=== PATIENT | female | born 1955 | race Caucasian/White ===

== ENCOUNTER → 2016-12-22 | Outpatient (CLI) | payer MEDICARE, MEDICAID ==
[~2016-12-22] MED LIST: ALPR.25T PO; ALPR0.5T7 PO; AMT25T; ASP325T NG; ATR20T PO; BP MEDICATION; BSP10T PO; CLIN-81 PO; CLON1TAB3 PO; DIAZ-345 PO; DIAZ5TAB3 PO; DULO30CA; FNT50TD TD; FRSM40T PO; GBPN100C; GBPN600T PO; HYDR1TAB71 PO; INSASP10V; INSU100V6 SQ; INSU100V8 SC; LACT10SO33 PO; LEVO25CA2 PO; LISI40TA PO; LSNP20T; LVT.025T PO; OMEP20CA12 PO; OXYC10TA63 PO; OXYC5SOL13 PO; POTA10CA16 PO; PROP1TAB77; SITA1TAB6 PO; [UNRECOGNIZED DRUG - REMARK] PO
--- NOTE | 2016-12-25 17:51 | Diagnostic Imaging Report ---
Bilateral screening mammogram. The current study was also evaluated with a Computer Aided Detection (CAD) system. INDICATION: Screening. No current complaints stated on the questionnaire. COMPARISON: 08/12/12. FINDINGS: The breasts are composed of scattered fibroglandular densities. Occasional benign-appearing punctate calcifications are seen. Allowing for technique and positional differences, no suspicious change is seen. IMPRESSION: No significant change. ACR BI-RADS Category 2: Benign findings. Result letter will be mailed to the patient. Note: At least 10% of breast cancer is not imaged by mammography. Dictated by: Dictated on workstation # [id number]
== END ==
LOC: RAD 09:37
PROVIDERS: ATTEND Internal Medicine
DX: Z12.31 Encounter for screening mammogram for malignant neoplasm of breast (principal)
CPT/HCPCS: 77067

== ENCOUNTER → 2017-06-23 | Outpatient (CLI) | payer MEDICARE, MEDICAID ==
[~2017-06-23] MED LIST changes: +ACID1TAB PO; +ALPR1TAB7 PO; +AMLO5TAB2 PO; +ASPI-983 PO; +CEFD300C3 PO; +CLOP75TA28 PO; +DIPH25TA31 PO; +GABA600T2 PO; +HYDR-3820 PO; +HYDR25TA4 PO; +INSU100V16 SQ; +LEVO25TA5 PO; +LIDO76.5 TP; +METH113C21 TP; +OXYC10TA7 PO; +RT-ALBUINH IH; +TEMA15CA PO
--- NOTE | 2017-06-23 19:11 | Diagnostic Imaging Report ---
PA and lateral views of the chest. INDICATION: Pneumonia. FINDINGS: The lungs are clear. The previously seen infiltrates on 06/09/2017 radiograph are resolved. The heart size is at the upper limits of normal. No effusion or pneumothorax. The mediastinum and charbel appear unremarkable. Postkyphoplasty change is seen in the T2 level. IMPRESSION: No acute process. Dictated by: Dictated on workstation # [id number]
== END ==
LOC: RAD 15:48
PROVIDERS: ATTEND Internal Medicine
DX: J18.9 Pneumonia, unspecified organism (principal); R09.02 Hypoxemia
CPT/HCPCS: 71020

== ENCOUNTER 2017-07-12 12:18 | Emergency (ER) | payer MEDICARE, MEDICAID ==
[~2017-07-12] VITALS: Ht 165.1 cm; Wt 125.2 kg
[~2017-07-12 12:18] MED LIST changes: +ATOR10TA PO; +MULT-347 PO
--- OUTSIDE RECORDS SUMMARY | 2017-07-12 12:25 | XMS REPORT | Clinical Summary ---
Author Author [facility] Organization [facility] Address Unknown Phone Unavailable Care Team Providers Care Power Technician Name Role Phone PCP Unavailable Source Comments Some departments are not documenting in the electronic medical record. If you do not see the information that you expected, contact Release of Information in the Health Information Management department at [phone] for further assistance in locating additional records.[facility] Allergies No Known Allergies Current Medications Prescription Sig. Disp. Refills Start End Date Status Date furosemide (LASIX) 40 mg Take 40 mg by mouth Active tablet daily. Sitagliptin-Metformin Take 1 Tab by mouth twice Active (JANUMET) 50-1,000 mg tab daily with meals. methocarbamol (ROBAXIN) Take 750 mg by mouth four Active 750 mg tablet times daily. levothyroxine (SYNTHROID) Take 25 mcg by mouth Active 25 mcg tablet daily. lisinopril (PRINIVIL, Take 40 mg by mouth Active ZESTRIL) 40 mg tablet daily. amLODIPine (NORVASC) 5 mg Take 5 mg by mouth daily. Active tablet aspirin EC 81 mg tablet Take 81 mg by mouth Active daily. gabapentin (NEURONTIN) Take 600 mg by mouth Active 600 mg tablet twice daily. atorvastatin (LIPITOR) 40 Take 40 mg by mouth Active mg tablet daily. insulin glargine (LANTUS) Inject 80 Units into Active 100 unit/mL injection area(s) as directed at bedtime daily. INSULIN ASPART (NOVOLOG Inject into area(s) as Active SC) directed as Needed. Active Problems Problem Noted Date Morbid obesity with BMI of 50.0-59.9, adult ([facility]) 12/14/2013 Overview: BMI 51. 58 year old female with super obesity who presents to clinic for evaluation. She would like to discuss surgery L ast Assessment & Plan: Plan: 1. Risks, benefits and alternatives discussed with patient. She would be a better candidate for gastric sleeve rather than bypass at this point given her many co-morbidities. She will continue bariatric protocol and then we will proceed with surgery (lap gastric sleeve) 2. Needs Cardiology Referral and clearance prior to surgery. 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 Needs Psychology Referral and evaluation prior to surgery. 4. Will see hook and eye sewing machine operator next week and has discussed with Brenna already 5. Patient agrees to lose required weight before surgery. Social History Tobacco Use Types Packs/Day Years Used Date Former Smoker Sex Assigned at Date Recorded Not on file Last Filed Vital Signs Vital Sign Reading Time Taken Blood Pressure 156/74 05/17/2014 11:59 AM CDT Pulse 90 05/17/2014 11:59 AM CDT Temperature 36.9 C (98.4 F) 05/17/2014 11:59 AM CDT Respiratory Rate 18 05/17/2014 11:59 AM CDT Oxygen Saturation - - Inhaled Oxygen - - Concentration Weight 148.6 kg (327 lb 9.6 oz) 05/17/2014 11:59 AM CDT Height 167.6 cm (5' 6") 05/17/2014 11:59 AM CDT Body Mass Index 52.88 05/17/2014 11:59 AM CDT Plan of Treatment Health Maintenance Due Date Last Done Comments HEPATITIS C SCREENING 1954 PHYSICAL (COMPREHENSIVE) 1961 EXAM PERTUSSIS VACCINE 1965 TETANUS VACCINE 1971 CERVICAL CANCER SCREENING 1984 BREAST CANCER SCREENING 1994 COLORECTAL CANCER 2004 SCREENING SHINGLES VACCINE 2014 INFLUENZA VACCINE 03/30/2017 Results Not on filefrom Last 3 Months
--- OUTSIDE RECORDS SUMMARY | 2017-07-12 12:28 | XMS REPORT ---
Author Author GENI RODRIGUEZ [facility] Address Unknown Care Team Providers Care Escort Blind Name Role Phone GENI RODRIGUEZ Unavailable PROBLEMS Type Condition ICD9-CM Code URC76-[id number] Code Onset Dates Condition Status SNOMED Code Problem Encounter for dental examination Z01.20 Active [id number] ALLERGIES No Known Allergies SOCIAL HISTORY Never Assessed PLAN OF CARE VITAL SIGNS MEDICATIONS Medication Instructions Dosage Frequency Start Date End Date Duration Status Temazepam Active Hydrocodone-Acetaminophen Active Lantus Active Gabapentin Active Oxycodone HCl Active Alprazolam Active Lisinopril Active Levothyroxine Sodium Active Norvasc Active Xanax Active RESULTS No Results PROCEDURES Procedure Date Ordered Result Body Site Dental no charge December 16, 2016 IMMUNIZATIONS No Known Immunizations MEDICAL (GENERAL) HISTORY Type Description Date Medical History high blood pressure Medical History stroke Medical History thyroid Medical History diabetes Medical History back trouble Medical History surgery requiring screws Surgical History ruyan y bypass Surgical History appendix Surgical History hysterectomy
[2017-07-12] MEDS ORDERED: ONDANSETRON 4 MG/2 ML (SDV) Z0FRAN IVP ONE (13:00)
[2017-07-12] MEDS ORDERED: fentaNYL INJECTION 100 MCG/2 ML AMP IVP ONE ×2 (13:00→14:15)
--- NOTE | 2017-07-12 13:00 | ED Lower Extremity ---
General Chief Complaint: Lower Extremity Stated Complaint: POST OP RT LEG PAIN, GROIN PAIN Source: patient, RN/ (Marly), old records, caregiver Exam Limitations: no limitations History of Present Illness Time seen by provider: 12:41 Initial Comments Patient presents to ER by private conveyance with a chief complaint she is having significant, severe pain in her right groin. Historically the patient is with diabetes and vascular disease. She has had a heart catheter in the past and recently had pneumonia. She says 4 days ago she had a angiogram through the right femoral artery looking at her lower extremities for a nonhealing left heel ulcer. She had an ultrasound that was positive but the angiogram did not show actionable, obstructive vascular disease. Dr. Luke spoke with this provider prior to her arrival as he had sent her over from his office to be evaluated and he recommended workup for possible fistular cellulitis. The patient reports that she has chronic back pain that does not usually radiate down her have sciatica and she says she also has pretty significant neuropathy and does not have much pain in her legs ever. However she does use hydrocodone 10 mg every 6 hours alternated with oxycodone 10 mg every 6 hours as needed for pain. She says since she has had to use up to 4 hydrocodone and for oxycodone every 6 hours to get any relief of her pain. Her pain relief only lasts about 4-6 hours. She is concerned about using as much pain medicine and has not had a bowel movement in 4 days. She has not been using her over-the- counter bowel regimen because she is only focused on her pain she says. She is having no diarrhea, dysuria, discharge, rash, fever, chills. She is had no trauma or falls. She says it hurts to move her leg but is okay at rest. She is having a hard time standing on that leg secondary to pain. No other surgery to the right hip. Allergies and Home Medications Allergies Uncoded Allergies: TAPE (Allergy, Intermediate, 11/11/14) Home Medications Alprazolam 1 Mg Tablet, 1 MG PO EVERY 6-8 HOURS PRN for ANXIETY, (Reported) Amlodipine Besylate 5 Mg Tablet, 5 MG PO DAILY, (Reported) Aspirin 81 Mg Tablet.dr, 81 MG PO DAILY, (Reported) Atorvastatin Calcium 10 Mg Tablet, 10 MG PO DAILY for 90 Days, #90 Ref 3 Prescribed by: Gema LUKE on 07/08/17 1047 Diazepam 5 Mg Tablet, 5 MG PO Q12H PRN for MUSCLE SPASMS, (Reported) Diphenhydramine HCl 25 Mg Tablet, 25 MG PO Q12H PRN for ALLERGIES, (Reported) Gabapentin 600 Mg Tablet, 600 MG PO BID, (Reported) Hydrocodone/Acetaminophen 1 Each Tablet, 1 TAB PO Q6H PRN for PAIN-MODERATE, ( Reported) Insulin Aspart 100 Unit/1 Ml Susp, 4-15 UNITS SQ SLIDING/SCALE PRN for BS ABOVE 200, (Reported) Insulin Glargine,Hum.rec.anlog 100 Unit/1 Ml Vial, 80 UNITS SQ HS, (Reported) Levothyroxine Sodium 25 Mcg Tablet, 25 MCG PO DAILY, (Reported) Lidocaine HCl 76.5 Gm Cream..g., TP QID PRN for LEG PAIN, (Reported) Lisinopril 40 Mg Tablet, 40 MG PO DAILY, (Reported) Methyl Salicylate/Menthol 113 Gm Cream..g., TP QID PRN for LEG PAIN, (Reported) Multivitamins with Iron 1 Each Tablet, 1 TAB PO DAILY, (Reported) Oxycodone HCl 10 Mg Tablet, 10 MG PO Q6H PRN for PAIN-SEVERE, (Reported) Temazepam 15 Mg Capsule, 15 MG PO HS, (Reported) Constitutional: No chills, No fever, No malaise EENTM: no symptoms reported Respiratory: No cough, No short of breath Cardiovascular: No chest pain, No palpitations Gastrointestinal: No abdominal pain, constipation, No diarrhea, nausea, No vomiting Genitourinary: No discharge, No dysuria : No (postmenopausal) Musculoskeletal: see HPI, back pain Skin: pruritus, rash Past Riinfvw-Uqocbk-Prvspi Hx Patient Social History Alcohol Use: Denies Use Recreational Drug Use: No Smoking Status: Former Smoker Type Used: Cigarettes Former Smoker, Quit: Jul 08, 2010 2nd Hand Smoke Exposure: No Recent Foreign Travel: No Contact w/Someone Who Travel: No Recent Hopitalizations: No Immunizations Up To Date Date of Pneumonia Vaccine: Jun 13, 2013 Date of Influenza Vaccine: May 27, 2017 Seasonal Allergies Seasonal Allergies: Yes Surgeries History of Surgeries: Yes (HYSTERECTOMY 1978, APPY S, GASTRIC BYPASS, BACK KYPHOPLASTY) Surgeries: Abdominal, Appendectomy, Hysterectomy Respiratory History of Respiratory Disorde: Yes (USED TO HAVE HOME O2 PRN) Currently Using CPAP: No Currently Using BIPAP: No Cardiovascular History of Cardiac Disorders: Yes Cardiac Disorders: Hypertension Neurological History of Neurological Disord: Yes Neurological Disorders: Stroke Reproductive System Hx Reproductive Disorders: No Sexually Transmitted Disease: No HIV/AIDS: No 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 Disorders: Denies Genitourinary History of Genitourinary Disor: Yes Genitourinary Disorders: UTI-Chronic Gastrointestinal History of Gastrointestinal Di: Yes (UMBILICAL HERNIA, OCCASIONAL CONSTIPATION- -TAKES LACTULOSE, GASTRIC BYPASS) Gastrointestinal Disorders: Chronic Constipation Musculoskeletal History of Musculoskeletal Dis: Yes (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, 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 IN SOFT TISSUE, L1-2 FX,) Musculoskeletal Disorders: Back Injury, Chronic Back Pain, Fractures Endocrine History of Endocrine Disorders: Yes Endocrine Disorders: Diabetes, Insulin dep HEENT History of HEENT Disorders: Yes HEENT Disorders: Glaucoma Hearing Impairment: Hard of Hearing Cancer History of Cancer: No Psychosocial History of Psychiatric Problem: Yes Behavioral Health Disorders: Anxiety Integumentary History of Skin or Integumenta: No Blood Transfusions History of Blood Disorders: No Family Medical History Family Medial History: Diabetes mellitus G8 BROTHER FH: skin cancer 19 FATHER Hypertension Physical Exam Vital Signs Vital Sign - Last 12Hours 07/12/ 12:40 Temp 98.9 Pulse 85 Resp 20 B/P (MAP) 126/63 Pulse Ox 94 Capillary Refill : General Appearance: WD/WN, mild distress HEENT: PERRL/EOMI, TMs normal, pharynx normal Neck: non-tender, normal inspection, No tender midline Cardiovascular: normal peripheral pulses, regular rate, rhythm, other (trace pedal edema bilaterally) Respiratory: chest non-tender, lungs clear, normal breath sounds Gastrointestinal: normal bowel sounds, non tender, soft, other (corpulent) Back: normal inspection, vertebral tenderness (lumbar) Hips: left hip non-tender, left hip normal inspection, left hip normal range of motion, left hip no evidence of injury, right hip bone tenderness (Medial right femoral head and neck), right hip ecchymosis (popliteal fossa, mild and dependent gluteal region.), right hip limited range of motion (secondary to pain ), right hip pain, right hip soft tissue tenderness, right hip other (erythema to the overlying skin of the right groin but no palpable, pulsatile or fluctuant mass.) Legs: bilateral leg non-tender, bilateral leg normal inspection, bilateral leg normal range of motion, bilateral leg no evidence of injury Knees: bilateral knee non-tender, bilateral knee normal inspection, bilateral knee normal range of motion, bilateral knee no evidence of injury Neurologic/Tendon: normal sensation, normal motor functions, normal tendon functions, responds to pain Neurologic/Psychiatric: no motor/sensory deficits, alert, oriented x 3 Skin: ecchymosis (dependent portions of the right hip and popliteal space.), rash (erythematous skin under the folds of the pannus especially on the right side without any debris, tumor, area of fluctuance, pore or discharge.) Lymphatic: no adenopathy Progress/Results/Core Measures Results/Orders Lab Results Laboratory Tests Test 07/12/17 12:50 07/12/17 13:12 Range/Units White Blood Count 10.1 4.3-11.0 10^3/uL Red Blood Count 2.72 L 4.35-5.85 10^6/uL Hemoglobin 8.2 #L 11.5-16.0 G/DL Hematocrit 26 L 35-52 % Mean Corpuscular Volume 96 80-99 FL Mean Corpuscular Hemoglobin 30 25-34 PG Mean Corpuscular Hemoglobin Concent 31 L 32-36 G/DL Red Cell Distribution Width 14.2 10.0-14.5 % Platelet Count 233 130-400 10^3/uL Mean Platelet Volume 12.3 H 7.4-10.4 FL Neutrophils (%) (Auto) 74 42-75 % Lymphocytes (%) (Auto) 18 12-44 % Monocytes (%) (Auto) 5 0-12 % Eosinophils (%) (Auto) 3 0-10 % Basophils (%) (Auto) 0 0-10 % Neutrophils # (Auto) 7.5 1.8-7.8 X 10^3 Lymphocytes # (Auto) 1.8 1.0-4.0 X 10^3 Monocytes # (Auto) 0.5 0.0-1.0 X 10^3 Eosinophils # (Auto) 0.3 0.0-0.3 10^3/uL Basophils # (Auto) 0.0 0.0-0.1 10^3/uL Sodium Level 134 L 135-145 MMOL/L Potassium Level 5.9 H 3.6-5.0 MMOL/L Chloride Level 104 98-107 MMOL/L Carbon Dioxide Level 22 21-32 MMOL/L Anion Gap 8 5-14 MMOL/L Blood Urea Nitrogen 33 H 7-18 MG/DL Creatinine 1.62 H 0.60-1.30 MG/DL Estimat Glomerular Filtration Rate 32 BUN/Creatinine Ratio 20 Glucose Level 221 H 70-105 MG/DL Lactic Acid Level 1.43 0.50-2.00 MMOL/L Calcium Level 8.5 8.5-10.1 MG/DL Total Bilirubin 0.4 0.1-1.0 MG/DL Aspartate Amino Transf (AST/SGOT) 12 5-34 U/L Alanine Aminotransferase (ALT/SGPT) 12 0-55 U/L Alkaline Phosphatase 105 40-136 U/L Total Protein 7.2 6.4-8.2 GM/DL Albumin 3.6 3.2-4.5 GM/DL Urine Color YELLOW Urine Clarity CLEAR Urine pH 5 5-9 Urine Specific [place] 1.025 H 1.016-1.022 Urine Protein 1+ H NEGATIVE Urine Glucose (UA) NEGATIVE NEGATIVE Urine Ketones NEGATIVE NEGATIVE Urine Nitrite NEGATIVE NEGATIVE Urine Bilirubin NEGATIVE NEGATIVE Urine Urobilinogen NORMAL NORMAL MG/DL Urine Leukocyte Esterase 1+ H NEGATIVE Urine RBC (Auto) NEGATIVE NEGATIVE Urine RBC NONE /HPF Urine WBC 0-2 /HPF Urine Squamous Epithelial Cells 0-2 /HPF Urine Crystals PRESENT H /LPF Urine Uric Acid Crystals RARE H /LPF Urine Bacteria TRACE /HPF Urine Casts NONE /LPF Urine Mucus NEGATIVE /LPF Urine Culture Indicated NO My Orders Orders - KAROL MCCOY Cbc With Automated Diff (07/12/17 12:49) Comprehensive Metabolic Panel (07/12/17 12:49) Lactic Acid Analyzer (07/12/17 12:49) Ua Culture If Indicated (07/12/17 12:49) Blood Culture (07/12/17 12:49) Us Right Low Ext [id number] (07/12/17 12:49) Ondansetron Injection (Zofran Injectio (07/12/17 13:00) Fentanyl Injection (Sublimaze Injection (07/12/17 13:00) Us Venous Lower Ext Rt (07/12/17 ) Fentanyl Injection (Sublimaze Injection (07/12/17 14:15) Saline Lock/Iv-Start (07/12/17 14:06) Ns Iv 1000 Ml (Sodium Chloride 0.9%) (07/12/17 14:06) Ct Abdomen/Pelvis Wo (07/12/17 14:33) Medications Given in ED Current Medications Medications Dose Ordered Sig/Judi Route Start Time Stop Time Status Last Admin Dose Admin Fentanyl Citrate 50 mcg ONCE ONCE IVP 07/12/17 14:15 07/12/17 14:16 DC 07/12/17 14:14 50 MCG Fentanyl Citrate 100 mcg ONCE ONCE IVP 07/12/17 13:00 07/12/17 13:01 DC 07/12/17 12:59 100 MCG Ondansetron HCl 4 mg ONCE ONCE IVP 07/12/17 13:00 07/12/17 13:01 DC 07/12/17 12:59 4 MG Sodium Chloride 1,000 ml @ 0 mls/hr Q0M ONCE IV 07/12/17 14:06 07/12/17 14:08 DC 07/12/17 14:14 0 MLS/HR Vital Signs/I&O Vital Sign - Last 12Hours 07/12/17 12:40 Temp 98.9 Pulse 85 Resp 20 B/P (MAP) 126/63 Pulse Ox 94 Progress Note #1: Time: 13:04 Progress Note We'll obtain an ultrasound of the right femoral area looking for fistulas, abscesses or other evidence of a cellulitis. We'll treat her pain and nausea. We 'll obtain urine by straight catheter and some blood cultures in case she does have an infection. We'll also obtain ultrasound of the deep veins of the right lower extremity to rule out a clot. If we do not find an answer for her pain when may also obtain MRI of her back and hips looking for worsening degenerative lumbar joint disease. Progress Note #2: Time: 14:03 Progress Note Acute kidney injury and the acute blood loss anemia probably due to the recent catheter. We'll give her a bag of fluids. We'll also obtain a CT abdomen pelvis to rule out any other emergent pathology. If she is having pain from her exacerbation of chronic back pain and a outpatient MRI would likely be more useful. Discussed imaging options with Dr. Norman, radiology. Progress Note #3: Time: 15:57 Progress Note Consolidation left lower lobe seen on CT as noted and clinically there is no evidence of a pneumonia. No white count, cough, fever. We will allow her to follow up outpatient for continued pain management with Dr. Ayoub. Patient is okay with this plan at this time. Her pain is under much better control and has not required any more pain meds for some time. Diagnostic Imaging Diagonstic Imaging: Ultrasound Plain Films/CT/US/NM/MRI: leg (right) Comments [facility] [employer] [facility] [place], [place] NAME: TOSHA LEVINE [facility] REC#: [id number] PT STATUS: REG ER : 1955 PHYSICIAN: KAROL MCCOY MD ADMIT DATE: 07/12/17/ER Draft Date of Exam:07/12/17 US RIGHT LOW EXT [id number] EXAM: Arterial vascular ultrasound of the right groin. INDICATION: History of cardiac catheter performed last with pain in the right groin. FINDINGS: There is an expected tiny hematoma measuring 1.5 x 2.1 x 1.7 cm seen anterior to the SFA, expected after a cardiac cath with no significant hematoma. No pseudoaneurysm. There is color flow within the common femoral artery with mildly increased flow velocity of 183 cm/second and triphasic waveforms. The proximal SFA is also patent with triphasic waveforms and velocity of 142 cm/second. The common femoral vein is patent with normal waveforms. IMPRESSION: No significant hematoma, pseudoaneurysm or evidence of AV fistula. Dictated on workstation # [id number] Dict: 07/12/17 1504 Trans: 07/12/17 1518 [facility] [id number] Interpreted by: TARYN NORMAN MD Electronically signed by: NAME: RYANARMINDAANITATOSHA [facility] REC#: [id number] PHYSICIAN: KAROL MCCOY MD CC: TARYN NORMAN MD; KAROL MCCOY Page 1 of 1 RADIOLOGY REPORT [facility] [employer] [facility] [place], [place] CC: TARYN NORMAN MD; KAROL MCCOY Page 1 of 1 RADIOLOGY REPORT NAME: ANITA LEVINELEEN [facility] REC#: [id number] PT STATUS: REG ER : 1955 PHYSICIAN: KAROL MCCOY MD ADMIT DATE: 07/12/17/ER Signed Date of Exam: 07/12/17 US VENOUS LOWER EXT RT EXAMINATION: Right lower extremity duplex venous ultrasound. TECHNIQUE: DVT protocol. Multiple sonographic images with color Doppler and waveform interrogation were performed of the right lower extremity veins with compression and augmentation maneuvers. INDICATION: Right leg pain and swelling. FINDINGS: The right lower extremity veins from the groin to below the knee veins were examined with normal color-flow, compressibility and normal waveform demonstrated. The great saphenous vein is patent. IMPRESSION: No evidence of DVT in the right lower extremity. Dictated by: Dictated on workstation # [id number] Dict: 07/12/17 1500 Trans: 07/12/17 1500 Interpreted by: TARYN NORMAN MD Electronically signed by: TARYN NORMAN MD 07/12/17 1500 Reviewed: Reviewed by Or Diagonstic Imaging: CT Plain Films/CT/US/NM/MRI: abdomen, pelvis Comments Left base dependent portion with small area of consolidation most consistent with mild atelectasis. Is mostly decompressed. Stone in the right renal pelvis nonobstructing. Gallbladder noninflammatory without free fluid. Large nonobstructing umbilical/ventral hernia containing a loop of small bowel. No evidence of free fluid, inflammation, stridor relation or incarceration. VIA [place], [place] NAME: TOSHA LEVINE [facility] REC#: [id number] PT STATUS: REG ER : 1955 PHYSICIAN: KAROL MCCOY MD ADMIT DATE: 07/12/17/ER Draft Date of Exam:07/12/17 CT ABDOMEN/PELVIS WO PROCEDURE: CT abdomen and pelvis without contrast. TECHNIQUE: Multiple contiguous axial images were obtained through the abdomen and pelvis without the use of intravenous contrast. INDICATION: Right-sided groin pain. FINDINGS: There is a left lower lobe consolidation which could relate to pneumonia or atelectasis. The liver, the spleen, the pancreas, and adrenal glands appear unremarkable. The gallbladder is hydropic with the suggestion of layering sludge. No obvious calcified stones. Staple line is seen along the stomach and in small bowel loops within the proximal left side of the abdomen. No significant free fluid or fluid collection in the abdomen or pelvis is seen. The kidneys demonstrate no hydronephrosis. There is a 9 mm nonobstructive stone in the mid right kidney. No ureteric stones or bladder stone is identified. No significant free fluid or fluid collection in the abdomen or pelvis is seen. Changes suggestive of prior hysterectomy are noted. There is an abdominal wall defect with a ventral hernia containing nonobstructed bowel loops seen centered just to the right of midline in the lower abdomen. No CT evidence of strangulation or bowel obstruction. The abdominal wall corresponding defect measures in craniocaudal dimension 3 cm and is 5 cm in transverse dimension. The osseous structures demonstrate post-kyphoplasty changes in the L1 vertebral body. There are prominent degenerative facet changes in the mid and lower lumbar spine and disc degenerative changes at L4-5 and L5-S1 seen. There is also bilateral hip joint moderate degenerative change. In the right groin post catheter changes are seen with a small hematoma noted. IMPRESSION: 1. Left lower lobe consolidation may relate to pneumonia or atelectasis. Correlate clinically. 2. There is gallbladder wall distention with suggestion of layering sludge. No definite calcified stone. 3. A 9 mm nonobstructive stone in the right kidney. 4. Ventral hernia in the lower abdomen containing nonobstructed bowel loops. 5. Right groin changes suggestive of small hematoma related to recent vascular procedure seen. Dictated on workstation # [id number] Dict: 07/12/17 1518 Trans: 07/12/17 1546 [facility] [id number] Interpreted by: TARYN NORMAN MD Electronically signed by: Reviewed: Reviewed by Me Consults Consults : Consulting Physician: Gema LUKE MD Consults Notes 4 days ago he performed a right femoral catheter to look at the angiogram of the lower left extremity and did not find any obstructive disease. She says she' s had pain since then and has been using increasing pain meds to get control of her pain. He says he listened could not hear a bruit or feel any thrills over the right femoral space. He recommends we ultrasound the area looking for a fistula as well as her lower extremity on the right side looking for deep vein thrombosis. He would recommend a CBC to follow the hemoglobin as well as possible leukocytosis to indicate infection. If he can be of any further help he would like us to contact him. Otherwise she thinks would be reasonable if everything else is okay for her to follow up for pain management with her primary care physician this week. Departure Impression Impression: Primary Impression: SANTOS (acute kidney injury) Additional Impressions: Acute blood loss anemia Right inguinal pain Hematoma of groin Qualified Codes: S30.1XXA - Contusion of abdominal wall, initial encounter Disposition: HOME, SELF-CARE Condition: Stable Departure-Patient Inst. Decision time for Depature: 15:59 Referrals: MARIE AYOUB DO (PCP/Family) Primary Care Physician Patient Instructions: HEMATOMA Add. Discharge Instructions: Please stay active and follow-up this week with your primary care physician for continued management of your pain. You should start taking MiraLAX twice a day while using opiates at higher level. Titrate to effect. If you have worsening chest pain, shortness of breath, fevers or nausea and vomiting he should return to the ER otherwise follow up with your primary care physician. All discharge instructions reviewed with patient and/or family. Voiced understanding. Copy Copies To 1: MARIE AYOBU TITUS J Jul 12, 2017 13:00
[2017-07-12 13:04] LABS: BASOPHILS % (AUTO) 0 % (0-10); EOSINOPHILS # (AUTO) 0.3 10^3/uL (0.0-0.3); EOSINOPHILS % (AUTO) 3 % (0-10); LYMPHOCYTES # (AUTO) 1.8 X 10^3 (1.0-4.0); LYMPHOCYTES % (AUTO) 18 % (12-44); MEAN CORPUSCULAR HEMOGLOBIN 30 PG (25-34); MEAN CORPUSCULAR HGB CONC 31 G/DL (32-36); MEAN CORPUSCULAR VOLUME 96 FL (80-99); MEAN PLATELET VOLUME 12.3 FL (7.4-10.4); MONOCYTES # (AUTO) 0.5 X 10^3 (0.0-1.0); MONOCYTES % (AUTO) 5 % (0-12); NEUTROPHILS # (AUTO) 7.5 X 10^3 (1.8-7.8); NEUTROPHILS % (AUTO) 74 % (42-75); PLATELET COUNT 233 10^3/uL (130-400); RED BLOOD COUNT 2.72 10^6/uL (4.35-5.85); RED CELL DISTRIBUTION WIDTH 14.2 % (10.0-14.5); WHITE BLOOD COUNT 10.1 10^3/uL (4.3-11.0)
[2017-07-12 13:15] LABS: ALBUMIN 3.6 GM/DL (3.2-4.5); BILIRUBIN,TOTAL 0.4 MG/DL (0.1-1.0); CALCIUM 8.5 MG/DL (8.5-10.1); CREATININE SERUM 1.62 MG/DL (0.60-1.30); POTASSIUM 5.9 MMOL/L (3.6-5.0); TOTAL PROTEIN 7.2 GM/DL (6.4-8.2)
[2017-07-12 13:22] LABS: BILIRUBIN,URINE NEGATIVE (NEGATIVE); KETONES,URINE NEGATIVE (NEGATIVE); LEUKOCYTE ESTERASE ,URINE 1+ (NEGATIVE); NITRITE,URINE NEGATIVE (NEGATIVE); PH,URINE 5 (5-9); PROTEIN,URINE 1+ (NEGATIVE); UROBILINOGEN,URINE NORMAL (NORMAL)
[2017-07-12 13:37] LABS: SQUAMOUS EPITHELIAL CELL,UR 0-2 /HPF; URIC ACID CRYSTALS,URINE RARE /LPF; WBC,URINE 0-2 /HPF
[2017-07-12] MEDS ORDERED: NS IV 1000 ML 1,000 ML IV ONE (14:06)
--- NOTE | 2017-07-12 15:03 | Diagnostic Imaging Report ---
EXAMINATION: Right lower extremity duplex venous ultrasound. TECHNIQUE: DVT protocol. Multiple sonographic images with color Doppler and waveform interrogation were performed of the right lower extremity veins with compression and augmentation maneuvers. INDICATION: Right leg pain and swelling. FINDINGS: The right lower extremity veins from the groin to below the knee veins were examined with normal color-flow, compressibility and normal waveform demonstrated. The great saphenous vein is patent. IMPRESSION: No evidence of DVT in the right lower extremity. Dictated by: Dictated on workstation # [id number]
--- NOTE | 2017-07-12 15:19 | Diagnostic Imaging Report ---
EXAM: Arterial vascular ultrasound of the right groin. INDICATION: History of cardiac catheter performed last with pain in the right groin. FINDINGS: There is an expected tiny hematoma measuring 1.5 x 2.1 x 1.7 cm seen anterior to the SFA, expected after a cardiac cath with no significant hematoma. No pseudoaneurysm. There is color flow within the common femoral artery with mildly increased flow velocity of 183 cm/second and triphasic waveforms. The proximal SFA is also patent with triphasic waveforms and velocity of 142 cm/second. The common femoral vein is patent with normal waveforms. IMPRESSION: No significant hematoma, pseudoaneurysm or evidence of AV fistula. Dictated by: Dictated on workstation # [id number]
--- NOTE | 2017-07-12 15:46 | Diagnostic Imaging Report ---
PROCEDURE: CT abdomen and pelvis without contrast. TECHNIQUE: Multiple contiguous axial images were obtained through the abdomen and pelvis without the use of intravenous contrast. INDICATION: Right-sided groin pain. FINDINGS: There is a left lower lobe consolidation which could relate to pneumonia or atelectasis. The liver, the spleen, the pancreas, and adrenal glands appear unremarkable. The gallbladder is hydropic with the suggestion of layering sludge. No obvious calcified stones. Staple line is seen along the stomach and in small bowel loops within the proximal left side of the abdomen. No significant free fluid or fluid collection in the abdomen or pelvis is seen. The kidneys demonstrate no hydronephrosis. There is a 9 mm nonobstructive stone in the mid right kidney. No ureteric stones or bladder stone is identified. No significant free fluid or fluid collection in the abdomen or pelvis is seen. Changes suggestive of prior hysterectomy are noted. There is an abdominal wall defect with a ventral hernia containing nonobstructed bowel loops seen centered just to the right of midline in the lower abdomen. No CT evidence of strangulation or bowel obstruction. The abdominal wall corresponding defect measures in craniocaudal dimension 3 cm and is 5 cm in transverse dimension. The osseous structures demonstrate post-kyphoplasty changes in the L1 vertebral body. There are prominent degenerative facet changes in the mid and lower lumbar spine and disc degenerative changes at L4-5 and L5-S1 seen. There is also bilateral hip joint moderate degenerative change. In the right groin post catheter changes are seen with a small hematoma noted. IMPRESSION: 1. Left lower lobe consolidation may relate to pneumonia or atelectasis. Correlate clinically. 2. There is gallbladder wall distention with suggestion of layering sludge. No definite calcified stone. 3. A 9 mm nonobstructive stone in the right kidney. 4. Ventral hernia in the lower abdomen containing nonobstructed bowel loops. 5. Right groin changes suggestive of small hematoma related to recent vascular procedure seen. Dictated by: Dictated on workstation # [id number]
[2017-07-12 16:13] VITALS: BP 145/78
== END 2017-07-12 16:13 | disposition home or self-care (01) ==
LOC: EDUNIT# 12:18 → ER 12:21
DX: N17.9 Acute kidney failure, unspecified (principal); D62 Acute posthemorrhagic anemia; M79.81 Nontraumatic hematoma of soft tissue; F41.9 Anxiety disorder, unspecified; E11.40 Type 2 diabetes mellitus with diabetic neuropathy, unspecified; E11.621 Type 2 diabetes mellitus with foot ulcer; L97.429 Non-pressure chronic ulcer of left heel and midfoot with unspecified severity; K59.09 Other constipation; Z87.01 Personal history of pneumonia (recurrent); Z87.81 Personal history of (healed) traumatic fracture; Z87.828 Personal history of other (healed) physical injury and trauma; Z86.73 Personal history of transient ischemic attack (TIA), and cerebral infarction without residual deficits; Z90.710 Acquired absence of both cervix and uterus; Z90.49 Acquired absence of other specified parts of digestive tract; Z90.89 Acquired absence of other organs; Z87.891 Personal history of nicotine dependence; Z79.4 Long term (current) use of insulin; Z79.82 Long term (current) use of aspirin
CPT/HCPCS: 36415; 51701; 74176; 80053; 81000; 83605; 85025; 87040; 93926

== ENCOUNTER 2017-07-14 07:42 | Observation (INO) | payer MEDICARE, MEDICAID ==
[~2017-07-14] VITALS: Ht 170.2 cm; Wt 125.2 kg
--- OUTSIDE RECORDS SUMMARY | 2017-07-14 07:52 | XMS REPORT ---
Author Author RODERICK LEMONS Organization [facility] Address [address] [place] [address] Care Team Providers Care Medical Office Technology Instructor Name Role Phone CRISTO RODERICK Unavailable PROBLEMS Type Condition ICD9-CM Code [id number] Code Onset Dates Condition Status SNOMED Code Problem Encounter for dental examination Z01.20 Active [id number] ALLERGIES No Known Allergies SOCIAL HISTORY Never Assessed PLAN OF CARE Activity Details Follow Up First Available Reason:Restorative VITAL SIGNS Heart Rate 71 bpm 2016-12-29 Blood pressure systolic 154 mmHg 2016-12-29 Blood pressure diastolic 87 mmHg 2016-12-29 MEDICATIONS Medication Instructions Dosage Frequency Start Date End Date Duration Status Lisinopril Active Gabapentin Active Xanax Active Temazepam Active Norvasc Active Oxycodone HCl Active Levothyroxine Sodium Active Hydrocodone-Acetaminophen Active Alprazolam Active Lantus Active RESULTS No Results PROCEDURES Procedure Date Ordered Result Body Site COMP ORAL EVALUATION - NEW/EST PT December 29, 2016 BITEWINGS - TWO FILMS December 29, 2016 TOPICAL FLUORIDE VARNISH December 29, 2016 PROPHYLAXIS - ADULT December 29, 2016 IMMUNIZATIONS No Known Immunizations MEDICAL (GENERAL) HISTORY Type Description Date Medical History high blood pressure Medical History stroke Medical History thyroid Medical History diabetes Medical History back trouble Medical History surgery requiring screws Surgical History ruyan y bypass Surgical History appendix Surgical History hysterectomy
--- OUTSIDE RECORDS SUMMARY | 2017-07-14 07:52 | XMS REPORT | Clinical Summary ---
Author Author [facility] Organization [facility] Address Unknown Phone Unavailable Care Team Providers Care Inspector Process Name Role Phone PCP Unavailable Source Comments Some departments are not documenting in the electronic medical record. If you do not see the information that you expected, contact Release of Information in the Health Information Management department at [phone] for further assistance in locating additional records.[facility] Allergies No Known Allergies Current Medications Prescription [...] Morbid obesity with BMI of 50.0-59.9, adult ([facility]) 12/14/2013 Overview: BMI 51. 58 year old [...] prior to surgery. Evelio does not have sales specialist 3. Needs Psychology Referral and evaluation prior to surgery. 4. Will see carpet installer next week and has discussed with Brenna [...]
[2017-07-14 08:13] LABS: BASOPHILS % (AUTO) 0 % (0-10); EOSINOPHILS # (AUTO) 0.2 10^3/uL (0.0-0.3); EOSINOPHILS % (AUTO) 2 % (0-10); LYMPHOCYTES # (AUTO) 1.3 X 10^3 (1.0-4.0); LYMPHOCYTES % (AUTO) 16 % (12-44); MEAN CORPUSCULAR HEMOGLOBIN 30 PG (25-34); MEAN CORPUSCULAR HGB CONC 32 G/DL (32-36); MEAN CORPUSCULAR VOLUME 95 FL (80-99); MEAN PLATELET VOLUME 11.2 FL (7.4-10.4); MONOCYTES # (AUTO) 0.5 X 10^3 (0.0-1.0); MONOCYTES % (AUTO) 6 % (0-12); NEUTROPHILS # (AUTO) 6.1 X 10^3 (1.8-7.8); NEUTROPHILS % (AUTO) 76 % (42-75); PLATELET COUNT 245 10^3/uL (130-400); RED BLOOD COUNT 2.78 10^6/uL (4.35-5.85); RED CELL DISTRIBUTION WIDTH 13.7 % (10.0-14.5); WHITE BLOOD COUNT 8.1 10^3/uL (4.3-11.0)
[2017-07-14] MEDS ORDERED: LORazepam INJ 2 MG/ML (ATIVAN) VIAL IVP ONE (08:15)
[2017-07-14] MEDS ORDERED: fentaNYL INJECTION 100 MCG/2 ML AMP IVP ONE ×2 (08:15→10:30)
[2017-07-14 08:30] LABS: ALBUMIN 3.6 GM/DL (3.2-4.5); BILIRUBIN,TOTAL 0.6 MG/DL (0.1-1.0); CALCIUM 8.9 MG/DL (8.5-10.1); CREATININE SERUM 1.09 MG/DL (0.60-1.30); POTASSIUM 5.4 MMOL/L (3.6-5.0); TOTAL PROTEIN 7.1 GM/DL (6.4-8.2); hs C REACTIVE PROTEIN 4.03 MG/DL (0.00-0.50)
[2017-07-14] MEDS ORDERED: NS IV 1000 ML 1,000 ML IV ONE (08:38)
--- NOTE | 2017-07-14 08:53 | ED General ---
General Stated Complaint: RT LEG AND STOMACH PAIN,POST OP Source of Information: Patient, Old Records Exam Limitations: No Limitations History of Present Illness Time Seen by Provider: 07:45 Initial Comments This 61-year-old woman presents to the emergency room with complaints of right groin and leg pain that has been intense since having a catheterization angiography of the lower extremities on May 08. She has been taking her usual pain medications without significant relief. She was seen in this ER on the and evaluated with ultrasound and CT scan. There were several incidental findings but no specific finding to explain her pain. There was a small hematoma in the right groin. Patient is crying and yelling at me on assessment. She is difficult to understand because of her emotional state. She reports difficulty bearing weight and walking because of the pain in her thigh. She has ecchymosis and warmth to the inner upper thigh. She was noted to have acute kidney injury on her prior visit to the ER. Report, lab, and imaging from her ER visit on the were reviewed. Patient was noted to have mild to moderate peripheral vascular disease without stenosis requiring intervention. Allergies and Home Medications Allergies Uncoded Allergies: TAPE (Allergy, Intermediate, 11/11/14) Home Medications Albuterol Sulfate 18 Gm Hfa.aer.ad, 2 PUFF INH Q4H PRN for SHORTNESS OF BREATH, (Reported) Alprazolam 1 Mg Tablet, 1 MG PO QID PRN for ANXIETY, (Reported) Amlodipine Besylate 5 Mg Tablet, 5 MG PO DAILY, (Reported) Aspirin 81 Mg Tablet.dr, 81 MG PO DAILY, (Reported) Atorvastatin Calcium 10 Mg Tablet, 10 MG PO DAILY, (Reported) Diazepam 5 Mg Tablet, 5 MG PO Q12H PRN for MUSCLE SPASMS, (Reported) Diphenhydramine HCl 25 Mg Tablet, 25 MG PO Q12H PRN for ALLERGIES, (Reported) Gabapentin 600 Mg Tablet, 600 MG PO BID, (Reported) Hydrocodone/Acetaminophen 1 Each Tablet, 1 TAB PO Q6H PRN for PAIN-MODERATE, ( Reported) Insulin Aspart 100 Unit/1 Ml Susp, 4-15 UNITS SQ SLIDING/SCALE PRN for BS ABOVE 200, (Reported) Insulin Glargine,Hum.rec.anlog 100 Unit/1 Ml Vial, 80 UNITS SQ HS, (Reported) Levothyroxine Sodium 25 Mcg Tablet, 25 MCG PO DAILY, (Reported) Lidocaine HCl 76.5 Gm Cream..g., TP QID PRN for LEG PAIN, (Reported) Lisinopril 40 Mg Tablet, 40 MG PO DAILY, (Reported) Methyl Salicylate/Menthol 113 Gm Cream..g., TP QID PRN for LEG PAIN, (Reported) Multivitamins with Iron 1 Each Tablet, 1 TAB PO DAILY, (Reported) Oxycodone HCl 10 Mg Tablet, 10 MG PO Q6H PRN for PAIN-SEVERE, (Reported) Temazepam 15 Mg Capsule, 15 MG PO HS, (Reported) Constitutional: no symptoms reported EENTM: no symptoms reported Respiratory: no symptoms reported Cardiovascular: no symptoms reported Gastrointestinal: no symptoms reported Genitourinary: no symptoms reported Musculoskeletal: see HPI Skin: see HPI Psychiatric/Neurological: No Symptoms Reported Hematologic/Lymphatic: See HPI Immunological/Allergic: no symptoms reported Past Ycpoolx-Jqmfmn-Lmvsfg Hx Patient Social History Type Used: Cigarettes Former Smoker, Quit: Jul 08, 2010 2nd Hand Smoke Exposure: No Recent Foreign Travel: No Contact w/Someone Who Travel: No Recent Hopitalizations: No Immunizations Up To Date Date of Pneumonia Vaccine: Jun 13, 2013 Date of Influenza Vaccine: May 27, 2017 Seasonal Allergies Seasonal Allergies: Yes Surgeries History of Surgeries: Yes (HYSTERECTOMY 1978, APPY 1959'S, GASTRIC BYPASS, BACK KYPHOPLASTY) Surgeries: Abdominal, Appendectomy, Hysterectomy, Vascular Surgery Respiratory History of Respiratory Disorde: Yes (USED TO HAVE HOME O2 PRN) Currently Using CPAP: No Currently Using BIPAP: No Cardiovascular History of Cardiac Disorders: Yes Cardiac Disorders: Hypertension, Peripheral Vascular Neurological History of Neurological Disord: Yes Neurological Disorders: Stroke Reproductive System Hx Reproductive Disorders: No Sexually Transmitted Disease: No HIV/AIDS: No 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 Disorders: Denies Genitourinary History of Genitourinary Disor: Yes Genitourinary Disorders: UTI-Chronic Gastrointestinal History of Gastrointestinal Di: Yes (UMBILICAL HERNIA, OCCASIONAL CONSTIPATION- -TAKES LACTULOSE, GASTRIC BYPASS) Gastrointestinal Disorders: Chronic Constipation Musculoskeletal History of Musculoskeletal Dis: Yes (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, 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 IN SOFT TISSUE, L1-2 FX,) Musculoskeletal Disorders: Back Injury, Chronic Back Pain, Fractures Endocrine History of Endocrine Disorders: Yes Endocrine Disorders: Diabetes, Insulin dep HEENT History of HEENT Disorders: Yes HEENT Disorders: Glaucoma Hearing Impairment: Hard of Hearing Cancer History of Cancer: No Psychosocial History of Psychiatric Problem: Yes Behavioral Health Disorders: Anxiety Integumentary History of Skin or Integumenta: No Blood Transfusions History of Blood Disorders: No Family Medical History Family Medial History: Diabetes mellitus G8 BROTHER FH: skin cancer 19 FATHER Hypertension Physical Exam Vital Signs Vital Sign - Last 12Hours 07/14/17 07/14/17 08:24 11:37 Temp 98.8 Pulse 91 Resp 18 B/P (MAP) 191/67 Pulse Ox 94 O2 Delivery Room Air O2 Flow Rate 2.00 Capillary Refill : General Appearance: WD/WN, Moderate Distress, Obese HEENT: PERRL/EOMI, Normal ENT Inspection, Pharynx Normal Neck: Normal Inspection Respiratory: Lungs Clear, Normal Breath Sounds, No Accessory Muscle Use, No Respiratory Distress Cardiovascular: Regular Rate, Rhythm, No Edema, No Murmur, Normal Peripheral Pulses (strong right pedal pulse) Gastrointestinal: Normal Bowel Sounds, Non Tender, Soft Extremity: Normal Capillary Refill, Normal Range of Motion, Other (tenderness, ecchymosis, and warmth of the right upper medial thigh. Distal exam unremarkable. Catheter insertion site is well healing and free of inflammatory signs or symptoms.) Neurologic/Psychiatric: Alert, Oriented x3, No Motor/Sensory Deficits, weighter II- XII Norm as Tested, Other (very anxious) Skin: Normal Color, Warm/Dry, Ecchymosis Progress/Results/Core Measures Results/Orders Lab Results Laboratory Tests Test 07/14/17 08:05 07/14/17 09:35 07/14/17 20:47 Range/Units White Blood Count 8.1 4.3-11.0 10^3/uL Red Blood Count 2.78 L 4.35-5.85 10^6/uL Hemoglobin 8.4 L 11.5-16.0 G/DL Hematocrit 27 L 35-52 % Mean Corpuscular Volume 95 80-99 FL Mean Corpuscular Hemoglobin 30 25-34 PG Mean Corpuscular Hemoglobin Concent 32 32-36 G/DL Red Cell Distribution Width 13.7 10.0-14.5 % Platelet Count 245 130-400 10^3/uL Mean Platelet Volume 11.2 H 7.4-10.4 FL Neutrophils (%) (Auto) 76 H 42-75 % Lymphocytes (%) (Auto) 16 12-44 % Monocytes (%) (Auto) 6 0-12 % Eosinophils (%) (Auto) 2 0-10 % Basophils (%) (Auto) 0 0-10 % Neutrophils # (Auto) 6.1 1.8-7.8 X 10^3 Lymphocytes # (Auto) 1.3 1.0-4.0 X 10^3 Monocytes # (Auto) 0.5 0.0-1.0 X 10^3 Eosinophils # (Auto) 0.2 0.0-0.3 10^3/uL Basophils # (Auto) 0.0 0.0-0.1 10^3/uL Sodium Level 137 135-145 MMOL/L Potassium Level 5.4 H 3.6-5.0 MMOL/L Chloride Level 103 98-107 MMOL/L Carbon Dioxide Level 28 21-32 MMOL/L Anion Gap 6 5-14 MMOL/L Blood Urea Nitrogen 23 H 7-18 MG/DL Creatinine 1.09 0.60-1.30 MG/DL Estimat Glomerular Filtration Rate 51 BUN/Creatinine Ratio 21 Glucose Level 208 H 70-105 MG/DL Calcium Level 8.9 8.5-10.1 MG/DL Total Bilirubin 0.6 0.1-1.0 MG/DL Aspartate Amino Transf (AST/SGOT) 14 5-34 U/L Alanine Aminotransferase (ALT/SGPT) 13 0-55 U/L Alkaline Phosphatase 97 40-136 U/L C-Reactive Protein High Sensitivity 4.03 H 0.00-0.50 MG/DL Total Protein 7.1 6.4-8.2 GM/DL Albumin 3.6 3.2-4.5 GM/DL Urine Color YELLOW Urine Clarity CLEAR Urine pH 5 5-9 Urine Specific Aragon 1.010 L 1.016-1.022 Urine Protein 1+ H NEGATIVE Urine Glucose (UA) 3+ H NEGATIVE Urine Ketones NEGATIVE NEGATIVE Urine Nitrite NEGATIVE NEGATIVE Urine Bilirubin NEGATIVE NEGATIVE Urine Urobilinogen NORMAL NORMAL MG/DL Urine Leukocyte Esterase NEGATIVE NEGATIVE Urine RBC (Auto) NEGATIVE NEGATIVE Urine RBC NONE /HPF Urine WBC NONE /HPF Urine Squamous Epithelial Cells RARE /HPF Urine Crystals NONE /LPF Urine Bacteria NEGATIVE /HPF Urine Casts NONE /LPF Urine Mucus NEGATIVE /LPF Urine Culture Indicated NO Glucometer 206 H 70-110 MG/DL My Orders Orders - EDDA PATEL MD Cbc With Automated Diff (07/14/17 08:03) Comprehensive Metabolic Panel (07/14/17 08:03) Hs C Reactive Protein (07/14/17 08:03) Ua Culture If Indicated (07/14/17 08:03) Saline Lock/Iv-Start (07/14/17 08:03) Fentanyl Injection (Sublimaze Injection (07/14/17 08:15) Lorazepam Injection (Ativan Injection) (07/14/17 08:15) Us Right Low Ext [id number] (07/14/17 08:25) Us Venous Lower Ext Rt (07/14/17 08:25) Ns Iv 1000 Ml (Sodium Chloride 0.9%) (07/14/17 08:38) Fentanyl Injection (Sublimaze Injection (07/14/17 10:30) Ct Angio Ext Lower Right W (07/14/17 11:14) Iohexol Injection (Omnipaque 350 Mg/Ml 1 (07/14/17 11:45) Ns (Ivpb) (Sodium Chloride 0.9% Ivpb Bag (07/14/17 11:45) Medications Given in ED Current Medications Medications Dose Ordered Sig/Judi Route Start Time Stop Time Status Last Admin Dose Admin Fentanyl Citrate 75 mcg ONCE ONCE IVP 07/14/17 10:30 07/14/17 10:31 DC 07/14/17 10:47 75 MCG Vital Signs/I&O Vital Sign - Last 12Hours 07/14/17 07/14/17 07/14/17 07/14/17 11:35 11:37 16:00 19:00 Temp 98.3 Pulse 82 81 77 Resp 18 20 B/P (MAP) 164/72 Pulse Ox 94 93 O2 Delivery Room Air Nasal Cannula Room Air O2 Flow Rate 2.00 07/14/17 20:21 Temp 97.7 Pulse 76 Resp 20 B/P (MAP) 139/67 Pulse Ox 93 O2 Delivery Room Air Progress Note #1: Time: 08:45 Progress Note Patient was interviewed and examined. She was then treated with fentanyl and Ativan to calm her emotional state. Her right groin and thigh were then examined more thoroughly. She was found to have ecchymosis, tenderness, and warmth in the medial right upper thigh. The catheter insertion site appeared well healed and normal. She had a normal exam distally. There were strong pedal pulses. Sensation and range of motion in the foot were intact. Progress Note #2: Time: 10:41 Progress Note Case was reviewed with Dr. Luke who is uncertain of why the patient has expanding hematomas but believes this warrants admission for observation. He requests admission to the hospitalist service with consultation to him. He requests repeat ultrasound in the morning. I did clarify patient's medications. She no longer takes Plavix but does take aspirin. Patient was given a liter of IV fluids because her potassium was slightly elevated and she has history of acute renal injury on her last ER visit. Progress Note #3: Progress Note CT angiogram of the right lower extremity was added on just before admission at the request of Dr. Luke. Diagnostic Imaging Diagonstic Imaging: Ultrasound Plain Films/CT/US/NM/MRI: leg Comments NAME: TOSHA LEVINE [facility] REC#: [id number] PT STATUS: REG ER : 1955 PHYSICIAN: EDDA PATEL MD ADMIT DATE: 07/14/17/ER Signed Date of Exam: 07/14/17 US VENOUS LOWER EXT RT EXAMINATION: Right lower extremity duplex venous ultrasound. TECHNIQUE: DVT protocol. Multiple sonographic images with color Doppler and waveform interrogation were performed of the right lower extremity veins with compression and augmentation maneuvers. INDICATION: Right leg pain and. FINDINGS: The right lower extremity veins from the groin to below the knee veins were examined with normal color-flow, compressibility and normal waveform demonstrated. There is a hematoma seen within the muscular layer in the upper thigh, appears to be larger compared to 07/14/17 exam. IMPRESSION: No evidence of DVT in the right lower extremity. Right groin muscular layer hematoma. Dictated by: Dictated on workstation # [id number] Dict: 07/14/1746 Trans: 07/14/17952 Interpreted by: TARYN TODD MD Electronically signed by: TARYN TODD MD 07/14/17952 Diagonstic Imaging: Ultrasound Plain Films/CT/US/NM/MRI: leg Comments NAME: ANITA LEVINELEEN [facility] REC#: [id number] PT STATUS: REG ER : 1955 PHYSICIAN: EDDA PATEL MD ADMIT DATE: 07/14/17/ER Signed Date of Exam: 07/14/17 US RIGHT LOW EXT [id number] EXAMINATION: Arterial vascular duplex ultrasound of the right groin. INDICATION: Right groin pain. COMPARISON: 07/14/17. FINDINGS: The right common femoral artery is patent with triphasic waveforms. No pseudoaneurysm. The SFA is patent. There is a hematoma seen larger compared to the previous exam measuring 6.4 x 2.1 x 7 CM, probably within the muscular layer. There is also a collection measuring 5.6 x 5.1 x 1.1 cm adjacent to the great saphenous vein. IMPRESSION: No evidence of pseudoaneurysm. There is however larger hematoma in the right groin mostly within the intramuscular compartment. Dictated by: Dictated on workstation # [id number] Dict: 07/14/17 0954 Trans: 07/14/17 1016 Interpreted by: TARYN TODD MD Electronically signed by: TARYN TODD MD 07/14/17 1016 Departure Communication (Admissions) Time/Spoke to Admitting Phy: 10:[address] Herrera agrees to admission as requested by Dr. Luke. She will manage chronic conditions and Dr. Luke will address the hematomas. Time/Spoke to Consulting Phy: 10:35 Communication/Consulting Case reviewed by Dr. Luke who believes admission for observation, pain control , and repeat ultrasound tomorrow is the best approach. He requested admission to the hospital service due to her other chronic conditions. Impression Impression: Primary Impression: Postoperative hematoma Qualified Codes: I97.638 - Postprocedural hematoma of a circulatory system organ or structure following other circulatory system procedure Additional Impression: Leg pain Qualified Codes: M79.604 - Pain in right leg Disposition: ADMITTED INPATIENT Condition: Improved Admissions Decision to Admit Reason: Admit from ER (General) Decision to Admit/Date: Jul 14, 2017 Time/Decision to Admit Time: 10:35 Departure-Patient Inst. Referrals: MARIE LUNA DO (PCP/Family) Primary Care Physician EDDA PATEL MD Jul 14, 2017 08:53
[2017-07-14 09:44] LABS: BILIRUBIN,URINE NEGATIVE (NEGATIVE); KETONES,URINE NEGATIVE (NEGATIVE); LEUKOCYTE ESTERASE ,URINE NEGATIVE (NEGATIVE); NITRITE,URINE NEGATIVE (NEGATIVE); PH,URINE 5 (5-9); PROTEIN,URINE 1+ (NEGATIVE); UROBILINOGEN,URINE NORMAL (NORMAL)
[2017-07-14 09:51] LABS: SQUAMOUS EPITHELIAL CELL,UR RARE /HPF
--- NOTE | 2017-07-14 09:56 | Diagnostic Imaging Report ---
EXAMINATION: Right lower extremity duplex venous ultrasound. TECHNIQUE: DVT protocol. Multiple sonographic images with color Doppler and waveform interrogation were performed of the right lower extremity veins with compression and augmentation maneuvers. INDICATION: Right leg pain and. FINDINGS: The right lower extremity veins from the groin to below the knee veins were examined with normal color-flow, compressibility and normal waveform demonstrated. There is a hematoma seen within the muscular layer in the upper thigh, appears to be larger compared to 07/14/17 exam. IMPRESSION: No evidence of DVT in the right lower extremity. Right groin muscular layer hematoma. Dictated by: Dictated on workstation # [id number]
--- NOTE | 2017-07-14 10:07 | Diagnostic Imaging Report ---
EXAMINATION: Arterial vascular duplex ultrasound of the right groin. INDICATION: Right groin pain. COMPARISON: 07/14/17. FINDINGS: The right common femoral artery is patent with triphasic waveforms. No pseudoaneurysm. The SFA is patent. There is a hematoma seen larger compared to the previous exam measuring 6.4 x 2.1 x 7 CM, probably within the muscular layer. There is also a collection measuring 5.6 x 5.1 x 1.1 cm adjacent to the great saphenous vein. IMPRESSION: No evidence of pseudoaneurysm. There is however larger hematoma in the right groin mostly within the intramuscular compartment. Dictated by: Dictated on workstation # [id number]
--- NOTE | 2017-07-14 11:40 | History & Physical-Hospitalist ---
HPI History of Present Illness: HPI/Chief Complaint CC: Right groin and leg pain HPI: This is a 61 [address] pt of [address] Ayoub who presented to the ER for right groin and leg pain that has been persistent since catheterization angiography of the lower extremities on May 08 . She claims that the Hydrocodone and Oxycodone prescribed to the previously have not helped. Pt was crying and screaming when evaluated in the ER, labs and imaging were reviewed from previous ER visit on July 12 for acute kidney injury. Ultrasound was obtained for expanding hematoma. CRP 4, WBC normal, Afebriel. Pt has a history of DM and chronic pain. Dr. Kingsley Review: US was obtained for expanding hematoma, but this will need repeated tomorrow Pt states she only takes Aspirin for blood thinning Scribed by Lauren Ochoa under the direct supervision of Dr. 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) Alcohol Use: Denies Use Recreational Drug Use: No Smoking Status: Former Smoker Former Smoker, Quit: Jul 08, 2010 Type Used: Cigarettes 2nd Hand Smoke Exposure: No Recent Foreign Travel: No Contact w/other who traveled: No Recent Hopitalizations: Yes Recent Infectious Disease Expo: No Immunizations Up To Date Date of Pneumonia Vaccine: Jun 13, 2013 Date of Influenza Vaccine: May 27, 2017 Seasonal Allergies Seasonal Allergies: Yes Surgeries Yes (HYSTERECTOMY 1978, APPY 1959'S, GASTRIC BYPASS, BACK KYPHOPLASTY) Abdominal, Appendectomy, Hysterectomy, Vascular Surgery Respiratory Yes (USED TO HAVE HOME O2 PRN) Asthma Currently Using CPAP: No Currently Using BIPAP: No Cardiovascular Yes Hypertension, Peripheral Vascular Neurological Yes Stroke Reproductive System Hx Reproductive Disorders: No Sexually Transmitted Disease: No HIV/AIDS: No 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 Disorders: Denies Genitourinary Yes UTI-Chronic Gastrointestinal Yes (UMBILICAL HERNIA, OCCASIONAL CONSTIPATION--TAKES LACTULOSE, GASTRIC BYPASS) Chronic Constipation Musculoskeletal Yes (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, 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 IN SOFT TISSUE, L1-2 FX,) Back Injury, Chronic Back Pain, Fractures Endocrine History of Endocrine Disorders: Yes Endocrine Disorders: Diabetes, Insulin dep HEENT History of HEENT Disorders: Yes HEENT Disorders: Glaucoma Hearing Impairment: Hard of Hearing Cancer No Psychosocial History of Psychiatric Problem: Yes Behavioral Health Disorders: Anxiety Integumentary History of Skin or Integumenta: No Blood Transfusions History of Blood Disorders: No Family Medical History Family Hx: Diabetes mellitus G8 BROTHER FH: skin cancer 19 FATHER Hypertension Review of Systems Constitutional: see HPI EENTM: no symptoms reported Respiratory: no symptoms reported Cardiovascular: no symptoms reported Gastrointestinal: no symptoms reported Genitourinary: no symptoms reported Musculoskeletal: muscle pain (right groin) Skin: no symptoms reported Psychiatric/Neurological: No Symptoms Reported All Other Systems Reviewed Negative Unless Noted: Yes Physical Exam Physical Exam Vital Signs Vital Sign - Last 12Hours 07/14/17 08:24 Temp 98.8 Pulse 91 Resp 18 B/P (MAP) 191/67 Pulse Ox 94 O2 Delivery Room Air Capillary Refill : Less Than 3 Seconds General Appearance: WD/WN, Chronically ill, Mild Distress (due to pain), Obese Eyes: Bilateral Eye Normal Inspection, Bilateral Eye PERRL HEENT: PERRL/EOMI, Normal ENT Inspection, Pharynx Normal Neck: Full Range of Motion, Normal Inspection, Non Tender, Supple, Carotid Bruit Respiratory: Chest Non Tender, Lungs Clear, Normal Breath Sounds, No Accessory Muscle Use, No Respiratory Distress Cardiovascular: Regular Rate, Rhythm, No Edema, No Gallop, No JVD, No Murmur, Normal Peripheral Pulses Gastrointestinal: Normal Bowel Sounds, No Organomegaly, No Pulsatile Mass, Non Tender, Soft Back: Normal Inspection, No CVA Tenderness, No Vertebral Tenderness Extremity: Normal Capillary Refill, Normal Inspection, Normal Range of Motion, Non Tender, No Calf Tenderness, No Pedal Edema, Other (right groin pressure device intact) Neurologic/Psychiatric: Alert, Oriented x3, No Motor/Sensory Deficits, Normal Mood/Affect Skin: Normal Color, Warm/Dry Lymphatic: No Adenopathy Results Results/Procedures Lab Laboratory Tests 07/14/17 08:05 Assessment/Plan Admission Diagnosis Assessment: Expanding hematoma right groin likely slow bleed from PVD procedure 1 1/2 weeks ago DM Chronic pain Asthma Prior CVA PVD Assessment and Plan Plan: Dilaudid for pain Monitor hgb Reconciled home meds JESENIA Wick DO Jul 14, 2017 11:39
[2017-07-14] MEDS ORDERED: IOHEXOL 350 MG/ML 100 ML (OMNIPAQUE 350) VIAL IV ONE (11:45)
[2017-07-14] MEDS ORDERED: NS 100 ML (IVPB) BAG IV ONE (11:45)
[2017-07-14] MEDS ORDERED: fentaNYL INJECTION 100 MCG/2 ML AMP IV PRN (12:00)
[2017-07-14] MEDS ORDERED: oxyCODONE/APAP 10/325MG (PERCOCET 10) TABLET PO PRN (12:00)
[2017-07-14] MEDS ORDERED: CATHETER FLUSH 10 ML SYR IV PRN (12:15)
--- NOTE | 2017-07-14 13:24 | Consultation-Cardiology ---
HPI-Cardiology Cardiology Consultation: Date of Consultation 07/14/17 Date of Admission Attending Physician Jesenia Herrera DO Admitting Physician Huber Ayoub DO Consulting Physician Gema LUKE MD HPI: Time Seen by Provider: 12:00 Chief Complaint: Right groin pain This is a 61-year-old lady with history of morbid obesity, severe lumbar degenerative joint disease, diabetes, nonhealing ulcer left lower extremity, recent sepsis. During hospitalization of sepsis patient had an episode of chest pain and mildly positive troponin. Coronary angiography was performed which only showed mild coronary artery disease. Patient had nonhealing ulcer on the left lower extremity. Arterial ultrasound suggested moderate left SFA disease with likely posterior Tibial artery occlusion. Therefore, peripheral angiography was performed 6 days ago while right femoral approach. Peripheral angiography showed only mild to moderate left SFA disease with mild right popliteal disease. Patent vessels below the knee bilaterally. No intervention was required. Patient presented on Wednesday with complain of severe groin pain radiating from the back to the limb. She was admitted to the ER and ultrasound was performed which did not show any vascular complication. A small hematoma of 1.5 cm was noted. There was also no DVT. All of this imaging was of the right lower extremity. Patient was given pain medication in the ER and she became pain-free and was discharged from the ER. She presented again today in the ER with recurrent pain in the right groin area. Ultrasound showed increase in the hematoma size. Review of Systems-Cardiology Review of Systems Constitutional: No As described under HPI, No no symptoms reported, No chills, No fever, No lightheadedness, No malaise, No tiredness, No weight loss, No weight gain, No other Eyes: No As described under HPI, No no symptoms reported, No blindness, No blurred vision, No contact lenses, No drainage, No decreased acuity, No foreign body sensation, No glasses, No inflammation, No pain, No photophobia, No previous injury, No shadows, No tunnel vision, No other, No vision change Ears/Nose/Throat: No As described under HPI, No no symptoms reported, No chronic hearing loss, No epistaxis, No ear discharge, No ear pain, No loose teeth, No mouth pain, No mouth swelling, No nasal drainage, No nose pain, No recent hearing loss, No throat pain, No throat swelling, No ulcerations, No other Respiratory: No no symptoms reported, No As described under HPI, No cough, No orthopnea, No shortness of breath, No SOB with excertion, No SOB at rest, No stridor, No wheezing, No other Cardiovascular: No no symptoms reported, No As described under HPI, No chest pain, No edema, No irregular heart rate, No lightheadedness, No palpitations, No syncope, No other Gastrointestinal: No no symptoms reported, No As described under HPI, No abdomen distended, No abdominal pain, No blood streaked bowels, No constipation , No diarrhea, No difficulty swallowing, No nausea, No poor appetite, No poor fluid intake, No rectal bleeding, No vomiting, No other, No nausea/vomiting/ diarrhea, No stool coloration changes Genitourinary: No no symptoms reported, No As described under HPI, No burning, No dysuria, No discharge, No frequency, No flank pain, No hematuria, No incontinence, No pain, No urgency, No other, No urine frequency changes, No urine coloration changes Musculoskeletal: back pain, joint pain Skin: No no symptoms reported, No As described under HPI, No change in color, No change in hair/nails, No dryness, No lesions, No lumps, No rash, No other, No skin related problems, No ulcerations, No rash on exposed areas, No ulcerations on exposed areas Psychiatric/Neurological: No no symptoms reported, No As described under HPI, No anxiety, No depression, No emotional problems, No headache, No numbness, No pre-existing deficit, No seizure, No tingling, No tremors, No weakness, No other , No focal weakness, No syncope [id number]-[id number] Hx Patient Social History Alcohol Use: Denies Use Recreational Drug Use: No Smoking Status: Former Smoker Type Used: Cigarettes 2nd Hand Smoke Exposure: No Recent Foreign Travel: No Recent Infectious Disease Expo: No Hospitalization with Isolation: Denies Immunizations Up To Date Date of Pneumonia Vaccine: Jun 13, 2013 Date of Influenza Vaccine: May 27, 2017 Past Medical History PMH As described under Assessment. Family Medical History Family History: Diabetes mellitus G8 BROTHER FH: skin cancer 19 FATHER Hypertension Allergies and Home Medications Allergies Uncoded Allergies: TAPE (Allergy, Intermediate, 11/11/14) Home Medications Alprazolam 1 Mg Tablet, 1 MG PO EVERY 6-8 HOURS PRN for ANXIETY, (Reported) Amlodipine Besylate 5 Mg Tablet, 5 MG PO DAILY, (Reported) Aspirin 81 Mg Tablet.dr, 81 MG PO DAILY, (Reported) Atorvastatin Calcium 10 Mg Tablet, 10 MG PO DAILY for 90 Days, #90 Ref 3 Prescribed by: Gema LUKE on 07/08/17 1047 Diazepam 5 Mg Tablet, 5 MG PO Q12H PRN for MUSCLE SPASMS, (Reported) Diphenhydramine HCl 25 Mg Tablet, 25 MG PO Q12H PRN for ALLERGIES, (Reported) Gabapentin 600 Mg Tablet, 600 MG PO BID, (Reported) Hydrocodone/Acetaminophen 1 Each Tablet, 1 TAB PO Q6H PRN for PAIN-MODERATE, ( Reported) Insulin Aspart 100 Unit/1 Ml Susp, 4-15 UNITS SQ SLIDING/SCALE PRN for BS ABOVE 200, (Reported) Insulin Glargine,Hum.rec.anlog 100 Unit/1 Ml Vial, 80 UNITS SQ HS, (Reported) Levothyroxine Sodium 25 Mcg Tablet, 25 MCG PO DAILY, (Reported) Lidocaine HCl 76.5 Gm Cream..g., TP QID PRN for LEG PAIN, (Reported) Lisinopril 40 Mg Tablet, 40 MG PO DAILY, (Reported) Methyl Salicylate/Menthol 113 Gm Cream..g., TP QID PRN for LEG PAIN, (Reported) Multivitamins with Iron 1 Each Tablet, 1 TAB PO DAILY, (Reported) Oxycodone HCl 10 Mg Tablet, 10 MG PO Q6H PRN for PAIN-SEVERE, (Reported) Temazepam 15 Mg Capsule, 15 MG PO HS, (Reported) Physical Exam-Cardiology Physical Exam Vital Signs/I&O Vital Sign - Last 12Hours 07/14/17 08:24 Temp 98.8 Pulse 91 Resp 18 B/P (MAP) 191/67 Pulse Ox 94 O2 Delivery Room Air Capillary Refill : Less Than 3 Seconds Constitutional: No appears stated age, No AAO x 3, No apparent distress, No PERRL, No well-developed, No well-nourished, No other HEENT: No PERRL, No normal ENT inspection, No TMs normal, No pharynx normal, No scleral icterus (R), No scleral icterus (L), No pale conjunctivae (R), No pale conjunctivae (L), No photophobia, No TM abnormal (R), No TM abnormal (L), No pharyngeal erythema, No tonsillar exudate, No other, No discharge, No EOMI, No hearing is well preserved, No hard of hearing, No oral hygience is good, No ulceration, No xanthelasmas are seen Neck: No non-tender, No full range of motion, No supple, No normal inspection, No carotid bruit, No limited range of motion, No lymphadenopathy (R), No lymphadenopathy (L), No tender lateral, No tender midline, No thyromegaly, No other, No carotid pulses are 2 + bilaterally, No with good upstrokes Respiratory: No accessory muscle use, No respiratory distress, No chest tender , No chest expansion is symmetric, No chest is bilaterally symmetric, No lungs clear to percussion, No lungs clear to auscultation, No crackles, No rhonchi, No rales, No stridor, No wheezing, No pleural rub, No other Cardiovascular: No regular rate-rhythm, No irregularly irregular, No extra beats, No parasternal heave is noted, No JVD, No edema, No bradycardia, No tachycardia, No point of maximal impulse, No cardiac thrills are palpable, No S1 and S2, No gallop/S3, No gallop/S4, No diastolic murmur, No systolic murmur, No friction rub, No click, No other Gastrointestinal: No tender, No soft, No round, No distended, No pulsatile mass , No organomegaly, No guarding, No rebound, No tenderness, No hernia, No mass, No audible bowel sounds, No abnormal bowel sounds, No abdominal bruits, No spleenomegaly, No other Rectal: deferred Extremities: normal range of motion, normal capillary refill, no lower extremity edema bilateral Neurologic/Psychiatric: No dispatcher motor vehicle II-XII nml as tested, No no motor/sensory deficits, No alert, No normal mood/affect, No oriented x 3, No abnormal cerebellar tests, No abnormal dispatcher motor vehicle II-XII, No abnormal gait, No aphasia, No EOM palsy, No facial droop, No motor weakness, No sensory deficit, No depressed affect, No disoriented x 3, No other, No grossly intact, No power is 5/5 both on sides Skin: No normal color, No warm/dry, No cyanosis, No cool, No diaphoresis, No damp, No ecchymosis, No jaundice, No mottled, No pallor, No rash, No tattoos/ piercings, No ulcerations, No rash on exposed areas, No ulcerations on exposed areas, No other Data Review Labs Laboratory Tests 07/14/17 08:05: White Blood Count 8.1, Red Blood Count 2.78L, Hemoglobin 8.4L, Hematocrit 27L, Mean Corpuscular Volume 95, Mean Corpuscular Hemoglobin 30, Mean Corpuscular Hemoglobin Concent 32, Red Cell Distribution Width 13.7, Platelet Count 245, Mean Platelet Volume 11.2H, Neutrophils (%) (Auto) 76H, Lymphocytes (%) (Auto) 16, Monocytes (%) (Auto) 6, Eosinophils (%) (Auto) 2, Basophils (%) (Auto) 0, Neutrophils # (Auto) 6.1, Lymphocytes # (Auto) 1.3, Monocytes # (Auto) 0.5, Eosinophils # (Auto) 0.2, Basophils # (Auto) 0.0, Sodium Level 137, Potassium Level 5.4H, Chloride Level 103, Carbon Dioxide Level 28, Anion Gap 6, Blood Urea Nitrogen 23H, Creatinine 1.09, Estimat Glomerular Filtration Rate 51, BUN/ Creatinine Ratio 21, Glucose Level 208H, Calcium Level 8.9, Total Bilirubin 0.6 , Aspartate Amino Transf (AST/SGOT) 14, Alanine Aminotransferase (ALT/SGPT) 13, Alkaline Phosphatase 97, C-Reactive Protein High Sensitivity 4.03H, Total Protein 7.1, Albumin 3.6 07/14/17 09:35: Urine Color YELLOW, Urine Clarity CLEAR, Urine pH 5, Urine Specific [place] 1.010L, Urine Protein 1+H, Urine Glucose (UA) 3+H, Urine Ketones NEGATIVE, Urine Nitrite NEGATIVE, Urine Bilirubin NEGATIVE, Urine Urobilinogen NORMAL, Urine Leukocyte Esterase NEGATIVE, Urine RBC (Auto) NEGATIVE, Urine RBC NONE, Urine WBC NONE, Urine Squamous Epithelial Cells RARE, Urine Crystals NONE, Urine Bacteria NEGATIVE, Urine Casts NONE, Urine Mucus NEGATIVE, Urine Culture Indicated NO A/P-Cardiology Assessment/Admission Diagnosis Right groin hematoma, Mild CAD, Mild PAD, Anemia, Severe lumbar degenerative disease. Plan Ultrasound done today shows increased size of right groin hematoma. Aspirin and Plavix were discontinued. CTA of the right groin will be performed. Ultrasound did not show any vascular complication and specifically ruled out AV fistula or pseudoaneurysm. The likely explanation is slow oozing from a small branch. We will apply FemoStop for 2-3 hours today. Good pain control will be done. Anemia: She might require a blood transfusion. Chronic kidney disease: Continue to follow. Degenerative joint disease lumbar vertebrae: Continue pain medications. Spoke at length to the patient. Thank you for your consultation. Please call me if you have any questions. Adriana Luke MD, FACP, FACC, FSCAI, FHRS, CCDS Interventional Cardiology Cardiac Electrophysiology Vascular Medicine and Endovascular Interventions Gema LUKE MD Jul 14, 2017 1:24 pm
[2017-07-14] MEDS: HYDROmorphone (DILAUDID) 2 MG/ML VIAL IVP PRN (14:35)
[2017-07-14] MEDS: NS IV 1000 ML 1,000 ML IV SCH ×2 (14:36→20:10)
[2017-07-14] MEDS ORDERED: ATOR10TA PO (14:38)
[2017-07-14] MEDS ORDERED: ALBU18HF2 INH (14:43)
[2017-07-14 16:00] VITALS: BP 164/72
--- NOTE | 2017-07-14 16:15 | Diagnostic Imaging Report ---
EXAMINATION: CT angiogram of the right lower extremity with coronal and sagittal MIP technique reconstructions performed. INDICATION: Right thigh swelling. 100 mL of Omnipaque 350 is administered intravenously. FINDINGS: The right common femoral artery demonstrates mild plaque. There is a short course of the common femoral artery with a relatively high bifurcation. The profunda femoris is patent. The origin of the SFA demonstrates plaque with estimated 40% stenosis. The SFA demonstrates multifocal mild to moderate plaque and stenosis with no focal high-grade stenosis identified. The popliteal artery demonstrates also diffuse mild disease. The infrapopliteal vessels are not included on this exam focused over the thigh region. There is a small hematoma around the proximal SFA and involving the adductor muscles. There is also subcutaneous hematoma seen along the medial aspect of the thigh superficial to the muscle and adjacent to the greater saphenous vein. This measures 5.7 x 7 x 2.2 cm. No arterial extravasation or pseudoaneurysm is identified. There is no early enhancement of the veins demonstrated to suggest an AV fistula. There is note made of dilated superficial veins in the thigh that eventually drain into the great saphenous vein compatible with varicose veins. The great saphenous vein itself is only slightly dilated measuring up to 9 mm in its upper aspect. IMPRESSION: 1. There is a small to moderate sized hematoma along the subcutaneous tissues in the anterior medial aspect of the right thigh. This is adjacent to the great saphenous vein and varicose veins are noted in the thigh. 2. No pseudoaneurysm. Expected mild hematoma around the proximal SFA after procedure is seen. There is also suggestion of mild intramuscular hematoma in the proximal left adductor muscles. Dictated by: Dictated on workstation # [id number]
[2017-07-14] MEDS ORDERED: ACETAMINOPHEN 500 MG TAB (TYLENOL) PO PRN (18:00)
[2017-07-14] MEDS ORDERED: IBUPROFEN TABLET 200 MG TAB PO PRN (18:00)
[2017-07-14] MEDS ORDERED: LACTULOSE SYRUP 10GM/15ML (ENULOSE) 30ML UDC PO PRN (18:00)
[2017-07-14] MEDS ORDERED: DIAZEPAM 5 MG (VALIUM) TABLET PO PRN (18:00)
[2017-07-14] MEDS ORDERED: diphenhydrAMINE 25 MG TAB (BENADRYL) PO PRN (18:00)
[2017-07-14] MEDS ORDERED: RT-ALBUTEROL SULF 2.5 MG/3 ML PRE-MIX VIAL IH PRN (18:15)
[2017-07-14 20:21] VITALS: BP 139/67
[2017-07-14] MEDS: GABAPENTIN 600 MG (NEURONTIN) TAB PO SCH (21:28)
[2017-07-14] MEDS: ONDANSETRON 4 MG/2 ML (SDV) Z0FRAN IVP PRN (21:29)
[2017-07-14] MEDS: ATORVASTATIN 10 MG (LIPITOR) TABLET PO SCH (21:29)
[2017-07-14] MEDS: inSUlin DETERMIR 1 UNIT/0.01 ML (LEVEMIR) CHARGE PER UNIT SQ SCH (21:31)
[2017-07-14] MEDS: inSUlin ASPART (NovoLOG) 1 UNIT/0.01 ML (CHARGE PER UNIT) SC SCH (21:31)
[2017-07-14] MEDS: TEMAZEPAM 15 MG (RESTORIL) CAP PO SCH (22:10)
[2017-07-15] VITALS: BP 112/66
[2017-07-15] MEDS: HYDROcodone/APAP 10 MG/325 MG (LORTAB) TAB PO PRN ×3 (02:47→23:47)
[2017-07-15] MEDS: ONDANSETRON 4 MG/2 ML (SDV) Z0FRAN IVP PRN ×3 (02:55→23:47)
[2017-07-15 04:00] VITALS: BP 142/82
[2017-07-15] MEDS: NS IV 1000 ML 1,000 ML IV SCH ×3 (04:02→20:07)
[2017-07-15] MEDS: MULTIVIT W/MINERALS TAB (THERAGRAN M) PO SCH (05:42)
[2017-07-15] MEDS: LEVOTHYROXINE 25 MCG (LEVOTHROID) TAB PO SCH (05:42)
[2017-07-15] MEDS: inSUlin ASPART (NovoLOG) 1 UNIT/0.01 ML (CHARGE PER UNIT) SC SCH ×4 (05:43→21:26)
[2017-07-15 06:11] LABS: BASOPHILS % (AUTO) 0 % (0-10); EOSINOPHILS # (AUTO) 0.3 10^3/uL (0.0-0.3); EOSINOPHILS % (AUTO) 3 % (0-10); LYMPHOCYTES # (AUTO) 2.1 X 10^3 (1.0-4.0); LYMPHOCYTES % (AUTO) 24 % (12-44); MEAN CORPUSCULAR HEMOGLOBIN 30 PG (25-34); MEAN CORPUSCULAR HGB CONC 32 G/DL (32-36); MEAN CORPUSCULAR VOLUME 95 FL (80-99); MEAN PLATELET VOLUME 11.8 FL (7.4-10.4); MONOCYTES # (AUTO) 0.7 X 10^3 (0.0-1.0); MONOCYTES % (AUTO) 8 % (0-12); NEUTROPHILS # (AUTO) 5.7 X 10^3 (1.8-7.8); NEUTROPHILS % (AUTO) 64 % (42-75); PLATELET COUNT 254 10^3/uL (130-400); RED BLOOD COUNT 2.61 10^6/uL (4.35-5.85); RED CELL DISTRIBUTION WIDTH 13.5 % (10.0-14.5); WHITE BLOOD COUNT 8.9 10^3/uL (4.3-11.0)
[2017-07-15 06:20] LABS: ALBUMIN 3.1 GM/DL (3.2-4.5); BILIRUBIN,TOTAL 0.6 MG/DL (0.1-1.0); CALCIUM 8.6 MG/DL (8.5-10.1); CREATININE SERUM 0.96 MG/DL (0.60-1.30); TOTAL PROTEIN 6.5 GM/DL (6.4-8.2)
[2017-07-15] MEDS: amLODIPine 5 MG (NORVASC) TAB PO SCH (08:30)
[2017-07-15] MEDS: GABAPENTIN 600 MG (NEURONTIN) TAB PO SCH ×2 (08:30→20:27)
[2017-07-15] MEDS: lisINopril 20 MG (ZESTRIL) TAB PO SCH (08:30)
[2017-07-15] MEDS: ASPIRIN E.C. 81 MG (ECOTRIN) TAB PO SCH (08:32)
[2017-07-15 08:34] VITALS: BP 120/56
[2017-07-15] MEDS ORDERED: IRON SUCROSE INJECTION 200 MG in NS (IVPB) 100 ML IV SCH (08:45)
[2017-07-15] MEDS: HYDROmorphone (DILAUDID) 2 MG/ML VIAL IVP PRN ×3 (09:01→18:59)
[2017-07-15] MEDS ORDERED: MILK OF MAGNESIA 400 MG/5 ML 30 ML UDC PO NR (09:30)
--- NOTE | 2017-07-15 10:20 | Progress Note-Hospitalist ---
Progress Note HPI/CC on Admission CC: Right groin and leg pain HPI: This is a 61 [address] of [address] Ayoub who presented to the ER for right groin and leg pain that has been persistent since catheterization angiography of the lower extremities on May 08 . She claims that the Hydrocodone and Oxycodone prescribed to the previously have not helped. Pt was crying and screaming when evaluated in the ER, labs and imaging were reviewed from previous ER visit on July 12 for acute kidney injury. Ultrasound was obtained for expanding hematoma. CRP 4, WBC normal, Afebriel. Pt has a history of DM and chronic pain. Dr. Kingsley Review: US was obtained for expanding hematoma, but this will need repeated tomorrow Pt states she only takes Aspirin for blood thinning Scribed by Lauren Ochoa under the direct supervision of Dr. 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 Hgb level was discussed and IV iron was discussed. Pt confirms having transfusions before. 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 Pt would like milk of magnesia and states that this usually works for her Physical exam stable. Lungs sound perfect. AFVSS, Pleasant, O x 3, NAD, much improved from yesterday RRR, CTAB No edema, sensation intact right leg and nl ROM Laboratory Tests 07/15/17 05:30 Assessment: Expanding hematoma right groin likely slow bleed from PVD procedure 1 1/2 weeks ago DM Chronic pain Asthma Prior CVA PVD Anemia due to acute blood loss Constipation Plan: Dilaudid for pain Monitor hgb Reconciled home meds Accuchecks Venofer iron infusions Milk of magnesia Dispo per Cardiology Scribed by Lauren Ochoa under the direct supervision of Dr. Tellez. LAURA TELLEZ DO Jul 15, 2017 10:20
--- NOTE | 2017-07-15 10:30 | Diagnostic Imaging Report ---
EXAM: Right lower extremity arterial duplex ultrasound. INDICATION: Right groin hematoma. FINDINGS: There is atherosclerotic plaque seen on grayscale images in the femoropopliteal segments. There is normal triphasic waveforms seen throughout the right lower extremity. Velocities are in the range of 109 to 181 cm/second throughout the right lower extremity with color Doppler demonstrating patency of all the major arteries from the common femoral to the dorsalis pedis and posterior tibial arteries bilaterally. IMPRESSION: There is atherosclerotic plaque seen in the femoropopliteal segments with no evidence of arterial occlusion or high-grade stenosis in the right lower extremity. Dictated by: Dictated on workstation # [id number]
[2017-07-15] MEDS ORDERED: LORazepam INJ 2 MG/ML (ATIVAN) VIAL IVP PRN (12:00)
[2017-07-15 13:57] VITALS: BP 147/64
--- NOTE | 2017-07-15 14:34 | Diagnostic Imaging Report ---
PROCEDURE: MRI lumbar spine. TECHNIQUE: Multiplanar, multisequence MRI of the lumbar spine was performed without contrast. INDICATION: Severe back pain. COMPARISON: 10/29/2011. FINDINGS: There is an old compression fracture involving the L1 vertebral body with 20% vertebral body height loss and suggestion of prior kyphoplasty performed. There is no acute compression fracture. The bone marrow signal demonstrates no suspicious lesion. The disc heights are preserved. There is disc desiccation at all lumbar spine levels. The cauda equina and conus medullaris appear grossly unremarkable. T12/L1: There is no disc herniation. The old fracture results in mild retropulsion of the upper posterior aspect of L1 vertebral body into the spinal canal with no significant spinal canal stenosis, however. The foramina demonstrate mild narrowing on the right side from facet arthropathy and no significant narrowing on the left. L1/2: There is a mild disc bulge and incr-xm-uoglysfv facet hypertrophy. No central canal or lateral recess stenosis. The foramina are patent. L2/3: There is a mild disc bulge and bilateral moderate facet arthropathy, worse on the right side. No central canal, lateral recess, or foraminal stenosis. L3/4: There is no disc herniation. There is pjdwsdaq-tv-ycjfqk facet hypertrophy. No central canal stenosis. The lateral recess and the foramina are patent. L4/5: There is no disc herniation. The facet joints demonstrate severe arthropathy, particularly on the right side. No central canal stenosis. The left lateral recess demonstrates mupo-jt-[id number] narrowing. The right lateral recess is patent. The foramina demonstrate bilateral moderate stenosis abutting the exiting L4 nerve roots, slightly more prominent on the left. L5/S1: There is a right paracentral disc protrusion with osteophyte formation seen. No central canal stenosis. The facet joints demonstrate gfth-il-toitqxvu hypertrophy. The right lateral recess demonstrates moderate stenosis abutting the descending right S1 nerve root. The left lateral recess is patent. The foramina demonstrate dgcdvjqg-[id number] stenosis on the left and no significant stenosis on the right side. IMPRESSION: Degenerative facet changes, most prominent in the mid to lower lumbar spine and right paracentral disc protrusion with posterior osteophytes at L5/S1. There is moderate right lateral recess stenosis at L5/S1 and foraminal stenosis, most prominent on the left side at L4/5 and L5/S1 as described. Dictated by: Dictated on workstation # [id number]
--- NOTE | 2017-07-15 14:42 | Diagnostic Imaging Report ---
Right groin ultrasound INDICATION: Followup hematoma. COMPARISON: 07/14/17. FINDINGS: There is a superficial hematoma in the medial aspect of the right upper thigh measuring 7.5 x 1.2 x 3.2 CM, without significant change from the previous with prior measurements of 6.4 x 2.1 x 7 CM. More superiorly and anteriorly there is a hypoechoic area this appears to be within the upper quadriceps muscle group measuring 12 x 3 x 8.2 CM compared to 5.6 x 5.1 x 1.1 cm. This probably relates to an intramuscular hematoma or muscle bruise and appears to be involving an area larger compared to previous exam. The common femoral vein is patent. The great saphenous vein appears to be patent. The medial superficial hematoma is abutting the great saphenous vein. IMPRESSION: 1. Enlargement of hypoechoic lesion within the anterior upper quadriceps femoris probably related to an intramuscular hematoma or bruise. 2. No significant change in the anterior medial subcutaneous fat hematoma abutting the great saphenous vein. Dictated by: Dictated on workstation # [id number]
--- NOTE | 2017-07-15 15:00 | Physical Therapy Evaluation ---
PT Evaluation-General Medical Diagnosis Admission Date Jul 14, 2017 at 10:43 Medical Diagnosis: Hematoma R groin area Onset Date: Jul 14, 2017 Therapy Diagnosis Therapy Diagnosis: R LE pain Height/Weight Height (Feet): 5 Height (Inches): 7.00 Weight (Pounds): 276 Weight (Ounces): 0.0 Precautions Precautions/Isolations: Fall Prevention, Standard Precautions Weight Bear Status Right Lower Extremity: Right Weight Bearing/Tolerated Left Lower Extremity: Left Weight Bearing/Tolerated Referral Reason for Referral: Evaluation/Treatment Medical History Pertinent Medical History: DM, HTN, PVD Additional Medical History Asthma, appendectomy, hysterectomy, Stroke, UTI-Chronic, anxiety Reviewed History: Yes Social History Home: Single Level Current Living Status: Alone Patient has caregivers that visit throughout the day. Prior/Core FIM Prior Level of Function Functional Mobile Measure 0=Not Assessed/NA 4=Minimal Assistance 1=Total Assistance 5=Supervision or Setup 2=Maximal Assistance 6=Modified Mobile 3=Moderate Assistance 7=Complete Mobile Bed Mobility: 7 Transfers (B,C,W/C) (FIM): 7 Gait: 6 Locomotion: 6 Patient states she uses a single point cane for ambulation PT Evaluation-Current Subjective Patient states she is only able to do anything because she is on pain medication. She reports pain in R proximal LE. She agrees to PT. Pain Numeric Pain Scale: 5-Moderate Pain Location: Right Location Body Site: Thigh Pt/Family Goals Patient wishes to return home with less pain. Objective Patient Orientation: Normal For Age Problem Solving: Good ROM/Strength ROM Upper Extremities WNL ROM Lower Extremities WNL Strength Lower Extremities Not tested due to pain in R LE Integumentary/Posture Bowel Incontinence: No Bladder Incontinence: Wilson Cath Neuromuscular (Tone, Coordination, Reflexes) Normal Sensory Vision: Wears Glasses Hearing: Functional Sensation Right Upper Extremit: Intact Sensation Left Upper Extremity: Intact Sensation Right Lower Extremit: Intact Sensation Left Lower Extremity: Intact Transfers Functional Mobile Measure 0=Not Assessed/NA 4=Minimal Assistance 1=Total Assistance 5=Supervision or Setup 2=Maximal Assistance 6=Modified Mobile 3=Moderate Assistance 7=Complete Mobile Transfers (B, C, W/C) (FIM): 6 Scootin Rollin Supine to/from Sit: 6 Sit to/from Stand: 6 Patient is mod I with transfers. Gait Mode of Locomotion: Walk Anticipated Mode of Locomotion: Walk Gait (FIM): 6 Distance: 160' Gait Level of Assist: 6 Gait Assistive Device: FWW Comments/Gait Description Patient ambulates safely with FWW. Only limitation is the pain throughout R LE. Balance Sitting Static: Normal Sitting Dynamic: Normal Standing Static: Normal Standing Dynamic: Normal Assessment/Needs Patient is experiencing pain in R LE due to a hematoma on proximal thigh. She has good tolerance for gait and therapeutic intervention. PT will progress per her pain tolerance. Rehab Potential: Fair PT Halfway Goals Halfway Goals PT Halfway Goals Time Frame: Jul 22, 2017 Transfers (B,C,W/C) (FIM): 7 Gait (FIM): 6 Distance: >300' Gait Level of Assist: 6 Gait Assistive Device: FWW PT Plan Problem List Problem List: Activity Tolerance, Functional Strength, Safety, Balance, Gait, Transfer Treatment/Plan Treatment Plan: Continue Plan of Care Treatment Plan: Education, Functional Activity Nikko, Functional Strength, Gait , Safety, Therapeutic Exercise Treatment Duration: Jul 22, 2017 Frequency: 6 times per week Estimated Hrs Per Day: .25 hour per day Patient and/or Family Agrees t: Yes Safety Risks/Education Patient Education: Gait Training, Reviewed Precautions, Safety Issues Teaching Recipient: Patient Teaching Methods: Demonstration, Discussion Response to Teaching: Verbalize Understanding, Return Demonstration Discharge Recommendations Therapy D/C Recommendations: Home w/ Family Support Equpiment Recommendations-D/C: Straight Cane, Front Wheeled Walker Time/GCodes Time In: 1430 Time Out: 1455 Total Billed Treatment Time: 25 Total Billed Treatment 1 visit EVL 25 min G Codes Necessary: Yes PT/OT Therapy GCodes Therapy Functional Limitation: Physical Therapy Functional Limitation-Current Charge Code: MOBCUR Modifier: CI Functional Limitation-Goal Charge Code: MOBGOAL Modifier: ANTOLIN GILMAN PT Jul 15, 2017 15:00
[2017-07-15 15:30] VITALS: BP 100/44
--- NOTE | 2017-07-15 16:15 | Cardiology Progress Note ---
Cardiology SOAP Progress Note Subjective: significantly improved pain in the right lower extremity. Objective: I&O/Vital Signs Vital Sign - Last 12Hours 07/15/17 07/15/17 07/15/17 07/15/17 07:15 08:34 09:00 13:57 Temp 98.6 98.9 Pulse 89 88 78 Resp 22 22 B/P (MAP) 120/56 147/64 Pulse Ox 90 93 91 O2 Delivery Room Air Room Air Room Air 07/15/17 15:30 Temp 98.9 Pulse 81 Resp 20 B/P (MAP) 100/44 Pulse Ox 94 O2 Delivery Room Air Intake and Output 07/16/17 00:00 Intake Total 1030 ml Output Total 550 ml Balance 480 ml Weight (Pounds): 276 Weight (Ounces): 0.0 Weight (Calculated Kilograms): 125.343485 Constitutional: No appears stated age, No AAO x 3, No apparent distress, No PERRL, No well-developed, No well-nourished, No other Respiratory: No accessory muscle use, No respiratory distress, No chest tender , No chest expansion is symmetric, No chest is bilaterally symmetric, No lungs clear to percussion, No lungs clear to auscultation, No crackles, No rhonchi, No rales, No stridor, No wheezing, No pleural rub, No other Cardiovascular: No regular rate-rhythm, No irregularly irregular, No extra beats, No parasternal heave is noted, No JVD, No edema, No bradycardia, No tachycardia, No point of maximal impulse, No cardiac thrills are palpable, No S1 and S2, No gallop/S3, No gallop/S4, No diastolic murmur, No systolic murmur, No friction rub, No click, No other Gastrointestional: No tender, No soft, No round, No distended, No pulsatile mass, No organomegaly, No guarding, No rebound, No tenderness, No hernia, No mass, No audible bowel sounds, No abnormal bowel sounds, No abdominal bruits, No spleenomegaly, No other Extremities: normal range of motion, normal capillary refill, no lower extremity edema bilateral Neurologic/Psychiatric: No poultry killer II-XII nml as tested, No no motor/sensory deficits, No alert, No normal mood/affect, No oriented x 3, No abnormal cerebellar tests, No abnormal poultry killer II-XII, No abnormal gait, No aphasia, No EOM palsy, No facial droop, No motor weakness, No sensory deficit, No depressed affect, No disoriented x 3, No other, No grossly intact, No power is 5/5 both on sides Skin: No normal color, No warm/dry, No cyanosis, No cool, No diaphoresis, No damp, No ecchymosis, No jaundice, No mottled, No pallor, No rash, No tattoos/ piercings, No ulcerations, No rash on exposed areas, No ulcerations on exposed areas, No other Results/Procedures: Labs Laboratory Tests 07/14/17 20:47: Glucometer 206H 07/15/17 05:30: Glucometer 101, White Blood Count 8.9, Red Blood Count 2.61L, Hemoglobin 7.9L, Hematocrit 25L, Mean Corpuscular Volume 95, Mean Corpuscular Hemoglobin 30, Mean Corpuscular Hemoglobin Concent 32, Red Cell Distribution Width 13.5, Platelet Count 254, Mean Platelet Volume 11.8H, Neutrophils (%) (Auto) 64, Lymphocytes (%) (Auto) 24, Monocytes (%) (Auto) 8, Eosinophils (%) (Auto) 3, Basophils (%) (Auto) 0, Neutrophils # (Auto) 5.7, Lymphocytes # (Auto) 2.1, Monocytes # (Auto) 0.7, Eosinophils # (Auto) 0.3, Basophils # (Auto) 0.0, Sodium Level 138, Potassium Level 5.0, Chloride Level 104, Carbon Dioxide Level 27, Anion Gap 7, Blood Urea Nitrogen 18, Creatinine 0.96, Estimat Glomerular Filtration Rate 59, BUN/Creatinine Ratio 19, Glucose Level 103, Calcium Level 8.6, Total Bilirubin 0.6, Aspartate Amino Transf (AST/SGOT) 11, Alanine Aminotransferase (ALT/SGPT) 9, Alkaline Phosphatase 87, Total Protein 6.5, Albumin 3.1L 07/15/17 10:59: Glucometer 157H A/P: Assessment/Dx: Right groin hematoma, Mild CAD, Mild PAD, Anemia, Severe lumbar degenerative disease. Plan: right groin hematoma: Soft, with no worsening of bruising at the site of access. 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 No pseudoaneurysm no fistula. Likely intramuscular hematoma which will resolve in due time. hematocrit stable. Aspirin and Plavix was discontinued. I will recommend elevating the right lower extremity and compression wrapping. The patient did not tolerate FemoStop for longer than 2 hours. Continue good pain control. Anemia: stable hematocrit Chronic kidney disease: Continue to follow. Degenerative joint disease lumbar vertebrae: Continue pain medications. MRI done today. Physical therapy on board. May require pain specialist opinion. Spoke at length to the patient; she is very comfortable now and tells me that she is improving significantly. Thank you for your consultation. Please call me if you have any questions. Adriana Luke MD, FACP, FACC, FSCAI, FHRS, CCDS Interventional Cardiology Cardiac Electrophysiology Vascular Medicine and Endovascular Interventions Gema LUKE MD Jul 15, 2017 4:15 pm
[2017-07-15 20:11] VITALS: BP 96/46
[2017-07-15] MEDS: ATORVASTATIN 10 MG (LIPITOR) TABLET PO SCH (20:27)
[2017-07-15] MEDS: TEMAZEPAM 15 MG (RESTORIL) CAP PO SCH (20:27)
[2017-07-15] MEDS: inSUlin DETERMIR 1 UNIT/0.01 ML (LEVEMIR) CHARGE PER UNIT SQ SCH (21:26)
[2017-07-15] MEDS: ALPRAZolam 1 MG (XANAX) TAB PO PRN (23:47)
[2017-07-16] VITALS: BP 114/56
[2017-07-16 04:48] VITALS: BP 99/52
[2017-07-16] MEDS: NS IV 1000 ML 1,000 ML IV SCH (04:52)
[2017-07-16] MEDS: inSUlin ASPART (NovoLOG) 1 UNIT/0.01 ML (CHARGE PER UNIT) SC SCH ×2 (05:20→11:03)
[2017-07-16 05:53] LABS: BASOPHILS % (AUTO) 1 % (0-10); EOSINOPHILS # (AUTO) 0.3 10^3/uL (0.0-0.3); EOSINOPHILS % (AUTO) 4 % (0-10); LYMPHOCYTES # (AUTO) 2.3 X 10^3 (1.0-4.0); LYMPHOCYTES % (AUTO) 27 % (12-44); MEAN CORPUSCULAR HEMOGLOBIN 29 PG (25-34); MEAN CORPUSCULAR HGB CONC 30 G/DL (32-36); MEAN CORPUSCULAR VOLUME 98 FL (80-99); MEAN PLATELET VOLUME 11.7 FL (7.4-10.4); MONOCYTES # (AUTO) 0.9 X 10^3 (0.0-1.0); MONOCYTES % (AUTO) 10 % (0-12); NEUTROPHILS # (AUTO) 5.1 X 10^3 (1.8-7.8); NEUTROPHILS % (AUTO) 59 % (42-75); PLATELET COUNT 258 10^3/uL (130-400); RED BLOOD COUNT 2.53 10^6/uL (4.35-5.85); RED CELL DISTRIBUTION WIDTH 14.1 % (10.0-14.5); WHITE BLOOD COUNT 8.6 10^3/uL (4.3-11.0)
[2017-07-16] MEDS: ALPRAZolam 1 MG (XANAX) TAB PO PRN (06:10)
[2017-07-16] MEDS: LEVOTHYROXINE 25 MCG (LEVOTHROID) TAB PO SCH (06:10)
[2017-07-16] MEDS: MULTIVIT W/MINERALS TAB (THERAGRAN M) PO SCH (06:10)
[2017-07-16 06:16] LABS: BILIRUBIN,TOTAL 0.6 MG/DL (0.1-1.0); CALCIUM 8.4 MG/DL (8.5-10.1); CREATININE SERUM 1.22 MG/DL (0.60-1.30); POTASSIUM 5.2 MMOL/L (3.6-5.0); TOTAL PROTEIN 6.2 GM/DL (6.4-8.2)
[2017-07-16] MEDS: GABAPENTIN 600 MG (NEURONTIN) TAB PO SCH (08:24)
[2017-07-16] MEDS: amLODIPine 5 MG (NORVASC) TAB PO SCH (08:24)
[2017-07-16] MEDS: ASPIRIN E.C. 81 MG (ECOTRIN) TAB PO SCH (08:24)
[2017-07-16] MEDS: lisINopril 20 MG (ZESTRIL) TAB PO SCH (08:24)
[2017-07-16 08:46] VITALS: BP 139/80
--- NOTE | 2017-07-16 10:05 | Consultation ---
History of Present Illness History of Present Illness Patient Consulted On(savanna/time) 07/16/17 10:00 Date Seen by Provider: Jul 16, 2017 Time Seen by Provider: 07:00 History of Present Illness Very pleasant 61 y/o female that presents with CC of persistent Right groin/ thigh pain subsequent to undergoing a heart cath approximately one month ago according to the patient. She states that the pain is constant and increases with weight bearing on the RLE. She denies numbness/tingling/paresthesias; also denies subjective weakness; also denies bowel/bladder dysfunction/saddle anesthesia. She also c/o chronic axial LBP that increases with prolonged standing/walking. She has no other neuromuscular/musculoskeletal complaints. She denies f/c/ns or other constitutional symptoms. Allergies and Home Medications Allergies Uncoded Allergies: TAPE (Allergy, Intermediate, 11/11/14) Home Medications Albuterol Sulfate 18 Gm Hfa.aer.ad, 2 PUFF INH Q4H PRN for SHORTNESS OF BREATH, (Reported) Alprazolam 1 Mg Tablet, 1 MG PO QID PRN for ANXIETY, (Reported) Amlodipine Besylate 5 Mg Tablet, 5 MG PO DAILY, (Reported) Aspirin 81 Mg Tablet.dr, 81 MG PO DAILY, (Reported) Atorvastatin Calcium 10 Mg Tablet, 10 MG PO DAILY, (Reported) Diazepam 5 Mg Tablet, 5 MG PO Q12H PRN for MUSCLE SPASMS, (Reported) Diphenhydramine HCl 25 Mg Tablet, 25 MG PO Q12H PRN for ALLERGIES, (Reported) Gabapentin 600 Mg Tablet, 600 MG PO BID, (Reported) Hydrocodone/Acetaminophen 1 Each Tablet, 1 TAB PO Q6H PRN for PAIN-MODERATE, ( Reported) Insulin Aspart 100 Unit/1 Ml Susp, 4-15 UNITS SQ SLIDING/SCALE PRN for BS ABOVE 200, (Reported) Insulin Glargine,Hum.rec.anlog 100 Unit/1 Ml Vial, 80 UNITS SQ HS, (Reported) Levothyroxine Sodium 25 Mcg Tablet, 25 MCG PO DAILY, (Reported) Lidocaine HCl 76.5 Gm Cream..g., TP QID PRN for LEG PAIN, (Reported) Lisinopril 40 Mg Tablet, 40 MG PO DAILY, (Reported) Methyl Salicylate/Menthol 113 Gm Cream..g., TP QID PRN for LEG PAIN, (Reported) Multivitamins with Iron 1 Each Tablet, 1 TAB PO DAILY, (Reported) Oxycodone HCl 10 Mg Tablet, 10 MG PO Q6H PRN for PAIN-SEVERE, (Reported) Temazepam 15 Mg Capsule, 15 MG PO HS, (Reported) Past Mftario-Excqzc-Cntkia Hx Patient Social History Alcohol Use: Denies Use Recreational Drug Use: No Smoking Status: Former Smoker Type Used: Cigarettes Former Smoker, Quit: Jul 14, 2011 2nd Hand Smoke Exposure: No Recent Foreign Travel: No Contact w/Someone Who Travel: No Recent Infectious Disease Expo: No Recent Hopitalizations: Yes Physical Abuse: No Sexual Abuse: No Immunizations Up To Date Date of Pneumonia Vaccine: Jul 14, 2012 Date of Influenza Vaccine: May 12, 2017 Seasonal Allergies Seasonal Allergies: Yes Surgeries History of Surgeries: Yes (HYSTERECTOMY 1978, APPY S, GASTRIC BYPASS, BACK KYPHOPLASTY) Surgeries: Abdominal, Appendectomy, Hysterectomy, Vascular Surgery Respiratory History of Respiratory Disorde: Yes (USED TO HAVE HOME O2 PRN) Currently Using CPAP: No Currently Using BIPAP: No Cardiovascular History of Cardiac Disorders: Yes Cardiac Disorders: Hypertension, Peripheral Vascular Neurological History of Neurological Disord: Yes Neurological Disorders: Stroke Reproductive System Hx Reproductive Disorders: No Sexually Transmitted Disease: No HIV/AIDS: No 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 Disorders: Denies Genitourinary History of Genitourinary Disor: Yes Genitourinary Disorders: UTI-Chronic Gastrointestinal History of Gastrointestinal Di: Yes (UMBILICAL HERNIA, OCCASIONAL CONSTIPATION- -TAKES LACTULOSE, GASTRIC BYPASS) Gastrointestinal Disorders: Chronic Constipation Musculoskeletal History of Musculoskeletal Dis: Yes (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, 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 IN SOFT TISSUE, L1-2 FX,) Musculoskeletal Disorders: Back Injury, Chronic Back Pain, Fractures Endocrine History of Endocrine Disorders: Yes Endocrine Disorders: Diabetes, Insulin dep HEENT History of HEENT Disorders: Yes HEENT Disorders: Glaucoma Hearing Impairment: Hard of Hearing Cancer History of Cancer: No Psychosocial History of Psychiatric Problem: Yes Behavioral Health Disorders: Anxiety Suicide Risk Score: 0 Integumentary History of Skin or Integumenta: No Blood Transfusions History of Blood Disorders: No Family Medical History Family Medial History: Diabetes mellitus G8 BROTHER FH: skin cancer 19 FATHER Hypertension Review of Systems-General Constitutional: no symptoms reported EENTM: no symptoms reported Respiratory: no symptoms reported Cardiovascular: no symptoms reported Gastrointestinal: no symptoms reported : No Musculoskeletal: other (Right hip/thigh pain) Psychiatric/Neurological: No Symptoms Reported All Other Systems Reviewed Negative Unless Noted: Yes Physical Exam-General Problems Physical Exam Vital Signs Vital Sign - Last 12Hours 07/14/17 07/14/17 08:24 11:37 Temp 98.8 Pulse 91 Resp 18 B/P (MAP) 191/67 Pulse Ox 94 O2 Delivery Room Air O2 Flow Rate 2.00 Capillary Refill : Less Than 3 Seconds General Appearance: no apparent distress, obese Eyes: Bilateral Eye PERRL, Bilateral Eye EOMI HEENT: PERRL/EOMI Neck: non-tender, full range of motion Respiratory: no respiratory distress, no accessory muscle use Cardiovascular: normal peripheral pulses Peripheral Pulses: 2+ Dorsalis Pedis (R), 2+ Left Dors-Pedis (L) Gastrointestinal: non tender, soft Back: normal inspection, no CVA tenderness, other (Normal painles ROM) Extremities: normal range of motion, no calf tenderness, normal capillary refill, other (Motor/sensation grossly intact bilateral UEs/LEs, both feet well perfused) Reflexes: 2+ Bicep (R), 2+ Bicep (L), 2+ Tricep (R), 2+ Tricep (L), 2+ Knee (R) , 2+ Knee (L), 2+ Ankle (R), 2+ Ankle (L) Skin: warm/dry, ecchymosis (Ecchymosis groin/anterior and medial thigh) Assessment/Plan Assessment/Plan Admission Diagnosis/Plan 61 y/o female with CC of persistent Right groin/thigh pain. Pt also with h/o chronic axial LBP, no h/o radiculopathy or neurogenic claudication. MRI of the L-spine relatively benign; demonstrates mild spondylosis/DDD most significant at L5-S1; also mild-moderate foraminal stenosis at L5-S1 primarily on the Left, small disc buldge creating mild impingement on the traversing S1 nerve root on the Right. Imaging studies/PE do not correlate with spinal origin for the patient's symptoms. Symptoms likely primarily result of post-cath hematoma; clinical exam inconsistent with expanding hematoma or active bleed. Some consideration could be given to possible OA of the Right hip joint; perhaps pelvic XR indicated. Recommend PT/OT for mobilization and pain control. Clinical Quality Measures DVT/VTE Risk/Contraindication: Risk Factor Score Per Nursin RFS Level Per Nursing on Admit: 4+=Very High JACOBO DUENAS DO Jul 16, 2017 10:05
--- NOTE | 2017-07-16 10:35 | Cardiology Progress Note ---
Cardiology SOAP Progress Note Subjective: Significantly improved pain. Only mild discomfort in right thigh. Objective: I&O/Vital Signs Vital Sign - Last 12Hours 07/16/17 07/16/17 07/16/17 07/16/17 00:00 01:00 04:48 07:00 Temp 98.6 97.8 Pulse 68 74 66 61 Resp 19 16 B/P (MAP) 114/56 99/52 Pulse Ox 90 92 O2 Delivery Room Air Room Air 07/16/17 07/16/17 08:46 08:51 Temp 97.5 Pulse 86 Resp 22 B/P (MAP) 139/80 Pulse Ox 90 93 O2 Delivery Room Air Room Air Weight (Pounds): 276 Weight (Ounces): 0.0 Weight (Calculated Kilograms): 125.487171 Constitutional: No appears stated age, No AAO x 3, No apparent distress, No PERRL, No well-developed, No well-nourished, No other Respiratory: No accessory muscle use, No respiratory distress, No chest tender , No chest expansion is symmetric, No chest is bilaterally symmetric, No lungs clear to percussion, No lungs clear to auscultation, No crackles, No rhonchi, No rales, No stridor, No wheezing, No pleural rub, No other Cardiovascular: No regular rate-rhythm, No irregularly irregular, No extra beats, No parasternal heave is noted, No JVD, No edema, No bradycardia, No tachycardia, No point of maximal impulse, No cardiac thrills are palpable, No S1 and S2, No gallop/S3, No gallop/S4, No diastolic murmur, No systolic murmur, No friction rub, No click, No other Gastrointestional: No tender, No soft, No round, No distended, No pulsatile mass, No organomegaly, No guarding, No rebound, No tenderness, No hernia, No mass, No audible bowel sounds, No abnormal bowel sounds, No abdominal bruits, No spleenomegaly, No other Extremities: normal range of motion, normal capillary refill, no lower extremity edema bilateral Neurologic/Psychiatric: No dairy processing equipment operator II-XII nml as tested, No no motor/sensory deficits, No alert, No normal mood/affect, No oriented x 3, No abnormal cerebellar tests, No abnormal dairy processing equipment operator II-XII, No abnormal gait, No aphasia, No EOM palsy, No facial droop, No motor weakness, No sensory deficit, No depressed affect, No disoriented x 3, No other, No grossly intact, No power is 5/5 both on sides Skin: No normal color, No warm/dry, No cyanosis, No cool, No diaphoresis, No damp, No ecchymosis, No jaundice, No mottled, No pallor, No rash, No tattoos/ piercings, No ulcerations, No rash on exposed areas, No ulcerations on exposed areas, No other Results/Procedures: Labs Laboratory Tests 07/15/17 10:59: Glucometer 157H 07/15/17 16:21: Glucometer 266H 07/15/17 21:05: Glucometer 201H 07/16/17 05:08: White Blood Count 8.6, Red Blood Count 2.53L, Hemoglobin 7.4L, Hematocrit 25L, Mean Corpuscular Volume 98, Mean Corpuscular Hemoglobin 29, Mean Corpuscular Hemoglobin Concent 30L, Red Cell Distribution Width 14.1, Platelet Count 258, Mean Platelet Volume 11.7H, Neutrophils (%) (Auto) 59, Lymphocytes (%) (Auto) 27 , Monocytes (%) (Auto) 10, Eosinophils (%) (Auto) 4, Basophils (%) (Auto) 1, Neutrophils # (Auto) 5.1, Lymphocytes # (Auto) 2.3, Monocytes # (Auto) 0.9, Eosinophils # (Auto) 0.3, Basophils # (Auto) 0.0, Sodium Level 140, Potassium Level 5.2H, Chloride Level 105, Carbon Dioxide Level 29, Anion Gap 6, Blood Urea Nitrogen 21H, Creatinine 1.22, Estimat Glomerular Filtration Rate 45, BUN/ Creatinine Ratio 17, Glucose Level 84, Calcium Level 8.4L, Total Bilirubin 0.6, Aspartate Amino Transf (AST/SGOT) 10, Alanine Aminotransferase (ALT/SGPT) 9, Alkaline Phosphatase 79, Total Protein 6.2L, Albumin 3.0L 07/16/17 05:14: Glucometer 84 A/P: Assessment/Dx: Right groin hematoma, Mild CAD, Mild PAD, Anemia, Severe lumbar degenerative disease. Plan: right groin hematoma: Soft, with no worsening of bruising at the site of access. 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 No pseudoaneurysm no fistula. Likely intramuscular hematoma which will resolve in due time. hematocrit stable. Aspirin and Plavix was discontinued. I will recommend elevating the right lower extremity and compression wrapping. The patient did not tolerate FemoStop for longer than 2 hours. Continue good pain control. Anemia: stable hematocrit Chronic kidney disease: Continue to follow. Degenerative joint disease lumbar vertebrae: Continue pain medications. MRI done today. Physical therapy on board. May require pain specialist opinion. Spoke at length to the patient; she is very comfortable now and tells me that she is improving significantly. Okay to discharge per cardiology. No routine follow-up with us required. Thank you for your consultation. Please call me if you have any questions. Adriana Luke MD, FACP, FACC, FSCAI, FHRS, CCDS Interventional Cardiology Cardiac Electrophysiology Vascular Medicine and Endovascular Interventions Gema LUKE MD Jul 16, 2017 10:35
[2017-07-16] MEDS ORDERED: OXYC10TA7 PO (10:46)
[2017-07-16] MEDS ORDERED: HYDR-3820 PO (10:46)
--- NOTE | 2017-07-16 10:57 | Discharge Summary-Hospitalist ---
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 Hgb level was discussed and IV iron was discussed. Pt confirms having transfusions before. 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 Pt would like milk of magnesia and states that this usually works for her Physical exam stable. Lungs sound perfect. AFVSS, Pleasant, O x 3, NAD, much improved from yesterday RRR, CTAB No edema, sensation intact right leg and nl ROM Laboratory Tests 07/15/17 05:30 Assessment: Expanding hematoma right groin likely slow bleed from PVD procedure 1 1/2 weeks ago DM Chronic pain Asthma Prior CVA PVD Anemia due to acute blood loss Constipation Plan: Dilaudid for pain Monitor hgb Reconciled home meds Accuchecks Venofer iron infusions Milk of magnesia Dispo per Cardiology Scribed by Lauren Ochoa under the direct supervision of Dr. Tellez. Discharge Summary Discharge Physical Examination Allergies: Uncoded Allergies: TAPE (Allergy, Intermediate, 11/11/14) Vitals & I&Os Vital Signs Date Time Temp Pulse Resp B/P (MAP) Pulse Ox O2 Delivery O2 Flow Rate FiO2 07/16/17 08:51 93 Room Air 07/16/17 08:46 97.5 86 22 139/80 07/15/17 04:00 1.00 Hospital Course Notes from 07/16/17 Dr. Dusty Elias Review: Dr. 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 Elias Pt has been ambulating Patient Interview: Pt states she has seen Dr. Elias this am. I discussed his, with her Pt confirms that Dr. Ayoub typically refill her pain meds. Pt is unsure if she has any pain meds at home because she had been taking more due to the pain she was having. I discussed which pain medications she would prefer and how her insurance could cover it Pt was advised to obtain a follow up with Dr. Ayoub before her next appointment on 08/04 and pt states that when they tried to schedule without much prior notice, they seemed to busy. Pt states Dr. Luke would like the pt to see a kidney doctor, even though Dr. Ayoub had not recommended it. Pt asked about the process of recovery and wondered what she should do if she does not recover. Pt was advised to stay patient during her recovery AFVSS, Pleasant, o x 3 Plan: Pain meds written prescription Close follow up with Dr. Ayoub Follow up with Dr. Dusty Elias Obtain appointment with Nephrology Scribed by Lauren Ochoa under the direct supervision of Dr. Tellez. Hospital course: patient had a very lengthy hospital course and observation status due to admission for presumed expanding right inguinal hematoma following a vascular procedure performed by Dr. Luke a week and a half before a sodium that was a slow bleed from capillary flow. Ultrasound evaluated hematoma and that was closely followed after compression treatment but that appeared to not be the cause of the severity of her pain requiring Dilaudid in addition to her chronic pain medication of oxycodone and hydrocodone so other sources were pursued MRI of the lumbar spine was obtained then spine surgeon Dr. Dusty Elias was consulted and found the back not to be the source but degeneration and protruding disc noted and will need follow-up as an outpatient if that is needing to be managed surgically. Hemoglobin was monitored closely that did essentially decreased slightly to 7.4 did give her dose of IV iron but she will need close follow-up with Dr. Ayoub since she has a history of needing transfusions. Overall she was doing well pain was controlled and she was deemed stable for discharge with close follow-up with Dr. Ayoub. Labs (last 24 hrs) Laboratory Tests 07/15/17 16:21: Glucometer 266H 07/15/17 21:05: Glucometer 201H 07/16/17 05:08: White Blood Count 8.6, Red Blood Count 2.53L, Hemoglobin 7.4L, Hematocrit 25L, Mean Corpuscular Volume 98, Mean Corpuscular Hemoglobin 29, Mean Corpuscular Hemoglobin Concent 30L, Red Cell Distribution Width 14.1, Platelet Count 258, Mean Platelet Volume 11.7H, Neutrophils (%) (Auto) 59, Lymphocytes (%) (Auto) 27 , Monocytes (%) (Auto) 10, Eosinophils (%) (Auto) 4, Basophils (%) (Auto) 1, Neutrophils # (Auto) 5.1, Lymphocytes # (Auto) 2.3, Monocytes # (Auto) 0.9, Eosinophils # (Auto) 0.3, Basophils # (Auto) 0.0, Sodium Level 140, Potassium Level 5.2H, Chloride Level 105, Carbon Dioxide Level 29, Anion Gap 6, Blood Urea Nitrogen 21H, Creatinine 1.22, Estimat Glomerular Filtration Rate 45, BUN/ Creatinine Ratio 17, Glucose Level 84, Calcium Level 8.4L, Total Bilirubin 0.6, Aspartate Amino Transf (AST/SGOT) 10, Alanine Aminotransferase (ALT/SGPT) 9, Alkaline Phosphatase 79, Total Protein 6.2L, Albumin 3.0L 07/16/17 05:14: Glucometer 84 Pending Labs Laboratory Tests 07/16/17 05:08: White Blood Count 8.6, Red Blood Count 2.53, Hemoglobin 7.4, Hematocrit 25, Mean Corpuscular Volume 98, Mean Corpuscular Hemoglobin 29, Mean Corpuscular Hemoglobin Concent 30, Red Cell Distribution Width 14.1, Platelet Count 258, Mean Platelet Volume 11.7, Neutrophils (%) (Auto) 59, Lymphocytes (%) (Auto) 27 , Monocytes (%) (Auto) 10, Eosinophils (%) (Auto) 4, Basophils (%) (Auto) 1, Neutrophils # (Auto) 5.1, Lymphocytes # (Auto) 2.3, Monocytes # (Auto) 0.9, Eosinophils # (Auto) 0.3, Basophils # (Auto) 0.0, Sodium Level 140, Potassium Level 5.2, Chloride Level 105, Carbon Dioxide Level 29, Anion Gap 6, Blood Urea Nitrogen 21, Creatinine 1.22, Estimat Glomerular Filtration Rate 45, BUN/ Creatinine Ratio 17, Glucose Level 84, Calcium Level 8.4, Total Bilirubin 0.6, Aspartate Amino Transf (AST/SGOT) 10, Alanine Aminotransferase (ALT/SGPT) 9, Alkaline Phosphatase 79, Total Protein 6.2, Albumin 3.0 07/16/17 05:14: Glucometer 84 Discharge Home Medications: Active Scripts Active Hydrocodon-Acetaminophn 10-325 (Hydrocodone/Acetaminophen) 1 Each Tablet 1 Tab PO Q4H PRN Oxycodone HCl 10 Mg Tablet 10 Mg PO Q4H PRN Reported Ventolin Hfa (Albuterol Sulfate) 18 Gm Hfa.aer.ad 2 Puff INH Q4H PRN Lipitor (Atorvastatin Calcium) 10 Mg Tablet 10 Mg PO DAILY Daily Vitamin + Iron (Multivitamins with Iron) 1 Each Tablet 1 Tab PO DAILY Aspirin EC (Aspirin) 81 Mg Tablet.dr 81 Mg PO DAILY Amlodipine Besylate 5 Mg Tablet 5 Mg PO DAILY Lisinopril 40 Mg Tablet 40 Mg PO DAILY Diphenhydramine HCl 25 Mg Tablet 25 Mg PO Q12H PRN Muscle Rub Cream (Methyl Salicylate/Menthol) 113 Gm Cream..g. TP QID PRN Aspercreme (Lidocaine HCl) 76.5 Gm Cream..g. TP QID PRN Alprazolam 1 Mg Tablet 1 Mg PO QID PRN Gabapentin 600 Mg Tablet 600 Mg PO BID Levothyroxine Sodium 25 Mcg Tablet 25 Mcg PO DAILY Temazepam 15 Mg Capsule 15 Mg PO HS Novolog (Insulin Aspart) 100 Unit/1 Ml Susp 4-15 Units SQ SLIDING/SCALE PRN Lantus (Insulin Glargine,Hum.rec.anlog) 100 Unit/1 Ml Vial 80 Units SQ HS Diazepam 5 Mg Tablet 5 Mg PO Q12H PRN Instructions to patient/family Please see electronic discharge instructions given to patient. Clinical Quality Measures DVT/VTE Risk/Contraindication: Risk Factor Score Per Nursin RFS Level Per Nursing on Admit: 4+=Very High LAURA TELLEZ DO Jul 16, 2017 10:56
[2017-07-16] MEDS: HYDROmorphone (DILAUDID) 2 MG/ML VIAL IVP PRN (11:03)
--- NOTE | 2017-07-16 11:17 | D/C HH Face to Face Order ---
D/C Face to Face Orders Instructions for Patient Patient Instructions/FollowUp: Obtain close f/u with Dr Ayoub Physician to follow Patient: Dr Alejandro Ayoub Discharge Diet for Home: ADA Diet, Cardiac Diet Patient Problems: Right inguinal hematoma resolving Severe right sided back pain Right Quadriceps hematoma Patient Data-Allergies,Ht & Wt Patient Allergies: Uncoded Allergies: TAPE (Allergy, Intermediate, 11/11/14) Height (Feet): 5 Height (Inches): 7.00 Weight (Pounds): 276 Weight (Ounces): 0.0 Home Health Need/Face to Face Date of Face to Face: Jul 16, 2017 Clinical Findings: Generalized weakness and fatigue, Muscle weakness, Unsteady gait I have seen Pt [id number]: Yes Discharged To: Home Diagnosis/Conditions: Right inguinal hematoma resolving Severe right sided back pain Right Quadriceps hematoma Problems/Diagnosis/Condition: Patient is Homebound due to: Zachayr fall risk due to instabilty, Pain w/ ambulation Homebound Status Due to the above stated illness, injury or surgical procedure (medical condition or diagnosis) and associated clinical findings, the patient is homebound because of his/her inability to leave home except with aid of a supportive device and/or person AND leaving the home requires a considerable and taxing effort or is medically contraindicated. Pt req the following assistanc: [facility] Therapy Line Start Date: Jul 14, 2017 Line Start Time: 0805 Line Type: Saline Lock Site Location: Hand Certify Stmt I certify that this patient is under my care and that I, a nurse practitioner or a physician; a after school program assistant working with me, had a face to face encounter that - meets the physician face to face encounter requirements with this patient as dated. LAURA TELLEZ DO Jul 16, 2017 11:17
--- NOTE | 2017-07-16 11:43 | Physical Therapy Daily Note ---
PT Daily Note-Current Subjective Patient is laying in bed upon PT entering the room. She asks for some pain medicine in her IV before she gets up and walks. Pain Numeric Pain Scale: 9 Location: Right Location Body Site: Thigh Appearance Patient appears healthy. She is left post tx seated with call light in reach. Mental Status Patient Orientation: Normal For Age Attachments: Wilson Catheter Transfers Functional [place] Measure 0=Not Assessed/NA 4=Minimal Assistance 1=Total Assistance 5=Supervision or Setup 2=Maximal Assistance 6=Modified [place] 3=Moderate Assistance 7=Complete IndependenceIRFPAI Quality Coding Scale 6 Independent with activity with or without an assistive device 5 Patient requires set up or clean up by helper. Patient completes activity by themselves 4 Supervision or touching assist (CGA). [place] provide cues , steadying assist 3 The helper provides less than half the effort to complete the activity 2 The helper provides more than half the effort to complete the activity 1 Dependent. The helper does all the effort to complete an activity 7 Patient refused to complete or attempt activity 9 The patient did not perform the activity before the current illness or injury 88 Not attempted due to Medical conditions or safety concerns Transfers (B, C, W/C) (FIM): 7 Scootin Rollin Supine to/from Sit: 7 Sit to/from Stand: 7 Patient performs transfers independently. Weight Bearing Right Lower Extremity: Right Weight Bearing/Tolerated Left Lower Extremity: Left Weight Bearing/Tolerated Gait Training Gait (FIM): 6 Distance: 250' Gait Level of Assist: 6 Gait Assistive Device: FWW Patient ambulates safely with FWW. Assessment Current Status: Good Progress Patient states she is leaving in a few hours today. She requests home health PT and nursing. She is functional only limited by current pain in proximal R LE. PT Steam Station Supervisor Goals Alf Goals PT Steam Station Supervisor Goals Time Frame: Jul 22, 2017 Transfers (B,C,W/C) (FIM): 7 Gait (FIM): 6 Distance: >300' Gait Level of Assist: 6 Gait Assistive Device: FWW PT Plan Problem List Problem List: Activity Tolerance, Functional Strength, Safety, Balance, Gait, Transfer Treatment/Plan Treatment Plan: Discontinue PT, goals met Treatment Plan: Education, Functional Activity [place], Functional Strength, Gait , Safety, Therapeutic Exercise Treatment Duration: Jul 22, 2017 Frequency: 6 times per week Estimated Hrs Per Day: .25 hour per day Patient and/or Family Agrees t: Yes Safety Risks/Education Patient Education: Gait Training, Safety Issues Teaching Methods: Demonstration, Discussion Response to Teaching: Verbalize Understanding, Return Demonstration Discharge Recommendations Therapy D/C Recommendations: Home Independently Equpiment Recommendations-D/C: Front Wheeled Walker Time/GCodes Time In: 1055 Time Out: 1113 Total Billed Treatment Time: 18 Total Billed Treatment 1 visit GT 18 min PT/OT Therapy GCodes Therapy Functional Limitation: Physical Therapy Functional Limitation-Current Charge Code: MOBCUR Modifier: CI Functional Limitation-Goal Charge Code: MOBGOAL Modifier: CH Functional Limitation-D/C Charge Codes: MOBDC Modifier: CH ANTOLIN BRADFORD PT Jul 16, 2017 11:43
[2017-07-16 12:23] VITALS: BP 139/80
--- NOTE | 2017-07-16 13:11 | Occ Therapy Progress Note ---
Therapy Progress Note [id number] Pt seen in room, up in bed. Pty indicated that she was being discharged after lunch and did not want OT now but she would like OT help at home. She has caregivers at home for 40 hours a week but needs to be independent for the other times. Pt's request for home health taken to Dr Herrera , who approved it. Pt would benefit from home health OT evaluation and possible services. DC OT visit CAROLE HEREDIA OT Jul 16, 2017 13:11
== END 2017-07-16 10:46 | disposition home health service (06) ==
LOC: EDUNIT# 07:42 → ER 07:44 → UNDOADMOB 10:43 → 4TH 10:43
PROVIDERS: ADMIT Internal Medicine; ATTEND Internal Medicine
DX: I97.638 Postprocedural hematoma of a circulatory system organ or structure following other circulatory system procedure (principal); D64.9 Anemia, unspecified; I73.9 Peripheral vascular disease, unspecified; E11.622 Type 2 diabetes mellitus with other skin ulcer; L97.329 Non-pressure chronic ulcer of left ankle with unspecified severity; I10 Essential (primary) hypertension; J45.909 Unspecified asthma, uncomplicated; M47.816 Spondylosis without myelopathy or radiculopathy, lumbar region; Z79.899 Other long term (current) drug therapy; Z87.891 Personal history of nicotine dependence
CPT/HCPCS: 36415; 72148; 73706; 76881; 80053; 81000; 82962; 83540; 85025; 86141; 93926; G0378

== ENCOUNTER → 2017-12-11 | Outpatient (CLI) | payer MEDICARE, MEDICAID ==
[~2017-12-11] MED LIST changes: +ALBU18HF2 INH
--- NOTE | 2017-12-11 12:43 | Diagnostic Imaging Report ---
PROCEDURE: MRI lumbar spine. TECHNIQUE: Multiplanar, multisequence MRI of the lumbar spine was performed without contrast. DATE: 12/11/2017. COMPARISON: 07/15/2017. INDICATION: A 62-year-old female, chronic low back pain. FINDINGS: There is low signal in the L1 vertebral body compatible with kyphoplasty material. There is concavity of the superior endplate of L1 with slight retropulsion of the posterior superior aspect of the L1 vertebral body beyond the expected posterior vertebral body margin by approximately 2.8 mm. There is no associated spinal stenosis. There is no acute compression fracture. There is no evidence of marrow infiltrating or replacing process. Additional alignment of the lumbar spine is unremarkable. The visualized cord and conus medullaris is unremarkable and terminates at the L1 level. There is mild disc height loss at L5-S1. L1-L2: There is minimal diffuse disc bulge with a small left paracentral disc protrusion. There is no identified nerve root contact. The facet joints and ligamentum flavum are unremarkable. There is prominence of the posterior epidural fat. There is no foraminal narrowing. There is no spinal canal stenosis. L2-L3: There is minimal diffuse disc bulge. There are mild bilateral facet degenerative changes without pronounced ligamentum flavum hypertrophy. There is prominence of the posterior epidural fat. There is no foraminal narrowing. There is no spinal canal stenosis. L3-L4: There is no disc bulge. There are mild bilateral facet degenerative changes without pronounced ligamentum flavum hypertrophy. There is no foraminal narrowing. There is no spinal canal stenosis. L4-L5: There is no disc bulge. There are moderate bilateral facet degenerative changes with mild ligamentum flavum hypertrophy. There is mild bilateral foraminal narrowing. There is no spinal canal stenosis. L5-S1: There is a right paracentral disc protrusion which nears but does not definitely displace the descending right S1 nerve root. There are mild bilateral facet degenerative changes. There is mild left foraminal narrowing. There is no spinal canal stenosis. IMPRESSION: 1. L5-S1 right paracentral disc protrusion which nears the descending right S1 nerve root although it does not definitely displace the nerve root. This is essentially unchanged since comparison exam. There is mild left foraminal narrowing at this level. 2. Additional disc and facet degenerative changes of the lumbar spine as described level by level above. 3. No new compression fracture. Kyphoplasty changes of L1. Dictated by: Dictated on workstation # [id number]
== END ==
LOC: RAD 10:40
PROVIDERS: ATTEND Internal Medicine
DX: M48.07 Spinal stenosis, lumbosacral region (principal); T14.90XA Injury, unspecified, initial encounter; M51.37 Other intervertebral disc degeneration, lumbosacral region; M51.27 Other intervertebral disc displacement, lumbosacral region; M47.817 Spondylosis without myelopathy or radiculopathy, lumbosacral region; Z98.890 Other specified postprocedural states
CPT/HCPCS: 72148

== ENCOUNTER → 2018-02-02 | Outpatient (CLI) | payer MEDICARE, MEDICAID ==
--- NOTE | 2018-02-02 12:37 | Diagnostic Imaging Report ---
PROCEDURE: MR imaging of the brain without contrast. TECHNIQUE: Multiplanar, multisequence MR imaging of the brain was performed without contrast. INDICATION: Disequilibrium, tremors, history of CVA 10 years ago. There are no previous MRI examinations available for comparison. The CT head exam of 01/08/2007 failed to show any sign of an acute intracranial abnormality or of a mass lesion. On this study there is no mass, shift of midline or hemorrhage to indicate an acute abnormality. There is no abnormal signal arising from the brain on the diffusion series to indicate an area of acute ischemia either. The ventricles are not abnormally dilated and similar in size to the prior CT head exam. There is mild cortical atrophy present. The degree of atrophy is somewhat greater than noted on the prior exam but the degree of atrophy is not unusual for a patient of this age. There are small areas of increased signal in periventricular white matter bilaterally. These findings are nonspecific but may be related to encephalization from microvascular ischemia. The sella is not enlarged and expected carotid flow voids are evident bilaterally. The sinuses are generally clear. The orbits are symmetrical and within normal limits. The 7th and 8th nerve complexes are unremarkable. IMPRESSION: 1. There is no evidence for an acute intracranial abnormality. There is no sign of a mass lesion either. 2. There are mild senescent changes involving the brain. Dictated by: Dictated on workstation # [id number]
== END ==
LOC: RAD 10:08
PROVIDERS: ATTEND Internal Medicine
DX: G93.9 Disorder of brain, unspecified (principal); E87.8 Other disorders of electrolyte and fluid balance, not elsewhere classified; R25.1 Tremor, unspecified; Z86.73 Personal history of transient ischemic attack (TIA), and cerebral infarction without residual deficits
CPT/HCPCS: 70551

== ENCOUNTER → 2018-02-02 | Outpatient (CLI) | payer MEDICARE, MEDICAID ==
--- NOTE | 2018-02-02 12:26 | Diagnostic Imaging Report ---
PROCEDURE: MR imaging cervical spine without contrast. TECHNIQUE: Multiplanar, multisequence MR imaging of the cervical spine was performed without contrast. INDICATION: Right shoulder pain. COMPARISON: There are no prior studies available for comparison. FINDINGS: The T2 sagittal images show the vertebral body heights and alignment to be generally within normal limits. There is desiccation of the disc at every level. At the C6-C7, there is a focal disc protrusion to the right. The disc indents the right ventral aspect of the thecal sac and narrows the AP diameter to approximately 8.2 mm. The disc is also in close proximity to the origin of the exiting right nerve root at this level. There is also a central disc bulge at the C5-C6 level. The disc indents the ventral aspect of the thecal sac and narrows the AP diameter to 6.9 mm. There is mild narrowing of the neuroforamen bilaterally at this level as well. At the C4-C5 level, there is also a disc bulge centrally. The AP diameter of the thecal sac is narrowed to 9.8 mm. There is only mild narrowing of the neuroforamen bilaterally at this level. The remainder of the cervical spine is unremarkable for spinal stenosis or nerve root encroachment. There is no abnormal signal arising from the cord or other vertebral bodies to indicate an acute abnormality. There is no evidence for a paraspinal mass. The expected carotid and vertebral flow voids are evident bilaterally. The left vertebral artery is dominant. IMPRESSION: 1. There is degenerative disc and bony disease involving the lower cervical spine. This includes a focal disc protrusion to the right at C6-C7. There is moderate central stenosis at this level and the disc material is in close proximity to the origin of the exiting right nerve root. 2. There is also central stenosis at C5-C6 and borderline stenosis at C4-C5. There is mild narrowing of the neuroforamen bilaterally at these levels. 3. The remainder of the cervical spine is unremarkable for spinal stenosis or nerve root encroachment. 4. There is no sign of an acute bony abnormality or of a cord lesion. Dictated by: Dictated on workstation # [id number]
== END ==
LOC: RAD 10:09
PROVIDERS: ATTEND Neurological Surgery
DX: M48.02 Spinal stenosis, cervical region (principal); M99.71 Connective tissue and disc stenosis of intervertebral foramina of cervical region; M50.30 Other cervical disc degeneration, unspecified cervical region; M50.223 Other cervical disc displacement at C6-C7 level; R27.0 Ataxia, unspecified
CPT/HCPCS: 72141

== ENCOUNTER → 2018-02-14 | Outpatient (CLI) | payer MEDICARE, MEDICAID ==
--- NOTE | 2018-02-14 16:02 | Diagnostic Imaging Report ---
INDICATION: Cervical spine stenosis. TIME OF EXAMINATION: 02:52 p.m. TECHNIQUE: AP, flexion and extension views of the cervical spine were obtained. FINDINGS: There is minimal anterolisthesis of C3 on C4, C5 on C6 and C6 on C7 during flexion. This returns to normal alignment on extension. Degenerative disc disease at C5-C6 and C6-C7 levels is seen with disc space narrowing and marginal spurring. The prevertebral tissues are normal. Odontoid is intact. IMPRESSION: Cervical spondylosis, as described with mild multilevel motion during flexion-extension. No acute fracture is seen. Dictated by: Dictated on workstation # [id number]
== END ==
LOC: RAD 14:12
PROVIDERS: ATTEND Neurological Surgery
DX: M48.02 Spinal stenosis, cervical region (principal); M50.322 Other cervical disc degeneration at C5-C6 level; M47.812 Spondylosis without myelopathy or radiculopathy, cervical region
CPT/HCPCS: 72040

== ENCOUNTER 2018-05-24 05:48 | Outpatient (CLI) | payer MEDICARE, MEDICAID ==
[~2018-05-24] VITALS: Ht 165.1 cm; Wt 127.0 kg
[~2018-05-24 05:48] MED LIST changes: -AMLO5TAB2 PO; +AMLO5TAB7 PO
[2018-05-24] MEDS ORDERED: HYDR-3820 PO (13:31)
[2018-05-24] MEDS ORDERED: BUPR150T20 PO (13:31)
== END 2018-05-24 13:32 | disposition home or self-care (01) ==
LOC: PREOP 05:48
PROVIDERS: ATTEND Specialist
DX: Z01.818 Encounter for other preprocedural examination (principal)

== ENCOUNTER 2018-05-25 06:32 | Day surgery (SDC) | payer MEDICARE, MEDICAID ==
[~2018-05-25] VITALS: Ht 165.1 cm; Wt 127.0 kg
[~2018-05-25 06:32] MED LIST changes: +BUPR150T20 PO
[2018-05-25] MEDS ORDERED: TIMOLOL MALEATE 0.5% 5 ML (TIMOPTIC) BTL OU PRN (06:45)
[2018-05-25] MEDS ORDERED: LIDOCAINE PF 1% 2 ML AMP IR PRN (06:45)
[2018-05-25] MEDS ORDERED: EPINEPHrine INJECTION 1 MG/ML AMP INJ ONE (06:45)
[2018-05-25] MEDS ORDERED: MOXIFLOXACIN OPHTH SOLN 5 MG/ML 0.3 ML SYRINGE OP ONE (06:45)
[2018-05-25] MEDS ORDERED: POVIDONE (BETADINE) OPHTH SOLN 5% 30 ML OP ONE (06:45)
[2018-05-25 06:55] VITALS: BP 176/99
[2018-05-25] MEDS ORDERED: MIDAZOLAM 2 MG/2 ML (VERSED) VIAL ONE (06:59)
[2018-05-25] MEDS: TETRACAINE 0.5% OPHTH SOLN 4 ML BTL (SINGLE DOSE ONLY) OU PRN ×4 (07:00→07:09)
[2018-05-25] MEDS: PHENYLEPHRINE 10% OPHTH (NEO-SYN) 5 ML BTL OU SCH ×3 (07:03→07:09)
[2018-05-25] MEDS: CYCLOPENTOLATE 1% (CYCLOGYL) 2 ML DROPS OP SCH ×3 (07:03→07:09)
--- NOTE | 2018-05-25 07:31 | Ophthalmologist Pre-Op Note ---
Pre-Operative Progress Note H&P Reviewed The H&P was reviewed, patient examined and no changes noted. Date H&P Reviewed: May 25, 2018 Time H&P Reviewed: 07:31 Pre-Op Dx Cataract, Right Eye KIAN LA MD May 25, 2018 07:31
--- NOTE | 2018-05-25 07:55 | Ophthalmology Operative Report ---
Cataract removal/placement IOL PREOPERATIVE DIAGNOSIS: Cataract Right Eye POSTOPERATIVE DIAGNOSIS: Cataract Right Eye PROCEDURE: Cataract removal and placement of posterior chamber implant, right eye SURGEON: Jerod La ANESTHESIA: Topical with sedation COMPLICATIONS: None ESTIMATED BLOOD LOSS: Minimal DESCRIPTION OF PROCEDURE: After proper informed consent was obtained, the patient, a 62 female, was taken to the Operating Room and the right eye was anesthetized with tetracaine. The right eye was then prepped and draped in the usual manner. A wire lid speculum was placed. A paracentesis was made at the left hand position. Preservative free lidocaine was injected into the anterior chamber followed by viscoelastic. A clear corneal incision was made in the temporal position. A capsulorrhexis was preformed and the central nuclear and cortical material were removed. The posterior capsule was polished and Sj 19.5 AU00T0 IOL was placed into the capsular bag. The residual viscoelastic was aspirated and balanced saline solution was injected into the anterior chamber. Moxifloxacin was injected into the anterior chamber. The wound was checked and found to be water tight. The patient tolerated the procedure well without complications. JEROD LA MD May 25, 2018 07:55
[2018-05-25 08:10] VITALS: BP 149/75
--- NOTE | 2018-05-25 11:05 | Anesthesia-General Post-Op ---
MAC Patient Condition Mental Status/LOC: Same as Preop Cardiovascular: Satisfactory Nausea/Vomiting: Absent Respiratory: Satisfactory Pain: Controlled Complications: Absent Post Op Complications Complications None Follow Up Care/Instructions Patient Instructions None needed. Anesthesiology Discharge Order Discharge Order Patient is doing well, no complaints, stable vital signs, no apparent adverse anesthesia problems. No complications reported per nursing. FUNMI LOPEZ CRNA May 25, 2018 11:05
== END 2018-05-25 08:10 | disposition home or self-care (01) ==
LOC: SDC 06:32
PROVIDERS: ATTEND Specialist
DX: H26.9 Unspecified cataract (principal); I10 Essential (primary) hypertension; F41.9 Anxiety disorder, unspecified; E11.36 Type 2 diabetes mellitus with diabetic cataract; E78.5 Hyperlipidemia, unspecified; Z86.73 Personal history of transient ischemic attack (TIA), and cerebral infarction without residual deficits; E66.01 Morbid (severe) obesity due to excess calories; Z79.899 Other long term (current) drug therapy; Z79.82 Long term (current) use of aspirin; Z79.4 Long term (current) use of insulin; Z68.42 Body mass index [BMI] 45.0-49.9, adult
CPT/HCPCS: 82962

== ENCOUNTER 2018-06-08 06:39 | Outpatient (CLI) | payer MEDICARE, MEDICAID | END 2018-06-08 13:37 | disposition home or self-care (01) | LOC: PREOP 06:39 | PROVIDERS: ATTEND Specialist | DX: Z01.818 Encounter for other preprocedural examination (principal) ==

== ENCOUNTER 2018-06-10 08:28 | Day surgery (SDC) | payer MEDICARE, MEDICAID ==
[~2018-06-10] VITALS: Ht 165.1 cm; Wt 127.0 kg
[2018-06-10] MEDS ORDERED: BSS 15 ML IR PRN (08:30)
[2018-06-10] MEDS ORDERED: TIMOLOL MALEATE 0.5% 5 ML (TIMOPTIC) BTL OU PRN (08:30)
[2018-06-10] MEDS ORDERED: POVIDONE (BETADINE) OPHTH SOLN 5% 30 ML OP ONE (08:30)
[2018-06-10] MEDS ORDERED: LIDOCAINE PF 1% 2 ML AMP IR PRN (08:30)
[2018-06-10] MEDS ORDERED: MOXIFLOXACIN OPHTH SOLN 5 MG/ML 0.3 ML SYRINGE OP ONE (08:30)
[2018-06-10] MEDS ORDERED: EPINEPHrine INJECTION 1 MG/ML AMP INJ ONE (08:30)
[2018-06-10] MEDS: TETRACAINE 0.5% OPHTH SOLN 4 ML BTL (SINGLE DOSE ONLY) OU PRN ×4 (08:40→08:55)
[2018-06-10] MEDS: PHENYLEPHRINE 10% OPHTH (NEO-SYN) 5 ML BTL OU SCH ×3 (08:47→08:55)
[2018-06-10] MEDS: CYCLOPENTOLATE 1% (CYCLOGYL) 2 ML DROPS OP SCH ×3 (08:47→08:55)
[2018-06-10 08:50] VITALS: BP 145/74
[2018-06-10] MEDS ORDERED: MIDAZOLAM 2 MG/2 ML (VERSED) VIAL ONE (09:12)
--- NOTE | 2018-06-10 09:14 | Ophthalmologist Pre-Op Note ---
Pre-Operative Progress Note H&P Reviewed The H&P was reviewed, patient examined and no changes noted. Date H&P Reviewed: Jun 10, 2018 Time H&P Reviewed: 09:14 Pre-Op Dx Cataract, Left Eye KIAN LA MD Jun 10, 2018 09:14
--- NOTE | 2018-06-10 09:33 | Ophthalmology Operative Report ---
Cataract removal/placement IOL PREOPERATIVE DIAGNOSIS: Cataract Left Eye POSTOPERATIVE DIAGNOSIS: Cataract Left Eye PROCEDURE: Cataract removal and placement of posterior chamber implant, left eye SURGEON: Jerod La ANESTHESIA: Topical with sedation COMPLICATIONS: None ESTIMATED BLOOD LOSS: Minimal DESCRIPTION OF PROCEDURE: After proper informed consent was obtained, the patient, a 62 female, was taken to the Operating Room and the left eye was anesthetized with tetracaine. The left eye was then prepped and draped in the usual manner. A wire lid speculum was placed. A paracentesis was made at the left hand position. Preservative free lidocaine was injected into the anterior chamber followed by viscoelastic. A clear corneal incision was made in the temporal position. A capsulorrhexis was preformed and the central nuclear and cortical material were removed. The posterior capsule was polished and an Sj 19.0 AU00T0 IOL was placed into the capsular bag. The residual viscoelastic was aspirated and balanced saline solution was injected into the anterior chamber. Moxifloxacin was injected into the anterior chamber. The wound was checked and found to be water tight. The patient tolerated the procedure well without complications. JEROD LA MD Jun 10, 2018 09:33
[2018-06-10 09:52] VITALS: BP 145/74
[2018-06-10] MEDS ORDERED: acetaZOLAMIDE ER 500 MG CAP (DIAMOX SEQUELS) PO ONE (10:00)
--- OUTSIDE RECORDS SUMMARY | 2018-06-10 13:33 | XMS REPORT ---
Author Author PATRICJAMIL GENI Shah [facility] Address Unknown Care Team Providers Care Machine Welder Name Role Phone GENI RODRIGUEZ Unavailable PROBLEMS Unknown Problems ALLERGIES No Known Allergies ENCOUNTERS Encounter Location Date Diagnosis [facility] [id number] [place] [address] [id number] Mar, Dental examination Z01.20 [facility] [address] [place] [address] [phone] Mar, Dental examination Z01.20 [facility] [address] [id number] December, Encounter for dental examination Z01.20 [facility] [address] [id number] [place] [address] [id number] Nov, Dental examination V72.2 [facility] [address] [place] [address] [id number] Oct, Dental examination Z01.20 [facility] [address] [id number] [place] [address] [id number] Oct, Dental examination Z01.20 [facility] [address] [id number] [place] [address] [id number] Oct, Dental examination Z01.20 [facility] [id number] [place] [address] [id number] Sep, Dental examination Z01.20 [facility] [address] [id number] [place] [address] [id number] Aug, Dental examination Z01.20 [facility] [address] [id number] [place] [address] [id number] Apr, Dental examination Z01.20 [facility] [id number] [phone] Feb, Dental examination Z01.20 [facility] [address] [phone] Feb, Dental examination Z01.20 [facility] [address] [phone] Jan, Dental caries K02.9 [facility] [id number] [place] [address] [id number] December, Dental caries K02.9 [facility] [id number] [place] [address] [id number] Nov, Dental examination Z01.20 [facility] [id number] [place] [address] [phone] Jul, [facility] [id number] [place] [address] [phone] Jun, [facility] [id number] [place] [address] [phone] Jun, [facility] [id number] [place] [address] [phone] May, [facility] [id number] [place] [address] [phone] Mar, [facility] [id number] [place] [address] [phone] December, IMMUNIZATIONS No Known Immunizations SOCIAL HISTORY Never Assessed REASON FOR VISIT FILLING PLAN OF CARE Activity Details Follow Up prn Reason:#28-rct/bu/crown VITAL SIGNS Blood pressure systolic 121 mmHg 2017-04-21 Blood pressure diastolic 97 mmHg 2017-04-21 MEDICATIONS Medication Instructions Dosage Frequency Start Date End Date Duration Status Oxycodone HCl Active Lantus Active Temazepam Active Gabapentin Active Levothyroxine Sodium Active Hydrocodone-Acetaminophen Active Xanax Active Alprazolam Active Norvasc Active Lisinopril Active RESULTS No Results PROCEDURES Procedure Date Ordered Result Body Site INTRAORL-PERIAPICAL 1 FILM 16999 Apr 21, 2017 RESIN COMPOS - 2 SURFACES ANTERIOR Apr 21, 2017 RESIN COMPOS - 2 SURFACES ANTERIOR Apr 21, 2017 INSTRUCTIONS MEDICATIONS ADMINISTERED No Known Medications MEDICAL (GENERAL) HISTORY Type Description Date Medical History high blood pressure Medical History stroke Medical History thyroid Medical History diabetes Medical History back trouble Medical History surgery requiring screws Surgical History ruyan y bypass Surgical History appendix Surgical History hysterectomy
--- OUTSIDE RECORDS SUMMARY | 2018-06-10 13:33 | XMS REPORT | Clinical Summary ---
Author Author [facility] Organization [facility] Address Unknown Phone Unavailable Care Team Providers Care Speech Therapy Director Name Role Phone Kathleen Zazueta MD Unavailable Unavailable Huber Ayoub MD PCP Source Comments Some departments are not documenting in the electronic medical record. If you do not see the information that you expected, contact Release of Information in the Health Information Management department at [phone] for further assistance in locating additional records.[facility] Allergies No Known Allergies Current Medications Prescription [...] Morbid obesity with BMI of 50.0-59.9, adult ([facility]) 12/14/2013 Overview: BMI 51. 58 year old [...] prior to surgery. Evelio does not have business center representative 3. Needs Psychology Referral and evaluation prior to surgery. 4. Will see predictive maintenance technician next week and has discussed with Brenna [...] PHYSICAL (COMPREHENSIVE) 1961 EXAM PERTUSSIS VACCINE 1965 HIV SCREENING 1969 TETANUS VACCINE 1971 CERVICAL CANCER SCREENING 1984 BREAST CANCER SCREENING 1994 COLORECTAL CANCER 2004 SCREENING SHINGLES RECOMBINANT 2004 VACCINE (1 of 2) INFLUENZA VACCINE 03/30/2018 Results Not on filefrom Last 3 Months
--- OUTSIDE RECORDS SUMMARY | 2018-06-10 13:37 | XMS REPORT | Continuity of Care Document ---
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 VENTRAL HERNIA WITHOUT OBSTRUCTION OR GA 07/08/2017 MARIE LUNA DO Ot N20.0 CALCULUS OF KIDNEY 07/08/2017 HARRISON BOYKIN MD Ot N20.0 CALCULUS OF KIDNEY 07/08/2017 MARIE LUNA DO Ot Z12.31 ENCNTR SCREEN MAMMOGRAM FOR MALIGNANT NE 07/08/2017 MARIE LUNA DO, Ot J18.9 PNEUMONIA, UNSPECIFIED ORGANISM 07/08/2017 MARIE LUNA DO Ot R09.02 HYPOXEMIA 07/08/2017 Gema REYES MD Ot E11.622 TYPE 2 DIABETES MELLITUS WITH OTHER SKIN 07/08/2017 Gema REYES MD Ot I73.9 PERIPHERAL VASCULAR DISEASE, UNSPECIFIED 07/08/2017 Gema REYES MD Ot L97.929 NON-PRS CHRONIC ULC UNSP PRT OF L LOW LE 07/12/2017 KAROL MCCOY MD Ot D62 ACUTE POSTHEMORRHAGIC ANEMIA 07/12/2017 KAROL MCCOY MD Ot E11.40 TYPE 2 DIABETES MELLITUS WITH DIABETIC N 07/12/2017 KAROL MCCOY MD Ot E11.621 TYPE 2 DIABETES MELLITUS WITH FOOT ULCER 07/12/2017 KAROL MCCOY MD Ot F41.9 ANXIETY DISORDER, UNSPECIFIED 07/12/2017 KAROL MCCOY MD Ot K59.09 OTHER CONSTIPATION 07/12/2017 KAROL MCCOY MD Ot L97.429 NON-PRS CHRONIC ULCER OF LEFT HEEL AND M 07/12/2017 KAROL MCCOY MD Ot M79.81 NONTRAUMATIC HEMATOMA OF SOFT TISSUE 07/12/2017 KAROL MCCOY MD Ot N17.9 ACUTE KIDNEY FAILURE, UNSPECIFIED 07/12/2017 KAROL MCCOY MD Ot R10.31 RIGHT LOWER QUADRANT PAIN 07/12/2017 KAROL MCCOY MD Ot 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 07/12/2017 KAROL MCCOY MD Ot Z79.82 OPTOMETRY ASSISTANT (CURRENT) USE OF ASPIRIN 07/12/2017 KAROL MCCOY MD Ot Z86.73 PRSNL HX OF TIA (TIA), AND CEREB INFRC W 07/12/2017 KAROL MCCOY MD Ot Z87.01 PERSONAL HISTORY OF PNEUMONIA (RECURRENT 07/12/2017 KAROL MCCOY MD Ot Z87.81 PERSONAL HISTORY OF (HEALED) TRAUMATIC F 07/12/2017 KAROL MCCOY MD Ot Z87.828 PERSONAL HISTORY OF OTH (HEALED) PHYSICA 07/12/2017 KAROL MCCOY MD Ot Z87.891 PERSONAL HISTORY OF NICOTINE DEPENDENCE 07/12/2017 KAROL MCCOY MD Ot Z90.49 ACQUIRED ABSENCE OF OTHER SPECIFIED PART 07/12/2017 KAROL MCCOY MD Ot Z90.710 ACQUIRED ABSENCE OF BOTH CERVIX AND UTER 07/12/2017 KAROL MCCOY MD Ot Z90.89 ACQUIRED ABSENCE OF OTHER ORGANS 07/14/2017 KAROL MCCOY MD Ot D62 ACUTE POSTHEMORRHAGIC ANEMIA 07/14/2017 KAROL MCCOY MD Ot E11.40 TYPE 2 DIABETES MELLITUS WITH DIABETIC N 07/14/2017 KAROL MCCOY MD Ot E11.621 TYPE 2 DIABETES MELLITUS WITH FOOT ULCER 07/14/2017 KAROL MCCOY MD Ot F41.9 ANXIETY DISORDER, UNSPECIFIED 07/14/2017 KAROL MCCOY MD Ot K59.09 OTHER CONSTIPATION 07/14/2017 KAROL MCCOY MD Ot L97.429 NON-PRS CHRONIC ULCER OF LEFT HEEL AND M 07/14/2017 KAROL MCCOY MD Ot M79.81 NONTRAUMATIC HEMATOMA OF SOFT TISSUE 07/14/2017 KAROL MCCOY MD Ot N17.9 ACUTE KIDNEY FAILURE, UNSPECIFIED 07/14/2017 KAROL MCCOY MD Ot R10.31 RIGHT LOWER QUADRANT PAIN 07/14/2017 KAROL MCCOY MD Ot 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 07/14/2017 KAROL MCCOY MD Ot Z79.82 HALFWAY (CURRENT) USE OF ASPIRIN 07/14/2017 KAROL MCCOY MD Ot Z86.73 PRSNL HX OF TIA (TIA), AND CEREB INFRC W 07/14/2017 KAROL MCCOY MD Ot Z87.01 PERSONAL HISTORY OF PNEUMONIA (RECURRENT 07/14/2017 KAROL MCCOY MD Ot Z87.81 PERSONAL HISTORY OF (HEALED) TRAUMATIC F 07/14/2017 KAROL MCCOY MD Ot Z87.828 PERSONAL HISTORY OF OTH (HEALED) PHYSICA 07/14/2017 KAROL MCCOY MD Ot Z87.891 PERSONAL HISTORY OF NICOTINE DEPENDENCE 07/14/2017 KAROL MCCOY MD Ot Z90.49 ACQUIRED ABSENCE OF OTHER SPECIFIED PART 07/14/2017 KAROL MCCOY MD Ot Z90.710 ACQUIRED ABSENCE OF BOTH CERVIX AND UTER 07/14/2017 KAROL MCCOY MD Ot Z90.89 ACQUIRED ABSENCE OF OTHER ORGANS 07/14/2017 MARIE LUNA DO Ot J18.9 PNEUMONIA, UNSPECIFIED ORGANISM 07/14/2017 MARIE LUNA DO Ot R09.02 HYPOXEMIA 07/16/2017 LAURA TELLEZ DO Ot D64.9 ANEMIA, UNSPECIFIED 07/16/2017 LAURA TELLEZ DO Ot E11.622 TYPE 2 DIABETES MELLITUS WITH OTHER SKIN 07/16/2017 LAURA TELLEZ DO Ot I10 ESSENTIAL (PRIMARY) HYPERTENSION 07/16/2017 LAURA TELLEZ DO Ot I73.9 PERIPHERAL VASCULAR DISEASE, UNSPECIFIED 07/16/2017 LAURA TELLEZ DO Ot I97.638 POSTPROC HEMATOMA OF A CIRC SYS ORG FOL 07/16/2017 LAURA TELLEZ DO Ot J45.909 UNSPECIFIED ASTHMA, UNCOMPLICATED 07/16/2017 LAURA TELLEZ DO Ot L97.329 NON-PRESSURE CHRONIC ULCER OF LEFT ANKLE 07/16/2017 LAURA TELLEZ DO, Ot M47.816 SPONDYLOSIS W/O MYELOPATHY OR RADICULOPA 07/16/2017 LAURA TELLEZ DO, Ot Z79.899 OTHER HALFWAY (CURRENT) DRUG THERAPY 07/16/2017 LAURA TELLEZ DO, Ot Z87.891 PERSONAL HISTORY OF NICOTINE DEPENDENCE 07/19/2017 MARIE LUNA DO, Ot J18.9 PNEUMONIA, UNSPECIFIED ORGANISM 07/19/2017 MARIE LUNA DO Ot R09.02 HYPOXEMIA 08/18/2017 Gema REYES MD Ot E11.622 TYPE 2 DIABETES MELLITUS WITH OTHER SKIN 08/18/2017 Gema REYES MD, Ot I73.9 PERIPHERAL VASCULAR DISEASE, UNSPECIFIED 08/18/2017 Gema REYES MD Ot L97.929 NON-PRS CHRONIC ULC UNSP PRT OF L LOW LE 12/09/2017 Ot V76.12 OTH SCREEN MAMMO-MALIGN NEOPLASM OF [place] 12/09/2017 Ot 553.20 VENTRAL HERNIA NOS 12/09/2017 Ot 789.01 ABDOMINAL PAIN, RIGHT UPPER QUADRANT 12/09/2017 MARIE LUNA DO Ot 440.20 ATHEROSCLEROSIS [place] ARTERIES EXTREMIT 12/09/2017 MARIE LUNA DO Ot V81.5 SCREEN FOR NEPHROPATHY 12/09/2017 MARIE LUNA DO Ot 401.9 HYPERTENSION NOS 12/09/2017 MARIE LUNA DO Ot 786.09 RESPIRATORY ABNORM NEC 12/09/2017 MARIE LUNA DO Ot 786.09 RESPIRATORY ABNORM NEC 12/09/2017 MARIE LUNA DO Ot V72.83 EXAM PRE-OPERATIVE NEC 12/09/2017 JORGE QUIÑONES MD Ot 250.80 DIAB W OTH SPEC MANIFEST, TYPE II OR UNS 12/09/2017 JORGE QUIÑONES MD Ot 707.15 ULCER OF OTHER PART OF FOOT 12/09/2017 JORGE QUIÑONES MD Ot 250.80 DIAB W OTH SPEC MANIFEST, TYPE II OR UNS 12/09/2017 JORGE QUIÑONES MD Ot 707.15 ULCER OF OTHER PART OF FOOT 12/09/2017 MARIE LUNA DO Ot K43.9 VENTRAL HERNIA WITHOUT OBSTRUCTION OR GA 12/09/2017 MARIE LUNA DO Ot N20.0 CALCULUS OF KIDNEY 12/09/2017 LUCRETIA MARTINEZ, HARRISON Rueda Ot N20.0 CALCULUS OF KIDNEY 12/09/2017 MARIE LUNA DO Ot Z12.31 ENCNTR SCREEN MAMMOGRAM FOR MALIGNANT NE 12/09/2017 MARIE LUNA DO, Ot J18.9 PNEUMONIA, UNSPECIFIED ORGANISM 12/09/2017 MARIE LUNA DO Ot R09.02 HYPOXEMIA 12/10/2017 Ot V76.12 OTH SCREEN MAMMO-MALIGN NEOPLASM OF [place]LA 12/10/2017 Ot 553.20 VENTRAL HERNIA NOS 12/10/2017 Ot 789.01 ABDOMINAL PAIN, RIGHT UPPER QUADRANT 12/10/2017 MARIE LUNA DO Ot 440.20 ATHEROSCLEROSIS [place] ARTERIES EXTREMIT 12/10/2017 MARIE LUNA DO Ot V81.5 SCREEN FOR NEPHROPATHY 12/10/2017 MARIE LUNA DO Ot 401.9 HYPERTENSION NOS 12/10/2017 MARIE LUNA DO Ot 786.09 RESPIRATORY ABNORM NEC 12/10/2017 MARIE LUNA DO Ot 786.09 RESPIRATORY ABNORM NEC 12/10/2017 MARIE LUNA DO Ot V72.83 EXAM PRE-OPERATIVE NEC 12/10/2017 ISHMAEL MARTINEZ, JORGE Scott Ot 250.80 DIAB W OTH SPEC MANIFEST, TYPE II OR UNS 12/10/2017 JORGE QUIÑONES MD Ot 707.15 ULCER OF OTHER PART OF FOOT 12/10/2017 JORGE QUIÑONES MD Ot 250.80 DIAB W OTH SPEC MANIFEST, TYPE II OR UNS 12/10/2017 JORGE QUIÑONES MD Ot 707.15 ULCER OF OTHER PART OF FOOT 12/10/2017 MARIE LUNA DO Ot K43.9 VENTRAL HERNIA WITHOUT OBSTRUCTION OR GA 12/10/2017 MARIE LUNA DO Ot N20.0 CALCULUS OF KIDNEY 12/10/2017 LUCRETIA MARTINEZ, HARRISON Rueda Ot N20.0 CALCULUS OF KIDNEY 12/10/2017 MARIE LUNA DO Ot Z12.31 ENCNTR SCREEN MAMMOGRAM FOR MALIGNANT NE 12/10/2017 MARIE LUNA DO Ot J18.9 PNEUMONIA, UNSPECIFIED ORGANISM 12/10/2017 MARIE LUNA DO Ot R09.02 HYPOXEMIA 12/13/2017 MARIE LUNA DO, Ot M47.817 SPONDYLS W/O MYELOPATHY OR RADICULOPATHY 12/13/2017 MARIE LUNA DO Ot M48.07 SPINAL STENOSIS, LUMBOSACRAL REGION 12/13/2017 MARIE LUNA DO Ot M51.27 OTHER INTERVERTEBRAL DISC DISPLACEMENT, 12/13/2017 MARIE LUNA DO Ot 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 DISC DEGENERATION, 12/13/2017 MARIE LUNA DO Ot T14.90XA INJURY, UNSPECIFIED, INITIAL ENCOUNTER 12/13/2017 MARIE LUNA DO Ot Z98.890 OTHER SPECIFIED POSTPROCEDURAL STATES 12/13/2017 MARIE LUNA DO, Ot M47.817 SPONDYLS W/O MYELOPATHY OR RADICULOPATHY 12/13/2017 MARIE LUNA DO Ot M48.07 SPINAL STENOSIS, LUMBOSACRAL REGION 12/13/2017 MARIE LUNA DO Ot M51.27 OTHER INTERVERTEBRAL DISC DISPLACEMENT, 12/13/2017 MARIE LUNA DO Ot 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 DISC DEGENERATION, 12/13/2017 MARIE LUNA DO Ot T14.90XA INJURY, UNSPECIFIED, INITIAL ENCOUNTER 12/13/2017 MARIE LUNA DO Ot Z98.890 OTHER SPECIFIED POSTPROCEDURAL STATES 12/13/2017 Ot V76.12 OTH SCREEN MAMMO-MALIGN NEOPLASM OF [place]AYLA 12/13/2017 Ot 553.20 VENTRAL HERNIA NOS 12/13/2017 Ot 789.01 ABDOMINAL PAIN, RIGHT UPPER QUADRANT 12/13/2017 MARIE LUNA DO Ot 440.20 ATHEROSCLEROSIS [place] ARTERIES EXTREMIT 12/13/2017 MARIE LUNA DO Ot V81.5 SCREEN FOR NEPHROPATHY 12/13/2017 MARIE LUNA DO Ot 401.9 HYPERTENSION NOS 12/13/2017 MARIE LUNA DO Ot 786.09 RESPIRATORY ABNORM NEC 12/13/2017 MARIE LUNA DO Ot 786.09 RESPIRATORY ABNORM NEC 12/13/2017 MARIE LUNA DO Ot V72.83 EXAM PRE-OPERATIVE NEC 12/13/2017 JORGE QUIÑONES MD Ot 250.80 DIAB W OTH SPEC MANIFEST, TYPE II OR UNS 12/13/2017 JORGE QUIÑONES MD Ot 707.15 ULCER OF OTHER PART OF FOOT 12/13/2017 ISHMAEL MARTINEZ, JORGE Scott Ot 250.80 DIAB W OTH SPEC MANIFEST, TYPE II OR UNS 12/13/2017 JORGE QUIÑONES MD Ot 707.15 ULCER OF OTHER PART OF FOOT 12/13/2017 MARIE LUNA DO Ot K43.9 VENTRAL HERNIA WITHOUT OBSTRUCTION OR GA 12/13/2017 MARIE LUNA DO Ot N20.0 CALCULUS OF KIDNEY 12/13/2017 HARRISON BOYKIN MD Ot N20.0 CALCULUS OF KIDNEY 12/13/2017 MARIE LUNA DO Ot Z12.31 ENCNTR SCREEN MAMMOGRAM FOR MALIGNANT NE 12/13/2017 MARIE LUNA DO, Ot J18.9 PNEUMONIA, UNSPECIFIED ORGANISM 12/13/2017 MARIE LUNA DO Ot R09.02 HYPOXEMIA 12/13/2017 MARIE LUNA DO Ot M47.817 SPONDYLS W/O MYELOPATHY OR RADICULOPATHY 12/13/2017 MARIE LUNA DO Ot M48.07 SPINAL STENOSIS, LUMBOSACRAL REGION 12/13/2017 MARIE LUNA DO Ot M51.27 OTHER INTERVERTEBRAL DISC DISPLACEMENT, 12/13/2017 MARIE LUNA DO Ot 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 DISC DEGENERATION, 12/13/2017 MARIE LUNA DO, Ot T14.90XA INJURY, UNSPECIFIED, INITIAL ENCOUNTER 12/13/2017 MARIE LUNA DO Ot Z98.890 OTHER SPECIFIED POSTPROCEDURAL STATES 12/31/2017 MARIE LUNA DO, Ot M47.817 SPONDYLS W/O MYELOPATHY OR RADICULOPATHY 12/31/2017 MARIE LUNA DO Ot M48.07 SPINAL STENOSIS, LUMBOSACRAL REGION 12/31/2017 MARIE LUNA DO Ot M51.27 OTHER INTERVERTEBRAL DISC DISPLACEMENT, 12/31/2017 MARIE LUNA DO Ot 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 DISC DEGENERATION, 12/31/2017 MARIE LUNA DO, Ot T14.90XA INJURY, UNSPECIFIED, INITIAL ENCOUNTER 12/31/2017 MARIE LUNA DO Ot Z98.890 OTHER SPECIFIED POSTPROCEDURAL STATES 01/05/2018 MARIE LUNA DO, Ot M47.817 SPONDYLS W/O MYELOPATHY OR RADICULOPATHY 01/05/2018 MARIE LUNA DO Ot M48.07 SPINAL STENOSIS, LUMBOSACRAL REGION 01/05/2018 MARIE LUNA DO Ot M51.27 OTHER INTERVERTEBRAL DISC DISPLACEMENT, 01/05/2018 MARIE LUNA DO Ot 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 DISC DEGENERATION, 01/05/2018 MARIE LUNA DO Ot T14.90XA INJURY, UNSPECIFIED, INITIAL ENCOUNTER 01/05/2018 MARIE LUNA DO Ot Z98.890 OTHER SPECIFIED POSTPROCEDURAL STATES 02/03/2018 MARIE LUNA DO Ot E87.8 OTH DISORDERS OF ELECTROLYTE AND FLUID B 02/03/2018 MARIE LUNA DO Ot G93.9 DISORDER OF BRAIN, UNSPECIFIED 02/03/2018 MARIE LUNA DO Ot R25.1 TREMOR, UNSPECIFIED 02/03/2018 MARIE LUNA DO, Ot Z86.73 PRSNL HX OF TIA (TIA), AND CEREB INFRC W 02/03/2018 ZOIE SWIFT MD, Ot M48.02 SPINAL STENOSIS, CERVICAL REGION 02/03/2018 ZOIE SWIFT MD Ot M50.223 OTHER CERVICAL DISC DISPLACEMENT AT C6-C 02/03/2018 ZOIE SWIFT MD Ot M50.30 OTHER CERVICAL DISC DEGENERATION, UNSP C 02/03/2018 ZOIE SWIFT MD Ot M99.71 CONN TISS AND DISC STENOSIS OF INTVRT FO 02/03/2018 ZOIE SWIFT MD Ot R27.0 ATAXIA, UNSPECIFIED 02/15/2018 ZOIE SWIFT MD, Ot M47.812 SPONDYLOSIS W/O MYELOPATHY OR RADICULOPA 02/15/2018 ZOIE SWIFT MD, Ot M48.02 SPINAL STENOSIS, CERVICAL REGION 02/15/2018 ZIOE SWIFT MD Ot M50.322 OTHER CERVICAL DISC DEGENERATION AT C5-C 02/23/2018 ZOIE SWIFT MD, Ot M48.02 SPINAL STENOSIS, CERVICAL REGION 02/23/2018 ZOIE SWIFT MD Ot M50.223 OTHER CERVICAL DISC DISPLACEMENT AT C6-C 02/23/2018 ZOIE SWIFT MD Ot M50.30 OTHER CERVICAL DISC DEGENERATION, UNSP C 02/23/2018 ZOIE SWIFT MD Ot M99.71 CONN TISS AND DISC STENOSIS OF INTVRT FO 02/23/2018 ZOIE SWIFT MD Ot R27.0 ATAXIA, UNSPECIFIED 02/24/2018 MARIE LUNA DO Ot E87.8 OTH DISORDERS OF ELECTROLYTE AND FLUID B 02/24/2018 MARIE LNUA DO Ot G93.9 DISORDER OF BRAIN, UNSPECIFIED 02/24/2018 MARIE LUNA DO Ot R25.1 TREMOR, UNSPECIFIED 02/24/2018 MARIE LUNA DO Ot Z86.73 PRSNL HX OF TIA (TIA), AND CEREB INFRC W 02/28/2018 ZOIE SWIFT MD Ot M48.02 SPINAL STENOSIS, CERVICAL REGION 02/28/2018 ZOIE SWIFT MD Ot M50.223 OTHER CERVICAL DISC DISPLACEMENT AT C6-C 02/28/2018 ZOIE SWIFT MD Ot M50.30 OTHER CERVICAL DISC DEGENERATION, UNSP C 02/28/2018 ZOIE SWIFT MD Ot M99.71 CONN TISS AND DISC STENOSIS OF INTVRT FO 02/28/2018 ZOIE SWIFT MD Ot R27.0 ATAXIA, UNSPECIFIED 03/03/2018 MARIE LUNA DO Ot E87.8 OTH DISORDERS OF ELECTROLYTE AND FLUID B 03/03/2018 MARIE LUNA DO Ot G93.9 DISORDER OF BRAIN, UNSPECIFIED 03/03/2018 MARIE LUNA DO Ot R25.1 TREMOR, UNSPECIFIED 03/03/2018 MARIE LUNA DO Ot Z86.73 PRSNL HX OF TIA (TIA), AND CEREB INFRC W 03/08/2018 ZOIE SWIFT MD, Ot M47.812 SPONDYLOSIS W/O MYELOPATHY OR RADICULOPA 03/08/2018 ZOIE SWIFT MD Ot M48.02 SPINAL STENOSIS, CERVICAL REGION 03/08/2018 ZOIE SWIFT MD Ot M50.322 OTHER CERVICAL DISC DEGENERATION AT C5-C 03/11/2018 ZOIE SWIFT MD, Ot M47.812 SPONDYLOSIS W/O MYELOPATHY OR RADICULOPA 03/11/2018 JAMISON MARTINEZ, ZOIE Odom Ot M48.02 SPINAL STENOSIS, CERVICAL REGION 03/11/2018 JAMISON MARTINEZ, ZOIE Odom Ot M50.322 OTHER CERVICAL DISC DEGENERATION AT C5-C 05/24/2018 MARIE LUNA DO Ot 440.20 ATHEROSCLEROSIS [place] ARTERIES EXTREMIT 05/24/2018 MARIE LUNA DO Ot V81.5 SCREEN FOR NEPHROPATHY 05/24/2018 MARIE LUNA DO Ot 401.9 HYPERTENSION NOS 05/24/2018 MARIE LUNA DO Ot 786.09 RESPIRATORY ABNORM NEC 05/24/2018 MARIE LUNA DO Ot 786.09 RESPIRATORY ABNORM NEC 05/24/2018 MARIE LUNA DO Ot V72.83 EXAM PRE-OPERATIVE NEC 05/24/2018 ISHMAEL MARTINEZ, JORGE Scott Ot 250.80 DIAB W OTH SPEC MANIFEST, TYPE II OR UNS 05/24/2018 JORGE QUIÑONES MD Ot 707.15 ULCER OF OTHER PART OF FOOT 05/24/2018 JORGE QUIÑONES MD Ot 250.80 DIAB W OTH SPEC MANIFEST, TYPE II OR UNS 05/24/2018 JORGE QUIÑONES MD Ot 707.15 ULCER OF OTHER PART OF FOOT 05/24/2018 MARIE LUNA DO Ot K43.9 VENTRAL HERNIA WITHOUT OBSTRUCTION OR GA 05/24/2018 MARIE LUNA DO Ot N20.0 CALCULUS OF KIDNEY 05/24/2018 LUCRETIA MARTINEZ, HARRISON Rueda Ot N20.0 CALCULUS OF KIDNEY 05/24/2018 MARIE LUNA DO Ot Z12.31 ENCNTR SCREEN MAMMOGRAM FOR MALIGNANT NE 05/24/2018 MARIE LUNA DO, Ot J18.9 PNEUMONIA, UNSPECIFIED ORGANISM 05/24/2018 MARIE LUNA DO Ot R09.02 HYPOXEMIA 05/24/2018 MARIE LUNA DO Ot M47.817 SPONDYLS W/O MYELOPATHY OR RADICULOPATHY 05/24/2018 MARIE LUNA DO, Ot M48.07 SPINAL STENOSIS, LUMBOSACRAL REGION 05/24/2018 MARIE LUNA DO Ot M51.27 OTHER INTERVERTEBRAL DISC DISPLACEMENT, 05/24/2018 MARIE LUNA DO Ot 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 DISC DEGENERATION, 05/24/2018 MARIE LUNA DO Ot T14.90XA INJURY, UNSPECIFIED, INITIAL ENCOUNTER 05/24/2018 MARIE LUNA DO, Ot Z98.890 OTHER SPECIFIED POSTPROCEDURAL STATES 05/24/2018 MARIE LUNA DO Ot E87.8 OTH DISORDERS OF ELECTROLYTE AND FLUID B 05/24/2018 MARIE LUNA DO Ot G93.9 DISORDER OF BRAIN, UNSPECIFIED 05/24/2018 MARIE LUNA DO Ot R25.1 TREMOR, UNSPECIFIED 05/24/2018 MARIE LUNA DO, Ot Z86.73 PRSNL HX OF TIA (TIA), AND CEREB INFRC W 05/24/2018 ZOIE SWIFT MD, Ot M48.02 SPINAL STENOSIS, CERVICAL REGION 05/24/2018 ZOIE SWIFT MD Ot M50.223 OTHER CERVICAL DISC DISPLACEMENT AT C6-C 05/24/2018 ZOIE SWIFT MD Ot M50.30 OTHER CERVICAL DISC DEGENERATION, UNSP C 05/24/2018 ZOIE SWIFT MD Ot M99.71 CONN TISS AND DISC STENOSIS OF INTVRT FO 05/24/2018 ZOIE SWIFT MD Ot R27.0 ATAXIA, UNSPECIFIED 05/24/2018 ZOIE SWIFT MD Ot M47.812 SPONDYLOSIS W/O MYELOPATHY OR RADICULOPA 05/24/2018 ZOIE SWIFT MD, Ot M48.02 SPINAL STENOSIS, CERVICAL REGION 05/24/2018 ZOIE SWIFT MD Ot M50.322 OTHER CERVICAL DISC DEGENERATION AT C5-C 05/25/2018 MARIE LUNA DO Ot 440.20 ATHEROSCLEROSIS [place] ARTERIES EXTREMIT 05/25/2018 MARIE LUNA DO Ot V81.5 SCREEN FOR NEPHROPATHY 05/25/2018 MARIE LUNA DO Ot 401.9 HYPERTENSION NOS 05/25/2018 MARIE LUNA DO Ot 786.09 RESPIRATORY ABNORM NEC 05/25/2018 MARIE LUNA DO Ot 786.09 RESPIRATORY ABNORM NEC 05/25/2018 MARIE LUNA DO Ot V72.83 EXAM PRE-OPERATIVE NEC 05/25/2018 ISHMAEL MARTINEZ, JORGE Scott Ot 250.80 DIAB W OTH SPEC MANIFEST, TYPE II OR UNS 05/25/2018 ISHMAEL MARTINEZ, JORGE Scott Ot 707.15 ULCER OF OTHER PART OF FOOT 05/25/2018 ISHMAEL MARTINEZ, JORGE Scott Ot 250.80 DIAB W OTH SPEC MANIFEST, TYPE II OR UNS 05/25/2018 ISHMAEL MARTINEZ, JORGE Scott Ot 707.15 ULCER OF OTHER PART OF FOOT 05/25/2018 MARIE LUNA DO Ot K43.9 VENTRAL HERNIA WITHOUT OBSTRUCTION OR GA 05/25/2018 MARIE LUNA DO Ot N20.0 CALCULUS OF KIDNEY 05/25/2018 LUCRETIA MARTINEZ, HARRISON Rueda Ot N20.0 CALCULUS OF KIDNEY 05/25/2018 MARIE LUNA DO Ot Z12.31 ENCNTR SCREEN MAMMOGRAM FOR MALIGNANT NE 05/25/2018 MARIE LUNA DO, Ot J18.9 PNEUMONIA, UNSPECIFIED ORGANISM 05/25/2018 MARIE LUNA DO Ot R09.02 HYPOXEMIA 05/25/2018 MARIE LUAN DO, Ot M47.817 SPONDYLS W/O MYELOPATHY OR RADICULOPATHY 05/25/2018 MARIE LUNA DO, Ot M48.07 SPINAL STENOSIS, LUMBOSACRAL REGION 05/25/2018 MARIE LUNA DO, Ot M51.27 OTHER INTERVERTEBRAL DISC DISPLACEMENT, 05/25/2018 MARIE LUNA DO, Ot 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 DISC DEGENERATION, 05/25/2018 MARIE LUNA DO, Ot T14.90XA INJURY, UNSPECIFIED, INITIAL ENCOUNTER 05/25/2018 MARIE LUNA DO, Ot Z98.890 OTHER SPECIFIED POSTPROCEDURAL STATES 05/25/2018 MARIE LUNA DO Ot E87.8 OT DISORDERS OF ELECTROLYTE AND FLUID B 05/25/2018 MARIE LUNA DO Ot G93.9 DISORDER OF BRAIN, UNSPECIFIED 05/25/2018 MARIE LUNA DO Ot R25.1 TREMOR, UNSPECIFIED 05/25/2018 MARIE LUNA DO, Ot Z86.73 PRSNL HX OF TIA (TIA), AND CEREB INFRC W 05/25/2018 JAMISON MARTINEZ, ZOIE Odom Ot M48.02 SPINAL STENOSIS, CERVICAL REGION 05/25/2018 JAMISON MARTINEZ, ZOIE Odom Ot M50.223 OTHER CERVICAL DISC DISPLACEMENT AT C6-C 05/25/2018 ZOIE SWIFT MD Ot M50.30 OTHER CERVICAL DISC DEGENERATION, UNSP C 05/25/2018 ZOIE SWIFT MD Ot M99.71 CONN TISS AND DISC STENOSIS OF INTVRT FO 05/25/2018 ZOIE SWIFT MD Ot R27.0 ATAXIA, UNSPECIFIED 05/25/2018 ZOIE SWIFT MD Ot M47.812 SPONDYLOSIS W/O MYELOPATHY OR RADICULOPA 05/25/2018 ZOIE SWIFT MD Ot M48.02 SPINAL STENOSIS, CERVICAL REGION 05/25/2018 ZOIE SWIFT MD Ot M50.322 OTHER CERVICAL DISC DEGENERATION AT C5-C 05/26/2018 KIAN LA MD Ot E11.9 TYPE 2 DIABETES MELLITUS WITHOUT COMPLIC 05/26/2018 KIAN LA MD, Ot E66.01 MORBID (SEVERE) OBESITY DUE TO EXCESS CA 05/26/2018 KIAN LA MD Ot E78.5 HYPERLIPIDEMIA, UNSPECIFIED 05/26/2018 KIAN LA MD, Ot F41.9 ANXIETY DISORDER, UNSPECIFIED 05/26/2018 KIAN LA MD, Ot H26.9 UNSPECIFIED CATARACT 05/26/2018 KIAN LA MD, Ot I10 ESSENTIAL (PRIMARY) HYPERTENSION 05/26/2018 KIAN LA MD, Ot Z68.42 BODY MASS INDEX (BMI) 45.0-49.9, ADULT 05/26/2018 KIAN LA MD, Ot 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 05/26/2018 KIAN LA MD, Ot Z79.82 HALFWAY (CURRENT) USE OF ASPIRIN 05/26/2018 KIAN LA MD, Ot Z79.899 OTHER HALFWAY (CURRENT) DRUG THERAPY 05/26/2018 KIAN LA MD, Ot Z86.73 PRSNL HX OF TIA (TIA), AND CEREB INFRC W 05/26/2018 KIAN LA MD, Ot E11.36 TYPE 2 DIABETES MELLITUS WITH DIABETIC C 05/26/2018 KIAN LA MD, Ot E66.01 MORBID (SEVERE) OBESITY DUE TO EXCESS CA 05/26/2018 KIAN LA MD, Ot E78.5 HYPERLIPIDEMIA, UNSPECIFIED 05/26/2018 KIAN LA MD, Ot F41.9 ANXIETY DISORDER, UNSPECIFIED 05/26/2018 KIAN LA MD, Ot H26.9 UNSPECIFIED CATARACT 05/26/2018 KIAN LA MD, Ot I10 ESSENTIAL (PRIMARY) HYPERTENSION 05/26/2018 KIAN LA MD, Ot Z68.42 BODY MASS INDEX (BMI) 45.0-49.9, ADULT 05/26/2018 KIAN LA MD, Ot 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 05/26/2018 KIAN LA MD, Ot Z79.82 OPTOMETRY ASSISTANT (CURRENT) USE OF ASPIRIN 05/26/2018 KIAN LA MD, Ot Z79.899 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 05/26/2018 KIAN LA MD, Ot Z86.73 PRSNL HX OF TIA (TIA), AND CEREB INFRC W 05/30/2018 KIAN LA MD, Ot Z01.818 ENCOUNTER FOR OTHER PREPROCEDURAL EXAMIN Procedures Code [place] [address] A1C 01/31/2009 35685 UA W/LONG DIP 05/23/2009 93946 ROUTINE VENIPUNCTURE 07/18/2009 63699 A1C 07/18/2009 98036 CMP 07/18/2009 [id number] GFR CALC 07/18/2009 86.22 EXCIS DEBRIDE OF WOUND, INFECT, OR BURN 11/11/2014 86.22 EXCIS DEBRIDE OF WOUND, INFECT, OR BURN 11/13/2014 [id number] MEASURE OF CARDIAC SAMPL PRESSURE, L H 06/11/2017 [id number] FLUOROSCOPY OF MULT COR ART USING L OSM 06/11/2017 [id number] FLUOROSCOPY OF LEFT HEART USING LOW OSMO 06/11/2017 Results Test Result Range Arterial blood gas measurement - 06/08/17 10:46 Blood pCO2 54 mm[Hg] 35-45 Blood pO2 69 mm[Hg] 79-93 Arterial blood bicarbonate measurement (moles/volume) 23 mmol/L 23-27 Arterial blood base excess by calculation -2.8 mmol/L - 2.5-2.5 Arterial blood oxygen saturation measurement 92 % 94-100 * Inhaled oxygen flow rate 5 L NRG Arterial blood pH measurement with patient temperature correction 7.26 7.37-7.43 Arterial blood carbon dioxide, total measurement (moles/volume) 25.0 mmol/L 21.0-31.0 Body site R RAD NRG Assessment of wrist artery patency prior to arterial puncture YES- POS NRG Setting of ventilation mode NO NRG Measurement of body temperature 98.2 NRG Capillary blood glucose measurement by glucometer (mass/volume) - 06/08/17 10: 47 Capillary blood glucose measurement by glucometer (mass/volume) 271 mg/dL 70-110 Complete blood count (CBC) with automated white blood cell (WBC) differential - 06/08/17 10:50 Blood leukocytes automated count (number/volume) 13.0 10*3/uL 4.3-11.0 Blood erythrocytes automated count (number/volume) 3.42 10*6/uL 4.35-5.85 Venous blood hemoglobin measurement (mass/volume) 10.2 g/dL 11.5-16.0 Blood hematocrit (volume fraction) 33 % 35-52 Automated erythrocyte mean corpuscular volume 96 [foz_us] 80-99 Automated erythrocyte mean corpuscular hemoglobin (mass per erythrocyte) 30 pg 25-34 Automated erythrocyte mean corpuscular hemoglobin concentration measurement ( mass/volume) 31 g/dL 32-36 Automated erythrocyte distribution width ratio 13.5 % 10.0-14.5 Automated blood platelet count (count/volume) 222 10*3/uL 130-400 Automated blood platelet mean volume measurement 12.0 [foz_us] 7.4-10.4 Automated blood neutrophils/100 leukocytes 75 % 42-75 Automated blood lymphocytes/100 leukocytes 18 % 12-44 Blood monocytes/100 leukocytes 7 % 0-12 Automated blood eosinophils/100 leukocytes 0 % 0-10 Automated blood basophils/100 leukocytes 0 % 0-10 Blood neutrophils automated count (number/volume) 9.7 10*3 1.8-7.8 Blood lymphocytes automated count (number/volume) 2.3 10*3 1.0-4.0 Blood monocytes automated count (number/volume) 1.0 10*3 0.0-1.0 Automated eosinophil count 0.0 10*3/uL 0.0-0.3 Automated blood basophil count (count/volume) 0.0 10*3/uL 0.0-0.1 Blood lactic acid measurement (moles/volume) - 06/08/17 10:50 Blood lactic acid measurement (moles/volume) 2.32 mmol/L 0.50-2.00 Comprehensive metabolic panel - 06/08/17 10:50 Serum or plasma sodium measurement (moles/volume) 135 mmol/L 135-145 Serum or plasma potassium measurement (moles/volume) 5.6 mmol/L 3.6-5.0 Serum or plasma chloride measurement (moles/volume) 103 mmol/L 98-107 Carbon dioxide 24 mmol/L 21-32 Serum or plasma anion gap determination (moles/volume) 8 mmol/L 5-14 Serum or plasma urea nitrogen measurement (mass/volume) 37 mg/dL 7-18 Serum or plasma creatinine measurement (mass/volume) 2.62 mg/dL 0.60-1.30 Serum or plasma urea nitrogen/creatinine mass ratio 14 NRG Serum or plasma creatinine measurement with calculation of estimated glomerular filtration rate 18 NRG Serum or plasma glucose measurement (mass/volume) 255 mg/dL 70-105 Serum or plasma calcium measurement (mass/volume) 8.2 mg/dL 8.5-10.1 Serum or plasma total bilirubin measurement (mass/volume) 0.6 mg/dL 0.1-1.0 Serum or plasma alkaline phosphatase measurement (enzymatic activity/volume) 95 U/L 40-136 Serum or plasma aspartate aminotransferase measurement (enzymatic activity/ volume) 25 U/L 5-34 Serum or plasma alanine aminotransferase measurement (enzymatic activity/volume ) 13 U/L 0-55 Serum or plasma protein measurement (mass/volume) 6.7 g/dL 6.4-8.2 Serum or plasma albumin measurement (mass/volume) 3.2 g/dL 3.2-4.5 Magnesium - 06/08/17 10:50 Magnesium 1.8 mg/dL 1.8-2.4 Fibrin D-dimer FEU measurement in platelet poor plasma (mass/volume) - 10:50 Fibrin D-dimer FEU measurement in platelet poor plasma (mass/volume) 4.22 ug/mL 0.00-0.49 Serum or plasma troponin i.cardiac measurement (mass/volume) - 06/08/17 10:50 Serum or plasma troponin i.cardiac measurement (mass/volume) < ng/ mL <0.30 Serum or plasma lithium measurement (moles/volume) - 06/08/17 10:50 BNP level 251.0 pg/mL <100.0 Bacterial blood culture - 06/08/17 10:50 Bacterial blood culture NG NRG Bacterial blood culture - 06/08/17 11:36 Bacterial blood culture NG NRG Complete urinalysis with reflex to culture - 06/08/17 12:15 Urine color determination YELLOW NRG Urine clarity determination CLEAR NRG Urine pH measurement by test strip 5 5-9 Specific gravity of urine by test strip 1.030 1.016- 1.022 Urine protein assay by test strip, semi-quantitative 2+ NEGATIVE Urine glucose detection by automated test strip 1+ NEGATIVE Erythrocytes detection in urine sediment by light microscopy NEGATIVE NEGATIVE Urine ketones detection by automated test strip NEGATIVE NEGATIVE Urine nitrite detection by test strip NEGATIVE NEGATIVE Urine total bilirubin detection by test strip 2+ NEGATIVE Urine urobilinogen measurement by automated test strip (mass/volume) 4 mg/dL NORMAL Urine leukocyte esterase detection by dipstick 1+ NEGATIVE Automated urine sediment erythrocyte count by microscopy (number/high power field) RARE NRG Automated urine sediment leukocyte count by microscopy (number/high power field ) [HPF] NRG Bacteria detection in urine sediment by light microscopy FEW NRG Crystals detection in urine sediment by light microscopy PRESENT NRG Casts detection in urine sediment by light microscopy PRESENT NRG Mucus detection in urine sediment by light microscopy NEGATIVE NRG Complete urinalysis with reflex to culture YES NRG Amorphous sediment detection in urine sediment by light microscopy FEW PRECIOUS URATES NRG Uric acid crystals detection in urine sediment by light microscopy RARE NRG Waxy casts detection in urine sediment by light microscopy 5-10 NRG Bacterial urine culture - 06/08/17 12:15 Bacterial urine culture NG NRG Serum or plasma lactate measurement (moles/volume) - 06/08/17 13:04 Serum or plasma lactate measurement (moles/volume) 2.03 mmol/L 0.50-2.00 Whole blood basic metabolic panel - 06/08/17 13:04 Serum or plasma sodium measurement (moles/volume) 135 mmol/L 135-145 Serum or plasma potassium measurement (moles/volume) 4.8 mmol/L 3.6-5.0 Serum or plasma chloride measurement (moles/volume) 107 mmol/L 98-107 Carbon dioxide 19 mmol/L 21-32 Serum or plasma anion gap determination (moles/volume) 9 mmol/L 5-14 Serum or plasma urea nitrogen measurement (mass/volume) 34 mg/dL 7-18 Serum or plasma creatinine measurement (mass/volume) 2.07 mg/dL 0.60-1.30 Serum or plasma urea nitrogen/creatinine mass ratio 16 NRG Serum or plasma creatinine measurement with calculation of estimated glomerular filtration rate 24 NRG Serum or plasma glucose measurement (mass/volume) 211 mg/dL 70-105 Serum or plasma calcium measurement (mass/volume) 7.5 mg/dL 8.5-10.1 Influenza virus A and B antigen detection - 06/08/17 15:45 FLU RESULT NEGATIVE FOR INFLUENZA A AND B ANTIGENS BY IA NRG Methicillin resistant Staphylococcus aureus (MRSA) screening culture - 15:45 Methicillin resistant Staphylococcus aureus (MRSA) screening culture NEG NRG Capillary blood glucose measurement by glucometer (mass/volume) - 06/08/17 16: 09 Capillary blood glucose measurement by glucometer (mass/volume) 189 mg/dL 70-110 Blood lactic acid measurement (moles/volume) - 06/08/17 17:46 Blood lactic acid measurement (moles/volume) 2.01 mmol/L 0.50-2.00 Capillary blood glucose measurement by glucometer (mass/volume) - 06/08/17 19: 54 Capillary blood glucose measurement by glucometer (mass/volume) 143 mg/dL 70-110 Serum or plasma lactate measurement (moles/volume) - 06/08/17 20:00 Serum or plasma lactate measurement (moles/volume) 2.09 mmol/L 0.50-2.00 Complete blood count (CBC) with automated white blood cell (WBC) differential - 06/09/17 04:55 Blood leukocytes automated count (number/volume) 11.1 10*3/uL 4.3-11.0 Blood erythrocytes automated count (number/volume) 2.83 10*6/uL 4.35-5.85 Venous blood hemoglobin measurement (mass/volume) 8.5 g/dL 11.5-16.0 Blood hematocrit (volume fraction) 27 % 35-52 Automated erythrocyte mean corpuscular volume 97 [foz_us] 80-99 Automated erythrocyte mean corpuscular hemoglobin (mass per erythrocyte) 30 pg 25-34 Automated erythrocyte mean corpuscular hemoglobin concentration measurement ( mass/volume) 31 g/dL 32-36 Automated erythrocyte distribution width ratio 13.3 % 10.0-14.5 Automated blood platelet count (count/volume) 184 10*3/uL 130-400 Automated blood platelet mean volume measurement 12.3 [foz_us] 7.4-10.4 Automated blood neutrophils/100 leukocytes 75 % 42-75 Automated blood lymphocytes/100 leukocytes 17 % 12-44 Blood monocytes/100 leukocytes 8 % 0-12 Automated blood eosinophils/100 leukocytes 1 % 0-10 Automated blood basophils/100 leukocytes 0 % 0-10 Blood neutrophils automated count (number/volume) 8.3 10*3 1.8-7.8 Blood lymphocytes automated count (number/volume) 1.9 10*3 1.0-4.0 Blood monocytes automated count (number/volume) 0.8 10*3 0.0-1.0 Automated eosinophil count 0.1 10*3/uL 0.0-0.3 Automated blood basophil count (count/volume) 0.0 10*3/uL 0.0-0.1 Whole blood basic metabolic panel - 06/09/17 04:55 Serum or plasma sodium measurement (moles/volume) 138 mmol/L 135-145 Serum or plasma potassium measurement (moles/volume) 5.1 mmol/L 3.6-5.0 Serum or plasma chloride measurement (moles/volume) 109 mmol/L 98-107 Carbon dioxide 21 mmol/L 21-32 Serum or plasma anion gap determination (moles/volume) 8 mmol/L 5-14 Serum or plasma urea nitrogen measurement (mass/volume) 33 mg/dL 7-18 Serum or plasma creatinine measurement (mass/volume) 1.60 mg/dL 0.60-1.30 Serum or plasma urea nitrogen/creatinine mass ratio 21 NRG Serum or plasma creatinine measurement with calculation of estimated glomerular filtration rate 33 NRG Serum or plasma glucose measurement (mass/volume) 176 mg/dL 70-105 Serum or plasma calcium measurement (mass/volume) 7.8 mg/dL 8.5-10.1 Serum or plasma phosphate measurement (mass/volume) - 06/09/17 04:55 Serum or plasma phosphate measurement (mass/volume) 3.3 mg/dL 2.3-4.7 Magnesium - 06/09/17 04:55 Magnesium 1.6 mg/dL 1.8-2.4 Serum or plasma troponin i.cardiac measurement (mass/volume) - 06/09/17 07:30 Serum or plasma troponin i.cardiac measurement (mass/volume) 0.47 ng /mL <0.30 Lipid 1996 panel - 06/09/17 07:30 Serum or plasma triglyceride measurement (mass/volume) 163 mg/dL <150 Serum or plasma cholesterol measurement (mass/volume) 147 mg/dL < 200 Serum or plasma cholesterol in HDL measurement (mass/volume) 34 mg/ dL 40-60 Cholesterol in LDL [mass/volume] in serum or plasma by direct assay 83 mg/dL 1-129 Serum or plasma cholesterol in VLDL measurement (mass/volume) 33 mg/ dL 5-40 Capillary blood glucose measurement by glucometer (mass/volume) - 06/09/17 11: 30 Capillary blood glucose measurement by glucometer (mass/volume) 194 mg/dL 70-110 Serum or plasma troponin i.cardiac measurement (mass/volume) - 06/09/17 13:50 Serum or plasma troponin i.cardiac measurement (mass/volume) < ng/ mL <0.30 Capillary blood glucose measurement by glucometer (mass/volume) - 06/09/17 15: 58 Capillary blood glucose measurement by glucometer (mass/volume) 300 mg/dL 70-110 Serum or plasma troponin i.cardiac measurement (mass/volume) - 06/09/17 19:15 Serum or plasma troponin i.cardiac measurement (mass/volume) < ng/ mL <0.30 Capillary blood glucose measurement by glucometer (mass/volume) - 06/09/17 20: 35 Capillary blood glucose measurement by glucometer (mass/volume) 149 mg/dL 70-110 Capillary blood glucose measurement by glucometer (mass/volume) - 06/10/17 05: 19 Capillary blood glucose measurement by glucometer (mass/volume) 97 mg/dL 70-110 Complete blood count (CBC) with automated white blood cell (WBC) differential - 06/10/17 09:42 Blood leukocytes automated count (number/volume) 9.9 10*3/uL 4.3-11.0 Blood erythrocytes automated count (number/volume) 2.74 10*6/uL 4.35-5.85 Venous blood hemoglobin measurement (mass/volume) 8.2 g/dL 11.5-16.0 Blood hematocrit (volume fraction) 27 % 35-52 Automated erythrocyte mean corpuscular volume 97 [foz_us] 80-99 Automated erythrocyte mean corpuscular hemoglobin (mass per erythrocyte) 30 pg 25-34 Automated erythrocyte mean corpuscular hemoglobin concentration measurement ( mass/volume) 31 g/dL 32-36 Automated erythrocyte distribution width ratio 13.0 % 10.0-14.5 Automated blood platelet count (count/volume) 201 10*3/uL 130-400 Automated blood platelet mean volume measurement 11.6 [foz_us] 7.4-10.4 Automated blood neutrophils/100 leukocytes 77 % 42-75 Automated blood lymphocytes/100 leukocytes 14 % 12-44 Blood monocytes/100 leukocytes 8 % 0-12 Automated blood eosinophils/100 leukocytes 1 % 0-10 Automated blood basophils/100 leukocytes 0 % 0-10 Blood neutrophils automated count (number/volume) 7.6 10*3 1.8-7.8 Blood lymphocytes automated count (number/volume) 1.4 10*3 1.0-4.0 Blood monocytes automated count (number/volume) 0.8 10*3 0.0-1.0 Automated eosinophil count 0.1 10*3/uL 0.0-0.3 Automated blood basophil count (count/volume) 0.0 10*3/uL 0.0-0.1 Capillary blood glucose measurement by glucometer (mass/volume) - 06/10/17 10: 55 Capillary blood glucose measurement by glucometer (mass/volume) 132 mg/dL 70-110 Whole blood basic metabolic panel - 06/10/17 11:05 Serum or plasma sodium measurement (moles/volume) 135 mmol/L 135-145 Serum or plasma potassium measurement (moles/volume) 5.2 mmol/L 3.6-5.0 Serum or plasma chloride measurement (moles/volume) 106 mmol/L 98-107 Carbon dioxide 24 mmol/L 21-32 Serum or plasma anion gap determination (moles/volume) 5 mmol/L 5-14 Serum or plasma urea nitrogen measurement (mass/volume) 21 mg/dL 7-18 Serum or plasma creatinine measurement (mass/volume) 0.99 mg/dL 0.60-1.30 Serum or plasma urea nitrogen/creatinine mass ratio 21 NRG Serum or plasma creatinine measurement with calculation of estimated glomerular filtration rate 57 NRG Serum or plasma glucose measurement (mass/volume) 130 mg/dL 70-105 Serum or plasma calcium measurement (mass/volume) 8.5 mg/dL 8.5-10.1 Serum or plasma phosphate measurement (mass/volume) - 06/10/17 11:05 Serum or plasma phosphate measurement (mass/volume) 2.0 mg/dL 2.3-4.7 Magnesium - 06/10/17 11:05 Magnesium 2.5 mg/dL 1.8-2.4 Serum or plasma lithium measurement (moles/volume) - 06/10/17 11:05 BNP level 163.2 pg/mL <100.0 Capillary blood glucose measurement by glucometer (mass/volume) - 06/10/17 16: 43 Capillary blood glucose measurement by glucometer (mass/volume) 173 mg/dL 70-110 Capillary blood glucose measurement by glucometer (mass/volume) - 06/10/17 20: 22 Capillary blood glucose measurement by glucometer (mass/volume) 198 mg/dL 70-110 Capillary blood glucose measurement by glucometer (mass/volume) - 06/11/17 05: 16 Capillary blood glucose measurement by glucometer (mass/volume) 127 mg/dL 70-110 Complete blood count (CBC) with automated white blood cell (WBC) differential - 06/11/17 05:46 Blood leukocytes automated count (number/volume) 9.3 10*3/uL 4.3-11.0 Blood erythrocytes automated count (number/volume) 3.02 10*6/uL 4.35-5.85 Venous blood hemoglobin measurement (mass/volume) 9.1 g/dL 11.5-16.0 Blood hematocrit (volume fraction) 29 % 35-52 Automated erythrocyte mean corpuscular volume 97 [foz_us] 80-99 Automated erythrocyte mean corpuscular hemoglobin (mass per erythrocyte) 30 pg 25-34 Automated erythrocyte mean corpuscular hemoglobin concentration measurement ( mass/volume) 31 g/dL 32-36 Automated erythrocyte distribution width ratio 13.3 % 10.0-14.5 Automated blood platelet count (count/volume) 224 10*3/uL 130-400 Automated blood platelet mean volume measurement 12.0 [foz_us] 7.4-10.4 Automated blood neutrophils/100 leukocytes 68 % 42-75 Automated blood lymphocytes/100 leukocytes 21 % 12-44 Blood monocytes/100 leukocytes 9 % 0-12 Automated blood eosinophils/100 leukocytes 2 % 0-10 Automated blood basophils/100 leukocytes 0 % 0-10 Blood neutrophils automated count (number/volume) 6.3 10*3 1.8-7.8 Blood lymphocytes automated count (number/volume) 2.0 10*3 1.0-4.0 Blood monocytes automated count (number/volume) 0.8 10*3 0.0-1.0 Automated eosinophil count 0.2 10*3/uL 0.0-0.3 Automated blood basophil count (count/volume) 0.0 10*3/uL 0.0-0.1 Whole blood basic metabolic panel - 06/11/17 05:46 Serum or plasma sodium measurement (moles/volume) 137 mmol/L 135-145 Serum or plasma potassium measurement (moles/volume) 5.2 mmol/L 3.6-5.0 Serum or plasma chloride measurement (moles/volume) 106 mmol/L 98-107 Carbon dioxide 21 mmol/L 21-32 Serum or plasma anion gap determination (moles/volume) 10 mmol/L 5-14 Serum or plasma urea nitrogen measurement (mass/volume) 20 mg/dL 7-18 Serum or plasma creatinine measurement (mass/volume) 0.97 mg/dL 0.60-1.30 Serum or plasma urea nitrogen/creatinine mass ratio 21 NRG Serum or plasma creatinine measurement with calculation of estimated glomerular filtration rate 58 NRG Serum or plasma glucose measurement (mass/volume) 106 mg/dL 70-105 Serum or plasma calcium measurement (mass/volume) 8.8 mg/dL 8.5-10.1 Serum or plasma phosphate measurement (mass/volume) - 06/11/17 05:46 Serum or plasma phosphate measurement (mass/volume) 2.3 mg/dL 2.3-4.7 Magnesium - 06/11/17 05:46 Magnesium 2.5 mg/dL 1.8-2.4 PT panel in platelet poor plasma by coagulation assay - 06/11/17 07:13 Prothrombin time (PT) in platelet poor plasma by coagulation assay 14.9 s 12.2-14.7 INR in platelet poor plasma or blood by coagulation assay 1.2 0.8-1.4 Activated partial thromboplastin time (aPTT) in platelet poor plasma bycoagulation assay - 06/11/17 07:13 Activated partial thromboplastin time (aPTT) in platelet poor plasma bycoagulation assay 53 s 24-35 Capillary blood glucose measurement by glucometer (mass/volume) - 06/11/17 11: 04 Capillary blood glucose measurement by glucometer (mass/volume) 139 mg/dL 70-110 Capillary blood glucose measurement by glucometer (mass/volume) - 06/11/17 16: 41 Capillary blood glucose measurement by glucometer (mass/volume) 106 mg/dL 70-110 Capillary blood glucose measurement by glucometer (mass/volume) - 06/11/17 20: 38 Capillary blood glucose measurement by glucometer (mass/volume) 189 mg/dL 70-110 Complete blood count (CBC) with automated white blood cell (WBC) differential - 06/12/17 04:32 Blood leukocytes automated count (number/volume) 9.1 10*3/uL 4.3-11.0 Blood erythrocytes automated count (number/volume) 2.87 10*6/uL 4.35-5.85 Venous blood hemoglobin measurement (mass/volume) 8.6 g/dL 11.5-16.0 Blood hematocrit (volume fraction) 28 % 35-52 Automated erythrocyte mean corpuscular volume 96 [foz_us] 80-99 Automated erythrocyte mean corpuscular hemoglobin (mass per erythrocyte) 30 pg 25-34 Automated erythrocyte mean corpuscular hemoglobin concentration measurement ( mass/volume) 31 g/dL 32-36 Automated erythrocyte distribution width ratio 13.1 % 10.0-14.5 Automated blood platelet count (count/volume) 261 10*3/uL 130-400 Automated blood platelet mean volume measurement 11.6 [foz_us] 7.4-10.4 Automated blood neutrophils/100 leukocytes 69 % 42-75 Automated blood lymphocytes/100 leukocytes 19 % 12-44 Blood monocytes/100 leukocytes 9 % 0-12 Automated blood eosinophils/100 leukocytes 3 % 0-10 Automated blood basophils/100 leukocytes 0 % 0-10 Blood neutrophils automated count (number/volume) 6.3 10*3 1.8-7.8 Blood lymphocytes automated count (number/volume) 1.7 10*3 1.0-4.0 Blood monocytes automated count (number/volume) 0.8 10*3 0.0-1.0 Automated eosinophil count 0.3 10*3/uL 0.0-0.3 Automated blood basophil count (count/volume) 0.0 10*3/uL 0.0-0.1 Serum or plasma phosphate measurement (mass/volume) - 06/12/17 04:32 Serum or plasma phosphate measurement (mass/volume) 2.6 mg/dL 2.3-4.7 Whole blood basic metabolic panel - 06/12/17 04:32 Serum or plasma sodium measurement (moles/volume) 138 mmol/L 135-145 Serum or plasma potassium measurement (moles/volume) 4.5 mmol/L 3.6-5.0 Serum or plasma chloride measurement (moles/volume) 104 mmol/L 98-107 Carbon dioxide 25 mmol/L 21-32 Serum or plasma anion gap determination (moles/volume) 9 mmol/L 5-14 Serum or plasma urea nitrogen measurement (mass/volume) 18 mg/dL 7-18 Serum or plasma creatinine measurement (mass/volume) 0.94 mg/dL 0.60-1.30 Serum or plasma urea nitrogen/creatinine mass ratio 19 NRG Serum or plasma creatinine measurement with calculation of estimated glomerular filtration rate 60 NRG Serum or plasma glucose measurement (mass/volume) 54 mg/dL 70-105 Serum or plasma calcium measurement (mass/volume) 8.9 mg/dL 8.5-10.1 Magnesium - 06/12/17 04:32 Magnesium 2.4 mg/dL 1.8-2.4 Capillary blood glucose measurement by glucometer (mass/volume) - 06/12/17 06: 50 Capillary blood glucose measurement by glucometer (mass/volume) 125 mg/dL 70-110 Capillary blood glucose measurement by glucometer (mass/volume) - 06/12/17 10: 54 Capillary blood glucose measurement by glucometer (mass/volume) 109 mg/dL 70-110 Automated blood complete blood count (hemogram) panel - 07/08/17 07:28 Blood leukocytes automated count (number/volume) 7.8 10*3/uL 4.3-11.0 Blood erythrocytes automated count (number/volume) 3.71 10*6/uL 4.35-5.85 Venous blood hemoglobin measurement (mass/volume) 11.1 g/dL 11.5-16.0 Blood hematocrit (volume fraction) 35 % 35-52 Automated erythrocyte mean corpuscular volume 93 [foz_us] 80-99 Automated erythrocyte mean corpuscular hemoglobin (mass per erythrocyte) 30 pg 25-34 Automated erythrocyte mean corpuscular hemoglobin concentration measurement ( mass/volume) 32 g/dL 32-36 Automated erythrocyte distribution width ratio 13.8 % 10.0-14.5 Automated blood platelet count (count/volume) 218 10*3/uL 130-400 Automated blood platelet mean volume measurement 11.6 [foz_us] 7.4-10.4 Complete urinalysis with reflex to culture - 07/08/17 07:28 Urine color determination YELLOW NRG Urine clarity determination VERY CLOUDY NRG Urine pH measurement by test strip 5 5-9 Specific gravity of urine by test strip 1.015 1.016- 1.022 Urine protein assay by test strip, semi-quantitative 2+ NEGATIVE Urine glucose detection by automated test strip NEGATIVE NEGATIVE Erythrocytes detection in urine sediment by light microscopy 1+ NEGATIVE Urine ketones detection by automated test strip NEGATIVE NEGATIVE Urine nitrite detection by test strip NEGATIVE NEGATIVE Urine total bilirubin detection by test strip NEGATIVE NEGATIVE Urine urobilinogen measurement by automated test strip (mass/volume) NORMAL NORMAL Urine leukocyte esterase detection by dipstick NEGATIVE NEGATIVE Automated urine sediment erythrocyte count by microscopy (number/high power field) RARE NRG Automated urine sediment leukocyte count by microscopy (number/high power field ) NONE NRG Bacteria detection in urine sediment by light microscopy MODERATE NRG Squamous epithelial cells detection in urine sediment by light microscopy >50 NRG Crystals detection in urine sediment by light microscopy NONE NRG Casts detection in urine sediment by light microscopy NONE NRG Mucus detection in urine sediment by light microscopy NEGATIVE NRG Complete urinalysis with reflex to culture NO NRG PT panel in platelet poor plasma by coagulation assay - 07/08/17 07:28 Prothrombin time (PT) in platelet poor plasma by coagulation assay 12.8 s 12.2-14.7 INR in platelet poor plasma or blood by coagulation assay 1.0 0.8-1.4 Activated partial thromboplastin time (aPTT) in platelet poor plasma bycoagulation assay - 07/08/17 07:28 Activated partial thromboplastin time (aPTT) in platelet poor plasma bycoagulation assay 27 s 24-35 Comprehensive metabolic panel - 07/08/17 07:28 Serum or plasma sodium measurement (moles/volume) 138 mmol/L 135-145 Serum or plasma potassium measurement (moles/volume) 4.4 mmol/L 3.6-5.0 Serum or plasma chloride measurement (moles/volume) 103 mmol/L 98-107 Carbon dioxide 26 mmol/L 21-32 Serum or plasma anion gap determination (moles/volume) 9 mmol/L 5-14 Serum or plasma urea nitrogen measurement (mass/volume) 18 mg/dL 7-18 Serum or plasma creatinine measurement (mass/volume) 1.00 mg/dL 0.60-1.30 Serum or plasma urea nitrogen/creatinine mass ratio 18 NRG Serum or plasma creatinine measurement with calculation of estimated glomerular filtration rate 56 NRG Serum or plasma glucose measurement (mass/volume) 130 mg/dL 70-105 Serum or plasma calcium measurement (mass/volume) 8.9 mg/dL 8.5-10.1 Serum or plasma total bilirubin measurement (mass/volume) 0.3 mg/dL 0.1-1.0 Serum or plasma alkaline phosphatase measurement (enzymatic activity/volume) 100 U/L 40-136 Serum or plasma aspartate aminotransferase measurement (enzymatic activity/ volume) 14 U/L 5-34 Serum or plasma alanine aminotransferase measurement (enzymatic activity/volume ) 12 U/L 0-55 Serum or plasma protein measurement (mass/volume) 7.6 g/dL 6.4-8.2 Serum or plasma albumin measurement (mass/volume) 3.7 g/dL 3.2-4.5 Lipid 1996 panel - 07/08/17 07:28 Serum or plasma triglyceride measurement (mass/volume) 179 mg/dL <150 Serum or plasma cholesterol measurement (mass/volume) 209 mg/dL < 200 Serum or plasma cholesterol in HDL measurement (mass/volume) 51 mg/ dL 40-60 Cholesterol in LDL [mass/volume] in serum or plasma by direct assay 129 mg/dL 1-129 Serum or plasma cholesterol in VLDL measurement (mass/volume) 36 mg/ dL 5-40 Methicillin resistant Staphylococcus aureus (MRSA) screening culture - 07:28 Methicillin resistant Staphylococcus aureus (MRSA) screening culture NEG NRG Complete blood count (CBC) with automated white blood cell (WBC) differential - 07/12/17 12:50 Blood leukocytes automated count (number/volume) 10.1 10*3/uL 4.3-11.0 Blood erythrocytes automated count (number/volume) 2.72 10*6/uL 4.35-5.85 Venous blood hemoglobin measurement (mass/volume) 8.2 g/dL 11.5-16.0 Blood hematocrit (volume fraction) 26 % 35-52 Automated erythrocyte mean corpuscular volume 96 [foz_us] 80-99 Automated erythrocyte mean corpuscular hemoglobin (mass per erythrocyte) 30 pg 25-34 Automated erythrocyte mean corpuscular hemoglobin concentration measurement ( mass/volume) 31 g/dL 32-36 Automated erythrocyte distribution width ratio 14.2 % 10.0-14.5 Automated blood platelet count (count/volume) 233 10*3/uL 130-400 Automated blood platelet mean volume measurement 12.3 [foz_us] 7.4-10.4 Automated blood neutrophils/100 leukocytes 74 % 42-75 Automated blood lymphocytes/100 leukocytes 18 % 12-44 Blood monocytes/100 leukocytes 5 % 0-12 Automated blood eosinophils/100 leukocytes 3 % 0-10 Automated blood basophils/100 leukocytes 0 % 0-10 Blood neutrophils automated count (number/volume) 7.5 10*3 1.8-7.8 Blood lymphocytes automated count (number/volume) 1.8 10*3 1.0-4.0 Blood monocytes automated count (number/volume) 0.5 10*3 0.0-1.0 Automated eosinophil count 0.3 10*3/uL 0.0-0.3 Automated blood basophil count (count/volume) 0.0 10*3/uL 0.0-0.1 Blood lactic acid measurement (moles/volume) - 07/12/17 12:50 Blood lactic acid measurement (moles/volume) 1.43 mmol/L 0.50-2.00 Comprehensive metabolic panel - 07/12/17 12:50 Serum or plasma sodium measurement (moles/volume) 134 mmol/L 135-145 Serum or plasma potassium measurement (moles/volume) 5.9 mmol/L 3.6-5.0 Serum or plasma chloride measurement (moles/volume) 104 mmol/L 98-107 Carbon dioxide 22 mmol/L 21-32 Serum or plasma anion gap determination (moles/volume) 8 mmol/L 5-14 Serum or plasma urea nitrogen measurement (mass/volume) 33 mg/dL 7-18 Serum or plasma creatinine measurement (mass/volume) 1.62 mg/dL 0.60-1.30 Serum or plasma urea nitrogen/creatinine mass ratio 20 NRG Serum or plasma creatinine measurement with calculation of estimated glomerular filtration rate 32 NRG Serum or plasma glucose measurement (mass/volume) 221 mg/dL 70-105 Serum or plasma calcium measurement (mass/volume) 8.5 mg/dL 8.5-10.1 Serum or plasma total bilirubin measurement (mass/volume) 0.4 mg/dL 0.1-1.0 Serum or plasma alkaline phosphatase measurement (enzymatic activity/volume) 105 U/L 40-136 Serum or plasma aspartate aminotransferase measurement (enzymatic activity/ volume) 12 U/L 5-34 Serum or plasma alanine aminotransferase measurement (enzymatic activity/volume ) 12 U/L 0-55 Serum or plasma protein measurement (mass/volume) 7.2 g/dL 6.4-8.2 Serum or plasma albumin measurement (mass/volume) 3.6 g/dL 3.2-4.5 Bacterial blood culture - 07/12/17 12:50 Bacterial blood culture NG NRG Complete urinalysis with reflex to culture - 07/12/17 13:12 Urine color determination YELLOW NRG Urine clarity determination CLEAR NRG Urine pH measurement by test strip 5 5-9 Specific gravity of urine by test strip 1.025 1.016- 1.022 Urine protein assay by test strip, semi-quantitative 1+ NEGATIVE Urine glucose detection by automated test strip NEGATIVE NEGATIVE Erythrocytes detection in urine sediment by light microscopy NEGATIVE NEGATIVE Urine ketones detection by automated test strip NEGATIVE NEGATIVE Urine nitrite detection by test strip NEGATIVE NEGATIVE Urine total bilirubin detection by test strip NEGATIVE NEGATIVE Urine urobilinogen measurement by automated test strip (mass/volume) NORMAL NORMAL Urine leukocyte esterase detection by dipstick 1+ NEGATIVE Automated urine sediment erythrocyte count by microscopy (number/high power field) NONE NRG Automated urine sediment leukocyte count by microscopy (number/high power field ) [HPF] NRG Bacteria detection in urine sediment by light microscopy TRACE NRG Squamous epithelial cells detection in urine sediment by light microscopy 0-2 NRG Crystals detection in urine sediment by light microscopy PRESENT NRG Casts detection in urine sediment by light microscopy NONE NRG Mucus detection in urine sediment by light microscopy NEGATIVE NRG Complete urinalysis with reflex to culture NO NRG Uric acid crystals detection in urine sediment by light microscopy RARE NRG Bacterial blood culture - 07/12/17 13:15 Bacterial blood culture NG NRG Complete blood count (CBC) with automated white blood cell (WBC) differential - 07/14/17 08:05 Blood leukocytes automated count (number/volume) 8.1 10*3/uL 4.3-11.0 Blood erythrocytes automated count (number/volume) 2.78 10*6/uL 4.35-5.85 Venous blood hemoglobin measurement (mass/volume) 8.4 g/dL 11.5-16.0 Blood hematocrit (volume fraction) 27 % 35-52 Automated erythrocyte mean corpuscular volume 95 [foz_us] 80-99 Automated erythrocyte mean corpuscular hemoglobin (mass per erythrocyte) 30 pg 25-34 Automated erythrocyte mean corpuscular hemoglobin concentration measurement ( mass/volume) 32 g/dL 32-36 Automated erythrocyte distribution width ratio 13.7 % 10.0-14.5 Automated blood platelet count (count/volume) 245 10*3/uL 130-400 Automated blood platelet mean volume measurement 11.2 [foz_us] 7.4-10.4 Automated blood neutrophils/100 leukocytes 76 % 42-75 Automated blood lymphocytes/100 leukocytes 16 % 12-44 Blood monocytes/100 leukocytes 6 % 0-12 Automated blood eosinophils/100 leukocytes 2 % 0-10 Automated blood basophils/100 leukocytes 0 % 0-10 Blood neutrophils automated count (number/volume) 6.1 10*3 1.8-7.8 Blood lymphocytes automated count (number/volume) 1.3 10*3 1.0-4.0 Blood monocytes automated count (number/volume) 0.5 10*3 0.0-1.0 Automated eosinophil count 0.2 10*3/uL 0.0-0.3 Automated blood basophil count (count/volume) 0.0 10*3/uL 0.0-0.1 Comprehensive metabolic panel - 07/14/17 08:05 Serum or plasma sodium measurement (moles/volume) 137 mmol/L 135-145 Serum or plasma potassium measurement (moles/volume) 5.4 mmol/L 3.6-5.0 Serum or plasma chloride measurement (moles/volume) 103 mmol/L 98-107 Carbon dioxide 28 mmol/L 21-32 Serum or plasma anion gap determination (moles/volume) 6 mmol/L 5-14 Serum or plasma urea nitrogen measurement (mass/volume) 23 mg/dL 7-18 Serum or plasma creatinine measurement (mass/volume) 1.09 mg/dL 0.60-1.30 Serum or plasma urea nitrogen/creatinine mass ratio 21 NRG Serum or plasma creatinine measurement with calculation of estimated glomerular filtration rate 51 NRG Serum or plasma glucose measurement (mass/volume) 208 mg/dL 70-105 Serum or plasma calcium measurement (mass/volume) 8.9 mg/dL 8.5-10.1 Serum or plasma total bilirubin measurement (mass/volume) 0.6 mg/dL 0.1-1.0 Serum or plasma alkaline phosphatase measurement (enzymatic activity/volume) 97 U/L 40-136 Serum or plasma aspartate aminotransferase measurement (enzymatic activity/ volume) 14 U/L 5-34 Serum or plasma alanine aminotransferase measurement (enzymatic activity/volume ) 13 U/L 0-55 Serum or plasma protein measurement (mass/volume) 7.1 g/dL 6.4-8.2 Serum or plasma albumin measurement (mass/volume) 3.6 g/dL 3.2-4.5 Serum or plasma C reactive protein measurement (mass/volume) - 07/14/17 08:05 Serum or plasma C reactive protein measurement (mass/volume) 4.03 mg /dL 0.00-0.50 Complete urinalysis with reflex to culture - 07/14/17 09:35 Urine color determination YELLOW NRG Urine clarity determination CLEAR NRG Urine pH measurement by test strip 5 5-9 Specific gravity of urine by test strip 1.010 1.016- 1.022 Urine protein assay by test strip, semi-quantitative 1+ NEGATIVE Urine glucose detection by automated test strip 3+ NEGATIVE Erythrocytes detection in urine sediment by light microscopy NEGATIVE NEGATIVE Urine ketones detection by automated test strip NEGATIVE NEGATIVE Urine nitrite detection by test strip NEGATIVE NEGATIVE Urine total bilirubin detection by test strip NEGATIVE NEGATIVE Urine urobilinogen measurement by automated test strip (mass/volume) NORMAL NORMAL Urine leukocyte esterase detection by dipstick NEGATIVE NEGATIVE Automated urine sediment erythrocyte count by microscopy (number/high power field) NONE NRG Automated urine sediment leukocyte count by microscopy (number/high power field ) NONE NRG Bacteria detection in urine sediment by light microscopy NEGATIVE NRG Squamous epithelial cells detection in urine sediment by light microscopy RARE NRG Crystals detection in urine sediment by light microscopy NONE NRG Casts detection in urine sediment by light microscopy NONE NRG Mucus detection in urine sediment by light microscopy NEGATIVE NRG Complete urinalysis with reflex to culture NO NRG Capillary blood glucose measurement by glucometer (mass/volume) - 07/14/17 20: 47 Capillary blood glucose measurement by glucometer (mass/volume) 206 mg/dL 70-110 Capillary blood glucose measurement by glucometer (mass/volume) - 07/15/17 05: 30 Capillary blood glucose measurement by glucometer (mass/volume) 101 mg/dL 70-110 Complete blood count (CBC) with automated white blood cell (WBC) differential - 07/15/17 05:30 Blood leukocytes automated count (number/volume) 8.9 10*3/uL 4.3-11.0 Blood erythrocytes automated count (number/volume) 2.61 10*6/uL 4.35-5.85 Venous blood hemoglobin measurement (mass/volume) 7.9 g/dL 11.5-16.0 Blood hematocrit (volume fraction) 25 % 35-52 Automated erythrocyte mean corpuscular volume 95 [foz_us] 80-99 Automated erythrocyte mean corpuscular hemoglobin (mass per erythrocyte) 30 pg 25-34 Automated erythrocyte mean corpuscular hemoglobin concentration measurement ( mass/volume) 32 g/dL 32-36 Automated erythrocyte distribution width ratio 13.5 % 10.0-14.5 Automated blood platelet count (count/volume) 254 10*3/uL 130-400 Automated blood platelet mean volume measurement 11.8 [foz_us] 7.4-10.4 Automated blood neutrophils/100 leukocytes 64 % 42-75 Automated blood lymphocytes/100 leukocytes 24 % 12-44 Blood monocytes/100 leukocytes 8 % 0-12 Automated blood eosinophils/100 leukocytes 3 % 0-10 Automated blood basophils/100 leukocytes 0 % 0-10 Blood neutrophils automated count (number/volume) 5.7 10*3 1.8-7.8 Blood lymphocytes automated count (number/volume) 2.1 10*3 1.0-4.0 Blood monocytes automated count (number/volume) 0.7 10*3 0.0-1.0 Automated eosinophil count 0.3 10*3/uL 0.0-0.3 Automated blood basophil count (count/volume) 0.0 10*3/uL 0.0-0.1 Comprehensive metabolic panel - 07/15/17 05:30 Serum or plasma sodium measurement (moles/volume) 138 mmol/L 135-145 Serum or plasma potassium measurement (moles/volume) 5.0 mmol/L 3.6-5.0 Serum or plasma chloride measurement (moles/volume) 104 mmol/L 98-107 Carbon dioxide 27 mmol/L 21-32 Serum or plasma anion gap determination (moles/volume) 7 mmol/L 5-14 Serum or plasma urea nitrogen measurement (mass/volume) 18 mg/dL 7-18 Serum or plasma creatinine measurement (mass/volume) 0.96 mg/dL 0.60-1.30 Serum or plasma urea nitrogen/creatinine mass ratio 19 NRG Serum or plasma creatinine measurement with calculation of estimated glomerular filtration rate 59 NRG Serum or plasma glucose measurement (mass/volume) 103 mg/dL 70-105 Serum or plasma calcium measurement (mass/volume) 8.6 mg/dL 8.5-10.1 Serum or plasma total bilirubin measurement (mass/volume) 0.6 mg/dL 0.1-1.0 Serum or plasma alkaline phosphatase measurement (enzymatic activity/volume) 87 U/L 40-136 Serum or plasma aspartate aminotransferase measurement (enzymatic activity/ volume) 11 U/L 5-34 Serum or plasma alanine aminotransferase measurement (enzymatic activity/volume ) 9 U/L 0-55 Serum or plasma protein measurement (mass/volume) 6.5 g/dL 6.4-8.2 Serum or plasma albumin measurement (mass/volume) 3.1 g/dL 3.2-4.5 IRON TEST - 07/15/17 05:30 Serum or plasma iron measurement (mass/volume) 40 % 35- 180 Capillary blood glucose measurement by glucometer (mass/volume) - 07/15/17 10: 59 Capillary blood glucose measurement by glucometer (mass/volume) 157 mg/dL 70-110 Capillary blood glucose measurement by glucometer (mass/volume) - 07/15/17 16: 21 Capillary blood glucose measurement by glucometer (mass/volume) 266 mg/dL 70-110 Complete blood count (CBC) with automated white blood cell (WBC) differential - 07/16/17 05:08 Blood leukocytes automated count (number/volume) 8.6 10*3/uL 4.3-11.0 Blood erythrocytes automated count (number/volume) 2.53 10*6/uL 4.35-5.85 Venous blood hemoglobin measurement (mass/volume) 7.4 g/dL 11.5-16.0 Blood hematocrit (volume fraction) 25 % 35-52 Automated erythrocyte mean corpuscular volume 98 [foz_us] 80-99 Automated erythrocyte mean corpuscular hemoglobin (mass per erythrocyte) 29 pg 25-34 Automated erythrocyte mean corpuscular hemoglobin concentration measurement ( mass/volume) 30 g/dL 32-36 Automated erythrocyte distribution width ratio 14.1 % 10.0-14.5 Automated blood platelet count (count/volume) 258 10*3/uL 130-400 Automated blood platelet mean volume measurement 11.7 [foz_us] 7.4-10.4 Automated blood neutrophils/100 leukocytes 59 % 42-75 Automated blood lymphocytes/100 leukocytes 27 % 12-44 Blood monocytes/100 leukocytes 10 % 0-12 Automated blood eosinophils/100 leukocytes 4 % 0-10 Automated blood basophils/100 leukocytes 1 % 0-10 Blood neutrophils automated count (number/volume) 5.1 10*3 1.8-7.8 Blood lymphocytes automated count (number/volume) 2.3 10*3 1.0-4.0 Blood monocytes automated count (number/volume) 0.9 10*3 0.0-1.0 Automated eosinophil count 0.3 10*3/uL 0.0-0.3 Automated blood basophil count (count/volume) 0.0 10*3/uL 0.0-0.1 Comprehensive metabolic panel - 07/16/17 05:08 Serum or plasma sodium measurement (moles/volume) 140 mmol/L 135-145 Serum or plasma potassium measurement (moles/volume) 5.2 mmol/L 3.6-5.0 Serum or plasma chloride measurement (moles/volume) 105 mmol/L 98-107 Carbon dioxide 29 mmol/L 21-32 Serum or plasma anion gap determination (moles/volume) 6 mmol/L 5-14 Serum or plasma urea nitrogen measurement (mass/volume) 21 mg/dL 7-18 Serum or plasma creatinine measurement (mass/volume) 1.22 mg/dL 0.60-1.30 Serum or plasma urea nitrogen/creatinine mass ratio 17 NRG Serum or plasma creatinine measurement with calculation of estimated glomerular filtration rate 45 NRG Serum or plasma glucose measurement (mass/volume) 84 mg/dL 70-105 Serum or plasma calcium measurement (mass/volume) 8.4 mg/dL 8.5-10.1 Serum or plasma total bilirubin measurement (mass/volume) 0.6 mg/dL 0.1-1.0 Serum or plasma alkaline phosphatase measurement (enzymatic activity/volume) 79 U/L 40-136 Serum or plasma aspartate aminotransferase measurement (enzymatic activity/ volume) 10 U/L 5-34 Serum or plasma alanine aminotransferase measurement (enzymatic activity/volume ) 9 U/L 0-55 Serum or plasma protein measurement (mass/volume) 6.2 g/dL 6.4-8.2 Serum or plasma albumin measurement (mass/volume) 3.0 g/dL 3.2-4.5 Capillary blood glucose measurement by glucometer (mass/volume) - 07/16/17 05: 14 Capillary blood glucose measurement by glucometer (mass/volume) 84 mg/dL 70-110 Capillary blood glucose measurement by glucometer (mass/volume) - 07/16/17 11: 03 Capillary blood glucose measurement by glucometer (mass/volume) 122 mg/dL 70-110 Capillary blood glucose measurement by glucometer (mass/volume) - 05/25/18 06: 46 Capillary blood glucose measurement by glucometer (mass/volume) 75 mg/dL 70-110 Encounters ACCT No. Visit Date/Time Discharge Status Pt. Type Provider Facility Loc./Unit Complaint [id number] 09/16/2011 12:58:00 09/16/2011 23:59:59 CLS Outpatient SIMON LOVE DDS [id number] 02/23/2015 03:59:02 ACT Document Registration [id number] 06/08/2018 06:39:00 06/08/2018 13:37:00 DIS Outpatient KIAN LA MD [facility] PREOP CATARACT LEFT [id number] 05/25/2018 06:32:00 05/25/2018 08:10:00 DIS Outpatient KIAN LA MD [facility] SDC CATARACT RIGHT EYE [id number] 05/24/2018 05:48:00 05/24/2018 13:32:00 DIS Outpatient KIAN LA MD [facility] PREOP CATARACT RIGHT EYE [id number] 02/14/2018 14:12:00 02/14/2018 23:59:59 CLS Outpatient ZOIE SWIFT MD [facility] RAD CERVICAL SPINE STENOSIS [id number] 02/02/2018 10:09:00 02/02/2018 23:59:59 CLS Outpatient JAMISON MARTINEZ, ZOIE Odom [facility] RAD ATAXIA [id number] 02/02/2018 10:08:00 02/02/2018 23:59:59 CLS Outpatient MARIE LUNA DO [facility] RAD TREMOR [id number] 12/11/2017 10:40:00 12/11/2017 23:59:59 CLS Outpatient MARIE LUNA DO [facility] RAD TRAUMA [id number] 07/14/2017 11:35:00 07/16/2017 12:23:00 DIS Inpatient LAURA TELLEZ DO [facility] 4TH RT GROIN/LEG HEMATOMA [id number] 07/12/2017 12:21:00 07/12/2017 16:13:00 DIS Emergency KAROL MCCOY MD [facility] ER POST OP RT LEG PAIN, GROIN PAIN [id number] 07/08/2017 06:51:00 07/08/2017 13:40:00 DIS Outpatient ERIC MARTINEZ, Gema AVILES [facility] CATH L LE, CRITICAL LIMB ISCHEMIA [id number] 06/23/2017 15:48:00 06/23/2017 23:59:59 CLS Outpatient MARIE LUNA DO [facility] RAD J18.9 K09.02 [id number] 06/08/2017 11:11:00 06/12/2017 11:40:00 DIS Inpatient LUIS FELIPE MARTINEZ, MICHELINE Ribeiro [facility] 4TH R PNEUMONIA,SEVERE SEPSIS [id number] 06/09/2017 07:15:00 06/09/2017 23:59:59 CLS Preadmit ALEXANDRIA DURÁN MD [facility] RAD UPPER ABD PAIN [id number] 06/03/2017 11:12:00 06/03/2017 23:59:59 CLS Preadmit MARIE LUNA DO [facility] RAD M54.5 [id number] 12/22/2016 09:37:00 12/22/2016 23:59:59 CLS Outpatient MARIE LUNA DO [facility] RAD SCREENING [id number] 12/31/2015 09:35:00 12/31/2015 23:59:59 CLS Outpatient HARRISON BOYKIN MD [facility] RAD STONE [id number] 11/01/2015 13:40:00 11/01/2015 23:59:59 CLS Outpatient MARIE LUNA DO [facility] RAD RIGHT FLANK PAIN [id number] 10/02/2015 12:56:00 10/02/2015 23:59:59 CLS Outpatient JORGE QUIÑONES MD [facility] WOUNDCARE [id number] 02/22/2015 09:41:00 02/22/2015 12:00:00 DIS Outpatient JORGE QUIÑONES MD [facility] WOUNDCARE ABDOMINAL WOUND [id number] 02/15/2015 09:30:00 02/21/2015 00:01:00 DIS Outpatient JORGE QUIÑONES MD [facility] WOUNDCARE ABDOMINAL WOUND [id number] 01/11/2015 09:37:00 01/11/2015 23:59:59 CLS Outpatient JORGE QUIÑONES MD [facility] LAB DIABETIC FOOT ULCER, [id number] 11/23/2014 12:11:00 11/23/2014 23:59:59 CLS Outpatient JORGE QUIÑONES MD [facility] LAB ABD WOUND [id number] 11/11/2014 08:58:00 11/19/2014 15:30:00 DIS Inpatient MARIE LUNA DO [facility] 4TH ABSCESS ABD WALL [id number] 10/11/2014 11:42:00 10/11/2014 23:59:59 CLS Outpatient MARIE LUNA DO [facility] RAD PRE OP [id number] 03/09/2014 11:38:00 03/09/2014 23:59:59 CLS Outpatient MARIE LUNA DO [facility] RT DYSPNEA [id number] 03/09/2014 06:34:00 03/09/2014 23:59:59 CLS Outpatient MARIE LUNA DO [facility] CARD HTN,PREOP [id number] 05/18/2013 09:08:00 05/18/2013 23:59:59 CLS Outpatient JEREMY ESCAMILLA MARIE Mimi [facility] RAD LOWER EXT ARTERIAL OBSTRUCTION [id number] 01/17/2013 14:08:00 01/17/2013 23:59:59 CLS Outpatient [id number] 06/10/2018 10:30:00 PEN Preadmit ABHINAV MARTINEZ, KIAN Jack [facility] SDC LEFT CATARACT [id number] 10/11/2014 11:43:00 Document Registration [id number] 09/02/2012 08:05:00 Document Registration [id number] 08/12/2012 10:14:00 Document Registration [id number] 10/29/2011 11:07:00 Document Registration [id number] 10/03/2011 10:50:00 Document Registration [id number] 05/25/2011 10:17:00 Document Registration [id number] 05/07/2011 14:33:00 Document Registration [id number] 10/07/2010 10:43:00 Document Registration [id number] 10/05/2010 11:48:00 Document Registration [id number] 01/30/2010 13:07:00 Document Registration [id number] 04/22/2017 15:49:00 04/22/2017 17:25:00 DIS Outpatient Marc Vasquez [id number] 04/22/2017 16:28:40 Document Registration
== END 2018-06-10 09:52 | disposition home or self-care (01) ==
LOC: SDC 08:28
PROVIDERS: ATTEND Specialist
DX: H25.12 Age-related nuclear cataract, left eye (principal); I10 Essential (primary) hypertension; E11.9 Type 2 diabetes mellitus without complications; E66.01 Morbid (severe) obesity due to excess calories; Z68.42 Body mass index [BMI] 45.0-49.9, adult; I63.9 Cerebral infarction, unspecified; Z79.82 Long term (current) use of aspirin; Z79.4 Long term (current) use of insulin; Z87.891 Personal history of nicotine dependence

== ENCOUNTER → 2018-08-09 | Outpatient (CLI) | payer MEDICARE, MEDICAID ==
--- NOTE | 2018-08-09 09:48 | Diagnostic Imaging Report ---
Right upper extremity venous Doppler. Indication: Lymphedema. Spectral color flow imaging of the deep venous system was performed. There are no prior studies available for comparison. There is generally good blood flow and compressibility at all levels. There is no evidence for a deep venous thrombosis. Impression: There is no evidence for deep venous stenosis of the right upper extremity. Dictated by: Dictated on workstation # [id number]
== END ==
LOC: RAD 07:38
PROVIDERS: ATTEND Internal Medicine
DX: I89.0 Lymphedema, not elsewhere classified (principal)

== ENCOUNTER → 2018-09-07 | Outpatient (CLI) | payer MEDICARE, MEDICAID | LOC: WOUNDCARE 12:07 | PROVIDERS: ATTEND Surgery | DX: E11.621 Type 2 diabetes mellitus with foot ulcer (principal); L97.522 Non-pressure chronic ulcer of other part of left foot with fat layer exposed; L97.422 Non-pressure chronic ulcer of left heel and midfoot with fat layer exposed; E11.42 Type 2 diabetes mellitus with diabetic polyneuropathy; I89.0 Lymphedema, not elsewhere classified; E66.01 Morbid (severe) obesity due to excess calories; Z68.41 Body mass index [BMI] 40.0-44.9, adult | CPT/HCPCS: 11042 ==

== ENCOUNTER → 2018-09-08 | Outpatient (CLI) | payer MEDICARE, MEDICAID ==
[2018-09-08 12:34] LABS: BASOPHILS % (AUTO) 0 % (0-10); EOSINOPHILS # (AUTO) 0.2 10^3/uL (0.0-0.3); EOSINOPHILS % (AUTO) 3 % (0-10); HEMATOCRIT 35 % (35-52); LYMPHOCYTES # (AUTO) 2.4 X 10^3 (1.0-4.0); LYMPHOCYTES % (AUTO) 30 % (12-44); MEAN CORPUSCULAR HEMOGLOBIN 30 PG (25-34); MEAN CORPUSCULAR HGB CONC 32 G/DL (32-36); MEAN CORPUSCULAR VOLUME 95 FL (80-99); MEAN PLATELET VOLUME 11.3 FL (7.4-10.4); MONOCYTES # (AUTO) 0.5 X 10^3 (0.0-1.0); MONOCYTES % (AUTO) 6 % (0-12); NEUTROPHILS % (AUTO) 61 % (42-75); PLATELET COUNT 277 10^3/uL (130-400); RED BLOOD COUNT 3.65 10^6/uL (4.35-5.85); RED CELL DISTRIBUTION WIDTH 12.9 % (10.0-14.5); WHITE BLOOD COUNT 8.2 10^3/uL (4.3-11.0)
[2018-09-08 12:53] LABS: BILIRUBIN,TOTAL 0.3 MG/DL (0.1-1.0); CALCIUM 8.7 MG/DL (8.5-10.1); CREATININE SERUM 1.37 MG/DL (0.60-1.30); POTASSIUM 5.4 MMOL/L (3.6-5.0); TOTAL PROTEIN 7.6 GM/DL (6.4-8.2)
== END ==
LOC: LAB 12:18
PROVIDERS: ATTEND Surgery
DX: E11.621 Type 2 diabetes mellitus with foot ulcer (principal); E11.42 Type 2 diabetes mellitus with diabetic polyneuropathy; L97.522 Non-pressure chronic ulcer of other part of left foot with fat layer exposed; L97.422 Non-pressure chronic ulcer of left heel and midfoot with fat layer exposed; I89.0 Lymphedema, not elsewhere classified; E66.01 Morbid (severe) obesity due to excess calories
CPT/HCPCS: 36415; 80053; 83036; 85025

== ENCOUNTER → 2018-09-12 | Outpatient (CLI) | payer MEDICARE, MEDICAID | LOC: WOUNDCARE 09:52 | PROVIDERS: ATTEND Surgery | DX: E11.621 Type 2 diabetes mellitus with foot ulcer (principal); L97.422 Non-pressure chronic ulcer of left heel and midfoot with fat layer exposed; L97.522 Non-pressure chronic ulcer of other part of left foot with fat layer exposed; E11.42 Type 2 diabetes mellitus with diabetic polyneuropathy; M14.672 Charcot's joint, left ankle and foot; I89.0 Lymphedema, not elsewhere classified; E66.01 Morbid (severe) obesity due to excess calories; Z68.41 Body mass index [BMI] 40.0-44.9, adult | CPT/HCPCS: 11042; 87070; 87075; 87077; 87205 ==

== ENCOUNTER → 2018-09-14 | Outpatient (CLI) | payer MEDICARE, MEDICAID | LOC: WOUNDCARE 12:33 | PROVIDERS: ATTEND Surgery | DX: E11.621 Type 2 diabetes mellitus with foot ulcer (principal); L97.422 Non-pressure chronic ulcer of left heel and midfoot with fat layer exposed; L97.522 Non-pressure chronic ulcer of other part of left foot with fat layer exposed; E11.42 Type 2 diabetes mellitus with diabetic polyneuropathy; M14.672 Charcot's joint, left ankle and foot; I89.0 Lymphedema, not elsewhere classified; E66.01 Morbid (severe) obesity due to excess calories; Z68.41 Body mass index [BMI] 40.0-44.9, adult | CPT/HCPCS: 29445 ==

== ENCOUNTER → 2018-09-21 | Outpatient (CLI) | payer MEDICARE, MEDICAID ==
[~2018-09-21] MED LIST changes: -AMLO5TAB7 PO; +AMLO5TAB9 PO; -GABA600T2 PO
== END ==
LOC: WOUNDCARE 12:23
PROVIDERS: ATTEND Surgery
DX: E11.621 Type 2 diabetes mellitus with foot ulcer (principal); L97.422 Non-pressure chronic ulcer of left heel and midfoot with fat layer exposed; L97.522 Non-pressure chronic ulcer of other part of left foot with fat layer exposed; E11.42 Type 2 diabetes mellitus with diabetic polyneuropathy; M14.672 Charcot's joint, left ankle and foot; E66.01 Morbid (severe) obesity due to excess calories; Z68.41 Body mass index [BMI] 40.0-44.9, adult
CPT/HCPCS: 11042; 15275

== ENCOUNTER → 2018-09-28 | Outpatient (CLI) | payer MEDICARE, MEDICAID | LOC: WOUNDCARE 12:25 | PROVIDERS: ATTEND Surgery | DX: E11.621 Type 2 diabetes mellitus with foot ulcer (principal); L97.422 Non-pressure chronic ulcer of left heel and midfoot with fat layer exposed; E11.42 Type 2 diabetes mellitus with diabetic polyneuropathy; M14.672 Charcot's joint, left ankle and foot; E66.01 Morbid (severe) obesity due to excess calories | CPT/HCPCS: 11042; 87070; 87075; 87077; 87205 ==

== ENCOUNTER → 2018-10-05 | Outpatient (CLI) | payer MEDICARE, MEDICAID | LOC: WOUNDCARE 12:24 | PROVIDERS: ATTEND Surgery | DX: E11.621 Type 2 diabetes mellitus with foot ulcer (principal); L97.422 Non-pressure chronic ulcer of left heel and midfoot with fat layer exposed; E11.42 Type 2 diabetes mellitus with diabetic polyneuropathy; M14.672 Charcot's joint, left ankle and foot; E66.01 Morbid (severe) obesity due to excess calories; Z68.41 Body mass index [BMI] 40.0-44.9, adult | CPT/HCPCS: 11042 ==

== ENCOUNTER → 2018-10-12 | Outpatient (CLI) | payer MEDICARE, MEDICAID | LOC: WOUNDCARE 12:26 | PROVIDERS: ATTEND Surgery | DX: E11.621 Type 2 diabetes mellitus with foot ulcer (principal); L97.422 Non-pressure chronic ulcer of left heel and midfoot with fat layer exposed; E11.42 Type 2 diabetes mellitus with diabetic polyneuropathy; M14.672 Charcot's joint, left ankle and foot; E66.01 Morbid (severe) obesity due to excess calories; Z68.41 Body mass index [BMI] 40.0-44.9, adult | CPT/HCPCS: 11042 ==

== ENCOUNTER → 2018-10-19 | Outpatient (CLI) | payer MEDICARE, MEDICAID | LOC: WOUNDCARE 12:22 | PROVIDERS: ATTEND Surgery | DX: E11.621 Type 2 diabetes mellitus with foot ulcer (principal); L97.422 Non-pressure chronic ulcer of left heel and midfoot with fat layer exposed; E11.42 Type 2 diabetes mellitus with diabetic polyneuropathy; M14.672 Charcot's joint, left ankle and foot; E66.01 Morbid (severe) obesity due to excess calories; Z68.41 Body mass index [BMI] 40.0-44.9, adult | CPT/HCPCS: 29445 ==

== ENCOUNTER → 2018-10-26 | Outpatient (CLI) | payer MEDICARE, MEDICAID | LOC: WOUNDCARE 12:08 | PROVIDERS: ATTEND Surgery | DX: E11.621 Type 2 diabetes mellitus with foot ulcer (principal); L97.422 Non-pressure chronic ulcer of left heel and midfoot with fat layer exposed; E11.42 Type 2 diabetes mellitus with diabetic polyneuropathy; M14.672 Charcot's joint, left ankle and foot; E66.01 Morbid (severe) obesity due to excess calories; Z68.41 Body mass index [BMI] 40.0-44.9, adult | CPT/HCPCS: 99212 ==

== ENCOUNTER → 2018-11-09 | Outpatient (CLI) | payer MEDICARE, MEDICAID | LOC: WOUNDCARE 08:32 | PROVIDERS: ATTEND Surgery | DX: E11.621 Type 2 diabetes mellitus with foot ulcer (principal); L97.422 Non-pressure chronic ulcer of left heel and midfoot with fat layer exposed; E11.610 Type 2 diabetes mellitus with diabetic neuropathic arthropathy; E11.42 Type 2 diabetes mellitus with diabetic polyneuropathy; E66.01 Morbid (severe) obesity due to excess calories; Z68.41 Body mass index [BMI] 40.0-44.9, adult | CPT/HCPCS: 11042 ==

== ENCOUNTER → 2018-11-15 | Outpatient (CLI) | payer MEDICARE, MEDICAID | LOC: WOUNDCARE 13:01 | PROVIDERS: ATTEND Surgery | DX: E11.621 Type 2 diabetes mellitus with foot ulcer (principal); E11.42 Type 2 diabetes mellitus with diabetic polyneuropathy; L97.422 Non-pressure chronic ulcer of left heel and midfoot with fat layer exposed; M14.672 Charcot's joint, left ankle and foot; E66.01 Morbid (severe) obesity due to excess calories | CPT/HCPCS: 99212 ==

== ENCOUNTER → 2018-11-22 | Outpatient (CLI) | payer MEDICARE, MEDICAID | LOC: WOUNDCARE 12:37 | PROVIDERS: ATTEND Surgery | DX: E11.621 Type 2 diabetes mellitus with foot ulcer (principal); E11.42 Type 2 diabetes mellitus with diabetic polyneuropathy; L97.422 Non-pressure chronic ulcer of left heel and midfoot with fat layer exposed; M14.672 Charcot's joint, left ankle and foot; E66.01 Morbid (severe) obesity due to excess calories | CPT/HCPCS: 99213 ==

== ENCOUNTER → 2019-01-09 | Outpatient (CLI) | payer MEDICARE, MEDICAID | LOC: WOUNDCARE 09:37 | PROVIDERS: ATTEND Surgery | DX: E11.621 Type 2 diabetes mellitus with foot ulcer (principal); L97.422 Non-pressure chronic ulcer of left heel and midfoot with fat layer exposed; E11.42 Type 2 diabetes mellitus with diabetic polyneuropathy; E11.610 Type 2 diabetes mellitus with diabetic neuropathic arthropathy | CPT/HCPCS: 99213 ==

== ENCOUNTER → 2019-01-16 | Outpatient (CLI) | payer MEDICARE, MEDICAID | LOC: WOUNDCARE 11:26 | PROVIDERS: ATTEND Surgery | DX: E11.621 Type 2 diabetes mellitus with foot ulcer (principal); L97.421 Non-pressure chronic ulcer of left heel and midfoot limited to breakdown of skin; E11.42 Type 2 diabetes mellitus with diabetic polyneuropathy; E11.610 Type 2 diabetes mellitus with diabetic neuropathic arthropathy | CPT/HCPCS: 99212 ==

== ENCOUNTER → 2019-01-30 | Outpatient (CLI) | payer MEDICARE, MEDICAID | LOC: WOUNDCARE 09:04 | PROVIDERS: ATTEND Surgery | DX: E11.621 Type 2 diabetes mellitus with foot ulcer (principal); L97.422 Non-pressure chronic ulcer of left heel and midfoot with fat layer exposed; L97.421 Non-pressure chronic ulcer of left heel and midfoot limited to breakdown of skin; E11.42 Type 2 diabetes mellitus with diabetic polyneuropathy; E11.610 Type 2 diabetes mellitus with diabetic neuropathic arthropathy | CPT/HCPCS: 11042 ==

== ENCOUNTER → 2019-02-06 | Outpatient (CLI) | payer MEDICARE, MEDICAID | LOC: WOUNDCARE 11:39 | PROVIDERS: ATTEND Surgery | DX: E11.621 Type 2 diabetes mellitus with foot ulcer (principal); L97.422 Non-pressure chronic ulcer of left heel and midfoot with fat layer exposed; E11.42 Type 2 diabetes mellitus with diabetic polyneuropathy; E11.610 Type 2 diabetes mellitus with diabetic neuropathic arthropathy | CPT/HCPCS: 99212 ==

== ENCOUNTER → 2019-03-31 | Outpatient (CLI) | payer MEDICARE, MEDICAID | LOC: WOUNDCARE 08:16 | PROVIDERS: ATTEND Surgery | DX: E11.621 Type 2 diabetes mellitus with foot ulcer (principal); E11.42 Type 2 diabetes mellitus with diabetic polyneuropathy; E11.65 Type 2 diabetes mellitus with hyperglycemia; L97.422 Non-pressure chronic ulcer of left heel and midfoot with fat layer exposed; M14.672 Charcot's joint, left ankle and foot; E66.01 Morbid (severe) obesity due to excess calories | CPT/HCPCS: 11042; 87070; 87077; 87186; 87205; 99213 ==

== ENCOUNTER → 2019-04-05 | Outpatient (CLI) | payer MEDICARE, MEDICAID | LOC: WOUNDCARE 10:13 | PROVIDERS: ATTEND Surgery | DX: E11.621 Type 2 diabetes mellitus with foot ulcer (principal); E11.42 Type 2 diabetes mellitus with diabetic polyneuropathy; E11.65 Type 2 diabetes mellitus with hyperglycemia; L97.422 Non-pressure chronic ulcer of left heel and midfoot with fat layer exposed; M14.672 Charcot's joint, left ankle and foot; E66.01 Morbid (severe) obesity due to excess calories; E11.52 Type 2 diabetes mellitus with diabetic peripheral angiopathy with gangrene; I96 Gangrene, not elsewhere classified | CPT/HCPCS: 11042 ==

== ENCOUNTER → 2019-04-12 | Outpatient (CLI) | payer MEDICARE, MEDICAID | LOC: WOUNDCARE 10:06 | PROVIDERS: ATTEND Surgery | DX: E11.621 Type 2 diabetes mellitus with foot ulcer (principal); E11.42 Type 2 diabetes mellitus with diabetic polyneuropathy; E11.52 Type 2 diabetes mellitus with diabetic peripheral angiopathy with gangrene; E11.65 Type 2 diabetes mellitus with hyperglycemia; E11.610 Type 2 diabetes mellitus with diabetic neuropathic arthropathy; I70.262 Atherosclerosis of native arteries of extremities with gangrene, left leg; L97.422 Non-pressure chronic ulcer of left heel and midfoot with fat layer exposed; A52.16 Charcot's arthropathy (tabetic); E66.01 Morbid (severe) obesity due to excess calories | CPT/HCPCS: 11042 ==

== ENCOUNTER 2019-04-19 12:25 | Emergency (ER) | payer MEDICARE, MEDICAID ==
[~2019-04-19] VITALS: Ht 165.1 cm; Wt 127.0 kg
[2019-04-19 12:35] VITALS: BP 129/76
[2019-04-19] MEDS ORDERED: DEXTROSE 50% 50 ML (IMS) SYR IV ONE (13:00)
[2019-04-19 13:11] LABS: BASOPHILS % (AUTO) 1 % (0-10); EOSINOPHILS # (AUTO) 0.1 10^3/uL (0.0-0.3); EOSINOPHILS % (AUTO) 2 % (0-10); HEMATOCRIT 33 % (35-52); HEMOGLOBIN 10.3 G/DL (11.5-16.0); LYMPHOCYTES # (AUTO) 2.2 X 10^3 (1.0-4.0); LYMPHOCYTES % (AUTO) 28 % (12-44); MEAN CORPUSCULAR HEMOGLOBIN 30 PG (25-34); MEAN CORPUSCULAR HGB CONC 32 G/DL (32-36); MEAN CORPUSCULAR VOLUME 93 FL (80-99); MEAN PLATELET VOLUME 11.4 FL (7.4-10.4); MONOCYTES # (AUTO) 0.5 X 10^3 (0.0-1.0); MONOCYTES % (AUTO) 7 % (0-12); NEUTROPHILS # (AUTO) 4.7 X 10^3 (1.8-7.8); NEUTROPHILS % (AUTO) 63 % (42-75); PLATELET COUNT 226 10^3/uL (130-400); RED CELL DISTRIBUTION WIDTH 13.5 % (10.0-14.5); WHITE BLOOD COUNT 7.6 10^3/uL (4.3-11.0)
[2019-04-19 13:30] LABS: ALANINE AMINOTRANSFERASE 9 U/L (0-55); ALBUMIN 3.7 GM/DL (3.2-4.5); ALKALINE PHOSPHATASE 123 U/L (40-136); BILIRUBIN,TOTAL 0.3 MG/DL (0.1-1.0); BUN/CREATININE RATIO 13; CALCIUM 8.5 MG/DL (8.5-10.1); CARBON DIOXIDE 30 MMOL/L (21-32); CHLORIDE 106 MMOL/L (98-107); CREATINE KINASE 62 U/L (29-168); CREATININE SERUM 1.19 MG/DL (0.60-1.30); GFR ESTIMATED 46; GLUCOSE 78 MG/DL (70-105); MAGNESIUM 1.7 MG/DL (1.6-2.4); POTASSIUM 4.8 MMOL/L (3.6-5.0); SODIUM 139 MMOL/L (135-145); TOTAL PROTEIN 7.2 GM/DL (6.4-8.2)
[2019-04-19 13:50] LABS: CREATINE KINASE MB 3.3 NG/ML (<6.6); TSH (THYROID ANALYZER) 1.45 UIU/ML (0.35-4.94)
[2019-04-19 13:51] LABS: BILIRUBIN,URINE NEGATIVE (NEGATIVE); CLARITY,URINE CLEAR; COLOR,URINE YELLOW; GLUCOSE, URINE (UA) NEGATIVE (NEGATIVE); KETONES,URINE NEGATIVE (NEGATIVE); LEUKOCYTE ESTERASE ,URINE NEGATIVE (NEGATIVE); NITRITE,URINE NEGATIVE (NEGATIVE); PH,URINE 5 (5-9); PROTEIN,URINE NEGATIVE (NEGATIVE); UROBILINOGEN,URINE NORMAL (NORMAL)
[2019-04-19 14:05] LABS: BACTERIA,URINE NEGATIVE /HPF; WBC,URINE RARE /HPF
--- NOTE | 2019-04-19 15:29 | Diagnostic Imaging Report ---
INDICATION: Pain in the region of the right PICC line. FINDINGS: The right internal jugular vein as well as the right subclavian and axillary veins are patent. The brachial vein is patent. There is a PICC line within the cephalic vein which appears to be patent. The basilic is unremarkable. The radial and ulnar veins are patent. No fluid collections are seen. IMPRESSION: No evidence of right upper extremity DVT. Dictated by: Dictated on workstation # [id number]
--- NOTE | 2019-04-19 16:03 | ED General ---
General Chief Complaint: Dizziness/Syncope Stated Complaint: PICC LINE SWELLING Nursing Triage Note: PT ARRIVES VIA EMS WITH C/O FEEL DIZZY WHILE DRIVING. PT HAS RECENT DIAGNOSIS OF NEOPLASM OF TONSIL AND HAS A PICC LINE YESTERDAY AND IS C/O PAIN IN RIGHT UPPER LINE WHERE PICC LINE WAS PLACED. PT SAYS SYMPTOMS HAVE IMPROVED. Nursing Sepsis Screen: No Definite Risk Allergies and Home Medications Allergies Uncoded Allergies: TAPE (Allergy, Intermediate, 11/11/14) Home Medications Albuterol Sulfate 18 Gm Hfa.aer.ad, 2 PUFF INH Q4H PRN for SHORTNESS OF BREATH, (Reported) Alprazolam 1 Mg Tablet, 1 MG PO QID PRN for ANXIETY, (Reported) Amlodipine Besylate 5 Mg Tablet, 5 MG PO DAILY, (Reported) Aspirin 81 Mg Tablet.dr, 81 MG PO DAILY, (Reported) Atorvastatin Calcium 10 Mg Tablet, 10 MG PO DAILY, (Reported) Bupropion HCl 150 Mg Tablet.er, 150 MG PO BID PRN, (Reported) Diazepam 5 Mg Tablet, 5 MG PO Q12H PRN for MUSCLE SPASMS, (Reported) Diphenhydramine HCl 25 Mg Tablet, 25 MG PO Q12H PRN for ALLERGIES, (Reported) Gabapentin 600 Mg Tablet, 600 MG PO BID, (Reported) Hydrocodone/Acetaminophen 1 Each Tablet, 1 EACH PO Q6H PRN for PAIN-MODERATE, (Reported) Insulin Aspart 100 Unit/1 Ml Susp, 4-15 UNITS SQ SLIDING/SCALE PRN for BS ABOVE 200, (Reported) Insulin Glargine,Hum.rec.anlog 100 Unit/1 Ml Vial, 80 UNITS SQ HS, (Reported) Levothyroxine Sodium 25 Mcg Tablet, 25 MCG PO DAILY, (Reported) Lidocaine HCl 76.5 Gm Cream..g., TP QID PRN for LEG PAIN, (Reported) Lisinopril 40 Mg Tablet, 40 MG PO DAILY, (Reported) Multivitamins with Iron 1 Each Tablet, 1 TAB PO DAILY, (Reported) Temazepam 15 Mg Capsule, 15 MG PO HS, (Reported) Past Rmzsugn-Gnepuh-Mhxdca Hx Patient Social History Alcohol Use: Denies Use Recreational Drug Use: No Type Used: Cigarettes Former Smoker, Quit: Jul 14, 2011 2nd Hand Smoke Exposure: No Recent Foreign Travel: No Contact w/Someone Who Travel: No Recent Infectious Disease Expo: No Recent Hopitalizations: No Physical Abuse: No Sexual Abuse: No Mistreated: No Fear: No Immunizations Up To Date Date of Pneumonia Vaccine: Jul 14, 2012 Date of Influenza Vaccine: May 12, 2017 Seasonal Allergies Seasonal Allergies: Yes Past Medical History Surgeries: Yes (HYSTERECTOMY 1978, APPY 1959'S, GASTRIC BYPASS, BACK KYPHOPLASTY) Abdominal, Appendectomy, Hysterectomy, Vascular Surgery Respiratory: No (USED TO HAVE HOME O2 PRN) Currently Using CPAP: No Currently Using BIPAP: No Cardiac: Yes Hypertension, Peripheral Vascular Neurological: Yes Stroke Reproductive Disorders: No 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 Disorders: Denies Sexually Transmitted Disease: No HIV/AIDS: No Genitourinary: Yes UTI-Chronic Gastrointestinal: Yes (UMBILICAL HERNIA, OCCASIONAL CONSTIPATION--TAKES LACTULOSE, GASTRIC BYPASS) Chronic Constipation Musculoskeletal: Yes (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 0.0oz. 127.348575ms; 43.2 BMI Method:Stated Progress/Results/Core Measures Suspected Sepsis Recent Fever Within 48 Hours: No Infection Criteria Present: None New/Unexplained Altered Menta: No Sepsis Screen: No Definite Risk SIRS Temperature:97.6 Pulse: 73 Respiratory Rate: 18 Laboratory Tests 04/19/19 13:06: White Blood Count 7.6 Blood Pressure 129 /76 Mean: 93 Laboratory Tests 04/19/19 13:06: Creatinine 1.19, Platelet Count 226, Total Bilirubin 0.3 Results/Orders Lab Results Laboratory Tests Test 04/19/19 12:51 04/19/19 13:06 04/19/19 13:44 Range/Units Glucometer 77 70-110 MG/DL White Blood Count 7.6 4.3-11.0 10^3/uL Red Blood Count 3.49 L 4.35-5.85 10^6/uL Hemoglobin 10.3 L 11.5-16.0 G/DL Hematocrit 33 L 35-52 % Mean Corpuscular Volume 93 80-99 FL Mean Corpuscular Hemoglobin 30 25-34 PG Mean Corpuscular Hemoglobin Concent 32 32-36 G/DL Red Cell Distribution Width 13.5 10.0-14.5 % Platelet Count 226 130-400 10^3/uL Mean Platelet Volume 11.4 H 7.4-10.4 FL Neutrophils (%) (Auto) 63 42-75 % Lymphocytes (%) (Auto) 28 12-44 % Monocytes (%) (Auto) 7 0-12 % Eosinophils (%) (Auto) 2 0-10 % Basophils (%) (Auto) 1 0-10 % Neutrophils # (Auto) 4.7 1.8-7.8 X 10^3 Lymphocytes # (Auto) 2.2 1.0-4.0 X 10^3 Monocytes # (Auto) 0.5 0.0-1.0 X 10^3 Eosinophils # (Auto) 0.1 0.0-0.3 10^3/uL Basophils # (Auto) 0.0 0.0-0.1 10^3/uL Sodium Level 139 135-145 MMOL/L Potassium Level 4.8 3.6-5.0 MMOL/L Chloride Level 106 98-107 MMOL/L Carbon Dioxide Level 30 21-32 MMOL/L Anion Gap 3 L 5-14 MMOL/L Blood Urea Nitrogen 16 7-18 MG/DL Creatinine 1.19 0.60-1.30 MG/DL Estimat Glomerular Filtration Rate 46 BUN/Creatinine Ratio 13 Glucose Level 78 70-105 MG/DL Calcium Level 8.5 8.5-10.1 MG/DL Corrected Calcium 8.7 8.5-10.1 MG/DL Magnesium Level 1.7 1.6-2.4 MG/DL Total Bilirubin 0.3 0.1-1.0 MG/DL Aspartate Amino Transf (AST/SGOT) 14 5-34 U/L Alanine Aminotransferase (ALT/SGPT) 9 0-55 U/L Alkaline Phosphatase 123 40-136 U/L Total Creatine Kinase 62 29-168 U/L Creatine Kinase MB 3.3 <6.6 NG/ML Myoglobin 89.9 10.0-92.0 NG/ML Troponin I < 0.028 <0.028 NG/ML B-Type Natriuretic Peptide 22.1 <100.0 PG/ML Total Protein 7.2 6.4-8.2 GM/DL Albumin 3.7 3.2-4.5 GM/DL TSH [place] Testing 1.45 0.35-4.94 UIU/ML Urine Color YELLOW Urine Clarity CLEAR Urine pH 5 5-9 Urine Specific [place] 1.015 L 1.016-1.022 Urine Protein NEGATIVE NEGATIVE Urine Glucose (UA) NEGATIVE NEGATIVE Urine Ketones NEGATIVE NEGATIVE Urine Nitrite NEGATIVE NEGATIVE Urine Bilirubin NEGATIVE NEGATIVE Urine Urobilinogen NORMAL NORMAL MG/DL Urine Leukocyte Esterase NEGATIVE NEGATIVE Urine RBC (Auto) NEGATIVE NEGATIVE Urine RBC NONE /HPF Urine WBC RARE /HPF Urine Squamous Epithelial Cells 5-10 /HPF Urine Crystals NONE /LPF Urine Bacteria NEGATIVE /HPF Urine Casts NONE /LPF Urine Mucus NEGATIVE /LPF Urine Culture Indicated NO My Orders Orders - CECILLE CONWAY DO Accucheck Stat ONCE (04/19/19 12:35) Ed Iv/Invasive Line Start (04/19/19 12:35) Monitor-Rhythm Ecg Trace Only (04/19/19 12:35) BNP (04/19/19 12:35) Cbc With Automated Diff (04/19/19 12:35) Comprehensive Metabolic Panel (04/19/19 12:35) Creatine Kinase (04/19/19 12:35) Creatine Kinase Mb (04/19/19 12:35) Magnesium (04/19/19 12:35) Thyroid Analyzer (04/19/19 12:35) Ua Culture If Indicated (04/19/19 12:35) Myoglobin Serum (04/19/19 12:35) Troponin I (04/19/19 12:35) Ekg Tracing (04/19/19 12:35) Us Venous Upper Ext Rt (04/19/19 12:51) D50w (Emergency) Syringe (Dextrose 50% 5 (04/19/19 13:00) Medications Given in ED Current Medications Medications Dose Ordered Sig/Judi Route Start Time Stop Time Status Last Admin Dose Admin Dextrose 25 ml ONCE ONCE IV 04/19/19 13:00 04/19/19 13:01 DC 04/19/19 13:06 25 ML Vital Signs/I&O 04/19/19 12:35 Temp 97.6 Pulse 73 Resp 18 B/P (MAP) 129/76 (93) Pulse Ox 98 O2 Delivery Room Air Capillary Refill : Less Than 3 Seconds Blood Pressure Mean: 93 Point of Care Testing Finger Stick Blood Glucose: 77 Diagnostic Imaging Comments ULTRASOUND RIGHT ARM--NO DVT, PICC LINE IN PLACE AND IS PATENT, PER RADIOLOGIST REPORT AT 1557 Reviewed: Reviewed by Me Departure Impression Primary Impression: TRANSIENT DIZZINESS Additional Impression: SUSPECT EPISODE OF HYPOGLYCEMIA Disposition: HOME, SELF-CARE Condition: Improved Departure-Patient Inst. Referrals: MARIE LUNA DO (PCP/Family) Primary Care Physician Patient Instructions: Dizziness, Nonvertigo, (DC), Low Blood Sugar in People With Diabetes Add. Discharge Instructions: HOME, REST LOTS OF FLUIDS CHECK YOUR BLOOD SUGAR 3 TIMES A DAY BEFORE EACH MEAL EAT 3 MEALS A DAY FOLLOW UP WITH DR LUNA NEEDED FOLLOW UP WITH ONCOLOGY ON WEDNESDAY SCHEDULED RETURN TO ER IF SYMPTOMS RETURN All discharge instructions reviewed with patient and/or family. Voiced understanding. CECILLE CONWAY DO Apr 19, 2019 16:03
== END 2019-04-19 16:18 | disposition home or self-care (01) ==
LOC: EDUNIT# 12:25 → ER 12:26
DX: R42 Dizziness and giddiness (principal); I10 Essential (primary) hypertension; E11.51 Type 2 diabetes mellitus with diabetic peripheral angiopathy without gangrene; F41.9 Anxiety disorder, unspecified; Z85.819 Personal history of malignant neoplasm of unspecified site of lip, oral cavity, and pharynx; Z87.440 Personal history of urinary (tract) infections; Z86.73 Personal history of transient ischemic attack (TIA), and cerebral infarction without residual deficits; Z88.8 Allergy status to other drugs, medicaments and biological substances; Z79.82 Long term (current) use of aspirin; Z79.4 Long term (current) use of insulin; Z87.891 Personal history of nicotine dependence; Z90.710 Acquired absence of both cervix and uterus; Z98.84 Bariatric surgery status; Z90.49 Acquired absence of other specified parts of digestive tract; Z99.81 Dependence on supplemental oxygen; Z86.012 Personal history of benign carcinoid tumor; Z82.49 Family history of ischemic heart disease and other diseases of the circulatory system; Z80.8 Family history of malignant neoplasm of other organs or systems
CPT/HCPCS: 36415; 80053; 81000; 82550; 82553; 82962; 83735; 83874; 83880; 84443; 84484; 85025; 93005; 93041; 96374

== ENCOUNTER → 2019-04-19 | Outpatient (CLI) | payer MEDICARE, MEDICAID | LOC: WOUNDCARE 09:51 | PROVIDERS: ATTEND Surgery | DX: L97.422 Non-pressure chronic ulcer of left heel and midfoot with fat layer exposed (principal); E11.621 Type 2 diabetes mellitus with foot ulcer; E11.42 Type 2 diabetes mellitus with diabetic polyneuropathy; E11.52 Type 2 diabetes mellitus with diabetic peripheral angiopathy with gangrene; I96 Gangrene, not elsewhere classified; M14.672 Charcot's joint, left ankle and foot; E66.01 Morbid (severe) obesity due to excess calories; I70.244 Atherosclerosis of native arteries of left leg with ulceration of heel and midfoot | CPT/HCPCS: 11042 ==

== ENCOUNTER → 2019-04-19 | Outpatient (CLI) | payer MEDICARE, MEDICAID ==
--- NOTE | 2019-04-19 15:59 | Diagnostic Imaging Report ---
INDICATION: Foot ulcer. COMPARISON: None. FINDINGS: Three radiographic views of the left foot were obtained. Postsurgical changes of the distal first metatarsal are noted. No unexpected radiopaque foreign bodies are seen. No lytic or blastic osseous lesions are identified. There is no evidence of acute fracture or dislocation. Joint spaces are maintained. Note is made of soft tissue ulcer involving the plantar margins of the midfoot. IMPRESSION: 1. Soft tissue ulcer involving the plantar margins of the midfoot, but no underlying lytic or blastic osseous lesion is seen. Please note however that osteomyelitis cannot be excluded based on radiographs alone. There is concern for osteomyelitis, MRI is recommended. 2. No acute fracture or dislocation. Dictated by: Dictated on workstation # [id number]
== END ==
LOC: RAD 10:53
PROVIDERS: ATTEND Surgery
DX: E11.621 Type 2 diabetes mellitus with foot ulcer (principal); L97.422 Non-pressure chronic ulcer of left heel and midfoot with fat layer exposed
CPT/HCPCS: 36415; 73630; 83036

== ENCOUNTER → 2019-04-25 | Outpatient (CLI) | payer MEDICARE, MEDICAID | LOC: WOUNDCARE 15:17 | PROVIDERS: ATTEND Surgery | DX: E11.621 Type 2 diabetes mellitus with foot ulcer (principal); E11.42 Type 2 diabetes mellitus with diabetic polyneuropathy; E11.52 Type 2 diabetes mellitus with diabetic peripheral angiopathy with gangrene; E11.65 Type 2 diabetes mellitus with hyperglycemia; E11.610 Type 2 diabetes mellitus with diabetic neuropathic arthropathy; L97.422 Non-pressure chronic ulcer of left heel and midfoot with fat layer exposed; E66.01 Morbid (severe) obesity due to excess calories; I70.262 Atherosclerosis of native arteries of extremities with gangrene, left leg | CPT/HCPCS: 11042 ==

== ENCOUNTER → 2019-05-03 | Outpatient (CLI) | payer MEDICARE, MEDICAID | LOC: WOUNDCARE 13:54 | PROVIDERS: ATTEND Surgery | DX: L97.422 Non-pressure chronic ulcer of left heel and midfoot with fat layer exposed (principal); E11.621 Type 2 diabetes mellitus with foot ulcer; E11.52 Type 2 diabetes mellitus with diabetic peripheral angiopathy with gangrene; I96 Gangrene, not elsewhere classified; E11.42 Type 2 diabetes mellitus with diabetic polyneuropathy; M14.672 Charcot's joint, left ankle and foot; E66.01 Morbid (severe) obesity due to excess calories; I70.244 Atherosclerosis of native arteries of left leg with ulceration of heel and midfoot | CPT/HCPCS: 11042 ==

== ENCOUNTER → 2019-05-17 | Outpatient (CLI) | payer MEDICARE, MEDICAID | LOC: WOUNDCARE 14:23 | PROVIDERS: ATTEND Surgery | DX: E11.621 Type 2 diabetes mellitus with foot ulcer (principal); E11.42 Type 2 diabetes mellitus with diabetic polyneuropathy; E11.65 Type 2 diabetes mellitus with hyperglycemia; L97.422 Non-pressure chronic ulcer of left heel and midfoot with fat layer exposed; M14.672 Charcot's joint, left ankle and foot; E66.01 Morbid (severe) obesity due to excess calories; I70.244 Atherosclerosis of native arteries of left leg with ulceration of heel and midfoot; E11.52 Type 2 diabetes mellitus with diabetic peripheral angiopathy with gangrene | CPT/HCPCS: 11042 ==

== ENCOUNTER → 2019-05-23 | Outpatient (CLI) | payer MEDICARE, MEDICAID | LOC: WOUNDCARE 14:00 | PROVIDERS: ATTEND Surgery | DX: L97.422 Non-pressure chronic ulcer of left heel and midfoot with fat layer exposed (principal); E11.621 Type 2 diabetes mellitus with foot ulcer; E11.52 Type 2 diabetes mellitus with diabetic peripheral angiopathy with gangrene; E11.42 Type 2 diabetes mellitus with diabetic polyneuropathy; E11.65 Type 2 diabetes mellitus with hyperglycemia; M14.672 Charcot's joint, left ankle and foot; E66.01 Morbid (severe) obesity due to excess calories; I70.244 Atherosclerosis of native arteries of left leg with ulceration of heel and midfoot | CPT/HCPCS: 11042 ==

== ENCOUNTER → 2019-05-31 | Outpatient (CLI) | payer MEDICARE, MEDICAID | LOC: WOUNDCARE 14:01 | PROVIDERS: ATTEND Surgery | DX: E11.621 Type 2 diabetes mellitus with foot ulcer (principal); E11.42 Type 2 diabetes mellitus with diabetic polyneuropathy; E11.65 Type 2 diabetes mellitus with hyperglycemia; L97.422 Non-pressure chronic ulcer of left heel and midfoot with fat layer exposed; M14.672 Charcot's joint, left ankle and foot; E66.01 Morbid (severe) obesity due to excess calories; I70.244 Atherosclerosis of native arteries of left leg with ulceration of heel and midfoot; E11.52 Type 2 diabetes mellitus with diabetic peripheral angiopathy with gangrene | CPT/HCPCS: 11042 ==

== ENCOUNTER → 2019-06-14 | Outpatient (CLI) | payer MEDICARE, MEDICAID | LOC: WOUNDCARE 12:59 | PROVIDERS: ATTEND Surgery | DX: L97.422 Non-pressure chronic ulcer of left heel and midfoot with fat layer exposed (principal); E11.621 Type 2 diabetes mellitus with foot ulcer; E11.42 Type 2 diabetes mellitus with diabetic polyneuropathy; E11.65 Type 2 diabetes mellitus with hyperglycemia; E11.52 Type 2 diabetes mellitus with diabetic peripheral angiopathy with gangrene; M14.672 Charcot's joint, left ankle and foot; E66.01 Morbid (severe) obesity due to excess calories; I70.244 Atherosclerosis of native arteries of left leg with ulceration of heel and midfoot | CPT/HCPCS: 11042 ==

== ENCOUNTER 2019-06-18 16:11 | Observation (INO) | payer MEDICARE, MEDICAID ==
[~2019-06-18] VITALS: Ht 167.7 cm; Wt 114.8 kg
[2019-06-18] MEDS ORDERED: NS IV 1000 ML 1,000 ML IV SCH (16:45)
[2019-06-18 16:53] LABS: BASOPHILS % (AUTO) 0 % (0-10); EOSINOPHILS % (AUTO) 0 % (0-10); HEMATOCRIT 30 % (35-52); HEMOGLOBIN 9.9 G/DL (11.5-16.0); LYMPHOCYTES # (AUTO) 0.5 X 10^3 (1.0-4.0); LYMPHOCYTES % (AUTO) 7 % (12-44); MEAN CORPUSCULAR HEMOGLOBIN 31 PG (25-34); MEAN CORPUSCULAR HGB CONC 33 G/DL (32-36); MEAN CORPUSCULAR VOLUME 94 FL (80-99); MEAN PLATELET VOLUME 10.8 FL (7.4-10.4); MONOCYTES # (AUTO) 0.7 X 10^3 (0.0-1.0); MONOCYTES % (AUTO) 11 % (0-12); NEUTROPHILS # (AUTO) 5.3 X 10^3 (1.8-7.8); NEUTROPHILS % (AUTO) 81 % (42-75); PLATELET COUNT 285 10^3/uL (130-400); WHITE BLOOD COUNT 6.5 10^3/uL (4.3-11.0)
--- NOTE | 2019-06-18 16:55 | ED General ---
General Chief Complaint: General Problems/Pain Stated Complaint: DIFFICULTY SWALLOWING Nursing Triage Note: PT ARRIVED PER EMS. PT STATES HAS HAD DIFFICULTY FOR PAST 2 DAYS SWALLOWING, HAS DID SOME CHOKING, AND HAS PERSISTANT COUGH, PT HAS" THROAT CA AND HEAD CA" PT STATES FINISHED CHEMO LAST WEEK. PT HAS PICC LINE IN PLACE IN R [place]. PT IS ANXIOUS AT THIS X Nursing Sepsis Screen: No Definite Risk Source of Information: Patient History of Present Illness Date Seen by Provider: Jun 18, 2019 Time Seen by Provider: 16:52 Initial Comments This 63-year-old white female presents with a complaint of difficulty swallowing for the last 2 days following her chemotherapy and radiation therapy for her stage for throat cancer. The patient denies hemoptysis or hematemesis. She has had no associated fever or chill. The patient has been able to take liquids but in a limited fashion. Physical patient's wishes that she be rehydrated and allowed to go home. Allergies and Home Medications Allergies Uncoded Allergies: TAPE (Allergy, Intermediate, 11/11/14) Home Medications Albuterol Sulfate 18 Gm Hfa.aer.ad, 2 PUFF INH Q4H PRN for SHORTNESS OF BREATH, (Reported) Alprazolam 1 Mg Tablet, 1 MG PO QID PRN for ANXIETY, (Reported) Amlodipine Besylate 5 Mg Tablet, 5 MG PO DAILY, (Reported) Aspirin 81 Mg Tablet.dr, 81 MG PO DAILY, (Reported) Atorvastatin Calcium 10 Mg Tablet, 10 MG PO DAILY, (Reported) Bupropion HCl 150 Mg Tablet.er, 150 MG PO BID PRN, (Reported) Diazepam 5 Mg Tablet, 5 MG PO Q12H PRN for MUSCLE SPASMS, (Reported) Diphenhydramine HCl 25 Mg Tablet, 25 MG PO Q12H PRN for ALLERGIES, (Reported) Gabapentin 600 Mg Tablet, 600 MG PO BID, (Reported) Hydrocodone/Acetaminophen 1 Each Tablet, 1 EACH PO Q6H PRN for PAIN-MODERATE, (Reported) Insulin Aspart 100 Unit/1 Ml Susp, 4-15 UNITS SQ SLIDING/SCALE PRN for BS ABOVE 200, (Reported) Insulin Glargine,Hum.rec.anlog 100 Unit/1 Ml Vial, 80 UNITS SQ HS, (Reported) Levothyroxine Sodium 25 Mcg Tablet, 25 MCG PO DAILY, (Reported) Lidocaine HCl 76.5 Gm Cream..g., TP QID PRN for LEG PAIN, (Reported) Lisinopril 40 Mg Tablet, 40 MG PO DAILY, (Reported) Multivitamins with Iron 1 Each Tablet, 1 TAB PO DAILY, (Reported) Temazepam 15 Mg Capsule, 15 MG PO HS, (Reported) Patient Home Medication List Home Medication List Reviewed: Yes Review of Systems Review of Systems Constitutional: No chills, No fever; malaise, weakness EENTM: No ear pain, No vision loss Respiratory: No cough, No short of breath Cardiovascular: No chest pain, No palpitations Gastrointestinal: No abdominal pain, No nausea, No vomiting Genitourinary: no symptoms reported Musculoskeletal: no symptoms reported Skin: no symptoms reported Psychiatric/Neurological: No Symptoms Reported Hematologic/Lymphatic: No Symptoms Reported Immunological/Allergic: no symptoms reported Past Kmsiwos-Kiucxt-Gejumu Hx Past Med/Social Hx: Reviewed Nursing Past Med/Soc Hx Patient Social History Alcohol Use: Denies Use Recreational Drug Use: No Smoking Status: Former Smoker Type Used: Cigarettes Former Smoker, Quit: Jul 14, 2011 2nd Hand Smoke Exposure: No Recent Foreign Travel: No Contact w/Someone Who Travel: No Recent Infectious Disease Expo: No Recent Hopitalizations: No Immunizations Up To Date Date of Pneumonia Vaccine: Jul 14, 2012 Date of Influenza Vaccine: May 12, 2017 Seasonal Allergies Seasonal Allergies: Yes Past Medical History Surgeries: Yes Abdominal, Appendectomy, Cardiac, Eye Surgery, Hysterectomy, Vascular Surgery Respiratory: Yes (PENUMONIA WITH SEPTIC SHOCK 05/2017) Pneumonia Currently Using CPAP: No Currently Using BIPAP: No Cardiac: Yes Coronary Artery Disease, Hypertension, Peripheral Vascular Neurological: Yes Stroke Reproductive Disorders: No 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 Sexually Transmitted Disease: No HIV/AIDS: No Genitourinary: Yes Renal Failure, UTI-Chronic Gastrointestinal: Yes Chronic Constipation Musculoskeletal: Yes (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, 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 IN SOFT TISSUE, L1-2 FX,) Back Injury, Chronic Back Pain, Fractures Endocrine: Yes (OBESITY) Diabetes, Insulin dep HEENT: Yes (BILATERAL CATARACT SURGERY) Cataract, Glaucoma Hearing Impairment: Hard of Hearing Cancer: Yes (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 0.0oz. 127.228418wl; 41.00 BMI Method:Stated General Appearance: No Apparent Distress, Cachetic Eyes: Bilateral Eye Normal Inspection HEENT: Normal ENT Inspection, Other (there is some induration to the soft tissues of her neck from the patient's previous record.) Neck: Normal Inspection, Non Tender, Supple Respiratory: Lungs Clear Cardiovascular: Regular Rate, Rhythm Gastrointestinal: Normal Bowel Sounds Extremity: Normal Capillary Refill, Normal Inspection Neurologic/Psychiatric: Oriented x3, No Motor/Sensory Deficits, Normal Mood/Affect Skin: Normal Color, Warm/Dry Focused Exam Lactate Level 06/18/19 17:38: Lactic Acid Level 0.75 Lactic Acid Level Laboratory Tests Test 06/18/19 17:38 Lactic Acid Level 0.75 MMOL/L (0.50-2.00) Progress/Results/Core Measures Suspected Sepsis Recent Fever Within 48 Hours: No Infection Criteria Present: None New/Unexplained Altered Menta: No Sepsis Screen: No Definite Risk SIRS Temperature: Pulse: 87 Respiratory Rate: 18 Laboratory Tests 06/18/19 16:25: White Blood Count 6.5 Blood Pressure 143 /82 Mean: 102 06/18/19 17:38: Lactic Acid Level 0.75 Laboratory Tests 06/18/19 16:25: Creatinine 0.96, Platelet Count 285, Total Bilirubin 0.5 Results/Orders Lab Results Laboratory Tests Test 06/18/19 16:25 06/18/19 17:13 06/18/19 17:38 Range/Units White Blood Count 6.5 4.3-11.0 10^3/uL Red Blood Count 3.17 L 4.35-5.85 10^6/uL Hemoglobin 9.9 L 11.5-16.0 G/DL Hematocrit 30 L 35-52 % Mean Corpuscular Volume 94 80-99 FL Mean Corpuscular Hemoglobin 31 25-34 PG Mean Corpuscular Hemoglobin Concent 33 32-36 G/DL Red Cell Distribution Width 18.0 H 10.0-14.5 % Platelet Count 285 130-400 10^3/uL Mean Platelet Volume 10.8 H 7.4-10.4 FL Neutrophils (%) (Auto) 81 H 42-75 % Lymphocytes (%) (Auto) 7 L 12-44 % Monocytes (%) (Auto) 11 0-12 % Eosinophils (%) (Auto) 0 0-10 % Basophils (%) (Auto) 0 0-10 % Neutrophils # (Auto) 5.3 1.8-7.8 X 10^3 Lymphocytes # (Auto) 0.5 L 1.0-4.0 X 10^3 Monocytes # (Auto) 0.7 0.0-1.0 X 10^3 Eosinophils # (Auto) 0.0 0.0-0.3 10^3/uL Basophils # (Auto) 0.0 0.0-0.1 10^3/uL Neutrophils % (Manual) 88 % Lymphocytes % (Manual) 3 % Monocytes % (Manual) 8 % Nucleated Red Blood Cells 1 Toxic Granulation 1+ Hypochromasia SLIGHT Anisocytosis SLIGHT Microcytosis SLIGHT Macrocytosis SLIGHT Spherocytes SLIGHT Sodium Level 136 135-145 MMOL/L Potassium Level 4.0 3.6-5.0 MMOL/L Chloride Level 99 98-107 MMOL/L Carbon Dioxide Level 27 21-32 MMOL/L Anion Gap 10 5-14 MMOL/L Blood Urea Nitrogen 16 7-18 MG/DL Creatinine 0.96 0.60-1.30 MG/DL Estimat Glomerular Filtration Rate 59 BUN/Creatinine Ratio 17 Glucose Level 99 70-105 MG/DL Calcium Level 8.0 L 8.5-10.1 MG/DL Corrected Calcium 8.4 L 8.5-10.1 MG/DL Total Bilirubin 0.5 0.1-1.0 MG/DL Aspartate Amino Transf (AST/SGOT) 13 5-34 U/L Alanine Aminotransferase (ALT/SGPT) 13 0-55 U/L Alkaline Phosphatase 84 40-136 U/L Total Protein 6.3 L 6.4-8.2 GM/DL Albumin 3.5 3.2-4.5 GM/DL Urine Color YELLOW Urine Clarity CLEAR Urine pH 8 5-9 Urine Specific [place] 1.010 L 1.016-1.022 Urine Protein 2+ H NEGATIVE Urine Glucose (UA) NEGATIVE NEGATIVE Urine Ketones NEGATIVE NEGATIVE Urine Nitrite NEGATIVE NEGATIVE Urine Bilirubin NEGATIVE NEGATIVE Urine Urobilinogen NORMAL NORMAL MG/DL Urine Leukocyte Esterase 1+ H NEGATIVE Urine RBC (Auto) NEGATIVE NEGATIVE Urine RBC NONE /HPF Urine WBC 25-50 H /HPF Urine Squamous Epithelial Cells 5-10 /HPF Urine Crystals PRESENT H /LPF Urine Triple Phosphate Crystals LARGE H /LPF Urine Bacteria LARGE H /HPF Urine Casts NONE /LPF Urine Mucus NEGATIVE /LPF Urine Culture Indicated YES Lactic Acid Level 0.75 0.50-2.00 MMOL/L My Orders Orders - AAKASH LOZANO MD Cbc With Automated Diff (06/18/19 16:41) Comprehensive Metabolic Panel (06/18/19 16:41) Ua Culture If Indicated (06/18/19 16:41) Blood Culture (06/18/19 16:41) Lactic Acid Analyzer (06/18/19 16:41) Ns Iv 1000 Ml (Sodium Chloride 0.9%) (06/18/19 16:45) Ondansetron Injection (Zofran Injectio (06/18/19 17:00) Manual Differential (06/18/19 16:25) Chest 1 View, Ap/Pa Only (06/18/19 17:24) Urine Culture (06/18/19 17:13) Medications Given in ED Current Medications Medications Dose Ordered Sig/Judi Route Start Time Stop Time Status Last Admin Dose Admin Ondansetron HCl 4 mg ONCE ONCE IVP 06/18/19 17:00 06/18/19 17:01 DC 06/18/19 17:00 4 MG Vital Signs/I&O 06/18/19 16:15 Temp 37.2 Pulse 87 Resp 18 B/P (MAP) 143/82 (102) Pulse Ox 98 Capillary Refill : Less Than 3 Seconds Blood Pressure Mean: 102 Progress Note : Time: 18:12 Progress Note The patient's laboratory and radiographic evaluation demonstrated a moderate anemia. The patient was given Zofran for nausea and fentanyl for pain. Patient's general dysphoria was improved but really not relieved with this treatment. Patient and her wished to be admitted for further control of her discomfort. Dr. Sales was kind enough to admit the patient to an observation bed. I placed a consult to Dr. Thomas in the morning. Departure Communication (Admissions) Time/Spoke to Admitting Phy: 18:13 Dr. Sales Impression Primary Impression: Chronic pain Qualified Codes: G89.3 - Neoplasm related pain (acute) (chronic) Additional Impression: Cancer Disposition: 09 ADMITTED INPATIENT Condition: Improved Admissions Decision to Admit Reason: Admit from ER (General) Decision to Admit/Date: Jun 18, 2019 Time/Decision to Admit Time: 18:14 Departure-Patient Inst. Referrals: MARIE LUNA DO (PCP/Family) Primary Care Physician AAKASH LOZANO MD Jun 18, 2019 16:55
[2019-06-18] MEDS ORDERED: ONDANSETRON 4 MG/2 ML (SDV) Z0FRAN IVP ONE ×2 (17:00→18:30)
[2019-06-18 17:07] LABS: ALBUMIN 3.5 GM/DL (3.2-4.5); BILIRUBIN,TOTAL 0.5 MG/DL (0.1-1.0); CREATININE SERUM 0.96 MG/DL (0.60-1.30); TOTAL PROTEIN 6.3 GM/DL (6.4-8.2)
[2019-06-18 17:19] LABS: ANISOCYTOSIS SLIGHT; HYPOCHROMASIA SLIGHT; LYMPHOCYTES % (MANUAL) 3 %; MONOCYTES % (MANUAL) 8 %; NEUTROPHILS % (MANUAL) 88 %; NUCLEATED RED BLOOD CELLS 1
[2019-06-18 17:19] LABS: BILIRUBIN,URINE NEGATIVE (NEGATIVE); CLARITY,URINE CLEAR; COLOR,URINE YELLOW; GLUCOSE, URINE (UA) NEGATIVE (NEGATIVE); KETONES,URINE NEGATIVE (NEGATIVE); LEUKOCYTE ESTERASE ,URINE 1+ (NEGATIVE); NITRITE,URINE NEGATIVE (NEGATIVE); PH,URINE 8 (5-9); PROTEIN,URINE 2+ (NEGATIVE)
[2019-06-18 17:20] LABS: MICROCYTOSIS SLIGHT; SPHEROCYTES SLIGHT; TOXIC GRANULATION/VACUOLAZATIO 1+
[2019-06-18 17:27] LABS: BACTERIA,URINE LARGE /HPF; TRIPLE PHOSPHATE CRYSTAL,UR LARGE /LPF; WBC,URINE 25-50 /HPF
[2019-06-18] MEDS ORDERED: fentaNYL INJECTION 100 MCG/2 ML AMP IVP ONE (18:15)
--- NOTE | 2019-06-18 18:33 | Diagnostic Imaging Report ---
Clinical indication: Patient cannot stop coughing. Patient has stage IV throat cancer. Exam: Portable chest x-ray upright view. Comparisons: Chest x-ray dated 06/23/2017. Findings: PICC line placed in the interim seen overlying the right chest region with tip in the distal superior vena cava. Lungs/pleura: Lungs are clear. There is no pneumothorax. There is no pleural effusion. Mediastinum: Unremarkable. Pulmonary vasculature: Unremarkable. Heart: Unremarkable. Bones/extrathoracic soft tissue: There is a high density area involving the thoracolumbar region which is suspected to represent kyphoplasty changes of a vertebroplasty which was noted on the prior study. Impression: There is no radiographic evidence of acute cardiopulmonary process. Dictated by: Dictated on workstation # [id number]
--- NOTE | 2019-06-18 19:15 | NUR ---
TOSHA LEVINE admitted to room 428-1, with an admitting diagnosis of DYSPHORIA 2ND TO CANCER & RX (CHEMO&RADIATION), on 06/18/19 from ED via ST[facility]CH[facility], accompanied by ED STAFF/BOYFRIEND.TOSHA LEVINE introduced to surroundings, call light, bed controls, phone, TV, temperature control, lights, meal times, smoking policy, visitor policy, side rail policy, bathrooms and showers. Patient Rights given to patient in the handbook.TOSHA LEVINE verbalizes understanding that [facility] is not responsible for the loss or damage to any personal effects or valuables that are kept in the patients posession during their hospitalization.
[2019-06-18 20:38] VITALS: BP 137/80
[2019-06-18 20:51] VITALS: BP 137/80
[2019-06-18] MEDS ORDERED: ENOXAPARIN 40 MG/0.4 ML (LOVENOX) SYR SC SCH (22:15)
[2019-06-18] MEDS: NS IV 1000 ML 1,000 ML IV SCH (22:41)
[2019-06-18] MEDS: ONDANSETRON 4 MG/2 ML (SDV) Z0FRAN IV PRN (22:42)
[2019-06-18] MEDS: fentaNYL INJECTION 100 MCG/2 ML AMP IV PRN (22:43)
[2019-06-19] VITALS: BP 139/77
[2019-06-19] MEDS: fentaNYL INJECTION 100 MCG/2 ML AMP IV PRN ×6 (01:37→19:12)
[2019-06-19] MEDS: ONDANSETRON 4 MG/2 ML (SDV) Z0FRAN IV PRN ×6 (01:38→19:12)
[2019-06-19 04:00] VITALS: BP 119/74
[2019-06-19 06:00] LABS: BASOPHILS % (AUTO) 0 % (0-10); EOSINOPHILS % (AUTO) 1 % (0-10); HEMATOCRIT 27 % (35-52); HEMOGLOBIN 8.9 G/DL (11.5-16.0); LYMPHOCYTES # (AUTO) 0.7 X 10^3 (1.0-4.0); LYMPHOCYTES % (AUTO) 16 % (12-44); MEAN CORPUSCULAR HEMOGLOBIN 32 PG (25-34); MEAN CORPUSCULAR HGB CONC 33 G/DL (32-36); MEAN CORPUSCULAR VOLUME 95 FL (80-99); MONOCYTES # (AUTO) 0.6 X 10^3 (0.0-1.0); MONOCYTES % (AUTO) 14 % (0-12); NEUTROPHILS % (AUTO) 69 % (42-75); PLATELET COUNT 251 10^3/uL (130-400); RED CELL DISTRIBUTION WIDTH 18.1 % (10.0-14.5); WHITE BLOOD COUNT 4.4 10^3/uL (4.3-11.0)
[2019-06-19 06:22] LABS: ALBUMIN 3.2 GM/DL (3.2-4.5); BILIRUBIN,TOTAL 0.4 MG/DL (0.1-1.0); CALCIUM 7.6 MG/DL (8.5-10.1); CREATININE SERUM 0.94 MG/DL (0.60-1.30); POTASSIUM 3.8 MMOL/L (3.6-5.0); TOTAL PROTEIN 5.6 GM/DL (6.4-8.2)
[2019-06-19 08:00] VITALS: BP 165/78
[2019-06-19] MEDS: NS IV 1000 ML 1,000 ML IV SCH ×2 (08:52→19:12)
[2019-06-19] MEDS ORDERED: SERT25TA5 PO (10:13)
[2019-06-19] MEDS ORDERED: BRIM5DRO2 OU (10:13)
[2019-06-19] MEDS ORDERED: INSU100I34 SC (10:13)
[2019-06-19] MEDS ORDERED: OXYC10TA7 PO (10:13)
[2019-06-19] MEDS ORDERED: LATA2.5D5 OU (10:13)
[2019-06-19] MEDS ORDERED: LIDO15SO2 PO (10:13)
[2019-06-19] MEDS ORDERED: ONDA8TAB13 PO (10:13)
[2019-06-19] MEDS ORDERED: PROC10TA10 PO (10:13)
[2019-06-19] MEDS ORDERED: DOXY100C42 PO (10:13)
[2019-06-19] MEDS ORDERED: MAGN400T39 PO (10:14)
[2019-06-19] MEDS ORDERED: MAGIC MOUTH WASH PO (10:21)
--- NOTE | 2019-06-19 10:23 | NUR ---
SPOKE WITH PT WELL GOING THRU THE EXT MED HISTORY TO COMPLETE THE MED REC. PT WAS ABLE TO TELL ME HOW/WHEN SHE TAKES ALL HER MEDS AND EVERYTHING MATCHES THE EXT MED HISTORY. PLEASE NOTE ON THE EXT MED HISTORY IS SHOWS MAGIC MOUTHWASH 1 ENTRY AND LIDOCAINE SUSP 1 ENTRY- I CALLED [facility] TO VERIFY THAT 1 MED AND SHE DID NOT GET LIDCAINE SEPARATELY. OTC MEDS: BENADRYL: 1 BID PRN ASPERCREME: UD PRN
[2019-06-19] MEDS: ENOXAPARIN 40 MG/0.4 ML (LOVENOX) SYR SC SCH ×2 (11:43→21:49)
[2019-06-19 12:00] VITALS: BP 127/97
--- NOTE | 2019-06-19 12:02 | History & Physical-Hospitalist ---
History of Present Illness HPI/Chief Complaint Pt is a 63yoCF with a PMH of IDDMII, HTN, and "stage 4 throat cancer" who presented to the ER due to weakness and nausea. She states she had chemotherapy on 06/14 along with radiation and since then has not felt well. She has been having difficulty swallowing and thought she was dehydrated. This morning she states she is feeling better and is still nauseated but believes that to be due to hunger and is requesting advancing her diet. She otherwise has no complaints. Source: patient Date Seen 06/19/19 Time Seen by a Provider: 11:15 Attending Physician Milagro Sales MD PCP Huber Ayoub DO Referring Physician Date of Admission Jun 18, 2019 at 18:07 Home Medications & Allergies Home Medications Reviewed patient Home Medication Reconciliation performed by pharmacy medication reconciliations office automation technician and/or nursing. Patients Allergies have been reviewed. Allergies Allergies Uncoded Allergies TAPE ( Allergy, Intermediate, 11/11/14) Past Pruriap-Dfpwvb-Lafddp Hx Past Med/Social Hx: Reviewed Nursing Past Med/Soc Hx Patient Social History Alcohol Use: Denies Use Recreational Drug Use: No Smoking Status: Former Smoker Former Smoker, Quit: Jul 14, 2011 Type Used: Cigarettes 2nd Hand Smoke Exposure: No Physical Abuse Screen: No Sexual Abuse: No Recent Foreign Travel: No Contact w/other who traveled: No Recent Hopitalizations: No Recent Infectious Disease Expo: No Immunizations Up To Date Date of Pneumonia Vaccine: Jul 14, 2012 Date of Influenza Vaccine: May 12, 2017 Seasonal Allergies Seasonal Allergies: Yes Past Medical History Surgeries: Abdominal, Appendectomy, Cardiac, Eye Surgery, Hysterectomy, Vascular Surgery Respiratory: Asthma Currently Using CPAP: No Currently Using BIPAP: No Cardiac: Coronary Artery Disease, Hypertension, Peripheral Vascular Neurological: Stroke Reproductive: No Sexually Transmitted Disease: No HIV/AIDS: No 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 Disorders: Denies Menopausal Genitourinary: Renal Failure, UTI-Chronic Gastrointestinal: Chronic Constipation Musculoskeletal: Back Injury, Chronic Back Pain, Fractures Endocrine: Diabetes, Insulin dep HEENT: Cataract, Glaucoma Hearing Impairment: Hard of Hearing Psychosocial: Anxiety History of Blood Disorders: No Family History Diabetes mellitus G8 BROTHER FH: skin cancer 19 FATHER Hypertension Review of Systems Constitutional: No chills, No fever; weakness EENTM: see HPI Respiratory: No cough, No hemoptysis, No short of breath Cardiovascular: no symptoms reported Gastrointestinal: nausea Genitourinary: no symptoms reported Musculoskeletal: no symptoms reported Skin: no symptoms reported Psychiatric/Neurological: No Symptoms Reported Physical Exam Physical Exam Vital Signs Vital Signs - First Documented 06/18/19 06/18/19 16:15 20:00 Temp 37.2 Pulse 87 Resp 18 B/P (MAP) 143/82 (102) Pulse Ox 98 O2 Delivery Room Air Capillary Refill : Less Than 3 SecondsLess Than 3 Seconds Height, Weight, BMI Height: 5'5.00" Weight: 280lbs. 0.0oz. 127.558218vt; 40.82 BMI Method:Stated General Appearance: No Apparent Distress, WD/WN HEENT: Moist Mucous Membranes; No Scleral Icterus (L), No Scleral Icterus (R) Neck: Normal Inspection, Supple Respiratory: Lungs Clear, No Accessory Muscle Use, No Respiratory Distress Cardiovascular: Regular Rate, Rhythm, No Murmur Gastrointestinal: Normal Bowel Sounds, Non Tender, Soft Extremity: No Calf Tenderness, Pedal Edema (trace) Neurologic/Psychiatric: Alert, Oriented x3, Normal Mood/Affect Skin: Erythema (radiation dermatitis noted on neck) Results Results/Procedures Labs Laboratory Tests 06/18/19 16:25 06/19/19 05:50 Patient resulted labs reviewed. Imaging: Reviewed Imaging Report Assessment/Plan Admission Diagnosis Dehydration Admission Status: Observation Assessment and Plan Dehydration secondary to chemotherapy Metastatic Cancer IVF Zofran for nausea Advance diet, if tolerates well can DC home Follows with oncology at [facility] Resume home meds when able HTN BP well controlled but volume deplete- hold meds for now Clinical Quality Measures DVT/VTE Risk/Contraindication: Risk Factor Score Per Nursin RFS Level Per Nursing on Admit: 2=Moderate MICHELINE BRISCOE MD Jun 19, 2019 12:02
--- NOTE | 2019-06-19 14:00 | NUR ---
Pastoral care visit.
--- NOTE | 2019-06-19 14:39 | Discharge Inst-Simple/Standard ---
Discharge Inst-Standard Patient Instructions/Follow Up Plan of Care/Instructions/FU: Please continue to take your medications as written. Please follow up with your PCP in 1-2 weeks and with your oncologist as scheduled. Activity as Tolerated: Yes Discharge Diet: No Restrictions Return to The Hospital For: Confusion, abdominal pain, chest pain, shortness of breath, inability to keep up your oral intake, if you feel you are getting worse. MICHELINE BRISCOE MD Jun 19, 2019 14:39
--- NOTE | 2019-06-19 15:55 | NUR ---
"RD ASSESSMENT PMHx: CA(head/throat); CAD; HTN; DM; stroke; renal failure; chronic ulcers (foot/leg); chronic constipation PT INTERACTION: Pt was awake and pleasant during nutrition assessment. Pt states current appetite is pretty poor and has been for sometime, attributing it to recent diagnosis of CA. Pt states following a regular diet at home, and she current has no recent issues with chewing/swallowing food. Pt states always being in a state of nausea due to tx for CA, but with no episodes of emesis. Pt states recent issues with constipation, and states last BM was a few days ago. Pt states recent 40# wt loss x2mon. Note 26# wt loss x2mon, per chart review. Upon visual exam, pt appears to be very well-nourished with BMI of 40.8. While this is signficant wt loss, pt does not meet criteria for malnutrition, per ASPEN guidelines. If poor po intake, continues, pt is at risk for malnutrition. ABNORMAL NUTRITION-RELATED LAB VALUES: Ca 7.6 (L); Pro 5.6 (L) Est. kcal needs: 4972-4641 kcal (20-25 kcal/kg) Est. Pro needs: 114-135 g Pro (1.0-1.2 g Pro/kg) PES STATEMENT: Inadequate oral intake (NI-2.1) related to CA diagnosis | loss of appetite as evidenced by pt interview INTERVENTION: Continue with current diet order of Regular diet. Add Ensure HP (vary) to meals BID. Provides 160 kcal and 16 g Pro per serving. Encouraged pt to eat when able. MONITOR/EVALUATE: PO Intake; Plan of Care; Hydration Status; Weight Status; Lab Values Eriberto Nicholas, MS, RD, LD Ext. 133"
[2019-06-19 16:00] VITALS: BP 177/63
[2019-06-19] MEDS ORDERED: PROCHLORPERAZINE 10 MG TAB (COMPAZINE) PO PRN (17:00)
[2019-06-19] MEDS ORDERED: NON-FORMULARY MEDICATION 1 EA EA (Oxycodone HCl 10 MG) PO PRN (17:00)
[2019-06-19] MEDS ORDERED: MAGIC MOUTH WASH PO PRN (17:00)
[2019-06-19] MEDS ORDERED: ALPRAZolam 1 MG (XANAX) TAB PO PRN (17:00)
[2019-06-19] MEDS ORDERED: diphenhydrAMINE 25 MG TAB (BENADRYL) PO PRN (17:00)
[2019-06-19 20:00] VITALS: BP 123/63
[2019-06-19] MEDS ORDERED: VISC LIDOCAINE/ANTACID/DIPHENHYDRAMINE 1:1:1 120 ML PO PRN ×3 (20:00)
[2019-06-19] MEDS ORDERED: cefTRIAXone FOR IV USE 1,000 MG in WATER (STERILE) FOR INJECTION 10 ML IV SCH (20:30)
[2019-06-19] MEDS: GABAPENTIN 600 MG (NEURONTIN) TAB PO SCH (20:54)
[2019-06-19] MEDS: DOXYCYCLINE 100 MG (VIBRAMYCIN) TABLET PO SCH (20:54)
[2019-06-19] MEDS: HYDROcodone/APAP 10 MG/325 MG (LORTAB) TAB PO PRN (20:55)
[2019-06-19] MEDS ORDERED: LATANOPROST 0.005% (XALATAN) OPHTH SOLN 2.5 ML OU SCH (21:00)
[2019-06-19] MEDS ORDERED: NON-FORMULARY MEDICATION 1 EA EA (Doxycycline Monohydrate 100 MG) PO SCH (21:00)
[2019-06-19] MEDS ORDERED: TEMAZEPAM 15 MG (RESTORIL) CAP PO SCH (21:00)
[2019-06-19] MEDS ORDERED: NON-FORMULARY MEDICATION 1 EA EA (Brimonidine Tartrate (Alphagan P) 1 DROP) OU SCH (21:00)
[2019-06-19] MEDS ORDERED: NON-FORMULARY MEDICATION 1 EA EA (Temazepam 15 MG) PO SCH (21:00)
[2019-06-19] MEDS ORDERED: NON-FORMULARY MEDICATION 1 EA EA (Bupropion HCl (Bupropion HCl Sr) 150 MG) PO SCH (21:00)
[2019-06-19] MEDS: BRIMONIDINE 0.2% (ALPHAGAN) OPHTH SOLN 5 ML BTL OU SCH (21:03)
[2019-06-19] MEDS: buPROPion SR 150 MG (WELLBUTRIN SR) TAB PO SCH (21:11)
--- NOTE | 2019-06-19 22:53 | CONSULTATION REPORT ---
DATE OF SERVICE: 06/19/2019 The patient is admitted to room 417. PHYSICIAN REQUESTING CONSULTATION: Sailaja Marx MD. IMPRESSION: 1. A 63-year-old female admitted to the hospital with dysphagia for a few days and increasing weakness. History of squamous cell carcinoma of base of tongue, stage TATIANNA and HPV p16 positive. The patient has been undergoing combined chemoradiation using weekly cisplatin and daily radiation therapy for seven to eight weeks and completed treatments on 06/14/2019 at [facility] in [place]. 2. Significant mucositis causing dysphagia. Continue IV fluids for hydration and increase oral intake as tolerated initially with thin liquids to all liquids and soft foods as tolerated. 3. Pain control as necessary for the mucositis. 4. Nutritional supplements with either Ensure or Ensure Clear as tolerated. 5. Continue followup with medical oncology and radiation oncology for restaging and surveillance as she just completed chemoradiation. BRIEF HISTORY: The patient is a 63-year-old female who was seen at the emergency room with difficulty swallowing for few days with increasing weakness. 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 She completed all treatments on 06/14/2019. She complained of increasing weakness and difficulty swallowing following this, and has not been able to drink adequate amount of liquids or get enough calories in. She does not have a gastrostomy tube. Because of the pain and difficulty getting nutrition in, she was admitted to the hospital. A medical oncology consultation was obtained for further recommendations. PAST MEDICAL HISTORY: Significant for diagnosis of squamous cell carcinoma of base of tongue with cervical lymph node metastasis. She underwent excisional biopsy of a right lower cervical lymph node followed by combined chemoradiation as mentioned above. She got significant mucositis causing dysphagia. She gives history of diabetes mellitus type 2, but insulin requiring. She has hypertension for several years and coronary artery disease with an episode of RI and an episode of CVA several years ago, but has recovered from without any sequelae. She has history of back injury and chronic back pain. History of glaucoma. She got the history of Charcot foot on left. She has had gastric bypass surgery in the past. PAST SURGICAL HISTORY: Bilateral cataract surgery, appendectomy, hysterectomy, recent neck lymph node excisional biopsy. SOCIAL HISTORY: The patient is and is living alone in [facility]. She has a son who lives in [place] and two daughters, one of whom lives in [place] and one in [place]. She has no other family close by. She has significant history of tobacco use, smoking two to three packs of cigarettes a day for close to 30 to 40 years, but quit smoking more than 12 years ago. Denied any alcohol or other recreational drug use. 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 FAMILY HISTORY: Significant for hypertension in her father, diabetes mellitus in her brother. PHYSICAL EXAMINATION: GENERAL: Showed an elderly female, obese, weak appearing, awake and oriented and in mild discomfort because of throat pain and dysphagia. VITAL SIGNS: Temperature was 36.2, pulse rate of 69, respirations 16, blood pressure 177/63 with oxygen saturation 95% on room air. HEENT: Normocephalic, extraocular muscles intact, oral mucosa is slightly dry with no evidence of thrush. Evidence of radiation changes on the neck. There is induration around the right neck from the site of previous biopsy, but no definite lymphadenopathy palpable. CHEST: Symmetrical. LUNGS: Slightly diminished breath sounds bilaterally. No wheezes or rales heard. CARDIOVASCULAR: Regular in rate and rhythm. No murmurs or gallops heard. ABDOMEN: Obese, soft, nontender with no hepatosplenomegaly or other masses palpable. EXTREMITIES: Showed chronic changes of the left foot without an open lesion or drainage. NEUROLOGIC: Showed no focal motor deficits. Overall, motor strength was 4/5 bilaterally. LABORATORY DATA: CBC done today showed WBC 4.4, hemoglobin 8.9, MCV 95, platelet count 251,000 with neutrophil count 3.0 and lymphocyte count 0.7. Chemistry panel today showed normal electrolytes. BUN was 14 and creatinine 0.94 with GFR of 60 mL per minute. Corrected calcium was 8.2. Liver function studies were within normal limits including albumin level of 3.2. Urinalysis showed 1+ leukocyte esterase, 25 to 50 WBCs, large amount of bacteria with the preliminary culture report showing more than 100,000 colonies of Proteus mirabilis. Chest x-ray was unremarkable with no radiographic evidence of acute cardiopulmonary process. Thank you for allowing me to participate in this patient's care. I will follow the patient with you and make appropriate recommendations. Job ID: [id number] DocumentID: [id number] Dictated Date: 06/19/2019 19:11:46 Hoop Coiler Date: 06/19/2019 22:52:44 Dictated By: MARTHA STARR MD
[2019-06-20 00:36] VITALS: BP 126/73
[2019-06-20] MEDS: NS IV 1000 ML 1,000 ML IV SCH ×2 (03:42→04:00)
[2019-06-20] MEDS: fentaNYL INJECTION 100 MCG/2 ML AMP IV PRN (04:00)
[2019-06-20] MEDS: ONDANSETRON 4 MG/2 ML (SDV) Z0FRAN IV PRN (04:00)
[2019-06-20 04:05] VITALS: BP 185/83
[2019-06-20] MEDS: GABAPENTIN 600 MG (NEURONTIN) TAB PO SCH (05:53)
[2019-06-20] MEDS: buPROPion SR 150 MG (WELLBUTRIN SR) TAB PO SCH (05:53)
[2019-06-20] MEDS ORDERED: LEVOTHYROXINE 25 MCG (LEVOTHROID) TAB PO SCH (06:30)
[2019-06-20 08:00] VITALS: BP 119/71
[2019-06-20] MEDS: DOXYCYCLINE 100 MG (VIBRAMYCIN) TABLET PO SCH (08:30)
[2019-06-20] MEDS: BRIMONIDINE 0.2% (ALPHAGAN) OPHTH SOLN 5 ML BTL OU SCH (08:31)
[2019-06-20] MEDS: HYDROcodone/APAP 10 MG/325 MG (LORTAB) TAB PO PRN (08:34)
[2019-06-20] MEDS ORDERED: lisINopril 40 MG (PRINIVIL) TABLET PO SCH (09:00)
[2019-06-20] MEDS ORDERED: SERTRALINE 50 MG (ZOLOFT) TABLET PO SCH (09:00)
[2019-06-20] MEDS ORDERED: NON-FORMULARY MEDICATION 1 EA EA (Amlodipine Besylate 5 MG) PO SCH (09:00)
[2019-06-20] MEDS ORDERED: NON-FORMULARY MEDICATION 1 EA EA (Sertraline HCl 25 MG) PO SCH (09:00)
[2019-06-20] MEDS ORDERED: amLODIPine 5 MG (NORVASC) TAB PO SCH (09:00)
--- NOTE | 2019-06-20 09:00 | Discharge Summary ---
Diagnosis/Chief Complaint Date of Admission Jun 18, 2019 at 18:07 Date of Discharge Discharge Date: Jun 19, 2019 Admission Diagnosis Dehydration Primary Care Marie Luna DO Discharge Summary Procedures/Consulations Dr Roy - oncology Discharge Physical Exam Allergies: Uncoded Allergies: TAPE (Allergy, Intermediate, 11/11/14) Vitals & I&Os Vital Signs Date Time Temp Pulse Resp B/P (MAP) Pulse Ox O2 Delivery O2 Flow Rate FiO2 06/20/19 10:30 36.2 75 18 119/71 97 Room Air General Appearance: No Apparent Distress, Chronically ill Neurologic/Psychiatric: Alert, Oriented x3 Hospital Course Pt was admitted due to generalized weakness and dehydration following chemo and radiation. She was treated with IVF, antiemetics, and magic mouthwash for mucositis and responded well. she had an otherwise uneventful hospital course. She was discharged home in stable condition to follow up with her PCP Dr. Luna in 1 week and with her oncologist as scheduled. Labs (last 24 hrs) Microbiology 06/18/19 Blood Culture - Preliminary, Resulted No growth 06/18/19 Urine Culture - Final, Complete Proteus mirabilis Patient resulted labs reviewed. Imaging: Reviewed Imaging Report Discussion & Recommendations Discharge Planning: <30 minutes discharge planning Discharge Home Medications: Active Scripts Active Keflex (Cephalexin) 500 Mg Capsule 500 Mg PO BID Reported [Magic Mouth Wash] Suspension 5-10 Ml PO Q4H PRN Magnesium (Magnesium Oxide) 400 Mg Tablet 400 Mg PO BID Sertraline HCl 25 Mg Tablet 25 Mg PO DAILY Oxycodone HCl 10 Mg Tablet 10 Mg PO Q6H PRN Ondansetron Odt (Ondansetron) 8 Mg Tab.rapdis 8 Mg PO Q8H PRN Basaglar Kwikpen U-100 (Insulin Glargine,Hum.rec.anlog) 100 Unit/1 Ml Insuln.pen 80 Units SC HS Latanoprost 2.5 Ml Drops 1 Drop OU HS Alphagan P (Brimonidine Tartrate) 5 Ml Drops 1 Drop OU TID Prochlorperazine Maleate 10 Mg Tablet 10 Mg PO Q6H PRN Doxycycline Monohydrate 100 Mg Capsule 100 Mg PO BID PICKED UP A 14 DAY SUPPLY ON 06-14-2019 Hydrocodon-Acetaminophn 10-325 (Hydrocodone/Acetaminophen) 1 Each Tablet 1 Each PO Q6H PRN Bupropion HCl Sr (Bupropion HCl) 150 Mg Tablet.er 150 Mg PO BID Lipitor (Atorvastatin Calcium) 10 Mg Tablet 10 Mg PO DAILY Amlodipine Besylate 5 Mg Tablet 5 Mg PO DAILY Lisinopril 40 Mg Tablet 40 Mg PO DAILY Diphenhydramine HCl 25 Mg Tablet 25 Mg PO Q12H PRN Aspercreme (Lidocaine HCl) 76.5 Gm Cream..g. TP QID PRN Alprazolam 1 Mg Tablet 1 Mg PO QID PRN Gabapentin 600 Mg Tablet 600 Mg PO BID Levothyroxine Sodium 25 Mcg Tablet 25 Mcg PO DAILY Temazepam 15 Mg Capsule 15 Mg PO HS Instructions to patient/family Please see electronic discharge instructions given to patient. Clinical Quality Measures DVT/VTE Risk/Contraindication: Risk Factor Score Per Nursin RFS Level Per Nursing on Admit: 2=Moderate Copy Copies To 1: MARIE LUNA KATELYN M MD Jun 20, 2019 09:00
[2019-06-20] MEDS ORDERED: CEPH-507 PO (09:13)
[2019-06-20 10:30] VITALS: BP 119/71
--- NOTE | 2019-06-20 10:30 | NUR ---
TOSHA LEVINE demonstrates understanding of discharge instructions and accurately returns instructions upon questioning. Copy of Post-Discharge Instructions given to PT. TOSHA LEVINE is able to manage continuing needs after discharge. Patients belongings returned to PT. Patient discharged from [facility] on 06/20/19 at 1030. TOSHA LEVINE left floor via W/C, accompanied by STAFF AND CAREGIVER.
== END 2019-06-20 10:30 | disposition home or self-care (01) ==
LOC: EDUNIT# 16:11 → ER 16:12 → 4TH 18:07
PROVIDERS: ADMIT Internal Medicine; ATTEND Internal Medicine
DX: G89.3 Neoplasm related pain (acute) (chronic) (principal); C32.9 Malignant neoplasm of larynx, unspecified; T45.1X5A Adverse effect of antineoplastic and immunosuppressive drugs, initial encounter; E86.0 Dehydration; R13.10 Dysphagia, unspecified; I25.10 Atherosclerotic heart disease of native coronary artery without angina pectoris; I10 Essential (primary) hypertension; N39.0 Urinary tract infection, site not specified; N19 Unspecified kidney failure; K59.09 Other constipation; G89.29 Other chronic pain; M54.9 Dorsalgia, unspecified; E11.51 Type 2 diabetes mellitus with diabetic peripheral angiopathy without gangrene; F41.9 Anxiety disorder, unspecified; Z91.048 Other nonmedicinal substance allergy status; Z79.82 Long term (current) use of aspirin; Z79.899 Other long term (current) drug therapy; Z79.891 Long term (current) use of opiate analgesic; Z30.9 Encounter for contraceptive management, unspecified; Z90.89 Acquired absence of other organs; Z90.710 Acquired absence of both cervix and uterus; Z80.8 Family history of malignant neoplasm of other organs or systems; Z83.3 Family history of diabetes mellitus; Z82.49 Family history of ischemic heart disease and other diseases of the circulatory system
CPT/HCPCS: 36415; 71045; 80053; 81000; 82962; 83605; 85007; 85025; 85027; 87040; 87077; 87088; 87186; 99211; G0378

== ENCOUNTER → 2019-06-21 | Outpatient (CLI) | payer MEDICARE, MEDICAID ==
[~2019-06-21] MED LIST changes: +BRIM5DRO2 OU; +CEPH-507 PO; +DOXY100C42 PO; +INSU100I34 SC; +LATA2.5D5 OU; +LIDO15SO2 PO; +MAGIC MOUTH WASH PO; +MAGN400T39 PO; +ONDA8TAB13 PO; +PROC10TA10 PO; +SERT25TA5 PO
== END ==
LOC: WOUNDCARE 09:49
PROVIDERS: ATTEND Surgery
DX: E11.621 Type 2 diabetes mellitus with foot ulcer (principal); E11.42 Type 2 diabetes mellitus with diabetic polyneuropathy; E11.65 Type 2 diabetes mellitus with hyperglycemia; L97.422 Non-pressure chronic ulcer of left heel and midfoot with fat layer exposed; M14.672 Charcot's joint, left ankle and foot; E66.01 Morbid (severe) obesity due to excess calories; I70.244 Atherosclerosis of native arteries of left leg with ulceration of heel and midfoot; E11.52 Type 2 diabetes mellitus with diabetic peripheral angiopathy with gangrene
CPT/HCPCS: 11042

== ENCOUNTER → 2019-06-28 | Outpatient (CLI) | payer MEDICARE, MEDICAID | LOC: WOUNDCARE 09:27 | PROVIDERS: ATTEND Surgery | DX: E11.621 Type 2 diabetes mellitus with foot ulcer (principal); E11.42 Type 2 diabetes mellitus with diabetic polyneuropathy; E11.65 Type 2 diabetes mellitus with hyperglycemia; L97.422 Non-pressure chronic ulcer of left heel and midfoot with fat layer exposed; M14.672 Charcot's joint, left ankle and foot; E66.01 Morbid (severe) obesity due to excess calories; I70.244 Atherosclerosis of native arteries of left leg with ulceration of heel and midfoot; E11.52 Type 2 diabetes mellitus with diabetic peripheral angiopathy with gangrene | CPT/HCPCS: 11042 ==

== ENCOUNTER → 2019-07-07 | Outpatient (CLI) | payer MEDICARE, MEDICAID | LOC: WOUNDCARE 09:24 | PROVIDERS: ATTEND Surgery | DX: E11.621 Type 2 diabetes mellitus with foot ulcer (principal); E11.42 Type 2 diabetes mellitus with diabetic polyneuropathy; L97.422 Non-pressure chronic ulcer of left heel and midfoot with fat layer exposed; M14.672 Charcot's joint, left ankle and foot; E66.01 Morbid (severe) obesity due to excess calories; E44.1 Mild protein-calorie malnutrition; E11.52 Type 2 diabetes mellitus with diabetic peripheral angiopathy with gangrene | CPT/HCPCS: 11042 ==

== ENCOUNTER → 2019-07-19 | Outpatient (CLI) | payer MEDICARE, MEDICAID | LOC: WOUNDCARE 09:52 | PROVIDERS: ATTEND Surgery | DX: E11.621 Type 2 diabetes mellitus with foot ulcer (principal); E11.42 Type 2 diabetes mellitus with diabetic polyneuropathy; L97.422 Non-pressure chronic ulcer of left heel and midfoot with fat layer exposed; M14.672 Charcot's joint, left ankle and foot; E66.01 Morbid (severe) obesity due to excess calories; E44.1 Mild protein-calorie malnutrition; E11.52 Type 2 diabetes mellitus with diabetic peripheral angiopathy with gangrene | CPT/HCPCS: 11042 ==

== ENCOUNTER → 2019-07-24 | Outpatient (CLI) | payer MEDICARE, MEDICAID | LOC: WOUNDCARE 14:17 | PROVIDERS: ATTEND Surgery | DX: E11.621 Type 2 diabetes mellitus with foot ulcer (principal); E11.42 Type 2 diabetes mellitus with diabetic polyneuropathy; E11.610 Type 2 diabetes mellitus with diabetic neuropathic arthropathy; E11.52 Type 2 diabetes mellitus with diabetic peripheral angiopathy with gangrene; I96 Gangrene, not elsewhere classified; L97.422 Non-pressure chronic ulcer of left heel and midfoot with fat layer exposed; E66.01 Morbid (severe) obesity due to excess calories; E44.1 Mild protein-calorie malnutrition | CPT/HCPCS: 11042 ==

== ENCOUNTER → 2019-07-26 | Outpatient (CLI) | payer MEDICARE, MEDICAID | LOC: WOUNDCARE 09:49 | PROVIDERS: ATTEND Surgery | DX: E11.621 Type 2 diabetes mellitus with foot ulcer (principal); E11.42 Type 2 diabetes mellitus with diabetic polyneuropathy; L97.422 Non-pressure chronic ulcer of left heel and midfoot with fat layer exposed; M14.672 Charcot's joint, left ankle and foot; E66.01 Morbid (severe) obesity due to excess calories; E44.1 Mild protein-calorie malnutrition | CPT/HCPCS: 11042; 87070; 87077; 87181; 87186; 87205 ==

== ENCOUNTER → 2019-08-02 | Outpatient (CLI) | payer MEDICARE, MEDICAID | LOC: WOUNDCARE 09:36 | PROVIDERS: ATTEND Surgery | DX: E11.621 Type 2 diabetes mellitus with foot ulcer (principal); E11.42 Type 2 diabetes mellitus with diabetic polyneuropathy; E11.610 Type 2 diabetes mellitus with diabetic neuropathic arthropathy; E11.52 Type 2 diabetes mellitus with diabetic peripheral angiopathy with gangrene; I96 Gangrene, not elsewhere classified; L97.422 Non-pressure chronic ulcer of left heel and midfoot with fat layer exposed; A52.16 Charcot's arthropathy (tabetic); E66.01 Morbid (severe) obesity due to excess calories; E44.1 Mild protein-calorie malnutrition | CPT/HCPCS: 11042 ==

== ENCOUNTER → 2019-08-09 | Outpatient (CLI) | payer MEDICARE, MEDICAID | LOC: WOUNDCARE 10:19 | PROVIDERS: ATTEND Surgery | DX: E11.621 Type 2 diabetes mellitus with foot ulcer (principal); E11.42 Type 2 diabetes mellitus with diabetic polyneuropathy; E11.52 Type 2 diabetes mellitus with diabetic peripheral angiopathy with gangrene; L97.412 Non-pressure chronic ulcer of right heel and midfoot with fat layer exposed; M14.672 Charcot's joint, left ankle and foot; E66.01 Morbid (severe) obesity due to excess calories; E44.1 Mild protein-calorie malnutrition | CPT/HCPCS: 15275 ==

== ENCOUNTER → 2019-08-09 | Outpatient (CLI) | payer MEDICARE, MEDICAID | LOC: LAB 10:02 | PROVIDERS: ATTEND Surgery | DX: E46 Unspecified protein-calorie malnutrition (principal) | CPT/HCPCS: 36415; 84134 ==

== ENCOUNTER → 2019-08-16 | Outpatient (CLI) | payer MEDICARE, MEDICAID | LOC: WOUNDCARE 10:10 | PROVIDERS: ATTEND Surgery | DX: E11.621 Type 2 diabetes mellitus with foot ulcer (principal); E11.42 Type 2 diabetes mellitus with diabetic polyneuropathy; L97.422 Non-pressure chronic ulcer of left heel and midfoot with fat layer exposed; M14.672 Charcot's joint, left ankle and foot; E66.01 Morbid (severe) obesity due to excess calories; E44.1 Mild protein-calorie malnutrition; E11.52 Type 2 diabetes mellitus with diabetic peripheral angiopathy with gangrene | CPT/HCPCS: 11042 ==

== ENCOUNTER → 2019-08-25 | Outpatient (CLI) | payer MEDICARE, MEDICAID | LOC: WOUNDCARE 09:47 | PROVIDERS: ATTEND Surgery | DX: E11.621 Type 2 diabetes mellitus with foot ulcer (principal); L97.422 Non-pressure chronic ulcer of left heel and midfoot with fat layer exposed; E11.42 Type 2 diabetes mellitus with diabetic polyneuropathy; M14.672 Charcot's joint, left ankle and foot; E66.01 Morbid (severe) obesity due to excess calories | CPT/HCPCS: 11042 ==

== ENCOUNTER → 2019-09-07 | Outpatient (CLI) | payer MEDICARE, MEDICAID | LOC: LAB 14:35 | PROVIDERS: ATTEND Orthopaedic Surgery Hand Surgery | DX: E11.621 Type 2 diabetes mellitus with foot ulcer (principal); E11.42 Type 2 diabetes mellitus with diabetic polyneuropathy; L97.422 Non-pressure chronic ulcer of left heel and midfoot with fat layer exposed; M14.672 Charcot's joint, left ankle and foot; E66.01 Morbid (severe) obesity due to excess calories | CPT/HCPCS: 36415; 83036 ==

== ENCOUNTER → 2019-09-07 | Outpatient (CLI) | payer MEDICARE, MEDICAID | LOC: WOUNDCARE 13:49 | PROVIDERS: ATTEND Orthopaedic Surgery Hand Surgery | DX: E11.621 Type 2 diabetes mellitus with foot ulcer (principal); E11.52 Type 2 diabetes mellitus with diabetic peripheral angiopathy with gangrene; E11.42 Type 2 diabetes mellitus with diabetic polyneuropathy; A52.16 Charcot's arthropathy (tabetic); E66.01 Morbid (severe) obesity due to excess calories; L97.422 Non-pressure chronic ulcer of left heel and midfoot with fat layer exposed; I96 Gangrene, not elsewhere classified | CPT/HCPCS: 11042 ==

== ENCOUNTER → 2019-09-12 | Outpatient (CLI) | payer MEDICARE, MEDICAID ==
[~2019-09-12] MED LIST changes: +DIAZ5TAB49 PO
== END ==
LOC: WOUNDCARE 10:48
PROVIDERS: ATTEND Orthopaedic Surgery Hand Surgery
DX: E11.621 Type 2 diabetes mellitus with foot ulcer (principal); E11.42 Type 2 diabetes mellitus with diabetic polyneuropathy; E11.52 Type 2 diabetes mellitus with diabetic peripheral angiopathy with gangrene; E11.610 Type 2 diabetes mellitus with diabetic neuropathic arthropathy; L97.422 Non-pressure chronic ulcer of left heel and midfoot with fat layer exposed; A52.16 Charcot's arthropathy (tabetic); E66.01 Morbid (severe) obesity due to excess calories; I96 Gangrene, not elsewhere classified; Z68.38 Body mass index [BMI] 38.0-38.9, adult
CPT/HCPCS: 11042

== ENCOUNTER → 2019-09-14 | Outpatient (CLI) | payer MEDICARE, MEDICAID | LOC: WOUNDCARE 09:41 | PROVIDERS: ATTEND Orthopaedic Surgery Hand Surgery | DX: E11.621 Type 2 diabetes mellitus with foot ulcer (principal); L97.422 Non-pressure chronic ulcer of left heel and midfoot with fat layer exposed; E11.42 Type 2 diabetes mellitus with diabetic polyneuropathy; E66.01 Morbid (severe) obesity due to excess calories; E44.1 Mild protein-calorie malnutrition | CPT/HCPCS: 29445 ==

== ENCOUNTER → 2019-09-19 | Outpatient (CLI) | payer MEDICARE, MEDICAID | LOC: WOUNDCARE 09:33 | PROVIDERS: ATTEND Orthopaedic Surgery Hand Surgery | DX: E11.621 Type 2 diabetes mellitus with foot ulcer (principal); E11.42 Type 2 diabetes mellitus with diabetic polyneuropathy; L97.422 Non-pressure chronic ulcer of left heel and midfoot with fat layer exposed; E66.01 Morbid (severe) obesity due to excess calories; M14.672 Charcot's joint, left ankle and foot | CPT/HCPCS: 11042; 87070; 87205 ==

== ENCOUNTER → 2019-09-26 | Outpatient (CLI) | payer MEDICARE, MEDICAID | LOC: WOUNDCARE 09:33 | PROVIDERS: ATTEND Orthopaedic Surgery Hand Surgery | DX: L97.422 Non-pressure chronic ulcer of left heel and midfoot with fat layer exposed (principal); E11.621 Type 2 diabetes mellitus with foot ulcer; E11.42 Type 2 diabetes mellitus with diabetic polyneuropathy; E66.01 Morbid (severe) obesity due to excess calories; M14.672 Charcot's joint, left ankle and foot; B95.8 Unspecified staphylococcus as the cause of diseases classified elsewhere | CPT/HCPCS: 11042 ==

== ENCOUNTER → 2019-10-03 | Outpatient (CLI) | payer MEDICARE, MEDICAID | LOC: WOUNDCARE 09:45 | PROVIDERS: ATTEND Orthopaedic Surgery Hand Surgery | DX: E11.621 Type 2 diabetes mellitus with foot ulcer (principal); E11.42 Type 2 diabetes mellitus with diabetic polyneuropathy; L97.422 Non-pressure chronic ulcer of left heel and midfoot with fat layer exposed; E66.01 Morbid (severe) obesity due to excess calories; M14.672 Charcot's joint, left ankle and foot; B95.8 Unspecified staphylococcus as the cause of diseases classified elsewhere | CPT/HCPCS: 29445 ==

== ENCOUNTER → 2019-10-10 | Outpatient (CLI) | payer MEDICARE, MEDICAID | LOC: WOUNDCARE 09:22 | PROVIDERS: ATTEND Orthopaedic Surgery Hand Surgery | DX: E11.621 Type 2 diabetes mellitus with foot ulcer (principal); E11.42 Type 2 diabetes mellitus with diabetic polyneuropathy; E66.01 Morbid (severe) obesity due to excess calories; M14.672 Charcot's joint, left ankle and foot; B95.8 Unspecified staphylococcus as the cause of diseases classified elsewhere | CPT/HCPCS: 99212 ==

== ENCOUNTER → 2019-11-06 | Outpatient (CLI) | payer MEDICARE, MEDICAID ==
[~2019-11-06] MED LIST changes: +ACHYD1T PO; -BUPR150T20 PO; +BUPR150T28 PO; -HYDR-3820 PO; -LIDO15SO2 PO; +LIDO20SO23 PO
== END ==
LOC: WOUNDCARE 12:45
PROVIDERS: ATTEND Surgery
DX: E11.621 Type 2 diabetes mellitus with foot ulcer (principal); E11.42 Type 2 diabetes mellitus with diabetic polyneuropathy; L97.422 Non-pressure chronic ulcer of left heel and midfoot with fat layer exposed; M14.672 Charcot's joint, left ankle and foot; E66.01 Morbid (severe) obesity due to excess calories; E11.52 Type 2 diabetes mellitus with diabetic peripheral angiopathy with gangrene
CPT/HCPCS: 11042

== ENCOUNTER → 2019-11-13 | Outpatient (CLI) | payer MEDICARE, MEDICAID | LOC: WOUNDCARE 14:10 | PROVIDERS: ATTEND Surgery | DX: E11.621 Type 2 diabetes mellitus with foot ulcer (principal); E11.42 Type 2 diabetes mellitus with diabetic polyneuropathy; L97.422 Non-pressure chronic ulcer of left heel and midfoot with fat layer exposed; M14.672 Charcot's joint, left ankle and foot; E66.01 Morbid (severe) obesity due to excess calories | CPT/HCPCS: 11042 ==

== ENCOUNTER → 2019-11-20 | Outpatient (CLI) | payer MEDICARE, MEDICAID | LOC: WOUNDCARE 14:19 | PROVIDERS: ATTEND Surgery | DX: E11.621 Type 2 diabetes mellitus with foot ulcer (principal); E11.42 Type 2 diabetes mellitus with diabetic polyneuropathy; E11.52 Type 2 diabetes mellitus with diabetic peripheral angiopathy with gangrene; E11.610 Type 2 diabetes mellitus with diabetic neuropathic arthropathy; I96 Gangrene, not elsewhere classified; L97.422 Non-pressure chronic ulcer of left heel and midfoot with fat layer exposed; E66.01 Morbid (severe) obesity due to excess calories | CPT/HCPCS: 11042 ==

== ENCOUNTER → 2019-12-04 | Outpatient (CLI) | payer MEDICARE, MEDICAID | LOC: WOUNDCARE 14:21 | PROVIDERS: ATTEND Surgery | DX: E11.621 Type 2 diabetes mellitus with foot ulcer (principal); E11.42 Type 2 diabetes mellitus with diabetic polyneuropathy; E11.610 Type 2 diabetes mellitus with diabetic neuropathic arthropathy; L97.422 Non-pressure chronic ulcer of left heel and midfoot with fat layer exposed; E66.01 Morbid (severe) obesity due to excess calories | CPT/HCPCS: 11042 ==

== ENCOUNTER → 2019-12-18 | Outpatient (CLI) | payer MEDICARE, MEDICAID | LOC: WOUNDCARE 14:35 | PROVIDERS: ATTEND Surgery | DX: E11.621 Type 2 diabetes mellitus with foot ulcer (principal); E11.42 Type 2 diabetes mellitus with diabetic polyneuropathy; E11.610 Type 2 diabetes mellitus with diabetic neuropathic arthropathy; L97.422 Non-pressure chronic ulcer of left heel and midfoot with fat layer exposed; E66.01 Morbid (severe) obesity due to excess calories | CPT/HCPCS: 11042 ==

== ENCOUNTER → 2020-01-01 | Outpatient (CLI) | payer MEDICARE, MEDICAID | LOC: WOUNDCARE 14:40 | PROVIDERS: ATTEND Surgery | DX: E11.621 Type 2 diabetes mellitus with foot ulcer (principal); E11.42 Type 2 diabetes mellitus with diabetic polyneuropathy; E11.610 Type 2 diabetes mellitus with diabetic neuropathic arthropathy; L97.422 Non-pressure chronic ulcer of left heel and midfoot with fat layer exposed; E66.01 Morbid (severe) obesity due to excess calories | CPT/HCPCS: 11042 ==

== ENCOUNTER → 2020-01-08 | Outpatient (CLI) | payer MEDICARE, MEDICAID ==
[2020-01-08 16:04] LABS: BASOPHILS % (AUTO) 0 % (0-10); EOSINOPHILS # (AUTO) 0.1 10^3/uL (0.0-0.3); EOSINOPHILS % (AUTO) 2 % (0-10); HEMATOCRIT 35 % (35-52); HEMOGLOBIN 11.3 G/DL (11.5-16.0); LYMPHOCYTES # (AUTO) 0.9 X 10^3 (1.0-4.0); LYMPHOCYTES % (AUTO) 14 % (12-44); MEAN CORPUSCULAR HEMOGLOBIN 30 PG (25-34); MEAN CORPUSCULAR HGB CONC 32 G/DL (32-36); MEAN CORPUSCULAR VOLUME 94 FL (80-99); MEAN PLATELET VOLUME 10.3 FL (7.4-10.4); MONOCYTES # (AUTO) 0.4 X 10^3 (0.0-1.0); MONOCYTES % (AUTO) 6 % (0-12); NEUTROPHILS % (AUTO) 78 % (42-75); PLATELET COUNT 249 10^3/uL (130-400); WHITE BLOOD COUNT 6.4 10^3/uL (4.3-11.0)
[2020-01-08 16:23] LABS: ALBUMIN 3.9 GM/DL (3.2-4.5); BILIRUBIN,TOTAL 0.2 MG/DL (0.1-1.0); CALCIUM 8.6 MG/DL (8.5-10.1); CREATININE SERUM 0.97 MG/DL (0.60-1.30); POTASSIUM 4.7 MMOL/L (3.6-5.0)
== END ==
LOC: LAB 15:48
PROVIDERS: ATTEND Surgery
DX: E11.621 Type 2 diabetes mellitus with foot ulcer (principal); L97.509 Non-pressure chronic ulcer of other part of unspecified foot with unspecified severity
CPT/HCPCS: 36415; 80053; 83036; 85025

== ENCOUNTER → 2020-01-08 | Outpatient (CLI) | payer MEDICARE, MEDICAID | LOC: WOUNDCARE 14:26 | PROVIDERS: ATTEND Surgery | DX: E11.621 Type 2 diabetes mellitus with foot ulcer (principal); L97.222 Non-pressure chronic ulcer of left calf with fat layer exposed; E11.42 Type 2 diabetes mellitus with diabetic polyneuropathy; E11.610 Type 2 diabetes mellitus with diabetic neuropathic arthropathy; L97.422 Non-pressure chronic ulcer of left heel and midfoot with fat layer exposed; E66.01 Morbid (severe) obesity due to excess calories | CPT/HCPCS: 11042 ==

== ENCOUNTER → 2020-01-10 | Outpatient (CLI) | payer MEDICARE, MEDICAID | LOC: WOUNDCARE 10:27 | PROVIDERS: ATTEND Surgery | DX: E11.621 Type 2 diabetes mellitus with foot ulcer (principal); E11.42 Type 2 diabetes mellitus with diabetic polyneuropathy; E11.610 Type 2 diabetes mellitus with diabetic neuropathic arthropathy; L97.422 Non-pressure chronic ulcer of left heel and midfoot with fat layer exposed; E66.01 Morbid (severe) obesity due to excess calories | CPT/HCPCS: 29445 ==

== ENCOUNTER → 2020-01-17 | Outpatient (CLI) | payer MEDICARE, MEDICAID | LOC: WOUNDCARE 10:29 | PROVIDERS: ATTEND Surgery | DX: E11.621 Type 2 diabetes mellitus with foot ulcer (principal); E11.42 Type 2 diabetes mellitus with diabetic polyneuropathy; E11.610 Type 2 diabetes mellitus with diabetic neuropathic arthropathy; L97.422 Non-pressure chronic ulcer of left heel and midfoot with fat layer exposed; E11.22 Type 2 diabetes mellitus with diabetic chronic kidney disease; E66.01 Morbid (severe) obesity due to excess calories; Z86.718 Personal history of other venous thrombosis and embolism; I10 Essential (primary) hypertension; I25.2 Old myocardial infarction; E11.51 Type 2 diabetes mellitus with diabetic peripheral angiopathy without gangrene; N18.6 End stage renal disease; Z98.84 Bariatric surgery status; Z86.73 Personal history of transient ischemic attack (TIA), and cerebral infarction without residual deficits | CPT/HCPCS: 11042 ==

== ENCOUNTER → 2020-01-24 | Outpatient (CLI) | payer MEDICARE, MEDICAID | LOC: WOUNDCARE 09:42 | PROVIDERS: ATTEND Surgery | DX: E11.621 Type 2 diabetes mellitus with foot ulcer (principal); E11.42 Type 2 diabetes mellitus with diabetic polyneuropathy; E11.610 Type 2 diabetes mellitus with diabetic neuropathic arthropathy; L97.422 Non-pressure chronic ulcer of left heel and midfoot with fat layer exposed; E66.01 Morbid (severe) obesity due to excess calories; I12.0 Hypertensive chronic kidney disease with stage 5 chronic kidney disease or end stage renal disease; I25.2 Old myocardial infarction; E11.51 Type 2 diabetes mellitus with diabetic peripheral angiopathy without gangrene; N18.6 End stage renal disease; Z98.84 Bariatric surgery status; Z86.73 Personal history of transient ischemic attack (TIA), and cerebral infarction without residual deficits; Z68.35 Body mass index [BMI] 35.0-35.9, adult; Z86.718 Personal history of other venous thrombosis and embolism | CPT/HCPCS: 11042 ==

== ENCOUNTER → 2020-01-30 | Outpatient (CLI) | payer MEDICARE, MEDICAID | LOC: WOUNDCARE 09:33 | PROVIDERS: ATTEND Surgery | DX: L97.422 Non-pressure chronic ulcer of left heel and midfoot with fat layer exposed (principal); E11.621 Type 2 diabetes mellitus with foot ulcer; E11.42 Type 2 diabetes mellitus with diabetic polyneuropathy; E11.52 Type 2 diabetes mellitus with diabetic peripheral angiopathy with gangrene; E66.01 Morbid (severe) obesity due to excess calories; M14.672 Charcot's joint, left ankle and foot | CPT/HCPCS: 11042 ==

== ENCOUNTER 2020-02-06 05:54 | Outpatient (RCR) | payer MEDICARE, MEDICAID ==
[~2020-02-06] VITALS: Ht 167.7 cm; Wt 97.7 kg
[~2020-02-06 05:54] MED LIST changes: -SERT50TA9 PO
[2020-02-06] MEDS ORDERED: SERT50TA9 PO (12:09)
== END 2020-02-06 12:10 | disposition home or self-care (01) ==
LOC: PREOP 05:54 → EDSTATUS 11:15 → PREOP 12:10
PROVIDERS: ATTEND Internal Medicine
DX: Z01.818 Encounter for other preprocedural examination (principal); Z11.59 Encounter for screening for other viral diseases
CPT/HCPCS: 87635

== ENCOUNTER → 2020-02-06 | Outpatient (CLI) | payer MEDICARE, MEDICAID ==
[~2020-02-06] MED LIST changes: +SERT50TA9 PO
== END ==
LOC: WOUNDCARE 10:21
PROVIDERS: ATTEND Surgery
DX: L97.422 Non-pressure chronic ulcer of left heel and midfoot with fat layer exposed (principal); E11.621 Type 2 diabetes mellitus with foot ulcer; E11.42 Type 2 diabetes mellitus with diabetic polyneuropathy; E11.52 Type 2 diabetes mellitus with diabetic peripheral angiopathy with gangrene; M14.672 Charcot's joint, left ankle and foot; E66.01 Morbid (severe) obesity due to excess calories
CPT/HCPCS: 11042

== ENCOUNTER → 2020-02-13 | Outpatient (CLI) | payer MEDICARE, MEDICAID ==
[~2020-02-13] MED LIST changes: +SERT50TA9 PO
== END ==
LOC: WOUNDCARE 10:13
PROVIDERS: ATTEND Surgery
DX: E11.621 Type 2 diabetes mellitus with foot ulcer (principal); L97.422 Non-pressure chronic ulcer of left heel and midfoot with fat layer exposed; E11.42 Type 2 diabetes mellitus with diabetic polyneuropathy; E11.610 Type 2 diabetes mellitus with diabetic neuropathic arthropathy; E66.01 Morbid (severe) obesity due to excess calories; Z87.891 Personal history of nicotine dependence; I12.0 Hypertensive chronic kidney disease with stage 5 chronic kidney disease or end stage renal disease; N18.6 End stage renal disease; E11.51 Type 2 diabetes mellitus with diabetic peripheral angiopathy without gangrene; I25.2 Old myocardial infarction; Z86.718 Personal history of other venous thrombosis and embolism; Z86.73 Personal history of transient ischemic attack (TIA), and cerebral infarction without residual deficits; Z68.35 Body mass index [BMI] 35.0-35.9, adult
CPT/HCPCS: 11042; A6253

== ENCOUNTER → 2020-02-20 | Outpatient (CLI) | payer MEDICARE, MEDICAID | LOC: WOUNDCARE 10:09 | PROVIDERS: ATTEND Surgery | DX: L97.422 Non-pressure chronic ulcer of left heel and midfoot with fat layer exposed (principal); E11.621 Type 2 diabetes mellitus with foot ulcer; E11.42 Type 2 diabetes mellitus with diabetic polyneuropathy; M14.672 Charcot's joint, left ankle and foot; E66.01 Morbid (severe) obesity due to excess calories | CPT/HCPCS: 11042 ==

== ENCOUNTER → 2020-02-27 | Outpatient (CLI) | payer MEDICARE, MEDICAID | LOC: WOUNDCARE 10:19 | PROVIDERS: ATTEND Surgery | DX: E11.621 Type 2 diabetes mellitus with foot ulcer (principal); E11.42 Type 2 diabetes mellitus with diabetic polyneuropathy; E11.610 Type 2 diabetes mellitus with diabetic neuropathic arthropathy; L97.422 Non-pressure chronic ulcer of left heel and midfoot with fat layer exposed; E66.01 Morbid (severe) obesity due to excess calories; Z68.35 Body mass index [BMI] 35.0-35.9, adult | CPT/HCPCS: 29445 ==

== ENCOUNTER → 2020-03-04 | Outpatient (CLI) | payer MEDICARE, MEDICAID | LOC: WOUNDCARE 10:07 | PROVIDERS: ATTEND Surgery | DX: E11.621 Type 2 diabetes mellitus with foot ulcer (principal); E11.42 Type 2 diabetes mellitus with diabetic polyneuropathy; L97.422 Non-pressure chronic ulcer of left heel and midfoot with fat layer exposed; M14.672 Charcot's joint, left ankle and foot; E66.01 Morbid (severe) obesity due to excess calories | CPT/HCPCS: 99212 ==

== ENCOUNTER 2020-03-05 05:32 | Outpatient (RCR) | payer MEDICARE, MEDICAID ==
[~2020-03-05] VITALS: Ht 167 cm; Wt 97.7 kg
[2020-03-08] MEDS ORDERED: PANT40TA3 PO (09:47)
== END 2020-03-05 10:20 | disposition home or self-care (01) ==
LOC: PREOP 05:32
PROVIDERS: ATTEND Internal Medicine
DX: Z01.812 Encounter for preprocedural laboratory examination (principal); R13.10 Dysphagia, unspecified; Z20.828 Contact with and (suspected) exposure to other viral communicable diseases
CPT/HCPCS: 87635

== ENCOUNTER 2020-03-08 07:33 | Day surgery (SDC) | payer MEDICARE, MEDICAID ==
--- NOTE | 2020-02-06 19:05 | HISTORY AND PHYSICAL ---
DATE OF SERVICE: EGD HISTORY AND PHYSICAL HISTORY OF PRESENT ILLNESS: The patient is a 64-year-old white female with a history of squamous cell carcinoma of the head and neck reportedly stage IV, diagnosed in 06/2019. After initial biopsy of right-sided neck mass, she underwent definitive radiation and chemotherapy. She reports over the past several months she has noticed increased dysphagia, not only liquids, but also solids. She is being referred for EGD evaluation for this reason. She reports some odynophagia and continues to have oral dryness post-radiation therapy. She denies seeing any overt source, but due to a Mallampati 4 oropharyngeal configuration she is unable to see the posterior pharynx well. She has had an associated 60-pound weight loss with this. She denies melena or bright red blood per rectum. She denies any associated abdominal pain and has noted no adenopathy in the neck or elsewhere. PAST MEDICAL HISTORY: Significant for depression, thyroid replacement for hypothyroidism and hypertension. PAST SURGICAL HISTORY: She had an appendectomy in the 60s, hysterectomy in . She had gastric bypass for weight loss in 2015 and she reports that she had lost about 100 pounds again 40 or 50 of it back up until her cancer diagnosis and has lost 60 pounds at the beginning of the year. She has had back kyphoplasty for traumatic compression fracture and reports vascular surgery with no known history of coronary artery disease. Following her gastric bypass surgery was complicated by wound infection requiring wound VAC. Her vascular surgery was for peripheral vascular disease. SOCIAL HISTORY: She is retired. No significant past drinking history. She does have a 48-tugb-oags smoking history, quit in 2009. FAMILY HISTORY: She is not aware of any family history for GI tract malignancy or head and neck cancer. Father did have some skin cancer, unknown type. He has a brother with type 2 diabetes mellitus. Father also had hypertension. REVIEW OF SYSTEMS: CONSTITUTIONAL: Pertinent for weight loss. She denies night sweats, chills, fever or lymphadenopathy. CARDIOVASCULAR: She reports stable dyspnea on exertion with no orthopnea, PND or pedal edema. CARDIOVASCULAR: Denies chest pain. PULMONARY: She denies cough or wheezing. Denies history of sleep apnea. GASTROINTESTINAL: As noted in the HPI. PHYSICAL EXAMINATION: GENERAL: Reveals a pleasant albeit anxious white female, in no acute distress. VITAL SIGNS: Weight is 215 pounds with a BMI of 34. Blood pressure 122/64, heart rate 70 and regular. HEENT: Unremarkable with Mallampati 4 oropharyngeal configuration. NECK: Revealed no JVD, adenopathy or bruits. Oral cavity revealed no evidence for source or exudate. CHEST: Clear to auscultation. CARDIOVASCULAR: Revealed a regular rate and rhythm without murmur, S3 or S4. ABDOMEN: Soft, supple without mass, organomegaly or tenderness. Well-healed anterior abdominal surgical scars are noted. No evidence for abdominal aortic aneurysm is noted. No bruits noted. EXTREMITIES: Reveal no cyanosis, clubbing or edema. ASSESSMENT AND PLAN: For further investigation of dysphagia in an individual with squamous cell carcinoma of the head and neck, primary felt to be the base of the tongue on the right side. The patient is scheduled for EGD evaluation due to frailty, anxiety and Mallampati 4 oropharyngeal configuration. We will consult anesthesia for Diprivan administration. The patient also stated that she had been taking Benadryl for some allergy symptoms, this may be aggravating dryness and subsequent dysphagia. She was advised to discontinue this and try Nasacort AQ 2 sprays both sides at bedtime. Thank you for the referral. Job ID: [id number] DocumentID: [id number] Dictated Date: 02/06/2020 16:46:03 Wrist Liner Date: 02/06/2020 17:26:56 Dictated By: AAKASH MONTIEL MD
[~2020-03-08] VITALS: Ht 167 cm; Wt 97.7 kg
[~2020-03-08 07:33] MED LIST changes: +ASPI-1238 PO; -ASPI-983 PO
[2020-03-08] MEDS ORDERED: LACTATED RINGERS 1,000 ML IV STA (07:37)
[2020-03-08] MEDS ORDERED: HURRICAINE EXT TUBE (BENZOCAINE) XX PRN (07:45)
[2020-03-08] MEDS ORDERED: LIDOCAINE JELLY 2% 6 ML SYRINGE MM PRN (07:45)
[2020-03-08] MEDS ORDERED: LACTATED RINGERS 1,000 ML IV ONE (07:45)
[2020-03-08 07:59] VITALS: BP 137/84
--- NOTE | 2020-03-08 08:04 | Pre-Op Note & Conscious Sedat ---
Pre-Operative Progress Note H&P Reviewed The H&P was reviewed, patient examined and no changes noted. Date H&P Reviewed: Mar 08, 2020 Time H&P Reviewed: 08:04 Conscious Sedation Pre-Proced ASA Score 3 For ASA 3 and 4: Consider anesthesia and medical clearance. Also, for patients with a history of failed moderate sedation consider anesthesia. Airway Lungs Heart ASA score ASA 1: a normal healthy patient ASA 2: a patient with a mild systemic disease (mid diabetes, controlled hypertension, obesity ASA 3: a patient with a severe systemic disease that limits activity (angina, COPD, prior Myocardial infarction) ASA 4: a patient with an incapacitating disease that is a constant threat to life (CHF, renal failure) ASA 5: a moribund patient not expected to survive 24 hrs. (ruptured aneurysm) ASA 6: a declared brain- patient whose organs are being harvested. For emergent operations, add the letter E after the classification Mallampati Classification Grade 4 Sedation Plan Analgesia, Amnesia, Plan communicated to team members, Discussed options with patient/fam, Discussed risks with patient/fam The patient is an appropriate candidate to undergo the planned procedure, sedation, and anesthesia. The patient immediately re-assessed prior to indication. AAKASH MONTIEL MD Mar 08, 2020 08:04
[2020-03-08] MEDS ORDERED: LIDOCAINE JELLY 2% 6 ML SYRINGE ONE (08:23)
[2020-03-08] MEDS ORDERED: HURRICAINE EXT TUBE (BENZOCAINE) ONE (08:24)
[2020-03-08 08:35] VITALS: BP 138/64
[2020-03-08] MEDS ORDERED: MIDAZOLAM 2 MG/2 ML (VERSED) VIAL ONE (08:39)
[2020-03-08] MEDS ORDERED: proPOfol 200 MG/20 ML (DIPRIVAN) VIAL IV ONE ×2 (08:39→08:40)
[2020-03-08 08:55] VITALS: BP 106/63
[2020-03-08 09:00] VITALS: BP_SYST 108; BP_SYST 140; BP_DIAS 63; BP_DIAS 64
[2020-03-08 09:33] VITALS: BP 124/62
[2020-03-08 09:35] VITALS: BP 124/62
[2020-03-08] MEDS ORDERED: PANT40TA52 PO ×2 (09:47)
--- NOTE | 2020-03-08 10:55 | Anesthesia-General Post-Op ---
MAC Patient Condition Mental Status/LOC: Same as Preop Cardiovascular: Satisfactory Nausea/Vomiting: Absent Respiratory: Satisfactory Pain: Controlled Complications: Absent Post Op Complications Complications None Follow Up Care/Instructions Patient Instructions None needed. Anesthesiology Discharge Order Discharge Order Patient was seen after the procedure and she was doing well, no complaints, stable vital signs, no apparent adverse anesthesia problems. EUNICE HENNING DO Mar 08, 2020 10:55
--- OUTSIDE RECORDS SUMMARY | 2020-03-08 11:52 | XMS REPORT | Summary of Care ---
Author Author [facility] er Organization [facility] er Address Unknown Phone Unavailable Care Team Providers Care Window Shade Installer Name Role Phone CAM MARTINEZ, DR. Gema CHERY PCP Encounter [facility] FABIOLA Rosenberg [id number] Date(s): 11/08/14 - 11/08/[address] [id number] Discharge Disposition: Home - 01 Attending Physician: MIRI LEVY MD Admitting Physician: MIRI LEVY MD Referring Physician: CLEVE CHANG MD Vital Signs No data available for this section Problem List Condition Effective Dates Status Health Status Informan t GERD - Active Gastro-esophageal reflux disease(Probable Diagnosis) Allergies, Adverse Reactions, Alerts No Known Allergies Medications No data available for this section Results HEMATOLOGY Most recent to 1 oldest [Reference Range]: WBC [4.0-11.0 21.6 x10'3/microL x10'3/microL] *HI* (11/08/14 1:00 PM) RBC [3.90-5.60 3.19 x10'6/microL x10'6/microL] *LOW* (11/08/14 1:00 PM) Hgb [12.0-16.0 g/dL] 9.4 g/dL *LOW* (11/08/14 1:00 PM) Hct [35-47 %] 28 % *LOW* (11/08/14 1:00 PM) Platelet [140-400 413 x10'3/microL x10'3/microL] *HI* (11/08/14 1:00 PM) MCV [81-99 fL] 88 fL (11/08/14 1:00 PM) MCH [27-34 pg] 30 pg (11/08/14 1:00 PM) MCHC [32-36 g/dL] 33 g/dL (11/08/14 1:00 PM) RDW [<=14.5 %] 13.9 % (11/08/14 1:00 PM) MPV [6.5-10.4 fL] 8.6 fL (11/08/14 1:00 PM) Neutrophils % [44-76 88 % %] *HI* (11/08/14 1:00 PM) Lymphocytes % [13-43 5 % %] *LOW* (11/08/14 1:00 PM) Monocytes % [0-13 %] 6 % (11/08/14 1:00 PM) Eosinophils % [0-7 0 % %] (11/08/14 1:00 PM) Basophils % [0-3 %] 0 % (11/08/14 1:00 PM) Neutrophils Abs 19.1 x10'3/microL [1.4-7.2 *HI* x10'3/microL] (11/08/14 1:00 PM) Lymphocytes Abs 1.1 x10'3/microL [1.2-3.4 *LOW* x10'3/microL] (11/08/14 1:00 PM) Monocytes Abs 1.4 x10'3/microL [0.1-0.6 *HI* x10'3/microL] (11/08/14 1:00 PM) Eosinophils Abs 0.0 x10'3/microL [0.0-0.5 (11/08/14 1:00 PM) x10'3/microL] Basophils Abs 0.0 x10'3/microL [0.0-0.2 (11/08/14 1:00 PM) x10'3/microL] Slide Review? Performed (11/08/14 1:00 PM) Immunizations No data available for this section Procedures No data available for this section Social History No data available for this section Functional Status No data available for this section Assessment and Plan No data available for this section Hospital Discharge Instructions No data available for this section
--- OUTSIDE RECORDS SUMMARY | 2020-03-08 11:52 | XMS REPORT | Summary of Care ---
Author Organization Unknown Address Unknown Phone Unavailable Encounter [facility] [id number] Date(s): 09/07/14 - 09/07/[address] [place] [address] [place] [phone]- Discharge Disposition: Home - 01 Attending Physician: JANETT BLEDSOE MD Admitting Physician: JANETT BLEDSOE MD Referring Physician: JANETT BLEDSOE MD Vital Signs No data available for this section Problem List No data available for this section Allergies, Adverse Reactions, Alerts No data available for this section Medications No data available for this section Results IMMUNO/SEROLOGY Most recent to 1 oldest [Reference Range]: H pylori clotest Negative 1 [Negative] (09/07/14 9:23 AM) 1Interpretive Data: Recent ingestion of antibiotics, bismuth, proton pump inhibitors, or sucralfate can inhibit H. pylori causing false negative results. Immunizations No data available for this section Procedures No data available for this section Social History No data available for this section Functional Status No data available for this section Assessment and Plan No data available for this section Hospital Discharge Instructions No data available for this section
--- OUTSIDE RECORDS SUMMARY | 2020-03-08 11:53 | XMS REPORT | Continuity of Care Document ---
Author Author [email or web address] [email or web address] Address Unknown Phone Unavailable Care Team Providers Care Dot Net Architect Name Role Phone [employer] Unavailable Unavailable Problems Problem Status Onset Date Classification Date Reported Comments Source OTHER AND UNSPECIFIED MANIFESTATIONS OF Active 02/14/2015 [employer] OTHER POSTOPERATIVE INFECTION Active 11/08/2014 [employer] OTHER SPECIFIED SURGICAL OPERATIONS AND Active 11/08/2014 [employer] ESOPHAGEAL REFLUX Active 11/01/2014 [employer] MORBID OBESITY Active 11/01/2014 [employer] BODY MASS INDEX 50.0-59.9, ADULT Active 11/01/2014 [employer] ANXIETY STATE, UNSPECIFIED Act cristo 11/01/2014 [employer] PERSONAL HISTORY OF TRANSIENT ISCHEMIC A Active 11/01/2014 [employer] ACQUIRED ABSENCE OF BOTH CERVIX AND UTER Active 11/01/2014 [employer] OTHER LEFT BUNDLE BRANCH BLOCK Active 11/01/2014 [employer] PERSONAL HISTORY OF TOBACCO USE Active 11/01/2014 [employer] CARDIOMEGALY Active 11/01/2014 [employer] OTHER AND UNSPECIFIED HYPERLIPIDEMIA Active 11/01/2014 [employer] OSTEOARTHROSIS, UNSPECIFIED WHETHER GENE Active 11/01/2014 [employer] OBSTRUCTIVE SLEEP APNEA (ADULT) (PEDIATR Active 11/01/2014 [employer] DEPRESSIVE DISORDER, NOT ELSEWHERE CLASS Active 11/01/2014 [employer] UNSPECIFIED HYPOTHYROIDISM Act cristo 11/01/2014 [employer] DIABETES MELLITUS WITH NEUROLOGICAL MIRANDA Active 11/01/2014 [employer] POLYNEUROPATHY IN DIABETES Act cristo 11/01/2014 [employer] HYPERTENSIVE CHRONIC KIDNEY DISEASE, UNS Active 11/01/2014 [employer] CHRONIC KIDNEY DISEASE, UNSPECIFIED Active 11/01/2014 [facility] UNSPECIFIED GLAUCOMA Active 11/01/2014 [facility] Gastroesophageal reflux disease (disorder) Active Problem 11/09/2014 [facility] Medications No Data Provided for This Section Allergies, Adverse Reactions, Alerts No Known Medication Allergies Immunizations No Data Provided for This Section Results Order Name Results Value Reference Range Date Interpretation Comments Source Vit B1 WB Vitamin B1 (WB) Lvl 101 nm ol/L 70-180 02/18/2015 NA INTERPRETIVE INFORMATION: Vitamin B1, Wh ole Blood
This assay measures the concentration of thiamine diphosphate (TDP), the
primary active form of vitamin B1. Approximately 90 percent of vitamin B1
present in whole blood is TDP. Thiamine and thiamine monophosphate, which
comprise the remaining 10 percent, are not measured.
Test developed and characte ristics determined by [employer]. See
Compliance Statement B: [employer]/
Performed by [employer],
[address] [place] [address]
[email or web address], Manny Pan MD - Lab. Director
[facility] Auto Diff Neutrophils 88 % 44 - 76 11/08/[address] [facility] Auto Diff Lymphocytes % 5 % 13 - 43 11/08/[address] [facility] Auto Diff Monocytes % 6 % 0 - 13 11/08/[address] [facility] Auto Diff Eosinophils % 0 % 0 - 7 11/08/[address] [facility] Auto Diff Basophils % 0 % 0 - 3 11/08/[address] [facility] Auto Diff Neutro Absolute 19.1 x 10'3/microL 1.4 - 7.2 11/08/2014 H [facility] Auto Diff Lymph Absolute 1.1 x1 0'3/microL 1.2 - 3.4 11/08/[address] [facility] Auto Diff Morris Absolute 1.4 x1 0'3/microL 0.1 - 0.6 11/08/[address] [facility] Auto Diff Eos Absolute 0.0 x1 0'3/microL 0.0 - 0.5 11/08/[address] [facility] Auto Diff Basophil Absolute 0.0 x1 0'3/microL 0.0 - 0.2 11/08/2014 N [facility] CBC/Diff WBC 21.6 x10'3/micr oL 4.0 - 11.0 11/08/[address] [facility] CBC/Diff RBC 3.19 x10'6/micr oL 3.90 - 5.60 11/08/[address] [facility] CBC/Diff Hgb 9.4 g/dL 12.0 - 16.0 11/08/[address] [facility] CBC/Diff Hct 28 % 35 - 47 11/08/[address] [facility] CBC/Diff MCV 88 fL 81 - 99 11/08/[address] [facility] CBC/Diff MCH 30 pg 27 - 34 11/08/[address] [facility] CBC/Diff MCHC 33 g/dL 32 - 36 11/08/[address] [facility] CBC/Diff RDW 13.9 % - <=14.5 11/08/[address] [facility] CBC/Diff Platelet 413 x10 '3/microL 140 - 400 11/08/[address] [facility] CBC/Diff MPV 8.6 fL 6.5 - 10.4 11/08/[address] [facility] Vit B1 WB Vitamin B1 (WB) Lvl 178 nm ol/L 70-180 11/02/2014 NA INTERPRETIVE INFORMATION: Vitamin B1, Wh ole Blood
This assay measures the concentration of thiamine diphosphate (TDP), the
primary active form of vitamin B1. Approximately 90 percent of vitamin B1
present in whole blood is TDP. Thiamine and thiamine monophosphate, which
comprise the remaining 10 percent, are not measured.
Test developed and characte ristics determined by [employer]. See
Compliance Statement B: [email or web address]
Performed by [employer],
[address] [place] [address]
[email or web address], Manny Pan MD - Lab. Director
[facility] Glucose WB POC SMM Glucose Level (PO C) 138 mg/dL 70 - 100 11/01/2014 H Meter: [id number]~[employer]: [id number] MARIANELA PETERSEN
This test was performed at:
[facility]
[address]
[place] [address]
[facility] Renal Funct Index (GFR)Glomerular Fi ltration Rate 52.3 mL/min/1.73 m2 11/01/2014 NA GFR calculated based on MDR D abbreviated formula.

Age(years) Average GFR
20-29 116 ml/min/1.73 m2
30-39 107 ml/min/1.73 m2
40-49 99 ml/min/1.73 m2
50-59 93 ml/min/1.73 m2
60-69 85 ml/min/1.73 m2
70+ 75 ml/min/1.73 m2

Acceptable GFR =>60 ml/min/1.73 m2
Chronic Kidney Disease <60 ml/min/1.73 m2
Kidney Failure <15 ml/min/1.[address]
[facility] BMP Sodium 136 mmol/L 136 - 145 11/01/[address] [facility] BMP Potassium 4.7 mmol/L 3.5 - 5.1 11/01/[address] [facility] BMP Chloride 100 mmol/L 98 - 107 11/01/[address] [facility] BMP CO2 26 mmol/L 22 - 29 11/01/[address] [facility] BMP AGAP 10 mmol/L 3 - 19 11/01/[address] [facility] BMP Glucose 177 mg/dL 70 - 100 11/01/[address] [facility] BMP BUN 16 mg/dL 8 - 20 11/01/[address] [facility] BMP Creatinine 1.1 mg/dL 0.7 - 1.2 11/01/[address] [facility] BMP Calcium 8.3 mg/dL 8.6 - 10.2 11/01/[address] [facility] Glucose WB POC SMM Glucose Level (PO C) 194 mg/dL 70 - 100 11/01/2014 H Meter: [id number]~[employer]: [id number] BELKIS GR
This test was performed at:
[facility]
[address] [place] [address]
[place] [address]
[facility] Glucose WB POC SMM Glucose Level (PO C) 163 mg/dL 70 - 100 10/31/2014 H Meter: [id number]~[employer]: [id number] KRISHNA MCKINNEYKendell
This test was performed at:
[facility]
[address] [place] [address]
[place] [address]
[facility] Glucose WB POC SMM Glucose Level (PO C) 144 mg/dL 70 - 100 10/31/2014 H Meter: [id number]~[employer]: [id number] CALLI JENSEN
This test was performed at:
[facility]
[address] [place] [address]
[place] [address]
[facility] Glucose WB POC SMM Glucose Level (PO C) 170 mg/dL 70 - 100 10/31/2014 H Meter: [id number]~[employer]: [id number] MARIANELA PETERSEN
This test was performed at:
[facility] [address] [place], [place] [address]br/>[place] [address]
[facility] ISTAT SMM pH (POC) 7.358 7.350 - 7.450 10/31/[address] [facility] ISTAT SMM pCO2 (POC) 49.8 mmHg 35.0 - 45.0 10/31/[address] [facility] ISTAT SMM pO2 (POC) 45 mmHg 83 - 108 10/31/[address] [facility] ISTAT SMM TCO2 (POC) 29 mmol/L 19 - 24 10/31/[address] [facility] ISTAT SMM HCO3 (POC) 28.0 m mol/L 18.0 - 23.0 10/31/[address] [facility] ISTAT SMM BE (POC) 3 mmol/L -2 - 3 10/31/[address] [facility] ISTAT SMM SO2 IStat 79 % 95 - 98 10/31/[address] [facility] ISTAT SMM Rick Test Pos 10/31/[address] [facility] ISTAT SMM Sample Type ART 10/31/[address] [facility] ISTAT SMM Site of Collection R Radi al 10/31/[address] [facility] ISTAT SMM Device Room Air 10/31/2014 NA Meter: [id number]~[employer]: [id number] VIRIDIANAeKndell CARMELITARamon MUIR
[facility] ISTAT SMM Drawn by RC 10/31/[address] [facility] Glucose WB POC SMM Glucose Level (PO C) 175 mg/dL 70 - 100 10/31/2014 H Meter: [id number]~[employer]: [id number] MARIANELA PETERSEN
This test was performed at:
[facility]
[address]
[place] [address]
[facility] Renal Funct Index (GFR)Glomerular Fi ltration Rate 53.5 mL/min/1.73 m2 10/31/2014 NA GFR calculated based on MDR D abbreviated formula.

Age(years) Average GFR
20-29 116 ml/min/1.73 m2
30-39 107 ml/min/1.73 m2
40-49 99 ml/min/1.73 m2
50-59 93 ml/min/1.73 m2
60-69 85 ml/min/1.73 m2
70+ 75 ml/min/1.73 m2

Acceptable GFR =>60 ml/min/1.73 m2
Chronic Kidney Disease <60 ml/min/1.73 m2
Kidney Failure <15 ml/min/1.73 m2
[facility] CMP Sodium 136 mmol/L 136 - 145 10/31/2014 N [facility] CMP Potassium 5.2 mmol/L 3.5 - 5.1 10/31/[address] [facility] CMP Chloride 96 mmol/L 98 - 107 10/31/[address] [facility] CMP CO2 30 mmol/L 22 - 29 10/31/[address] [facility] CMP AGAP 10 mmol/L 3 - 19 10/31/2014 N [facility] CMP Glucose 181 mg/dL 70 - 100 10/31/[address] [facility] CMP BUN 24 mg/dL 8 - 20 10/31/[address] [facility] CMP Creatinine 1.0 mg/dL 0.7 - 1.2 10/31/[address] [facility] CMP Calcium 8.5 mg/dL 8.6 - 10.2 10/31/[address] [facility] CMP Total Protein 7.3 g/dL 6.6 - 8.7 10/31/[address] [facility] CMP Albumin Level 3.6 g/dL 3.5 - 5.2 10/31/[address] [facility] CMP Bili Total 0.3 mg/dL 0.0 - 1.2 10/31/2014 N [facility] CMP Alk Phos 83 Inter. Units/L 40 - 130 10/31/[address] [facility] CMP AST 59 Units/L 0 - 40 10/31/2014 H Slightly hemolyzed.
[facility] [employer] [place] CMP ALT(SGPT) 46 Inter. Un its/L 0 - 33 10/31/2014 H [facility] Uric Acid Uric Acid 6.1 mg/dL 2.4 - 5.7 10/31/2014 H [facility] CBC WBC 12.2 x10'3/microL 4.0 - 11.0 10/31/2014 H [facility] [place] CBC RBC 3.43 x10'6/microL 3.90 - 5.60 10/31/2014 L [facility] [place] CBC Hgb 10.2 g/dL 12.0 - 16.0 10/31/2014 L [facility] [place] CBC Hct 31 % 35 - 47 10/31/2014 L [facility] [place] CBC MCV 90 fL 81 - 99 10/31/2014 N [facility] [place] CBC MCH 30 pg 27 - 34 10/31/2014 N [facility] [place] CBC MCHC 33 g/dL 32 - 36 10/31/2014 N [facility] CBC RDW 13.3 % - <=14.5 10/31/2014 N [facility] CBC Platelet 281 x10'3/microL 140 - 400 10/31/2014 N [facility] CBC MPV 10.1 fL 6.5 - 10.4 10/31/2014 N [facility] Glucose WB POC SMM Glucose Level (PO C) 185 mg/dL 70 - 100 10/31/2014 H Meter: [id number]~[employer]: [id number] KRISHNA CASTILLO
This test was performed at:
[facility]
[address] [place] [address]
[place] [address]
[facility] Glucose WB POC SMM Glucose Level (PO C) 175 mg/dL 70 - 100 10/30/2014 H Meter: [id number]~[employer]: [id number] KRISHNA CASTILLO
This test was performed at:
[facility]
[address] [place] [address]
[place] [address]
[facility] CBC WBC 17.2 x10'3/microL 4.0 - 11.0 10/30/2014 H [facility] CBC RBC 3.42 x10'6/microL 3.90 - 5.60 10/30/2014 L [facility] [place] CBC Hgb 10.0 g/dL 12.0 - 16.0 10/30/2014 L [facility] [place] CBC Hct 31 % 35 - 47 10/30/2014 L [facility] CBC MCV 90 fL 81 - 99 10/30/2014 N [facility] CBC MCH 29 pg 27 - 34 10/30/2014 N [facility] CBC MCHC 33 g/dL 32 - 36 10/30/2014 N [facility] [place] CBC RDW 13.4 % - <=14.5 10/30/2014 N [facility] [place] CBC Platelet 269 x10'3/microL 140 - 400 10/30/2014 N [facility] [place] CBC MPV 10.9 fL 6.5 - 10.4 10/30/[address] [facility] Glucose WB POC SMM Glucose Level (PO C) 218 mg/dL 70 - 100 10/30/2014 H Meter: [id number]~[employer]: [id number] BOB DUENAS
This test was performed at:
[facility]
[address] [place] [address]
[place] [address]
[facility] Glucose WB POC SMM Glucose Level (PO C) 185 mg/dL 70 - 100 10/30/2014 H Meter: [id number]~[employer]: [id number] ABIOLA TRAN
This test was performed at:
[facility]
[address]
[place] [address]
[facility] Glucose WB POC SMM Glucose Level (PO C) 165 mg/dL 70 - 100 10/30/2014 H Meter: [id number]~[employer]: [id number] BRADLEY CACERES
This test was performed at:
[facility]
[address] [place] [address]
[place] [address]
[facility] HP Urease H pylori Negative Negative 09/08/2014 N Recent ingestion of antibiotics, bismuth , proton pump inhibitors, or sucralfate can inhibit H. pylori causing false negative results.
[facility] Pathology Reports No Data Provided for This Section Diagnostic Reports Report Value Date Source CT Angio Chest W or W/WO Contrast [facility] [address] [address] Radiology Reports CPT Codes: 88082, Q9967 CD Codes: 7738760 (CT Angio Chest), 2180701 (C Contrast Optiray 350/ML) Reason for exam: post op Hypoxemia, R/O PE Report A CT SCAN OF THE CHEST WITH CONTRAST: CT PULMONARY ANGIOGRAM WITH MULTIPLANAR RECONSTRUCTIONS AND 3 DIMENSIONAL RECONSTRUCTIONS CREATED ON AN INDEPENDENT WORKSTATION FOR EVALUATING PULMONARY EMBOLI: CLINICAL HISTORY: Postoperative hypoxia. TECHNIQUE: Helical images were obtained of the chest after the uneventful administration of 100 mL Optiray-350 IV contrast, using a CT pulmonary angiogram protocol. Multiplanar reconstructions were utilized in the interpretation of the study. Three dimensional reconstructions were created on an independent workstation by the technologist under the direction of the radiologist. FINDINGS: Heart: The heart is normal in size and no pericardial effusion is present. There are coronary artery calcifications. Aorta: The thoracic aorta is unremarkable. Mediastinum: No supraclavicular, axillary, mediastinal or hilar adenopathy is identified. Lungs: There is subsegmental collapse and atelectasis in the posterior medial left lower lobe. No definite noncalcified soft tissue nodules or masses are detected. Pleural space: No pleural effusion is demonstrated. There is no pneumothorax. Skeleton and chest wall: No significant osseous abnormalities are identified. Upper abdomen: Views of the upper abdomen show evidence of a prior gastric bypass surgery. TOSHA LEVINE [id number] Radiology Reports CT PULMONARY ANGIOGRAM: There are no filling defects in the main pulmonary arteries or their proximal branches to suggest pulmonary emboli. 2. Subsegmental atelectasis and collapse in the posterior medial left lower lobe. IMPRESSION: 1. There are no filling defects in the main pulmonary arteries or their proximal branches to suggest pulmonary embolism. Dictating Param Subramanian Dictated 10/31/2014 14:45 Signing Param Subramanian [facility] [id number] Final Dictated by: PARAM ROWLAND MD Signed by: PARAM ROWLAND MD 10/31/14 14:49 [employer] Farmer: WILLY 10/31/14 14:49 10/31/2014 [facility] XR Chest 2V [facility] [address] [address] Radiology Reports CPT Codes: 66527 CDM Codes: 7237531 (XR Chest 2V) Reason for exam: De Sat. on Room Air Report Examination: Chest 2 view. DATE: 10/31/2014 HISTORY: Shortness of breath. FINDINGS: There are no prior studies available for comparison. Frontal and lateral views of the chest show no focal pneumonic consolidation, pleural effusion, or pneumothorax. Heart size and mediastinal contours are normal. Pulmonary vascularity is normal. Changes of vertebroplasty of an upper lumbar vertebra are noted. IMPRESSION: 1. No acute cardiopulmonary abnormality. Dictating Shavonne Arenas Dictated 10/31/2014 12:13 Signing Shavonne Arneas Location [id number] Final Dictated by: SHAVONNE KIRK MD Signed by: SHAVONNE KIRK MD 10/31/14 12:13 [employer] Farmer: KYLE 10/31/14 12:13 JULIANNA TOSHA R [id number] 10/31/2014 [facility] Consultation Notes Results Value Date Source Operative Report Operative Rep ort DATE OF 1955 DATE OF SURGERY 10/30/2014 PREOPERATIVE DIAGNOSIS Morbid obesity with comorbidities. POSTOPERATIVE DIAGNOSIS the cholecystitis. OPERATION PERFORMED Laparoscopic Ender-en-Y gastric bypass and esophagogastroduodenoscopy. SURGEON Janett Bledsoe MD METAL WEATHER STRIPPER Perfecto Nunez MD INDICATION The is a 59-year-old female with longstanding history of morbid obesity and worsening comorbidities. FINDINGS Normal anatomy within the operative field. SPECIMENS None. WOUND TYPE Clean. DRAINS Jeffery-Raymond drain Edith drain and Wilson catheter. OPERATION PERFORMED Laparoscopic Ender-en-Y gastric bypass and esophagogastroduodenoscopy. SURGEON Janett Bledsoe MD METAL WEATHER STRIPPER Perfecto Nunez MD INDICATIONS FOR SURGERY FINDINGS Normal anatomy within the operative field. ANESTHESIA General endotracheal. SPECIMENS None. WOUND CLASSIFICATION Clean. DRAINS Jeffery-Raymond drain, Edith drain and Wilson catheter. COMPLICATIONS None. ESTIMATED BLOOD LOSS Minimal. CONDITION Good. DESCRIPTION OF PROCEDURE The patient was prepped and draped over the abdomen in the usual sterile fashion. A supraumbilical transverse 1 cm incision was made with the #15 blade. An optiview 12 mm port was advanced under laparoscopic guidance into the peritoneal cavity. A 1 cm right flank and right upper quadrant ports were placed under direct vision followed by placement of left sided matching ports. A 5 mm incision was made in the subxiphoid area and the Jennifer liver retractor was inserted into the peritoneal cavity and the left lobe of the liver was retracted off of the GE junction. The pars flaccida was entered by dividing the gastrohepatic ligament with the harmonic scalpel. The retrogastric space was developed and a 20 mL sizing balloon was used to delineate the size of the pouch. An EndoGIA stapler was then used to transect the lesser curve vessels and the lesser curve of the pouch. Next a gastrotomy was created in the anterior wall of the remnant stomach using the harmonic scalpel. The left mid abdominal port site was sequentially dilated with Magnolia dilators and we then passed a 25 mm Ethicon circular stapling anvil through this left mid abdominal port site into the p eritoneal cavity. The circular stapling anvil was placed through the gastrotomy and brought up to the gastric pouch. The shaft of the anvil was then completely brought out through the anterior wall of the gastric pouch. The gastrotomy was then closed with a transverse load of the EndoGIA stapler. We then formed the gastric pouch around the circular stapling anvil using multiple loads of the EndoGIA stapler dividing from the lesser curve up to the angle of His. Tisseel was then placed over the staple line. Next we addressed the jejunum. The omentum was divided down to the transverse colon with the harmonic scalpel. The small bowel was then divided approximately 25 cm distal to the ligament of Treitz with the linear stapler. We then measured off an approximately 100 cm ender limb and brought the jejunum up to the hepatobiliary limb in a side to side fashion. Two small antimesenteric enterotomies were made with the harmonic scalpel. The linear stapler was fired from my side of the table intraluminally. We then extended the anastomosis the opposite way by firing from the assistant merchandise manager's side of the table. The anastomotic incision was then closed with the linear stapler. Mesenteric defect was closed with a running 2-0 braided absorbable suture. The tip of the jejunal ender limb was then opened with the harmonic scalpel and the 25 mm circular stapler was advanced. The left mid abdominal port site into the apex of the jejunal ender limb. The trocar was then brought out under laparoscopic guidance and mated with the anvil. The stapler was brought together and fired in standard fashion and then removed. There were 2 complete tissue rings noted on the back table. The mesentery of the J tip of the jejunum was then taken with the harmonic scalpel and the tip of the jejunum was closed and divided with the linear stapler. This segment of jejunum was then placed in an Endocatch bag and removed from the abdomen. The anastomosis was then oversewn anteriorly with the running 2-0 absorbable suture. The bowel clamp was then placed distal to the gastrojejunostomy. At that point an endoscope was passed down into the gastric pouch. The anastomosis was inspected and was found to be completely intact and patent. The anastomosis was then blown up underwater and remained air tight. The endoscope was removed and the bowel clamp was released. A 19 Sudanese Davon drain was placed in the left upper quadrant and laid near the anastomosis. The liver retractor was then removed. The operative site remained clean and hemostatic. The ports were removed under direct vision and remained hemostatic. The left flank port site fascia was closed with 0 Vicryl suture using the suture passer device. The wounds were irrigated and closed throughout with al. The drain exited through the left upper quadrant port site and was secured to the skin with a 3-0 nylon suture. Local anesthesia was infiltrated into all of the incisions and the 0.25 inch Edith drain was placed in the left flank port site for further drainage. The patient tolerated the procedure well. COMPLICATIONS None. ESTIMATED BLOOD LOSS Minimal. CONDITION Good. *END OF REPORT* Kamryn C.T. C.T. E: 10/31/2014 11:55 C.TAfsaneh/ Conf# [id number] Doc#: [id number] cc: 10/31/2014 [facility] Teressa Garcia Consultation Report Consultati on DATE OF CONSULTATION 10/30/2014 DATE OF 1955 ATTENDING PHYSICIAN Janett Bledsoe MD CONSULTING PHYSICIAN Miri Bernard MD REASON FOR CONSULTATION To help in postoperative medical management. CHIEF COMPLAINT Morbid obesity with inability to lose weight. HISTORY OF PRESENT ILLNESS The patient is a pleasant 59-year-old female who has lived with progressive obesity throughout her entire adult life. She was admitted for an elective laparoscopic Neder-en-Y gastric bypass surgery after she failed to maintain weight loss with diet, exercise and previous pharmacological therapy. The patient tolerated her surgery very well. She is currently complaining of 3/10 scale intensity pain in her left upper abdominal quadrant. She has persistent nausea but no vomiting. She denies chest pain or shortness of breath, no fever or chills. PAST MEDICAL HISTORY Significant for diabetes mellitus type 2, has been insulin requiring, hypertension, hyperlipidemia, history of cerebrovascular accident with no significant neurological deficit. She has obstructive sleep apnea per clinical diagnosis, urinary stress incontinence, degenerative joint disease, GERD along with anxiety and depression. History of peripheral neuropathy secondary to her diabetes. She has hypothyroidism and glaucoma. PAST SURGICAL HISTORY She had prior back surgery, hysterectomy and appendectomy. MEDICATIONS Lantus 40 units subcu at bedtime. She takes NovoLog before meals, magnesium hydroxide, methocarbamol, Xanax, Klonopin, Lipitor, Silver Star, Percocet, levothyroxine, lisinopril, amlodipine, Benadryl, gabapentin and Janumet. She takes Latanoprost ophthalmic solution. ALLERGIES NO KNOWN DRUG ALLERGIES. REVIEW OF SYSTEMS The 14 point system review was positive for left upper quadrant abdominal pain as described above. She has persistent nausea, no vomiting. She has intermittent lower back pain. She has intermittent lower extremity swelling. She has dyspnea on exertion. She denies any previous history of gout flare. She has pain in her knees and hips, occasional heartburn, otherwise negative. FAMILY HISTORY Significant for diabetes, obesity and cancer. SOCIAL HISTORY The patient is a 59-year-old female who denies tobacco use. She denies alcohol or illicit drug use. PHYSICAL EXAMINATION GENERAL: The patient was alert and oriented to time, place, person, was not in acute respiratory distress. She is morbidly obese. She has a BMI of 51.37. VITAL SIGNS: Temperature 97.4, pulse 84, respiratory rate 18, blood pressure 153/71, oxygen saturation 96% on 8 L oxygen. HEENT: Atraumatic, normocephalic. Pupils equal, round, reactive to light. Extraocular movements intact. Oropharynx dry. NECK: Supple. No thyromegaly. CHEST: Clear to auscultation. No rhonchi, no rales. HEART: Regular rate and rhythm, distant. ABDOMEN: Soft, protuberant. She has dressing and a percutaneous drain around the surgical site. No bowel sounds. EXTREMITIES: No clubbing, cyanosis or edema. NEUROLOGIC: Nonfocal. LABORATORY DATA The patient's glucose is 218. Her electrolytes were within normal. BUN 24, creatinine 1.11. Her GFR is 50.1. Her glucose 133. Her liver function tests unremarkable. Her iron 36, folic acid 12.44. Uric acid 6.7. Vitamin B12 339. Magnesium 1.6, prealbumin 21. Hemoglobin A1C 8.2. Total cholesterol 153, HDL 42, LDL 75, triglycerides 196. TSH 1.63. Her hemoglobin was 10.5, MCV 89.7, MCH 29.9. EKG showed sinus rhythm with a rate of 89. She has LVH with incomplete left bundle branch block. No acute ST-T wave changes. DIAGNOSTIC IMPRESSION 1. Morbid obesity with comorbidities. The patient tolerated laparoscopic Ender-en-Y gastric bypass surgery. 2. Diabetes mellitus type 2, insulin re quiring. 3. Essential hypertension. 4. Dyslipidemia. 5. Chronic kidney disease. 6. Hyperuricemia. 7. Peripheral neuropathy. 8. Obstructive sleep apnea per clinical diagnosis. PLAN Would keep the patient on oxygen titrated to keep saturation above 92%. Would encourage aggressive incentive spirometry at bedside 10 times an hour. Would use albuterol nebulizers q.6h as needed. Monitor for sleep apnea decompensation while on SPECTROSCOPIST Dilaudid for pain control. Agree with THOMAS del rosario, arteriovenous impulse along with heparin subcu for DVT prophylaxis. Encourage early ambulation. The patient is to use Lovenox 40 mg subcu daily for 1 week after discharge. Would give hydralazine 10 mg IV q.6h as needed for systolic blood pressure above 145 mmHg. Would give Lantus 20 units subcu x1. Monitor Accu- Cheks q.4h and treat hyperglycemia with a sliding scale of Humalog insulin. Would recheck the patient's uric acid level in the a.m. to evaluate after 2 weeks of 15 pound weight loss and high protein diet. The patient may need a small dose of allopurinol therapy to prevent acute gout flare in the postoperative setting. Would avoid Toradol treatment as the patient's kidney function seems to be borderline at this stage. Would review the patient's medication in the a.m. for future use. Dr. Bledsoe, thank you for allowing me to participate in the patient's care and management. *END OF REPORT* HMS/ck C.T. C.T. E: 10/30/2014 21:39 C.T./ Conf# [id number] Doc#: [id number] cc: 10/30/2014 [facility] Procedure Report Procedure Report Procedure Note [facility] Patient: TOSHA LEVINE Age: 59 years Sex: Female : 1955 Associated Diagnoses: None Author: JANETT BLEDSOE MD Operative Information Date of Procedure: 10/30/2014. Pre-Op Diagnosis: Morbid obesity. Post-Op Diagnosis: Same as Pre-Operative Diagnosis. Procedure: Laparoscopic Ender-en-Y Gastric Bypass, EGD. Indication: Morbid obesity with comorbidities. Surgeon(s): JANETT BLEDSOE MD. Playroom Attendant[s]: VAMSHI MARTINEZ, PERFECTO KEENAN. Anesthesia: General. Findings: Normal anatomy. Description of Procedure: See dictation. Specimens: None. Wound Type: Clean. Drains: Jeffery-Raymond, [place], Catheter. Complications: None. Estimated blood loss: Minimal. Patient Condition: Good. [Electronically Signed By:] JANETT DAS MD On, 10/30/2014 11:53 AM 10/30/2014 [facility] Discharge Summaries Results Value Date Source Discharge Summary Discharge Nieves mmary DATE OF ADMISSION 10/30/2014 DATE OF DISCHARGE 10/31/2014 DATE OF 1955 ADMITTING PHYSICIAN Janett Bledsoe MD REASON FOR ADMISSION Status post laparoscopic Ender-en-Y gastric bypass. FINAL DIAGNOSIS Morbid obesity with comorbidities. PATIENT PROFILE A 59-year-old female with longstanding history of morbid obesity and worsening comorbidities who underwent the above stated bariatric procedure. HOSPITAL COURSE The patient had an uneventful postoperative recovery. On postoperative day #1, she was tolerating a bariatric liquid diet. Her pain was controlled on oral medications. She was ambulating without difficulty and voiding spontaneously. All of her vital signs, physical exam findings and lab results were within expected limits and she was therefore deemed fit for discharge. DISCHARGE INSTRUCTIONS The patient is being discharged home in stable condition. She is to continue a bariatric liquid diet as tolerated. She is to resume activities as tolerated. She received teaching for application of Lovenox injections at home. She also received consultation by Dr. Beranrd to address medical problems and adjust home medications. She was given a prescription for Hycet and Omeprazole and she will follow up with me in clinic in 1 week. *END OF REPORT* ROSA/sheri C.T. C.T. E: 11/01/2014 09:32 C.T./ Conf# [id number] Doc#: [id number] cc: 11/01/2014 [facility] Teressa [employer] Feura [place] History and Physicals Results Value Date Source History and Physical Preop History and Physical DATE OF 1955 DATE OF ADMISSION 10/30/2014 CHIEF COMPLAINT Inability to control her weight. HISTORY OF PRESENT ILLNESS This is a 59-year-old female who has been overweight for most of her adult life and has been trying to lose weight for most of that time without success. She has been contemplating weight loss surgery for the past several years and wishes to proceed at this time. The patient has multiple comorbidities as a result of her obesity and has tried multiple weight loss regimens without success including Nutrisystem and Fen-Phen pills. She has no other complaints at this time. PAST MEDICAL HISTORY Hypertension, peripheral edema, back pain, history of cerebral vascular accident, anxiety, stress urinary incontinence, sleep apnea. Endocrine history: type 2 diabetes, morbid obesity. All other metabolic disorders for weight gain have been ruled out. PAST SURGICAL HISTORY Appendectomy, hysterectomy and back surgery. FAMILY HISTORY Diabetes, obesity, cancer. SOCIAL HISTORY Past smoker. Denies alcohol or illicit drug use. CURRENT MEDICATIONS 1. Janumet. 2. Lisinopril. 3. Synthroid. 4. Robaxin. 5. Neurontin. 6. Norvasc. 7. Furosemide. 8. Atorvastatin. 9. Potassium citrate. 10. Aspirin. 11. Silver Star. 12. Xanax. 13. Benadryl. 14. Milk of Magnesia. ALLERGIES NO KNOWN DRUG ALLERGIES. REVIEW OF SYSTEMS The patient denies any fevers, chills, night sweats, exertional chest pain, shortness of breath, abdominal pain, nausea, vomiting or diarrhea. All other systems are otherwise negative or as stated in the past medical history. PHYSICAL EXAMINATION GENERAL: This is a fully alert and oriented female patient in no acute distress. VITAL SIGNS: Blood pressure 138/80, pulse 65 and regular, respirations 14 and nonlabored, height 5 feet 6 inches, weight 326 pounds. BMI 53. HEAD: Normocephalic, atraumatic. NECK: Supple, no adenopathy. CHEST: Regular, unlabored respirations. Clear to auscultation bilaterally. HEART: Regular rate and rhythm. No murmurs. ABDOMEN: Obese; however, soft and nontender. EXTREMITIES: No clubbing, cyanosis or edema. SKIN: Warm, pink and dry. NEUROLOGIC: Cranial nerves II-XII grossly intact. PSYCHIATRIC: Appropriate mood and affect. DIAGNOSTIC AND RADIOLOGIC STUDIES The patient underwent an esophagogastroduodenoscopy showing no masses, ulcerations, lesions or polyps and test for H. pylori was negative. She also underwent an EKG which demonstrated an incomplete left bundle branch block and left ventricular hypertrophy. The patient also underwent a myocardial SPECT scan which demonstrated no ischemia or infarction and normal left ventricular size with ejection fraction of 65%. She also underwent pulmonary function tests which were normal. CONSULTS The patient consulted with a bariatric dietitian and participated in a preoperative education class. She also consulted with Dr. Horace Theodore, psychologist, and was deemed an appropriate candidate for weight loss surgery. The patient also obtained a preoperative cardiac clearance for weight loss surgery and was deemed low cardiovascular risk. LABORATORY DATA CMP overall within normal limits. LFTs within normal limits. Iron low at 36. Folate 12.4, uric acid high at 6.7. Vitamin B12 339. Magnesium 1.6, prealbumin 21. Hemoglobin A1c elevated at 8.2%. Lipid studies within normal limits except for elevated triglycerides of 196. Thyroid studies within normal limits Hematology WBC 11, hemoglobin 10.5, hematocrit 31.5, platelets 229. DIAGNOSTIC IMPRESSION Morbid obesity with comorbidities. PLAN After discussing the options with the patient he wishes to undergo a laparoscopic Ender-en-Y gastric bypass. The patient was explained the procedure in detail and participated in preoperative education of the risks and benefits of the surgery including but not limited to bleeding, hematoma, injury to surrounding structures, infection, abscess, anastomotic leak, staple line dehiscence marginal ulcer, stricture, gastrogastric fistula, internal hernia, bowel obstruction, inadequate weight loss, delayed weight regain, malabsorption syndrome, risk of anesthesia, conversion to open procedure, and cardiovascular risk such as heart attack, blood clots, stroke and . All questions were answered to her satisfaction and she wishes to proceed with surgery. *END OF REPORT* ROSA/sheri C.T. C.T. E: 10/29/2014 12:11 C.T./ Pam# [id number] Doc#: [id number] cc: 10/29/2014 [facility] Vital Signs No Data Provided for This Section Encounters Location Location Details Encounter Type Encounter Number Reason For Visit Attending Provider ADM Date DC Date Status Source 006 006 N [id number] KANWAL BLEDSOE MD 02/14/2015 02/14/2015 Active [facility] [facility] [id number] MIRI BERNARD MD 11/08/2014 11/09/2014 [facility] 006 006 I [id number] KANWAL BLEDSOE MD 10/30/2014 11/01/2014 Active [facility] [place] 006 006 N [id number] KANWAL BLEDSOE MD 09/07/2014 09/07/2014 Active [facility] [place] 006 006 # [id number] DX INT JANETT BLEDSOE MD 08/21/2014 Active [facility] Procedures No Data Provided for This Section Plan of Care No Data Provided for This Section Social History No Data Provided for This Section Assessment and Plan No Data Provided for This Section Family History No Data Provided for This Section Advance Directives No Data Provided for This Section Functional Status No Data Provided for This Section
--- OUTSIDE RECORDS SUMMARY | 2020-03-08 11:54 | XMS REPORT | Clinical Summary ---
Author Author [facility] Organization [facility] Address Unknown Phone Unavailable Care Team Providers Care Bingo Caller Name Role Phone Kathleen Zazueta MD Unavailable Unavailable Huber Ayoub MD PCP Source Comments Some departments are not documenting in the electronic medical record. If you d o not see the information that you expected, contact Release of Information in [facility] [employer] Information Management department at [phone] for further assistan ce in locating additional records.[facility] Allergies No Known Allergies Medications End Date Status Medication Sig Dispensed Refills Start Date Active furosemide (LASIX) 40 mg Take 40 mg by 0 tablet mouth daily. Active Sitagliptin-Metformin Take 1 Tab by 0 (JANUMET) 50-1,000 mg tab mouth twice daily with meals. Active methocarbamol (ROBAXIN) Take 750 mg 0 750 mg tablet by mouth four times daily. Active levothyroxine (SYNTHROID) Take 25 mcg 0 25 mcg tablet by mouth daily. Active lisinopril (PRINIVIL, Take 40 mg by 0 ZESTRIL) 40 mg tablet mouth daily. Active amLODIPine (NORVASC) 5 mg Take 5 mg by 0 tablet mouth daily. Active aspirin EC 81 mg tablet Take 81 mg by 0 mouth daily. Active gabapentin (NEURONTIN) Take 600 mg 0 600 mg tablet by mouth twice daily. Active atorvastatin (LIPITOR) 40 Take 40 mg by 0 mg tablet mouth daily. Active insulin glargine (LANTUS) Inject 80 0 100 unit/mL injection Units into area(s) as directed at bedtime daily. Active INSULIN ASPART (NOVOLOG Inject into 0 SC) area(s) as directed as Needed. Active Problems Problem Noted Date Morbid obesity with BMI of 50.0-59.9, adult 12/15/19 14 Overview: BMI 51. 58 year old female with super obesity who presents to clinic for evaluation. She would like to discuss surgery L ast Assessment & Plan: Plan: 1. Risks, benefits and alternatives di scussed with patient. She would be a better candidate for gastric sleeve r ather than bypass at this point given her many co-morbidities. She chao l continue bariatric protocol and then we will proceed with surgery (lap gastric sleeve) 2. Needs Cardiology Referral and clear ance prior to surgery. Evelio does not have railways assistant 3. Needs Psychology Referral and evalu ation prior to surgery. 4. Will see computer support analyst next week and betty agrawal discussed with Brenna already 5. Patient agrees to lose required trell ght before surgery. Social History Date Tobacco Use Types Packs/Day Years Used Former Smoker Drinks/Week oz/Week Comments Alcohol Use Not Asked Sex Assigned at Date Recorded Not on file Industry Job Start Date Occupation Not on file Not on file Not on file Travel End Travel History Travel Start No recent travel history available. Last Filed Vital Signs Reading Time Taken Comments Vital Sign 156/74 05/17/2014 11:59 AM CDT Blood Pressure 90 05/17/2014 11:59 AM CDT Pulse 36.9 C (98.4 F) 05/17/2014 11:59 AM CDT Temperature 18 05/17/2014 11:59 AM CDT Respiratory Rate - - Oxygen Saturation - - Inhaled Oxygen Concentration 148.6 kg (327 lb 9.6 oz) 05/17/2014 11:59 AM CDT Weight 167.6 cm (5' 6") 05/17/2014 11:59 AM CDT Height 52.88 05/17/2014 11:59 AM CDT Body Mass Index Plan of Treatment Health Maintenance Due Date Last Done Comments MEDICARE ANNUAL WELLNESS 1955 VISIT HIV SCREENING 1969 DTAP/TDAP VACCINES (1 - 1972 Tdap) HEPATITIS C SCREENING 1972 PHYSICAL (COMPREHENSIVE) 1972 EXAM BREAST CANCER SCREENING 1994 COLORECTAL CANCER 2004 SCREENING SHINGLES RECOMBINANT 2004 VACCINE (1 of 2) OSTEOPOROSIS 2019 SCREENING/MONITORING PNEUMONIA (PPSV23) 2019 VACCINE (1 of 1 - PPSV23) INFLUENZA VACCINE 05/30/2020 Results Not on filefrom Last 3 Months Insurance Type Payer Benefit Subscriber ID Effective Phone Address Plan / Dates Group Medicare MEDICARE MEDICARE xxxxxxxxxx 2005-P PART A AND resent [id number] Advance Directives Patient Gui Developer Explanation Type Date Recorded Advance 04/27/2014 7:11 AM Directive/DPOA
--- OUTSIDE RECORDS SUMMARY | 2020-03-08 11:56 | XMS REPORT | Continuity of Care Document ---
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 Ot Z90. 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 07/16/2017 LAURA TELLEZ DO, Ot J45.90 9 UNSPECIFIED ASTHMA, UNCOMPLICATED 07/16/2017 LAURA TELLEZ DO, Ot L97.32 9 NON-PRESSURE CHRONIC ULCER OF LEFT ANKLE 07/16/2017 LAURA TELLEZ DO Ot M47.81 6 SPONDYLOSIS W/O MYELOPATHY OR RADICULOPA 07/16/2017 LAURA TELLEZ DO, Ot Z79.89 9 OTHER [facility] (CURRENT) DRUG THERAPY 07/16/2017 LAURA TELLEZ DO, Ot Z87.89 1 PERSONAL HISTORY OF NICOTINE DEPENDENCE 07/19/2017 MARIE LUNA DO Ot J18.9 PNEUMONIA, UNSPECIFIED ORGANISM 07/19/2017 MARIE LUNA DO Ot R09.02 HYPOXEMIA 08/18/2017 ERIC MARTINEZ, Gema AVILES Ot E11.622 TYPE 2 DIABETES MELLITUS WITH OTHER SKIN 08/18/2017 Gema REYES MD Ot I73 .9 PERIPHERAL VASCULAR DISEASE, UNSPECIFIED 08/18/2017 Gema REYES MD Ot L97.929 NON-PRS CHRONIC ULC UNSP PRT OF L LOW LE 12/09/2017 Ot V76.12 OT SCREEN MAMMO- MALIGN NEOPLASM OF LAYLA 12/09/2017 Ot 553.20 DUSTIN TRAL HERNIA NOS 12/09/2017 Ot 789.01 ABD OMINAL PAIN, RIGHT UPPER QUADRANT 12/09/2017 MARIE LUNA DO Ot 440.20 ATHEROSCLEROSIS [place] ARTERIES EXTREMIT 12/09/2017 MARIE LUNA DO Ot V81.5 SCREEN FOR NEPHROPATHY 12/09/2017 MARIE ULNA DO Ot 401.9 HYPERTENSION NOS 12/09/2017 MARIE [...] SPEC MANIFEST, TYPE II OR UNS 12/09/2017 ISHMAEL MARTINEZ, JORGE Scott Ot 707.15 ULCER OF OTHER PART OF FOOT 12/09/2017 MARIE LUNA DO Ot K43.9 VENTRAL HERNIA WITHOUT OBSTRUCTION OR GA 12/09/2017 MARIE LUNA DO Ot N20.0 CALCULUS OF KIDNEY 12/09/2017 HARRISON BOYKIN MD Ot N20.0 CALCULUS OF KIDNEY 12/09/2017 MARIE LUNA DO Ot Z12.31 ENCNTR SCREEN MAMMOGRAM FOR MALIGNANT NE 12/09/2017 MARIE LUNA DO Ot J18.9 PNEUMONIA, UNSPECIFIED ORGANISM 12/09/2017 MARIE LUNA DO Ot R09.02 HYPOXEMIA 12/10/2017 Ot V76.12 OTH SCREEN MAMMO- MALIGN NEOPLASM OF LAYLA 12/10/2017 Ot 553.20 DUSTIN TRAL HERNIA NOS 12/10/2017 Ot 789.01 ABD OMINAL PAIN, RIGHT UPPER QUADRANT 12/10/2017 MARIE LUNA DO Ot 440.20 ATHEROSCLEROSIS [place] ARTERIES EXTREMIT 12/10/2017 MARIE LUNA DO Ot V81.5 SCREEN FOR NEPHROPATHY 12/10/2017 MARIE LUNA DO Ot 401.9 HYPERTENSION NOS 12/10/2017 MAIRE LUNA DO Ot 786.09 RESPIRATORY ABNORM NEC [...] DO Ot N20.0 CALCULUS OF KIDNEY 12/10/2017 HARRISON BOYKIN MD Ot N20.0 CALCULUS OF KIDNEY 12/10/2017 MARIE LUNA DO, Ot Z12.31 ENCNTR SCREEN MAMMOGRAM FOR MALIGNANT NE 12/10/2017 MARIE LUNA DO, Ot J18.9 PNEUMONIA, UNSPECIFIED ORGANISM 12/10/2017 MARIE LUNA DO, Ot R09.02 HYPOXEMIA 12/13/2017 MARIE LUNA DO, Ot M47.817 SPONDYLS W/O MYELOPATHY OR RADICULOPATHY 12/13/2017 MARIE LUAN DO, Ot M48.07 SPINAL STENOSIS, LUMBOSACRAL REGION 12/13/2017 MARIE LUNA DO, Ot M51.27 OTHER INTERVERTEBRAL DISC DISPLACEMENT, 12/13/2017 MARIE LUNA DO, Ot 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 DISC DEGENERATION, 12/13/2017 MARIE LUNA DO, Ot T14.90XA INJURY, UNSPECIFIED, INITIAL ENCOUNTER 12/13/2017 MARIE LUNA DO, Ot Z98.890 OTHER SPECIFIED POSTPROCEDURAL STATES 12/13/2017 MARIE LUNA DO, Ot M47.817 SPONDYLS W/O MYELOPATHY OR RADICULOPATHY 12/13/2017 MARIE LUNA DO, Ot M48.07 SPINAL STENOSIS, LUMBOSACRAL REGION 12/13/2017 MARIE LUNA DO, Ot M51.27 OTHER INTERVERTEBRAL DISC DISPLACEMENT, 12/13/2017 MARIE LUNA DO, Ot 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 DISC DEGENERATION, 12/13/2017 MARIE LUNA DO, Ot T14.90XA INJURY, UNSPECIFIED, INITIAL ENCOUNTER 12/13/2017 MARIE LUNA DO, Ot Z98.890 OTHER SPECIFIED POSTPROCEDURAL STATES 12/13/2017 Ot V76.12 OT SCREEN MAMMO- MALIGN NEOPLASM OF LAYLA 12/13/2017 Ot 553.20 DUSTIN TRAL HERNIA NOS 12/13/2017 Ot 789.01 ABD OMINAL PAIN, RIGHT UPPER QUADRANT 12/13/2017 MARIE LUNA DO Ot 440.20 ATHEROSCLEROSIS [place] ARTERIES EXTREMIT 12/13/2017 MARIE LUNA DO Ot V81.5 SCREEN FOR NEPHROPATHY 12/13/2017 MARIE LUNA DO Ot 401.9 HYPERTENSION NOS 12/13/2017 MARIE LUNA DO Ot 786.09 RESPIRATORY ABNORM NEC 12/13/2017 MARIE LUNA DO Ot 786.09 RESPIRATORY ABNORM NEC 12/13/2017 MARIE LUNA DO, Ot V72.83 EXAM PRE-OPERATIVE NEC 12/13/2017 ISHMAEL MARTINEZ, JORGE Scott Ot 250.80 DIAB W OTH SPEC MANIFEST, TYPE II OR UNS 12/13/2017 JORGE QUIÑONES MD Ot 707.15 ULCER OF OTHER PART OF FOOT 12/13/2017 JORGE QUIÑONES MD Ot 250.80 DIAB W OTH SPEC MANIFEST, TYPE II OR UNS 12/13/2017 JORGE QUIÑONES MD Ot 707.15 ULCER OF OTHER PART OF FOOT 12/13/2017 MARIE LUNA DO Ot K43.9 VENTRAL HERNIA WITHOUT OBSTRUCTION OR GA 12/13/2017 MARIE LUNA DO, Ot N20.0 CALCULUS OF KIDNEY 12/13/2017 LUCRETIA MARTINEZ, HARRISON Rueda Ot N20.0 CALCULUS OF KIDNEY 12/13/2017 MARIE LUNA DO Ot Z12.31 ENCNTR SCREEN MAMMOGRAM FOR MALIGNANT NE 12/13/2017 MARIE LUNA DO, Ot J18.9 PNEUMONIA, UNSPECIFIED ORGANISM 12/13/2017 MARIE LUNA DO Ot R09.02 HYPOXEMIA 12/13/2017 MARIE LUNA DO, Ot M47.817 SPONDYLS W/O MYELOPATHY OR RADICULOPATHY 12/13/2017 MARIE LUNA DO, Ot M48.07 SPINAL STENOSIS, LUMBOSACRAL REGION 12/13/2017 MARIE LUNA DO, Ot M51.27 OTHER INTERVERTEBRAL DISC DISPLACEMENT, 12/13/2017 MARIE LUNA DO, Ot 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 DISC DEGENERATION, 12/13/2017 MARIE LUNA DO, Ot T14.90XA INJURY, UNSPECIFIED, INITIAL ENCOUNTER 12/13/2017 MARIE LUNA DO, Ot Z98.890 OTHER SPECIFIED POSTPROCEDURAL STATES 12/31/2017 MARIE LUNA DO, Ot M47.817 SPONDYLS W/O MYELOPATHY OR RADICULOPATHY 12/31/2017 MARIE LUNA DO, Ot M48.07 SPINAL STENOSIS, LUMBOSACRAL REGION 12/31/2017 MARIE LUAN DO Ot M51.27 OTHER INTERVERTEBRAL DISC DISPLACEMENT, 12/31/2017 MARIE LUNA DO, Ot 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 DISC DEGENERATION, 12/31/2017 LUNAMARIE JEROME DO Ot T14.90XA INJURY, UNSPECIFIED, INITIAL ENCOUNTER 12/31/2017 MARIE LUNA DO Ot Z98.890 OTHER SPECIFIED POSTPROCEDURAL STATES 01/05/2018 MARIE LUNA DO Ot M47.817 SPONDYLS W/O MYELOPATHY OR RADICULOPATHY 01/05/2018 MARIE LUNA DO Ot M48.07 SPINAL STENOSIS, LUMBOSACRAL REGION 01/05/2018 MARIE LUNA DO Ot M51.27 OTHER INTERVERTEBRAL DISC DISPLACEMENT, 01/05/2018 MARIE LUNA DO Ot 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 DISC DEGENERATION, 01/05/2018 MARIE LUNA DO, Ot T14.90XA INJURY, UNSPECIFIED, INITIAL ENCOUNTER 01/05/2018 MARIE LUNA DO Ot Z98.890 OTHER SPECIFIED POSTPROCEDURAL STATES 02/03/2018 MARIE LUNA DO Ot E87.8 OTH DISORDERS OF ELECTROLYTE AND FLUID B 02/03/2018 MARIE LUNA DO Ot G93.9 DISORDER OF BRAIN, UNSPECIFIED 02/03/2018 MARIE LUNA DO Ot R25.1 TREMOR, UNSPECIFIED 02/03/2018 MARIE LUNA DO Ot Z86.73 PRSNL HX OF TIA (TIA), AND CEREB INFRC W 02/03/2018 ZOIE SWIFT MD, Ot M48.02 SPINAL STENOSIS, CERVICAL REGION 02/03/2018 ZOIE SWIFT MD, Ot M50.223 OTHER CERVICAL DISC DISPLACEMENT AT C6-C 02/03/2018 ZOIE SWIFT MD, Ot M50.30 OTHER CERVICAL DISC DEGENERATION, UNSP C 02/03/2018 ZOIE SWIFT MD, Ot M99.71 CONN TISS AND DISC STENOSIS OF INTVRT FO 02/03/2018 ZOIE SWIFT MD, Ot R27.0 ATAXIA, UNSPECIFIED 02/15/2018 ZOIE SWIFT MD, Ot M47.812 SPONDYLOSIS W/O MYELOPATHY OR RADICULOPA 02/15/2018 ZOIE SWIFT MD, Ot M48.02 SPINAL STENOSIS, CERVICAL REGION 02/15/2018 ZOIE SWIFT MD Ot M50.322 OTHER CERVICAL [...] SWIFT MD Ot R27.0 ATAXIA, UNSPECIFIED 02/24/2018 LUNA DOMARIE Ot E87.8 OTH DISORDERS OF ELECTROLYTE AND FLUID B 02/24/2018 LUNA DOMARIE Ot G93.9 DISORDER OF BRAIN, UNSPECIFIED 02/24/2018 LUNAMARIE PUENTE DO Ot R25.1 TREMOR, UNSPECIFIED 02/24/2018 LUNA DOMARIE Ot Z86.73 PRSNL HX OF TIA (TIA), AND CEREB INFRC W 02/28/2018 ZOIE SWIFT MD, Ot M48.02 SPINAL STENOSIS, CERVICAL REGION 02/28/2018 ZOIE SWIFT MD Ot M50.223 OTHER CERVICAL DISC DISPLACEMENT AT C6-C 02/28/2018 ZOIE SWIFT MD Ot M50.30 OTHER CERVICAL DISC DEGENERATION, UNSP C 02/28/2018 ZOIE SWIFT MD Ot M99.71 CONN TISS AND DISC STENOSIS OF INTVRT FO 02/28/2018 ZOIE SWIFT MD Ot R27.0 ATAXIA, UNSPECIFIED 03/03/2018 LUNA DOMARIE Ot E87.8 OTH DISORDERS OF ELECTROLYTE AND FLUID B 03/03/2018 LUNAMARIE PUENTE DO Ot G93.9 DISORDER OF BRAIN, UNSPECIFIED 03/03/2018 MARIE LUNA DO Ot R25.1 TREMOR, UNSPECIFIED 03/03/2018 LUNA DOMARIE Ot Z86.73 PRSNL HX OF TIA (TIA), AND CEREB INFRC W 03/08/2018 ZOIE SWIFT MD Ot M47.812 SPONDYLOSIS W/O MYELOPATHY OR RADICULOPA 03/08/2018 ZOIE SWIFT MD, Ot M48.02 SPINAL STENOSIS, CERVICAL REGION 03/08/2018 ZOIE SWIFT MD Ot M50.322 OTHER CERVICAL DISC DEGENERATION AT C5-C 03/11/2018 ZOIE SWIFT MD, Ot M47.812 SPONDYLOSIS W/O MYELOPATHY OR RADICULOPA 03/11/2018 ZOIE SWIFT MD, Ot M48.02 SPINAL STENOSIS, CERVICAL REGION 03/11/2018 ZOIE SWIFT MD, Ot M50.322 OTHER CERVICAL DISC DEGENERATION AT C5-C 05/24/2018 MARIE LUNA DO Ot 440.20 ATHEROSCLEROSIS [place] ARTERIES EXTREMIT 05/24/2018 MARIE LUNA DO Ot V81.5 SCREEN FOR NEPHROPATHY 05/24/2018 MARIE LUNA DO Ot 401.9 HYPERTENSION NOS 05/24/2018 MARIE LUNA DO Ot 786.09 RESPIRATORY ABNORM NEC 05/24/2018 MARIE LUNA DO Ot 786.09 RESPIRATORY ABNORM NEC 05/24/2018 MARIE LUNA DO, Ot V72.83 EXAM PRE-OPERATIVE NEC 05/24/2018 ISHMAEL MARTINEZ, JORGE Scott Ot 250.80 DIAB W OTH SPEC MANIFEST, TYPE II OR UNS 05/24/2018 JORGE QUIÑONES MD Ot 707.15 ULCER OF OTHER PART OF FOOT 05/24/2018 ISHMAEL MARTINEZ, JORGE Scott Ot 250.80 DIAB W OTH SPEC MANIFEST, TYPE II OR UNS 05/24/2018 JORGE QUIÑONES MD Ot 707.15 ULCER OF OTHER PART OF FOOT 05/24/2018 MARIE LUNA DO Ot K43.9 VENTRAL HERNIA WITHOUT OBSTRUCTION OR GA 05/24/2018 MARIE LUNA DO Ot N20.0 CALCULUS OF KIDNEY 05/24/2018 HARRISON BOYKIN MD Ot N20.0 CALCULUS OF KIDNEY 05/24/2018 MARIE LUNA DO Ot Z12.31 ENCNTR SCREEN MAMMOGRAM FOR MALIGNANT NE 05/24/2018 MARIE LUNA DO, Ot J18.9 PNEUMONIA, UNSPECIFIED ORGANISM 05/24/2018 MARIE LUNA DO Ot R09.02 HYPOXEMIA 05/24/2018 MARIE LUNA DO, Ot M47.817 SPONDYLS W/O MYELOPATHY OR RADICULOPATHY 05/24/2018 MARIE LUNA DO, Ot M48.07 SPINAL STENOSIS, LUMBOSACRAL REGION 05/24/2018 MARIE LUNA DO Ot M51.27 OTHER INTERVERTEBRAL DISC DISPLACEMENT, 05/24/2018 MARIE LUNA DO, Ot 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 DISC DEGENERATION, 05/24/2018 MARIE LUNA DO, Ot T14.90XA INJURY, UNSPECIFIED, INITIAL ENCOUNTER 05/24/2018 MARIE LUNA DO, Ot Z98.890 OTHER SPECIFIED POSTPROCEDURAL STATES 05/24/2018 MARIE LUNA DO, Ot E87.8 OTH DISORDERS OF ELECTROLYTE AND FLUID B 05/24/2018 MARIE LUNA DO, Ot G93.9 DISORDER OF BRAIN, UNSPECIFIED 05/24/2018 [...] Ot R27.0 ATAXIA, UNSPECIFIED 05/24/2018 ZOIE SWIFT MD, Ot M47.812 SPONDYLOSIS W/O MYELOPATHY OR RADICULOPA 05/24/2018 ZOIE SWIFT MD Ot M48.02 SPINAL STENOSIS, CERVICAL REGION 05/24/2018 ZOIE SWIFT MD Ot M50.322 OTHER CERVICAL DISC DEGENERATION AT C5-C 05/24/2018 ABHINAV MARTINEZ, KIAN Jack Ot Z01.818 ENCOUNTER FOR OTHER PREPROCEDURAL EXAMIN 05/25/2018 MARIE LUNA DO Ot 440.20 ATHEROSCLEROSIS [place] ARTERIES EXTREMIT 05/25/2018 MARIE LUNA DO Ot V81.5 SCREEN FOR NEPHROPATHY 05/25/2018 MARIE LUNA DO Ot 401.9 HYPERTENSION NOS 05/25/2018 MARIE LUNA DO, Ot 786.09 RESPIRATORY ABNORM NEC 05/25/2018 MARIE LUNA DO, Ot 786.09 RESPIRATORY ABNORM NEC 05/25/2018 MARIE LUNA DO, Ot V72.83 EXAM PRE-OPERATIVE NEC 05/25/2018 ISHMAEL MARTINEZ, JORGE Scott Ot 250.80 DIAB W OTH SPEC MANIFEST, TYPE II OR UNS 05/25/2018 JORGE QUIÑONES MD Ot 707.15 ULCER OF OTHER PART OF FOOT 05/25/2018 JORGE QUIÑONES MD Ot 250.80 DIAB W OTH SPEC MANIFEST, TYPE II OR UNS 05/25/2018 JORGE QUIÑONES MD Ot 707.15 ULCER OF OTHER PART OF FOOT 05/25/2018 MARIE LUNA DO, Ot K43.9 VENTRAL HERNIA WITHOUT OBSTRUCTION OR GA 05/25/2018 MARIE LUNA DO, Ot N20.0 CALCULUS OF KIDNEY 05/25/2018 HARRISON BOYKIN MD Ot N20.0 CALCULUS OF KIDNEY 05/25/2018 MARIE LUNA DO, Ot Z12.31 ENCNTR SCREEN MAMMOGRAM FOR MALIGNANT NE 05/25/2018 MARIE LUNA DO, Ot J18.9 PNEUMONIA, UNSPECIFIED ORGANISM 05/25/2018 MARIE LUNA DO Ot R09.02 HYPOXEMIA 05/25/2018 MARIE LUNA DO, Ot M47.817 SPONDYLS W/O MYELOPATHY OR RADICULOPATHY 05/25/2018 MARIE LUNA DO, Ot M48.07 SPINAL STENOSIS, LUMBOSACRAL REGION 05/25/2018 MARIE LUNA DO, Ot M51.27 OTHER INTERVERTEBRAL DISC DISPLACEMENT, 05/25/2018 MARIE LUNA DO, Ot 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 DISC DEGENERATION, 05/25/2018 MARIE LUNA DO, Ot T14.90XA INJURY, UNSPECIFIED, INITIAL ENCOUNTER 05/25/2018 MARIE LUNA DO, Ot Z98.890 OTHER SPECIFIED POSTPROCEDURAL STATES 05/25/2018 MARIE LUNA DO, Ot E87.8 OTH DISORDERS OF ELECTROLYTE AND FLUID B 05/25/2018 MARIE LUNA DO, Ot G93.9 DISORDER OF BRAIN, UNSPECIFIED 05/25/2018 MARIE LUNA DO Ot R25.1 TREMOR, UNSPECIFIED 05/25/2018 MARIE LUNA DO Ot Z86.73 PRSNL HX OF TIA (TIA), AND CEREB INFRC W 05/25/2018 ZOIE SWIFT MD, Ot M48.02 SPINAL STENOSIS, CERVICAL REGION 05/25/2018 ZOIE SWIFT MD Ot M50.223 OTHER CERVICAL DISC DISPLACEMENT AT C6-C 05/25/2018 ZOIE SWIFT MD Ot M50.30 OTHER CERVICAL DISC DEGENERATION, UNSP C 05/25/2018 ZOIE SWIFT MD Ot M99.71 CONN TISS AND DISC STENOSIS OF INTVRT FO 05/25/2018 ZOIE SWIFT MD Ot R27.0 ATAXIA, UNSPECIFIED 05/25/2018 ZOIE SWIFT MD, Ot M47.812 SPONDYLOSIS W/O MYELOPATHY OR RADICULOPA 05/25/2018 ZOIE SWIFT MD, Ot M48.02 SPINAL STENOSIS, CERVICAL REGION 05/25/2018 ZOIE SWIFT MD Ot M50.322 OTHER CERVICAL DISC DEGENERATION AT C5-C 05/25/2018 KIAN LA MD Ot E11.36 TYPE 2 DIABETES MELLITUS WITH DIABETIC C 05/25/2018 KIAN LA MD, Ot E66.01 MORBID (SEVERE) OBESITY DUE TO EXCESS CA 05/25/2018 KIAN LA MD, Ot E78 .5 HYPERLIPIDEMIA, UNSPECIFIED 05/25/2018 KIAN LA MD, Ot F41 .9 ANXIETY DISORDER, UNSPECIFIED 05/25/2018 KIAN LA MD, Ot H26 .9 UNSPECIFIED CATARACT 05/25/2018 KIAN LA MD, Ot I10 ESSENTIAL (PRIMARY) HYPERTENSION 05/25/2018 KIAN LA MD, Ot Z68.42 BODY MASS INDEX (BMI) 45.0-49.9, ADULT 05/25/2018 KIAN LA MD, Ot Z79 .4 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 05/25/2018 KIAN LA MD, Ot Z79.82 [facility]PC (CURRENT) USE OF ASPIRIN 05/25/2018 KIAN LA MD, Ot Z79.899 OTHER PEN AND PENCIL REPAIRER (CURRENT) DRUG THERAPY 05/25/2018 KIAN LA MD, Ot Z86.73 PRSNL HX OF TIA (TIA), AND CEREB INFRC W 05/26/2018 KIAN LA MD, Ot E11 .9 TYPE 2 DIABETES MELLITUS WITHOUT COMPLIC 05/26/2018 KIAN LA MD, Ot E66.01 MORBID (SEVERE) OBESITY DUE TO EXCESS CA 05/26/2018 KIAN LA MD Ot E78 .5 HYPERLIPIDEMIA, UNSPECIFIED 05/26/2018 KIAN LA MD, Ot F41 .9 ANXIETY DISORDER, UNSPECIFIED 05/26/2018 KIAN LA MD Ot H26 .9 UNSPECIFIED CATARACT 05/26/2018 KIAN LA MD Ot I10 ESSENTIAL (PRIMARY) HYPERTENSION 05/26/2018 KIAN LA MD, Ot Z68.42 BODY MASS INDEX (BMI) 45.0-49.9, ADULT 05/26/2018 KIAN LA MD, Ot Z79 .4 [facility] (CURRENT) USE OF INSULIN 05/26/2018 KIAN LA MD, Ot 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 05/26/2018 KIAN LA MD, Ot Z79.899 OTHER PEN AND PENCIL REPAIRER (CURRENT) DRUG THERAPY 05/26/2018 KIAN LA MD, Ot Z86.73 PRSNL HX OF TIA (TIA), AND CEREB INFRC W 05/26/2018 KIAN LA MD, Ot E11.36 TYPE 2 DIABETES MELLITUS WITH DIABETIC C 05/26/2018 KIAN LA MD, Ot E66.01 MORBID (SEVERE) OBESITY DUE TO EXCESS CA 05/26/2018 KIAN LA MD, Ot E78 .5 HYPERLIPIDEMIA, UNSPECIFIED 05/26/2018 KIAN LA MD, Ot F41 .9 ANXIETY DISORDER, UNSPECIFIED 05/26/2018 KIAN LA MD Ot H26 .9 UNSPECIFIED CATARACT 05/26/2018 KIAN LA MD Ot I10 ESSENTIAL (PRIMARY) HYPERTENSION 05/26/2018 KIAN LA MD Ot Z68.42 BODY MASS INDEX (BMI) 45.0-49.9, ADULT 05/26/2018 KIAN LA MD, Ot Z79 .4 [facility] (CURRENT) USE OF INSULIN 05/26/2018 KIAN LA MD, Ot 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 05/26/2018 KIAN LA MD, Ot Z79.899 OTHER [facility] (CURRENT) DRUG THERAPY 05/26/2018 KIAN LA MD, Ot Z86.73 PRSNL HX OF TIA (TIA), AND CEREB INFRC W 05/30/2018 KIAN LA MD, Ot Z01.818 ENCOUNTER FOR OTHER PREPROCEDURAL EXAMIN 06/08/2018 KIAN LA MD, Ot Z01.818 ENCOUNTER FOR OTHER PREPROCEDURAL EXAMIN 06/09/2018 KIAN LA MD, Ot Z01.818 ENCOUNTER FOR OTHER PREPROCEDURAL EXAMIN 06/10/2018 KIAN LA MD Ot E11 .9 TYPE 2 DIABETES MELLITUS WITHOUT COMPLIC 06/10/2018 KIAN LA MD Ot E66.01 MORBID (SEVERE) OBESITY DUE TO EXCESS CA 06/10/2018 KIAN LA MD, Ot H25.12 AGE-RELATED NUCLEAR CATARACT, LEFT EYE 06/10/2018 KIAN LA MD Ot I10 ESSENTIAL (PRIMARY) HYPERTENSION 06/10/2018 KIAN LA MD Ot I63 .9 CEREBRAL INFARCTION, UNSPECIFIED 06/10/2018 KIAN LA MD Ot Z68.42 BODY MASS INDEX (BMI) 45.0-49.9, ADULT 06/10/2018 KIAN LA MD Ot Z79 .4 [facility] (CURRENT) USE OF INSULIN 06/10/2018 KIAN LA MD, Ot Z79.82 [facility] (CURRENT) USE OF ASPIRIN 06/10/2018 KIAN LA MD, Ot Z87.891 PERSONAL HISTORY OF NICOTINE DEPENDENCE 08/03/2018 MARIE LUNA DO Ot 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 08/03/2018 MARIE LUNA DO Ot 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 08/03/2018 MARIE LUNA DO Ot 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 08/03/2018 MARIE LUNA DO, Ot R22.31 LOCALIZED SWELLING, MASS AND LUMP, RIGHT 08/08/2018 MARIE LUNA DO, Ot R22.31 LOCALIZED SWELLING, MASS AND LUMP, RIGHT 09/08/2018 MARIE LUNA DO Ot 440.20 ATHEROSCLEROSIS [place] ARTERIES EXTREMIT 09/08/2018 MARIE LUNA DO Ot V81.5 SCREEN FOR NEPHROPATHY 09/08/2018 MARIE LUNA DO Ot 401.9 HYPERTENSION NOS 09/08/2018 MARIE LUNA DO, Ot 786.09 RESPIRATORY ABNORM NEC 09/08/2018 MARIE LUNA DO Ot 786.09 RESPIRATORY ABNORM NEC 09/08/2018 MARIE LUNA DO, Ot V72.83 EXAM PRE-OPERATIVE NEC 09/08/2018 ISHMAEL MARTINEZ, JORGE Scott Ot 250.80 DIAB W OTH SPEC MANIFEST, TYPE II OR UNS 09/08/2018 JORGE QUIÑONES MD Ot 707.15 ULCER OF OTHER PART OF FOOT 09/08/2018 JORGE QUIÑONES MD Ot 250.80 DIAB W OTH SPEC MANIFEST, TYPE II OR UNS 09/08/2018 JORGE QUIÑONES MD Ot 707.15 ULCER OF OTHER PART OF FOOT 09/08/2018 MARIE LUNA DO Ot K43.9 VENTRAL HERNIA WITHOUT OBSTRUCTION OR GA 09/08/2018 MARIE LUNA DO, Ot N20.0 CALCULUS OF KIDNEY 09/08/2018 LUCRETIA MARTINEZ, HARRISON Rueda Ot N20.0 CALCULUS OF KIDNEY 09/08/2018 MARIE LUNA DO Ot Z12.31 ENCNTR SCREEN MAMMOGRAM FOR MALIGNANT NE 09/08/2018 MARIE LUNA DO, Ot J18.9 PNEUMONIA, UNSPECIFIED ORGANISM 09/08/2018 MARIE LUNA DO Ot R09.02 HYPOXEMIA 09/08/2018 MARIE LUNA DO, Ot M47.817 SPONDYLS W/O MYELOPATHY OR RADICULOPATHY 09/08/2018 MARIE LUNA DO Ot M48.07 SPINAL STENOSIS, LUMBOSACRAL REGION 09/08/2018 MARIE LUNA DO Ot M51.27 OTHER INTERVERTEBRAL DISC DISPLACEMENT, 09/08/2018 MARIE LUNA DO, Ot 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 DISC DEGENERATION, 09/08/2018 MARIE LUNA DO Ot T14.90XA INJURY, UNSPECIFIED, INITIAL ENCOUNTER 09/08/2018 MARIE LUNA DO, Ot Z98.890 OTHER SPECIFIED POSTPROCEDURAL STATES 09/08/2018 MARIE LUNA DO Ot E87.8 OTH DISORDERS OF ELECTROLYTE AND FLUID B 09/08/2018 MARIE LUNA DO Ot G93.9 DISORDER OF BRAIN, UNSPECIFIED 09/08/2018 MARIE LUNA DO Ot R25.1 TREMOR, UNSPECIFIED 09/08/2018 MARIE LUNA DO, Ot Z86.73 PRSNL HX OF TIA (TIA), AND CEREB INFRC W 09/08/2018 ZOIE SWIFT MD, Ot M48.02 SPINAL STENOSIS, CERVICAL REGION 09/08/2018 ZOIE SWIFT MD, Ot M50.223 OTHER CERVICAL DISC DISPLACEMENT AT C6-C 09/08/2018 ZOIE SWIFT MD, Ot M50.30 OTHER CERVICAL DISC DEGENERATION, UNSP C 09/08/2018 ZOIE SWIFT MD, Ot M99.71 CONN TISS AND DISC STENOSIS OF INTVRT FO 09/08/2018 ZOIE SWIFT MD, Ot R27.0 ATAXIA, UNSPECIFIED 09/08/2018 ZOIE SWIFT MD, Ot M47.812 SPONDYLOSIS W/O MYELOPATHY OR RADICULOPA 09/08/2018 ZOIE SWIFT MD, Ot M48.02 SPINAL STENOSIS, CERVICAL REGION 09/08/2018 ZOIE SWIFT MD, Ot M50.322 OTHER CERVICAL DISC DEGENERATION AT C5-C 09/08/2018 MARIE LUNA DO, Ot I89.0 LYMPHEDEMA, NOT ELSEWHERE CLASSIFIED 09/08/2018 JORGE QUIÑONES MD, Ot L97.522 NON-PRS CHRONIC ULCER OTH PRT LEFT FOOT 09/12/2018 JORGE QUIÑONES MD Ot E11.42 TYPE 2 DIABETES MELLITUS WITH DIABETIC P 09/12/2018 JORGE QUIÑONES MD, Ot E11.621 TYPE 2 DIABETES MELLITUS WITH FOOT ULCER 09/12/2018 JORGE QUIÑONES MD Ot E66.01 MORBID (SEVERE) OBESITY DUE TO EXCESS CA 09/12/2018 JORGE QUIÑONES MD, Ot I89 .0 LYMPHEDEMA, NOT ELSEWHERE CLASSIFIED 09/12/2018 JORGE QUIÑONES MD Ot 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 09/12/2018 JORGE QUIÑONES MD, Ot L97.522 NON-PRS CHRONIC ULCER OTH PRT LEFT FOOT 09/13/2018 MARIE LUNA DO Ot I89.0 LYMPHEDEMA, NOT ELSEWHERE CLASSIFIED 09/14/2018 JORGE QUIÑONES MD Ot 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 09/15/2018 JORGE QUIÑONES MD Ot E11.42 TYPE 2 DIABETES MELLITUS WITH DIABETIC P 09/15/2018 JORGE QUIÑONES MD Ot E11.621 TYPE 2 DIABETES MELLITUS WITH FOOT ULCER 09/15/2018 JORGE QUIÑONES MD Ot E66.01 MORBID (SEVERE) OBESITY DUE TO EXCESS CA 09/15/2018 JORGE QUIÑONES MD Ot I89 .0 LYMPHEDEMA, NOT ELSEWHERE CLASSIFIED 09/15/2018 JORGE QUIÑONES MD Ot 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 09/15/2018 JORGE QUIÑONES MD Ot L97.522 NON-PRS CHRONIC ULCER OTH PRT LEFT FOOT 09/15/2018 JORGE QUIÑONES MD Ot M14.672 CHARCOT'S JOINT, LEFT ANKLE AND FOOT 09/15/2018 JORGE QUIÑONES MD Ot Z68.41 BODY MASS INDEX (BMI) 40.0-44.9, ADULT 09/16/2018 JORGE QUIÑONES MD Ot E11.42 TYPE 2 DIABETES MELLITUS WITH DIABETIC P 09/16/2018 JORGE QUIÑONES MD Ot E11.621 TYPE 2 DIABETES MELLITUS WITH FOOT ULCER 09/16/2018 JORGE QUIÑONES MD Ot E66.01 MORBID (SEVERE) OBESITY DUE TO EXCESS CA 09/16/2018 JORGE QUIÑONES MD Ot I89 .0 LYMPHEDEMA, NOT ELSEWHERE CLASSIFIED 09/16/2018 JORGE QUIÑONES MD, Ot 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 09/16/2018 JORGE QUIÑONES MD Ot L97.522 NON-PRS CHRONIC ULCER OTH PRT LEFT FOOT 09/16/2018 JORGE QUIÑONES MD Ot Z68.41 BODY MASS INDEX (BMI) 40.0-44.9, ADULT 09/29/2018 JORGE QUIÑONES MD, Ot E11.42 TYPE 2 DIABETES MELLITUS WITH DIABETIC P 09/29/2018 JORGE QUIÑONES MD, Ot E11.621 TYPE 2 DIABETES MELLITUS WITH FOOT ULCER 09/29/2018 JORGE QUIÑONES MD, Ot E66.01 MORBID (SEVERE) OBESITY DUE TO EXCESS CA 09/29/2018 JORGE QUIÑONES MD, Ot I89 .0 LYMPHEDEMA, NOT ELSEWHERE CLASSIFIED 09/29/2018 JORGE QUIÑONES MD, Ot 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 09/29/2018 JORGE QUIÑONES MD, Ot L97.522 NON-PRS CHRONIC ULCER OTH PRT LEFT FOOT 09/30/2018 JORGE QUIÑONES MD, Ot E11.42 TYPE 2 DIABETES MELLITUS WITH DIABETIC P 09/30/2018 JORGE QUIÑONES MD, Ot E11.621 TYPE 2 DIABETES MELLITUS WITH FOOT ULCER 09/30/2018 JORGE QUIÑONES MD, Ot E66.01 MORBID (SEVERE) OBESITY DUE TO EXCESS CA 09/30/2018 JORGE QUIÑONES MD, Ot 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 09/30/2018 JORGE QUIÑONES MD, Ot M14.672 CHARCOT'S JOINT, LEFT ANKLE AND FOOT 10/04/2018 JORGE QUIÑONES MD, Ot E11.42 TYPE 2 DIABETES MELLITUS WITH DIABETIC P 10/04/2018 JORGE QUIÑONES MD, Ot E11.621 TYPE 2 DIABETES MELLITUS WITH FOOT ULCER 10/04/2018 JORGE QUIÑONES MD, Ot E66.01 MORBID (SEVERE) OBESITY DUE TO EXCESS CA 10/04/2018 JORGE QUIÑONES MD, Ot I89 .0 LYMPHEDEMA, NOT ELSEWHERE CLASSIFIED 10/04/2018 JORGE QUIÑONES MD, Ot 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 10/04/2018 JORGE QUIÑONES MD, Ot L97.522 NON-PRS CHRONIC ULCER OTH PRT LEFT FOOT 10/04/2018 JORGE QUIÑONES MD, Ot Z68.41 BODY MASS INDEX (BMI) 40.0-44.9, ADULT 10/04/2018 JORGE QUIÑONES MD, Ot E11.42 TYPE 2 DIABETES MELLITUS WITH DIABETIC P 10/04/2018 JORGE QUIÑONES MD, Ot E11.621 TYPE 2 DIABETES MELLITUS WITH FOOT ULCER 10/04/2018 JORGE QUIÑONES MD, Ot E66.01 MORBID (SEVERE) OBESITY DUE TO EXCESS CA 10/04/2018 JORGE QUIÑONES MD, Ot I89 .0 LYMPHEDEMA, NOT ELSEWHERE CLASSIFIED 10/04/2018 JORGE QUIÑONES MD, Ot 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 10/04/2018 JORGE QUIÑONES MD, Ot L97.522 NON-PRS CHRONIC ULCER OTH PRT LEFT FOOT 10/04/2018 JORGE QUIÑONES MD, Ot M14.672 CHARCOT'S JOINT, LEFT ANKLE AND FOOT 10/04/2018 JORGE QUIÑONES MD, Ot Z68.41 BODY MASS INDEX (BMI) 40.0-44.9, ADULT 10/04/2018 JORGE QUIÑONES MD, Ot E11.42 TYPE 2 DIABETES MELLITUS WITH DIABETIC P 10/04/2018 JORGE QUIÑONES MD, Ot E11.621 TYPE 2 DIABETES MELLITUS WITH FOOT ULCER 10/04/2018 JORGE QUIÑONES MD, Ot E66.01 MORBID (SEVERE) OBESITY DUE TO EXCESS CA 10/04/2018 JORGE QUIÑONES MD, Ot I89 .0 LYMPHEDEMA, NOT ELSEWHERE CLASSIFIED 10/04/2018 JORGE QUIÑONES MD, Ot 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 10/04/2018 JORGE QUIÑONES MD, Ot L97.522 NON-PRS CHRONIC ULCER OTH PRT LEFT FOOT 10/04/2018 JORGE QUIÑONES MD, Ot M14.672 CHARCOT'S JOINT, LEFT ANKLE AND FOOT 10/04/2018 JORGE QUIÑONES MD, Ot Z68.41 BODY MASS INDEX (BMI) 40.0-44.9, ADULT 10/07/2018 JORGE QUIÑONES MD, Ot E11.42 TYPE 2 DIABETES MELLITUS WITH DIABETIC P 10/07/2018 JORGE QUIÑONES MD, Ot E11.621 TYPE 2 DIABETES MELLITUS WITH FOOT ULCER 10/07/2018 JORGE QUIÑONES MD, Ot E66.01 MORBID (SEVERE) OBESITY DUE TO EXCESS CA 10/07/2018 JORGE QUIÑONES MD, Ot 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 10/07/2018 JORGE QUIÑONES MD, Ot M14.672 CHARCOT'S JOINT, LEFT ANKLE AND FOOT 10/07/2018 JORGE QUIÑONES MD, Ot Z68.41 BODY MASS INDEX (BMI) 40.0-44.9, ADULT 10/12/2018 JORGE QUIÑONES MD, Ot E11.42 TYPE 2 DIABETES MELLITUS WITH DIABETIC P 10/12/2018 JORGE QUIÑONES MD, Ot E11.621 TYPE 2 DIABETES MELLITUS WITH FOOT ULCER 10/12/2018 JORGE QUIÑONES MD, Ot E66.01 MORBID (SEVERE) OBESITY DUE TO EXCESS CA 10/12/2018 JORGE QUIÑONES MD, Ot 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 10/12/2018 JORGE QUIÑONES MD, Ot L97.522 NON-PRS CHRONIC ULCER OTH PRT LEFT FOOT 10/12/2018 JORGE QUIÑONES MD, Ot M14.672 CHARCOT'S JOINT, LEFT ANKLE AND FOOT 10/12/2018 JORGE QUIÑONES MD, Ot Z68.41 BODY MASS INDEX (BMI) 40.0-44.9, ADULT 10/13/2018 JORGE QUIÑONES MD, Ot E11.42 TYPE 2 DIABETES MELLITUS WITH DIABETIC P 10/13/2018 JORGE QUIÑONES MD, Ot E11.621 TYPE 2 DIABETES MELLITUS WITH FOOT ULCER 10/13/2018 JORGE QUIÑONES MD, Ot E66.01 MORBID (SEVERE) OBESITY DUE TO EXCESS CA 10/13/2018 JORGE QUIÑONES MD, Ot 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 10/13/2018 JORGE QUIÑONES MD, Ot M14.672 CHARCOT'S JOINT, LEFT ANKLE AND FOOT 10/13/2018 JORGE QUIÑONES MD, Ot Z68.41 BODY MASS INDEX (BMI) 40.0-44.9, ADULT 10/19/2018 JORGE QUIÑONES MD, Ot E11.42 TYPE 2 DIABETES MELLITUS WITH DIABETIC P 10/19/2018 JORGE QUIÑONES MD, Ot E11.621 TYPE 2 DIABETES MELLITUS WITH FOOT ULCER 10/19/2018 JORGE QUIÑONES MD, Ot E66.01 MORBID (SEVERE) OBESITY DUE TO EXCESS CA 10/19/2018 JORGE QUIÑONES MD, Ot 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 10/19/2018 JORGE QUIÑONES MD, Ot M14.672 CHARCOT'S JOINT, LEFT ANKLE AND FOOT 10/26/2018 JORGE QUIÑONES MD, Ot E11.42 TYPE 2 DIABETES MELLITUS WITH DIABETIC P 10/26/2018 JORGE QUIÑONES MD, Ot E11.621 TYPE 2 DIABETES MELLITUS WITH FOOT ULCER 10/26/2018 JORGE QUIÑONES MD, Ot E66.01 MORBID (SEVERE) OBESITY DUE TO EXCESS CA 10/26/2018 JORGE QUIÑONES MD, Ot 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 10/26/2018 JORGE QUIÑONES MD, Ot M14.672 CHARCOT'S JOINT, LEFT ANKLE AND FOOT 10/26/2018 JORGE QUIÑONES MD, Ot Z68.41 BODY MASS INDEX (BMI) 40.0-44.9, ADULT 10/27/2018 JORGE QUIÑONES MD, Ot E11.42 TYPE 2 DIABETES MELLITUS WITH DIABETIC P 10/27/2018 JORGE QUIÑONES MD, Ot E11.621 TYPE 2 DIABETES MELLITUS WITH FOOT ULCER 10/27/2018 JORGE QUIÑONES MD, Ot E66.01 MORBID (SEVERE) OBESITY DUE TO EXCESS CA 10/27/2018 JORGE QUIÑONES MD, Ot 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 10/27/2018 JORGE QUIÑONES MD, Ot M14.672 CHARCOT'S JOINT, LEFT ANKLE AND FOOT 10/27/2018 JORGE QUIÑONES MD, Ot Z68.41 BODY MASS INDEX (BMI) 40.0-44.9, ADULT 10/28/2018 JORGE QUIÑONES MD, Ot E11.42 TYPE 2 DIABETES MELLITUS WITH DIABETIC P 10/28/2018 JORGE QUIÑONES MD, Ot E11.621 TYPE 2 DIABETES MELLITUS WITH FOOT ULCER 10/28/2018 JORGE QUIÑONES MD, Ot E66.01 MORBID (SEVERE) OBESITY DUE TO EXCESS CA 10/28/2018 JORGE QUIÑONES MD, Ot 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 10/28/2018 JORGE QUIÑONES MD, Ot M14.672 CHARCOT'S JOINT, LEFT ANKLE AND FOOT 10/28/2018 JORGE QUIÑONES MD, Ot Z68.41 BODY MASS INDEX (BMI) 40.0-44.9, ADULT 11/01/2018 JORGE QUIÑONES MD, Ot E11.42 TYPE 2 DIABETES MELLITUS WITH DIABETIC P 11/01/2018 JORGE QUIÑONES MD, Ot E11.621 TYPE 2 DIABETES MELLITUS WITH FOOT ULCER 11/01/2018 JORGE QUIÑONES MD, Ot E66.01 MORBID (SEVERE) OBESITY DUE TO EXCESS CA 11/01/2018 JORGE QUIÑONES MD, Ot 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 11/01/2018 JORGE QUIÑONES MD, Ot M14.672 CHARCOT'S JOINT, LEFT ANKLE AND FOOT 11/01/2018 JORGE QUIÑONES MD, Ot Z68.41 BODY MASS INDEX (BMI) 40.0-44.9, ADULT 11/02/2018 JORGE QUIÑONES MD, Ot E11.42 TYPE 2 DIABETES MELLITUS WITH DIABETIC P 11/02/2018 JORGE QUIÑONES MD, Ot E11.621 TYPE 2 DIABETES MELLITUS WITH FOOT ULCER 11/02/2018 JORGE QUIÑONES MD, Ot E66.01 MORBID (SEVERE) OBESITY DUE TO EXCESS CA 11/02/2018 JORGE QUIÑONES MD, Ot 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 11/02/2018 JORGE QUIÑONES MD, Ot M14.672 CHARCOT'S JOINT, LEFT ANKLE AND FOOT 11/02/2018 JORGE QUIÑONES MD, Ot Z68.41 BODY MASS INDEX (BMI) 40.0-44.9, ADULT 11/10/2018 JORGE QUIÑONES MD, Ot E11.42 TYPE 2 DIABETES MELLITUS WITH DIABETIC P 11/10/2018 JORGE QUIÑONES MD Ot 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 11/10/2018 JORGE QUIÑONES MD, Ot E11.621 TYPE 2 DIABETES MELLITUS WITH FOOT ULCER 11/10/2018 JORGE QUIÑONES MD, Ot E66.01 MORBID (SEVERE) OBESITY DUE TO EXCESS CA 11/10/2018 JORGE QUIÑONES MD, Ot 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 11/10/2018 JORGE QUIÑONES MD, Ot Z68.41 BODY MASS INDEX (BMI) 40.0-44.9, ADULT 11/14/2018 JORGE QUIÑONES MD, Ot E11.42 TYPE 2 DIABETES MELLITUS WITH DIABETIC P 11/14/2018 JORGE QUIÑONES MD, Ot E11.621 TYPE 2 DIABETES MELLITUS WITH FOOT ULCER 11/14/2018 JORGE QUIÑONES MD, Ot E66.01 MORBID (SEVERE) OBESITY DUE TO EXCESS CA 11/14/2018 JORGE QUIÑONES MD, Ot 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 11/14/2018 JORGE QUIÑONES MD, Ot M14.672 CHARCOT'S JOINT, LEFT ANKLE AND FOOT 11/14/2018 JORGE QUIÑONES MD, Ot Z68.41 BODY MASS INDEX (BMI) 40.0-44.9, ADULT 11/16/2018 JORGE QUIÑONES MD, Ot E11.42 TYPE 2 DIABETES MELLITUS WITH DIABETIC P 11/16/2018 JORGE QUIÑONES MD, Ot E11.621 TYPE 2 DIABETES MELLITUS WITH FOOT ULCER 11/16/2018 JORGE QUIÑONES MD, Ot E66.01 MORBID (SEVERE) OBESITY DUE TO EXCESS CA 11/16/2018 JORGE QUIÑONES MD, Ot 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 11/16/2018 JORGE QUIÑONES MD, Ot M14.672 CHARCOT'S JOINT, LEFT ANKLE AND FOOT 11/18/2018 JORGE QUIÑONES MD, Ot E11.42 TYPE 2 DIABETES MELLITUS WITH DIABETIC P 11/18/2018 JORGE QUIÑONES MD, Ot E11.621 TYPE 2 DIABETES MELLITUS WITH FOOT ULCER 11/18/2018 JORGE QUIÑONES MD, Ot E66.01 MORBID (SEVERE) OBESITY DUE TO EXCESS CA 11/18/2018 JORGE QUIÑONES MD, Ot 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 11/18/2018 JORGE QUIÑONES MD, Ot M14.672 CHARCOT'S JOINT, LEFT ANKLE AND FOOT 11/18/2018 JORGE QUIÑONES MD, Ot Z68.41 BODY MASS INDEX (BMI) 40.0-44.9, ADULT 11/29/2018 JORGE QUIÑONES MD, Ot E11.42 TYPE 2 DIABETES MELLITUS WITH DIABETIC P 11/29/2018 JORGE QUIÑONES MD, Ot 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 11/29/2018 JORGE QUIÑONES MD, Ot E11.621 TYPE 2 DIABETES MELLITUS WITH FOOT ULCER 11/29/2018 JORGE QUIÑONES MD, Ot E66.01 MORBID (SEVERE) OBESITY DUE TO EXCESS CA 11/29/2018 JORGE QUIÑONES MD, Ot 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 11/29/2018 JORGE QUIÑONES MD, Ot Z68.41 BODY MASS INDEX (BMI) 40.0-44.9, ADULT 12/13/2018 JORGE QUIÑONES MD, Ot E11.42 TYPE 2 DIABETES MELLITUS WITH DIABETIC P 12/13/2018 JORGE QUIÑONES MD, Ot E11.621 TYPE 2 DIABETES MELLITUS WITH FOOT ULCER 12/13/2018 JORGE QUIÑONES MD, Ot E66.01 MORBID (SEVERE) OBESITY DUE TO EXCESS CA 12/13/2018 JORGE QUIÑONES MD, Ot 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 12/13/2018 JORGE QUIÑONES MD, Ot M14.672 CHARCOT'S JOINT, LEFT ANKLE AND FOOT 12/16/2018 JORGE QUIÑONES MD, Ot E11.42 TYPE 2 DIABETES MELLITUS WITH DIABETIC P 12/16/2018 JORGE QUIÑONES MD, Ot E11.621 TYPE 2 DIABETES MELLITUS WITH FOOT ULCER 12/16/2018 JORGE QUIÑONES MD, Ot E66.01 MORBID (SEVERE) OBESITY DUE TO EXCESS CA 12/16/2018 JORGE QUIÑONES MD, Ot 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 12/16/2018 JORGE QUIÑONES MD, Ot M14.672 CHARCOT'S JOINT, LEFT ANKLE AND FOOT 01/16/2019 JORGE QUIÑONES MD, Ot E11.42 TYPE 2 DIABETES MELLITUS WITH DIABETIC P 01/16/2019 JORGE QUIÑONES MD, Ot 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 01/16/2019 JORGE QUIÑONES MD, Ot E11.621 TYPE 2 DIABETES MELLITUS WITH FOOT ULCER 01/16/2019 JORGE QUIÑONES MD Ot 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 01/19/2019 JORGE QUIÑONES MD, Ot E11.42 TYPE 2 DIABETES MELLITUS WITH DIABETIC P 01/19/2019 JORGE QUIÑONES MD, Ot 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 01/19/2019 JORGE QUIÑONES MD, Ot E11.621 TYPE 2 DIABETES MELLITUS WITH FOOT ULCER 01/19/2019 JORGE QUIÑONES MD, Ot L97.421 NON-PRS CHR ULCER OF LEFT HEEL AND MIDFT 02/02/2019 JORGE QUIÑONES MD, Ot E11.42 TYPE 2 DIABETES MELLITUS WITH DIABETIC P 02/02/2019 JORGE QUIÑONES MD, Ot 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 02/02/2019 JORGE QUIÑONES MD, Ot E11.621 TYPE 2 DIABETES MELLITUS WITH FOOT ULCER 02/02/2019 JORGE QUIÑONES MD Ot 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 02/03/2019 JORGE QUIÑONES MD Ot E11.42 TYPE 2 DIABETES MELLITUS WITH DIABETIC P 02/03/2019 JORGE QUIÑONES MD, Ot 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 02/03/2019 JORGE QUIÑONES MD, Ot E11.621 TYPE 2 DIABETES MELLITUS WITH FOOT ULCER 02/03/2019 JORGE QUIÑONES MD Ot L97.421 NON-PRS CHR ULCER OF LEFT HEEL AND MIDFT 02/03/2019 JORGE QUIÑONES MD, Ot 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 02/07/2019 JORGE QUIÑONES MD, Ot E11.42 TYPE 2 DIABETES MELLITUS WITH DIABETIC P 02/07/2019 JORGE QUIÑONES MD, Ot 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 02/07/2019 JORGE QUIÑONES MD, Ot E11.621 TYPE 2 DIABETES MELLITUS WITH FOOT ULCER 02/07/2019 JORGE QUIÑONES MD Ot L97.421 NON-PRS CHR ULCER OF LEFT HEEL AND MIDFT 02/09/2019 JORGE QUIÑONES MD Ot E11.42 TYPE 2 DIABETES MELLITUS WITH DIABETIC P 02/09/2019 JORGE QUIÑONES MD Ot 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 02/09/2019 JORGE QUIÑONES MD, Ot E11.621 TYPE 2 DIABETES MELLITUS WITH FOOT ULCER 02/09/2019 JORGE QUIÑONES MD Ot 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 02/21/2019 JORGE QUIÑONES MD Ot E11.42 TYPE 2 DIABETES MELLITUS WITH DIABETIC P 02/21/2019 JORGE QUIÑONES MD, Ot 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 02/21/2019 JORGE QUIÑONES MD Ot E11.621 TYPE 2 DIABETES MELLITUS WITH FOOT ULCER 02/21/2019 JORGE QUIÑONES MD Ot L97.421 NON-PRS CHR ULCER OF LEFT HEEL AND MIDFT 02/21/2019 JORGE QUIÑONES MD Ot 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 03/06/2019 JORGE QUIÑONES MD Ot E11.42 TYPE 2 DIABETES MELLITUS WITH DIABETIC P 03/06/2019 JORGE QUIÑONES MD Ot 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 03/06/2019 JORGE QUIÑONES MD, Ot E11.621 TYPE 2 DIABETES MELLITUS WITH FOOT ULCER 03/06/2019 JORGE QUIÑONES MD, Ot 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 04/10/2019 JORGE QUIÑONES MD, Ot E11.42 TYPE 2 DIABETES MELLITUS WITH DIABETIC P 04/10/2019 JORGE QUIÑONES MD, Ot E11.52 TYPE 2 DIABETES W DIABETIC PERIPHERAL AN 04/10/2019 JORGE QUIÑONES MD, Ot E11.621 TYPE 2 DIABETES MELLITUS WITH FOOT ULCER 04/10/2019 JORGE QUIÑONES MD, Ot E11.65 TYPE 2 DIABETES MELLITUS WITH HYPERGLYCE 04/10/2019 JORGE QUIÑONES MD, Ot E66.01 MORBID (SEVERE) OBESITY DUE TO EXCESS CA 04/10/2019 JORGE QUIÑONES MD, Ot I96 GANGRENE, NOT ELSEWHERE CLASSIFIED 04/10/2019 JORGE QUIÑONES MD, Ot 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 04/10/2019 JORGE QUIÑONES MD Ot M14.672 CHARCOT'S JOINT, LEFT ANKLE AND FOOT 04/11/2019 JORGE QUIÑONES MD, Ot E11.42 TYPE 2 DIABETES MELLITUS WITH DIABETIC P 04/11/2019 JORGE QUIÑONES MD, Ot E11.621 TYPE 2 DIABETES MELLITUS WITH FOOT ULCER 04/11/2019 JORGE QUIÑONES MD, Ot E11.65 TYPE 2 DIABETES MELLITUS WITH HYPERGLYCE 04/11/2019 JORGE QUIÑONES MD, Ot E66.01 MORBID (SEVERE) OBESITY DUE TO EXCESS CA 04/11/2019 JORGE QUIÑONES MD, Ot 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 04/11/2019 JORGE QUIÑONES MD, Ot M14.672 CHARCOT'S JOINT, LEFT ANKLE AND FOOT 04/14/2019 JORGE QUIÑONES MD, Ot A52.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) 04/14/2019 JORGE QUIÑONES MD, Ot E11.42 TYPE 2 DIABETES MELLITUS WITH DIABETIC P 04/14/2019 JORGE QUIÑONES MD, Ot E11.52 TYPE 2 DIABETES W DIABETIC PERIPHERAL AN 04/14/2019 JORGE QUIÑONES MD, Ot 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 04/14/2019 JORGE QUIÑONES MD, Ot E11.621 TYPE 2 DIABETES MELLITUS WITH FOOT ULCER 04/14/2019 JORGE QUIÑONES MD Ot E11.65 TYPE 2 DIABETES MELLITUS WITH HYPERGLYCE 04/14/2019 JORGE QUIÑONES MD Ot E66.01 MORBID (SEVERE) OBESITY DUE TO EXCESS CA 04/14/2019 JORGE QUIÑONES MD, Ot 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 04/14/2019 JORGE QUIÑONES MD, Ot 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 04/19/2019 JORGE QUIÑONES MD, Ot E11.621 TYPE 2 DIABETES MELLITUS WITH FOOT ULCER 04/19/2019 JORGE QUIÑONES MD, Ot E11.621 TYPE 2 DIABETES MELLITUS WITH FOOT ULCER 04/19/2019 CECILLE CONWAY DO Ot E11.51 TYPE 2 DIABETES W DIABETIC PERIPHERAL AN 04/19/2019 CECILLE CONWAY DO Ot E11.621 TYPE 2 DIABETES MELLITUS WITH FOOT ULCER 04/19/2019 CECILLE CONWAY DO Ot F41.9 ANXIETY DISORDER, UNSPECIFIED 04/19/2019 CECILLE CONWAY DO Ot I10 ESSENTIAL (PRIMARY) HYPERTENSION 04/19/2019 CECILLE CONWAY DO Ot 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 04/19/2019 CECILLE CONWAY DO Ot R42 DIZZINESS AND GIDDINESS 04/19/2019 CECILLE CONWAY DO Ot Z79.4 FPC (CURRENT) USE OF INSULIN 04/19/2019 CECILLE CONWAY DO Ot Z79.82 FPC (CURRENT) USE OF ASPIRIN 04/19/2019 CECILLE CONWAY DO Ot Z80.8 FAMILY HISTORY OF MALIGNANT NEOPLASM OF 04/19/2019 CECILLE CONWAY DO Ot Z82.49 FAMILY HX OF ISCHEM HEART DIS AND OTH DI 04/19/2019 CECILLE CONWAY DO Ot 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 04/19/2019 CECILLE CONWAY DO Ot Z86.012 PERSONAL HISTORY OF BENIGN CARCINOID NIRANJAN 04/19/2019 CECILLE CONWAY DO Ot Z86.73 PRSNL HX OF TIA (TIA), AND CEREB INFRC W 04/19/2019 CECILLE CONWAY DO Ot Z87.440 PERSONAL HISTORY OF URINARY (TRACT) INFE 04/19/2019 CECILLE CONWAY DO Ot Z87.891 PERSONAL HISTORY OF NICOTINE DEPENDENCE 04/19/2019 CECILLE CONWAY DO Ot Z88.8 ALLERGY STATUS TO OTH DRUG/MEDS/BIOL SUB 04/19/2019 CECILLE CONWAY DO Ot Z90.49 ACQUIRED ABSENCE OF OTHER SPECIFIED PART 04/19/2019 CECILLE CONWAY DO Ot Z90.710 ACQUIRED ABSENCE OF BOTH CERVIX AND UTER 04/19/2019 CECILLE CONWAY DO Ot Z98.84 BARIATRIC SURGERY STATUS 04/19/2019 CECILLE CONWAY DO Ot Z99.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 ON SUPPLEMENTAL OXYGEN 04/21/2019 JORGE QUIÑONES MD Ot E11.42 TYPE 2 DIABETES MELLITUS WITH DIABETIC P 04/21/2019 JORGE QUIÑONES MD, Ot E11.52 TYPE 2 DIABETES W DIABETIC PERIPHERAL AN 04/21/2019 JORGE QUIÑONES MD Ot E11.621 TYPE 2 DIABETES MELLITUS WITH FOOT ULCER 04/21/2019 JORGE QUIÑONES MD Ot E66.01 MORBID (SEVERE) OBESITY DUE TO EXCESS CA 04/21/2019 JORGE QUIÑONES MD Ot 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 04/21/2019 JORGE QUIÑONES MD Ot I96 GANGRENE, NOT ELSEWHERE CLASSIFIED 04/21/2019 JORGE QUIÑONES MD Ot 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 04/21/2019 JORGE QUIÑONES MD Ot M14.672 CHARCOT'S JOINT, LEFT ANKLE AND FOOT 04/21/2019 JORGE QUIÑONES MD Ot E11.621 TYPE 2 DIABETES MELLITUS WITH FOOT ULCER 04/21/2019 JORGE QUIÑONES MD Ot 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 04/24/2019 CECILLE CONWAY DO Ot E11.51 TYPE 2 DIABETES W DIABETIC PERIPHERAL AN 04/24/2019 CECILLE CONWAY DO Ot F41.9 ANXIETY DISORDER, UNSPECIFIED 04/24/2019 CECILLE CONWAY DO Ot I10 ESSENTIAL (PRIMARY) HYPERTENSION 04/24/2019 CECILLE CONWAY DO Ot R42 DIZZINESS AND GIDDINESS 04/24/2019 CECILLE CONWAY DO Ot Z79.4 FPC (CURRENT) USE OF INSULIN 04/24/2019 CECILLE CONWAY DO Ot Z79.82 FPC (CURRENT) USE OF ASPIRIN 04/24/2019 MAN [place] Ot Z80.8 FAMILY HISTORY OF MALIGNANT NEOPLASM OF 04/24/2019 MAN [place]AM[place] Ot Z82.49 FAMILY HX OF ISCHEM HEART DIS AND OTH DI 04/24/2019 MAN [place] Ot Z85.819 PRSNL HX OF MALIG NEOPLM OF [place]SP SITE LI 04/24/2019 MAN [place] Ot Z86.012 PERSONAL HISTORY OF BENIGN CARCINOID NIRANJAN 04/24/2019 MAN [place] Ot Z86.73 PRSNL HX OF TIA (TIA), AND CEREB INFRC W 04/24/2019 MAN CECILLE Ot Z87.440 PERSONAL HISTORY OF URINARY (TRACT) INFE 04/24/2019 MAN [place] Ot Z87.891 PERSONAL HISTORY OF NICOTINE DEPENDENCE 04/24/2019 MAN [place] Ot Z88.8 ALLERGY STATUS TO [facility] DRUG/MEDS/BIOL SUB 04/24/2019 MAN [place] Ot Z90.49 ACQUIRED ABSENCE OF OTHER SPECIFIED PART 04/24/2019 MAN [place] Ot Z90.710 ACQUIRED ABSENCE OF BOTH CERVIX AND UTER 04/24/2019 MAN CECILLE Ot Z98.84 BARIATRIC SURGERY STATUS 04/24/2019 MAN CECILLE ESCAMILLA Ot Z99.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 ON SUPPLEMENTAL OXYGEN 04/27/2019 JORGE QUIÑONES MD, Ot E11.42 TYPE 2 DIABETES MELLITUS WITH DIABETIC P 04/27/2019 JORGE QUIÑONES MD, Ot E11.52 TYPE 2 DIABETES W DIABETIC PERIPHERAL AN 04/27/2019 JORGE QUIÑONES MD, Ot 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 04/27/2019 JORGE QUIÑONES MD, Ot E11.621 TYPE 2 DIABETES MELLITUS WITH FOOT ULCER 04/27/2019 JORGE QUIÑONES MD, Ot E11.65 TYPE 2 DIABETES MELLITUS WITH HYPERGLYCE 04/27/2019 JORGE QUIÑONES MD, Ot E66.01 MORBID (SEVERE) OBESITY DUE TO EXCESS CA 04/27/2019 JORGE QUIÑONES MD, Ot 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 04/27/2019 JORGE QUIÑONES MD, Ot 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 04/27/2019 JORGE QUIÑONES MD Ot E11.42 TYPE 2 DIABETES MELLITUS WITH DIABETIC P 04/27/2019 JORGE QUIÑONES MD, Ot E11.621 TYPE 2 DIABETES MELLITUS WITH FOOT ULCER 04/27/2019 JORGE QUIÑONES MD Ot E11.65 TYPE 2 DIABETES MELLITUS WITH HYPERGLYCE 04/27/2019 JORGE QUIÑONES MD Ot E66.01 MORBID (SEVERE) OBESITY DUE TO EXCESS CA 04/27/2019 JORGE QUIÑONES MD, Ot 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 04/27/2019 JORGE QUIÑONES MD, Ot M14.672 CHARCOT'S JOINT, LEFT ANKLE AND FOOT 05/03/2019 CECILLE CONWAY DO Ot E11.51 TYPE 2 DIABETES W DIABETIC PERIPHERAL AN 05/03/2019 CECILLE CONWAY DO, Ot E11.621 TYPE 2 DIABETES MELLITUS WITH FOOT ULCER 05/03/2019 CECILLE CONAWY DO Ot F41.9 ANXIETY DISORDER, UNSPECIFIED 05/03/2019 CECILLE CONWAY DO Ot I10 ESSENTIAL (PRIMARY) HYPERTENSION 05/03/2019 CECILLE CONWAY DO Ot 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 05/03/2019 CECILLE CONWAY DO Ot R42 DIZZINESS AND GIDDINESS 05/03/2019 CECILLE CONWAY DO Ot Z79.4 FPC (CURRENT) USE OF INSULIN 05/03/2019 CECILLE CONWAY DO Ot 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 05/03/2019 CECILLE CONWAY DO Ot Z80.8 FAMILY HISTORY OF MALIGNANT NEOPLASM OF 05/03/2019 CECILLE CONWAY DO Ot Z82.49 FAMILY HX OF ISCHEM HEART DIS AND OTH DI 05/03/2019 CECILLE CONWAY DO Ot 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 05/03/2019 CECILLE CONWAY DO Ot Z86.012 PERSONAL HISTORY OF BENIGN CARCINOID NIRANJAN 05/03/2019 CECILLE CONWAY DO Ot Z86.73 PRSNL HX OF TIA (TIA), AND CEREB INFRC W 05/03/2019 CECILLE CONWAY DO Ot Z87.440 PERSONAL HISTORY OF URINARY (TRACT) INFE 05/03/2019 CECILLE CONWAY DO Ot Z87.891 PERSONAL HISTORY OF NICOTINE DEPENDENCE 05/03/2019 CECILLE CONWAY DO Ot Z88.8 ALLERGY STATUS TO OTH DRUG/MEDS/BIOL SUB 05/03/2019 CECILLE CONWAY DO Ot Z90.49 ACQUIRED ABSENCE OF OTHER SPECIFIED PART 05/03/2019 CECILLE CONWAY DO Ot Z90.710 ACQUIRED ABSENCE OF BOTH CERVIX AND UTER 05/03/2019 CECILLE CONWAY DO Ot Z98.84 BARIATRIC SURGERY STATUS 05/03/2019 CECILLE CONWAY DO Ot Z99.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 ON SUPPLEMENTAL OXYGEN 05/04/2019 JORGE QUIÑONES MD, Ot A52.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) 05/04/2019 JORGE QUIÑONES MD, Ot E11.42 TYPE 2 DIABETES MELLITUS WITH DIABETIC P 05/04/2019 JORGE QUIÑONES MD, Ot E11.52 TYPE 2 DIABETES W DIABETIC PERIPHERAL AN 05/04/2019 JORGE QUIÑONES MD, Ot 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 05/04/2019 JORGE QUIÑONES MD, Ot E11.621 TYPE 2 DIABETES MELLITUS WITH FOOT ULCER 05/04/2019 JORGE QUIÑONES MD, Ot E11.65 TYPE 2 DIABETES MELLITUS WITH HYPERGLYCE 05/04/2019 JORGE QUIÑONES MD, Ot E66.01 MORBID (SEVERE) OBESITY DUE TO EXCESS CA 05/04/2019 JORGE QUIÑONES MD Ot 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 05/04/2019 JORGE QUIÑONES MD Ot 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 05/09/2019 JORGE QUIÑONES MD, Ot E11.42 TYPE 2 DIABETES MELLITUS WITH DIABETIC P 05/09/2019 JORGE QUIÑONES MD, Ot E11.52 TYPE 2 DIABETES W DIABETIC PERIPHERAL AN 05/09/2019 JORGE QUIÑONES MD, Ot E11.621 TYPE 2 DIABETES MELLITUS WITH FOOT ULCER 05/09/2019 JORGE QUIÑONES MD, Ot E66.01 MORBID (SEVERE) OBESITY DUE TO EXCESS CA 05/09/2019 JORGE QUIÑONES MD Ot 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 05/09/2019 JORGE QUIÑONES MD Ot I96 GANGRENE, NOT ELSEWHERE CLASSIFIED 05/09/2019 JORGE QUIÑONES MD, Ot 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 05/09/2019 JORGE QUIÑONES MD, Ot M14.672 CHARCOT'S JOINT, LEFT ANKLE AND FOOT 05/09/2019 JORGE QUIÑONES MD, Ot E11.621 TYPE 2 DIABETES MELLITUS WITH FOOT ULCER 05/09/2019 JORGE QUIÑONES MD, Ot 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 05/10/2019 JORGE QUIÑONES MD, Ot E11.42 TYPE 2 DIABETES MELLITUS WITH DIABETIC P 05/10/2019 JORGE QUIÑONES MD, Ot E11.52 TYPE 2 DIABETES W DIABETIC PERIPHERAL AN 05/10/2019 JORGE QUIÑONES MD, Ot E11.621 TYPE 2 DIABETES MELLITUS WITH FOOT ULCER 05/10/2019 JORGE QUIÑONES MD, Ot E66.01 MORBID (SEVERE) OBESITY DUE TO EXCESS CA 05/10/2019 JORGE QUIÑONES MD, Ot 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 05/10/2019 JORGE QUIÑONES MD, Ot I96 GANGRENE, NOT ELSEWHERE CLASSIFIED 05/10/2019 JORGE QUIÑONES MD, Ot 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 05/10/2019 JORGE QUIÑONES MD, Ot M14.672 CHARCOT'S JOINT, LEFT ANKLE AND FOOT 05/15/2019 JORGE QUIÑONES MD, Ot E11.621 TYPE 2 DIABETES MELLITUS WITH FOOT ULCER 05/15/2019 JORGE QUIÑONES MD, Ot 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 05/17/2019 JORGE QUIÑONES MD, Ot E11.42 TYPE 2 DIABETES MELLITUS WITH DIABETIC P 05/17/2019 JORGE QUIÑONES MD, Ot E11.52 TYPE 2 DIABETES W DIABETIC PERIPHERAL AN 05/17/2019 JORGE QUIÑONES MD Ot 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 05/17/2019 JORGE QUIÑONES MD, Ot E11.621 TYPE 2 DIABETES MELLITUS WITH FOOT ULCER 05/17/2019 JORGE QUIÑONES MD, Ot E11.65 TYPE 2 DIABETES MELLITUS WITH HYPERGLYCE 05/17/2019 JORGE QUIÑONES MD, Ot E66.01 MORBID (SEVERE) OBESITY DUE TO EXCESS CA 05/17/2019 JORGE QUIÑONES MD, Ot 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 05/17/2019 JORGE QUIÑONES MD, Ot 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 05/17/2019 JORGE QUIÑONES MD, Ot E11.42 TYPE 2 DIABETES MELLITUS WITH DIABETIC P 05/17/2019 JORGE QUIÑONES MD, Ot E11.52 TYPE 2 DIABETES W DIABETIC PERIPHERAL AN 05/17/2019 JORGE QUIÑONES MD, Ot E11.621 TYPE 2 DIABETES MELLITUS WITH FOOT ULCER 05/17/2019 JORGE QUIÑONES MD, Ot E66.01 MORBID (SEVERE) OBESITY DUE TO EXCESS CA 05/17/2019 JORGE QUIÑONES MD Ot 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 05/17/2019 JORGE QUIÑONES MD, Ot I96 GANGRENE, NOT ELSEWHERE CLASSIFIED 05/17/2019 JORGE QUIÑONES MD, Ot 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 05/17/2019 JORGE QUIÑONES MD, Ot M14.672 CHARCOT'S JOINT, LEFT ANKLE AND FOOT 05/17/2019 JORGE QUIÑONES MD, Ot E11.42 TYPE 2 DIABETES MELLITUS WITH DIABETIC P 05/17/2019 JORGE QUIÑONES MD, Ot E11.52 TYPE 2 DIABETES W DIABETIC PERIPHERAL AN 05/17/2019 JORGE QUIÑONES MD, Ot E11.621 TYPE 2 DIABETES MELLITUS WITH FOOT ULCER 05/17/2019 JORGE QUIÑONES MD, Ot E66.01 MORBID (SEVERE) OBESITY DUE TO EXCESS CA 05/17/2019 JORGE QUIÑONES MD Ot 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 05/17/2019 JORGE QUIÑONES MD, Ot I96 GANGRENE, NOT ELSEWHERE CLASSIFIED 05/17/2019 JORGE QUIÑONES MD, Ot 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 05/17/2019 JORGE QUIÑONES MD, Ot M14.672 CHARCOT'S JOINT, LEFT ANKLE AND FOOT 05/17/2019 JORGE QUIÑONES MD, Ot E11.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 2 DIABETES MELLITUS WITH DIABETIC P 05/17/2019 JORGE QUIÑONES MD, Ot E11.52 TYPE 2 DIABETES W DIABETIC PERIPHERAL AN 05/17/2019 JORGE QUIÑONES MD, Ot E11.621 TYPE 2 DIABETES MELLITUS WITH FOOT ULCER 05/17/2019 JORGE QUIÑONES MD, Ot E11.65 TYPE 2 DIABETES MELLITUS WITH HYPERGLYCE 05/17/2019 JORGE QUIÑONES MD, Ot E66.01 MORBID (SEVERE) OBESITY DUE TO EXCESS CA 05/17/2019 JORGE QUIÑONES MD, Ot I96 [place]ANGR[place], NOT ELSEWHERE CLASSIFIED 05/17/2019 JORGE QUIÑONES MD, Ot 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 05/17/2019 JORGE QUIÑONES MD, Ot M14.672 CHARCOT'S JOINT, LEFT ANKLE AND FOOT 05/17/2019 JORGE QUIÑONES MD, Ot 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.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) 05/17/2019 JORGE QUIÑONES MD, Ot E11.42 TYPE 2 DIABETES MELLITUS WITH DIABETIC P 05/17/2019 JORGE QUIÑONES MD, Ot E11.52 TYPE 2 DIABETES W DIABETIC PERIPHERAL AN 05/17/2019 JORGE QUIÑONES MD, Ot 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 05/17/2019 JORGE QUIÑONES MD, Ot E11.621 TYPE 2 DIABETES MELLITUS WITH FOOT ULCER 05/17/2019 JORGE QUIÑONES MD, Ot E11.65 TYPE 2 DIABETES MELLITUS WITH HYPERGLYCE 05/17/2019 JORGE QUIÑONES MD, Ot E66.01 MORBID (SEVERE) OBESITY DUE TO EXCESS CA 05/17/2019 JORGE QUIÑONES MD, Ot 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 05/17/2019 JORGE QUIÑONES MD, Ot 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 05/17/2019 JORGE QUIÑONES MD, Ot E11.42 TYPE 2 DIABETES MELLITUS WITH DIABETIC P 05/17/2019 JORGE QUIÑONES MD, Ot E11.621 TYPE 2 DIABETES MELLITUS WITH FOOT ULCER 05/17/2019 JORGE QUIÑONES MD, Ot E11.65 TYPE 2 DIABETES MELLITUS WITH HYPERGLYCE 05/17/2019 JORGE QUIÑONES MD, Ot E66.01 MORBID (SEVERE) OBESITY DUE TO EXCESS CA 05/17/2019 JORGE QUIÑONES MD, Ot 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 05/17/2019 JORGE QUIÑONES MD, Ot M14.672 CHARCOT'S JOINT, LEFT ANKLE AND FOOT 05/18/2019 JORGE QUIÑONES MD, Ot E11.42 TYPE 2 DIABETES MELLITUS WITH DIABETIC P 05/18/2019 JORGE QUIÑONES MD Ot E11.52 TYPE 2 DIABETES W DIABETIC PERIPHERAL AN 05/18/2019 JORGE QUIÑONES MD, Ot 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 05/18/2019 JORGE QUIÑONES MD, Ot E11.621 TYPE 2 DIABETES MELLITUS WITH FOOT ULCER 05/18/2019 JORGE QUIÑONES MD, Ot E11.65 TYPE 2 DIABETES MELLITUS WITH HYPERGLYCE 05/18/2019 JORGE QUIÑONES MD, Ot E66.01 MORBID (SEVERE) OBESITY DUE TO EXCESS CA 05/18/2019 JORGE QUIÑONES MD Ot 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 05/18/2019 JORGE QUIÑONES MD, Ot 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 05/22/2019 JORGE QUIÑONES MD, Ot E11.42 TYPE 2 DIABETES MELLITUS WITH DIABETIC P 05/22/2019 JORGE QUIÑONES MD, Ot E11.52 TYPE 2 DIABETES W DIABETIC PERIPHERAL AN 05/22/2019 JORGE QUIÑONES MD, Ot E11.621 TYPE 2 DIABETES MELLITUS WITH FOOT ULCER 05/22/2019 JORGE QUIÑONES MD, Ot E11.65 TYPE 2 DIABETES MELLITUS WITH HYPERGLYCE 05/22/2019 JORGE QUIÑONES MD, Ot E66.01 MORBID (SEVERE) OBESITY DUE TO EXCESS CA 05/22/2019 JORGE QUIÑONES MD, Ot 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 05/22/2019 JORGE QUIÑONES MD, Ot 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 05/22/2019 JORGE QUIÑONES MD, Ot M14.672 CHARCOT'S JOINT, LEFT ANKLE AND FOOT 05/25/2019 JORGE QUIÑONES MD, Ot E11.42 TYPE 2 DIABETES MELLITUS WITH DIABETIC P 05/25/2019 JORGE QUIÑONES MD, Ot E11.52 TYPE 2 DIABETES W DIABETIC PERIPHERAL AN 05/25/2019 JORGE QUIÑONES MD, Ot E11.621 TYPE 2 DIABETES MELLITUS WITH FOOT ULCER 05/25/2019 JORGE QUIÑONES MD, Ot E11.65 TYPE 2 DIABETES MELLITUS WITH HYPERGLYCE 05/25/2019 JORGE QUIÑONES MD, Ot E66.01 MORBID (SEVERE) OBESITY DUE TO EXCESS CA 05/25/2019 JORGE QUIÑONES MD, Ot 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 05/25/2019 JORGE QUIÑONES MD, Ot 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 05/25/2019 JORGE QUIÑONES MD, Ot M14.672 CHARCOT'S JOINT, LEFT ANKLE AND FOOT 05/25/2019 JORGE QUIÑONES MD, Ot E11.42 TYPE 2 DIABETES MELLITUS WITH DIABETIC P 05/25/2019 JORGE QUIÑONES MD, Ot E11.52 TYPE 2 DIABETES W DIABETIC PERIPHERAL AN 05/25/2019 JORGE QUIÑONES MD, Ot E11.621 TYPE 2 DIABETES MELLITUS WITH FOOT ULCER 05/25/2019 JORGE QUIÑONES MD, Ot E66.01 MORBID (SEVERE) OBESITY DUE TO EXCESS CA 05/25/2019 JORGE QUIÑONES MD, Ot 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 05/25/2019 JORGE QUIÑONES MD, Ot I96 GANGRENE, NOT ELSEWHERE CLASSIFIED 05/25/2019 JORGE QUIÑONES MD, Ot 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 05/25/2019 JORGE QUIÑONES MD, Ot M14.672 CHARCOT'S JOINT, LEFT ANKLE AND FOOT 06/07/2019 JORGE QUIÑONES MD, Ot E11.42 TYPE 2 DIABETES MELLITUS WITH DIABETIC P 06/07/2019 JORGE QUIÑONES MD, Ot E11.52 TYPE 2 DIABETES W DIABETIC PERIPHERAL AN 06/07/2019 JORGE QUIÑONES MD, Ot E11.621 TYPE 2 DIABETES MELLITUS WITH FOOT ULCER 06/07/2019 JORGE QUIÑONES MD Ot E11.65 TYPE 2 DIABETES MELLITUS WITH HYPERGLYCE 06/07/2019 JORGE QUIÑONES MD, Ot E66.01 MORBID (SEVERE) OBESITY DUE TO EXCESS CA 06/07/2019 JORGE QUIÑONES MD, Ot 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 06/07/2019 JORGE QUIÑONES MD, Ot 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 06/07/2019 JORGE QUIÑONES MD, Ot M14.672 CHARCOT'S JOINT, LEFT ANKLE AND FOOT 06/16/2019 MARIE LUNA DO Ot 401.9 HYPERTENSION NOS 06/16/2019 MARIE LUNA DO Ot 786.09 RESPIRATORY ABNORM NEC 06/16/2019 MARIE LUNA DO Ot 786.09 RESPIRATORY ABNORM NEC 06/16/2019 MARIE LUNA DO, Ot V72.83 EXAM PRE-OPERATIVE NEC 06/16/2019 ISHMAEL MARTINEZ, JORGE Scott Ot 250.80 DIAB W OTH SPEC MANIFEST, TYPE II OR UNS 06/16/2019 JORGE QUIÑONES MD Ot 707.15 ULCER OF OTHER PART OF FOOT 06/16/2019 JORGE QUIÑONES MD Ot 250.80 DIAB W OTH SPEC MANIFEST, TYPE II OR UNS 06/16/2019 JORGE QUIÑONES MD Ot 707.15 ULCER OF OTHER PART OF FOOT 06/16/2019 MARIE LUNA DO, Ot K43.9 VENTRAL HERNIA WITHOUT OBSTRUCTION OR GA 06/16/2019 MARIE LUNA DO, Ot N20.0 CALCULUS OF KIDNEY 06/16/2019 LUCRETIA MARTINEZ, HARRISON Rueda Ot N20.0 CALCULUS OF KIDNEY 06/16/2019 MARIE LUNA DO, Ot Z12.31 ENCNTR SCREEN MAMMOGRAM FOR MALIGNANT NE 06/16/2019 MARIE LUNA DO, Ot J18.9 PNEUMONIA, UNSPECIFIED ORGANISM 06/16/2019 MARIE LUNA DO, Ot R09.02 HYPOXEMIA 06/16/2019 MARIE LUNA DO, Ot M47.817 SPONDYLS W/O MYELOPATHY OR RADICULOPATHY 06/16/2019 MARIE LUNA DO, Ot M48.07 SPINAL STENOSIS, LUMBOSACRAL REGION 06/16/2019 MARIE LUNA DO, Ot M51.27 OTHER INTERVERTEBRAL DISC DISPLACEMENT, 06/16/2019 MARIE LUNA DO, Ot 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 DISC DEGENERATION, 06/16/2019 MARIE LUNA DO, Ot T14.90XA INJURY, UNSPECIFIED, INITIAL ENCOUNTER 06/16/2019 MARIE LUNA DO, Ot Z98.890 OTHER SPECIFIED POSTPROCEDURAL STATES 06/16/2019 MARIE LUNA DO, Ot E87.8 OT DISORDERS OF ELECTROLYTE AND FLUID B 06/16/2019 MARIE LUNA DO, Ot G93.9 DISORDER OF BRAIN, UNSPECIFIED 06/16/2019 MARIE LUNA DO, Ot R25.1 TREMOR, UNSPECIFIED 06/16/2019 MARIE LUNA DO, Ot Z86.73 PRSNL HX OF TIA (TIA), AND CEREB INFRC W 06/16/2019 ZOIE SWIFT MD, Ot M48.02 SPINAL STENOSIS, CERVICAL REGION 06/16/2019 ZOIE SWIFT MD Ot M50.223 OTHER CERVICAL DISC DISPLACEMENT AT C6-C 06/16/2019 ZOIE SWIFT MD Ot M50.30 OTHER CERVICAL DISC DEGENERATION, UNSP C 06/16/2019 ZOIE SWIFT MD Ot M99.71 CONN TISS AND DISC STENOSIS OF INTVRT FO 06/16/2019 ZOIE SWIFT MD, Ot R27.0 ATAXIA, UNSPECIFIED 06/16/2019 ZOIE SWIFT MD, Ot M47.812 SPONDYLOSIS W/O MYELOPATHY OR RADICULOPA 06/16/2019 ZOIE SWIFT MD, Ot M48.02 SPINAL STENOSIS, CERVICAL REGION 06/16/2019 ZOIE SWIFT MD, Ot M50.322 OTHER CERVICAL DISC DEGENERATION AT C5-C 06/16/2019 MARIE LUNA DO Ot I89.0 LYMPHEDEMA, NOT ELSEWHERE CLASSIFIED 06/16/2019 JORGE QUIÑONES MD Ot E11.42 TYPE 2 DIABETES MELLITUS WITH DIABETIC P 06/16/2019 JORGE QUIÑONES MD, Ot E11.621 TYPE 2 DIABETES MELLITUS WITH FOOT ULCER 06/16/2019 JORGE QUIÑONES MD, Ot E66.01 MORBID (SEVERE) OBESITY DUE TO EXCESS CA 06/16/2019 JORGE QUIÑONES MD, Ot I89 .0 LYMPHEDEMA, NOT ELSEWHERE CLASSIFIED 06/16/2019 JORGE QUIÑONES MD Ot 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 06/16/2019 JORGE QUIÑONES MD, Ot L97.522 NON-PRS CHRONIC ULCER OTH PRT LEFT FOOT 06/16/2019 JORGE QUIÑONES MD Ot Z68.41 BODY MASS INDEX (BMI) 40.0-44.9, ADULT 06/16/2019 JORGE QUIÑONES MD, Ot E11.42 TYPE 2 DIABETES MELLITUS WITH DIABETIC P 06/16/2019 JORGE QUIÑONES MD, Ot E11.621 TYPE 2 DIABETES MELLITUS WITH FOOT ULCER 06/16/2019 JORGE QUIÑONES MD, Ot E66.01 MORBID (SEVERE) OBESITY DUE TO EXCESS CA 06/16/2019 JORGE QUIÑONES MD, Ot I89 .0 LYMPHEDEMA, NOT ELSEWHERE CLASSIFIED 06/16/2019 JORGE QUIÑONES MD, Ot 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 06/16/2019 JORGE QUIÑONES MD, Ot L97.522 NON-PRS CHRONIC ULCER OTH PRT LEFT FOOT 06/16/2019 JORGE QUIÑONES MD, Ot E11.42 TYPE 2 DIABETES MELLITUS WITH DIABETIC P 06/16/2019 JORGE QUIÑONES MD, Ot E11.621 TYPE 2 DIABETES MELLITUS WITH FOOT ULCER 06/16/2019 JORGE QUIÑONES MD, Ot E66.01 MORBID (SEVERE) OBESITY DUE TO EXCESS CA 06/16/2019 JORGE QUIÑONES MD, Ot I89 .0 LYMPHEDEMA, NOT ELSEWHERE CLASSIFIED 06/16/2019 JORGE QUIÑONES MD, Ot 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 06/16/2019 JORGE QUIÑONES MD, Ot L97.522 NON-PRS CHRONIC ULCER OTH PRT LEFT FOOT 06/16/2019 JORGE QUIÑONES MD, Ot M14.672 CHARCOT'S JOINT, LEFT ANKLE AND FOOT 06/16/2019 JORGE QUIÑONES MD Ot Z68.41 BODY MASS INDEX (BMI) 40.0-44.9, ADULT 06/16/2019 JORGE QUIÑONES MD, Ot E11.42 TYPE 2 DIABETES MELLITUS WITH DIABETIC P 06/16/2019 JORGE QUIÑONES MD, Ot E11.621 TYPE 2 DIABETES MELLITUS WITH FOOT ULCER 06/16/2019 JORGE QUIÑONES MD, Ot E66.01 MORBID (SEVERE) OBESITY DUE TO EXCESS CA 06/16/2019 JORGE QUIÑONES MD, Ot I89 .0 LYMPHEDEMA, NOT ELSEWHERE CLASSIFIED 06/16/2019 JORGE QUIÑONES MD, Ot 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 06/16/2019 JORGE QUIÑONSE MD, Ot L97.522 NON-PRS CHRONIC ULCER OTH PRT LEFT FOOT 06/16/2019 JORGE QUIÑONES MD, Ot M14.672 CHARCOT'S JOINT, LEFT ANKLE AND FOOT 06/16/2019 JORGE QUIÑONES MD Ot Z68.41 BODY MASS INDEX (BMI) 40.0-44.9, ADULT 06/16/2019 JORGE QUIÑONES MD Ot E11.42 TYPE 2 DIABETES MELLITUS WITH DIABETIC P 06/16/2019 JORGE QUIÑONES MD, Ot E11.621 TYPE 2 DIABETES MELLITUS WITH FOOT ULCER 06/16/2019 JORGE QUIÑONES MD, Ot E66.01 MORBID (SEVERE) OBESITY DUE TO EXCESS CA 06/16/2019 JORGE QUIÑONES MD, Ot 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 06/16/2019 JORGE QUIÑONES MD, Ot L97.522 NON-PRS CHRONIC ULCER OTH PRT LEFT FOOT 06/16/2019 JORGE QUIÑONES MD, Ot M14.672 CHARCOT'S JOINT, LEFT ANKLE AND FOOT 06/16/2019 JORGE QUIÑONES MD, Ot Z68.41 BODY MASS INDEX (BMI) 40.0-44.9, ADULT 06/16/2019 JORGE QUIÑONES MD, Ot E11.42 TYPE 2 DIABETES MELLITUS WITH DIABETIC P 06/16/2019 JORGE QUIÑONES MD, Ot E11.621 TYPE 2 DIABETES MELLITUS WITH FOOT ULCER 06/16/2019 JORGE QUIÑONES MD, Ot E66.01 MORBID (SEVERE) OBESITY DUE TO EXCESS CA 06/16/2019 JORGE QUIÑONES MD, Ot 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 06/16/2019 JORGE QUIÑONES MD, Ot M14.672 CHARCOT'S JOINT, LEFT ANKLE AND FOOT 06/16/2019 JORGE QUIÑONES MD, Ot E11.42 TYPE 2 DIABETES MELLITUS WITH DIABETIC P 06/16/2019 JORGE QUIÑONES MD, Ot E11.621 TYPE 2 DIABETES MELLITUS WITH FOOT ULCER 06/16/2019 JORGE QUIÑONES MD, Ot E66.01 MORBID (SEVERE) OBESITY DUE TO EXCESS CA 06/16/2019 JORGE QUIÑONES MD, Ot 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 06/16/2019 JORGE QUIÑONES MD, Ot M14.672 CHARCOT'S JOINT, LEFT ANKLE AND FOOT 06/16/2019 JORGE QUIÑONES MD, Ot Z68.41 BODY MASS INDEX (BMI) 40.0-44.9, ADULT 06/16/2019 JORGE QUIÑONES MD, Ot E11.42 TYPE 2 DIABETES MELLITUS WITH DIABETIC P 06/16/2019 JORGE QUIÑONES MD, Ot E11.621 TYPE 2 DIABETES MELLITUS WITH FOOT ULCER 06/16/2019 JORGE QUIÑONES MD, Ot E66.01 MORBID (SEVERE) OBESITY DUE TO EXCESS CA 06/16/2019 JORGE QUIÑONES MD, Ot 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 06/16/2019 JORGE QUIÑONES MD, Ot M14.672 CHARCOT'S JOINT, LEFT ANKLE AND FOOT 06/16/2019 JORGE QUIÑONES MD, Ot Z68.41 BODY MASS INDEX (BMI) 40.0-44.9, ADULT 06/16/2019 JORGE QUIÑONES MD, Ot E11.42 TYPE 2 DIABETES MELLITUS WITH DIABETIC P 06/16/2019 JORGE QUIÑONES MD, Ot E11.621 TYPE 2 DIABETES MELLITUS WITH FOOT ULCER 06/16/2019 JORGE QUIÑONES MD, Ot E66.01 MORBID (SEVERE) OBESITY DUE TO EXCESS CA 06/16/2019 JORGE QUIÑONES MD, Ot 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 06/16/2019 JORGE QUIÑONES MD, Ot M14.672 CHARCOT'S JOINT, LEFT ANKLE AND FOOT 06/16/2019 JORGE QUIÑONES MD, Ot Z68.41 BODY MASS INDEX (BMI) 40.0-44.9, ADULT 06/16/2019 JORGE QUIÑONES MD, Ot E11.42 TYPE 2 DIABETES MELLITUS WITH DIABETIC P 06/16/2019 JORGE QUIÑONES MD, Ot E11.621 TYPE 2 DIABETES MELLITUS WITH FOOT ULCER 06/16/2019 JORGE QUIÑONES MD, Ot E66.01 MORBID (SEVERE) OBESITY DUE TO EXCESS CA 06/16/2019 JORGE QUIÑONES MD, Ot 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 06/16/2019 JORGE QUIÑONES MD, Ot M14.672 CHARCOT'S JOINT, LEFT ANKLE AND FOOT 06/16/2019 JORGE QUIÑONES MD, Ot Z68.41 BODY MASS INDEX (BMI) 40.0-44.9, ADULT 06/16/2019 JORGE QUIÑONES MD, Ot E11.42 TYPE 2 DIABETES MELLITUS WITH DIABETIC P 06/16/2019 JORGE QUIÑONES MD, Ot 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 06/16/2019 JORGE QUIÑONES MD, Ot E11.621 TYPE 2 DIABETES MELLITUS WITH FOOT ULCER 06/16/2019 JORGE QUIÑONES MD, Ot E66.01 MORBID (SEVERE) OBESITY DUE TO EXCESS CA 06/16/2019 JORGE QUIÑONES MD, Ot 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 06/16/2019 JORGE QUIÑONES MD, Ot Z68.41 BODY MASS INDEX (BMI) 40.0-44.9, ADULT 06/16/2019 JORGE QUIÑONES MD, Ot E11.42 TYPE 2 DIABETES MELLITUS WITH DIABETIC P 06/16/2019 JORGE QUIÑONES MD, Ot E11.621 TYPE 2 DIABETES MELLITUS WITH FOOT ULCER 06/16/2019 JORGE QUIÑONES MD, Ot E66.01 MORBID (SEVERE) OBESITY DUE TO EXCESS CA 06/16/2019 JORGE QUIÑONES MD, Ot 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 06/16/2019 JORGE QUIÑONES MD, Ot M14.672 CHARCOT'S JOINT, LEFT ANKLE AND FOOT 06/16/2019 JORGE QUIÑONES MD, Ot E11.42 TYPE 2 DIABETES MELLITUS WITH DIABETIC P 06/16/2019 JORGE QUIÑONES MD, Ot E11.621 TYPE 2 DIABETES MELLITUS WITH FOOT ULCER 06/16/2019 JORGE QUIÑONES MD, Ot E66.01 MORBID (SEVERE) OBESITY DUE TO EXCESS CA 06/16/2019 JORGE QUIÑONES MD, Ot 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 06/16/2019 JORGE QUIÑONES MD, Ot M14.672 CHARCOT'S JOINT, LEFT ANKLE AND FOOT 06/16/2019 JORGE QUIÑONES MD, Ot E11.42 TYPE 2 DIABETES MELLITUS WITH DIABETIC P 06/16/2019 JORGE QUIÑONES MD, Ot 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 06/16/2019 JORGE QUIÑONES MD, Ot E11.621 TYPE 2 DIABETES MELLITUS WITH FOOT ULCER 06/16/2019 JORGE QUIÑONES MD, Ot 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 06/16/2019 JORGE QUIÑONES MD, Ot E11.42 TYPE 2 DIABETES MELLITUS WITH DIABETIC P 06/16/2019 JORGE QUIÑONES MD, Ot 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 06/16/2019 JORGE QUIÑONES MD, Ot E11.621 TYPE 2 DIABETES MELLITUS WITH FOOT ULCER 06/16/2019 JORGE QUIÑONES MD, Ot L97.421 NON-PRS CHR ULCER OF LEFT HEEL AND MIDFT 06/16/2019 ISHMAEL MD, JORGE G Ot E11.42 TYPE 2 DIABETES MELLITUS WITH DIABETIC P 06/16/2019 JORGE QUIÑONES MD, Ot 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 06/16/2019 JORGE QUIÑONES MD, Ot E11.621 TYPE 2 DIABETES MELLITUS WITH FOOT ULCER 06/16/2019 JORGE QUIÑONES MD, Ot L97.421 NON-PRS CHR ULCER OF LEFT HEEL AND MIDFT 06/16/2019 JORGE QUIÑONES MD, Ot 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 06/16/2019 JORGE QUIÑONES MD, Ot E11.42 TYPE 2 DIABETES MELLITUS WITH DIABETIC P 06/16/2019 JORGE QUIÑONES MD, Ot 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 06/16/2019 JORGE QUIÑONES MD, Ot E11.621 TYPE 2 DIABETES MELLITUS WITH FOOT ULCER 06/16/2019 JORGE QUIÑONES MD, Ot 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 06/16/2019 JORGE QUIÑONES MD, Ot E11.42 TYPE 2 DIABETES MELLITUS WITH DIABETIC P 06/16/2019 JORGE QUIÑONES MD, Ot E11.621 TYPE 2 DIABETES MELLITUS WITH FOOT ULCER 06/16/2019 JORGE QUIÑONES MD, Ot E11.65 TYPE 2 DIABETES MELLITUS WITH HYPERGLYCE 06/16/2019 JORGE QUIÑONES MD, Ot E66.01 MORBID (SEVERE) OBESITY DUE TO EXCESS CA 06/16/2019 JORGE QUIÑONES MD, Ot 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 06/16/2019 JORGE QUIÑONES MD, Ot M14.672 CHARCOT'S JOINT, LEFT ANKLE AND FOOT 06/16/2019 JORGE QUIÑONES MD, Ot E11.42 TYPE 2 DIABETES MELLITUS WITH DIABETIC P 06/16/2019 JORGE QUIÑONES MD Ot E11.52 TYPE 2 DIABETES W DIABETIC PERIPHERAL AN 06/16/2019 JORGE QUIÑONES MD, Ot E11.621 TYPE 2 DIABETES MELLITUS WITH FOOT ULCER 06/16/2019 JORGE QUIÑONES MD, Ot E11.65 TYPE 2 DIABETES MELLITUS WITH HYPERGLYCE 06/16/2019 JORGE QUIÑONES MD, Ot E66.01 MORBID (SEVERE) OBESITY DUE TO EXCESS CA 06/16/2019 JORGE QUIÑONES MD, Ot I96 GANGRENE, NOT ELSEWHERE CLASSIFIED 06/16/2019 JORGE QUIÑONES MD, Ot 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 06/16/2019 JORGE QUIÑONES MD, Ot M14.672 CHARCOT'S JOINT, LEFT ANKLE AND FOOT 06/16/2019 JORGE QUIÑONES MD, Ot A52.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) 06/16/2019 JORGE QUIÑONES MD, Ot E11.42 TYPE 2 DIABETES MELLITUS WITH DIABETIC P 06/16/2019 JORGE QUIÑONES MD, Ot E11.52 TYPE 2 DIABETES W DIABETIC PERIPHERAL AN 06/16/2019 JORGE QUIÑONES MD, Ot 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 06/16/2019 JORGE QUIÑONES MD, Ot E11.621 TYPE 2 DIABETES MELLITUS WITH FOOT ULCER 06/16/2019 JORGE QUIÑONES MD, Ot E11.65 TYPE 2 DIABETES MELLITUS WITH HYPERGLYCE 06/16/2019 JORGE QUIÑONES MD, Ot E66.01 MORBID (SEVERE) OBESITY DUE TO EXCESS CA 06/16/2019 JORGE QUIÑONES MD, Ot 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 06/16/2019 JORGE QUIÑONES MD, Ot 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 06/16/2019 JORGE QUIÑONES MD, Ot E11.42 TYPE 2 DIABETES MELLITUS WITH DIABETIC P 06/16/2019 JORGE QUIÑONES MD, Ot E11.52 TYPE 2 DIABETES W DIABETIC PERIPHERAL AN 06/16/2019 JORGE QUIÑONES MD, Ot E11.621 TYPE 2 DIABETES MELLITUS WITH FOOT ULCER 06/16/2019 JORGE QUIÑONES MD, Ot E66.01 MORBID (SEVERE) OBESITY DUE TO EXCESS CA 06/16/2019 JORGE QUIÑONES MD, Ot 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 06/16/2019 JORGE QUIÑONES MD, Ot I96 GANGRENE, NOT ELSEWHERE CLASSIFIED 06/16/2019 JORGE QUIÑONES MD, Ot 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 06/16/2019 JORGE QUIÑONES MD, Ot M14.672 CHARCOT'S JOINT, LEFT ANKLE AND FOOT 06/16/2019 JORGE QUIÑONES MD, Ot E11.621 TYPE 2 DIABETES MELLITUS WITH FOOT ULCER 06/16/2019 JORGE QUIÑONES MD, Ot 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 06/16/2019 JORGE QUIÑONES MD, Ot E11.42 TYPE 2 DIABETES MELLITUS WITH DIABETIC P 06/16/2019 JORGE QUIÑONES MD, Ot E11.52 TYPE 2 DIABETES W DIABETIC PERIPHERAL AN 06/16/2019 JORGE QUIÑONES MD, Ot 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 06/16/2019 JORGE QUIÑONES MD, Ot E11.621 TYPE 2 DIABETES MELLITUS WITH FOOT ULCER 06/16/2019 JORGE QUIÑONES MD, Ot E11.65 TYPE 2 DIABETES MELLITUS WITH HYPERGLYCE 06/16/2019 JORGE QUIÑONES MD, Ot E66.01 MORBID (SEVERE) OBESITY DUE TO EXCESS CA 06/16/2019 JORGE QUIÑONES MD, Ot 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 06/16/2019 JORGE QUIÑONES MD, Ot 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 06/16/2019 JORGE QUIÑONES MD, Ot E11.42 TYPE 2 DIABETES MELLITUS WITH DIABETIC P 06/16/2019 JORGE QUIÑONES MD, Ot E11.52 TYPE 2 DIABETES W DIABETIC PERIPHERAL AN 06/16/2019 JORGE QUIÑONES MD, Ot E11.621 TYPE 2 DIABETES MELLITUS WITH FOOT ULCER 06/16/2019 JORGE QUIÑONES MD, Ot E66.01 MORBID (SEVERE) OBESITY DUE TO EXCESS CA 06/16/2019 JORGE QUIÑONES MD, Ot 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 06/16/2019 JORGE QUIÑONES MD, Ot I96 GANGRENE, NOT ELSEWHERE CLASSIFIED 06/16/2019 JORGE QUIÑONES MD, Ot 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 06/16/2019 JORGE QUIÑONES MD, Ot M14.672 CHARCOT'S JOINT, LEFT ANKLE AND FOOT 06/16/2019 JORGE QUIÑONES MD, Ot E11.42 TYPE 2 DIABETES MELLITUS WITH DIABETIC P 06/16/2019 JORGE QUIÑONES MD, Ot E11.52 TYPE 2 DIABETES W DIABETIC PERIPHERAL AN 06/16/2019 JORGE QUIÑONES MD, Ot E11.621 TYPE 2 DIABETES MELLITUS WITH FOOT ULCER 06/16/2019 JORGE QUIÑONES MD, Ot E11.65 TYPE 2 DIABETES MELLITUS WITH HYPERGLYCE 06/16/2019 JORGE QUIÑONES MD, Ot E66.01 MORBID (SEVERE) OBESITY DUE TO EXCESS CA 06/16/2019 JORGE QUIÑONES MD, Ot 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 06/16/2019 JORGE QUIÑONES MD, Ot 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 06/16/2019 JORGE QUIÑONES MD, Ot M14.672 CHARCOT'S JOINT, LEFT ANKLE AND FOOT 06/16/2019 JORGE QUIÑONES MD, Ot E11.42 TYPE 2 DIABETES MELLITUS WITH DIABETIC P 06/16/2019 JORGE QUIÑONES MD, Ot E11.52 TYPE 2 DIABETES W DIABETIC PERIPHERAL AN 06/16/2019 JORGE QUIÑONES MD, Ot E11.621 TYPE 2 DIABETES MELLITUS WITH FOOT ULCER 06/16/2019 JORGE QUIÑONES MD, Ot E11.65 TYPE 2 DIABETES MELLITUS WITH HYPERGLYCE 06/16/2019 JORGE QUIÑONES MD, Ot E66.01 MORBID (SEVERE) OBESITY DUE TO EXCESS CA 06/16/2019 JORGE QUIÑONES MD Ot 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 06/16/2019 JORGE QUIÑONES MD, Ot 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 06/16/2019 JORGE QUIÑONES MD, Ot M14.672 CHARCOT'S JOINT, LEFT ANKLE AND FOOT 06/16/2019 JORGE QUIÑONES MD, Ot E11.42 TYPE 2 DIABETES MELLITUS WITH DIABETIC P 06/16/2019 JORGE QUIÑONES MD, Ot E11.52 TYPE 2 DIABETES W DIABETIC PERIPHERAL AN 06/16/2019 JORGE QUIÑONES MD, Ot E11.621 TYPE 2 DIABETES MELLITUS WITH FOOT ULCER 06/16/2019 JORGE QUIÑONES MD, Ot E11.65 TYPE 2 DIABETES MELLITUS WITH HYPERGLYCE 06/16/2019 JORGE QUIÑONES MD Ot E66.01 MORBID (SEVERE) OBESITY DUE TO EXCESS CA 06/16/2019 JORGE QUIÑONES MD Ot 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 06/16/2019 JORGE QUIÑONES MD, Ot 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 06/16/2019 JORGE QUIÑONES MD, Ot M14.672 CHARCOT'S JOINT, LEFT ANKLE AND FOOT 06/16/2019 JORGE QUIÑONES MD, Ot E11.42 TYPE 2 DIABETES MELLITUS WITH DIABETIC P 06/16/2019 JORGE QUIÑONES MD, Ot E11.52 TYPE 2 DIABETES W DIABETIC PERIPHERAL AN 06/16/2019 JORGE QUIÑONES MD, Ot E11.621 TYPE 2 DIABETES MELLITUS WITH FOOT ULCER 06/16/2019 JORGE QUIÑONES MD, Ot E11.65 TYPE 2 DIABETES MELLITUS WITH HYPERGLYCE 06/16/2019 JORGE QUIÑONES MD, Ot E66.01 MORBID (SEVERE) OBESITY DUE TO EXCESS CA 06/16/2019 JORGE QUIÑONES MD, Ot 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 06/16/2019 JORGE QUIÑONES MD, Ot 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 06/16/2019 JORGE QUIÑONES MD, Ot M14.672 CHARCOT'S JOINT, LEFT ANKLE AND FOOT 06/19/2019 MARIE LUNA DO, Ot 401.9 HYPERTENSION NOS 06/19/2019 MARIE LUNA DO, Ot 786.09 RESPIRATORY ABNORM NEC 06/19/2019 MARIE LUNA DO, Ot 786.09 RESPIRATORY ABNORM NEC 06/19/2019 MARIE LUNA DO, Ot V72.83 EXAM PRE-OPERATIVE NEC 06/19/2019 JORGE QUIÑONES MD Ot 250.80 DIAB W OTH SPEC MANIFEST, TYPE II OR UNS 06/19/2019 JORGE QUIÑONES MD Ot 707.15 ULCER OF OTHER PART OF FOOT 06/19/2019 JORGE QUIÑONES MD Ot 250.80 DIAB W OTH SPEC MANIFEST, TYPE II OR UNS 06/19/2019 JORGE QUIÑONES MD, Ot 707.15 ULCER OF OTHER PART OF FOOT 06/19/2019 MARIE LUNA DO, Ot K43.9 VENTRAL HERNIA WITHOUT OBSTRUCTION OR GA 06/19/2019 MARIE LUNA DO, Ot N20.0 CALCULUS OF KIDNEY 06/19/2019 HARRISON BOYKIN MD, Ot N20.0 CALCULUS OF KIDNEY 06/19/2019 MARIE LUNA DO, Ot Z12.31 ENCNTR SCREEN MAMMOGRAM FOR MALIGNANT NE 06/19/2019 MARIE LUNA DO, Ot J18.9 PNEUMONIA, UNSPECIFIED ORGANISM 06/19/2019 MARIE LUNA DO Ot R09.02 HYPOXEMIA 06/19/2019 MARIE LUNA DO, Ot M47.817 SPONDYLS W/O MYELOPATHY OR RADICULOPATHY 06/19/2019 MARIE LUNA DO Ot M48.07 SPINAL STENOSIS, LUMBOSACRAL REGION 06/19/2019 MARIE LUNA DO Ot M51.27 OTHER INTERVERTEBRAL DISC DISPLACEMENT, 06/19/2019 MARIE ULNA DO, Ot 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 DISC DEGENERATION, 06/19/2019 MARIE LUNA DO Ot T14.90XA INJURY, UNSPECIFIED, INITIAL ENCOUNTER 06/19/2019 MARIE LUNA DO, Ot Z98.890 OTHER SPECIFIED POSTPROCEDURAL STATES 06/19/2019 MARIE LUNA DO, Ot E87.8 OTH DISORDERS OF ELECTROLYTE AND FLUID B 06/19/2019 MARIE LUNA DO, Ot G93.9 DISORDER OF BRAIN, UNSPECIFIED 06/19/2019 MARIE LUNA DO, Ot R25.1 TREMOR, UNSPECIFIED 06/19/2019 MARIE LUNA DO, Ot Z86.73 PRSNL HX OF TIA (TIA), AND CEREB INFRC W 06/19/2019 ZOIE SWIFT MD, Ot M48.02 SPINAL STENOSIS, CERVICAL REGION 06/19/2019 ZOIE SWIFT MD, Ot M50.223 OTHER CERVICAL DISC DISPLACEMENT AT C6-C 06/19/2019 ZOIE SWIFT MD, Ot M50.30 OTHER CERVICAL DISC DEGENERATION, UNSP C 06/19/2019 ZOIE SWIFT MD, Ot M99.71 CONN TISS AND DISC STENOSIS OF INTVRT FO 06/19/2019 ZOIE SWIFT MD, Ot R27.0 ATAXIA, UNSPECIFIED 06/19/2019 ZOIE SWIFT MD, Ot M47.812 SPONDYLOSIS W/O MYELOPATHY OR RADICULOPA 06/19/2019 ZOIE SWIFT MD, Ot M48.02 SPINAL STENOSIS, CERVICAL REGION 06/19/2019 ZOIE SWIFT MD, Ot M50.322 OTHER CERVICAL DISC DEGENERATION AT C5-C 06/19/2019 MARIE LUNA DO Ot I89.0 LYMPHEDEMA, NOT ELSEWHERE CLASSIFIED 06/19/2019 JORGE QUIÑONES MD Ot E11.42 TYPE 2 DIABETES MELLITUS WITH DIABETIC P 06/19/2019 JORGE QUIÑONES MD Ot E11.621 TYPE 2 DIABETES MELLITUS WITH FOOT ULCER 06/19/2019 JORGE QUIÑONES MD, Ot E66.01 MORBID (SEVERE) OBESITY DUE TO EXCESS CA 06/19/2019 JORGE QUIÑONES MD, Ot I89 .0 LYMPHEDEMA, NOT ELSEWHERE CLASSIFIED 06/19/2019 JORGE QUIÑONES MD, Ot 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 06/19/2019 JORGE QUIÑONES MD, Ot L97.522 NON-PRS CHRONIC ULCER OTH PRT LEFT FOOT 06/19/2019 JORGE QUIÑONES MD, Ot Z68.41 BODY MASS INDEX (BMI) 40.0-44.9, ADULT 06/19/2019 JORGE QUIÑONES MD, Ot E11.42 TYPE 2 DIABETES MELLITUS WITH DIABETIC P 06/19/2019 JORGE QUIÑONES MD, Ot E11.621 TYPE 2 DIABETES MELLITUS WITH FOOT ULCER 06/19/2019 JORGE QUIÑONES MD, Ot E66.01 MORBID (SEVERE) OBESITY DUE TO EXCESS CA 06/19/2019 JORGE QUIÑONES MD, Ot I89 .0 LYMPHEDEMA, NOT ELSEWHERE CLASSIFIED 06/19/2019 JORGE QUIÑONES MD, Ot 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 06/19/2019 JORGE QUIÑONES MD, Ot L97.522 NON-PRS CHRONIC ULCER OTH PRT LEFT FOOT 06/19/2019 JORGE QUIÑONES MD, Ot E11.42 TYPE 2 DIABETES MELLITUS WITH DIABETIC P 06/19/2019 JORGE QUIÑONES MD, Ot E11.621 TYPE 2 DIABETES MELLITUS WITH FOOT ULCER 06/19/2019 JORGE QUIÑONES MD, Ot E66.01 MORBID (SEVERE) OBESITY DUE TO EXCESS CA 06/19/2019 JORGE QUIÑONES MD, Ot I89 .0 LYMPHEDEMA, NOT ELSEWHERE CLASSIFIED 06/19/2019 JORGE QUIÑONES MD, Ot 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 06/19/2019 JORGE QUIÑONES MD, Ot L97.522 NON-PRS CHRONIC ULCER OTH PRT LEFT FOOT 06/19/2019 JORGE QUIÑONES MD, Ot M14.672 CHARCOT'S JOINT, LEFT ANKLE AND FOOT 06/19/2019 JORGE QUIÑONES MD, Ot Z68.41 BODY MASS INDEX (BMI) 40.0-44.9, ADULT 06/19/2019 JORGE QUIÑONES MD, Ot E11.42 TYPE 2 DIABETES MELLITUS WITH DIABETIC P 06/19/2019 JORGE QUIÑONES MD, Ot E11.621 TYPE 2 DIABETES MELLITUS WITH FOOT ULCER 06/19/2019 JORGE QUIÑONES MD, Ot E66.01 MORBID (SEVERE) OBESITY DUE TO EXCESS CA 06/19/2019 JORGE QUIÑONES MD, Ot I89 .0 LYMPHEDEMA, NOT ELSEWHERE CLASSIFIED 06/19/2019 JORGE QUIÑONES MD, Ot 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 06/19/2019 JORGE QUIÑONES MD, Ot L97.522 NON-PRS CHRONIC ULCER OTH PRT LEFT FOOT 06/19/2019 JORGE QUIÑONES MD, Ot M14.672 CHARCOT'S JOINT, LEFT ANKLE AND FOOT 06/19/2019 JORGE QUIÑONES MD, Ot Z68.41 BODY MASS INDEX (BMI) 40.0-44.9, ADULT 06/19/2019 JORGE QUIÑONES MD, Ot E11.42 TYPE 2 DIABETES MELLITUS WITH DIABETIC P 06/19/2019 JORGE QUIÑONES MD, Ot E11.621 TYPE 2 DIABETES MELLITUS WITH FOOT ULCER 06/19/2019 JORGE QUIÑONES MD, Ot E66.01 MORBID (SEVERE) OBESITY DUE TO EXCESS CA 06/19/2019 JORGE QUIÑONES MD, Ot 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 06/19/2019 JORGE QUIÑONES MD, Ot L97.522 NON-PRS CHRONIC ULCER OTH PRT LEFT FOOT 06/19/2019 JORGE QUIÑONES MD, Ot M14.672 CHARCOT'S JOINT, LEFT ANKLE AND FOOT 06/19/2019 JORGE QUIÑONES MD, Ot Z68.41 BODY MASS INDEX (BMI) 40.0-44.9, ADULT 06/19/2019 JORGE QUIÑONES MD, Ot E11.42 TYPE 2 DIABETES MELLITUS WITH DIABETIC P 06/19/2019 JORGE QUIÑONES MD, Ot E11.621 TYPE 2 DIABETES MELLITUS WITH FOOT ULCER 06/19/2019 JORGE QUIÑONES MD, Ot E66.01 MORBID (SEVERE) OBESITY DUE TO EXCESS CA 06/19/2019 JORGE QUIÑONES MD, Ot 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 06/19/2019 JORGE QUIÑONES MD, Ot M14.672 CHARCOT'S JOINT, LEFT ANKLE AND FOOT 06/19/2019 JORGE QUIÑONES MD, Ot E11.42 TYPE 2 DIABETES MELLITUS WITH DIABETIC P 06/19/2019 JORGE QUIÑONES MD, Ot E11.621 TYPE 2 DIABETES MELLITUS WITH FOOT ULCER 06/19/2019 JORGE QUIÑONES MD, Ot E66.01 MORBID (SEVERE) OBESITY DUE TO EXCESS CA 06/19/2019 JORGE QUIÑONES MD, Ot 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 06/19/2019 JORGE QUIÑONES MD, Ot M14.672 [place]ARCOT'S JOINT, LEFT ANKLE AND FOOT 06/19/2019 JORGE QUIÑONES MD, Ot Z68.41 BODY MASS INDEX (BMI) 40.0-44.9, ADULT 06/19/2019 JORGE QUIÑONES MD, Ot E11.42 TYPE 2 DIABETES MELLITUS WITH DIABETIC P 06/19/2019 JORGE QUIÑONES MD, Ot E11.621 TYPE 2 DIABETES MELLITUS WITH FOOT ULCER 06/19/2019 JORGE QUIÑONES MD, Ot E66.01 MORBID (SEVERE) OBESITY DUE TO EXCESS CA 06/19/2019 JORGE QUIÑONES MD, Ot 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 06/19/2019 JORGE QUIÑONES MD, Ot M14.672 CHARCOT'S JOINT, LEFT ANKLE AND FOOT 06/19/2019 JORGE QUIÑONES MD, Ot Z68.41 BODY MASS INDEX (BMI) 40.0-44.9, ADULT 06/19/2019 JORGE QUIÑONES MD, Ot E11.42 TYPE 2 DIABETES MELLITUS WITH DIABETIC P 06/19/2019 JORGE QUIÑONES MD, Ot E11.621 TYPE 2 DIABETES MELLITUS WITH FOOT ULCER 06/19/2019 JORGE QUIÑONES MD, Ot E66.01 MORBID (SEVERE) OBESITY DUE TO EXCESS CA 06/19/2019 JORGE QUIÑONES MD, Ot 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 06/19/2019 JORGE QUIÑONES MD, Ot M14.672 [place]ARCOT'S JOINT, LEFT ANKLE AND FOOT 06/19/2019 JORGE QUIÑONES MD, Ot Z68.41 BODY MASS INDEX (BMI) 40.0-44.9, ADULT 06/19/2019 JORGE QUIÑONES MD, Ot E11.42 TYPE 2 DIABETES MELLITUS WITH DIABETIC P 06/19/2019 ISHMAEL MD, JORGE G Ot E11.621 TYPE 2 DIABETES MELLITUS WITH FOOT ULCER 06/19/2019 JORGE QUIÑONES MD, Ot E66.01 MORBID (SEVERE) OBESITY DUE TO EXCESS CA 06/19/2019 JORGE QUIÑONES MD, Ot 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 06/19/2019 JORGE QUIÑONES MD, Ot M14.672 CHARCOT'S JOINT, LEFT ANKLE AND FOOT 06/19/2019 JORGE QUIÑONES MD, Ot Z68.41 BODY MASS INDEX (BMI) 40.0-44.9, ADULT 06/19/2019 JORGE QUIÑONES MD, Ot E11.42 TYPE 2 DIABETES MELLITUS WITH DIABETIC P 06/19/2019 JORGE QUIÑONES MD, Ot 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 06/19/2019 JORGE QUIÑONES MD, Ot E11.621 TYPE 2 DIABETES MELLITUS WITH FOOT ULCER 06/19/2019 JORGE QUIÑONES MD, Ot E66.01 MORBID (SEVERE) OBESITY DUE TO EXCESS CA 06/19/2019 JORGE QUIÑONES MD, Ot 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 06/19/2019 JORGE QUIÑONES MD, Ot Z68.41 BODY MASS INDEX (BMI) 40.0-44.9, ADULT 06/19/2019 JORGE QUIÑONES MD, Ot E11.42 TYPE 2 DIABETES MELLITUS WITH DIABETIC P 06/19/2019 JORGE QUIÑONES MD, Ot E11.621 TYPE 2 DIABETES MELLITUS WITH FOOT ULCER 06/19/2019 JORGE QUIÑONES MD, Ot E66.01 MORBID (SEVERE) OBESITY DUE TO EXCESS CA 06/19/2019 JORGE QUIÑONES MD, Ot 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 06/19/2019 JORGE QUIÑONES MD, Ot M14.672 CHARCOT'S JOINT, LEFT ANKLE AND FOOT 06/19/2019 JORGE QUIÑONES MD, Ot E11.42 TYPE 2 DIABETES MELLITUS WITH DIABETIC P 06/19/2019 JORGE QUIÑONES MD, Ot E11.621 TYPE 2 DIABETES MELLITUS WITH FOOT ULCER 06/19/2019 JORGE QUIÑONES MD, Ot E66.01 MORBID (SEVERE) OBESITY DUE TO EXCESS CA 06/19/2019 JORGE QUIÑONES MD, Ot 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 06/19/2019 JORGE QUIÑONES MD, Ot M14.672 CHARCOT'S JOINT, LEFT ANKLE AND FOOT 06/19/2019 JORGE QUIÑONES MD Ot E11.42 TYPE 2 DIABETES MELLITUS WITH DIABETIC P 06/19/2019 JORGE QUIÑONES MD, Ot 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 06/19/2019 JORGE QUIÑONES MD, Ot E11.621 TYPE 2 DIABETES MELLITUS WITH FOOT ULCER 06/19/2019 JORGE QUIÑONES MD Ot 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 06/19/2019 JORGE QUIÑONES MD Ot E11.42 TYPE 2 DIABETES MELLITUS WITH DIABETIC P 06/19/2019 JORGE QUIÑONES MD, Ot 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 06/19/2019 JORGE QUIÑONES MD, Ot E11.621 TYPE 2 DIABETES MELLITUS WITH FOOT ULCER 06/19/2019 JORGE QUIÑONES MD, Ot L97.421 NON-PRS CHR ULCER OF LEFT HEEL AND MIDFT 06/19/2019 JORGE QUIÑONES MD Ot E11.42 TYPE 2 DIABETES MELLITUS WITH DIABETIC P 06/19/2019 JORGE QUIÑONES MD Ot 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 06/19/2019 JORGE QUIÑONES MD, Ot E11.621 TYPE 2 DIABETES MELLITUS WITH FOOT ULCER 06/19/2019 JORGE QUIÑONES MD Ot L97.421 NON-PRS CHR ULCER OF LEFT HEEL AND MIDFT 06/19/2019 JORGE QUIÑONES MD Ot 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 06/19/2019 JORGE QUIÑONES MD Ot E11.42 TYPE 2 DIABETES MELLITUS WITH DIABETIC P 06/19/2019 JORGE QUIÑONES MD Ot 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 06/19/2019 JORGE QUIÑONES MD Ot E11.621 TYPE 2 DIABETES MELLITUS WITH FOOT ULCER 06/19/2019 JORGE QUIÑONES MD Ot 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 06/19/2019 JORGE QUIÑONES MD Ot E11.42 TYPE 2 DIABETES MELLITUS WITH DIABETIC P 06/19/2019 JORGE QUIÑONES MD Ot E11.621 TYPE 2 DIABETES MELLITUS WITH FOOT ULCER 06/19/2019 JORGE QUIÑONES MD Ot E11.65 TYPE 2 DIABETES MELLITUS WITH HYPERGLYCE 06/19/2019 JORGE QUIÑONES MD Ot E66.01 MORBID (SEVERE) OBESITY DUE TO EXCESS CA 06/19/2019 JORGE QUIÑONES MD, Ot 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 06/19/2019 JORGE QUIÑONES MD, Ot M14.672 CHARCOT'S JOINT, LEFT ANKLE AND FOOT 06/19/2019 JORGE QUIÑONES MD, Ot E11.42 TYPE 2 DIABETES MELLITUS WITH DIABETIC P 06/19/2019 JORGE QUIÑONES MD, Ot E11.52 TYPE 2 DIABETES W DIABETIC PERIPHERAL AN 06/19/2019 JORGE QUIÑONES MD, Ot E11.621 TYPE 2 DIABETES MELLITUS WITH FOOT ULCER 06/19/2019 JORGE QUIÑONES MD, Ot E11.65 TYPE 2 DIABETES MELLITUS WITH HYPERGLYCE 06/19/2019 JORGE QUIÑONES MD, Ot E66.01 MORBID (SEVERE) OBESITY DUE TO EXCESS CA 06/19/2019 JORGE QUIÑONES MD, Ot I96 GANGRENE, NOT ELSEWHERE CLASSIFIED 06/19/2019 JORGE QUIÑONES MD, Ot 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 06/19/2019 JORGE QUIÑONES MD, Ot M14.672 CHARCOT'S JOINT, LEFT ANKLE AND FOOT 06/19/2019 JORGE QUIÑONES MD, Ot A52.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) 06/19/2019 JORGE QUIÑONES MD, Ot E11.42 TYPE 2 DIABETES MELLITUS WITH DIABETIC P 06/19/2019 JORGE QUIÑONES MD, Ot E11.52 TYPE 2 DIABETES W DIABETIC PERIPHERAL AN 06/19/2019 JORGE QUIÑONES MD, Ot 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 06/19/2019 JORGE QUIÑONES MD, Ot E11.621 TYPE 2 DIABETES MELLITUS WITH FOOT ULCER 06/19/2019 JORGE QUIÑONES MD, Ot E11.65 TYPE 2 DIABETES MELLITUS WITH HYPERGLYCE 06/19/2019 JORGE QUIÑONES MD, Ot E66.01 MORBID (SEVERE) OBESITY DUE TO EXCESS CA 06/19/2019 JORGE QUIÑONES MD, Ot 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 06/19/2019 JORGE QUIÑONES MD, Ot 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 06/19/2019 JORGE QUIÑONES MD, Ot E11.42 TYPE 2 DIABETES MELLITUS WITH DIABETIC P 06/19/2019 JORGE QUIÑONES MD, Ot E11.52 TYPE 2 DIABETES W DIABETIC PERIPHERAL AN 06/19/2019 JORGE QUIÑONES MD, Ot E11.621 TYPE 2 DIABETES MELLITUS WITH FOOT ULCER 06/19/2019 JORGE QUIÑONES MD, Ot E66.01 MORBID (SEVERE) OBESITY DUE TO EXCESS CA 06/19/2019 JORGE QUIÑONES MD, Ot 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 06/19/2019 JORGE QUIÑONES MD, Ot I96 GANGRENE, NOT ELSEWHERE CLASSIFIED 06/19/2019 JORGE QUIÑONES MD, Ot 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 06/19/2019 JORGE QUIÑONES MD, Ot M14.672 CHARCOT'S JOINT, LEFT ANKLE AND FOOT 06/19/2019 JORGE QUIÑONES MD, Ot E11.621 TYPE 2 DIABETES MELLITUS WITH FOOT ULCER 06/19/2019 JORGE QUIÑONES MD, Ot 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 06/19/2019 JORGE QUIÑONES MD, Ot E11.42 TYPE 2 DIABETES MELLITUS WITH DIABETIC P 06/19/2019 JORGE QUIÑONES MD, Ot E11.52 TYPE 2 DIABETES W DIABETIC PERIPHERAL AN 06/19/2019 JORGE QUIÑONES MD Ot 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 06/19/2019 JORGE QUIÑONES MD, Ot E11.621 TYPE 2 DIABETES MELLITUS WITH FOOT ULCER 06/19/2019 JORGE QUIÑONES MD, Ot E11.65 TYPE 2 DIABETES MELLITUS WITH HYPERGLYCE 06/19/2019 JORGE QUIÑONES MD, Ot E66.01 MORBID (SEVERE) OBESITY DUE TO EXCESS CA 06/19/2019 JORGE QUIÑONES MD, Ot 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 06/19/2019 JORGE QUIÑONES MD, Ot 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 06/19/2019 JORGE QUIÑONES MD, Ot E11.42 TYPE 2 DIABETES MELLITUS WITH DIABETIC P 06/19/2019 JORGE QUIÑONES MD, Ot E11.52 TYPE 2 DIABETES W DIABETIC PERIPHERAL AN 06/19/2019 JORGE QUIÑONES MD, Ot E11.621 TYPE 2 DIABETES MELLITUS WITH FOOT ULCER 06/19/2019 JORGE QUIÑONES MD, Ot E66.01 MORBID (SEVERE) OBESITY DUE TO EXCESS CA 06/19/2019 JORGE QUIÑONES MD, Ot 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 06/19/2019 JORGE QUIÑONES MD, Ot I96 GANGRENE, NOT ELSEWHERE CLASSIFIED 06/19/2019 JORGE QUIÑONES MD, Ot 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 06/19/2019 JORGE QUIÑONES MD, Ot M14.672 [place]ARCOT'S JOINT, LEFT ANKLE AND FOOT 06/19/2019 JORGE QUIÑONES MD, Ot E11.42 TYPE 2 DIABETES MELLITUS WITH DIABETIC P 06/19/2019 JORGE QUIÑONES MD, Ot E11.52 TYPE 2 DIABETES W DIABETIC PERIPHERAL AN 06/19/2019 JORGE QUIÑONES MD, Ot E11.621 TYPE 2 DIABETES MELLITUS WITH FOOT ULCER 06/19/2019 JORGE QUIÑONES MD, Ot E11.65 TYPE 2 DIABETES MELLITUS WITH HYPERGLYCE 06/19/2019 JORGE QUIÑONES MD, Ot E66.01 MORBID (SEVERE) OBESITY DUE TO EXCESS CA 06/19/2019 JORGE QUIÑONES MD, Ot 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 06/19/2019 JORGE QUIÑONES MD, Ot 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 06/19/2019 JORGE QUIÑONES MD, Ot M14.672 [place]ARCOT'S JOINT, LEFT ANKLE AND FOOT 06/19/2019 JORGE QUIÑONES MD, Ot E11.42 TYPE 2 DIABETES MELLITUS WITH DIABETIC P 06/19/2019 JORGE QUIÑONES MD, Ot E11.52 TYPE 2 DIABETES W DIABETIC PERIPHERAL AN 06/19/2019 JORGE QUIÑONES MD, Ot E11.621 TYPE 2 DIABETES MELLITUS WITH FOOT ULCER 06/19/2019 JORGE QUIÑONES MD, Ot E11.65 TYPE 2 DIABETES MELLITUS WITH HYPERGLYCE 06/19/2019 JORGE QUIÑONES MD Ot E66.01 MORBID (SEVERE) OBESITY DUE TO EXCESS CA 06/19/2019 JORGE QUIÑONES MD, Ot 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 06/19/2019 JORGE QUIÑONES MD, Ot 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 06/19/2019 JORGE QUIÑONES MD, Ot M14.672 [place]ARCOT'S JOINT, LEFT ANKLE AND FOOT 06/19/2019 JORGE QUIÑONES MD, Ot E11.42 TYPE 2 DIABETES MELLITUS WITH DIABETIC P 06/19/2019 JORGE QUIÑONES MD, Ot E11.52 TYPE 2 DIABETES W DIABETIC PERIPHERAL AN 06/19/2019 JORGE QUIÑONES MD, Ot E11.621 TYPE 2 DIABETES MELLITUS WITH FOOT ULCER 06/19/2019 JORGE QUIÑONES MD, Ot E11.65 TYPE 2 DIABETES MELLITUS WITH HYPERGLYCE 06/19/2019 JORGE QUIÑONES MD Ot E66.01 MORBID (SEVERE) OBESITY DUE TO EXCESS CA 06/19/2019 JORGE QUIÑONES MD Ot 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 06/19/2019 JORGE QUIÑONES MD Ot 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 06/19/2019 JORGE QUIÑONES MD Ot M14.672 [place]ARCOT'[place] JOINT, LEFT ANKLE AND FOOT 06/19/2019 JORGE QUIÑONES MD, Ot E11.42 TYPE 2 DIABETES MELLITUS WITH DIABETIC P 06/19/2019 JORGE QUIÑONES MD, Ot E11.52 TYPE 2 DIABETES W DIABETIC PERIPHERAL AN 06/19/2019 JORGE QUIÑONES MD, Ot E11.621 TYPE 2 DIABETES MELLITUS WITH FOOT ULCER 06/19/2019 JORGE QUIÑONES MD, Ot E11.65 TYPE 2 DIABETES MELLITUS WITH HYPERGLYCE 06/19/2019 JORGE QUIÑONES MD Ot E66.01 MORBID (SEVERE) OBESITY DUE TO EXCESS CA 06/19/2019 JORGE QUIÑONES MD Ot 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 06/19/2019 JORGE QUIÑONES MD, Ot 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 06/19/2019 JORGE QUIÑONES MD, Ot M14.672 [place]ARCOT'S JOINT, LEFT ANKLE AND FOOT 06/20/2019 SHAVONNE PATRICK MD Ot C32. 9 MALIGNANT NEOPLASM OF [place], UNSPECIFIE 06/20/2019 SHAVONNE PATRICK MD, Ot E11. 51 TYPE 2 DIABETES W DIABETIC PERIPHERAL AN 06/20/2019 SHAVONNE PATRICK MD Ot E86. 0 DEHYDRATION 06/20/2019 SHAVONNE PATRICK MD, Ot F41. 9 ANXIETY DISORDER, UNSPECIFIED 06/20/2019 SHAVONNE PATRICK MD Ot G89. 29 OTHER CHRONIC PAIN 06/20/2019 SHAVONNE PATRICK MD, Ot G89. 3 NEOPLASM RELATED PAIN (ACUTE) (CHRONIC) 06/20/2019 SHAVONNE PATRICK MD Ot I10 ESSENTIAL (PRIMARY) HYPERTENSION 06/20/2019 SHAVONNE PATRICK MD, Ot I25. 10 ATHSCL HEART DISEASE OF [place] CORONARY 06/20/2019 SHAVONNE PATRICK MD, Ot K59. 09 OTHER CONSTIPATION 06/20/2019 SHAVONNE PATRICK MD, Ot M54. 9 DORSALGIA, UNSPECIFIED 06/20/2019 SHAVONNE PATRICK MD Ot N19 UNSPECIFIED KIDNEY FAILURE 06/20/2019 SHAVONNE PATRICK MD, Ot N39. 0 URINARY TRACT INFECTION, SITE NOT SPECIF 06/20/2019 SHAVONNE PATRICK MD, Ot R13. 10 DYSPHAGIA, UNSPECIFIED 06/20/2019 SHAVONNE PATRICK MD, Ot T45.1X5A ADVERSE EFFECT OF ANTINEOPLASTIC AND IMM 06/20/2019 SHAVONNE PATRICK MD, Ot Z30. 9 ENCOUNTER FOR CONTRACEPTIVE MANAGEMENT, 06/20/2019 SHAVONNE PATRICK MD Ot Z79. 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 8 FAMILY HISTORY OF MALIGNANT NEOPLASM OF 06/20/2019 SHAVONNE PATRICK MD Ot Z82. 49 FAMILY HX OF ISCHEM HEART DIS AND OTH DI 06/20/2019 SHAVONNE PATRICK MD Ot Z83. 3 FAMILY HISTORY OF DIABETES MELLITUS 06/20/2019 SHAVONNE PATRICK MD Ot Z90.710 ACQUIRED ABSENCE OF BOTH CERVIX AND UTER 06/20/2019 SHAVONNE PATRICK MD Ot Z90. 89 ACQUIRED ABSENCE OF OTHER ORGANS 06/20/2019 SHAVONNE PATRICK MD Ot Z91.048 OTHER NONMEDICINAL SUBSTANCE ALLERGY STA 06/20/2019 SHAVONNE PATRICK MD, Ot C32. 9 MALIGNANT NEOPLASM OF [place], UNSPECIFIE 06/20/2019 SHAVONNE PATRICK MD Ot E11. 51 TYPE 2 DIABETES W DIABETIC PERIPHERAL AN 06/20/2019 SHAVONNE PATRICK MD Ot E86. 0 DEHYDRATION 06/20/2019 SHAVONNE PATRICK MD, Ot F41. 9 ANXIETY DISORDER, UNSPECIFIED 06/20/2019 SHAVONNE PATRICK MD Ot G89. 29 OTHER CHRONIC PAIN 06/20/2019 SHAVONNE PATRICK MD, Ot G89. 3 NEOPLASM RELATED PAIN (ACUTE) (CHRONIC) 06/20/2019 SHAVONNE PATRICK MD Ot I10 ESSENTIAL (PRIMARY) HYPERTENSION 06/20/2019 SHAVONNE PATRICK MD, Ot I25. 10 ATHSCL HEART DISEASE OF [place] CORONARY 06/20/2019 SHAVONNE PATRICK MD, Ot K59. 09 OTHER CONSTIPATION 06/20/2019 SHAVONNE PATRICK MD, Ot M54. 9 DORSALGIA, UNSPECIFIED 06/20/2019 SHAVONNE PATRICK MD, Ot N19 UNSPECIFIED KIDNEY FAILURE 06/20/2019 SHAVONNE PATRICK MD, Ot N39. 0 URINARY TRACT INFECTION, SITE NOT SPECIF 06/20/2019 SHAVONNE PATRICK MD Ot R13. 10 DYSPHAGIA, UNSPECIFIED 06/20/2019 SHAVONNE PATRICK MD, Ot T45.1X5A ADVERSE EFFECT OF ANTINEOPLASTIC AND IMM 06/20/2019 SHAVONNE PATRICK MD Ot Z30. 9 ENCOUNTER FOR CONTRACEPTIVE MANAGEMENT, 06/20/2019 SHAVONNE PATRICK MD Ot Z79. 82 FPC (CURRENT) USE OF ASPIRIN 06/20/2019 SHAVONNE PATRICK MD Ot Z79.891 PEN AND PENCIL REPAIRER (CURRENT) USE OF OPIATE ANALGE 06/20/2019 SHAVONNE PATRICK MD, Ot Z79.899 OTHER PEN AND PENCIL REPAIRER (CURRENT) DRUG THERAPY 06/20/2019 SHAVONNE PATRICK MD Ot Z80. 8 FAMILY HISTORY OF MALIGNANT NEOPLASM OF 06/20/2019 SHAVONNE PATRICK MD, Ot Z82. 49 FAMILY HX OF ISCHEM HEART DIS AND OTH DI 06/20/2019 SHAVONNE PATRICK MD Ot Z83. 3 FAMILY HISTORY OF DIABETES MELLITUS 06/20/2019 SHAVONNE PATRICK MD Ot Z90.710 ACQUIRED ABSENCE OF BOTH CERVIX AND UTER 06/20/2019 SHAVONNE PATRICK MD Ot Z90. 89 ACQUIRED ABSENCE OF OTHER ORGANS 06/20/2019 SHAVONNE PATRICK MD Ot Z91.048 OTHER NONMEDICINAL SUBSTANCE ALLERGY STA 06/23/2019 JORGE QUIÑONES MD, Ot E11.42 TYPE 2 DIABETES MELLITUS WITH DIABETIC P 06/23/2019 JORGE QUIÑONES MD, Ot E11.52 TYPE 2 DIABETES W DIABETIC PERIPHERAL AN 06/23/2019 JORGE QUIÑONES MD, Ot E11.621 TYPE 2 DIABETES MELLITUS WITH FOOT ULCER 06/23/2019 JORGE QUIÑONES MD, Ot E11.65 TYPE 2 DIABETES MELLITUS WITH HYPERGLYCE 06/23/2019 JORGE QUIÑONES MD Ot E66.01 MORBID (SEVERE) OBESITY DUE TO EXCESS CA 06/23/2019 JORGE QUIÑONES MD, Ot 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 06/23/2019 JORGE QUIÑONES MD, Ot 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 06/23/2019 JORGE QUIÑONES MD, Ot M14.672 [place]ARC[place] JOINT, LEFT ANKLE AND FOOT 07/04/2019 JORGE QUIÑONES MD, Ot E11.42 TYPE 2 DIABETES MELLITUS WITH DIABETIC P 07/04/2019 JORGE QUIÑONES MD, Ot E11.52 TYPE 2 DIABETES W DIABETIC PERIPHERAL AN 07/04/2019 JORGE QUIÑONES MD, Ot E11.621 TYPE 2 DIABETES MELLITUS WITH FOOT ULCER 07/04/2019 JORGE QUIÑONES MD, Ot E11.65 TYPE 2 DIABETES MELLITUS WITH HYPERGLYCE 07/04/2019 JROGE QUIÑONES MD, Ot E66.01 MORBID (SEVERE) OBESITY DUE TO EXCESS CA 07/04/2019 JORGE QUIÑONES MD, Ot 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 07/04/2019 JORGE QUIÑONES MD, Ot 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 07/04/2019 JORGE QUIÑONES MD, Ot M14.672 CHARCOT'S JOINT, LEFT ANKLE AND FOOT 07/11/2019 JORGE QUIÑONES MD, Ot E11.42 TYPE 2 DIABETES MELLITUS WITH DIABETIC P 07/11/2019 JORGE QUIÑONES MD, Ot E11.52 TYPE 2 DIABETES W DIABETIC PERIPHERAL AN 07/11/2019 JORGE QUIÑONES MD, Ot E11.621 TYPE 2 DIABETES MELLITUS WITH FOOT ULCER 07/11/2019 JORGE QUIÑONES MD, Ot E44 .1 MILD PROTEIN-CALORIE MALNUTRITION 07/11/2019 JORGE QUIÑONES MD, Ot E66.01 MORBID (SEVERE) OBESITY DUE TO EXCESS CA 07/11/2019 JORGE QUIÑONES MD, Ot 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 07/11/2019 JORGE QUIÑONES MD, Ot M14.672 CHARCOT'S JOINT, LEFT ANKLE AND FOOT 07/12/2019 JORGE QUIÑONES MD, Ot E11.42 TYPE 2 DIABETES MELLITUS WITH DIABETIC P 07/12/2019 JORGE QUIÑONES MD, Ot E11.52 TYPE 2 DIABETES W DIABETIC PERIPHERAL AN 07/12/2019 JORGE QUIÑONES MD, Ot E11.621 TYPE 2 DIABETES MELLITUS WITH FOOT ULCER 07/12/2019 JORGE QUIÑONES MD, Ot E11.65 TYPE 2 DIABETES MELLITUS WITH HYPERGLYCE 07/12/2019 JORGE QUIÑONES MD, Ot E66.01 MORBID (SEVERE) OBESITY DUE TO EXCESS CA 07/12/2019 JORGE QUIÑONES MD, Ot 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 07/12/2019 JORGE QUIÑONES MD, Ot 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 07/12/2019 JORGE QUIÑONES MD, Ot M14.672 CHARCOT'S JOINT, LEFT ANKLE AND FOOT 07/13/2019 JORGE QUIÑONES MD, Ot E11.42 TYPE 2 DIABETES MELLITUS WITH DIABETIC P 07/13/2019 JORGE QUIÑONES MD, Ot E11.52 TYPE 2 DIABETES W DIABETIC PERIPHERAL AN 07/13/2019 JORGE QUIÑONES MD, Ot E11.621 TYPE 2 DIABETES MELLITUS WITH FOOT ULCER 07/13/2019 JORGE UQIÑONES MD Ot E44 .1 MILD PROTEIN-[place] MALNUTRITION 07/13/2019 JORGE QUIÑONES MD, Ot E66.01 MORBID (SEVERE) OBESITY DUE TO EXCESS CA 07/13/2019 JORGE QUIÑONES MD, Ot 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 07/13/2019 JORGE QUIÑONES MD, Ot M14.672 CHARCOT'S JOINT, LEFT ANKLE AND FOOT 07/17/2019 JORGE QUIÑONES MD, Ot E11.42 TYPE 2 DIABETES MELLITUS WITH DIABETIC P 07/17/2019 JORGE QUIÑONES MD, Ot E11.621 TYPE 2 DIABETES MELLITUS WITH FOOT ULCER 07/17/2019 JORGE QUIÑONES MD, Ot E11.65 TYPE 2 DIABETES MELLITUS WITH HYPERGLYCE 07/17/2019 JORGE QUIÑONES MD, Ot E66.01 MORBID (SEVERE) OBESITY DUE TO EXCESS CA 07/17/2019 JORGE QUIÑONES MD, Ot 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 07/17/2019 JORGE QUIÑONES MD, Ot M14.672 CHARCOT'S JOINT, LEFT ANKLE AND FOOT 07/17/2019 JORGE QUIÑONES MD, Ot E11.42 TYPE 2 DIABETES MELLITUS WITH DIABETIC P 07/17/2019 JORGE QUIÑONES MD, Ot E11.52 TYPE 2 DIABETES W DIABETIC PERIPHERAL AN 07/17/2019 JORGE QUIÑONES MD, Ot E11.621 TYPE 2 DIABETES MELLITUS WITH FOOT ULCER 07/17/2019 JORGE QUIÑONES MD, Ot E11.65 TYPE 2 DIABETES MELLITUS WITH HYPERGLYCE 07/17/2019 JORGE QUIÑONES MD, Ot E66.01 MORBID (SEVERE) OBESITY DUE TO EXCESS CA 07/17/2019 JORGE QUIÑONES MD, Ot I96 GANGR[place], NOT ELSEWHERE CLASSIFIED 07/17/2019 JORGE QUIÑONES MD, Ot 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 07/17/2019 JORGE QUIÑONES MD, Ot M14.672 CHARCOT'S JOINT, LEFT ANKLE AND FOOT 07/17/2019 JORGE QUIÑONES MD, Ot 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.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) 07/17/2019 JORGE QUIÑONES MD, Ot E11.42 TYPE 2 DIABETES MELLITUS WITH DIABETIC P 07/17/2019 JORGE QUIÑONES MD, Ot E11.52 TYPE 2 DIABETES W DIABETIC PERIPHERAL AN 07/17/2019 JORGE QUIÑONES MD, Ot 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 07/17/2019 JORGE QUIÑONES MD, Ot E11.621 TYPE 2 DIABETES MELLITUS WITH FOOT ULCER 07/17/2019 JORGE QUIÑONES MD, Ot E11.65 TYPE 2 DIABETES MELLITUS WITH HYPERGLYCE 07/17/2019 JORGE QUIÑONES MD, Ot E66.01 MORBID (SEVERE) OBESITY DUE TO EXCESS CA 07/17/2019 JORGE QUIÑONES MD, Ot 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 07/17/2019 JORGE QUIÑONES MD, Ot 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 07/17/2019 JORGE QUIÑONES MD, Ot E11.42 TYPE 2 DIABETES MELLITUS WITH DIABETIC P 07/17/2019 ISHMAEL MD, JORGE G Ot E11.52 TYPE 2 DIABETES W DIABETIC PERIPHERAL AN 07/17/2019 JORGE QUIÑONES MD, Ot E11.621 TYPE 2 DIABETES MELLITUS WITH FOOT ULCER 07/17/2019 JORGE QUIÑONES MD, Ot E66.01 MORBID (SEVERE) OBESITY DUE TO EXCESS CA 07/17/2019 JORGE QUIÑONES MD, Ot 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 07/17/2019 JORGE QUIÑONES MD, Ot I96 GANGRENE, NOT ELSEWHERE CLASSIFIED 07/17/2019 JORGE QUIÑONES MD, Ot 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 07/17/2019 JORGE QUIÑONES MD, Ot M14.672 CHARCOT'S JOINT, LEFT ANKLE AND FOOT 07/17/2019 JORGE QUIÑONES MD, Ot E11.42 TYPE 2 DIABETES MELLITUS WITH DIABETIC P 07/17/2019 JORGE QUIÑONES MD, Ot E11.52 TYPE 2 DIABETES W DIABETIC PERIPHERAL AN 07/17/2019 JORGE QUIÑONES MD, Ot 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 07/17/2019 JORGE QUIÑONES MD, Ot E11.621 TYPE 2 DIABETES MELLITUS WITH FOOT ULCER 07/17/2019 JORGE QUIÑONES MD, Ot E11.65 TYPE 2 DIABETES MELLITUS WITH HYPERGLYCE 07/17/2019 JORGE QUIÑONES MD, Ot E66.01 MORBID (SEVERE) OBESITY DUE TO EXCESS CA 07/17/2019 JORGE QUIÑONES MD Ot 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 07/17/2019 JORGE QUIÑONES MD, Ot 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 07/17/2019 JORGE QUIÑONES MD, Ot E11.42 TYPE 2 DIABETES MELLITUS WITH DIABETIC P 07/17/2019 JORGE QUIÑONES MD, Ot E11.52 TYPE 2 DIABETES W DIABETIC PERIPHERAL AN 07/17/2019 JORGE QUIÑONES MD, Ot 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 07/17/2019 JORGE QUIÑONES MD, Ot E11.621 TYPE 2 DIABETES MELLITUS WITH FOOT ULCER 07/17/2019 JORGE QUIÑONES MD, Ot E11.65 TYPE 2 DIABETES MELLITUS WITH HYPERGLYCE 07/17/2019 JORGE QUIÑONES MD Ot E66.01 MORBID (SEVERE) OBESITY DUE TO EXCESS CA 07/17/2019 JORGE QUIÑONES MD Ot 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 07/17/2019 JORGE QUIÑONES MD, Ot 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 07/25/2019 JORGE QUIÑONES MD, Ot E11.42 TYPE 2 DIABETES MELLITUS WITH DIABETIC P 07/25/2019 JORGE QUIÑONES MD, Ot E11.52 TYPE 2 DIABETES W DIABETIC PERIPHERAL AN 07/25/2019 JORGE QUIÑONES MD, Ot E11.621 TYPE 2 DIABETES MELLITUS WITH FOOT ULCER 07/25/2019 JORGE QUIÑONES MD, Ot E11.65 TYPE 2 DIABETES MELLITUS WITH HYPERGLYCE 07/25/2019 JORGE QUIÑONES MD, Ot E66.01 MORBID (SEVERE) OBESITY DUE TO EXCESS CA 07/25/2019 JORGE QUIÑONES MD, Ot 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 07/25/2019 JORGE QUIÑONES MD, Ot 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 07/25/2019 JORGE QUIÑONES MD, Ot M14.672 CHARCOT'S JOINT, LEFT ANKLE AND FOOT 07/31/2019 JORGE QUIÑONES MD, Ot E11.42 TYPE 2 DIABETES MELLITUS WITH DIABETIC P 07/31/2019 JORGE QUIÑONES MD, Ot E11.621 TYPE 2 DIABETES MELLITUS WITH FOOT ULCER 07/31/2019 JORGE QUIÑONES MD, Ot E44 .1 MILD PROTEIN-CALORIE MALNUTRITION 07/31/2019 JORGE QUIÑONES MD, Ot E66.01 MORBID (SEVERE) OBESITY DUE TO EXCESS CA 07/31/2019 JORGE QUIÑONES MD, Ot 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 07/31/2019 JORGE QUIÑONES MD, Ot M14.672 CHARCOT'S JOINT, LEFT ANKLE AND FOOT 08/01/2019 JORGE QUIÑONES MD, Ot E11.42 TYPE 2 DIABETES MELLITUS WITH DIABETIC P 08/01/2019 JORGE QUIÑONES MD, Ot E11.52 TYPE 2 DIABETES W DIABETIC PERIPHERAL AN 08/01/2019 JORGE QUIÑONES MD, Ot E11.621 TYPE 2 DIABETES MELLITUS WITH FOOT ULCER 08/01/2019 JORGE QUIÑONES MD, Ot E44 .1 MILD PROTEIN-CALORIE MALNUTRITION 08/01/2019 JORGE QUIÑONES MD, Ot E66.01 MORBID (SEVERE) OBESITY DUE TO EXCESS CA 08/01/2019 JORGE QUIÑONES MD, Ot 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 08/01/2019 JORGE QUIÑONES MD, Ot M14.672 CHARCOT'S JOINT, LEFT ANKLE AND FOOT 08/02/2019 JORGE QUIÑONES MD, Ot E11.42 TYPE 2 DIABETES MELLITUS WITH DIABETIC P 08/02/2019 JORGE QUIÑONES MD, Ot E11.621 TYPE 2 DIABETES MELLITUS WITH FOOT ULCER 08/02/2019 JORGE QUIÑONES MD, Ot E44 .1 MILD PROTEIN-CALORIE MALNUTRITION 08/02/2019 JORGE QUÑIONES MD, Ot E66.01 MORBID (SEVERE) OBESITY DUE TO EXCESS CA 08/02/2019 JORGE QUIÑONES MD, Ot 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 08/02/2019 JORGE QUIÑONES MD, Ot M14.672 CHARCOT'S JOINT, LEFT ANKLE AND FOOT 08/02/2019 JORGE QUIÑONES MD, Ot E11.42 TYPE 2 DIABETES MELLITUS WITH DIABETIC P 08/02/2019 JORGE QUIÑONES MD, Ot E11.621 TYPE 2 DIABETES MELLITUS WITH FOOT ULCER 08/02/2019 JORGE QUIÑONES MD, Ot E44 .1 MILD PROTEIN-CALORIE MALNUTRITION 08/02/2019 JORGE QUIÑONES MD, Ot E66.01 MORBID (SEVERE) OBESITY DUE TO EXCESS CA 08/02/2019 JORGE QUIÑONES MD, Ot 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 08/02/2019 JORGE QUIÑONES MD, Ot M14.672 CHARCOT'S JOINT, LEFT ANKLE AND FOOT 08/11/2019 JORGE QUIÑONES MD, Ot E11.42 TYPE 2 DIABETES MELLITUS WITH DIABETIC P 08/11/2019 JORGE QUIÑONES MD, Ot E11.52 TYPE 2 DIABETES W DIABETIC PERIPHERAL AN 08/11/2019 JORGE QUIÑONES MD, Ot 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 08/11/2019 JORGE QUIÑONES MD, Ot E11.621 TYPE 2 DIABETES MELLITUS WITH FOOT ULCER 08/11/2019 JORGE QUIÑONES MD, Ot E44 .1 MILD PROTEIN-CALORIE MALNUTRITION 08/11/2019 JORGE QUIÑONES MD, Ot E66.01 MORBID (SEVERE) OBESITY DUE TO EXCESS CA 08/11/2019 JORGE QUIÑONES MD Ot I96 GANGRENE, NOT ELSEWHERE CLASSIFIED 08/11/2019 JORGE QUIÑONES MD, Ot 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 08/12/2019 JORGE QUIÑONES MD, Ot A52.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) 08/12/2019 JORGE QUIÑONES MD, Ot E11.42 TYPE 2 DIABETES MELLITUS WITH DIABETIC P 08/12/2019 JORGE QUIÑONES MD, Ot E11.52 TYPE 2 DIABETES W DIABETIC PERIPHERAL AN 08/12/2019 JORGE QUIÑONES MD, Ot 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 08/12/2019 JORGE QUIÑONES MD, Ot E11.621 TYPE 2 DIABETES MELLITUS WITH FOOT ULCER 08/12/2019 JORGE QUIÑONES MD, Ot E44 .1 MILD PROTEIN-CALORIE MALNUTRITION 08/12/2019 JORGE QUIÑONES MD, Ot E66.01 MORBID (SEVERE) OBESITY DUE TO EXCESS CA 08/12/2019 JORGE QUIÑONES MD, Ot I96 GANGR[place], NOT ELSEWHERE CLASSIFIED 08/12/2019 JORGE QUIÑONES MD, Ot 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 08/14/2019 JORGE QUIÑONES MD, Ot A52.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) 08/14/2019 JORGE QUIÑONES MD, Ot E11.42 TYPE 2 DIABETES MELLITUS WITH DIABETIC P 08/14/2019 JORGE QUIÑONES MD, Ot E11.52 TYPE 2 DIABETES W DIABETIC PERIPHERAL AN 08/14/2019 JORGE QUIÑONES MD, Ot 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 08/14/2019 JORGE QUIÑONES MD, Ot E11.621 TYPE 2 DIABETES MELLITUS WITH FOOT ULCER 08/14/2019 JORGE QUIÑONES MD, Ot E44 .1 MILD PROTEIN-CALORIE MALNUTRITION 08/14/2019 JORGE QUIÑONES MD Ot E66.01 MORBID (SEVERE) OBESITY DUE TO EXCESS CA 08/14/2019 JORGE QUIÑONES MD, Ot I96 GANGRENE, NOT ELSEWHERE CLASSIFIED 08/14/2019 JORGE QUIÑONES MD, Ot 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 08/21/2019 JORGE QUIÑONES MD, Ot E11.42 TYPE 2 DIABETES MELLITUS WITH DIABETIC P 08/21/2019 JORGE QUIÑONES MD, Ot E11.52 TYPE 2 DIABETES W DIABETIC PERIPHERAL AN 08/21/2019 JORGE QUIÑONES MD, Ot E11.621 TYPE 2 DIABETES MELLITUS WITH FOOT ULCER 08/21/2019 JORGE QUIÑONES MD, Ot E44 .1 MILD PROTEIN-CALORIE MALNUTRITION 08/21/2019 JORGE QUIÑONES MD, Ot E66.01 MORBID (SEVERE) OBESITY DUE TO EXCESS CA 08/21/2019 JORGE QUIÑONES MD, Ot 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 08/21/2019 JORGE QUIÑONES MD, Ot M14.672 CHARCOT'S JOINT, LEFT ANKLE AND FOOT 08/25/2019 JORGE QUIÑONES MD, Ot E11.42 TYPE 2 DIABETES MELLITUS WITH DIABETIC P 08/25/2019 JORGE QUIÑONES MD, Ot E11.621 TYPE 2 DIABETES MELLITUS WITH FOOT ULCER 08/25/2019 JORGE QUIÑONES MD, Ot E44 .1 MILD PROTEIN-CALORIE MALNUTRITION 08/25/2019 JORGE QUIÑONES MD, Ot E66.01 MORBID (SEVERE) OBESITY DUE TO EXCESS CA 08/25/2019 JORGE QUIÑONES MD, Ot 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 08/25/2019 JORGE QUIÑONES MD, Ot M14.672 CHARCOT'S JOINT, LEFT ANKLE AND FOOT 08/28/2019 JORGE QUIÑONES MD, Ot E11.42 TYPE 2 DIABETES MELLITUS WITH DIABETIC P 08/28/2019 JORGE QUIÑONES MD Ot E11.52 TYPE 2 DIABETES W DIABETIC PERIPHERAL AN 08/28/2019 JORGE QUIÑONES MD, Ot E11.621 TYPE 2 DIABETES MELLITUS WITH FOOT ULCER 08/28/2019 JORGE QUIÑONES MD, Ot E44 .1 MILD PROTEIN-CALORIE MALNUTRITION 08/28/2019 JORGE QUIÑONES MD, Ot E66.01 MORBID (SEVERE) OBESITY DUE TO EXCESS CA 08/28/2019 JORGE QUIÑONES MD, Ot 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 08/28/2019 JORGE QUIÑONES MD, Ot M14.672 CHARCOT'S JOINT, LEFT ANKLE AND FOOT 08/28/2019 JORGE QUIÑONES MD, Ot E11.42 TYPE 2 DIABETES MELLITUS WITH DIABETIC P 08/28/2019 JORGE QUIÑONES MD, Ot E11.621 TYPE 2 DIABETES MELLITUS WITH FOOT ULCER 08/28/2019 JORGE QUIÑONES MD, Ot E66.01 MORBID (SEVERE) OBESITY DUE TO EXCESS CA 08/28/2019 JORGE QUIÑONES MD, Ot 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 08/28/2019 JORGE QUIÑONES MD, Ot M14.672 CHARCOT'S JOINT, LEFT ANKLE AND FOOT 08/29/2019 JORGE QUIÑONES MD, Ot E11.42 TYPE 2 DIABETES MELLITUS WITH DIABETIC P 08/29/2019 JORGE QUIÑONES MD, Ot E11.52 TYPE 2 DIABETES W DIABETIC PERIPHERAL AN 08/29/2019 JORGE QUIÑONES MD, Ot 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 08/29/2019 JORGE QUIÑONES MD, Ot E11.621 TYPE 2 DIABETES MELLITUS WITH FOOT ULCER 08/29/2019 JORGE QUIÑONES MD, Ot E44 .1 MILD PROTEIN-CALORIE MALNUTRITION 08/29/2019 JORGE QUIÑONES MD, Ot E66.01 MORBID (SEVERE) OBESITY DUE TO EXCESS CA 08/29/2019 JORGE QUIÑONES MD, Ot I96 GANGRENE, NOT ELSEWHERE CLASSIFIED 08/29/2019 JORGE QUIÑONES MD, Ot 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 08/29/2019 JORGE QUIÑONES MD, Ot E46 UNSPECIFIED PROTEIN-CALORIE MALNUTRITION 08/29/2019 JORGE QUIÑONES MD, Ot A52.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) 08/29/2019 JORGE QUIÑONES MD, Ot E11.42 TYPE 2 DIABETES MELLITUS WITH DIABETIC P 08/29/2019 JORGE QUIÑONES MD, Ot E11.52 TYPE 2 DIABETES W DIABETIC PERIPHERAL AN 08/29/2019 JORGE QUIÑONES MD, Ot 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 08/29/2019 JORGE QUIÑONES MD, Ot E11.621 TYPE 2 DIABETES MELLITUS WITH FOOT ULCER 08/29/2019 JORGE QUIÑONES MD, Ot E44 .1 MILD PROTEIN-CALORIE MALNUTRITION 08/29/2019 JORGE QUIÑONES MD, Ot E66.01 MORBID (SEVERE) OBESITY DUE TO EXCESS CA 08/29/2019 JORGE QUIÑONES MD, Ot I96 GANGRENE, NOT ELSEWHERE CLASSIFIED 08/29/2019 JORGE QUIÑONES MD, Ot 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 08/29/2019 JORGE QUIÑONES MD, Ot E11.42 TYPE 2 DIABETES MELLITUS WITH DIABETIC P 08/29/2019 JORGE QUIÑONES MD, Ot E11.52 TYPE 2 DIABETES W DIABETIC PERIPHERAL AN 08/29/2019 JORGE QUIÑONES MD Ot E11.621 TYPE 2 DIABETES MELLITUS WITH FOOT ULCER 08/29/2019 JORGE QUIÑONES MD, Ot E44 .1 MILD PROTEIN-CALORIE MALNUTRITION 08/29/2019 OJRGE QUIÑONES MD Ot E66.01 MORBID (SEVERE) OBESITY DUE TO EXCESS CA 08/29/2019 JORGE QUIÑONES MD Ot L97.412 NON-PRS CHR ULCER OF RIGHT HEEL AND MIDF 08/29/2019 JORGE QUIÑONES MD, Ot M14.672 CHARCOT'S JOINT, LEFT ANKLE AND FOOT 09/11/2019 JOSI RAGSDALE MD, Ot A52.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) 09/11/2019 JOSI RAGSDALE MD, Ot E11.42 TYPE 2 DIABETES MELLITUS WITH DIABETIC P 09/11/2019 JOSI RAGSDALE MD, Ot E11.52 TYPE 2 DIABETES W DIABETIC PERIPHERAL AN 09/11/2019 JOSI RAGSDALE MD, Ot E11.621 TYPE 2 DIABETES MELLITUS WITH FOOT ULCER 09/11/2019 JOSI RAGSDALE MD, Ot E66.01 MORBID (SEVERE) OBESITY DUE TO EXCESS CA 09/11/2019 JOSI RAGSDALE MD Ot I96 GANGRENE, NOT ELSEWHERE CLASSIFIED 09/11/2019 JOSI RAGSDALE MD, Ot L97.422 NON- PRS 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 09/11/2019 JORGE QUIÑONES MD, Ot E11.42 TYPE 2 DIABETES MELLITUS WITH DIABETIC P 09/11/2019 JORGE QUIÑONES MD, Ot E11.52 TYPE 2 DIABETES W DIABETIC PERIPHERAL AN 09/11/2019 JORGE QUIÑONES MD Ot E11.621 TYPE 2 DIABETES MELLITUS WITH FOOT ULCER 09/11/2019 JORGE QUIÑONES MD Ot E44 .1 MILD PROTEIN-CALORIE MALNUTRITION 09/11/2019 JORGE QUIÑONES MD Ot E66.01 MORBID (SEVERE) OBESITY DUE TO EXCESS CA 09/11/2019 JORGE QUIÑONES MD Ot 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 09/11/2019 JORGE QUIÑONES MD, Ot M14.672 CHARCOT'S JOINT, LEFT ANKLE AND FOOT 09/14/2019 JOSI RAGSDALE MD Ot A52.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) 09/14/2019 JOSI RAGSDALE MD, Ot E11.42 TYPE 2 DIABETES MELLITUS WITH DIABETIC P 09/14/2019 JOSI RAGSDALE MD, Ot E11.52 TYPE 2 DIABETES W DIABETIC PERIPHERAL AN 09/14/2019 JOSI RAGSDALE MD, Ot 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 09/14/2019 JOSI RAGSDALE MD, Ot E11.621 TYPE 2 DIABETES MELLITUS WITH FOOT ULCER 09/14/2019 JOSI RAGSDALE MD, Ot E66.01 MORBID (SEVERE) OBESITY DUE TO EXCESS CA 09/14/2019 JOSI RAGSDALE MD, Ot I96 GANGRENE, NOT ELSEWHERE CLASSIFIED 09/14/2019 JOSI RAGSDALE MD, Ot L97.422 NON- PRS 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 09/14/2019 JOSI RAGSDALE MD, Ot Z68.38 BODY MASS INDEX (BMI) 38.0-38.9, ADULT 09/15/2019 JORGE QUIÑONES MD, Ot E11.42 TYPE 2 DIABETES MELLITUS WITH DIABETIC P 09/15/2019 JORGE QUIÑONES MD, Ot E11.621 TYPE 2 DIABETES MELLITUS WITH FOOT ULCER 09/15/2019 JORGE QUIÑONES MD, Ot E66.01 MORBID (SEVERE) OBESITY DUE TO EXCESS CA 09/15/2019 JORGE QUIÑONES MD, Ot 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 09/15/2019 JORGE QUIÑONES MD, Ot M14.672 CHARCOT'S JOINT, LEFT ANKLE AND FOOT 09/15/2019 JOSI RAGSDALE MD, Ot E11.42 TYPE 2 DIABETES MELLITUS WITH DIABETIC P 09/15/2019 JOIS RAGSDALE MD, Ot E11.621 TYPE 2 DIABETES MELLITUS WITH FOOT ULCER 09/15/2019 JOSI RAGSDALE MD, Ot E44.1 MILD PROTEIN-CALORIE MALNUTRITION 09/15/2019 JOSI RAGSDALE MD, Ot E66.01 MORBID (SEVERE) OBESITY DUE TO EXCESS CA 09/15/2019 JOSI RAGSDALE MD, Ot L97.422 NON- PRS 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 09/20/2019 JOSI RAGSDALE MD, Ot E11.42 TYPE 2 DIABETES MELLITUS WITH DIABETIC P 09/20/2019 JOSI RAGSDALE MD, Ot E11.621 TYPE 2 DIABETES MELLITUS WITH FOOT ULCER 09/20/2019 JOSI RAGSDALE MD, Ot E66.01 MORBID (SEVERE) OBESITY DUE TO EXCESS CA 09/20/2019 JOSI RAGSDALE MD, Ot L97.422 NON- PRS 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 09/20/2019 LO JOSI MARTINEZ Ot M14.672 CHARCOT'S JOINT, LEFT ANKLE AND FOOT 09/25/2019 LO JOSI MARTINEZ Ot E11.42 TYPE 2 DIABETES MELLITUS WITH DIABETIC P 09/25/2019 JOSI RAGSDALE MD, Ot E11.621 TYPE 2 DIABETES MELLITUS WITH FOOT ULCER 09/25/2019 JOSI RAGSDALE MD, Ot E66.01 MORBID (SEVERE) OBESITY DUE TO EXCESS CA 09/25/2019 JOSI RAGSDALE MD, Ot L97.422 NON- PRS 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 09/25/2019 JOSI RAGSDALE MD, Ot M14.672 CHARCOT'S JOINT, LEFT ANKLE AND FOOT 09/27/2019 JOSI RAGSDALE MD, Ot B95.8 UNSP STAPHYLOCOCCUS THE CAUSE OF DISE 09/27/2019 LO JOSI MARTINEZ Ot.42 TYPE 2 DIABETES MELLITUS WITH DIABETIC P 09/27/2019 JOSI RAGSDALE MD, Ot E11.621 TYPE 2 DIABETES MELLITUS WITH FOOT ULCER 09/27/2019 JOSI RAGSDALE MD, Ot E66.01 MORBID (SEVERE) OBESITY DUE TO EXCESS CA 09/27/2019 JOSI RAGSDALE MD, Ot L97.422 NON- PRS 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 09/27/2019 JOSI RAGSDALE MD, Ot M14.672 CHARCOT'S JOINT, LEFT ANKLE AND FOOT 09/29/2019 JOSI RAGSDALE MD, Ot E11.42 TYPE 2 DIABETES MELLITUS WITH DIABETIC P 09/29/2019 JOSI RAGSDALE MD, Ot E11.621 TYPE 2 DIABETES MELLITUS WITH FOOT ULCER 09/29/2019 JOSI RAGSDALE MD, Ot E66.01 MORBID (SEVERE) OBESITY DUE TO EXCESS CA 09/29/2019 JOSI RAGSDALE MD, Ot L97.422 NON- PRS 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 09/29/2019 JOSI RAGSDALE MD, Ot M14.672 CHARCOT'S JOINT, LEFT ANKLE AND FOOT 10/02/2019 JOSI RAGSDALE MD, Ot B95.8 UNSP STAPHYLOCOCCUS THE CAUSE OF DISE 10/02/2019 JOSI RAGSDALE MD, Ot E11.42 TYPE 2 DIABETES MELLITUS WITH DIABETIC P 10/02/2019 JOSI RAGSDALE MD, Ot E11.621 TYPE 2 DIABETES MELLITUS WITH FOOT ULCER 10/02/2019 JOSI RAGSDALE MD, Ot E66.01 MORBID (SEVERE) OBESITY DUE TO EXCESS CA 10/02/2019 LO JOSI MARTINEZ Ot L97.422 NON- PRS 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 10/02/2019 LO JOSI MARTINEZ Ot M14.672 CHARCOT'S JOINT, LEFT ANKLE AND FOOT 10/04/2019 LO JOSI MARTINEZ Ot B95.8 UNSP STAPHYLOCOCCUS THE CAUSE OF DISE 10/04/2019 LO JOSI MARTINEZ Ot E11.42 TYPE 2 DIABETES MELLITUS WITH DIABETIC P 10/04/2019 LO JOSI MARTINEZ Ot E11.621 TYPE 2 DIABETES MELLITUS WITH FOOT ULCER 10/04/2019 LO JOSI MARTINEZ Ot E66.01 MORBID (SEVERE) OBESITY DUE TO EXCESS CA 10/04/2019 LO JOSI MARTINEZ Ot L97.422 NON- PRS 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 10/04/2019 LO JOSI MARTINEZ Ot M14.672 CHARCOT'S JOINT, LEFT ANKLE AND FOOT 10/05/2019 LO JOSI MARTINEZ Ot A52.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) 10/05/2019 LO JOSI MARTINEZ Ot E11.42 TYPE 2 DIABETES MELLITUS WITH DIABETIC P 10/05/2019 JOSI RAGSDALE MD, Ot E11.52 TYPE 2 DIABETES W DIABETIC PERIPHERAL AN 10/05/2019 JOSI RAGSDALE MD, Ot E11.621 TYPE 2 DIABETES MELLITUS WITH FOOT ULCER 10/05/2019 JOSI RAGSDALE MD, Ot E66.01 MORBID (SEVERE) OBESITY DUE TO EXCESS CA 10/05/2019 JOSI RAGSDALE MD Ot I96 GANGRENE, NOT ELSEWHERE CLASSIFIED 10/05/2019 JOSI RAGSDALE MD, Ot L97.422 NON- PRS 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 10/06/2019 JOSI RAGSDALE MD, Ot A52.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) 10/06/2019 LO JOSI MARTINEZ Ot E11.42 TYPE 2 DIABETES MELLITUS WITH DIABETIC P 10/06/2019 JOSI RAGSDALE MD, Ot E11.52 TYPE 2 DIABETES W DIABETIC PERIPHERAL AN 10/06/2019 LO JOSI MARTINEZ Ot 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 10/06/2019 JOSI RAGSDALE MD, Ot E11.621 TYPE 2 DIABETES MELLITUS WITH FOOT ULCER 10/06/2019 JOSI RAGSDALE MD, Ot E66.01 MORBID (SEVERE) OBESITY DUE TO EXCESS CA 10/06/2019 JOSI RAGSDALE MD Ot I96 GANGRENE, NOT ELSEWHERE CLASSIFIED 10/06/2019 JOSI RAGSDALE MD, Ot L97.422 NON- PRS 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 10/06/2019 JOSI RAGSDALE MD, Ot Z68.38 BODY MASS INDEX (BMI) 38.0-38.9, ADULT 10/06/2019 JOSI RAGSDALE MD, Ot E11.42 TYPE 2 DIABETES MELLITUS WITH DIABETIC P 10/06/2019 JOSI RAGSDALE MD, Ot E11.621 TYPE 2 DIABETES MELLITUS WITH FOOT ULCER 10/06/2019 JOSI RAGSDALE MD, Ot E44.1 MILD PROTEIN-CALORIE MALNUTRITION 10/06/2019 JOSI RAGSDALE MD, Ot E66.01 MORBID (SEVERE) OBESITY DUE TO EXCESS CA 10/06/2019 LO JOSI MARTINEZ Ot L97.422 NON- PRS 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 10/11/2019 JOSI RAGSDALE MD, Ot B95.8 UNSP STAPHYLOCOCCUS THE CAUSE OF DISE 10/11/2019 JOSI RAGSDALE MD, Ot E11.42 TYPE 2 DIABETES MELLITUS WITH DIABETIC P 10/11/2019 JOSI RAGSDALE MD, Ot E11.621 TYPE 2 DIABETES MELLITUS WITH FOOT ULCER 10/11/2019 JOSI RAGSDALE MD, Ot E66.01 MORBID (SEVERE) OBESITY DUE TO EXCESS CA 10/11/2019 JOSI RAGSDALE MD, Ot M14.672 CHARCOT'S JOINT, LEFT ANKLE AND FOOT 10/23/2019 JOSI RAGSDALE MD, Ot E11.42 TYPE 2 DIABETES MELLITUS WITH DIABETIC P 10/23/2019 JOSI RAGSDALE MD, Ot E11.621 TYPE 2 DIABETES MELLITUS WITH FOOT ULCER 10/23/2019 JOSI RAGSDALE MD, Ot E66.01 MORBID (SEVERE) OBESITY DUE TO EXCESS CA 10/23/2019 JOSI RASGDALE MD, Ot L97.422 NON- PRS 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 10/23/2019 JOSI RAGSDALE MD, Ot M14.672 CHARCOT'S JOINT, LEFT ANKLE AND FOOT 10/24/2019 JOSI RAGSDALE MD, Ot B95.8 UNSP STAPHYLOCOCCUS THE CAUSE OF DISE 10/24/2019 JOSI RAGSDALE MD, Ot E11.42 TYPE 2 DIABETES MELLITUS WITH DIABETIC P 10/24/2019 JOSI RAGSDALE MD, Ot E11.621 TYPE 2 DIABETES MELLITUS WITH FOOT ULCER 10/24/2019 JOSI RAGSDALE MD, Ot E66.01 MORBID (SEVERE) OBESITY DUE TO EXCESS CA 10/24/2019 JOSI RAGSDALE MD, Ot L97.422 NON- PRS 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 10/24/2019 JOSI RAGSDALE MD, Ot M14.672 CHARCOT'S JOINT, LEFT ANKLE AND FOOT 10/24/2019 JOSI RAGSDALE MD, Ot B95.8 UNSP STAPHYLOCOCCUS THE CAUSE OF DISE 10/24/2019 JOSI RAGSDALE MD, Ot E11.42 TYPE 2 DIABETES MELLITUS WITH DIABETIC P 10/24/2019 JOSI RAGSDALE MD, Ot E11.621 TYPE 2 DIABETES MELLITUS WITH FOOT ULCER 10/24/2019 JOSI RAGSDALE MD, Ot E66.01 MORBID (SEVERE) OBESITY DUE TO EXCESS CA 10/24/2019 JOSI RAGSDALE MD, Ot L97.422 NON- PRS 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 10/24/2019 JOSI RAGSDALE MD, Ot M14.672 CHARCOT'S JOINT, LEFT ANKLE AND FOOT 11/09/2019 JORGE QUIÑONES MD, Ot E11.42 TYPE 2 DIABETES MELLITUS WITH DIABETIC P 11/09/2019 JORGE QUIÑONES MD Ot E11.52 TYPE 2 DIABETES W DIABETIC PERIPHERAL AN 11/09/2019 JORGE QUIÑONES MD, Ot E11.621 TYPE 2 DIABETES MELLITUS WITH FOOT ULCER 11/09/2019 JORGE QUIÑONES MD, Ot E66.01 MORBID (SEVERE) OBESITY DUE TO EXCESS CA 11/09/2019 JORGE QUIÑONES MD, Ot 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 11/09/2019 JORGE QUIÑONES MD, Ot M14.672 CHARCOT'S JOINT, LEFT ANKLE AND FOOT 11/14/2019 JORGE QUIÑONES MD Ot E11.42 TYPE 2 DIABETES MELLITUS WITH DIABETIC P 11/14/2019 JORGE QUIÑONES MD, Ot E11.621 TYPE 2 DIABETES MELLITUS WITH FOOT ULCER 11/14/2019 JORGE QUIÑONES MD, Ot E66.01 MORBID (SEVERE) OBESITY DUE TO EXCESS CA 11/14/2019 JORGE QUIÑONES MD, Ot 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 11/14/2019 JORGE QUIÑONES MD, Ot M14.672 CHARCOT'S JOINT, LEFT ANKLE AND FOOT 11/23/2019 JORGE QUIÑONES MD, Ot E11.42 TYPE 2 DIABETES MELLITUS WITH DIABETIC P 11/23/2019 JORGE QUIÑONES MD Ot E11.52 TYPE 2 DIABETES W DIABETIC PERIPHERAL AN 11/23/2019 JORGE QUIÑONES MD Ot 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 11/23/2019 JORGE QUIÑONES MD Ot E11.621 TYPE 2 DIABETES MELLITUS WITH FOOT ULCER 11/23/2019 JORGE QUIÑONES MD Ot E66.01 MORBID (SEVERE) OBESITY DUE TO EXCESS CA 11/23/2019 JORGE QUIÑONES MD Ot I96 GANGRENE, NOT ELSEWHERE CLASSIFIED 11/23/2019 JORGE QUIÑONES MD Ot 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 11/26/2019 JORGE QUIÑONES MD, Ot E11.42 TYPE 2 DIABETES MELLITUS WITH DIABETIC P 11/26/2019 JORGE QUIÑONES MD, Ot E11.52 TYPE 2 DIABETES W DIABETIC PERIPHERAL AN 11/26/2019 JORGE QUIÑONES MD, Ot 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 11/26/2019 JORGE QUIÑONES MD Ot E11.621 TYPE 2 DIABETES MELLITUS WITH FOOT ULCER 11/26/2019 JORGE QUIÑONES MD Ot E66.01 MORBID (SEVERE) OBESITY DUE TO EXCESS CA 11/26/2019 JORGE QUIÑONES MD, Ot I96 GANGRENE, NOT ELSEWHERE CLASSIFIED 11/26/2019 JORGE QUIÑONES MD Ot 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 11/28/2019 JORGE QUIÑONES MD Ot E11.42 TYPE 2 DIABETES MELLITUS WITH DIABETIC P 11/28/2019 JORGE QUIÑONES MD Ot E11.52 TYPE 2 DIABETES W DIABETIC PERIPHERAL AN 11/28/2019 JORGE QUIÑONES MD Ot E11.621 TYPE 2 DIABETES MELLITUS WITH FOOT ULCER 11/28/2019 JORGE QUIÑONES MD Ot E66.01 MORBID (SEVERE) OBESITY DUE TO EXCESS CA 11/28/2019 JORGE QUIÑONES MD Ot 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 11/28/2019 JORGE QUIÑONES MD Ot M14.672 CHARCOT'S JOINT, LEFT ANKLE AND FOOT 12/05/2019 JORGE QUIÑONES MD Ot E11.42 TYPE 2 DIABETES MELLITUS WITH DIABETIC P 12/05/2019 JORGE QUIÑONES MD Ot 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 12/05/2019 JORGE QUIÑONES MD Ot E11.621 TYPE 2 DIABETES MELLITUS WITH FOOT ULCER 12/05/2019 JORGE QUIÑONES MD, Ot E66.01 MORBID (SEVERE) OBESITY DUE TO EXCESS CA 12/05/2019 JORGE QUIÑONES MD, Ot 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 12/06/2019 JORGE QUIÑONES MD, Ot E11.42 TYPE 2 DIABETES MELLITUS WITH DIABETIC P 12/06/2019 JORGE QUIÑONES MD, Ot E11.621 TYPE 2 DIABETES MELLITUS WITH FOOT ULCER 12/06/2019 JORGE QUIÑONES MD, Ot E66.01 MORBID (SEVERE) OBESITY DUE TO EXCESS CA 12/06/2019 JORGE QUIÑONES MD, Ot 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 12/06/2019 JORGE QUIÑONES MD, Ot M14.672 CHARCOT'S JOINT, LEFT ANKLE AND FOOT 12/10/2019 JORGE QUIÑONES MD, Ot E11.42 TYPE 2 DIABETES MELLITUS WITH DIABETIC P 12/10/2019 JORGE QUIÑONES MD, Ot 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 12/10/2019 JORGE QUIÑONES MD, Ot E11.621 TYPE 2 DIABETES MELLITUS WITH FOOT ULCER 12/10/2019 JORGE QUIÑONES MD, Ot E66.01 MORBID (SEVERE) OBESITY DUE TO EXCESS CA 12/10/2019 JORGE QUIÑONES MD, Ot 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 12/13/2019 JORGE QUIÑONES MD, Ot E11.42 TYPE 2 DIABETES MELLITUS WITH DIABETIC P 12/13/2019 JORGE QUIÑONES MD Ot E11.52 TYPE 2 DIABETES W DIABETIC PERIPHERAL AN 12/13/2019 JORGE QUIÑONES MD, Ot 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 12/13/2019 JORGE QUIÑONES MD Ot E11.621 TYPE 2 DIABETES MELLITUS WITH FOOT ULCER 12/13/2019 JORGE QUIÑONES MD, Ot E66.01 MORBID (SEVERE) OBESITY DUE TO EXCESS CA 12/13/2019 JORGE QUIÑONES MD, Ot I96 GANGRENE, NOT ELSEWHERE CLASSIFIED 12/13/2019 JORGE QUIÑONES MD, Ot 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 12/19/2019 JORGE QUIÑONES MD Ot E11.42 TYPE 2 DIABETES MELLITUS WITH DIABETIC P 12/19/2019 JORGE QUIÑONES MD, Ot 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 12/19/2019 JORGE QUIÑONES MD, Ot E11.621 TYPE 2 DIABETES MELLITUS WITH FOOT ULCER 12/19/2019 JORGE QUIÑONES MD, Ot E66.01 MORBID (SEVERE) OBESITY DUE TO EXCESS CA 12/19/2019 JORGE QUIÑONES MD, Ot 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 12/27/2019 JORGE QUIÑONES MD, Ot E11.42 TYPE 2 DIABETES MELLITUS WITH DIABETIC P 12/27/2019 JORGE QUIÑONES MD, Ot 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 12/27/2019 JORGE QUIÑONES MD, Ot E11.621 TYPE 2 DIABETES MELLITUS WITH FOOT ULCER 12/27/2019 JORGE QUIÑONES MD, Ot E66.01 MORBID (SEVERE) OBESITY DUE TO EXCESS CA 12/27/2019 JORGE QUIÑONES MD, Ot 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 01/02/2020 JORGE QUIÑONES MD, Ot E11.42 TYPE 2 DIABETES MELLITUS WITH DIABETIC P 01/02/2020 JORGE QUIÑONES MD, Ot 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 01/02/2020 JORGE QUIÑONES MD, Ot E11.621 TYPE 2 DIABETES MELLITUS WITH FOOT ULCER 01/02/2020 JORGE QUIÑONES MD, Ot E66.01 MORBID (SEVERE) OBESITY DUE TO EXCESS CA 01/02/2020 JORGE QUIÑONES MD, Ot 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 01/08/2020 JORGE QUIÑONES MD, Ot E11.621 TYPE 2 DIABETES MELLITUS WITH FOOT ULCER 01/08/2020 JORGE QUIÑONES MD Ot E11.621 TYPE 2 DIABETES MELLITUS WITH FOOT ULCER 01/09/2020 JORGE QUIÑONES MD, Ot E11.42 TYPE 2 DIABETES MELLITUS WITH DIABETIC P 01/09/2020 JORGE QUIÑONES MD, Ot 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 01/09/2020 JORGE QUIÑONES MD, Ot E11.621 TYPE 2 DIABETES MELLITUS WITH FOOT ULCER 01/09/2020 JORGE QUIÑONES MD Ot E66.01 MORBID (SEVERE) OBESITY DUE TO EXCESS CA 01/09/2020 JORGE QUIÑONES MD Ot 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 01/09/2020 JORGE QUIÑONES MD, Ot E11.621 TYPE 2 DIABETES MELLITUS WITH FOOT ULCER 01/09/2020 JORGE QUIÑONES MD, Ot L97.509 NON-PRESSURE CHRONIC ULCER OTH PRT UNSP 01/11/2020 JORGE QUIÑONES MD, Ot E11.42 TYPE 2 DIABETES MELLITUS WITH DIABETIC P 01/11/2020 JORGE QUIÑONES MD, Ot 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 01/11/2020 JORGE QUIÑONES MD, Ot E11.621 TYPE 2 DIABETES MELLITUS WITH FOOT ULCER 01/11/2020 JORGE QUIÑONES MD, Ot E66.01 MORBID (SEVERE) OBESITY DUE TO EXCESS CA 01/11/2020 JORGE QUIÑONES MD, Ot 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 01/18/2020 JORGE QUIÑONES MD, Ot 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 01/18/2020 JORGE QUIÑONES MD, Ot E11.42 TYPE 2 DIABETES MELLITUS WITH DIABETIC P 01/18/2020 JORGE QUIÑONES MD, Ot E11.51 TYPE 2 DIABETES W DIABETIC PERIPHERAL AN 01/18/2020 JORGE QUIÑONES MD, Ot 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 01/18/2020 JORGE QUIÑONES MD, Ot E11.621 TYPE 2 DIABETES MELLITUS WITH FOOT ULCER 01/18/2020 JORGE QUIÑONES MD, Ot E66.01 MORBID (SEVERE) OBESITY DUE TO EXCESS CA 01/18/2020 JORGE QUIÑONES MD, Ot I10 ESSENTIAL (PRIMARY) HYPERTENSION 01/18/2020 JORGE QUIÑONES MD, Ot I25 .2 OLD MYOCARDIAL INFARCTION 01/18/2020 JORGE QUIÑONES MD, Ot 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 01/18/2020 JORGE QUIÑONES MD, Ot N18 .6 END STAGE RENAL DISEASE 01/18/2020 JORGE QUIÑONES MD, Ot Z86.718 PERSONAL HISTORY OF OTHER VENOUS THROMBO 01/18/2020 JORGE QUIÑONES MD, Ot Z86.73 PRSNL HX OF TIA (TIA), AND CEREB INFRC W 01/18/2020 JORGE QUIÑONES MD, Ot Z98.84 BARIATRIC SURGERY STATUS 01/25/2020 JORGE QUIÑONES MD, Ot E11.42 TYPE 2 DIABETES MELLITUS WITH DIABETIC P 01/25/2020 JORGE QUIÑONES MD, Ot E11.51 TYPE 2 DIABETES W DIABETIC PERIPHERAL AN 01/25/2020 JORGE QUIÑONES MD, Ot 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 01/25/2020 JORGE QUIÑONES MD, Ot E11.621 TYPE 2 DIABETES MELLITUS WITH FOOT ULCER 01/25/2020 JORGE QUIÑONES MD, Ot E66.01 MORBID (SEVERE) OBESITY DUE TO EXCESS CA 01/25/2020 JORGE QUIÑONES MD, Ot I12 .0 HYP CHR KIDNEY DISEASE W STAGE 5 CHR KID 01/25/2020 JORGE QUIÑONES MD, Ot I25 .2 OLD MYOCARDIAL INFARCTION 01/25/2020 JORGE QUIÑONES MD, Ot 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 01/25/2020 JORGE QUIÑONES MD, Ot N18 .6 END STAGE RENAL DISEASE 01/25/2020 JORGE QUIÑONES MD, Ot Z68.35 BODY MASS INDEX (BMI) 35.0-35.9, ADULT 01/25/2020 JORGE QUIÑONES MD, Ot Z86.718 PERSONAL HISTORY OF OTHER VENOUS THROMBO 01/25/2020 JORGE QUIÑONES MD, Ot Z86.73 PRSNL HX OF TIA (TIA), AND CEREB INFRC W 01/25/2020 JORGE QUIÑONES MD, Ot Z98.84 BARIATRIC SURGERY STATUS 01/31/2020 JORGE QUIÑONES MD, Ot E11.42 TYPE 2 DIABETES MELLITUS WITH DIABETIC P 01/31/2020 JORGE QUIÑONES MD, Ot 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 01/31/2020 JORGE QUIÑONES MD, Ot E11.621 TYPE 2 DIABETES MELLITUS WITH FOOT ULCER 01/31/2020 JORGE QUIÑONES MD, Ot E66.01 MORBID (SEVERE) OBESITY DUE TO EXCESS CA 01/31/2020 JORGE QUIÑONES MD, Ot L97.222 NON-PRESSURE CHRONIC ULCER OF LEFT CALF 01/31/2020 JORGE QUIÑONES MD, Ot 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 01/31/2020 JORGE QUIÑONES MD, Ot E11.621 TYPE 2 DIABETES MELLITUS WITH FOOT ULCER 01/31/2020 JORGE QUIÑONES MD, Ot L97.509 NON-PRESSURE CHRONIC ULCER OTH PRT UNSP 01/31/2020 JORGE QUIÑONES MD, Ot E11.42 TYPE 2 DIABETES MELLITUS WITH DIABETIC P 01/31/2020 JORGE QUIÑONES MD, Ot 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 01/31/2020 JORGE QUIÑONES MD, Ot E11.621 TYPE 2 DIABETES MELLITUS WITH FOOT ULCER 01/31/2020 JORGE QUIÑONES MD, Ot E66.01 MORBID (SEVERE) OBESITY DUE TO EXCESS CA 01/31/2020 JORGE QUIÑONES MD, Ot 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 02/06/2020 AAKASH MONTIEL MD Ot Z01.818 ENCOUNTER FOR OTHER PREPROCEDURAL EXAMIN 02/06/2020 AAKASH MONTIEL MD Ot Z11. 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 02/09/2020 JORGE QUIÑONES MD, Ot E11.42 TYPE 2 DIABETES MELLITUS WITH DIABETIC P 02/09/2020 JORGE QUIÑONES MD Ot E11.51 TYPE 2 DIABETES W DIABETIC PERIPHERAL AN 02/09/2020 JORGE QUIÑONES MD Ot 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 02/09/2020 JORGE QUIOÑNES MD Ot E11.621 TYPE 2 DIABETES MELLITUS WITH FOOT ULCER 02/09/2020 JORGE QUIÑONES MD, Ot E66.01 MORBID (SEVERE) OBESITY DUE TO EXCESS CA 02/09/2020 JORGE QUIÑONES MD Ot I10 ESSENTIAL (PRIMARY) HYPERTENSION 02/09/2020 JORGE QUIÑONES MD, Ot I25 .2 OLD MYOCARDIAL INFARCTION 02/09/2020 JORGE QUIÑONES MD, Ot 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 02/09/2020 JORGE QUIÑONES MD Ot N18 .6 END STAGE RENAL DISEASE 02/09/2020 JORGE QUIÑONES MD, Ot Z86.718 PERSONAL HISTORY OF OTHER VENOUS THROMBO 02/09/2020 JORGE QUIÑONES MD, Ot Z86.73 PRSNL HX OF TIA (TIA), AND CEREB INFRC W 02/09/2020 JORGE QUIÑONES MD, Ot Z98.84 BARIATRIC SURGERY STATUS 02/15/2020 JORGE QUIÑONES MD, Ot E11.42 TYPE 2 DIABETES MELLITUS WITH DIABETIC P 02/15/2020 JORGE QUIÑONES MD, Ot E11.51 TYPE 2 DIABETES W DIABETIC PERIPHERAL AN 02/15/2020 JORGE QUIÑONES MD, Ot 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 02/15/2020 JORGE QUIÑONES MD, Ot E11.621 TYPE 2 DIABETES MELLITUS WITH FOOT ULCER 02/15/2020 JORGE QUIÑONES MD, Ot E66.01 MORBID (SEVERE) OBESITY DUE TO EXCESS CA 02/15/2020 JORGE QUIÑONES MD, Ot I12 .0 HYP CHR KIDNEY DISEASE W STAGE 5 CHR KID 02/15/2020 JORGE QUIÑONES MD, Ot I25 .2 OLD MYOCARDIAL INFARCTION 02/15/2020 JORGE QUIÑONES MD, Ot 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 02/15/2020 JORGE QUIÑONES MD, Ot N18 .6 END STAGE RENAL DISEASE 02/15/2020 JORGE QUIÑONES MD, Ot Z68.35 BODY MASS INDEX (BMI) 35.0-35.9, ADULT 02/15/2020 JORGE QUIÑONES MD, Ot Z86.718 PERSONAL HISTORY OF OTHER VENOUS THROMBO 02/15/2020 JORGE QUIÑONES MD, Ot Z86.73 PRSNL HX OF TIA (TIA), AND CEREB INFRC W 02/15/2020 JORGE QUIÑONES MD, Ot Z87.891 PERSONAL HISTORY OF NICOTINE DEPENDENCE 02/22/2020 JORGE QUIÑONES MD, Ot E11.42 TYPE 2 DIABETES MELLITUS WITH DIABETIC P 02/22/2020 JORGE QUIÑONES MD, Ot E11.621 TYPE 2 DIABETES MELLITUS WITH FOOT ULCER 02/22/2020 JORGE QUIÑONES MD, Ot E66.01 MORBID (SEVERE) OBESITY DUE TO EXCESS CA 02/22/2020 JORGE QUIÑONES MD, Ot 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 02/22/2020 JORGE QUIÑONES MD, Ot M14.672 CHARCOT'S JOINT, LEFT ANKLE AND FOOT 02/28/2020 JORGE QUIÑONES MD, Ot E11.42 TYPE 2 DIABETES MELLITUS WITH DIABETIC P 02/28/2020 JORGE QUIÑONES MD Ot E11.52 TYPE 2 DIABETES W DIABETIC PERIPHERAL AN 02/28/2020 JORGE QUIÑONES MD, Ot E11.621 TYPE 2 DIABETES MELLITUS WITH FOOT ULCER 02/28/2020 JORGE QUIÑONES MD Ot E66.01 MORBID (SEVERE) OBESITY DUE TO EXCESS CA 02/28/2020 JORGE QUIÑONES MD, Ot 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 02/28/2020 JORGE QUIÑONES MD, Ot M14.672 CHARCOT'S JOINT, LEFT ANKLE AND FOOT 02/29/2020 JORGE QUIÑONES MD, Ot E11.42 TYPE 2 DIABETES MELLITUS WITH DIABETIC P 02/29/2020 JORGE QUIÑONES MD, Ot 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 02/29/2020 JORGE QUIÑONES MD, Ot E11.621 TYPE 2 DIABETES MELLITUS WITH FOOT ULCER 02/29/2020 JORGE QUIÑONES MD, Ot E66.01 MORBID (SEVERE) OBESITY DUE TO EXCESS CA 02/29/2020 JORGE QUIÑONES MD Ot 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 02/29/2020 JORGE QUIÑONES MD Ot Z68.35 BODY MASS INDEX (BMI) 35.0-35.9, ADULT 03/06/2020 Ot E11.42 TYP E 2 DIABETES MELLITUS WITH DIABETIC P 03/06/2020 Ot E11.621 TY PE 2 DIABETES MELLITUS WITH FOOT ULCER 03/06/2020 Ot E66.01 MOR BID (SEVERE) OBESITY DUE TO EXCESS CA 03/06/2020 Ot L97.422 NO N-PRS 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 03/06/2020 Ot M14.672 CH ARCOT'S JOINT, LEFT ANKLE AND FOOT Procedures Code Description [place] [address] A1C 01/31/2009 42966 UA W /LONG DIP 05/23/2009 95093 ROUT INE VENIPUNCTURE 07/18/2009 74401 A1C 07/18/2009 68696 CMP [id number]/18/[id number] GF R CALC 07/18/2009 86.22 EXCI S DEBRIDE OF WOUND, INFECT, OR BURN 11/11/2014 86.22 EXCI S DEBRIDE OF WOUND, INFECT, OR BURN 11/13/2014 [id number] [place] ASURE OF CARDIAC SAMPL PRESSURE, L H 06/11/2017 [id number] FL UOROSCOPY OF MULT COR ART USING L OSM 06/11/2017 [id number] FL UOROSCOPY OF LEFT HEART USING LOW OSMO 06/11/2017 Results Test Result Range Arterial blood gas measurement - 7 10:46 Blood pCO2 54 mm[Hg] 35-45 Blood pO2 69 mm[Hg] 79-93 Arterial blood bicarbonate measurement (moles/volume) 23 mmol/L 23-27 Arterial blood base excess by calculation -2.8 mmo l/L -2.5-2.5 Arterial blood oxygen saturation measurement 92 % 94-100 * Inhaled oxygen flow rate 5 L NRG Arterial blood pH measurement with patient temperature correction 7.26 7.37-7.43 Arterial blood carbon dioxide, total measurement (mole s/volume) 25.0 mmol/L 21.0-31.0 Body site R RAD NRG Assessment of wrist artery patency prior to arterial p uncture YES-POS NRG Setting of ventilation mode NO NR G Measurement of body temperature 98.2 NRG Capillary blood glucose measurement by g lucometer (mass/volume) - 06/08/17 10:47 Capillary blood glucose measurement by glucometer (mas s/volume) 271 mg/dL 70-110 Complete blood count (CBC) with automate d white blood cell (WBC) differential - 06/08/17 10:50 Blood leukocytes automated count (number/volume) 13.0 10*3/uL 4.3-11.0 Blood erythrocytes automated count (number/volume) 3.42 10*6/uL 4.35-5.85 Venous blood hemoglobin measurement (mass/volume) 10.2 g/dL 11.5-16.0 Blood hematocrit (volume fraction) 33 % 35-52 Automated erythrocyte mean corpuscular volume 96 [ foz_us] 80-99 Automated erythrocyte mean corpuscular h emoglobin (mass per erythrocyte) 30 pg 25-34 Automated erythrocyte mean corpuscular h emoglobin concentration measurement (mass/volume) 31 g/dL 32-36 Automated erythrocyte distribution width ratio 13. 5 % 10.0- 14.5 Automated blood platelet count (count/volume) 222 10*3/uL [...] 10*3 1.0-4.0 Blood monocytes automated count (number/volume) 1. 0 10*3 0.0-1.0 Automated eosinophil count 0.0 10*3/uL 0 .0-0.3 Automated blood basophil count (count/volume) 0.0 10*3/uL 0.0-0.1 Blood lactic acid measurement (moles/vol ume) - 06/08/17 10:50 Blood lactic acid measurement [...] 5-14 Serum or plasma urea nitrogen measurement (mass/volume ) 37 mg/dL 7-18 Serum or plasma creatinine measurement (mass/volume) 2.62 mg/dL 0.60-1.30 Serum or plasma urea nitrogen/creatinine mass ratio 14 NRG Serum or plasma creatinine measurement w ith calculation of estimated glomerular filtration rate 18 NRG Serum or plasma glucose measurement (mass/volume) 255 mg/dL 70-105 Serum or plasma calcium measurement (mass/volume) 8.2 mg/dL 8.5-10.1 Serum or plasma total bilirubin measurement (mass/volu me) 0.6 mg/dL 0.1-1.0 Serum or plasma alkaline phosphatase alex surement (enzymatic activity/volume) 95 U/L 40-136 Serum or plasma aspartate aminotransfera se measurement (enzymatic activity/volume) 25 U/L 5-34 Serum or plasma alanine aminotransferase measurement (enzymatic activity/volume) 13 U/L 0-55 Serum or plasma protein measurement (mass/volume) 6.7 g/dL 6.4-8.2 Serum or plasma albumin measurement (mass/volume) 3.2 g/dL 3.2-4.5 Magnesium - 06/08/17 10:50 Magnesium 1.8 mg/dL 1.8-2.4 Fibrin D-dimer FEU measurement in platel et poor plasma (mass/volume) - 06/08/17 10:50 Fibrin D-dimer FEU measurement in platelet poor plasma (mass/volume) 4.22 ug/mL 0.00-0.49 Serum or plasma troponin i.cardiac measu rement (mass/volume) - 06/08/17 10:50 Serum or plasma troponin i.cardiac measurement (mass/v olume) < ng/mL <0.30 Serum or plasma lithium measurement (mol es/volume) - 06/08/17 10:50 BNP level 251.0 pg/mL <100.0 Bacterial blood culture - 06/08/17 10:50 Bacterial blood culture NG NRG Bacterial blood culture - 06/08/17 11:36 Bacterial blood culture NG NRG Complete urinalysis with reflex to cultu re - 06/08/17 12:15 Urine color determination YELLOW NRG Urine clarity determination CLEAR NR G Urine pH measurement by test strip 5 5-9 Specific gravity of urine by test strip 1.030 1.016-1.022 Urine protein assay by test strip, semi-quantitative 2+ NEGATIVE Urine glucose detection by automated test strip 1+ NEGATIVE Erythrocytes detection in urine sediment by light micr oscopy NEGATIVE NEGATIVE Urine ketones detection by automated test strip NE GATIVE NEGATIVE Urine nitrite detection by test strip NEGATIVE NEGATIVE Urine total bilirubin detection by test strip 2+ NEGATIVE Urine urobilinogen measurement by automated test strip (mass/volume) 4 mg/dL NORMAL Urine leukocyte esterase detection by dipstick 1+ NEGATIVE Automated urine sediment erythrocyte cou nt by microscopy (number/high power field) RARE NRG Automated urine sediment leukocyte count by microscopy (number/high power field) [HPF] NRG Bacteria detection in urine sediment by light microsco py FEW NRG Crystals detection in urine sediment by light microsco py PRESENT NRG Casts detection in urine sediment by light microscopy PRESENT NRG Mucus detection in urine sediment by light microscopy NEGATIVE NRG Complete urinalysis with reflex to culture YES NRG Amorphous sediment detection in urine sediment by ligh t microscopy FEW PRECIOUS URATES NRG Uric acid crystals detection in urine sediment by ligh t microscopy RARE NRG Waxy casts detection in urine sediment by light micros copy 5-10 NRG Bacterial urine culture - 06/08/17 12:15 Bacterial urine culture NG NRG Serum or plasma lactate measurement (mol es/volume) - 06/08/17 13:04 Serum or plasma lactate measurement (moles/volume) 2.03 mmol/L 0.50-2.00 Whole blood basic metabolic panel - 05/30 13:04 Serum or plasma sodium measurement (moles/volume) 135 mmol/L 135-145 Serum or plasma potassium measurement (moles/volume) 4.8 mmol/L 3.6-5.0 Serum or plasma chloride measurement (moles/volume) 107 mmol/L 98-107 Carbon dioxide 19 mmol/L 21-32 Serum or plasma anion gap determination (moles/volume) 9 mmol/L 5-14 Serum or plasma urea nitrogen measurement (mass/volume ) 34 mg/dL 7-18 Serum or plasma creatinine measurement (mass/volume) 2.07 mg/dL 0.60-1.30 Serum or plasma urea nitrogen/creatinine mass ratio 16 NRG Serum or plasma creatinine measurement w ith calculation of estimated glomerular filtration rate 24 NRG Serum or plasma glucose measurement (mass/volume) 211 mg/dL 70-105 Serum or plasma calcium measurement (mass/volume) 7.5 mg/dL 8.5-10.1 Influenza virus A and B antigen detectio n - 06/08/17 15:45 FLU RESULT NEGATIVE FOR INFLUENZA A AND B ANTIGENS BY IA NRG Methicillin resistant Staphylococcus aur eus (MRSA) screening culture - 06/08/17 15:45 Methicillin resistant Staphylococcus aureus (MRSA) scr eening culture NEG NRG Capillary blood glucose measurement by g lucometer (mass/volume) - 06/08/17 16:09 Capillary blood glucose measurement by glucometer (mas s/volume) 189 mg/dL 70-110 Blood lactic acid measurement (moles/vol ume) - 06/08/17 17:46 Blood lactic acid measurement (moles/volume) 2.01 mmol/L 0.50-2.00 Capillary blood glucose measurement by g lucometer (mass/volume) - 06/08/17 19:54 Capillary blood glucose measurement by glucometer (mas s/volume) 143 mg/dL 70-110 Serum or plasma lactate measurement (mol es/volume) - 06/08/17 20:00 Serum or plasma lactate measurement (moles/volume) 2.09 mmol/L 0.50-2.00 Complete blood count (CBC) with automate d white blood cell (WBC) differential - 06/09/17 04:55 Blood leukocytes automated count (number/volume) 11.1 10*3/uL 4.3-11.0 Blood erythrocytes automated count (number/volume) 2.83 10*6/uL 4.35-5.85 Venous blood hemoglobin measurement (mass/volume) 8.5 g/dL 11.5-16.0 Blood hematocrit (volume fraction) 27 % 35-52 Automated erythrocyte mean corpuscular volume 97 [ foz_us] 80-99 Automated erythrocyte mean corpuscular h emoglobin (mass per erythrocyte) 30 pg 25-34 Automated erythrocyte mean corpuscular h emoglobin concentration measurement (mass/volume) 31 g/dL 32-36 Automated erythrocyte distribution width ratio 13. 3 % 10.0- 14.5 Automated blood platelet count (count/volume) 184 10*3/uL [...] 10*3 1.0-4.0 Blood monocytes automated count (number/volume) 0. 8 10*3 0.0-1.0 Automated eosinophil count 0.1 10*3/uL 0 .0-0.3 Automated blood basophil count (count/volume) 0.0 10*3/uL 0.0-0.1 Whole blood basic metabolic panel - 05/30 09/15 04:55 Serum or plasma sodium measurement (moles/volume) 138 mmol/L 135-145 Serum or plasma potassium measurement (moles/volume) 5.1 mmol/L 3.6-5.0 Serum or plasma chloride measurement (moles/volume) 109 mmol/L 98-107 Carbon dioxide 21 mmol/L 21-32 Serum or plasma anion gap determination (moles/volume) 8 mmol/L 5-14 Serum or plasma urea nitrogen measurement (mass/volume ) 33 mg/dL 7-18 Serum or plasma creatinine measurement (mass/volume) 1.60 mg/dL 0.60-1.30 Serum or plasma urea nitrogen/creatinine mass ratio 21 NRG Serum or plasma creatinine measurement w ith calculation of estimated glomerular filtration rate 33 NRG Serum or plasma glucose measurement (mass/volume) 176 mg/dL 70-105 Serum or plasma calcium measurement (mass/volume) 7.8 mg/dL 8.5-10.1 Serum or plasma phosphate measurement (m ass/volume) - 06/09/17 04:55 Serum or plasma phosphate measurement (mass/volume) 3.3 mg/dL 2.3-4.7 Magnesium - 06/09/17 04:55 Magnesium 1.6 mg/dL 1.8-2.4 Serum or plasma troponin i.cardiac measu rement (mass/volume) - 06/09/17 07:30 Serum or plasma troponin i.cardiac measurement (mass/v olume) 0.47 ng/mL <0.30 Lipid 1996 panel - 06/09/17 07:30 Serum or plasma triglyceride measurement (mass/volume) 163 mg/dL <150 Serum or plasma cholesterol measurement (mass/volume) 147 mg/dL < 200 Serum or plasma cholesterol in HDL measurement (mass/v olume) 34 mg/dL 40-60 Cholesterol in LDL [mass/volume] in serum or plasma by direct assay 83 mg/dL 1-129 Serum or plasma cholesterol in VLDL measurement (mass/ volume) 33 mg/dL 5-40 Capillary blood glucose measurement by g lucometer (mass/volume) - 06/09/17 11:30 Capillary blood glucose measurement by glucometer (mas s/volume) 194 mg/dL 70-110 Serum or plasma troponin i.cardiac measu rement (mass/volume) - 06/09/17 13:50 Serum or plasma troponin i.cardiac measurement (mass/v olume) < ng/mL <0.30 Capillary blood glucose measurement by g lucometer (mass/volume) - 06/09/17 15:58 Capillary blood glucose measurement by glucometer (mas s/volume) 300 mg/dL 70-110 Serum or plasma troponin i.cardiac measu rement (mass/volume) - 06/09/17 19:15 Serum or plasma troponin i.cardiac measurement (mass/v olume) < ng/mL <0.30 Capillary blood glucose measurement by g lucometer (mass/volume) - 06/09/17 20:35 Capillary blood glucose measurement by glucometer (mas s/volume) 149 mg/dL 70-110 Capillary blood glucose measurement by g lucometer (mass/volume) - 06/10/17 05:19 Capillary blood glucose measurement by glucometer (mas s/volume) 97 mg/dL 70-110 Complete blood count (CBC) with automate d white blood cell (WBC) differential - 06/10/17 09:42 Blood leukocytes automated count (number/volume) 9.9 10*3/uL 4.3-11.0 Blood erythrocytes automated count (number/volume) 2.74 10*6/uL 4.35-5.85 Venous blood hemoglobin measurement (mass/volume) 8.2 g/dL 11.5-16.0 Blood hematocrit (volume fraction) 27 % 35-52 Automated erythrocyte mean corpuscular volume 97 [ foz_us] 80-99 Automated erythrocyte mean corpuscular h emoglobin (mass per erythrocyte) 30 pg 25-34 Automated erythrocyte mean corpuscular h emoglobin concentration measurement (mass/volume) 31 g/dL 32-36 Automated erythrocyte distribution width ratio 13. 0 % 10.0- 14.5 Automated blood platelet count (count/volume) 201 10*3/uL [...] 10*3 1.0-4.0 Blood monocytes automated count (number/volume) 0. 8 10*3 0.0-1.0 Automated eosinophil count 0.1 10*3/uL 0 .0-0.3 Automated blood basophil count (count/volume) 0.0 10*3/uL 0.0-0.1 Capillary blood glucose measurement by g lucometer (mass/volume) - 06/10/17 10:55 Capillary blood glucose measurement by glucometer (mas s/volume) 132 mg/dL 70-110 Whole blood basic metabolic panel - 05/30 10/16 11:05 Serum or plasma sodium measurement (moles/volume) 135 mmol/L 135-145 Serum or plasma potassium measurement (moles/volume) 5.2 mmol/L 3.6-5.0 Serum or plasma chloride measurement (moles/volume) 106 mmol/L 98-107 Carbon dioxide 24 mmol/L 21-32 Serum or plasma anion gap determination (moles/volume) 5 mmol/L 5-14 Serum or plasma urea nitrogen measurement (mass/volume ) 21 mg/dL 7-18 Serum or plasma creatinine measurement (mass/volume) 0.99 mg/dL 0.60-1.30 Serum or plasma urea nitrogen/creatinine mass ratio 21 NRG Serum or plasma creatinine measurement w ith calculation of estimated glomerular filtration rate 57 NRG Serum or plasma glucose measurement (mass/volume) 130 mg/dL 70-105 Serum or plasma calcium measurement (mass/volume) 8.5 mg/dL 8.5-10.1 Serum or plasma phosphate measurement (m ass/volume) - 06/10/17 11:05 Serum or plasma phosphate measurement (mass/volume) 2.0 mg/dL 2.3-4.7 Magnesium - 06/10/17 11:05 Magnesium 2.5 mg/dL 1.8-2.4 Serum or plasma lithium measurement (mol es/volume) - 06/10/17 11:05 BNP level 163.2 pg/mL <100.0 Capillary blood glucose measurement by g lucometer (mass/volume) - 06/10/17 16:43 Capillary blood glucose measurement by glucometer (mas s/volume) 173 mg/dL 70-110 Capillary blood glucose measurement by g lucometer (mass/volume) - 06/10/17 20:22 Capillary blood glucose measurement by glucometer (mas s/volume) 198 mg/dL 70-110 Capillary blood glucose measurement by g lucometer (mass/volume) - 06/11/17 05:16 Capillary blood glucose measurement by glucometer (mas s/volume) 127 mg/dL 70-110 Complete blood count (CBC) with automate d white blood cell (WBC) differential - 06/11/17 05:46 Blood leukocytes automated count (number/volume) 9.3 10*3/uL 4.3-11.0 Blood erythrocytes automated count (number/volume) 3.02 10*6/uL 4.35-5.85 Venous blood hemoglobin measurement (mass/volume) 9.1 g/dL 11.5-16.0 Blood hematocrit (volume fraction) 29 % 35-52 Automated erythrocyte mean corpuscular volume 97 [ foz_us] 80-99 Automated erythrocyte mean corpuscular h emoglobin (mass per erythrocyte) 30 pg 25-34 Automated erythrocyte mean corpuscular h emoglobin concentration measurement (mass/volume) 31 g/dL 32-36 Automated erythrocyte distribution width ratio 13. 3 % 10.0- 14.5 Automated blood platelet count (count/volume) 224 10*3/uL [...] 10*3 1.0-4.0 Blood monocytes automated count (number/volume) 0. 8 10*3 0.0-1.0 Automated eosinophil count 0.2 10*3/uL 0 .0-0.3 Automated blood basophil count (count/volume) 0.0 10*3/uL 0.0-0.1 Whole blood basic metabolic panel - 05/30 11/13 05:46 Serum or plasma sodium measurement (moles/volume) 137 mmol/L 135-145 Serum or plasma potassium measurement (moles/volume) 5.2 mmol/L 3.6-5.0 Serum or plasma chloride measurement (moles/volume) 106 mmol/L 98-107 Carbon dioxide 21 mmol/L 21-32 Serum or plasma anion gap determination (moles/volume) 10 mmol/L 5-14 Serum or plasma urea nitrogen measurement (mass/volume ) 20 mg/dL 7-18 Serum or plasma creatinine measurement (mass/volume) 0.97 mg/dL 0.60-1.30 Serum or plasma urea nitrogen/creatinine mass ratio 21 NRG Serum or plasma creatinine measurement w ith calculation of estimated glomerular filtration rate 58 NRG Serum or plasma glucose measurement (mass/volume) 106 mg/dL 70-105 Serum or plasma calcium measurement (mass/volume) 8.8 mg/dL 8.5-10.1 Serum or plasma phosphate measurement (m ass/volume) - 06/11/17 05:46 Serum or plasma phosphate measurement (mass/volume) 2.3 mg/dL 2.3-4.7 Magnesium - 06/11/17 05:46 Magnesium 2.5 mg/dL 1.8-2.4 PT panel in platelet poor plasma by coag ulation assay - 06/11/17 07:13 Prothrombin time (PT) in platelet poor plasma by coagu lation assay 14.9 s 12.2-14.7 INR in platelet poor plasma or blood by coagulation as say 1.2 0.8-1.4 Activated partial thromboplastin time (a PTT) in platelet poor plasma bycoagulation assay - 06/11/17 07:13 Activated partial thromboplastin time (a PTT) in platelet poor plasma bycoagulation assay 53 s 24-35 Capillary blood glucose measurement by g lucometer (mass/volume) - 06/11/17 11:04 Capillary blood glucose measurement by glucometer (mas s/volume) 139 mg/dL 70-110 Capillary blood glucose measurement by g lucometer (mass/volume) - 06/11/17 16:41 Capillary blood glucose measurement by glucometer (mas s/volume) 106 mg/dL 70-110 Capillary blood glucose measurement by g lucometer (mass/volume) - 06/11/17 20:38 Capillary blood glucose measurement by glucometer (mas s/volume) 189 mg/dL 70-110 Complete blood count (CBC) with automate d white blood cell (WBC) differential - 06/12/17 04:32 Blood leukocytes automated count (number/volume) 9.1 10*3/uL 4.3-11.0 Blood erythrocytes automated count (number/volume) 2.87 10*6/uL 4.35-5.85 Venous blood hemoglobin measurement (mass/volume) 8.6 g/dL 11.5-16.0 Blood hematocrit (volume fraction) 28 % 35-52 Automated erythrocyte mean corpuscular volume 96 [ foz_us] 80-99 Automated erythrocyte mean corpuscular h emoglobin (mass per erythrocyte) 30 pg 25-34 Automated erythrocyte mean corpuscular h emoglobin concentration measurement (mass/volume) 31 g/dL 32-36 Automated erythrocyte distribution width ratio 13. 1 % 10.0- 14.5 Automated blood platelet count (count/volume) 261 10*3/uL [...] 10*3 1.0-4.0 Blood monocytes automated count (number/volume) 0. 8 10*3 0.0-1.0 Automated eosinophil count 0.3 10*3/uL 0 .0-0.3 Automated blood basophil count (count/volume) 0.0 10*3/uL 0.0-0.1 Serum or plasma phosphate measurement (m ass/volume) - 06/12/17 04:32 Serum or plasma phosphate measurement (mass/volume) 2.6 mg/dL 2.3-4.7 Whole blood basic metabolic panel - 05/30 12/14 04:32 Serum or plasma sodium measurement (moles/volume) 138 mmol/L 135-145 Serum or plasma potassium measurement (moles/volume) 4.5 mmol/L 3.6-5.0 Serum or plasma chloride measurement (moles/volume) 104 mmol/L 98-107 Carbon dioxide 25 mmol/L 21-32 Serum or plasma anion gap determination (moles/volume) 9 mmol/L 5-14 Serum or plasma urea nitrogen measurement (mass/volume ) 18 mg/dL 7-18 Serum or plasma creatinine measurement (mass/volume) 0.94 mg/dL 0.60-1.30 Serum or plasma urea nitrogen/creatinine mass ratio 19 NRG Serum or plasma creatinine measurement w ith calculation of estimated glomerular filtration rate 60 NRG Serum or plasma glucose measurement (mass/volume) 54 mg/dL 70-105 Serum or plasma calcium measurement (mass/volume) 8.9 mg/dL 8.5-10.1 Magnesium - 06/12/17 04:32 Magnesium 2.4 mg/dL 1.8-2.4 Capillary blood glucose measurement by g lucometer (mass/volume) - 06/12/17 06:50 Capillary blood glucose measurement by glucometer (mas s/volume) 125 mg/dL 70-110 Capillary blood glucose measurement by g lucometer (mass/volume) - 06/12/17 10:54 Capillary blood glucose measurement by glucometer (mas s/volume) 109 mg/dL 70-110 Automated blood complete blood count (he mogram) panel - 07/08/17 07:28 Blood leukocytes automated count (number/volume) 7.8 10*3/uL 4.3-11.0 Blood erythrocytes automated count (number/volume) 3.71 10*6/uL 4.35-5.85 Venous blood hemoglobin measurement (mass/volume) 11.1 g/dL 11.5-16.0 Blood hematocrit (volume fraction) 35 % 35-52 Automated erythrocyte mean corpuscular volume 93 [ foz_us] 80-99 Automated erythrocyte mean corpuscular h emoglobin (mass per erythrocyte) 30 pg 25-34 Automated erythrocyte mean corpuscular h emoglobin concentration measurement (mass/volume) 32 g/dL 32-36 Automated erythrocyte distribution width ratio 13. 8 % 10.0- 14.5 Automated blood platelet count (count/volume) 218 10*3/uL 130-400 Automated blood platelet mean volume measurement 11.6 [foz_us] 7.4-10.4 Complete urinalysis with reflex to cultu re - 07/08/17 07:28 Urine color determination YELLOW NRG Urine clarity determination VERY CLOUDY NRG Urine pH measurement by test strip 5 5-9 Specific gravity of urine by test strip 1.015 1.016-1.022 Urine protein assay by test strip, semi-quantitative 2+ NEGATIVE Urine glucose detection by automated test strip NE GATIVE NEGATIVE Erythrocytes detection in urine sediment by light micr oscopy 1+ NEGATIVE Urine ketones detection by automated test strip NE GATIVE NEGATIVE Urine nitrite detection by test strip NEGATIVE NEGATIVE Urine total bilirubin detection by test strip NEGA TIVE NEGATIVE Urine urobilinogen measurement by automated test strip (mass/volume) NORMAL NORMAL Urine leukocyte esterase detection by dipstick NEG ATIVE NEGATIVE Automated urine sediment erythrocyte cou nt by microscopy (number/high power field) RARE NRG Automated urine sediment leukocyte count by microscopy (number/high power field) NONE NRG Bacteria detection in urine sediment by light microsco py MODERATE NRG Squamous epithelial cells detection in u rine sediment by light microscopy >50 NRG Crystals detection in urine sediment by light microsco py NONE NRG Casts detection in urine sediment by light microscopy NONE NRG Mucus detection in urine sediment by light microscopy NEGATIVE NRG Complete urinalysis with reflex to culture NO NRG PT panel in platelet poor plasma by coag ulation assay - 07/08/17 07:28 Prothrombin time (PT) in platelet poor plasma by coagu lation assay 12.8 s 12.2-14.7 INR in platelet poor plasma or blood by coagulation as say 1.0 0.8-1.4 Activated partial thromboplastin time (a PTT) in platelet poor plasma bycoagulation assay - 07/08/17 07:28 Activated partial thromboplastin time (a PTT) in platelet poor plasma bycoagulation assay 27 s 24-35 Comprehensive metabolic panel - 07/08/17 07:28 Serum or plasma sodium measurement (moles/volume) 138 mmol/L 135-145 Serum or plasma potassium measurement (moles/volume) 4.4 mmol/L 3.6-5.0 Serum or plasma chloride measurement (moles/volume) 103 mmol/L 98-107 Carbon dioxide 26 mmol/L 21-32 Serum or plasma anion gap determination (moles/volume) 9 mmol/L 5-14 Serum or plasma urea nitrogen measurement (mass/volume ) 18 mg/dL 7-18 Serum or plasma creatinine measurement (mass/volume) 1.00 mg/dL 0.60-1.30 Serum or plasma urea nitrogen/creatinine mass ratio 18 NRG Serum or plasma creatinine measurement w ith calculation of estimated glomerular filtration rate 56 NRG Serum or plasma glucose measurement (mass/volume) 130 mg/dL 70-105 Serum or plasma calcium measurement (mass/volume) 8.9 mg/dL 8.5-10.1 Serum or plasma total bilirubin measurement (mass/volu me) 0.3 mg/dL 0.1-1.0 Serum or plasma alkaline phosphatase alex surement (enzymatic activity/volume) 100 U/L 40-136 Serum or plasma aspartate aminotransfera se measurement (enzymatic activity/volume) 14 U/L 5-34 Serum or plasma alanine aminotransferase measurement (enzymatic activity/volume) 12 U/L 0-55 Serum or plasma protein measurement (mass/volume) 7.6 g/dL 6.4-8.2 Serum or plasma albumin measurement (mass/volume) 3.7 g/dL 3.2-4.5 Lipid 1996 panel - 07/08/17 07:28 Serum or plasma triglyceride measurement (mass/volume) 179 mg/dL <150 Serum or plasma cholesterol measurement (mass/volume) 209 mg/dL < 200 Serum or plasma cholesterol in HDL measurement (mass/v olume) 51 mg/dL 40-60 Cholesterol in LDL [mass/volume] in serum or plasma by direct assay 129 mg/dL 1-129 Serum or plasma cholesterol in VLDL measurement (mass/ volume) 36 mg/dL 5-40 Methicillin resistant Staphylococcus aur eus (MRSA) screening culture - 07/08/17 07:28 Methicillin resistant Staphylococcus aureus (MRSA) scr eening culture NEG NRG Complete blood count (CBC) with automate d white blood cell (WBC) differential - 07/12/17 12:50 Blood leukocytes automated count (number/volume) 10.1 10*3/uL 4.3-11.0 Blood erythrocytes automated count (number/volume) 2.72 10*6/uL 4.35-5.85 Venous blood hemoglobin measurement (mass/volume) 8.2 g/dL 11.5-16.0 Blood hematocrit (volume fraction) 26 % 35-52 Automated erythrocyte mean corpuscular volume 96 [ foz_us] 80-99 Automated erythrocyte mean corpuscular h emoglobin (mass per erythrocyte) 30 pg 25-34 Automated erythrocyte mean corpuscular h emoglobin concentration measurement (mass/volume) 31 g/dL 32-36 Automated erythrocyte distribution width ratio 14. 2 % 10.0- 14.5 Automated blood platelet count (count/volume) 233 10*3/uL [...] 10*3 1.0-4.0 Blood monocytes automated count (number/volume) 0. 5 10*3 0.0-1.0 Automated eosinophil count 0.3 10*3/uL 0 .0-0.3 Automated blood basophil count (count/volume) 0.0 10*3/uL 0.0-0.1 Blood lactic acid measurement (moles/vol ume) - 07/12/17 12:50 Blood lactic acid measurement [...] 5-14 Serum or plasma urea nitrogen measurement (mass/volume ) 33 mg/dL 7-18 Serum or plasma creatinine measurement (mass/volume) 1.62 mg/dL 0.60-1.30 Serum or plasma urea nitrogen/creatinine mass ratio 20 NRG Serum or plasma creatinine measurement w ith calculation of estimated glomerular filtration rate 32 NRG Serum or plasma glucose measurement (mass/volume) 221 mg/dL 70-105 Serum or plasma calcium measurement (mass/volume) 8.5 mg/dL 8.5-10.1 Serum or plasma total bilirubin measurement (mass/volu me) 0.4 mg/dL 0.1-1.0 Serum or plasma alkaline phosphatase alex surement (enzymatic activity/volume) 105 U/L 40-136 Serum or plasma aspartate aminotransfera se measurement (enzymatic activity/volume) 12 U/L 5-34 Serum or plasma alanine aminotransferase measurement (enzymatic activity/volume) 12 U/L 0-55 Serum or plasma protein measurement (mass/volume) 7.2 g/dL 6.4-8.2 Serum or plasma albumin measurement (mass/volume) 3.6 g/dL 3.2-4.5 Bacterial blood culture - 07/12/17 12:50 Bacterial blood culture NG NRG Complete urinalysis with reflex to cultu re - 07/12/17 13:12 Urine color determination YELLOW NRG Urine clarity determination CLEAR NR G Urine pH measurement by test strip 5 5-9 Specific gravity of urine by test strip 1.025 1.016-1.022 Urine protein assay by test strip, semi-quantitative 1+ NEGATIVE Urine glucose detection by automated test strip NE GATIVE NEGATIVE Erythrocytes detection in urine sediment by light micr oscopy NEGATIVE NEGATIVE Urine ketones detection by automated test strip NE GATIVE NEGATIVE Urine nitrite detection by test strip NEGATIVE NEGATIVE Urine total bilirubin detection by test strip NEGA TIVE NEGATIVE Urine urobilinogen measurement by automated test strip (mass/volume) NORMAL NORMAL Urine leukocyte esterase detection by dipstick 1+ NEGATIVE Automated urine sediment erythrocyte cou nt by microscopy (number/high power field) NONE NRG Automated urine sediment leukocyte count by microscopy (number/high power field) [HPF] NRG Bacteria detection in urine sediment by light microsco py TRACE NRG Squamous epithelial cells detection in u rine sediment by light microscopy 0-2 NRG Crystals detection in urine sediment by light microsco py PRESENT NRG Casts detection in urine sediment by light microscopy NONE NRG Mucus detection in urine sediment by light microscopy NEGATIVE NRG Complete urinalysis with reflex to culture NO NRG Uric acid crystals detection in urine sediment by ligh t microscopy RARE NRG Bacterial blood culture - 07/12/17 13:15 Bacterial blood culture NG NRG Complete blood count (CBC) with automate d white blood cell (WBC) differential - 07/14/17 08:05 Blood leukocytes automated count (number/volume) 8.1 10*3/uL 4.3-11.0 Blood erythrocytes automated count (number/volume) 2.78 10*6/uL 4.35-5.85 Venous blood hemoglobin measurement (mass/volume) 8.4 g/dL 11.5-16.0 Blood hematocrit (volume fraction) 27 % 35-52 Automated erythrocyte mean corpuscular volume 95 [ foz_us] 80-99 Automated erythrocyte mean corpuscular h emoglobin (mass per erythrocyte) 30 pg 25-34 Automated erythrocyte mean corpuscular h emoglobin concentration measurement (mass/volume) 32 g/dL 32-36 Automated erythrocyte distribution width ratio 13. 7 % 10.0- 14.5 Automated blood platelet count (count/volume) 245 10*3/uL [...] 10*3 1.0-4.0 Blood monocytes automated count (number/volume) 0. 5 10*3 0.0-1.0 Automated eosinophil count 0.2 10*3/uL 0 .0-0.3 Automated blood basophil count (count/volume) 0.0 10*3/uL 0.0-0.1 Comprehensive metabolic panel - 07/14/17 08:05 Serum or plasma sodium measurement (moles/volume) 137 mmol/L 135-145 Serum or plasma potassium measurement (moles/volume) 5.4 mmol/L 3.6-5.0 Serum or plasma chloride measurement (moles/volume) 103 mmol/L 98-107 Carbon dioxide 28 mmol/L 21-32 Serum or plasma anion gap determination (moles/volume) 6 mmol/L 5-14 Serum or plasma urea nitrogen measurement (mass/volume ) 23 mg/dL 7-18 Serum or plasma creatinine measurement (mass/volume) 1.09 mg/dL 0.60-1.30 Serum or plasma urea nitrogen/creatinine mass ratio 21 NRG Serum or plasma creatinine measurement w ith calculation of estimated glomerular filtration rate 51 NRG Serum or plasma glucose measurement (mass/volume) 208 mg/dL 70-105 Serum or plasma calcium measurement (mass/volume) 8.9 mg/dL 8.5-10.1 Serum or plasma total bilirubin measurement (mass/volu me) 0.6 mg/dL 0.1-1.0 Serum or plasma alkaline phosphatase alex surement (enzymatic activity/volume) 97 U/L 40-136 Serum or plasma aspartate aminotransfera se measurement (enzymatic activity/volume) 14 U/L 5-34 Serum or plasma alanine aminotransferase measurement (enzymatic activity/volume) 13 U/L 0-55 Serum or plasma protein measurement (mass/volume) 7.1 g/dL 6.4-8.2 Serum or plasma albumin measurement (mass/volume) 3.6 g/dL 3.2-4.5 Serum or plasma C reactive protein measu rement (mass/volume) - 07/14/17 08:05 Serum or plasma C reactive protein measurement (mass/v olume) 4.03 mg/dL 0.00-0.50 Complete urinalysis with reflex to cultu re - 07/14/17 09:35 Urine color determination YELLOW NRG Urine clarity determination CLEAR NR G Urine pH measurement by test strip 5 5-9 Specific gravity of urine by test strip 1.010 1.016-1.022 Urine protein assay by test strip, semi-quantitative 1+ NEGATIVE Urine glucose detection by automated test strip 3+ NEGATIVE Erythrocytes detection in urine sediment by light micr oscopy NEGATIVE NEGATIVE Urine ketones detection by automated test strip NE GATIVE NEGATIVE Urine nitrite detection by test strip NEGATIVE NEGATIVE Urine total bilirubin detection by test strip NEGA TIVE NEGATIVE Urine urobilinogen measurement by automated test strip (mass/volume) NORMAL NORMAL Urine leukocyte esterase detection by dipstick NEG ATIVE NEGATIVE Automated urine sediment erythrocyte cou nt by microscopy (number/high power field) NONE NRG Automated urine sediment leukocyte count by microscopy (number/high power field) NONE NRG Bacteria detection in urine sediment by light microsco py NEGATIVE NRG Squamous epithelial cells detection in u rine sediment by light microscopy RARE NRG Crystals detection in urine sediment by light microsco py NONE NRG Casts detection in urine sediment by light microscopy NONE NRG Mucus detection in urine sediment by light microscopy NEGATIVE NRG Complete urinalysis with reflex to culture NO NRG Capillary blood glucose measurement by g lucometer (mass/volume) - 07/14/17 20:47 Capillary blood glucose measurement by glucometer (mas s/volume) 206 mg/dL 70-110 Capillary blood glucose measurement by g lucometer (mass/volume) - 07/15/17 05:30 Capillary blood glucose measurement by glucometer (mas s/volume) 101 mg/dL 70-110 Complete blood count (CBC) with automate d white blood cell (WBC) differential - 07/15/17 05:30 Blood leukocytes automated count (number/volume) 8.9 10*3/uL 4.3-11.0 Blood erythrocytes automated count (number/volume) 2.61 10*6/uL 4.35-5.85 Venous blood hemoglobin measurement (mass/volume) 7.9 g/dL 11.5-16.0 Blood hematocrit (volume fraction) 25 % 35-52 Automated erythrocyte mean corpuscular volume 95 [ foz_us] 80-99 Automated erythrocyte mean corpuscular h emoglobin (mass per erythrocyte) 30 pg 25-34 Automated erythrocyte mean corpuscular h emoglobin concentration measurement (mass/volume) 32 g/dL 32-36 Automated erythrocyte distribution width ratio 13. 5 % 10.0- 14.5 Automated blood platelet count (count/volume) 254 10*3/uL [...] 10*3 1.0-4.0 Blood monocytes automated count (number/volume) 0. 7 10*3 0.0-1.0 Automated eosinophil count 0.3 10*3/uL 0 .0-0.3 Automated blood basophil count (count/volume) 0.0 10*3/uL 0.0-0.1 Comprehensive metabolic panel - 07/15/17 05:30 Serum or plasma sodium measurement (moles/volume) 138 mmol/L 135-145 Serum or plasma potassium measurement (moles/volume) 5.0 mmol/L 3.6-5.0 Serum or plasma chloride measurement (moles/volume) 104 mmol/L 98-107 Carbon dioxide 27 mmol/L 21-32 Serum or plasma anion gap determination (moles/volume) 7 mmol/L 5-14 Serum or plasma urea nitrogen measurement (mass/volume ) 18 mg/dL 7-18 Serum or plasma creatinine measurement (mass/volume) 0.96 mg/dL 0.60-1.30 Serum or plasma urea nitrogen/creatinine mass ratio 19 NRG Serum or plasma creatinine measurement w ith calculation of estimated glomerular filtration rate 59 NRG Serum or plasma glucose measurement (mass/volume) 103 mg/dL 70-105 Serum or plasma calcium measurement (mass/volume) 8.6 mg/dL 8.5-10.1 Serum or plasma total bilirubin measurement (mass/volu me) 0.6 mg/dL 0.1-1.0 Serum or plasma alkaline phosphatase alex surement (enzymatic activity/volume) 87 U/L 40-136 Serum or plasma aspartate aminotransfera se measurement (enzymatic activity/volume) 11 U/L 5-34 Serum or plasma alanine aminotransferase measurement (enzymatic activity/volume) 9 U/L 0-55 Serum or plasma protein measurement (mass/volume) 6.5 g/dL 6.4-8.2 Serum or plasma albumin measurement (mass/volume) 3.1 g/dL 3.2-4.5 IRON TEST - 07/15/17 05:30 Serum or plasma iron measurement (mass/volume) 40 % 35-180 Capillary blood glucose measurement by g lucometer (mass/volume) - 07/15/17 10:59 Capillary blood glucose measurement by glucometer (mas s/volume) 157 mg/dL 70-110 Capillary blood glucose measurement by g lucometer (mass/volume) - 07/15/17 16:21 Capillary blood glucose measurement by glucometer (mas s/volume) 266 mg/dL 70-110 Complete blood count (CBC) with automate d white blood cell (WBC) differential - 07/16/17 05:08 Blood leukocytes automated count (number/volume) 8.6 10*3/uL 4.3-11.0 Blood erythrocytes automated count (number/volume) 2.53 10*6/uL 4.35-5.85 Venous blood hemoglobin measurement (mass/volume) 7.4 g/dL 11.5-16.0 Blood hematocrit (volume fraction) 25 % 35-52 Automated erythrocyte mean corpuscular volume 98 [ foz_us] 80-99 Automated erythrocyte mean corpuscular h emoglobin (mass per erythrocyte) 29 pg 25-34 Automated erythrocyte mean corpuscular h emoglobin concentration measurement (mass/volume) 30 g/dL 32-36 Automated erythrocyte distribution width ratio 14. 1 % 10.0- 14.5 Automated blood platelet count (count/volume) 258 10*3/uL [...] 10*3 1.0-4.0 Blood monocytes automated count (number/volume) 0. 9 10*3 0.0-1.0 Automated eosinophil count 0.3 10*3/uL 0 .0-0.3 Automated blood basophil count (count/volume) 0.0 10*3/uL 0.0-0.1 Comprehensive metabolic panel - 07/16/17 05:08 Serum or plasma sodium measurement (moles/volume) 140 mmol/L 135-145 Serum or plasma potassium measurement (moles/volume) 5.2 mmol/L 3.6-5.0 Serum or plasma chloride measurement (moles/volume) 105 mmol/L 98-107 Carbon dioxide 29 mmol/L 21-32 Serum or plasma anion gap determination (moles/volume) 6 mmol/L 5-14 Serum or plasma urea nitrogen measurement (mass/volume ) 21 mg/dL 7-18 Serum or plasma creatinine measurement (mass/volume) 1.22 mg/dL 0.60-1.30 Serum or plasma urea nitrogen/creatinine mass ratio 17 NRG Serum or plasma creatinine measurement w ith calculation of estimated glomerular filtration rate 45 NRG Serum or plasma glucose measurement (mass/volume) 84 mg/dL 70-105 Serum or plasma calcium measurement (mass/volume) 8.4 mg/dL 8.5-10.1 Serum or plasma total bilirubin measurement (mass/volu me) 0.6 mg/dL 0.1-1.0 Serum or plasma alkaline phosphatase alex surement (enzymatic activity/volume) 79 U/L 40-136 Serum or plasma aspartate aminotransfera se measurement (enzymatic activity/volume) 10 U/L 5-34 Serum or plasma alanine aminotransferase measurement (enzymatic activity/volume) 9 U/L 0-55 Serum or plasma protein measurement (mass/volume) 6.2 g/dL 6.4-8.2 Serum or plasma albumin measurement (mass/volume) 3.0 g/dL 3.2-4.5 Capillary blood glucose measurement by g lucometer (mass/volume) - 07/16/17 05:14 Capillary blood glucose measurement by glucometer (mas s/volume) 84 mg/dL 70-110 Capillary blood glucose measurement by g lucometer (mass/volume) - 07/16/17 11:03 Capillary blood glucose measurement by glucometer (mas s/volume) 122 mg/dL 70-110 Capillary blood glucose measurement by g lucometer (mass/volume) - 05/25/18 06:46 Capillary blood glucose measurement by glucometer (mas s/volume) 75 mg/dL 70-110 Complete blood count (CBC) with automate d white blood cell (WBC) differential - 09/08/18 12:30 Blood leukocytes automated count (number/volume) 8.2 10*3/uL 4.3-11.0 Blood erythrocytes automated count (number/volume) 3.65 10*6/uL 4.35-5.85 Venous blood hemoglobin measurement (mass/volume) 11.0 g/dL 11.5-16.0 Blood hematocrit (volume fraction) 35 % 35-52 Automated erythrocyte mean corpuscular volume 95 [ foz_us] 80-99 Automated erythrocyte mean corpuscular h emoglobin (mass per erythrocyte) 30 pg 25-34 Automated erythrocyte mean corpuscular h emoglobin concentration measurement (mass/volume) 32 g/dL 32-36 Automated erythrocyte distribution width ratio 12. 9 % 10.0- 14.5 Automated blood platelet count (count/volume) 277 10*3/uL 130-400 Automated blood platelet mean volume measurement 11.3 [foz_us] 7.4-10.4 Automated blood neutrophils/100 leukocytes 61 % 42-75 Automated blood lymphocytes/100 leukocytes 30 % 12-44 Blood monocytes/100 leukocytes 6 % 0-12 Automated blood eosinophils/100 leukocytes 3 % 0-10 Automated blood basophils/100 leukocytes 0 % 0-10 Blood neutrophils automated count (number/volume) 5.0 10*3 1.8-7.8 Blood lymphocytes automated count (number/volume) 2.4 10*3 1.0-4.0 Blood monocytes automated count (number/volume) 0. 5 10*3 0.0-1.0 Automated eosinophil count 0.2 10*3/uL 0 .0-0.3 Automated blood basophil count (count/volume) 0.0 10*3/uL 0.0-0.1 Comprehensive metabolic panel - 09/08/18 12:30 Serum or plasma sodium measurement (moles/volume) 138 mmol/L 135-145 Serum or plasma potassium measurement (moles/volume) 5.4 mmol/L 3.6-5.0 Serum or plasma chloride measurement (moles/volume) 106 mmol/L 98-107 Carbon dioxide 24 mmol/L 21-32 Serum or plasma anion gap determination (moles/volume) 8 mmol/L 5-14 Serum or plasma urea nitrogen measurement (mass/volume ) 18 mg/dL 7-18 Serum or plasma creatinine measurement (mass/volume) 1.37 mg/dL 0.60-1.30 Serum or plasma urea nitrogen/creatinine mass ratio 13 NRG Serum or plasma creatinine measurement w ith calculation of estimated glomerular filtration rate 39 NRG Serum or plasma glucose measurement (mass/volume) 68 mg/dL 70-105 Serum or plasma calcium measurement (mass/volume) 8.7 mg/dL 8.5-10.1 Serum or plasma total bilirubin measurement (mass/volu me) 0.3 mg/dL 0.1-1.0 Serum or plasma alkaline phosphatase alex surement (enzymatic activity/volume) 108 U/L 40-136 Serum or plasma aspartate aminotransfera se measurement (enzymatic activity/volume) 15 U/L 5-34 Serum or plasma alanine aminotransferase measurement (enzymatic activity/volume) 11 U/L 0-55 Serum or plasma protein measurement (mass/volume) 7.6 g/dL 6.4-8.2 Serum or plasma albumin measurement (mass/volume) 4.0 g/dL 3.2-4.5 CALCIUM CORRECTED 8.7 mg/dL 8.5-10.1 Hemoglobin A1c - 09/08/18 12:30 Blood hemoglobin A1C measurement (mass/volume) 8.8 % 4.0-5.6 MEAN BLOOD GLUCOSE 206 % <=126 Bacteria identification in isolate by an aerobe culture - 09/12/18 11:18 Bacteria identification in isolate by anaerobe culture NOANA NRG Gram stain microscopy - 09/12/18 11:18 Gram stain microscopy No bacteria seen NRG Bacteria identification in wound by cult ure - 09/12/18 11:18 Bacteria identification in wound by culture [id number] NRG FREE TEXT EXTERNAL RML SENT SENSITIVITY REPORT 08/30 12:05 NRG QUANTITY OF GROWTH Rare NRG RML Sensitivity Panel - 09/12/18 11:18 Oxacillin susceptibility test by minimum inhibitory co ncentration >= NRG Clindamycin susceptibility test by minimum inhibitory concentration R NRG Erythromycin susceptibility test by minimum inhibitory concentration > NRG Vancomycin susceptibility test by minimum inhibitory c oncentration 1 NRG Levofloxacin susceptibility test by minimum inhibitory concentration <= NRG Rifampin susceptibility test by minimum inhibitory con centration <= NRG Cefazolin susceptibility test by minimum inhibitory co ncentration R NRG Linezolid susceptibility test by minimum inhibitory co ncentration 2 NRG Penicillin G susceptibility test by minimum inhibitory concentration > NRG Moxifloxacin susceptibility test by minimum inhibitory concentration S NRG Minocycline susc KULWANT <= NRG Bacteria identification in isolate by an aerobe culture - 09/28/18 13:18 Bacteria identification in isolate by anaerobe culture NOANA NRG Gram stain microscopy - 09/28/18 13:18 Gram stain microscopy No bacteria seen NRG Bacteria identification in wound by cult ure - 09/28/18 13:18 Bacteria identification in wound by culture [id number] NRG FREE TEXT EXTERNAL NO SUSCEPTIBILITY PERFORMED NRG QUANTITY OF GROWTH Rare NRG Gram stain microscopy - 03/31/19 09:57 Gram stain microscopy No bacteria seen NRG Bacteria identification in wound by cult ure - 03/31/19 09:57 Bacteria identification in wound by culture [id number] NRG FREE TEXT EXTERNAL SUSCEPTIBILITY REPORTED 04/02/19 10:05 NRG QUANTITY OF GROWTH Moderate Growth NRG FREE TEXT ENTRY 2 ID REPORTED 04/01/19 12:05 NRG FREE TEXT ENTRY 3 CALLED TO PEPE/WD CARE 04/04/19 14: 25 NRG Dirithromycin susceptibility test by dis k diffusion - 03/31/19 09:57 Oxacillin susceptibility test by minimum inhibitory co ncentration > NRG Clindamycin susceptibility test by minimum inhibitory concentration <= NRG Erythromycin susceptibility test by minimum inhibitory concentration > NRG Trimethoprim/sulfamethoxazole susceptibi lity test by minimum inhibitoryconcentration <= NRG Vancomycin susceptibility test by minimum inhibitory c oncentration 1 NRG Levofloxacin susceptibility test by minimum inhibitory concentration <= NRG Rifampin susceptibility test by minimum inhibitory con centration <= NRG Cefazolin susceptibility test by minimum inhibitory co ncentration > NRG Linezolid susceptibility test by minimum inhibitory co ncentration 2 NRG Penicillin G susceptibility test by minimum inhibitory concentration > NRG Moxifloxacin susceptibility test by minimum inhibitory concentration <= NRG Minocycline susc KULWANT <= NRG Hemoglobin A1c measurement - 04/19/19 11 :08 Blood hemoglobin A1C measurement (mass/volume) 8.0 % 4.0-5.6 MEAN BLOOD GLUCOSE 183 % <=126 Capillary blood glucose measurement by g lucometer (mass/volume) - 04/19/19 12:51 Capillary blood glucose measurement by glucometer (mas s/volume) 77 mg/dL 70-110 Complete blood count (CBC) with automate d white blood cell (WBC) differential - 04/19/19 13:06 Blood leukocytes automated count (number/volume) 7.6 10*3/uL 4.3-11.0 Blood erythrocytes automated count (number/volume) 3.49 10*6/uL 4.35-5.85 Venous blood hemoglobin measurement (mass/volume) 10.3 g/dL 11.5-16.0 Blood hematocrit (volume fraction) 33 % 35-52 Automated erythrocyte mean corpuscular volume 93 [ foz_us] 80-99 Automated erythrocyte mean corpuscular h emoglobin (mass per erythrocyte) 30 pg 25-34 Automated erythrocyte mean corpuscular h emoglobin concentration measurement (mass/volume) 32 g/dL 32-36 Automated erythrocyte distribution width ratio 13. 5 % 10.0- 14.5 Automated blood platelet count (count/volume) 226 10*3/uL 130-400 Automated blood platelet mean volume measurement 11.4 [foz_us] 7.4-10.4 Automated blood neutrophils/100 leukocytes 63 % 42-75 Automated blood lymphocytes/100 leukocytes 28 % 12-44 Blood monocytes/100 leukocytes 7 % 0-12 Automated blood eosinophils/100 leukocytes 2 % 0-10 Automated blood basophils/100 leukocytes 1 % 0-10 Blood neutrophils automated count (number/volume) 4.7 10*3 1.8-7.8 Blood lymphocytes automated count (number/volume) 2.2 10*3 1.0-4.0 Blood monocytes automated count (number/volume) 0. 5 10*3 0.0-1.0 Automated eosinophil count 0.1 10*3/uL 0 .0-0.3 Automated blood basophil count (count/volume) 0.0 10*3/uL 0.0-0.1 Comprehensive metabolic panel - 04/19/19 13:06 Serum or plasma sodium measurement (moles/volume) 139 mmol/L 135-145 Serum or plasma potassium measurement (moles/volume) 4.8 mmol/L 3.6-5.0 Serum or plasma chloride measurement (moles/volume) 106 mmol/L 98-107 Carbon dioxide 30 mmol/L 21-32 Serum or plasma anion gap determination (moles/volume) 3 mmol/L 5-14 Serum or plasma urea nitrogen measurement (mass/volume ) 16 mg/dL 7-18 Serum or plasma creatinine measurement (mass/volume) 1.19 mg/dL 0.60-1.30 Serum or plasma urea nitrogen/creatinine mass ratio 13 NRG Serum or plasma creatinine measurement w ith calculation of estimated glomerular filtration rate 46 NRG Serum or plasma glucose measurement (mass/volume) 78 mg/dL 70-105 Serum or plasma calcium measurement (mass/volume) 8.5 mg/dL 8.5-10.1 Serum or plasma total bilirubin measurement (mass/volu me) 0.3 mg/dL 0.1-1.0 Serum or plasma alkaline phosphatase alex surement (enzymatic activity/volume) 123 U/L 40-136 Serum or plasma aspartate aminotransfera se measurement (enzymatic activity/volume) 14 U/L 5-34 Serum or plasma alanine aminotransferase measurement (enzymatic activity/volume) 9 U/L 0-55 Serum or plasma protein measurement (mass/volume) 7.2 g/dL 6.4-8.2 Serum or plasma albumin measurement (mass/volume) 3.7 g/dL 3.2-4.5 CALCIUM CORRECTED 8.7 mg/dL 8.5-10.1 Magnesium - 04/19/19 13:06 Magnesium 1.7 mg/dL 1.6-2.4 Serum or plasma creatine kinase measurem ent (enzymatic activity/volume) - 04/19/19 13:06 Serum or plasma creatine kinase measurem ent (enzymatic activity/volume) 62 U/L 29-168 Serum or plasma lithium measurement (mol es/volume) - 04/19/19 13:06 BNP PT 22.1 pg/mL <100.0 Serum or plasma creatine kinase MB measu rement (enzymatic activity/volume) - 04/19/19 13:06 Serum or plasma creatine kinase MB measu rement (enzymatic activity/volume) 3.3 ng/mL <6.6 Serum or plasma troponin i.cardiac measu rement (mass/volume) - 04/19/19 13:06 Serum or plasma troponin i.cardiac measurement (mass/v olume) < ng/mL <0.028 Myoglobin, serum - 04/19/19 13:06 Myoglobin, serum 89.9 ng/mL 10.0-92.0 Serum or plasma thyrotropin measurement by detection limit <=0.05 miu/l (units/volume) - 04/19/19 13:06 Serum or plasma thyrotropin measurement by detection limit <=0.05 miu/l (units/volume) 1.45 u[iU]/mL 0.35-4.94 Complete urinalysis with reflex to cultu re - 04/19/19 13:44 Urine color determination YELLOW NRG Urine clarity determination CLEAR NR G Urine pH measurement by test strip 5 5-9 Specific gravity of urine by test strip 1.015 1.016-1.022 Urine protein assay by test strip, semi-quantitative NEGATIVE NEGATIVE Urine glucose detection by automated test strip NE GATIVE NEGATIVE Erythrocytes detection in urine sediment by light micr oscopy NEGATIVE NEGATIVE Urine ketones detection by automated test strip NE GATIVE NEGATIVE Urine nitrite detection by test strip NEGATIVE NEGATIVE Urine total bilirubin detection by test strip NEGA TIVE NEGATIVE Urine urobilinogen measurement by automated test strip (mass/volume) NORMAL NORMAL Urine leukocyte esterase detection by dipstick NEG ATIVE NEGATIVE Automated urine sediment erythrocyte cou nt by microscopy (number/high power field) NONE NRG Automated urine sediment leukocyte count by microscopy (number/high power field) RARE NRG Bacteria detection in urine sediment by light microsco py NEGATIVE NRG Squamous epithelial cells detection in u rine sediment by light microscopy 5-10 NRG Crystals detection in urine sediment by light microsco py NONE NRG Casts detection in urine sediment by light microscopy NONE NRG Mucus detection in urine sediment by light microscopy NEGATIVE NRG Complete urinalysis with reflex to culture NO NRG Capillary blood glucose measurement by g lucometer (mass/volume) - 04/19/19 16:14 Capillary blood glucose measurement by glucometer (mas s/volume) 106 mg/dL 70-110 Complete blood count (CBC) with automate d white blood cell (WBC) differential - 06/18/19 16:25 Blood leukocytes automated count (number/volume) 6.5 10*3/uL 4.3-11.0 Blood erythrocytes automated count (number/volume) 3.17 10*6/uL 4.35-5.85 Venous blood hemoglobin measurement (mass/volume) 9.9 g/dL 11.5-16.0 Blood hematocrit (volume fraction) 30 % 35-52 Automated erythrocyte mean corpuscular volume 94 [ foz_us] 80-99 Automated erythrocyte mean corpuscular h emoglobin (mass per erythrocyte) 31 pg 25-34 Automated erythrocyte mean corpuscular h emoglobin concentration measurement (mass/volume) 33 g/dL 32-36 Automated erythrocyte distribution width ratio 18. 0 % 10.0- 14.5 Automated blood platelet count (count/volume) 285 10*3/uL 130-400 Automated blood platelet mean volume measurement 10.8 [foz_us] 7.4-10.4 Automated blood neutrophils/100 leukocytes 81 % 42-75 Automated blood lymphocytes/100 leukocytes 7 % 12-44 Blood monocytes/100 leukocytes 11 % 0-12 Automated blood eosinophils/100 leukocytes 0 % 0-10 Automated blood basophils/100 leukocytes 0 % 0-10 Blood neutrophils automated count (number/volume) 5.3 10*3 1.8-7.8 Blood lymphocytes automated count (number/volume) 0.5 10*3 1.0-4.0 Blood monocytes automated count (number/volume) 0. 7 10*3 0.0-1.0 Automated eosinophil count 0.0 10*3/uL 0 .0-0.3 Automated blood basophil count (count/volume) 0.0 10*3/uL 0.0-0.1 Comprehensive metabolic panel - 06/18/19 16:25 Serum or plasma sodium measurement (moles/volume) 136 mmol/L 135-145 Serum or plasma potassium measurement (moles/volume) 4.0 mmol/L 3.6-5.0 Serum or plasma chloride measurement (moles/volume) 99 mmol/L 98-107 Carbon dioxide 27 mmol/L 21-32 Serum or plasma anion gap determination (moles/volume) 10 mmol/L 5-14 Serum or plasma urea nitrogen measurement (mass/volume ) 16 mg/dL 7-18 Serum or plasma creatinine measurement (mass/volume) 0.96 mg/dL 0.60-1.30 Serum or plasma urea nitrogen/creatinine mass ratio 17 NRG Serum or plasma creatinine measurement w ith calculation of estimated glomerular filtration rate 59 NRG Serum or plasma glucose measurement (mass/volume) 99 mg/dL 70-105 Serum or plasma calcium measurement (mass/volume) 8.0 mg/dL 8.5-10.1 Serum or plasma total bilirubin measurement (mass/volu me) 0.5 mg/dL 0.1-1.0 Serum or plasma alkaline phosphatase alex surement (enzymatic activity/volume) 84 U/L 40-136 Serum or plasma aspartate aminotransfera se measurement (enzymatic activity/volume) 13 U/L 5-34 Serum or plasma alanine aminotransferase measurement (enzymatic activity/volume) 13 U/L 0-55 Serum or plasma protein measurement (mass/volume) 6.3 g/dL 6.4-8.2 Serum or plasma albumin measurement (mass/volume) 3.5 g/dL 3.2-4.5 CALCIUM CORRECTED 8.4 mg/dL 8.5-10.1 Manual absolute plasma cell count - 05/31 16:25 Blood monocytes/100 leukocytes 8 % NRG Manual blood segmented neutrophils/100 leukocytes 88 % NRG Manual blood lymphocytes/100 leukocytes 3 % NRG Blood anisocytosis detection by light microscopy S LIGHT NRG Blood macrocytes detection by light microscopy [facility] Blood toxic granules detection by light microscopy 1+ NRG Manual blood nucleated erythrocytes/100 leukocytes ratio 1 NRG Blood hypochromia detection by light microscopy [facility] NR Blood microcytes detection by light microscopy [facility] NR Blood spherocytes detection by light microscopy [facility] Complete urinalysis with reflex to cultu re - 06/18/19 17:13 Urine color determination YELLOW NRG Urine clarity determination CLEAR NR G Urine pH measurement by test strip 8 5-9 Specific gravity of urine by test strip 1.010 1.016-1.022 Urine protein assay by test strip, semi-quantitative 2+ NEGATIVE Urine glucose detection by automated test strip NE GATIVE NEGATIVE Erythrocytes detection in urine sediment by light micr oscopy NEGATIVE NEGATIVE Urine ketones detection by automated test strip NE GATIVE NEGATIVE Urine nitrite detection by test strip NEGATIVE NEGATIVE Urine total bilirubin detection by test strip NEGA TIVE NEGATIVE Urine urobilinogen measurement by automated test strip (mass/volume) NORMAL NORMAL Urine leukocyte esterase detection by dipstick 1+ NEGATIVE Automated urine sediment erythrocyte cou nt by microscopy (number/high power field) NONE NRG Automated urine sediment leukocyte count by microscopy (number/high power field) [HPF] NRG Bacteria detection in urine sediment by light microsco py LARGE NRG Squamous epithelial cells detection in u rine sediment by light microscopy 5-10 NRG Crystals detection in urine sediment by light microsco py PRESENT NRG Casts detection in urine sediment by light microscopy NONE NRG Mucus detection in urine sediment by light microscopy NEGATIVE NRG Complete urinalysis with reflex to culture YES NRG Triple phosphate crystals detection in u rine sediment by light microscopy LARGE NRG Bacterial urine culture - 06/18/19 17:13 Bacterial urine culture [id number] NRG COLONY COUNT >100,000/ML NRG FTX;REPORTABLE SUSCEPTIBILITY REPORTED 06/20 09:35 NRG Dirithromycin susceptibility test by dis k diffusion - 06/18/19 17:13 Gentamicin susceptibility test by minimum inhibitory c oncentration > NRG Trimethoprim/sulfamethoxazole susceptibi lity test by minimum inhibitoryconcentration > NRG Levofloxacin susceptibility test by minimum inhibitory concentration > NRG Ampicillin susceptibility test by minimum inhibitory c oncentration <= NRG Cefazolin susceptibility test by minimum inhibitory co ncentration 4 NRG Ceftriaxone susceptibility test by minimum inhibitory concentration <= NRG Ciprofloxacin susceptibility test by minimum inhibitor y concentration > NRG Nitrofurantoin susceptibility test by mi nimum inhibitory concentration > NRG Amoxicillin and clavulanate potassium susc KULWANT <= NRG Blood lactic acid measurement (moles/vol ume) - 06/18/19 17:38 Blood lactic acid measurement (moles/volume) 0.75 mmol/L 0.50-2.00 Bacterial blood culture - 06/18/19 17:38 Bacterial blood culture NG NRG Bacterial blood culture - 06/18/19 18:04 Bacterial blood culture NG [facility] Complete blood count (CBC) with automate d white blood cell (WBC) differential - 06/19/19 05:50 Blood leukocytes automated count (number/volume) 4.4 10*3/uL 4.3-11.0 Blood erythrocytes automated count (number/volume) 2.82 10*6/uL 4.35-5.85 Venous blood hemoglobin measurement (mass/volume) 8.9 g/dL 11.5-16.0 Blood hematocrit (volume fraction) 27 % 35-52 Automated erythrocyte mean corpuscular volume 95 [ foz_us] 80-99 Automated erythrocyte mean corpuscular h emoglobin (mass per erythrocyte) 32 pg 25-34 Automated erythrocyte mean corpuscular h emoglobin concentration measurement (mass/volume) 33 g/dL 32-36 Automated erythrocyte distribution width ratio 18. 1 % 10.0- 14.5 Automated blood platelet count (count/volume) 251 10*3/uL 130-400 Automated blood platelet mean volume measurement 10.0 [foz_us] 7.4-10.4 Automated blood neutrophils/100 leukocytes 69 % 42-75 Automated blood lymphocytes/100 leukocytes 16 % 12-44 Blood monocytes/100 leukocytes 14 % 0-12 Automated blood eosinophils/100 leukocytes 1 % 0-10 Automated blood basophils/100 leukocytes 0 % 0-10 Blood neutrophils automated count (number/volume) 3.0 10*3 1.8-7.8 Blood lymphocytes automated count (number/volume) 0.7 10*3 1.0-4.0 Blood monocytes automated count (number/volume) 0. 6 10*3 0.0-1.0 Automated eosinophil count 0.0 10*3/uL 0 .0-0.3 Automated blood basophil count (count/volume) 0.0 10*3/uL 0.0-0.1 Comprehensive metabolic panel - 06/19/19 05:50 Serum or plasma sodium measurement (moles/volume) 138 mmol/L 135-145 Serum or plasma potassium measurement (moles/volume) 3.8 mmol/L 3.6-5.0 Serum or plasma chloride measurement (moles/volume) 104 mmol/L 98-107 Carbon dioxide 27 mmol/L 21-32 Serum or plasma anion gap determination (moles/volume) 7 mmol/L 5-14 Serum or plasma urea nitrogen measurement (mass/volume ) 14 mg/dL 7-18 Serum or plasma creatinine measurement (mass/volume) 0.94 mg/dL 0.60-1.30 Serum or plasma urea nitrogen/creatinine mass ratio 15 NRG Serum or plasma creatinine measurement w ith calculation of estimated glomerular filtration rate 60 NRG Serum or plasma glucose measurement (mass/volume) 93 mg/dL 70-105 Serum or plasma calcium measurement (mass/volume) 7.6 mg/dL 8.5-10.1 Serum or plasma total bilirubin measurement (mass/volu me) 0.4 mg/dL 0.1-1.0 Serum or plasma alkaline phosphatase alex surement (enzymatic activity/volume) 83 U/L 40-136 Serum or plasma aspartate aminotransfera se measurement (enzymatic activity/volume) 14 U/L 5-34 Serum or plasma alanine aminotransferase measurement (enzymatic activity/volume) 11 U/L 0-55 Serum or plasma protein measurement (mass/volume) 5.6 g/dL 6.4-8.2 Serum or plasma albumin measurement (mass/volume) 3.2 g/dL 3.2-4.5 CALCIUM CORRECTED 8.2 mg/dL 8.5-10.1 Capillary blood glucose measurement by g lucometer (mass/volume) - 06/19/19 21:07 Capillary blood glucose measurement by glucometer (mas s/volume) 112 mg/dL 70-110 Gram stain microscopy - 07/26/19 10:45 Gram stain microscopy NO BACTERIA SEEN NRG Bacteria identification in wound by cult ure - 07/26/19 10:45 Bacteria identification in wound by culture SEE CO MMEN NRG FREE TEXT EXTERNAL ACI. BAUMANNII/CALCOACETICUS CO MPLEX NRG QUANTITY OF GROWTH . NRG FREE TEXT ENTRY 2 MULTI DRUG RESISTANT ORGANISM NRG FREE TEXT ENTRY 3 CONTACT PRECAUTIONS N RG Dirithromycin susceptibility test by dis k diffusion - 07/26/19 10:45 Oxacillin susceptibility test by minimum inhibitory co ncentration <= NRG Clindamycin susceptibility test by minimum inhibitory concentration > NRG Erythromycin susceptibility test by minimum inhibitory concentration <= NRG Vancomycin susceptibility test by minimum inhibitory c oncentration 1 NRG Levofloxacin susceptibility test by minimum inhibitory concentration > NRG Rifampin susceptibility test by minimum inhibitory con centration <= NRG Cefazolin susceptibility test by minimum inhibitory co ncentration S NRG Linezolid susceptibility test by minimum inhibitory co ncentration <= NRG Penicillin G susceptibility test by minimum inhibitory concentration > NRG Moxifloxacin susceptibility test by minimum inhibitory concentration 2 NRG Minocycline susc KULWANT <= NRG Dirithromycin susceptibility test by dis k diffusion - 07/26/19 10:45 Oxacillin susceptibility test by minimum inhibitory co ncentration > NRG Clindamycin susceptibility test by minimum inhibitory concentration > NRG Erythromycin susceptibility test by minimum inhibitory concentration > NRG Vancomycin susceptibility test by minimum inhibitory c oncentration 2 NRG Levofloxacin susceptibility test by minimum inhibitory concentration <= NRG Rifampin susceptibility test by minimum inhibitory con centration <= NRG Cefazolin susceptibility test by minimum inhibitory co ncentration R NRG Linezolid susceptibility test by minimum inhibitory co ncentration 2 NRG Penicillin G susceptibility test by minimum inhibitory concentration > NRG Moxifloxacin susceptibility test by minimum inhibitory concentration S NRG Minocycline susc KULWANT <= NRG Dirithromycin susceptibility test by dis k diffusion - 07/26/19 10:45 Gentamicin susceptibility test by minimum inhibitory c oncentration 8 NRG Trimethoprim/sulfamethoxazole susceptibi lity test by minimum inhibitoryconcentration R NRG Levofloxacin susceptibility test by minimum inhibitory concentration R NRG Ceftriaxone susceptibility test by minimum inhibitory concentration R NRG Ciprofloxacin susceptibility test by minimum inhibitor y concentration R NRG Meropenem susceptibility test by minimum inhibitory co ncentration R NRG Cefepime susceptibility test by minimum inhibitory con centration 8 NRG Imipenem susceptibility test by minimum inhibitory con centration R NRG Prealbumin - 08/09/19 10:12 Serum or plasma prealbumin measurement (mass/volume) 23.0 % 18.0-37.0 Hemoglobin A1c measurement - 09/07/19 14 :46 Blood hemoglobin A1C measurement (mass/volume) 5.6 % 4.0-5.6 MEAN BLOOD GLUCOSE 114 % <=126 Gram stain microscopy - 09/19/19 10:12 Gram stain microscopy No bacteria seen NRG Bacteria identification in wound by cult ure - 09/19/19 10:12 Bacteria identification in wound by culture [id number] NR FREE TEXT EXTERNAL SUSCEPTIBILITIES REPORTED 1026 NRG QUANTITY OF GROWTH Rare NRG Dirithromycin susceptibility test by dis k diffusion - 09/19/19 10:12 Oxacillin susceptibility test by minimum inhibitory co ncentration <= NRG Clindamycin susceptibility test by minimum inhibitory concentration > NRG Erythromycin susceptibility test by minimum inhibitory concentration <= NRG Vancomycin susceptibility test by minimum inhibitory c oncentration 1 NRG Levofloxacin susceptibility test by minimum inhibitory concentration > NRG Rifampin susceptibility test by minimum inhibitory con centration <= NRG Cefazolin susceptibility test by minimum inhibitory co ncentration <= NRG Linezolid susceptibility test by minimum inhibitory co ncentration <= NRG Penicillin G susceptibility test by minimum inhibitory concentration 0.5 NRG Moxifloxacin susceptibility test by minimum inhibitory concentration 2 NRG Minocycline susc KULWANT <= NRG Complete blood count (CBC) with automate d white blood cell (WBC) differential - 01/08/20 16:00 Blood leukocytes automated count (number/volume) 6.4 10*3/uL 4.3-11.0 Blood erythrocytes automated count (number/volume) 3.75 10*6/uL 4.35-5.85 Venous blood hemoglobin measurement (mass/volume) 11.3 g/dL 11.5-16.0 Blood hematocrit (volume fraction) 35 % 35-52 Automated erythrocyte mean corpuscular volume 94 [ foz_us] 80-99 Automated erythrocyte mean corpuscular h emoglobin (mass per erythrocyte) 30 pg 25-34 Automated erythrocyte mean corpuscular h emoglobin concentration measurement (mass/volume) 32 g/dL 32-36 Automated erythrocyte distribution width ratio 14. 0 % 10.0- 14.5 Automated blood platelet count (count/volume) 249 10*3/uL 130-400 Automated blood platelet mean volume measurement 10.3 [foz_us] 7.4-10.4 Automated blood neutrophils/100 leukocytes 78 % 42-75 Automated blood lymphocytes/100 leukocytes 14 % 12-44 Blood monocytes/100 leukocytes 6 % 0-12 Automated blood eosinophils/100 leukocytes 2 % 0-10 Automated blood basophils/100 leukocytes 0 % 0-10 Blood neutrophils automated count (number/volume) 5.0 10*3 1.8-7.8 Blood lymphocytes automated count (number/volume) 0.9 10*3 1.0-4.0 Blood monocytes automated count (number/volume) 0. 4 10*3 0.0-1.0 Automated eosinophil count 0.1 10*3/uL 0 .0-0.3 Automated blood basophil count (count/volume) 0.0 10*3/uL 0.0-0.1 Comprehensive metabolic panel - 01/08/20 16:00 Serum or plasma sodium measurement (moles/volume) 140 mmol/L 135-145 Serum or plasma potassium measurement (moles/volume) 4.7 mmol/L 3.6-5.0 Serum or plasma chloride measurement (moles/volume) 106 mmol/L 98-107 Carbon dioxide 25 mmol/L 21-32 Serum or plasma anion gap determination (moles/volume) 9 mmol/L 5-14 Serum or plasma urea nitrogen measurement (mass/volume ) 15 mg/dL 7-18 Serum or plasma creatinine measurement (mass/volume) 0.97 mg/dL 0.60-1.30 Serum or plasma urea nitrogen/creatinine mass ratio 15 NRG Serum or plasma creatinine measurement w ith calculation of estimated glomerular filtration rate 58 NRG Serum or plasma glucose measurement (mass/volume) 129 mg/dL 70-105 Serum or plasma calcium measurement (mass/volume) 8.6 mg/dL 8.5-10.1 Serum or plasma total bilirubin measurement (mass/volu me) 0.2 mg/dL 0.1-1.0 Serum or plasma alkaline phosphatase alex surement (enzymatic activity/volume) 99 U/L 40-136 Serum or plasma aspartate aminotransfera se measurement (enzymatic activity/volume) 13 U/L 5-34 Serum or plasma alanine aminotransferase measurement (enzymatic activity/volume) 9 U/L 0-55 Serum or plasma protein measurement (mass/volume) 7.0 g/dL 6.4-8.2 Serum or plasma albumin measurement (mass/volume) 3.9 g/dL 3.2-4.5 CALCIUM CORRECTED 8.7 mg/dL 8.5-10.1 Hemoglobin A1c measurement - 01/08/20 16 :00 Blood hemoglobin A1C measurement (mass/volume) 6.2 % 4.0-5.6 MEAN BLOOD GLUCOSE 131 % <=126 Coronavirus SARS-CoV-2 SO 2018 - 0 08:20 Coronavirus Ab [Units/volume] in Serum Negative Negative Coronavirus SARS-CoV-2 SO 2018 0 08:05 Coronavirus Ab [Units/volume] in Serum Negative Negative Capillary blood glucose measurement by g lucometer (mass/volume) - 03/08/20 07:57 Capillary blood glucose measurement by glucometer (mas s/volume) 125 mg/dL 70-110 Encounters ACCT No. Visit Date/Time Discharge Status Pt. Type Provider Facility Loc./Unit Complaint [id number] 04/22/2017 15:49:00 04/22/2017 17:25: 00 DIS Outpatient Marc Vasquez [id number] 04/22/2017 16:28:40 Document Registration [id number] 09/16/2011 12:58:00 09/16/2011 23:59: 59 CLS Outpatient SIMON LOVE DDS [id number] 03/05/2020 05:32:00 10:20:00 DIS Outpatient AAKASH MONTIEL MD [facility] PREOP EGD [id number] 02/27/2020 10:19:00 23:59:59 CLS Outpatient JORGE QUIÑONES MD [facility] WOUNDCARE [id number] 02/20/2020 10:09:00 23:59:59 CLS Outpatient JORGE QUIÑONES MD [facility] WOUNDCARE [id number] 02/13/2020 10:13:00 23:59:59 CLS Outpatient JORGE QUIÑONES MD Via [facility] WOUNDCARE [id number] 02/09/2020 11:00:00 23:59:59 CLS Preadmit AAKASH MONTIEL MD Via [facility] ENDO DYSPHAGIA [id number] 02/06/2020 10:21:00 23:59:59 CLS Outpatient JORGE QUIÑONES MD Via [facility] WOUNDCARE [id number] 02/06/2020 05:54:00 12:10:00 DIS Outpatient AAKASH MONTIEL MD Via [facility] PREOP EGD [id number] 01/30/2020 09:33:00 23:59:59 CLS Outpatient JORGE QUIÑONES MD Via [facility] WOUNDCARE [id number] 01/24/2020 09:42:00 23:59:59 CLS Outpatient JORGE QUIÑONES MD Via [facility] WOUNDCARE [id number] 01/17/2020 10:29:00 23:59:59 CLS Outpatient JORGE QUIÑONES MD Via [facility] WOUNDCARE [id number] 01/10/2020 10:27:00 23:59:59 CLS Outpatient JORGE QUIÑONES MD Via [facility] WOUNDCARE [id number] 01/08/2020 15:48:00 23:59:59 CLS Outpatient JORGE QUIÑONES MD Via [facility] LAB TYPE 2 DIABETES [id number] 01/08/2020 14:26:00 23:59:59 CLS Outpatient JORGE QUIÑONES MD Via [facility] WOUNDCARE [id number] 01/01/2020 14:40:00 23:59:59 CLS Outpatient JORGE QUIÑONES MD Via [facility] WOUNDCARE [id number] 12/18/2019 14:35:00 23:59:59 CLS Outpatient JORGE QUIÑONES MD Via [facility] WOUNDCARE [id number] 12/04/2019 14:21:00 23:59:59 CLS Outpatient JORGE QUIÑONES MD Via [facility] WOUNDCARE [id number] 11/20/2019 14:19:00 23:59:59 CLS Outpatient JORGE QUIÑONES MD Via [facility] WOUNDCARE [id number] 11/13/2019 14:10:00 23:59:59 CLS Outpatient JORGE QUIÑONES MD Via [facility] WOUNDCARE [id number] 11/06/2019 12:45:00 23:59:59 CLS Outpatient JORGE QUIÑONES MD Via [facility] WOUNDCARE [id number] 10/10/2019 09:22:00 23:59:59 CLS Outpatient JOSI RAGSDALE MD Via [facility] WOUNDCARE [id number] 10/03/2019 09:45:00 23:59:59 CLS Outpatient JOSI RAGSDALE MD Via [facility] WOUNDCARE [id number] 09/26/2019 09:33:00 23:59:59 CLS Outpatient JOSI RAGSDALE MD Via [facility] WOUNDCARE [id number] 09/19/2019 09:33:00 23:59:59 CLS Outpatient JOSI RAGSDALE MD Via [facility] WOUNDCARE [id number] 09/14/2019 09:41:00 23:59:59 CLS Outpatient JOSI RAGSDALE MD Via [facility] WOUNDCARE [id number] 09/12/2019 10:48:00 23:59:59 CLS Outpatient JOSI RAGSDALE MD Via [facility] WOUNDCARE [id number] 09/07/2019 14:35:00 23:59:59 CLS Outpatient JOSI RAGSDALE MD Via [facility] LAB TYPE 2 DIABETES [id number] 09/07/2019 13:49:00 23:59:59 CLS Outpatient JOSI RAGSDALE MD Via [facility] WOUNDCARE [id number] 08/25/2019 09:47:00 23:59:59 CLS Outpatient JORGE QUIÑONES MD Via [facility] WOUNDCARE [id number] 08/16/2019 10:10:00 23:59:59 CLS Outpatient OJRGE QUIÑONES MD Via [facility] WOUNDCARE [id number] 2019 10:19:00 23:59:59 CLS Outpatient JORGE QUIÑONES MD Via [facility] WOUNDCARE [id number] 2019 10:02:00 23:59:59 CLS Outpatient JORGE QUIÑONES MD Via [facility] LAB MILD MALNUTRUTION [id number] 08/02/2019 09:36:00 23:59:59 CLS Outpatient JORGE QUIÑONES MD Via [facility] WOUNDCARE [id number] 07/26/2019 15:15:00 23:59:59 CLS Outpatient JORGE QUIÑONES MD Via [facility] WOUNDCARE [id number] 07/24/2019 14:17:00 23:59:59 CLS Outpatient JORGE QUIÑONES MD Via [facility] WOUNDCARE [id number] 07/19/2019 09:52:00 23:59:59 CLS Outpatient JORGE QUIÑONES MD [facility] [id number] 07/07/2019 09:24:00 23:59:59 CLS Outpatient JORGE QUIÑONES MD [facility] [id number] 06/28/2019 09:27:00 23:59:59 CLS Outpatient JORGE QUIÑONES MD Via [facility] WOUNDCARE [id number] 06/21/2019 09:49:00 23:59:59 CLS Outpatient JORGE QUIÑONES MD [facility] [id number] 06/18/2019 18:07:00 10:30:00 DIS Inpatient CELINA MARTINEZ, SHAVONNE Ribeiro Via [address] DYSPHORIA TO CANCER AND RX [id number] 06/14/2019 12:59:00 23:59:59 CLS Outpatient JORGE QUIÑONES MD Via [facility] WOUNDCARE [id number] 05/31/2019 14:01:00 23:59:59 CLS Outpatient JORGE QUIÑONES MD Via [facility] WOUNDCARE [id number] 05/23/2019 14:00:00 23:59:59 CLS Outpatient JORGE QUIÑONES MD Via [facility] WOUNDC[facility] [id number] 05/17/2019 14:23:00 23:59:59 CLS Outpatient JORGE QUIÑONES MD Via [facility] WOUNDCARE [id number] 05/03/2019 13:54:00 23:59:59 CLS Outpatient JORGE QUIÑONES MD Via [facility] WOUNDCARE [id number] 04/25/2019 15:17:00 23:59:59 CLS Outpatient JORGE QUIÑONES MD Via [facility] WOUNDCARE [id number] 04/19/2019 10:53:00 23:59:59 CLS Outpatient JORGE QUIÑONES MD Via [facility] DIABETES MELLITUS WITH FOOT ULCER [id number] 04/19/2019 09:51:00 23:59:59 CLS Outpatient JORGE QUIÑONES MD Via [facility] WOUNDCARE [id number] 04/19/2019 12:26:00 16:18:00 DIS Emergency MAN ESCAMILLA, CECILLE Kurtz Vi a [facility] ER PICC LINE SWELLING [id number] 04/12/2019 10:06:00 23:59:59 CLS Outpatient JORGE QUIÑONES MD Via [facility] WOUNDCARE [id number] 04/05/2019 10:13:00 23:59:59 CLS Outpatient JORGE QUIÑONES MD Via [facility] WOUNDCARE [id number] 03/31/2019 08:16:00 23:59:59 CLS Outpatient JORGE QUIÑONES MD Via [facility] WOUNDC[facility] [id number] 02/06/2019 11:39:00 23:59:59 CLS Outpatient JORGE QUIÑONES MD Via [facility] WOUNDCARE [id number] 01/30/2019 09:04:00 23:59:59 CLS Outpatient JORGE QUIÑONES MD Via [facility] WOUNDCARE [id number] 01/16/2019 11:26:00 23:59:59 CLS Outpatient JORGE QUIÑONES MD Via [facility] WOUNDCARE [id number] 01/09/2019 09:37:00 23:59:59 CLS Outpatient JORGE QUIÑONES MD Via [facility] WOUNDCARE [id number] 11/22/2018 12:37:00 23:59:59 CLS Outpatient JORGE QUIÑONES MD Via [facility] WOUNDCARE [id number] 11/15/2018 13:01:00 23:59:59 CLS Outpatient JORGE QUIÑONES MD [facility] [id number] 11/09/2018 08:32:00 23:59:59 CLS Outpatient JORGE QUIÑONES MD [facility] [id number] 10/26/2018 12:08:00 23:59:59 CLS Outpatient JORGE QUIÑONES MD Via [facility] WOUNDCARE [id number] 10/19/2018 12:22:00 23:59:59 CLS Outpatient JORGE QUIÑONES MD Via [facility] WOUNDCARE [id number] 10/12/2018 12:26:00 23:59:59 CLS Outpatient JORGE QUIÑONES MD [facility] [id number] 10/05/2018 12:24:00 23:59:59 CLS Outpatient JORGE QUIÑONES MD Via [facility] WOUNDCARE [id number] 09/28/2018 12:25:00 23:59:59 CLS Outpatient JORGE QUIÑONES MD Via [facility] WOUNDCARE [id number] 09/21/2018 12:23:00 23:59:59 CLS Outpatient JORGE QUIÑONES MD Via [facility] WOUNDCARE [id number] 09/14/2018 12:33:00 23:59:59 CLS Outpatient JORGE QUIÑONES MD Via [facility] WOUNDCARE [id number] 09/12/2018 10:39:00 23:59:59 CLS Outpatient JORGE QUIÑONES MD Via [facility] WOUNDCARE [id number] 09/08/2018 12:18:00 23:59:59 CLS Outpatient JORGE QUIÑONES MD Via [facility] LAB E11.621,E11.42 [id number] 09/07/2018 12:07:00 23:59:59 CLS Outpatient JORGE QUIÑONES MD Via [facility] WOUNDCARE [id number] 2018 07:38:00 23:59:59 CLS Outpatient MARIE LUNA DO Via [facility] RAD LYMPHEDEMA [id number] 06/10/2018 08:28:00 018 09:52:00 DIS Outpatient KIAN LA MD Via [facility] LEFT CATARACT [id number] 06/08/2018 06:39:00 018 13:37:00 DIS Outpatient KIAN LA MD Via [facility] PREOP CATARACT LEFT [id number] 05/25/2018 06:32:00 018 08:10:00 DIS Outpatient KIAN LA MD Via [facility] CATARACT RIGHT EYE [id number] 05/24/2018 05:48:00 018 13:32:00 DIS Outpatient KIAN LA MD Via [facility] PREOP CATARACT RIGHT EYE [id number] 02/14/2018 14:12:00 018 23:59:59 CLS Outpatient ZOIE SWIFT MD Via [facility] RAD CERVICAL SPINE STENOSIS [id number] 02/02/2018 10:09:00 018 23:59:59 CLS Outpatient ZOIE SWIFT MD Via [facility] RAD ATAXIA [id number] 02/02/2018 10:08:00 018 23:59:59 CLS Outpatient MARIE LUNA DO Via [facility] RAD TREMOR [id number] 12/11/2017 10:40:00 018 23:59:59 CLS Outpatient MARIE LUNA DO Via [facility] RAD TRAUMA [id number] 07/14/2017 11:35:00 017 12:23:00 DIS Inpatient LAURA TELLEZ DO, V ia [facility] 4TH RT GROIN/LEG HEMATOMA [id number] 07/12/2017 12:21:00 017 16:13:00 DIS Emergency KAROL MCCOY MD Via [facility] ER POST OP RT LEG PAIN, GR OIN PAIN [id number] 07/08/2017 06:51:00 13:40:00 DIS Outpatient ERIC MARTINEZ, Gema AVILES Via [facility] CATH L TATE, CRITICAL LIMB ISC HEMIA [id number] 06/23/2017 15:48:00 23:59:59 CLS Outpatient MARIE LUNA DO Via [facility] RAD J18.9 K09.02 [id number] 06/08/2017 11:11:00 11:40:00 DIS Inpatient MICHELINE BRISCOE MD Via [facility] 4TH R PNEUMONIA,SEVERE SEPS IS [id number] 06/09/2017 07:15:00 017 23:59:59 CLS Preadmit ALEXANDRIA DURÁN MD Via [facility] RAD UPPER ABD PAIN [id number] 06/03/2017 11:12:00 017 23:59:59 CLS Preadmit MARIE LUNA DO Via [facility] RAD M54.5 [id number] 12/22/2016 09:37:00 23:59:59 CLS Outpatient MARIE LUNA DO Via [facility] RAD SCREENING [id number] 12/31/2015 09:35:00 016 23:59:59 CLS Outpatient HARRISON BOYKIN MD Via [facility] RAD STONE [id number] 11/01/2015 13:40:00 016 23:59:59 CLS Outpatient MARIE LUNA DO Via [facility] RAD RIGHT FLANK KENNY N [id number] 10/02/2015 12:56:00 016 23:59:59 CLS Outpatient JORGE QUIÑONES MD Via [facility] WOUNDCARE [id number] 02/22/2015 09:41:00 015 12:00:00 DIS Outpatient JORGE QUIÑONES MD Via [facility] WOUNDCARE ABDOMINAL WOUND [id number] 02/15/2015 09:30:00 015 00:01:00 DIS Outpatient JORGE QUIÑONES MD Via [facility] WOUNDCARE ABDOMINAL WOUND [id number] 01/11/2015 09:37:00 23:59:59 CLS Outpatient JORGE QUIÑONES MD Via [facility] LAB DIABETIC FOOT ULCER, [id number] 11/23/2014 12:11:00 015 23:59:59 CLS Outpatient JORGE QUIÑONES MD Via [facility] LAB ABD WOUND [id number] 11/11/2014 08:58:00 015 15:30:00 DIS Inpatient MARIE LUNA DO Via [facility] 4TH ABSCESS ABD WAL L [id number] 10/11/2014 11:42:00 015 23:59:59 CLS Outpatient MARIE LUNA DO Via [facility] RAD PRE OP [id number] 03/09/2014 11:38:00 014 23:59:59 CLS Outpatient MARIE LUNA DO Via [facility] RT DYSPNEA [id number] 03/09/2014 06:34:00 014 23:59:59 CLS Outpatient MARIE LUNA DO Via [facility] CARD HTN,PREOP [id number] 05/18/2013 09:08:00 013 23:59:59 CLS Outpatient MARIE LUNA DO Via [facility] RAD LOWER EXT ARTER IAL OBSTRUCTION [id number] 01/17/2013 14:08:00 013 23:59:59 [facility] [id number] 03/04/2020 10:07:00 Document Registration [id number] 10/11/2014 11:43:00 Document Registration [id number] 09/02/2012 08:05:00 Document Registration [id number] 08/12/2012 10:14:00 Document Registration [id number] 10/29/2011 11:07:00 Document Registration [id number] 10/03/2011 10:50:00 Document Registration [id number] 05/25/2011 10:17:00 Document Registration [id number] 05/07/2011 14:33:00 Document Registration [id number] 10/07/2010 10:43:00 Document Registration [id number] 10/05/2010 11:48:00 Document Registration [id number] 01/30/2010 13:07:00 Document Registration
--- NOTE | 2020-03-08 21:15 | OPERATIVE REPORT ---
DATE OF SERVICE: EGD SUMMARY INDICATION FOR THE PROCEDURE: 1. Dysphagia. 2. History of squamous cell carcinoma of the head and neck. DESCRIPTION OF PROCEDURE: The patient was placed in the left lateral decubitus position. The endoscope was inserted into the oral cavity and under direct visualization, esophagus was intubated. The endoscope was passed down the esophagus through the stomach and second portion of the duodenum. Careful inspection was made as the endoscope was withdrawn. The patient tolerated the procedure well. FINDINGS: Posterior pharynx, arytenoid aperture, true and false vocal folds were unremarkable, but difficult to evaluate due to Mallampati 4 oropharyngeal configuration even with the scope. There was no evidence for obstruction. The proximal and mid esophagus were unremarkable. There is evidence for small hiatal hernia and gastric findings are compatible with gastric sleeve resection intact. Several small linear areas of shallow ulceration were noted extending proximally from the Z line compatible with LA grade B erosive esophagitis. No evidence for stricture formation was noted. No evidence for extrinsic compression was noted. No evidence to suggest Huff's change was noted. The gastric pouch is intact. No evidence for gastric ulceration was noted. The duodenal bulb and second portion of the duodenum were unremarkable with no evidence for duodenitis, ulceration or other abnormality. ASSESSMENT: No evidence for mechanical obstruction was present today. The patient did have LA grade B erosive esophagitis without evidence for stricturing or narrowing and no evidence to suggest Huff's change. Biopsies were obtained and submitted for histopathology. An intact gastric type sleeve resection surgery noted without evidence for peptic ulcer disease. The patient was reassured by today's findings discussed the importance of careful attention to mastication. I advised she avoid antihistamines as the mucous membranes are already dry from previous radiation therapy which may be contributing to her intermittent dysphagia. In regards to esophagitis, I took the liberty of initiating pantoprazole, which may help some of her symptomatology as well and she was advised to follow up with Dr. Ayoub within the month. Refills were not given for the medication, but I would advise chronic PPI therapy at this time. She did have obstructive breathing on her back under the influence of Diprivan. I did discussed especially considering oropharyngeal anatomy, the high likelihood of obstructive sleep apnea, which I believe had been discussed with her in the past. She refuses to consider wearing any type of CPAP device and for this reason, I would not advocate a workup for sleep apnea. I thank you for the referral of this pleasant lady, reassured by today's findings. Job ID: [id number] DocumentID: [id number] Dictated Date: 03/08/2020 11:36:10 Head School Custodian Date: 03/08/2020 21:14:49 Dictated By: AAKASH MONTIEL MD MTDD
--- NOTE | 2020-03-26 23:30 | OPERATIVE REPORT ---
DATE OF SERVICE: ADDENDUM PANENDOSCOPY SUMMARY GE junction biopsies done on 03/08/2020 on the patient for dysphagia did reveal evidence for Huff's esophagus without dysplasia. This would be compatible with short segment Huff's and low risk for future adenocarcinoma of the esophagus. I gave her a prescription for pantoprazole 40 mg at the time of the procedure and she has been advised to continue this. I would also advise repeat surveillance EGD evaluation in 1 year provided the patient has no evidence for recurrence of squamous cell carcinoma of the head and neck. I thank you for the referral of this pleasant lady. Job ID: [id number] DocumentID: [id number] Dictated Date: 03/26/2020 15:30:09 Grain Farmworker Date: 03/26/2020 15:52:12 Dictated By: AAKASH MONTIEL MD [facility]
[2020-05-21] MEDS ORDERED: CYCL10TA9 PO ×2 (11:31)
[2020-05-21] MEDS ORDERED: LINA72CA PO ×2 (11:31)
== END 2020-03-08 09:45 | disposition home or self-care (01) ==
LOC: ENDO 07:33
PROVIDERS: ATTEND Internal Medicine
DX: R13.10 Dysphagia, unspecified (principal); K22.10 Ulcer of esophagus without bleeding; K44.9 Diaphragmatic hernia without obstruction or gangrene; C01 Malignant neoplasm of base of tongue; C79.89 Secondary malignant neoplasm of other specified sites; F41.9 Anxiety disorder, unspecified; F32.9 Major depressive disorder, single episode, unspecified; E03.9 Hypothyroidism, unspecified; I10 Essential (primary) hypertension; Z98.84 Bariatric surgery status; Z87.891 Personal history of nicotine dependence
CPT/HCPCS: 82962; 88305

== ENCOUNTER → 2020-03-12 | Outpatient (CLI) | payer MEDICARE, MEDICAID ==
[~2020-03-12] MED LIST changes: -ASPI-1238 PO; +ASPI-983 PO; +PANT40TA3 PO
== END ==
LOC: WOUNDCARE 09:27
PROVIDERS: ATTEND Surgery
DX: E11.621 Type 2 diabetes mellitus with foot ulcer (principal); E11.42 Type 2 diabetes mellitus with diabetic polyneuropathy; E11.610 Type 2 diabetes mellitus with diabetic neuropathic arthropathy; L97.422 Non-pressure chronic ulcer of left heel and midfoot with fat layer exposed; E66.01 Morbid (severe) obesity due to excess calories; Z68.33 Body mass index [BMI] 33.0-33.9, adult
CPT/HCPCS: 99212

== ENCOUNTER 2020-05-21 11:15 | Outpatient (CLI) | payer MEDICARE, MEDICAID ==
[~2020-05-21] VITALS: Ht 167 cm; Wt 95.4 kg
[~2020-05-21 11:15] MED LIST changes: +ASPI-1238 PO; -ASPI-983 PO; -PANT40TA3 PO; +PANT40TA52 PO
[2020-05-21] MEDS ORDERED: LINA72CA PO (11:31)
[2020-05-21] MEDS ORDERED: CYCL10TA9 PO (11:31)
== END 2020-05-21 11:43 | disposition home or self-care (01) ==
LOC: PREOP 11:15
PROVIDERS: ATTEND Orthopaedic Surgery
DX: Z01.818 Encounter for other preprocedural examination (principal)

== ENCOUNTER 2020-05-22 09:52 | Day surgery (SDC) | payer MEDICARE, MEDICAID ==
[~2020-05-22] VITALS: Ht 167 cm; Wt 95.4 kg
[2020-05-22] VITALS (11 sets, daily range): BP systolic 109–165; BP diastolic 66–93
--- NOTE | 2020-05-22 07:43 | HISTORY AND PHYSICAL ---
DATE OF SERVICE: ADMISSION HISTORY AND PHYSICAL This will be for an outpatient surgery, date of service, date of surgery, date of treatment will be 05/22/2020 for open reduction and internal fixation of right distal radius. HISTORY OF PRESENT ILLNESS: The patient is a 64-year-old right hand dominant, female who fell on Wednesday and presented to an outside facility. She was found to have a displaced distal radius fracture, was placed in a splint and referred for treatment. She reports no prior history of wrist problems. She denies paresthesias. REVIEW OF SYSTEMS: No chest pain, no shortness of breath, no dysuria. PAST MEDICAL HISTORY: Throat cancer with metastatic disease, diabetes mellitus, hypertension, hypothyroidism, peripheral vascular disease, venous stasis, left leg pain, left hip pain, obesity, diabetic ulcers, depression, glaucoma, shingles, Charcot foot, anxiety. PAST SURGICAL HISTORY: Appendectomy, L1 kyphoplasty, abdominal hysterectomy, right cataract and throat cancer surgery, unspecified. FAMILY HISTORY: Noncontributory. PRIMARY CARE PROVIDER: Dr. Ayoub. MEDICATIONS: Amlodipine, lisinopril, temazepam, oxycodone, diphenhydramine, alprazolam, gabapentin, levothyroxine, atorvastatin, latanoprost, insulin, bupropion, Linzess, and Protonix. ALLERGIES: ADHESIVE TAPE. SOCIAL HISTORY: The patient is a former smoker. Denies alcohol use. RADIOGRAPHS: Reveal severely comminuted displaced intra-articular right distal radius fracture. PHYSICAL EXAMINATION: GENERAL: The patient is well developed, well nourished, in no acute distress. HEENT: Normocephalic, atraumatic. Pupils are equal, round, reactive to light. Oropharynx is clear. NECK: Supple, no lymphadenopathy. LUNGS: Clear to auscultation bilaterally. HEART: Regular rate and rhythm. ABDOMEN: Soft, nontender, nondistended. EXTREMITIES: The right upper extremity demonstrates intact IP flexion and extension of the thumb. She has intact sensation to light touch in radial, ulnar and median distribution. There is an abrasion on her thenar eminence. No other skin lesions are noted. IMPRESSION: Displaced right intraarticular distal radius fracture. PLAN: Open reduction and internal fixation of right distal radius. We discussed risks, benefits, options, ramifications and recovery. She understands and wishes to proceed. Job ID: [id number] DocumentID: [id number] Dictated Date: 05/20/2020 15:17:34 [employer] Date: 05/20/2020 16:26:07 Dictated By: JORGE KAUFFMAN MD
[~2020-05-22 09:52] MED LIST changes: +AMLO-250 PO; -AMLO5TAB9 PO; +CYCL10TA9 PO; +HYDROmorphone (DILAUDID) 4 MG TAB PO PRN; +LINA72CA PO
[2020-05-22] MEDS ORDERED: LACTATED RINGERS 1,000 ML IV PRN (10:01)
--- NOTE | 2020-05-22 10:01 | Progress Note-Pre Operative ---
Pre-Operative Progress Note H&P Reviewed The H&P was reviewed, patient examined and no changes noted. Date Seen by Provider: May 22, 2020 Time Seen by Provider: 09:59 Date H&P Reviewed: May 22, 2020 Time H&P Reviewed: 10:00 Pre-Operative Diagnosis: right displaced distal radius fracture JORGE KAUFFMAN MD May 22, 2020 10:01
--- NOTE | 2020-05-22 10:02 | Progress Note-Post Operative ---
Post-Operative Progess Note Surgeon (s)/Hotel Valet Attendant (s) Surgeon JORGE KAUFFMAN MD Hotel Valet Attendant: Chepe Carrasco Pre-Operative Diagnosis right displaced distal radius fracture Post-Operative Diagnosis right displaced distal radius fracture Procedure & Operative Findings Date of Procedure 05/22/20 Procedure Performed/Findings ORIF right distal radius Anesthesia Type GETA Estimated Blood Loss Estimated blood loss (mL): minimal Specimens/Packing Specimens Removed none Packing: none JORGE KAUFFMAN MD May 22, 2020 10:02
[2020-05-22] MEDS ORDERED: ceFAZolin INJECTION 1,000 MG in WATER (STERILE) FOR INJECTION 10 ML IV ONE (10:15)
[2020-05-22] MEDS ORDERED: NS IV 500 ML 500 ML IV PRN ×2 (11:02)
[2020-05-22] MEDS ORDERED: LIDOCAINE PF 2% 5 ML (XYLOCAINE) VIAL ONE (11:08)
[2020-05-22] MEDS ORDERED: ONDANSETRON 4 MG/2 ML (SDV) Z0FRAN ONE (11:08)
[2020-05-22] MEDS ORDERED: proPOfol 200 MG/20 ML (DIPRIVAN) VIAL IV ONE (11:08)
[2020-05-22] MEDS ORDERED: MIDAZOLAM 2 MG/2 ML (VERSED) VIAL ONE (11:09)
[2020-05-22] MEDS ORDERED: fentaNYL INJECTION 100 MCG/2 ML AMP ONE ×2 (11:09→13:39)
[2020-05-22] MEDS ORDERED: SEVOFLURANE (ULTANE) 15 ML INHAL SOLN ONE ×3 (12:24→12:29)
[2020-05-22] MEDS ORDERED: HYDROmorphone 2 MG/ML VIAL (DILAUDID) ONE (13:07)
[2020-05-22] MEDS ORDERED: morphine INJ 10 MG/ML 1ML (SYR OR VIAL) IVP ONE (13:15)
[2020-05-22] MEDS ORDERED: HYDROmorphone 2 MG/ML VIAL (DILAUDID) IV ONE (13:15)
[2020-05-22] MEDS ORDERED: MEPERIDINE (DEMEROL) INJ 50 MG/ML IVP ONE (13:15)
[2020-05-22] MEDS ORDERED: ONDANSETRON 4 MG/2 ML (SDV) Z0FRAN IVP PRN (13:15)
[2020-05-22] MEDS ORDERED: morphine INJ 10 MG/ML 1ML (SYR OR VIAL) ONE (13:17)
--- NOTE | 2020-05-22 13:46 | Anesthesia-General Post-Op ---
General Patient Condition Mental Status/LOC: Same as Preop Cardiovascular: Satisfactory Nausea/Vomiting: Absent Respiratory: Satisfactory Pain: Controlled (BEING TREATED) Complications: Absent Post Op Complications Complications None Follow Up Care/Instructions Patient Instructions None needed. Anesthesia/Patient Condition Patient Condition Patient is doing well, no complaints, stable vital signs, no apparent adverse anesthesia problems. No complications reported per nursing. ROBERT BROWN CRNA May 22, 2020 13:46
--- NOTE | 2020-05-22 14:06 | Diagnostic Imaging Report ---
INDICATION: Fluoroscopy for right wrist ORIF. FINDINGS: Fluoroscopy was provided in the OR during right wrist ORIF. 28 seconds of fluoroscopic time was utilized. Three images were obtained demonstrating a volar plate and numerous screws transfixing the distal radius fracture. The alignment is anatomic. IMPRESSION: Fluoroscopy for right wrist ORIF. Dictated by: Dictated on workstation # [id number]
[2020-05-22] MEDS ORDERED: fentaNYL INJECTION 100 MCG/2 ML AMP IVP ONE (14:15)
--- NOTE | 2020-05-22 17:44 | OPERATIVE REPORT ---
DATE OF SERVICE: 05/22/2020 PREOPERATIVE DIAGNOSIS: Closed displaced right distal radius fracture (Colles type). POSTOPERATIVE DIAGNOSIS: Closed displaced right distal radius fracture (Colles type). PROCEDURE PERFORMED: Open reduction and internal fixation of right distal radius. SURGEON: Pradeep Whitehead MD. JOURNEYMAN PRESSMAN: Chepe Carrasco, who assisted throughout the procedure and closed the incision. ANESTHESIA: General endotracheal by Ritchie Borjas CRNA. TOURNIQUET TIME: 38 minutes at 250 mmHg. ESTIMATED BLOOD LOSS: Minimal. DRAINS: None. COMPLICATIONS: None. POSTOPERATIVE PLAN: ____ activities for four to six weeks. DISPOSITION: The patient was transferred to the recovery room awake and in stable condition. MATERIALS: Synthes distal radius plate. STATEMENT OF MEDICAL NECESSITY: The patient is a 64-year-old right hand dominant female, who fell over the weekend and presented to an outside facility, where she was found to have a displaced right distal radius fracture. She was placed in a splint and ultimately referred for definitive treatment. The patient was counseled regarding treatment options. The fracture was closed intra-articular, but displaced. The patient elected to proceed with the operative intervention. DESCRIPTION OF PROCEDURE: After the risks and benefits of the procedure were discussed and questions were answered, informed consent was signed and placed on chart. The operative site was confirmed in the preoperative holding area initialed by the surgeon. The patient was transferred to the operating room and after adequate levels of general endotracheal anesthetic were obtained, a timeout was called, confirming the operative site. The right upper extremity was prepped and draped in the usual sterile fashion. With arm elevated and tourniquet inflated to 250 mmHg, a longitudinal incision was made over the flexor carpi radialis. This was retracted ulnarly. The flexor pollicis longus was retracted radially with the neurovascular bundle. The pronator quadratus was elevated off the fracture site. The fracture was anatomically reduced and a Synthes distal radius plate was placed with three cortical screws in the proximal fragment and four locking screws placed distally. On fluoroscopy, the AP, lateral and oblique planes revealed anatomic reduction with a well-placed hardware. Under live time fluoroscopy, the wrist was taken through range of motion. The fracture site was found to be stable. The wound was copiously irrigated and tourniquet was deflated. Pressure was used for hemostasis. A 3-0 Vicryl was used to reapproximate the subcutaneous tissue. Skin was closed with 4-0 nylon vertical mattress suture in interrupted fashion. Incision was infiltrated with plain Marcaine. A soft dressing and splint were applied. The patient was transferred to the recovery room awake and in stable condition. Job ID: [id number] DocumentID: [id number] Dictated Date: 05/22/2020 12:51:50 Track Walker Date: 05/22/2020 17:44:19 Dictated By: PRADEEP WHITEHEAD MD
== END 2020-05-22 15:50 | disposition home or self-care (01) ==
LOC: SDC 09:52
PROVIDERS: ATTEND Orthopaedic Surgery
DX: S52.531A Colles' fracture of right radius, initial encounter for closed fracture (principal); E11.51 Type 2 diabetes mellitus with diabetic peripheral angiopathy without gangrene; I10 Essential (primary) hypertension; I25.10 Atherosclerotic heart disease of native coronary artery without angina pectoris; K21.9 Gastro-esophageal reflux disease without esophagitis; F41.9 Anxiety disorder, unspecified; M19.90 Unspecified osteoarthritis, unspecified site; E03.9 Hypothyroidism, unspecified; F32.9 Major depressive disorder, single episode, unspecified; E11.610 Type 2 diabetes mellitus with diabetic neuropathic arthropathy; E66.9 Obesity, unspecified; Z68.34 Body mass index [BMI] 34.0-34.9, adult; Z79.899 Other long term (current) drug therapy; Z91.048 Other nonmedicinal substance allergy status; Z86.73 Personal history of transient ischemic attack (TIA), and cerebral infarction without residual deficits; Z85.818 Personal history of malignant neoplasm of other sites of lip, oral cavity, and pharynx; Z90.710 Acquired absence of both cervix and uterus; W19.XXXA Unspecified fall, initial encounter
CPT/HCPCS: 25608; 76000; 82962; 87081; C1713 ×4

== ENCOUNTER 2021-01-02 14:55 | Emergency (ER) | payer MEDICARE, MEDICAID ==
[~2021-01-02] VITALS: Ht 167 cm; Wt 113.3 kg
[~2021-01-02 14:55] MED LIST changes: -HYDROmorphone (DILAUDID) 4 MG TAB PO PRN; +LISI40TA9 PO; +SERT-412 PO; +SERT-413 PO; -SERT25TA5 PO; -SERT50TA9 PO
[2021-01-02] MEDS ORDERED: DEXTROSE 50% 50 ML (IMS) SYR ONE ×2 (15:07→16:31)
--- NOTE | 2021-01-02 15:31 | ED General ---
General Chief Complaint: Altered Mental Status Stated Complaint: AMS Source of Information: Patient Exam Limitations: No Limitations History of Present Illness Date Seen by Provider: January 02, 2021 Time Seen by Provider: 15:10 Initial Comments Patient is a 65-year-old who presents to the emergency room by ambulance today with a chief complaint of altered mental status. Patient on my evaluation is awake alert and oriented. She does seem a little bit confused as to how she arrived in the emergency department. Patient is easily orientated. She reportedly had blood sugars too low to read on scene. The last thing she remembers is asking her caregiver to make her a cup of coffee. Patient states that she has a history of diabetes and has been off of her insulin recently because her sugars have been "really good". She is approximately a week and 1/2 to 2 weeks postop a hernia repair and gallbladder surgery per Dr. Senior. She states she has had slightly decreased appetite and has not been eating as much as usual because she has to cook for herself and finds it a little bit difficult to get around as she is recovering from surgery. She states that she has had some foul-smelling urine for about a month now and does not recall whether or not she has been on antibiotics and thinks she might have been when she was discharged from [facility]. She states her urine continues to smell foul. She denies chest pain, shortness of breath, cough. No abdominal pain. But she does have abdominal discomfort at the area of her surgical incisions. She states that she had a hernia repair but still notes that she has a bulge to the left of her umbilicus that is tender to palpation. All other review of systems reviewed and negative except as stated above. Timing/Duration: 1-3 Hours Severity: Severe Associated Systoms: Denies Symptoms Allergies and Home Medications Allergies Uncoded Allergies: TAPE (Allergy, Intermediate, 11/11/14) Home Medications Alprazolam 1 Mg Tablet, 1 MG PO QID PRN for ANXIETY, (Reported) Amlodipine Besylate 5 Mg Tablet, 5 MG PO DAILY, (Reported) Atorvastatin Calcium 10 Mg Tablet, 10 MG PO DAILY, (Reported) Brimonidine Tartrate 5 Ml Drops, 1 DROP OU TID, (Reported) Bupropion HCl 150 Mg Tablet.er, 150 MG PO BID, (Reported) Cyclobenzaprine HCl 10 Mg Tablet, 10 MG PO TID, (Reported) Gabapentin 600 Mg Tablet, 600 MG PO BID, (Reported) Insulin Glargine,Hum.rec.anlog 100 Unit/1 Ml Insuln.pen, 20-80 UNITS SC HS PRN for DEPENDS ON BS, (Reported) Latanoprost 2.5 Ml Drops, 1 DROP OU HS, (Reported) Levofloxacin 250 Mg Tablet, 250 MG PO DAILY Prescribed by: NORBERTO DELUCA on 01/02/21 1640 Levothyroxine Sodium 25 Mcg Tablet, 25 MCG PO DAILY, (Reported) Linaclotide 72 Mcg Capsule, 72 MCG PO DAILY, (Reported) Lisinopril 40 Mg Tablet, 40 MG PO DAILY, (Reported) Ondansetron 8 Mg Tab.rapdis, 8 MG PO Q8H PRN for NAUSEA/VOMITING-1ST LINE, (Reported) Pantoprazole Sodium 40 Mg Tablet.dr, 40 MG PO DAILY Prescribed by: AAKASH MONTIEL on 03/08/20 0947 Sertraline HCl 50 Mg Tablet, 50 MG PO DAILY, (Reported) Temazepam 15 Mg Capsule, 15 MG PO HS, (Reported) Patient Home Medication List Home Medication List Reviewed: Yes Review of Systems Review of Systems Constitutional: see HPI EENTM: no symptoms reported Respiratory: no symptoms reported Cardiovascular: no symptoms reported Gastrointestinal: abdominal pain, other (hernia ) Genitourinary: other (foul urine smell) Musculoskeletal: no symptoms reported Skin: no symptoms reported All Other Systems Reviewed Negative Unless Noted: Yes Past [place]-Txvuvj-Ttydxg Hx Patient Social History Type Used: Cigarettes Former Smoker, Quit: Jul 14, 2011 2nd Hand Smoke Exposure: No Recent Hopitalizations: No Immunizations Up To Date Tetanus Booster (TDap): Unknown Date of Pneumonia Vaccine: Jul 14, 2012 Date of Influenza Vaccine: May 12, 2019 Seasonal Allergies Seasonal Allergies: Yes Past Medical History Surgeries: Yes (GASTRIC BYPASS (HAD 2 MORE SURGERIES FOR INFECTION), BACK, ) Appendectomy, Eye Surgery, Hysterectomy, Vascular Surgery Respiratory: Yes (PENUMONIA WITH SEPTIC SHOCK 05/2017) Pneumonia Currently Using CPAP: No Currently Using BIPAP: No Cardiac: Yes Coronary Artery Disease, Hypertension, Peripheral Vascular Neurological: Yes Stroke Reproductive Disorders: No 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 Disorders: Denies 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 Sexually Transmitted Disease: No HIV/AIDS: No Genitourinary: Yes Renal Failure, UTI-Chronic Gastrointestinal: Yes (dysphagia) Gastroesophageal Reflux, Chronic Constipation Musculoskeletal: Yes (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, 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 IN SOFT TISSUE, L1-2 FX,) Back Injury, Chronic Back Pain, Fractures Endocrine: Yes (OBESITY) Diabetes, Insulin dep HEENT: Yes ( GLASSES, DENTURES) Glaucoma Hearing Impairment: Hard of Hearing Cancer: Yes (NECK/TONSILLAR CANCER) Did You Recieve Any Treatments: Yes What Type of Treatment Did You: Chemotherapy, Radiation Psychosocial: Yes Anxiety Integumentary: Yes (CHRONIC LEFT LEG AND FOOT ULCERS ) Blood Disorders: No Adverse Reaction/Blood Tranf: No (HAS HAD BLOOD WITH REACTION) Family Medical History Diabetes mellitus G8 BROTHER FH: skin cancer 19 FATHER Hypertension Physical Exam Vital Signs Vital Signs - First Documented 01/02/21 14:55 Temp 33.9 Pulse 67 Resp 20 B/P (MAP) 122/89 (100) Pulse Ox 97 O2 Delivery Room Air Capillary Refill : Height, Weight, BMI Height: 5'5.00" Weight: 280lbs. 0.0oz. 127.077396oh; 34.20 BMI Method:Stated General Appearance: No Apparent Distress, WD/WN, Anxious Eyes: Bilateral Eye Normal Inspection, Bilateral Eye PERRL, Bilateral Eye EOMI HEENT: PERRL/EOMI Neck: Normal Inspection Respiratory: Lungs Clear, Normal Breath Sounds, No Accessory Muscle Use, No Respiratory Distress Cardiovascular: Regular Rate, Rhythm Gastrointestinal: Normal Bowel Sounds, Soft, Tenderness (Mild tenderness to palpation over a ventral hernia just to the left of her umbilicus. Surgical incision sites look clean dry and minimally erythematous no drainage) Extremity: Normal Capillary Refill, Normal Inspection, Normal Range of Motion, Non Tender, No Pedal Edema Neurologic/Psychiatric: Alert, Oriented x3, No Motor/Sensory Deficits, Normal Mood/Affect, family practice physician II-XII Norm as Tested Skin: Normal Color, Warm/Dry Progress/Results/Core Measures Suspected Sepsis SIRS Temperature: Pulse: Respiratory Rate: Laboratory Tests 01/02/21 15:17: White Blood Count 8.3 Blood Pressure / Mean: Laboratory Tests 01/02/21 15:17: Creatinine 0.76, Platelet Count 361 Results/Orders Lab Results Laboratory Tests Test 01/02/21 15:10 01/02/21 15:16 01/02/21 15:17 01/02/21 15:39 Range/Units Glucometer 53 *L 66 L 70-110 MG/DL Urine Color YELLOW Urine Clarity SL CLOUDY Urine pH 6.5 5-9 Urine Specific [place] 1.020 1.016-1.022 Urine Protein NEGATIVE NEGATIVE Urine Glucose (UA) NEGATIVE NEGATIVE Urine Ketones NEGATIVE NEGATIVE Urine Nitrite NEGATIVE NEGATIVE Urine Bilirubin NEGATIVE NEGATIVE Urine Urobilinogen 0.2 < = 1.0 MG/DL Urine Leukocyte Esterase 1+ H NEGATIVE Urine RBC (Auto) NEGATIVE NEGATIVE Urine RBC NONE /HPF Urine WBC 25-50 H /HPF Urine Squamous Epithelial Cells 5-10 /HPF Urine Crystals NONE /LPF Urine Bacteria LARGE H /HPF Urine Casts NONE /LPF Urine Mucus NEGATIVE /LPF Urine Culture Indicated YES White Blood Count 8.3 4.3-11.0 10^3/uL Red Blood Count 3.38 L 3.80-5.11 10^6/uL Hemoglobin 10.3 L 11.5-16.0 g/dL Hematocrit 32 L 35-52 % Mean Corpuscular Volume 94 80-99 fL Mean Corpuscular Hemoglobin 31 25-34 pg Mean Corpuscular Hemoglobin Concent 32 32-36 g/dL Red Cell Distribution Width 12.6 10.0-14.5 % Platelet Count 361 130-400 10^3/uL Mean Platelet Volume 10.7 9.0-12.2 fL Immature Granulocyte % (Auto) 1 % Neutrophils (%) (Auto) 90 H 42-75 % Lymphocytes (%) (Auto) 4 L 12-44 % Monocytes (%) (Auto) 4 0-12 % Eosinophils (%) (Auto) 1 0-10 % Basophils (%) (Auto) 0 0-10 % Neutrophils # (Auto) 7.5 1.8-7.8 10^3/uL Lymphocytes # (Auto) 0.3 L 1.0-4.0 10^3/uL Monocytes # (Auto) 0.3 0.0-1.0 10^3/uL Eosinophils # (Auto) 0.1 0.0-0.3 10^3/uL Basophils # (Auto) 0.0 0.0-0.1 10^3/uL Immature Granulocyte # (Auto) 0.1 0.0-0.1 10^3/uL Neutrophils % (Manual) 96 % Lymphocytes % (Manual) 3 % Monocytes % (Manual) 0 % Eosinophils % (Manual) 0 % Band Neutrophils 0 % Reactive Lymphocytes 1 % Toxic Granulation 1+ Sodium Level 137 135-145 MMOL/L Potassium Level 4.3 3.6-5.0 MMOL/L Chloride Level 101 98-107 MMOL/L Carbon Dioxide Level 30 21-32 MMOL/L Anion Gap 6 5-14 MMOL/L Blood Urea Nitrogen 13 7-18 MG/DL Creatinine 0.76 0.60-1.30 MG/DL Estimat Glomerular Filtration Rate > 60 BUN/Creatinine Ratio 17 Glucose Level 72 70-105 MG/DL Calcium Level 8.1 L 8.5-10.1 MG/DL Test 01/02/21 16:37 01/02/21 17:38 Range/Units Glucometer 40 *L 102 70-110 MG/DL My Orders Orders - NORBERTO DELUCA MD D50w (Emergency) Syringe (Dextrose 50% 5 (01/02/21 15:07) Cbc With Automated Diff (01/02/21 15:26) Basic Metabolic Panel (01/02/21 15:26) Ua Culture If Indicated (01/02/21 15:26) Ed Iv/Invasive Line Start (01/02/21 15:26) Manual Differential (01/02/21 15:17) General/Regular (01/02/21 Dinner) Urine Culture (01/02/21 15:16) D50w (Emergency) Syringe (Dextrose 50% 5 (01/02/21 16:31) D50w (Emergency) Syringe (Dextrose 50% 5 (01/02/21 16:45) D50w (Emergency) Syringe (Dextrose 50% 5 (01/02/21 16:45) Medications Given in ED Current Medications Medications Dose Ordered Sig/Judi Route Start Time Stop Time Status Last Admin Dose Admin Dextrose 25 ml ONCE ONCE IV 01/02/21 16:45 01/02/21 16:46 DC 01/02/21 15:17 25 ML Dextrose 50 ml ONCE ONCE IV 01/02/21 16:45 01/02/21 16:46 DC 01/02/21 16:52 50 ML Vital Signs/I&O 01/02/21 14:55 Temp 33.9 Pulse 67 Resp 20 B/P (MAP) 122/89 (100) Pulse Ox 97 O2 Delivery Room Air Capillary Refill : Progress Note : Progress Note Received fax on urinalysis from [facility] from 12-31-20. Urine cul ture grew Klebsiella. Sensitivity to Levaquin. We will start the patient on 500 mg Levaquin once daily for 5 days. We will have her follow-up with her primary care doctor. Patient is currently eating here in the department. We will recheck her blood sugar momentarily. 1641 Patient's blood sugar rechecked currently 40. Patient is given a full amp of D50. Patient does recall taking some of her insulin last night at this point. She states that she ate several candies, 10-12 of them last night and her blood sugar was over 200 so at that point she decided to take a dose of her insulin. 1740 Patient ate, continues to feel better. Blood sugar checked after eating 101. Patient states that she thinks she is going to stop for a "Angelita cheese steak on the way home". Patient is given good return precautions. She verbalized understanding. She is going to hold off on using any more insulin until she follows up with her primary care doctor. All questions have been sought and answered. Patient is stable for discharge. Departure Impression Primary Impression: Hypoglycemia Additional Impression: Urinary tract infection Qualified Codes: N39.0 - Urinary tract infection, site not specified Disposition: HOME, SELF-CARE Condition: Stable Departure-Patient Inst. Decision time for Depature: 16:39 Referrals: MARIE LUNA DO (PCP/Family) Primary Care Physician Patient Instructions: Low Blood Sugar in People With Diabetes, Urinary Tract Infections in Adults Add. Discharge Instructions: Drink plenty of fluids to stay well-hydrated. I have given you a prescription for antibiotics for your urinary tract infection. Please take this once daily for the next 7 days. Please call and follow-up with your primary care physician next week to determine what dose of insulin you need to be on currently. Do not take any more insulin for now until you follow-up with your primary care physician. Scripts Levofloxacin (Levofloxacin) 250 Mg Tablet 250 MG PO DAILY for 7 Days, #7 TAB Prov: NORBERTO DELUCA MD 01/02/21 NORBERTO DELUCA MD January 02, 2021 15:31
[2021-01-02 15:38] LABS: BASOPHILS % (AUTO) 0 % (0-10); EOSINOPHILS # (AUTO) 0.1 10^3/uL (0.0-0.3); EOSINOPHILS % (AUTO) 1 % (0-10); HEMATOCRIT 32 % (35-52); HEMOGLOBIN 10.3 g/dL (11.5-16.0); LYMPHOCYTES # (AUTO) 0.3 10^3/uL (1.0-4.0); LYMPHOCYTES % (AUTO) 4 % (12-44); MEAN CORPUSCULAR HEMOGLOBIN 31 pg (25-34); MEAN CORPUSCULAR HGB CONC 32 g/dL (32-36); MEAN CORPUSCULAR VOLUME 94 fL (80-99); MEAN PLATELET VOLUME 10.7 fL (9.0-12.2); MONOCYTES # (AUTO) 0.3 10^3/uL (0.0-1.0); MONOCYTES % (AUTO) 4 % (0-12); NEUTROPHILS # (AUTO) 7.5 10^3/uL (1.8-7.8); NEUTROPHILS % (AUTO) 90 % (42-75); PLATELET COUNT 361 10^3/uL (130-400); WHITE BLOOD COUNT 8.3 10^3/uL (4.3-11.0)
[2021-01-02 15:56] LABS: CHLORIDE 101 MMOL/L (98-107); POTASSIUM 4.3 MMOL/L (3.6-5.0); SODIUM 137 MMOL/L (135-145)
[2021-01-02 15:57] LABS: CALCIUM 8.1 MG/DL (8.5-10.1)
[2021-01-02 15:58] LABS: GLUCOSE 72 MG/DL (70-105)
[2021-01-02 15:59] LABS: CARBON DIOXIDE 30 MMOL/L (21-32)
[2021-01-02 16:01] LABS: CREATININE SERUM 0.76 MG/DL (0.60-1.30); GFR ESTIMATED > 60
[2021-01-02 16:02] LABS: BUN/CREATININE RATIO 17
[2021-01-02 16:07] LABS: BAND NEUTROPHILS 0 %; EOSINOPHILS % (MANUAL) 0 %; LYMPHOCYTES % (MANUAL) 3 %; MONOCYTES % (MANUAL) 0 %; NEUTROPHILS % (MANUAL) 96 %; REACTIVE LYMPHOCYTES 1 %; TOXIC GRANULATION/VACUOLAZATIO 1+
[2021-01-02 16:10] LABS: BILIRUBIN,URINE NEGATIVE (NEGATIVE); CLARITY,URINE SL CLOUDY; COLOR,URINE YELLOW; GLUCOSE, URINE (UA) NEGATIVE (NEGATIVE); KETONES,URINE NEGATIVE (NEGATIVE); LEUKOCYTE ESTERASE ,URINE 1+ (NEGATIVE); NITRITE,URINE NEGATIVE (NEGATIVE); PH,URINE 6.5 (5-9); PROTEIN,URINE NEGATIVE (NEGATIVE)
[2021-01-02 16:17] LABS: BACTERIA,URINE LARGE /HPF; WBC,URINE 25-50 /HPF
[2021-01-02] MEDS ORDERED: LEVO250T46 PO (16:40)
[2021-01-02] MEDS ORDERED: DEXTROSE 50% 50 ML (IMS) SYR IV ONE ×2 (16:45)
[2021-01-02 18:05] VITALS: BP 121/77
== END 2021-01-02 18:07 | disposition home or self-care (01) ==
LOC: EDUNIT# 14:55 → ER 14:58
DX: E11.649 Type 2 diabetes mellitus with hypoglycemia without coma (principal); N39.0 Urinary tract infection, site not specified; I10 Essential (primary) hypertension; F41.9 Anxiety disorder, unspecified; I25.10 Atherosclerotic heart disease of native coronary artery without angina pectoris; K21.9 Gastro-esophageal reflux disease without esophagitis; E66.9 Obesity, unspecified; H40.9 Unspecified glaucoma; Z86.73 Personal history of transient ischemic attack (TIA), and cerebral infarction without residual deficits; Z87.891 Personal history of nicotine dependence; Z68.34 Body mass index [BMI] 34.0-34.9, adult; Z79.899 Other long term (current) drug therapy
CPT/HCPCS: 36415; 80048; 81000; 82947; 85007; 85027; 87077; 87088; 87184; 87186; 96374; 96376

== ENCOUNTER → 2022-06-29 | Outpatient (CLI) | payer MEDICARE, MEDICAID ==
[~2022-06-29] VITALS: Ht 167 cm; Wt 122.0 kg
[~2022-06-29] MED LIST changes: +ALBU8.5H6 IH; +CYCL10TA25 PO; -CYCL10TA9 PO; +DOXY-311 PO; -DOXY100C42 PO; +LEVO250T66 PO; +REGADENOSON 0.4 MG/5 ML SYR (LEXISCAN) IV ONE; -RT-ALBUINH IH
[2022-06-29] MEDS: CATHETER FLUSH 10 ML SYR IVP PRN ×2 (07:14→08:14)
[2022-06-29 07:59] VITALS: BP 213/115
--- NOTE | 2022-06-29 09:55 | Cardiology Stress Test Report ---
Stress Test Report Date of Procedure/Referring: Date of Procedure: Jun 29, 2022 PCP Marie Ayoub DO Admitting Physician Admitting Physician: Attending Physician: Marie Ayoub DO Indications: CP Baseline Vital Signs Vital Signs Date Time Temp Pulse Resp B/P (MAP) Pulse Ox O2 Delivery O2 Flow Rate FiO2 06/29/22 07:59 78 20 213/115 (147) 99 Room Air Summary: Patient receive a resting and stress dose of Myoview, images were acquired and reviewed in the short axis view, horizontal long axis view and vertical long axis view. TID: 1.13 SSS: 5 SDS: 4 EF: 44 1. Breast attenuation with reversible ischemia involving the anterior wall and anterolateral wall 2. Normal left ventricular size with hypokinesia of the inferior wall, ejection fraction 44% 3. No attenuation correction images were acquired Copy Copies To 1: MARIE AYOUB BASHAR J MD Jun 29, 2022 09:55
== END ==
LOC: CARD 07:00
PROVIDERS: ATTEND Internal Medicine
DX: R07.9 Chest pain, unspecified (principal); I87.2 Venous insufficiency (chronic) (peripheral); E11.69 Type 2 diabetes mellitus with other specified complication; M54.42 Lumbago with sciatica, left side
CPT/HCPCS: 78452; 93017; A9502

== ENCOUNTER 2023-03-01 12:29 | Inpatient (IN) | payer MEDICARE, MEDICAID ==
[~2023-03-01] VITALS: Ht 167 cm; Wt 116.0 kg
[~2023-03-01 12:29] MED LIST changes: -DOXY-311 PO; +DOXY-444 PO; +LIDO15SO3 PO; -LIDO20SO23 PO; -LIDO76.5 TP; +LIDO76.56 TP; -REGADENOSON 0.4 MG/5 ML SYR (LEXISCAN) IV ONE
--- NOTE | 2023-03-01 13:02 | ED Abdominal Pain ---
General Chief Complaint: Abdominal/GI Problems Stated Complaint: BOWEL OBSTRUCTION | UTI Nursing Triage Note: SEEN AT [facility] ON WEDNESDAY ET DX WITH A SBO AND UTI. DISCHARGED. SENT OVER TODAY BY DR AYOUB WITH A DIST ABD AND NO BM SINCE WEDNESDAY. PT HAS NOT BEEN TAKING HER LEVAQUIN FOR UTI ET STATES SHE JUST FOUND IT. Source of Information: Patient Exam Limitations: No Limitations History of Present Illness Date Seen by Provider: Mar 01, 2023 Time Seen by Provider: 12:46 Initial Comments 67-year-old female was sent to the ER by her primary care provider Dr. Ayoub for abdominal distention. She was seen at the ER in [facility] 02/26 and was told she had a bowel obstruction on CT and a urinary tract infection. She states that the ER provider spoke with the surgeon, who recommended outpatient treatment with 48 hours of clear liquid diet. She states that she was prescribed an antibiotic for the UTI, but has not started it because she could not find it. She complains of generalized mild abdominal pain, and abdominal distention. She states she feels short of breath due to being distended. Her last bowel movement was last Saturday 02/24. She states that prior to that she been having a lot of vomiting and diarrhea. She reports she has had a couple episodes of vomiting since Wednesday. She also reports burning with urination. Denies fevers. She reports a history of stage III kidney disease, diabetes, depression, neuropathy, and hypothyroidism. She has had a gastric bypass with complications, cholecystectomy, appendectomy, hysterectomy, and umbilical hernia repair. Allergies and Home Medications Allergies Uncoded Allergies: TAPE (Allergy, Intermediate, 11/11/14) Patient Home Medication List Home Medication List Reviewed: Yes Alprazolam (Alprazolam) 1 Mg Tablet, 1 MG PO QID PRN for ANXIETY, (Reported) Entered as Reported by: BRIAN ARMAS on 06/08/17 1737 Amlodipine Besylate (Amlodipine Besylate) 5 Mg Tablet, 5 MG PO DAILY, (Reported) Entered as Reported by: SHARON LAYNE on 07/08/17 0829 Atorvastatin Calcium (Lipitor) 10 Mg Tablet, 10 MG PO DAILY, (Reported) Entered as Reported by: SHARON LAYNE on 07/14/17 1438 Brimonidine Tartrate (Alphagan P) 5 Ml Drops, 1 DROP OU TID, (Reported) Entered as Reported by: MINI ANTHONY on 06/19/19 1013 Bupropion HCl (Bupropion HCl Sr) 150 Mg Tablet.er, 150 MG PO BID, (Reported) Entered as Reported by: SIENA BACON on 05/24/18 1331 Cyclobenzaprine HCl (Cyclobenzaprine HCl) 10 Mg Tablet, 10 MG PO TID, (Reported) Entered as Reported by: JOYCE FRANKLIN on 05/21/20 1131 Gabapentin (Gabapentin) 600 Mg Tablet, 600 MG PO BID, (Reported) Entered as Reported by: BRIAN ARMAS on 06/08/17 1737 Insulin Glargine,Hum.rec.anlog (Basaglar Kwikpen U-100) 100 Unit/1 Ml Insuln.pen, 20-80 UNITS SC HS PRN for DEPENDS ON BS, (Reported) Entered as Reported by: MINI ANTHONY on 06/19/19 1013 Latanoprost (Latanoprost) 2.5 Ml Drops, 1 DROP OU HS, (Reported) Entered as Reported by: MINI ANTHONY on 06/19/19 1013 Levofloxacin (Levofloxacin) 250 Mg Tablet, 250 MG PO DAILY Prescribed by: NORBERTO DELUCA on 01/02/21 1640 Levothyroxine Sodium (Levothyroxine Sodium) 25 Mcg Tablet, 25 MCG PO DAILY, (R eported) Entered as Reported by: BRIAN ARMAS on 06/08/17 1737 Linaclotide (Linzess) 72 Mcg Capsule, 72 MCG PO DAILY, (Reported) Entered as Reported by: JOYCE FRANKLIN on 05/21/20 1131 Lisinopril (Lisinopril) 40 Mg Tablet, 40 MG PO DAILY, (Reported) Entered as Reported by: SHARON LAYNE on 07/08/17 0829 Ondansetron (Ondansetron Odt) 8 Mg Tab.rapdis, 8 MG PO Q8H PRN for NAUSEA/VOMITING-1ST LINE, (Reported) Entered as Reported by: MINI ANTHONY on 06/19/19 1013 Pantoprazole Sodium (Pantoprazole Sodium) 40 Mg Tablet.dr, 40 MG PO DAILY Prescribed by: AAKASH MONTIEL on 03/08/20 0947 Sertraline HCl (Sertraline HCl) 50 Mg Tablet, 50 MG PO DAILY, (Reported) Entered as Reported by: SIENA BACON on 02/06/20 1209 Temazepam (Temazepam) 15 Mg Capsule, 15 MG PO HS, (Reported) Entered as Reported by: BRIAN ARMAS on 06/08/17 1737 Review of Systems Review of Systems Constitutional: see HPI Past Mznknyh-Cabczk-Wkklol Hx Patient Social History Tobacco Use?: Yes Tobacco type used: Cigarettes Smoking Status: Former Smoker Substance use?: No Alcohol Use?: No Immunizations Up To Date Tetanus Booster (TDap): Unknown Seasonal Allergies Seasonal Allergies: Yes Past Medical History Surgeries: Yes (GASTRIC BYPASS (HAD 2 MORE SURGERIES FOR INFECTION), BACK, ) Abdominal, Appendectomy, Eye Surgery, Gallbladder, Hysterectomy, Vascular Surgery Respiratory: Yes (PENUMONIA WITH SEPTIC SHOCK 05/2017) Pneumonia Currently Using CPAP: No Currently Using BIPAP: No Cardiac: Yes Coronary Artery Disease, Hypertension, Peripheral Vascular Neurological: Yes Stroke Reproductive Disorders: No 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 Sexually Transmitted Disease: No HIV/AIDS: No Genitourinary: Yes Renal Failure, UTI-Chronic Gastrointestinal: Yes (dysphagia) Gastroesophageal Reflux, Chronic Constipation Musculoskeletal: Yes (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, 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 IN SOFT TISSUE, L1-2 FX,) Back Injury, Chronic Back Pain, Fractures Endocrine: Yes (OBESITY) Diabetes, Insulin dep HEENT: Yes ( GLASSES, DENTURES) Glaucoma Hearing Impairment: Hard of Hearing Cancer: Yes (NECK/TONSILLAR CANCER) Did You Recieve Any Treatments: Yes What Type of Treatment Did You: Chemotherapy, Radiation Psychosocial: Yes Anxiety Integumentary: Yes (CHRONIC LEFT LEG AND FOOT ULCERS ) Blood Disorders: No Adverse Reaction/Blood Tranf: No (HAS HAD BLOOD WITH REACTION) Family Medical History Diabetes mellitus G8 BROTHER FH: skin cancer 19 FATHER Hypertension Physical Exam Vital Signs Vital Signs - First Documented 03/01/23 12:35 Temp 36.4 Pulse 82 Resp 16 B/P (MAP) 127/70 (89) Pulse Ox 91 O2 Delivery Room Air Capillary Refill : Less Than 3 Seconds Height/Weight/BMI Height: 5'5.00" Weight: 280lbs. 0.0oz. 127.777447cg; 41.00 BMI Method:Stated General Appearance: WD/WN, no apparent distress Neck: supple, normal inspection Respiratory: lungs clear, normal breath sounds, no respiratory distress, no accessory muscle use Cardiovascular: regular rate, rhythm Gastrointestinal: normal bowel sounds, soft; No guarding; tenderness (Mild generalized tenderness) Extremities: normal range of motion, normal inspection Neurologic/Psychiatric: alert, normal mood/affect Skin: normal color, warm/dry Progress/Results/Core Measures Results/Orders Lab Results Laboratory Tests Test 03/01/23 12:55 03/01/23 13:10 Range/Units White Blood Count 6.6 4.3-11.0 10^3/uL Red Blood Count 3.15 L 3.80-5.11 10^6/uL Hemoglobin 9.1 L 11.5-16.0 g/dL Hematocrit 29 L 35-52 % Mean Corpuscular Volume 93 80-99 fL Mean Corpuscular Hemoglobin 29 25-34 pg Mean Corpuscular Hemoglobin Concent 31 L 32-36 g/dL Red Cell Distribution Width 14.4 10.0-14.5 % Platelet Count 208 130-400 10^3/uL Mean Platelet Volume 11.5 9.0-12.2 fL Immature Granulocyte % (Auto) 0 % Neutrophils (%) (Auto) 77 H 42-75 % Lymphocytes (%) (Auto) 13 12-44 % Monocytes (%) (Auto) 6 0-12 % Eosinophils (%) (Auto) 3 0-10 % Basophils (%) (Auto) 0 0-10 % Neutrophils # (Auto) 5.1 1.8-7.8 10^3/uL Lymphocytes # (Auto) 0.9 L 1.0-4.0 10^3/uL Monocytes # (Auto) 0.4 0.0-1.0 10^3/uL Eosinophils # (Auto) 0.2 0.0-0.3 10^3/uL Basophils # (Auto) 0.0 0.0-0.1 10^3/uL Immature Granulocyte # (Auto) 0.0 0.0-0.1 10^3/uL Sodium Level 137 135-145 MMOL/L Potassium Level 3.7 3.6-5.0 MMOL/L Chloride Level 101 98-107 MMOL/L Carbon Dioxide Level 26 21-32 MMOL/L Anion Gap 10 5-14 MMOL/L Blood Urea Nitrogen 16 7-18 MG/DL Creatinine 1.25 0.60-1.30 MG/DL Estimat Glomerular Filtration Rate 47 BUN/Creatinine Ratio 13 Glucose Level 243 H 70-105 MG/DL Calcium Level 8.6 8.5-10.1 MG/DL Corrected Calcium 9.0 8.5-10.1 MG/DL Total Bilirubin 0.2 0.1-1.0 MG/DL Aspartate Amino Transf (AST/SGOT) 10 5-34 U/L Alanine Aminotransferase (ALT/SGPT) 6 0-55 U/L Alkaline Phosphatase 125 40-136 U/L Total Protein 7.2 6.4-8.2 GM/DL Albumin 3.5 3.2-4.5 GM/DL Lipase 69 8-78 U/L Urine Color YELLOW Urine Clarity CLOUDY Urine pH 5.5 5-9 Urine Specific [place] >=1.030 1.016-1.022 Urine Protein NEGATIVE NEGATIVE Urine Glucose (UA) 1+ H NEGATIVE Urine Ketones NEGATIVE NEGATIVE Urine Nitrite NEGATIVE NEGATIVE Urine Bilirubin NEGATIVE NEGATIVE Urine Urobilinogen 1.0 < = 1.0 MG/DL Urine Leukocyte Esterase TRACE H NEGATIVE Urine RBC (Auto) NEGATIVE NEGATIVE Urine RBC NONE /HPF Urine WBC 10-25 H /HPF Urine Squamous Epithelial Cells 2-5 /HPF Urine Crystals NONE /LPF Urine Bacteria MODERATE H /HPF Urine Casts NONE /LPF Urine Mucus NEGATIVE /LPF Urine Culture Indicated YES My Orders Orders - TAJ MONTILLA APRN Comprehensive Metabolic Panel (03/01/23 12:45) Lipase (03/01/23 12:45) Ua Culture If Indicated (03/01/23 12:45) Ed Iv/Invasive Line Start (03/01/23 12:45) Cbc With Automated Diff (03/01/23 12:45) Acute Abd Series (03/01/23 12:54) Urine Culture (03/01/23 13:10) Ct Abdomen/Pelvis W (03/01/23 13:58) Ns Iv 1000 Ml (Sodium Chloride 0.9%) (03/01/23 14:00) Iohexol Injection (Omnipaque 350 Mg/Ml 1 (03/01/23 14:15) Received Contrast (Hold Metformin- Contr (03/01/23 14:15) Ns (Ivpb) (Sodium Chloride 0.9% Ivpb Bag (03/01/23 14:15) Piperacillin Sodium/Tazobactam (Zosyn Vi (03/01/23 16:15) Meropenem (Merrem 1000 Mg) (03/01/23 16:15) Morphine Injection (Morphine Injection (03/01/23 16:26) Ed Admission (Communication) (03/01/23 16:29) Medications Given in ED Current Medications Medications Dose Ordered Sig/Judi Route Start Time Stop Time Status Last Admin Dose Admin Iohexol 100 ml ONCE ONCE IV 03/01/23 14:15 03/01/23 14:16 DC 03/01/23 15:00 75 ML Meropenem 1000 mg/ Sodium Chloride 100 ml @ 200 mls/hr ONCE ONCE IV 03/01/23 16:15 03/01/23 16:44 DC 03/01/23 17:44 200 MLS/HR Piperacillin Sod/ Tazobactam Sod 4.5 gm/Sodium Chloride 100 ml @ 200 mls/hr ONCE ONCE IV 03/01/23 16:15 03/01/23 16:44 DC 03/01/23 16:39 200 MLS/HR Sodium Chloride 100 ml ONCE ONCE IV 03/01/23 14:15 03/01/23 14:16 DC 03/01/23 15:00 80 ML Vital Signs/I&O 03/01/23 12:35 Temp 36.4 Pulse 82 Resp 16 B/P (MAP) 127/70 (89) Pulse Ox 91 O2 Delivery Room Air Blood Pressure Mean: 89 Progress Progress Note : Progress Note Patient seen and evaluated, resting comfortably in bed, no acute distress. Based on exam and symptoms, work-up initiated including CBC, CMP, lipase, UA, acute abdominal series x-rays. 1400 Labs and x-ray reviewed. CBC shows decreased hemoglobin of 9.1, decreased hematocrit 29. CMP shows GFR 47, creatinine 1.25, BUN 16, glucose elevated 243. Lipase normal. Urinalysis shows 1+ glucose, trace leukocytes, 10-25 WBCs, 2-5 squamous epithelial cells, moderate bacteria. Abdominal x-ray shows abnormal gastric small bowel and at least partial small bowel air distention with some scattered air fluid levels. Radiologist suggests possible ileus or early or partial small bowel obstruction. CT abdomen pelvis ordered with contrast. 1 L of IV fluids ordered. Medical records from [facility] received from previous visit on 02/26. The CT from this visit suggestion possibility of small bowel obstruction. The case was reviewed with Dr. Lafleur, surgery. He recommended clear liquid diet for the next 48 hours and outpatient follow-up. Labs from that visit showed hemoglobin of 9.7 and hematocrit of 31.6. It also showed creatinine of 1.57, BUN 24, and GFR of 33. 1627 CT reviewed. Possible strangulated or incarcerated umbilical hernia. Also a fluid collection that could be a bowel abscess is noted within the umbilical hernia. Proximal small bowel obstruction. Mid to distal small bowel is decompressed. I spoke with Dr. Lafleur, surgery, regarding patient. He agrees to admit patient to his services. He would like me to place bridge orders including IV fluids, Zosyn, pain and nausea medications. Patient is allowed to have ice chips. He would also like me to consult with the hospitalist. He does not want an NG unless patient is vomiting, patient has not been vomiting so will defer the NG. I consulted with Dr. Sales, hospitalist. He recommends meropenem for patient's UTI due to patient culturing ESBL at [facility]. Zosyn and meropenem ordered. Results discussed with patient. Patient requesting pain medication, it has been ordered. Diagnostic Imaging Diagonstic Imaging: Xray Plain Films/CT/US/NM/MRI: abdomen Comments [facility] [place], [place] NAME: TOSHA LEVINE [facility] REC#: [id number] PT STATUS: REG ER : 1955 PHYSICIAN: TAJ MONTILLA APRN ADMIT DATE: 03/01/23/ER Signed Date of Exam:03/01/23 ACUTE ABD SERIES INDICATION: Pain. TECHNIQUE: An acute abdominal series was performed. FINDINGS: The upright frontal chest shows no free air beneath the diaphragms. There is some prominence of the lung markings appearing chronic. No alveolar consolidation. The heart size is within normal limits. No pleural abnormality. Supine and upright abdominal films show a nonspecific but abnormal bowel gas pattern with air distention of the stomach and small as well as at least some gaseous dilatation of the large bowel. This could be an ileus or early small bowel obstruction. No abnormal fecal loading. There is air at the rectal vault. IMPRESSION: Abnormal gastric small and at least partial large bowel air distention with some scattered air-fluid levels, Ileus versus early or partial small bowel obstruction. No free gas. The chest appears nonacute. Dictated by: Dictated on workstation # [id number] Dict: 03/01/23 1332 Trans: 03/01/23 1355 [id number] Interpreted by: CHAR VALDERRAMA Electronically signed by: CHAR VALDERRAMA 03/01/23 1350 Diagonstic Imaging: CT Plain Films/CT/US/NM/MRI: abdomen, pelvis Comments [facility] [place] NAME: TOSHA LEVINE [facility] REC#: [id number] PT STATUS: REG ER : 1955 PHYSICIAN: TAJ MONTILLA APRN ADMIT DATE: 03/01/23/ER Draft Date of Exam:03/01/23 CT ABDOMEN/PELVIS W PROCEDURE: CT abdomen and pelvis with contrast. TECHNIQUE: Multiple contiguous axial images were obtained through the abdomen and pelvis after administration of intravenous contrast. Auto Exposure Controls were utilized during the CT exam to meet ALARA standards for radiation dose reduction. All CT scans use one or more of the following dose optimizing techniques: Automated exposure control, MA and/or KvP adjustment based on patient size and exam type or iterative reconstruction. INDICATION: Urinary tract infection and bowel obstruction, now with abdominal distention and lack of bowel movements. COMPARISON: Exam is correlated with CT angiogram abdomen and pelvis performed 05/18/2013. FINDINGS: There is gastric, duodenal, and proximal small bowel dilatation. Small bowel in the left upper quadrant measured a maximal diameter of 7.8 cm. The mid to distal small bowel is decompressed. There is stool in the colon without abnormal colonic caliber. This patient has had a chronic umbilical hernia; the hernia now is inflamed with adjacent skin thickening and subcutaneous stranding. Within the hernia sac, there is a central fluid attenuating material with a diameter of 4.1 cm. I cannot tell if this is an acute fluid collection or if this is a dilated viscus from the hernia. I cannot see an efferent or afferent loop of bowel going through a defect in the abdominal wall, and this does not reflect the transition zone in this proximal small bowel obstructive pattern. Gallbladder is absent. Liver, spleen, adrenals, and pancreas are unremarkable. The kidneys are unobstructed. The atherosclerotic aorta is nonaneurysmal. There are chronic renal cysts. There is no pneumatosis. There is no free gas. IMPRESSION: 1. Inflammatory changes associated with a chronic umbilical hernia suspicious for strangulation or incarceration. Centrally within this, there is a rim-enhancing central fluid attenuating material that may be an acute fluid collection such as abscess versus bowel content. Again, I cannot see a defect in the abdominal wall or an efferent or afferent loop of bowel entering this, and this is not the site of transition. 2. Proximal small bowel obstruction, etiology not defined, may be from adhesion. Mid to distal small bowel decompressed. Stool-containing colon is not grossly pathologic. 3. There are prior surgical changes to the stomach. Its evaluation is limited by compression from adjacent gas-containing dilated stomach and duodenum. Dictated on workstation # [id number] Dict: 03/01/23 1528 Trans: 03/01/23 1544 [id number] Interpreted by: CHAR VALDERRAMA Electronically signed by: Departure Communication (Admissions) Time/Spoke to Admitting Phy: 15:56 Dr. Lafleur, surgery, see progress note. Time/Spoke to Consulting Phy: 16:09 Dr. Sales, hospitalist, see progress note. Impression Primary Impression: Small bowel obstruction Additional Impressions: Incarcerated hernia Urinary tract infection Disposition: ADMITTED INPATIENT Condition: Stable Admissions Decision to Admit Reason: Admit from ER (General) Decision to Admit/Date: Mar 01, 2023 Time/Decision to Admit Time: 15:56 Departure-Patient Inst. Referrals: MARIE AYOUB DO (PCP/Family) Primary Care Physician TAJ MONTILLA APRN Mar 01, 2023 13:02
[2023-03-01 13:11] LABS: BASOPHILS % (AUTO) 0 % (0-10); EOSINOPHILS # (AUTO) 0.2 10^3/uL (0.0-0.3); EOSINOPHILS % (AUTO) 3 % (0-10); HEMATOCRIT 29 % (35-52); HEMOGLOBIN 9.1 g/dL (11.5-16.0); LYMPHOCYTES # (AUTO) 0.9 10^3/uL (1.0-4.0); LYMPHOCYTES % (AUTO) 13 % (12-44); MEAN CORPUSCULAR HEMOGLOBIN 29 pg (25-34); MEAN CORPUSCULAR HGB CONC 31 g/dL (32-36); MEAN CORPUSCULAR VOLUME 93 fL (80-99); MEAN PLATELET VOLUME 11.5 fL (9.0-12.2); MONOCYTES # (AUTO) 0.4 10^3/uL (0.0-1.0); MONOCYTES % (AUTO) 6 % (0-12); NEUTROPHILS # (AUTO) 5.1 10^3/uL (1.8-7.8); NEUTROPHILS % (AUTO) 77 % (42-75); PLATELET COUNT 208 10^3/uL (130-400); WHITE BLOOD COUNT 6.6 10^3/uL (4.3-11.0)
[2023-03-01 13:16] LABS: BILIRUBIN,URINE NEGATIVE (NEGATIVE); CLARITY,URINE CLOUDY; COLOR,URINE YELLOW; GLUCOSE, URINE (UA) 1+ (NEGATIVE); KETONES,URINE NEGATIVE (NEGATIVE); LEUKOCYTE ESTERASE ,URINE TRACE (NEGATIVE); NITRITE,URINE NEGATIVE (NEGATIVE); PH,URINE 5.5 (5-9); PROTEIN,URINE NEGATIVE (NEGATIVE)
[2023-03-01 13:24] LABS: ALBUMIN 3.5 GM/DL (3.2-4.5); POTASSIUM 3.7 MMOL/L (3.6-5.0)
[2023-03-01 13:24] LABS: BACTERIA,URINE MODERATE /HPF
[2023-03-01 13:26] LABS: CALCIUM 8.6 MG/DL (8.5-10.1)
[2023-03-01 13:27] LABS: TOTAL PROTEIN 7.2 GM/DL (6.4-8.2)
[2023-03-01 13:29] LABS: BILIRUBIN,TOTAL 0.2 MG/DL (0.1-1.0)
[2023-03-01 13:30] LABS: CREATININE SERUM 1.25 MG/DL (0.60-1.30)
--- NOTE | 2023-03-01 13:38 | Diagnostic Imaging Report ---
INDICATION: Pain. TECHNIQUE: An acute abdominal series was performed. FINDINGS: The upright frontal chest shows no free air beneath the diaphragms. There is some prominence of the lung markings appearing chronic. No alveolar consolidation. The heart size is within normal limits. No pleural abnormality. Supine and upright abdominal films show a nonspecific but abnormal bowel gas pattern with air distention of the stomach and small as well as at least some gaseous dilatation of the large bowel. This could be an ileus or early small bowel obstruction. No abnormal fecal loading. There is air at the rectal vault. IMPRESSION: Abnormal gastric small and at least partial large bowel air distention with some scattered air-fluid levels, Ileus versus early or partial small bowel obstruction. No free gas. The chest appears nonacute. Dictated by: Dictated on workstation # [id number]
[2023-03-01] MEDS ORDERED: NS IV 1000 ML 1,000 ML IV SCH (14:00)
[2023-03-01] MEDS ORDERED: IOHEXOL 350 MG/ML 100 ML (OMNIPAQUE 350) VIAL IV ONE (14:15)
[2023-03-01] MEDS ORDERED: HOLD METFORMIN - RECEIVED CONTRAST 20 ML VIAL IV SCH (14:15)
[2023-03-01] MEDS ORDERED: NS 100 ML (IVPB) BAG IV ONE (14:15)
--- NOTE | 2023-03-01 15:45 | Diagnostic Imaging Report ---
PROCEDURE: CT abdomen and pelvis with contrast. TECHNIQUE: Multiple contiguous axial images were obtained through the abdomen and pelvis after administration of intravenous contrast. Auto Exposure Controls were utilized during the CT exam to meet ALARA standards for radiation dose reduction. All CT scans use one or more of the following dose optimizing techniques: Automated exposure control, MA and/or KvP adjustment based on patient size and exam type or iterative reconstruction. INDICATION: Urinary tract infection and bowel obstruction, now with abdominal distention and lack of bowel movements. COMPARISON: Exam is correlated with CT angiogram abdomen and pelvis performed 05/18/2013. FINDINGS: There is gastric, duodenal, and proximal small bowel dilatation. Small bowel in the left upper quadrant measured a maximal diameter of 7.8 cm. The mid to distal small bowel is decompressed. There is stool in the colon without abnormal colonic caliber. This patient has had a chronic umbilical hernia; the hernia now is inflamed with adjacent skin thickening and subcutaneous stranding. Within the hernia sac, there is a central fluid attenuating material with a diameter of 4.1 cm. I cannot tell if this is an acute fluid collection or if this is a dilated viscus from the hernia. I cannot see an efferent or afferent loop of bowel going through a defect in the abdominal wall, and this does not reflect the transition zone in this proximal small bowel obstructive pattern. Gallbladder is absent. Liver, spleen, adrenals, and pancreas are unremarkable. The kidneys are unobstructed. The atherosclerotic aorta is nonaneurysmal. There are chronic renal cysts. There is no pneumatosis. There is no free gas. IMPRESSION: 1. Inflammatory changes associated with a chronic umbilical hernia suspicious for strangulation or incarceration. Centrally within this, there is a rim-enhancing central fluid attenuating material that may be an acute fluid collection such as abscess versus bowel content. Again, I cannot see a defect in the abdominal wall or an efferent or afferent loop of bowel entering this, and this is not the site of transition. 2. Proximal small bowel obstruction, etiology not defined, may be from adhesion. Mid to distal small bowel decompressed. Stool-containing colon is not grossly pathologic. 3. There are prior surgical changes to the stomach. Its evaluation is limited by compression from adjacent gas-containing dilated stomach and duodenum. Dictated by: Dictated on workstation # [id number]
[2023-03-01] MEDS ORDERED: MEROPENEM 1,000 MG in NS (IVPB) 100 ML IV ONE (16:15)
[2023-03-01] MEDS ORDERED: PIPERACILLIN SODIUM/TAZOBACTAM 4.5 GM in NS (IVPB) 100 ML IV ONE (16:15)
[2023-03-01] MEDS ORDERED: morphine INJ 10 MG/ML 1ML (SYR OR VIAL) IVP STA (16:26)
[2023-03-01 18:40] VITALS: BP 144/85
[2023-03-01] MEDS ORDERED: NS IV 1000 ML 1,000 ML ONE (19:27)
[2023-03-01] MEDS: NS IV 1000 ML 1,000 ML IV SCH (19:33)
[2023-03-01] MEDS ORDERED: PROCHLORPERAZINE 10 MG/2ML INJ (COMPAZINE) IV PRN (19:45)
[2023-03-01] MEDS ORDERED: ONDANSETRON 4 MG/2 ML (SDV) Z0FRAN IV PRN (19:45)
[2023-03-01 20:00] VITALS: BP 144/85
[2023-03-01] MEDS: inSUlin ASPART (NovoLOG) 1 UNIT/0.01 ML (CHARGE PER UNIT) SC SCH (21:25)
[2023-03-01] MEDS: MEROPENEM 500 MG/NS 100 ML IVPB IV SCH ×2 (23:13)
[2023-03-01 23:45] VITALS: BP 154/84
[2023-03-02] MEDS: PIPERACILLIN SODIUM/TAZOBACTAM 4.5 GM in NS (IVPB) 100 ML IV SCH ×2 (00:30→08:01)
[2023-03-02 03:23] VITALS: BP 138/72
[2023-03-02] MEDS: inSUlin ASPART (NovoLOG) 1 UNIT/0.01 ML (CHARGE PER UNIT) SC SCH ×4 (05:35→19:43)
[2023-03-02] MEDS: MEROPENEM 500 MG/NS 100 ML IVPB IV SCH ×8 (05:42→23:59)
[2023-03-02] MEDS: NS IV 1000 ML 1,000 ML IV SCH ×2 (05:43→10:30)
[2023-03-02 05:56] LABS: BASOPHILS % (AUTO) 0 % (0-10); EOSINOPHILS # (AUTO) 0.3 10^3/uL (0.0-0.3); EOSINOPHILS % (AUTO) 4 % (0-10); HEMATOCRIT 28 % (35-52); HEMOGLOBIN 8.6 g/dL (11.5-16.0); LYMPHOCYTES # (AUTO) 1.1 10^3/uL (1.0-4.0); LYMPHOCYTES % (AUTO) 15 % (12-44); MEAN CORPUSCULAR HEMOGLOBIN 28 pg (25-34); MEAN CORPUSCULAR HGB CONC 31 g/dL (32-36); MEAN CORPUSCULAR VOLUME 91 fL (80-99); MEAN PLATELET VOLUME 11.5 fL (9.0-12.2); MONOCYTES # (AUTO) 0.6 10^3/uL (0.0-1.0); MONOCYTES % (AUTO) 8 % (0-12); NEUTROPHILS # (AUTO) 5.6 10^3/uL (1.8-7.8); NEUTROPHILS % (AUTO) 73 % (42-75); PLATELET COUNT 224 10^3/uL (130-400); WHITE BLOOD COUNT 7.7 10^3/uL (4.3-11.0)
[2023-03-02 06:26] LABS: CALCIUM 8.2 MG/DL (8.5-10.1); CREATININE SERUM 0.91 MG/DL (0.60-1.30); POTASSIUM 3.9 MMOL/L (3.6-5.0)
[2023-03-02 07:10] VITALS: BP 155/79
[2023-03-02 11:29] VITALS: BP 140/77
[2023-03-02] MEDS ORDERED: FURO20TA4 PO (14:44)
[2023-03-02] MEDS ORDERED: OXYC20TA3 PO (14:44)
[2023-03-02] MEDS ORDERED: lactinex PO (14:44)
[2023-03-02] MEDS ORDERED: ERGO1250 PO (14:44)
[2023-03-02] MEDS ORDERED: APIX5TAB PO (14:44)
[2023-03-02] MEDS ORDERED: HYDR-3820 PO (14:45)
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
[2023-03-02 15:51] VITALS: BP 180/83
[2023-03-02 20:15] VITALS: BP 180/81
[2023-03-02] MEDS ORDERED: amLODIPine 5 MG (NORVASC) TAB PO ONE (20:30)
[2023-03-02] MEDS ORDERED: hydrALAZINE (APRESOLINE) 25 MG TAB PO PRN (20:30)
[2023-03-02] MEDS ORDERED: cloNIDine 0.1 MG (CATAPRES) TAB PO PRN (20:30)
[2023-03-02] MEDS ORDERED: ALPRAZolam 1 MG (XANAX) TAB ONE (21:04)
[2023-03-02] MEDS ORDERED: amLODIPine 5 MG (NORVASC) TAB ONE (21:04)
[2023-03-02] MEDS: ALPRAZolam 1 MG (XANAX) TAB PO PRN (21:12)
--- NOTE | 2023-03-02 22:46 | HISTORY AND PHYSICAL ---
DATE OF SERVICE: 03/01/2023 HISTORY AND PHYSICAL ATTENDING ADMITTING PHYSICIAN: Huber Ayoub DO HISTORY OF PRESENT ILLNESS: The patient is a 67-year-old female who was sent to the Emergency Department by her primary care physician due to abdominal distention. She reports that one week ago, she developed nausea and vomiting that lasted for approximately 1 day and then this did improve over time. She then reports developing some abdominal distention as well as mild crampy abdominal pain. She was then seen at [facility], where a CT scan was performed, which did show a possible partial small-bowel obstruction. At that time, her vital signs were stable. Lab work was normal and she was having some bowel function. The patient was instructed to proceed with bowel rest with a clear liquid diet. She was also found to have a urinary tract infection and was started on oral antibiotics. She states that the abdominal distention persisted; however, she did not develop any nausea, no vomiting. She states that she is passing flatus and did have a small bowel movement yesterday. The patient is status post laparoscopic Eliel-en-Y gastric bypass in [place] in 2017. Approximately 2 weeks after, she did develop a wound site infection requiring incision and drainage and debridement and wound VAC placement. The patient states that she also did have other abdominal surgeries including open appendectomy, total hysterectomy as well as a laparoscopic cholecystectomy and what she believes to be an umbilical hernia repair. At this time, she is comfortable. She does not report any nausea, no vomiting. Upon examination of the abdomen, she does have a ventral abdominal incisional hernia near the umbilicus. This is nonreducible, however, not tender to palpation. CT scan also did show dilatation of the gastric remnant along the biliopancreatic limb, which may just be an incidental finding related to an ileus; however, does bring up the question of the possibility of a stricture at the jejunojejunostomy. There is also dilatation of the gastric pouch. 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 Degenerative joint disease, coronary artery disease, history of pneumonia, history of stroke. PAST SURGICAL HISTORY: Laparoscopic Eliel-en-Y gastric bypass 17, incision and drainage and debridement of incision site, open appendectomy, total hysterectomy, laparoscopic cholecystectomy and possible abdominal wall hernia repair. Aortogram and bilateral runoff, bilateral cataract surgery, neck surgery. ALLERGIES: SOME FORMS OF TAPE. MEDICATIONS: Alprazolam 1 mg q.i.d. p.r.n., amlodipine 5 mg daily, atorvastatin 10 mg daily, brimonidine eye drops t.i.d., bupropion 150 mg b.i.d., cyclobenzaprine 10 mg t.i.d., gabapentin 600 mg b.i.d., glargine insulin sliding scale, latanoprost eye drops daily, levothyroxine 25 mcg daily. [ ] 72 mcg daily, lisinopril 40 mg daily, Zofran 8 mg p.r.n., Protonix 40 mg daily, sertraline 50 mg daily, temazepam 15 mg daily. SOCIAL HISTORY: Previous smoke, negative alcohol. FAMILY HISTORY: Brother, diabetes. REVIEW OF SYSTEMS: A well-nourished female, currently in no acute distress. She is not experiencing any shortness of breath or difficulty breathing. No chest pain, palpitations, diaphoresis. No cough or sputum production. One week ago, nausea and vomiting. No hematemesis, no coffee-ground emesis. She was having bowel movements as well as flatus with the last bowel movement yesterday. No red blood per rectum, no dark tarry stools. No fever, chills, no recent inadvertent weight loss. All other review of systems negative. PHYSICAL EXAMINATION: VITAL SIGNS: Temperature 37.1, blood pressure 180/81, pulse 79, respirations 20, pulse ox 90% on room air. CHEST: Scattered rales bilaterally. HEART: Regular. No murmurs. EXTREMITIES: Plus 1/3 bilateral lower extremity edema with skin changes along bilateral lower extremities consistent with chronic venous insufficiency. Negative Homans sign. HEENT: No scleral icterus. No cervical lymphadenopathy. ABDOMEN: Slightly distended. There is a ventral abdominal incisional hernia near the umbilicus as well as a previous scar, which is nonreducible and nontender to palpation. Mild abdominal distention. SKIN: Warm, dry. LABORATORY DATA: WBC 7.7, hemoglobin 8.6, hematocrit 28, platelets 224. BUN 12, creatinine 0.91, blood sugar 156. ASSESSMENT AND PLAN: A 67-year-old female with a 1-week history of nausea, vomiting, diarrhea, crampy abdominal pain and abdominal distention. She is also status post Eliel-en-Y gastric bypass in 2017. CT scan did show a dilated gastric pouch as well as a gastric remnant, which puts into question the possibility of gastrojejunal stricture of the Eliel limb; however, there is also the possibility of a jejunojejunostomy stricture as well. The patient also does have an incarcerated ventral abdominal incisional hernia. At this time, she is comfortable and is in no acute distress with normal vital signs and a normal white count. We will likely start with an EGD to look for the possibility of a gastrojejunal stricture and possible balloon dilatation if indicated. She may also need small bowel follow through to look for the possibility of a distal small bowel stricture versus any area of transition zone, which may be due to adhesion tissue. Based on these findings, we will determine our potential surgical approach. This may encompass exploratory laparotomy, lysis of adhesions as well as possible revision of the jejunojejunostomy. Simultaneously, she would need the ventral abdominal incisional hernia repaired as well. Job ID: [id number] DocumentID: [id number] Dictated Date: 03/02/2023 21:57:59 Curing Supervisor Date: 03/02/2023 22:43:00 Dictated By: KAT SMITH MD [facility]
[2023-03-02 23:29] VITALS: BP 145/67
[2023-03-03] VITALS (7 sets, daily range): BP systolic 135–196; BP diastolic 74–96
[2023-03-03] MEDS: NS IV 1000 ML 1,000 ML IV SCH ×3 (00:01→21:01)
[2023-03-03] MEDS: ALPRAZolam 1 MG (XANAX) TAB PO PRN ×4 (03:07→21:00)
[2023-03-03] MEDS ORDERED: MEROPENEM 500 MG VIAL (MERREM) IV ONE (05:34)
[2023-03-03] MEDS: inSUlin ASPART (NovoLOG) 1 UNIT/0.01 ML (CHARGE PER UNIT) SC SCH ×4 (05:45→20:49)
[2023-03-03] MEDS: MEROPENEM 500 MG/NS 100 ML IVPB IV SCH ×6 (06:01→17:35)
[2023-03-03] MEDS: amLODIPine 5 MG (NORVASC) TAB PO SCH ×2 (07:31→07:57)
[2023-03-03] MEDS ORDERED: DIATRIZOATE MEGLUM/SODIUM 37% 120 ML (GASTROGRAFIN) NG ONE (07:45)
[2023-03-03] MEDS: PANTOPRAZOLE 40 MG (PROTONIX) VIAL IV SCH ×2 (08:07→20:58)
[2023-03-03 08:55] LABS: BASOPHILS % (AUTO) 0 % (0-10); EOSINOPHILS # (AUTO) 0.2 10^3/uL (0.0-0.3); EOSINOPHILS % (AUTO) 4 % (0-10); HEMATOCRIT 30 % (35-52); HEMOGLOBIN 9.6 g/dL (11.5-16.0); LYMPHOCYTES # (AUTO) 1.1 10^3/uL (1.0-4.0); LYMPHOCYTES % (AUTO) 19 % (12-44); MEAN CORPUSCULAR HEMOGLOBIN 29 pg (25-34); MEAN CORPUSCULAR HGB CONC 32 g/dL (32-36); MEAN CORPUSCULAR VOLUME 91 fL (80-99); MEAN PLATELET VOLUME 11.5 fL (9.0-12.2); MONOCYTES # (AUTO) 0.4 10^3/uL (0.0-1.0); MONOCYTES % (AUTO) 6 % (0-12); NEUTROPHILS # (AUTO) 3.9 10^3/uL (1.8-7.8); NEUTROPHILS % (AUTO) 70 % (42-75); PLATELET COUNT 233 10^3/uL (130-400); WHITE BLOOD COUNT 5.6 10^3/uL (4.3-11.0)
[2023-03-03 09:03] LABS: ALBUMIN 3.2 GM/DL (3.2-4.5)
[2023-03-03 09:05] LABS: CALCIUM 8.3 MG/DL (8.5-10.1)
[2023-03-03 09:06] LABS: TOTAL PROTEIN 6.6 GM/DL (6.4-8.2)
[2023-03-03 09:08] LABS: BILIRUBIN,TOTAL 0.2 MG/DL (0.1-1.0)
[2023-03-03 09:09] LABS: CREATININE SERUM 0.86 MG/DL (0.60-1.30)
[2023-03-03] MEDS ORDERED: hydrALAZINE (APESOLINE) 20 MG/ML VIAL IV PRN (10:30)
[2023-03-03] MEDS ORDERED: amLODIPine 5 MG (NORVASC) TAB PO NR (10:30)
--- NOTE | 2023-03-03 11:07 | Progress Note-Pre Operative ---
Pre-Operative Progress Note Date of Available H&P: Mar 03, 2023 Date H&P Reviewed: Mar 03, 2023 Time H&P Reviewed: 11:00 History & Physical: No changes noted Pre-Operative Diagnosis: nausea/vomiting KAT SMITH MD Mar 03, 2023 11:06
[2023-03-03] MEDS ORDERED: LACTATED RINGERS 1,000 ML IV ONE (13:02)
[2023-03-03] MEDS ORDERED: LACTATED RINGERS 1,000 ML IV STA (13:12)
[2023-03-03] MEDS ORDERED: PROPOFOL INJECTION 50 ML IV ONE (13:12)
[2023-03-03] MEDS ORDERED: HURRICAINE EXT TUBE (BENZOCAINE) ONE (13:15)
[2023-03-03] MEDS ORDERED: HURRICAINE EXT TUBE (BENZOCAINE) XX PRN (13:15)
[2023-03-03] MEDS ORDERED: LIDOCAINE JELLY 2% 6 ML SYRINGE MM PRN (13:15)
[2023-03-03] MEDS ORDERED: LIDOCAINE JELLY 2% 6 ML SYRINGE ONE (13:17)
--- NOTE | 2023-03-03 13:46 | Anesthesia-General Post-Op ---
MAC Patient Condition Mental Status/LOC: Same as Preop Cardiovascular: Satisfactory Nausea/Vomiting: Absent Respiratory: Satisfactory Pain: Controlled Complications: Absent Post Op Complications Complications None Follow Up Care/Instructions Patient Instructions None needed. Anesthesiology Discharge Order Discharge Order Patient is doing well, no complaints, stable vital signs, no apparent adverse anesthesia problems. No complications reported per nursing. EUGENIA REYES CRNA Mar 03, 2023 13:46
--- NOTE | 2023-03-03 14:01 | Progress Note-Post Operative ---
Post-Operative Progess Note Surgeon (s)/Egg Setter (s) Surgeon KAT SMITH MD Egg Setter: none Pre-Operative Diagnosis nausea/vomiting Post-Operative Diagnosis reflux esophagitis(grade B-C), moderate gastritis gastric pouch, widely patent ender limb. no strictures. Procedure & Operative Findings Date of Procedure 03/03/23 Procedure Performed/Findings EGD with bx. Anesthesia Type mac Estimated Blood Loss Estimated blood loss (mL): minimal Specimens/Packing Specimens Removed stomach, ge jxn KAT SMITH MD Mar 03, 2023 14:01
--- NOTE | 2023-03-03 14:02 | Progress Note-Pre Operative ---
Pre-Operative Progress Note Date of Available H&P: Mar 03, 2023 Date H&P Reviewed: Mar 03, 2023 Time H&P Reviewed: 14:00 History & Physical: No changes noted Pre-Operative Diagnosis: incarcerated recurrent ventral abdominal incisional hernia KAT SMITH MD Mar 03, 2023 14:02
[2023-03-03] MEDS ORDERED: LATA2.5D19 OU (15:07)
[2023-03-03] MEDS ORDERED: PANT40TA52 PO (15:07)
[2023-03-03] MEDS ORDERED: LEVO250T66 PO (15:07)
[2023-03-03] MEDS ORDERED: OXYC10TA7 PO (15:07)
[2023-03-03] MEDS ORDERED: ONDA4TAB11 PO (15:07)
[2023-03-03] MEDS ORDERED: APIX5TAB PO (15:07)
[2023-03-03] MEDS ORDERED: DIPH25TA65 PO (15:07)
[2023-03-03] MEDS ORDERED: FURO20TA4 PO (15:07)
[2023-03-03] MEDS ORDERED: BUPR-105 PO (15:07)
[2023-03-03] MEDS ORDERED: HYDR-3820 PO (15:07)
[2023-03-03] MEDS ORDERED: ACID1TAB PO (15:07)
[2023-03-03] MEDS ORDERED: ERGO1250 PO (15:07)
[2023-03-03] MEDS ORDERED: CYCL5TAB PO (15:07)
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
--- NOTE | 2023-03-03 21:35 | OPERATIVE REPORT ---
DATE OF SERVICE: 03/03/2023 ATTENDING PRIMARY CARE PHYSICIAN: Dr. Huber Ayoub. PREOPERATIVE DIAGNOSES: Nausea, vomiting, crampy abdominal pain, abdominal distention. POSTOPERATIVE DIAGNOSES: Reflux esophagitis between Green grade B to C, moderate gastritis of the gastric pouch, normal afferent and efferent limbs with no gastrojejunal strictures. PROCEDURE: EGD with biopsy. SURGEON: Kat Smith MD ANESTHESIA: Monitored anesthesia care. ESTIMATED BLOOD LOSS: Minimal. FINDINGS: Reflux esophagitis between Green grade B to C, moderate gastritis of the gastric pouch, normal afferent and efferent limbs with no gastrojejunal strictures. DISPOSITION: The patient tolerated the procedure well. INDICATIONS: The patient is a 67-year-old female who developed nausea and vomiting approximately 8 days ago, which lasted for approximately 24 hours. This did improve over time; however, she had then developed crampy abdominal pain and abdominal distention. She initially had a CT scan at another institution, which did show a partial small-bowel obstruction. On this admission, there was some distended loops of small bowel as well as colon. CT scan also detected an incarcerated ventral abdominal incisional hernia. DESCRIPTION OF PROCEDURE: The patient was brought to the endoscopy suite and laid in the left lateral decubitus position. After adequate IV pain and sedative medications and monitored anesthesia care, the mouthpiece was applied. The endoscope was placed in the mouth, visualizing the pharynx and hypopharyngeal region. Vocal cords, epiglottis and vallecula identified and appeared to be normal. The endoscope was then gently intubated into the esophageal opening and esophagus insufflated. The endoscope was then advanced through the first, second and third portions of esophagus. At the level of the GE junction, a reflux esophagitis between Green grade B to C identified. No ulcers or strictures and a biopsy was taken with forceps with visualization of good hemostasis. The endoscope was then advanced into the gastric pouch, which was of normal size with moderate gastritis and a biopsy was taken of the gastric pouch to rule out H. pylori. The afferent and the efferent limbs of the gastrojejunostomy were widely patent with no strictures identified. The endoscope was then advanced into the biliopancreatic limb, which was widely patent. We were unable to identify the jejunojejunostomy. There did not seem to be any excessive dilatation of the Eliel limb to indicate any distal obstruction. The endoscope was then slowly withdrawn while taking a second look and suctioning of residual air with no additional findings. The patient tolerated the procedure well. We will continue to recommend the necessary lifestyle and dietary accommodation including small and more frequent meals as well as high protein diet with lean meat protein that should be first and foremost and once feeling of fullness or satiety to stop eating and to not drink liquids with her meals. We will proceed with a repair of the ventral abdominal incisional hernia. Job ID: [id number] DocumentID: [id number] Dictated Date: 03/03/2023 13:54:07 Project Developer Date: 03/03/2023 21:32:00 Dictated By: KAT SMITH MD MTDD
[2023-03-04] VITALS (12 sets, daily range): BP systolic 140–181; BP diastolic 72–91
[2023-03-04] MEDS: MEROPENEM 500 MG/NS 100 ML IVPB IV SCH ×10 (01:28→23:35)
[2023-03-04 05:18] LABS: BASOPHILS % (AUTO) 1 % (0-10); EOSINOPHILS # (AUTO) 0.3 10^3/uL (0.0-0.3); EOSINOPHILS % (AUTO) 5 % (0-10); HEMATOCRIT 31 % (35-52); HEMOGLOBIN 9.7 g/dL (11.5-16.0); LYMPHOCYTES # (AUTO) 1.2 10^3/uL (1.0-4.0); LYMPHOCYTES % (AUTO) 24 % (12-44); MEAN CORPUSCULAR HEMOGLOBIN 28 pg (25-34); MEAN CORPUSCULAR HGB CONC 31 g/dL (32-36); MEAN CORPUSCULAR VOLUME 91 fL (80-99); MEAN PLATELET VOLUME 11.3 fL (9.0-12.2); MONOCYTES # (AUTO) 0.4 10^3/uL (0.0-1.0); MONOCYTES % (AUTO) 8 % (0-12); NEUTROPHILS # (AUTO) 3.2 10^3/uL (1.8-7.8); NEUTROPHILS % (AUTO) 62 % (42-75); PLATELET COUNT 267 10^3/uL (130-400); WHITE BLOOD COUNT 5.2 10^3/uL (4.3-11.0)
[2023-03-04] MEDS: inSUlin ASPART (NovoLOG) 1 UNIT/0.01 ML (CHARGE PER UNIT) SC SCH ×4 (05:20→21:50)
[2023-03-04 05:27] LABS: POTASSIUM 3.7 MMOL/L (3.6-5.0)
[2023-03-04 05:29] LABS: CALCIUM 8.5 MG/DL (8.5-10.1)
[2023-03-04 05:33] LABS: CREATININE SERUM 0.84 MG/DL (0.60-1.30)
[2023-03-04] MEDS: fentaNYL INJ 100 MCG/2 ML AMP IV PRN ×3 (07:00→14:35)
[2023-03-04] MEDS: NS IV 1000 ML 1,000 ML IV SCH ×3 (07:01→23:35)
[2023-03-04] MEDS: PANTOPRAZOLE 40 MG (PROTONIX) VIAL IV SCH ×2 (08:37→21:50)
[2023-03-04] MEDS: amLODIPine 5 MG (NORVASC) TAB PO SCH (08:37)
[2023-03-04] MEDS ORDERED: IRON SUCROSE 200 MG/10 ML (VENOFER) VIAL IV SCH (09:00)
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
[2023-03-04] MEDS ORDERED: LACTATED RINGERS 1,000 ML IV PRN ×2 (12:15→16:45)
[2023-03-04] MEDS ORDERED: ONDANSETRON 4 MG/2 ML (SDV) Z0FRAN ONE (13:50)
[2023-03-04] MEDS ORDERED: proPOfol 200 MG/20 ML (DIPRIVAN) VIAL IV ONE (13:50)
[2023-03-04] MEDS ORDERED: SEVOFLURANE (ULTANE) 15 ML INHAL SOLN ONE ×2 (13:50→16:35)
[2023-03-04] MEDS ORDERED: LIDOCAINE PF 2% 5 ML (XYLOCAINE) VIAL ONE (13:50)
[2023-03-04] MEDS ORDERED: MIDAZOLAM 2 MG/2 ML (VERSED) VIAL ONE (13:51)
[2023-03-04] MEDS ORDERED: fentaNYL INJ 100 MCG/2 ML AMP ONE (13:51)
[2023-03-04] MEDS ORDERED: LIDOCAINE/EPI 1%-1:100,000 (XYLOCAINE) 20ML ONE (14:16)
[2023-03-04] MEDS ORDERED: ceFAZolin INJECTION 2,000 MG ONE (15:33)
[2023-03-04] MEDS ORDERED: ceFAZolin INJECTION 2,000 MG in NS (IVPB) 50 ML IV ONE (15:45)
[2023-03-04] MEDS ORDERED: LIDOCAINE/EPI 1%-1:100,000 (XYLOCAINE) 20ML INJ ONE (16:10)
[2023-03-04] MEDS ORDERED: ceFAZolin INJECTION 1,000 MG VIAL IV ONE (16:15)
[2023-03-04] MEDS ORDERED: ROCURONIUM 50 MG/5 ML (ZEMURON) VIAL IV ONE (16:25)
[2023-03-04] MEDS ORDERED: GLYCOPYRROLATE 0.2 MG/ML (ROBINUL) 2 ML VIAL ONE (16:27)
[2023-03-04] MEDS ORDERED: NEOSTIGMINE (BLOXIVERZ ) 1 MG/1ML 10 ML VIAL ONE (16:27)
--- NOTE | 2023-03-04 16:35 | Progress Note-Post Operative ---
Post-Operative Progess Note Surgeon (s)/Welfare Service Aide (s) Surgeon KAT SMITH MD Welfare Service Aide: none Pre-Operative Diagnosis incarcerated recurrent ventral abdominal incisional hernia Post-Operative Diagnosis same with retained mesh and FB Procedure & Operative Findings Date of Procedure 03/04/23 Procedure Performed/Findings explantation previous mesh and foreign body, primary repair ventral abd incisional hernia repair. Anesthesia Type get Estimated Blood Loss Estimated blood loss (mL): minimal Specimens/Packing Specimens Removed old mesh and abd wall foreign body. KAT SMITH MD Mar 04, 2023 16:35
[2023-03-04] MEDS ORDERED: morphine INJ 10 MG/ML 1ML (SYR OR VIAL) ONE (16:54)
[2023-03-04] MEDS ORDERED: morphine INJ 10 MG/ML 1ML (SYR OR VIAL) IVP ONE (17:00)
[2023-03-04] MEDS ORDERED: ONDANSETRON 4 MG/2 ML (SDV) Z0FRAN IVP PRN (17:00)
[2023-03-04] MEDS ORDERED: HYDROmorphone 2 MG/ML VIAL (DILAUDID) IV ONE (17:00)
[2023-03-04] MEDS ORDERED: PROMETHAZINE INJ 25 MG/ML (PHENERGAN) AMP IVP ONE (17:00)
[2023-03-04] MEDS ORDERED: HYDROmorphone 2 MG/ML VIAL (DILAUDID) ONE (17:10)
--- NOTE | 2023-03-04 19:44 | OPERATIVE REPORT ---
DATE OF SERVICE: 03/04/2023 ATTENDING PRIMARY CARE PHYSICIAN: Dr. Huber Ayoub. PREOPERATIVE DIAGNOSES: Nausea, vomiting, crampy abdominal pain and distention with a recurrent ventral abdominal incisional hernia. POSTOPERATIVE DIAGNOSES: Nausea, vomiting, crampy abdominal pain and distention with a recurrent ventral abdominal incisional hernia with a recurrent ventral abdominal incisional hernia with foreign body. PROCEDURE: Explantation previous mesh and foreign body. Primary fascial closure over a previous what appears to be biologic underlay mesh. SURGEON: Kat Smith MD FISH STRAIGHTENER: Nilesh Andre APRN ANESTHESIA: General endotracheal. ESTIMATED BLOOD LOSS: Minimal. FINDINGS: Nausea, vomiting, crampy abdominal pain and distention with a recurrent ventral abdominal incisional hernia with a recurrent ventral abdominal incisional hernia with foreign body. DISPOSITION: The patient tolerated the procedure well. INDICATIONS: The patient is a 67-year-old female who developed nausea and vomiting approximately 7-8 days previous to admission. This lasted for approximately 24 hours. This did improve at home over time; however, she then developed crampy abdominal pain and abdominal distention. She initially had a CT scan done at another institution, which did show some dilated loops of small bowel consistent with partial small-bowel obstruction. On this admission at this hospital, there were another CT scan was performed, which showed distended loops of small bowel as well as in the colon. This CT scan also detected incarcerated ventral abdominal incisional hernia. Since being admitted, she has not had any episodes of nausea and vomiting and has had small bowel movements and passage of flatus. She also underwent an EGD and was found to have no gastrojejunal strictures. We are now proceeding with a recurrent ventral abdominal incisional hernia. DESCRIPTION OF PROCEDURE: The patient was brought to the operating room, laid supine on the table. After adequate IV pain and sedative medications and general endotracheal intubation, the abdomen was prepped and draped in standard surgical fashion. A 0.5% Marcaine with epinephrine was then used to anesthetize the overlying skin along the left side of the umbilicus in a crescent-shaped. A skin incision was then made in the same shape using a #15 blade. Subcutaneous tissue was then dissected using electrocautery. A very large foreign body was identified as well as what appeared to be balled up previous mesh. We then proceeded with meticulous dissection around this balled up mesh using electrocautery as well as Metzenbaum scissors until the fascial base was identified with visualization of good hemostasis. At the top of this balled up hernia was a foreign body. We then proceeded with opening of the recurrent ventral abdominal incisional hernia with Metzenbaum scissors and there appeared to be again scar tissue within this as well as the foreign body. We then proceeded with explantation of the previous mesh. An underlay mesh was also identified, which likely meant that she has had 2 previous hernia repairs. This mesh did appear to be intact; however, this appeared to be a biologic and was bowing outward. Due to the laxity of this mesh, we decided to proceed with a primary repair of the patient's own fascia over this mesh. We did this using a #1 looped PDS running suture. Good hemostasis was observed. Subcutaneous tissue was then reapproximated using 3-0 Vicryl interrupted sutures. Skin was closed using 4-0 Monocryl running subcuticular suture. Wound was then cleaned and covered with Dermabond, followed by tonsil sponges, 4 x 4 gauze and a large Op-Site. The patient tolerated the procedure well. We will admit her back to the floor and proceed with pain control. She has improved since being admitted and we will also verify GI continuity with a small bowel follow through tomorrow morning. Job ID: [id number] DocumentID: [id number] Dictated Date: 03/04/2023 16:50:02 [place] Date: 03/04/2023 19:42:00 Dictated By: KAT SMITH MD
[2023-03-04] MEDS: ALPRAZolam 1 MG (XANAX) TAB PO PRN (21:30)
[2023-03-05] VITALS: BP 121/70
[2023-03-05 04:00] VITALS: BP 136/65
[2023-03-05] MEDS: fentaNYL INJ 100 MCG/2 ML AMP IV PRN (04:34)
[2023-03-05 05:57] LABS: BASOPHILS % (AUTO) 0 % (0-10); EOSINOPHILS % (AUTO) 0 % (0-10); HEMATOCRIT 29 % (35-52); HEMOGLOBIN 9.1 g/dL (11.5-16.0); LYMPHOCYTES # (AUTO) 0.9 10^3/uL (1.0-4.0); LYMPHOCYTES % (AUTO) 10 % (12-44); MEAN CORPUSCULAR HEMOGLOBIN 28 pg (25-34); MEAN CORPUSCULAR HGB CONC 31 g/dL (32-36); MEAN CORPUSCULAR VOLUME 91 fL (80-99); MEAN PLATELET VOLUME 11.4 fL (9.0-12.2); MONOCYTES # (AUTO) 0.5 10^3/uL (0.0-1.0); MONOCYTES % (AUTO) 5 % (0-12); NEUTROPHILS # (AUTO) 8.2 10^3/uL (1.8-7.8); NEUTROPHILS % (AUTO) 84 % (42-75); PLATELET COUNT 291 10^3/uL (130-400); WHITE BLOOD COUNT 9.7 10^3/uL (4.3-11.0)
[2023-03-05 06:17] LABS: CALCIUM 8.2 MG/DL (8.5-10.1); CREATININE SERUM 0.94 MG/DL (0.60-1.30); POTASSIUM 4.2 MMOL/L (3.6-5.0)
[2023-03-05] MEDS: inSUlin ASPART (NovoLOG) 1 UNIT/0.01 ML (CHARGE PER UNIT) SC SCH ×2 (06:18→11:27)
[2023-03-05] MEDS: MEROPENEM 500 MG/NS 100 ML IVPB IV SCH ×4 (06:40→11:56)
[2023-03-05 07:57] VITALS: BP 175/124
[2023-03-05] MEDS ORDERED: DIATRIZOATE MEGLUM/SODIUM 37% 120 ML (GASTROGRAFIN) PO ONE (09:15)
--- NOTE | 2023-03-05 09:59 | Anesthesia-General Post-Op ---
General Patient Condition Mental Status/LOC: Same as Preop Cardiovascular: Satisfactory Nausea/Vomiting: Absent Respiratory: Satisfactory Pain: Controlled Complications: Absent Post Op Complications Complications None Follow Up Care/Instructions Patient Instructions None needed. Anesthesia/Patient Condition Patient Condition Patient is doing well, no complaints, stable vital signs, no apparent adverse anesthesia problems. No complications reported per nursing. EUGENIA REYES CRNA Mar 05, 2023 09:59
[2023-03-05] MEDS: PANTOPRAZOLE 40 MG (PROTONIX) VIAL IV SCH (10:24)
[2023-03-05] MEDS: amLODIPine 5 MG (NORVASC) TAB PO SCH (10:25)
[2023-03-05] MEDS: ALPRAZolam 1 MG (XANAX) TAB PO PRN (10:25)
--- NOTE | 2023-03-05 11:10 | Physical Therapy Evaluation ---
PT Evaluation-General Medical Diagnosis Admission Date Mar 01, 2023 at 17:51 Medical Diagnosis: incarcerated herrnia/small bowel obstruction Onset Date: Mar 01, 2023 Therapy Diagnosis Therapy Diagnosis: debility Height/Weight Height (Feet): 5 Height (Inches): 5.00 Weight (Pounds): 280 Weight (Ounces): 0.0 Precautions Precautions/Isolations: Standard Precautions Referral Physician: Mónica Reason for Referral: Evaluation/Treatment Medical History Pertinent Medical History: CAD, DM, HTN, PVD, Renal Insufficiency Additional Medical History gastric bypass Current History ER secondary to abdominal distention Reviewed History: Yes Social History Home: Single Level Current Living Status: Alone Entry Into Home: Ramp Prior Prior Level of Function SCALE: Activities may be completed with or without assistive devices. 3-Arskxbvzql-zukougu completes the activity by him/herself with no assistance from a helper. 5-Set-up or Clean-up Assistance-helper sets up or cleans up; patient completes activity. [place] assists only prior to or following the activity. 4-Supervision or Touching Assistance-helper provides verbal cues and/or touching/steadying and/or contact guard assistance as patient completes activity. Assistance may be provided throughout the activity or intermittently. 3-Partial/Moderate Assistance-helper does LESS THAN HALF the effort. [place] lifts, holds or supports trunk or limbs, but provides less than half the effort. 2-Substantial/Maximal Assistance-helper does MORE THAN HALF the effort. [place] lifts or holds trunk or limbs and provides more than half the effort. 7-Kjotzstxa-bmxqrg does ALL the effort. Patient does none of the effort to complete the activity. Or, the assistance of 2 or more helpers is required for the patient to complete the activity. If activity was not attempted, code reason: 7-Patient Refused. 9-Not Applicable-not attempted and the patient did not perform the activity before the current illness, exacerbation or injury. 10-Not Attempted due to Environmental Limitations-(lack of equipment, weather restraints, etc.). 88-Not Attempted due to Medical Conditions or Safety Concerns. Bed Mobility: 6 Transfers (B,C,W/C): 6 Gait: 6 Prior Devices Use: Motorized scooter, Walker (4WW) PT Evaluation-Current Subjective Patient agrees to PT. Objective Patient Orientation: Normal For Age ROM/Strength ROM Lower Extremities bilateral LE WFL Strength Lower Extremities 4/5 grossly bilateral LE all planes Integumentary/Posture Integumentary refer to nursing notes Bowel Incontinence: No Bladder Incontinence: No Posture trunk flexed posture Neuromuscular (Tone, Coordination, Reflexes) grossly intact with all Sensory Vision: Wears Glasses Hearing: Functional Transfers Sit to Stand (QC): 6 Chair/Cql-hg-Enkob Xfer(QC): 6 Toilet Transfer (QC): 6 Gait Mode of Locomotion: Walk Anticipated Mode of Locomotion: Walk Walk 10 feet (QC): 6 Walk 50 ft with 2 Turns(QC): 6 Walk 150 ft (QC): 6 Distance: 275' Gait Assistive Device: Walker 4 Wheeled Comments/Gait Description safe and functional with no deviation Balance Sitting Static: Normal Sitting Dynamic: Normal Standing Static: Normal Standing Dynamic: Normal Assessment/Needs Patient is currently at independent [facility] with all gross motor skills safely and does not require skilled PT intervention at this time. Rehab Potential: Fair PT Plan Treatment/Plan Treatment Plan: Discontinue PT, goals met Treatment Duration: Mar 05, 2023 Frequency: 1 time per week Estimated Hrs Per Day: .25 hour per day Patient and/or Family Agrees t: Yes Time Time In: 1035 Time Out: 1049 DATE: Mar 05, 2023 Total Billed Treatment Time: 14 Total Billed Treatment 1 visit [facility] 14 min ANTOLIN BRADFORD PT Mar 05, 2023 11:10
[2023-03-05] MEDS: NS IV 1000 ML 1,000 ML IV SCH (11:11)
[2023-03-05 11:18] VITALS: BP 139/68
--- NOTE | 2023-03-05 11:56 | Progress Note ---
Subjective Date Seen by a Provider: Mar 05, 2023 Time Seen by a Provider: 11:00 Subjective/Events-last exam doing much better. tolerating clears and having multiple BM's. pain controlled and ambulating in halls well. Objective Exam Vital Signs Date Time Temp Pulse Resp B/P (MAP) Pulse Ox O2 Delivery O2 Flow Rate FiO2 03/05/23 11:18 37.1 81 18 139/68 (91) 92 Room Air 03/05/23 07:57 37.0 96 18 89 Room Air 03/05/23 07:10 96 Room Air 03/05/23 04:00 36.8 71 20 136/65 (88) 90 Room Air 03/05/23 00:00 36.4 95 20 121/70 (87) 95 Room Air 03/04/23 20:00 Room Air 03/04/23 19:44 36.8 90 20 146/72 (96) 91 Room Air 03/04/23 17:30 Room Air 03/04/23 17:20 36.2 20 167/91 (116) 95 Room Air 03/04/23 17:15 OxyMask 3.00 03/04/23 17:10 24 159/83 (108) 96 OxyMask 3.00 03/04/23 17:00 OxyMask 4.00 03/04/23 17:00 12 164/85 (111) 100 OxyMask 4.00 03/04/23 16:50 12 151/82 (105) 100 OxyMask 8 03/04/23 16:44 36.3 20 169/83 (111) 95 OxyMask 8 03/04/23 16:44 OxyMask 8 03/04/23 16:00 36.6 83 20 178/87 (117) 90 Room Air I & O 03/05/23 06:59 Intake Total 2300 ml Output Total 200 ml Balance 2100 ml Capillary Refill : Less Than 3 Seconds General Appearance: No Apparent Distress HEENT: PERRL/EOMI Neck: Full Range of Motion Respiratory: Rhonci, Wheezing Cardiovascular: Regular Rate, Rhythm Gastrointestinal: normal bowel sounds, soft, tenderness Extremity: Normal Capillary Refill Neurologic/Psychiatric: Alert, Oriented x3 Skin: Normal Color Lymphatic: No Adenopathy Results Lab Laboratory Tests 03/04/23 18:02: Glucometer 178H 03/04/23 20:11: Glucometer 300H 03/04/23 21:17: Glucometer 300H 03/04/23 23:46: Glucometer 271H 03/05/23 05:10: White Blood Count 9.7, Red Blood Count 3.23L, Hemoglobin 9.1L, Hematocrit 29L, Mean Corpuscular Volume 91, Mean Corpuscular Hemoglobin 28, Mean Corpuscular Hemoglobin Concent 31L, Red Cell Distribution Width 14.2, Platelet Count 291, Mean Platelet Volume 11.4, Immature Granulocyte % (Auto) 1, Neutrophils (%) (Auto) 84H, Lymphocytes (%) (Auto) 10L, Monocytes (%) (Auto) 5, Eosinophils (%) (Auto) 0, Basophils (%) (Auto) 0, Neutrophils # (Auto) 8.2H, Lymphocytes # (Auto) 0.9L, Monocytes # (Auto) 0.5, Eosinophils # (Auto) 0.0, Basophils # (Auto) 0.0, Immature Granulocyte # (Auto) 0.1, Sodium Level 140, Potassium Level 4.2, Chloride Level 106, Carbon Dioxide Level 24, Anion Gap 10, Blood Urea Nitrogen 7, Creatinine 0.94, Estimat Glomerular Filtration Rate 66, BUN/Creatinine Ratio 7, Glucose Level 156H, Calcium Level 8.2L 03/05/23 11:14: Glucometer 157H Microbiology 03/03/23 MRSA Screen - Final, Complete MRSA not isolated 03/01/23 Urine Culture - Final, Complete NO GROWTH Assessment/Plan Assessment/Plan Assess & Plan/Chief Complaint s/p abd wall mesh explantation and primary incisional hernia repair. sbft shows no obstruction. having BM's. advance diet. home when kenroy diet. KAT SMITH MD Mar 05, 2023 11:56
--- NOTE | 2023-03-05 12:51 | Occ Therapy Progress Note ---
Therapy Progress Note OT order recieved, deb reports she is performing her ADLS modified independently and ambulation w/o assistance. PT has discharged services. Please discontinue OT, services not warranted at this time ROWENA DAWSON OT Mar 05, 2023 12:51
--- NOTE | 2023-03-05 12:59 | Diagnostic Imaging Report ---
Indication: Small bowel obstruction. Patient had hernia surgery one day earlier. Patient was administered 120 mL of gastric graphic contrast mixed with 120 mL of water and serial radiographs of the abdomen were obtained. Preliminary radiographs does show significant gaseous distention of a hollow viscus in the central abdomen which has the appearance of the stomach. This is similar to CT study from 4 days earlier. Patient does appear to have a staple line within the stomach on recent CT consistent with prior gastric surgery. Contrast does pass into the small bowel. Small bowel distention does appear to be significantly improved when compared with the CT study. Contrast does progress through the small bowel and appears to reach the colon at approximately 1 1/2 hours. No definite small bowel obstruction is seen at this time. There does appear to be a curvilinear opacities projected over the right groin. This could represent surgical sponge material. Uncertain if this overlies the patient. Clinical correlation is recommended. IMPRESSION: No evidence of small bowel obstruction. There is normal transit of contrast through the small bowel to the right colon. There does continue to be a fairly significantly gaseous distended hollow viscus in the central abdomen which may represent the stomach. Gauze material overlying the right groin. Clinical correlation is recommended. Dictated by: Dictated on workstation # [id number]
[2023-03-05] MEDS ORDERED: OXYC5TAB PO (13:43)
[2023-03-05 14:58] VITALS: BP 139/68
== END 2023-03-05 14:46 | disposition home or self-care (01) | DRG 354 ==
LOC: EDUNIT# 12:29 → ER 12:31 → 4TH 17:51
PROVIDERS: ADMIT Surgery; ATTEND Surgery
PROC: 0DB48ZX Excision of Esophagogastric Junction, Via Natural or Artificial Opening Endoscopic, Diagnostic (ICD-10-PCS; principal; 2023-03-01)
PROC: 0DB68ZX Excision of Stomach, Via Natural or Artificial Opening Endoscopic, Diagnostic (ICD-10-PCS; 2023-03-01)
PROC: 0WQF0ZZ Repair Abdominal Wall, Open Approach (ICD-10-PCS; 2023-03-04)
PROC: 0WPF0JZ Removal of Synthetic Substitute from Abdominal Wall, Open Approach (ICD-10-PCS; 2023-03-04)
DX: K43.0 Incisional hernia with obstruction, without gangrene (principal); M50.00 Cervical disc disorder with myelopathy, unspecified cervical region; N17.9 Acute kidney failure, unspecified; N39.0 Urinary tract infection, site not specified; Z68.41 Body mass index [BMI] 40.0-44.9, adult; Z79.4 Long term (current) use of insulin; Z79.899 Other long term (current) drug therapy; Z87.891 Personal history of nicotine dependence; Z98.84 Bariatric surgery status; I25.10 Atherosclerotic heart disease of native coronary artery without angina pectoris; I10 Essential (primary) hypertension; K21.9 Gastro-esophageal reflux disease without esophagitis; G89.29 Other chronic pain; M54.9 Dorsalgia, unspecified; H40.9 Unspecified glaucoma; Z92.21 Personal history of antineoplastic chemotherapy; Z92.3 Personal history of irradiation; Z85.89 Personal history of malignant neoplasm of other organs and systems; F41.9 Anxiety disorder, unspecified; E78.5 Hyperlipidemia, unspecified; E03.9 Hypothyroidism, unspecified; E66.01 Morbid (severe) obesity due to excess calories; C76.0 Malignant neoplasm of head, face and neck; D64.9 Anemia, unspecified; K21.00 Gastro-esophageal reflux disease with esophagitis, without bleeding; K29.70 Gastritis, unspecified, without bleeding
CPT/HCPCS: 36415; 74022; 74177; 74250; 80048; 80053; 81000; 82607; 82728; 82746; 82947; 83540; 83550; 83690; 85025; 87081; 87088

== ENCOUNTER 2023-03-08 08:07 | Emergency (ER) | payer MEDICARE, MEDICAID ==
[~2023-03-08] VITALS: Ht 167 cm; Wt 114.0 kg
[~2023-03-08 08:07] MED LIST changes: +APIX5TAB PO; +BUPR-105 PO; +CYCL5TAB PO; +DIPH25TA65 PO; +ERGO1250 PO; +FURO20TA4 PO; +HYDR-3820 PO; +LATA2.5D19 OU; +ONDA4TAB11 PO; +OXYC20TA3 PO; +OXYC5TAB PO; +lactinex PO
[2023-03-08] MEDS ORDERED: ONDANSETRON 4 MG/2 ML (SDV) Z0FRAN ONE (08:16)
[2023-03-08] MEDS ORDERED: RT-ALBUTEROL SULF 2.5 MG/3 ML PRE-MIX VIAL INH STA (08:26)
[2023-03-08] MEDS ORDERED: PROMETHAZINE INJ 25 MG/ML (PHENERGAN) AMP IVP ONE ×2 (08:30→11:30)
[2023-03-08] MEDS ORDERED: ONDANSETRON 4 MG/2 ML (SDV) Z0FRAN IVP ONE ×2 (08:30→16:30)
[2023-03-08] MEDS ORDERED: NS IV 500 ML 500 ML IV ONE (08:30)
[2023-03-08] MEDS ORDERED: fentaNYL INJ 100 MCG/2 ML AMP IVP ONE ×2 (08:30→10:30)
[2023-03-08] MEDS ORDERED: PANTOPRAZOLE 40 MG (PROTONIX) VIAL IV ONE (08:30)
[2023-03-08] MEDS ORDERED: SCOPOLAMINE 1.5 MG (TRANSDERM-SCOP) PATCH TD ONE (08:30)
[2023-03-08] MEDS ORDERED: NS IV 500 ML 500 ML ONE (08:32)
[2023-03-08 08:39] LABS: BASOPHILS % (AUTO) 0 % (0-10); EOSINOPHILS # (AUTO) 0.1 10^3/uL (0.0-0.3); EOSINOPHILS % (AUTO) 1 % (0-10); HEMATOCRIT 35 % (35-52); HEMOGLOBIN 10.7 g/dL (11.5-16.0); LYMPHOCYTES # (AUTO) 0.9 10^3/uL (1.0-4.0); LYMPHOCYTES % (AUTO) 7 % (12-44); MEAN CORPUSCULAR HEMOGLOBIN 29 pg (25-34); MEAN CORPUSCULAR HGB CONC 31 g/dL (32-36); MEAN CORPUSCULAR VOLUME 92 fL (80-99); MEAN PLATELET VOLUME 11.3 fL (9.0-12.2); MONOCYTES # (AUTO) 0.6 10^3/uL (0.0-1.0); MONOCYTES % (AUTO) 4 % (0-12); NEUTROPHILS # (AUTO) 11.2 10^3/uL (1.8-7.8); NEUTROPHILS % (AUTO) 87 % (42-75); PLATELET COUNT 324 10^3/uL (130-400); WHITE BLOOD COUNT 12.9 10^3/uL (4.3-11.0)
--- NOTE | 2023-03-08 08:41 | ED Abdominal Pain ---
General Chief Complaint: Abdominal/GI Problems Stated Complaint: NAUSEA | VOMITING Nursing Triage Note: pt presents to ed via ems from home with complaints of n/v x since yesteray. pt reports she has been unable to keep anything down. pt was discharged from via [facility] on Wednesday after having hernia sx by dr lafleur. pt reports her abdomen is more bloated than normal. Source of Information: Patient, EMS, Old Records Exam Limitations: No Limitations History of Present Illness Date Seen by Provider: Mar 08, 2023 Time Seen by Provider: 08:08 Initial Comments This 67-year-old woman presents to the emergency room via EMS with 2 days of nausea, vomiting, abdominal pain, and abdominal distention. She had been admitted to the hospital March 01 with a possible bowel obstruction. She had surgery by Dr. Lafleur on March 04 with revision of a abdominal wall hernia repair. She was discharged on March 05. She has taken the Zofran available to her at home without improvement in nausea and vomiting. Her abdomen is rather distended. She continues to heave even after emptying her stomach contents. She is afebrile. Abdomen is rather distended on exam. She is diabetic and EMS reports blood sugar of 236. Vital signs are relatively stable at this time. Wheezing is noted on exam, but patient denies history of COPD. Allergies and Home Medications Allergies Uncoded Allergies: TAPE (Allergy, Intermediate, 11/11/14) Patient Home Medication List Home Medication List Reviewed: Yes Alprazolam (Alprazolam) 1 Mg Tablet, 1 MG PO QID PRN for ANXIETY, (Reported) Entered as Reported by: BRIAN ARMAS on 06/08/17 1737 Apixaban (Eliquis) 5 Mg Tablet, 5 MG PO BID, (Reported) Entered as Reported by: MINI ANTHONY on 03/03/23 1507 Atorvastatin Calcium (Lipitor) 10 Mg Tablet, 10 MG PO HS, (Reported) Entered as Reported by: SHARON LAYNE on 07/14/17 1438 Brimonidine Tartrate (Alphagan P) 5 Ml Drops, 1 DROP OU TID, (Reported) Entered as Reported by: MINI ANTHONY on 06/19/19 1013 Bupropion HCl (Bupropion HCl Sr) 150 Mg Tablet.er, 150 MG PO BID, (Reported) Entered as Reported by: MINI ANTHONY on 03/03/23 150 Cyclobenzaprine HCl (Cyclobenzaprine HCl) 5 Mg Tablet, 5 MG PO BID PRN for MUSCLE SPASMS, (Reported) Entered as Reported by: MINI ANTHONY on 03/03/23 150 Diphenhydramine HCl (Benadryl Allergy) 25 Mg Tablet, 75 MG PO Q8H PRN for ALLERGY SYMPTOMS, (Reported) Entered as Reported by: MINI ANTHONY on 03/03/23 150 Ergocalciferol (Vitamin D2) (Vitamin D2) 1,250 Mcg (49725 Unit) Capsule, 1,250 MCG PO MON, (Reported) Entered as Reported by: MINI ANTHONY on 03/03/23 150 Furosemide (Furosemide) 20 Mg Tablet, 20-40 MG PO DAILY, (Reported) Entered as Reported by: MINI ANTHONY on 03/03/23 150 Gabapentin (Gabapentin) 600 Mg Tablet, 600 MG PO BID, (Reported) Entered as Reported by: BRIAN ARMAS on 06/08/17 173 Hydrocodone/Acetaminophen (Hydrocodone-Acetamin 10-325 mg) 10 Mg-325 Mg Tablet, 1 EACH PO Q6H PRN for PAIN-MODERATE (5-7), (Reported) Entered as Reported by: MINI ANTHONY on 03/03/23 150 Insulin Glargine,Hum.rec.anlog (Basaglar Kwikpen U-100) 100 Unit/Ml (3 Ml) Insuln.pen, 20-50 UNITS SC HS, (Reported) Entered as Reported by: MINI ANTHONY on 06/19/19 1013 L. Acidophilus/Bulgaricus (Floranex Tablet) 1 Million Cell Tablet, 1 EA PO BID, (Reported) Entered as Reported by: MINI ANTHONY on 03/03/23 150 Latanoprost (Xalatan) 0.005 % Drops, 1 DROP OU HS, (Reported) Entered as Reported by: MINI ANTHONY on 03/03/23 150 Levofloxacin (Levofloxacin) 250 Mg Tablet, 250 MG PO DAILY, (Reported) Entered as Reported by: MINI ANTHONY on 03/03/23 150 Levothyroxine Sodium (Levothyroxine Sodium) 25 Mcg Tablet, 25 MCG PO MO,TU,WE,TH,FR,SA, (Reported) Entered as Reported by: BRIAN ARMAS on 06/08/17 1737 Linaclotide (Linzess) 72 Mcg Capsule, 72 MCG PO DAILY, (Reported) Entered as Reported by: JOYCE FRANKLIN on 05/21/20 1131 Ondansetron (Ondansetron Odt) 4 Mg Tab.rapdis, 4 MG PO Q6H PRN for NAUSEA/VOMITING-1ST LINE, (Reported) Entered as Reported by: MINI ANTHONY on 03/03/23 1507 Oxycodone HCl (Oxycodone HCl) 10 Mg Tablet, 10-20 MG PO Q6H PRN for PAIN-SEVERE (8-10), (Reported) Entered as Reported by: MINI ANTHONY on 03/03/23 1507 Oxycodone HCl (Oxycodone HCl) 5 Mg Tablet, 5 MG PO Q4H PRN for PAIN Prescribed by: JONATHAN ESCALANTE on 03/05/23 1343 Pantoprazole Sodium (Pantoprazole Sodium) 40 Mg Tablet.dr, 40 MG PO DAILY, (Reported) Entered as Reported by: MINI ANTHONY on 03/03/23 1507 Sertraline HCl (Sertraline HCl) 50 Mg Tablet, 50 MG PO DAILY, (Reported) Entered as Reported by: SIENA BACON on 02/06/20 1209 Discontinued Medications Apixaban (Eliquis) 5 Mg Tablet, 5 MG PO BID Discontinued Reason: Duplicate Order Prescribed by: FREDDY WOOTEN on 03/02/23 1444 Bupropion HCl (Bupropion HCl Sr) 150 Mg Tablet.er, 150 MG PO BID, (Reported) Discontinued Reason: Duplicate Order Entered as Reported by: SIENA BACON on 05/24/18 1331 Ergocalciferol (Vitamin D2) (Vitamin D2) 1,250 Mcg (24300 Unit) Capsule, 1,250 MCG PO WEEK Discontinued Reason: Duplicate Order Prescribed by: FREDDY WOOTEN on 03/02/23 1444 Furosemide (Furosemide) 20 Mg Tablet, 20 MG PO DAILY Discontinued Reason: Duplicate Order Prescribed by: FREDDY WOOTEN on 03/02/23 1444 Hydrocodone/Acetaminophen (Hydrocodone-Acetamin 10-325 mg) 10 Mg-325 Mg Tablet, 1 EACH PO Q6H Discontinued Reason: Duplicate Order Prescribed by: FREDDY WOOTEN on 03/02/23 1445 Latanoprost (Latanoprost) 2.5 Ml Drops, 1 DROP OU HS, (Reported) Discontinued Reason: Duplicate Order Entered as Reported by: MINI ANTHONY on 06/19/19 1013 Oxycodone HCl (Oxycodone HCl) 20 Mg Tablet, 20 MG PO Q6H PRN for PAIN Discontinued Reason: No Longer Taking Prescribed by: FREDDY WOOTNE on 03/02/23 1444 Pantoprazole Sodium (Pantoprazole Sodium) 40 Mg Tablet.dr, 40 MG PO DAILY Discontinued Reason: Duplicate Order Prescribed by: AAKASH MONTIEL on 03/08/20 0947 [lactinex] , 1 MIU PO ACHS Discontinued Reason: Duplicate Order Prescribed by: FREDDY WOOTEN on 03/02/23 1444 Review of Systems Review of Systems Constitutional: no symptoms reported EENTM: No Symptoms Reported Respiratory: See HPI Cardiovascular: No Symptoms Reported Gastrointestinal: See HPI Genitourinary: No Symptoms Reported Musculoskeletal: no symptoms reported Skin: no symptoms reported Psychiatric/Neurological: No Symptoms Reported Endocrine: See HPI Hematologic/Lymphatic: No Symptoms Reported Past Hpdzfzi-Hogtdn-Fztaqp Hx Patient Social History Tobacco Use?: No Smoking Status: Former Smoker Substance use?: No Alcohol Use?: No Pt feels they are or have been: No Immunizations Up To Date Tetanus Booster (TDap): Unknown Seasonal Allergies Seasonal Allergies: Yes Past Medical History Surgery/Hospitalization HX: sx: hernia repair, cabg, appy, hyst pmh: htn Surgeries: Yes (MARCELLE-EN-Y GASTRIC BYPASS (2 SURG FOR INFECTION), BACK, SCC HEAD/NECK) Abdominal (Hernia, revision with mesh removal), Appendectomy (open), CABG, Eye Surgery (cataracts), Gallbladder, Hysterectomy, Vascular Surgery Respiratory: Yes (PENUMONIA WITH SEPTIC SHOCK 05/2017) Pneumonia Currently Using CPAP: No Currently Using BIPAP: No Cardiac: Yes Coronary Artery Disease, Hypertension, Peripheral Vascular Neurological: Yes Stroke Reproductive Disorders: No 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 Disorders: Denies 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 Sexually Transmitted Disease: No HIV/AIDS: No Genitourinary: Yes Renal Failure, UTI-Chronic Gastrointestinal: Yes (dysphagia) Gastroesophageal Reflux, Chronic Constipation Musculoskeletal: Yes (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, 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 IN SOFT TISSUE, L1-2 FX,) Arthritis (DJD), Back Injury, Chronic Back Pain, Fractures Endocrine: Yes (OBESITY) Diabetes, Insulin dep (Type II) HEENT: Yes ( GLASSES, DENTURES) Glaucoma Hearing Impairment: Hard of Hearing Cancer: Yes (NECK/TONSILLAR CANCER SCC) Did You Recieve Any Treatments: Yes What Type of Treatment Did You: Chemotherapy, Radiation, Surgical Intervention Psychosocial: Yes Anxiety Integumentary: Yes (CHRONIC LEFT LEG AND FOOT ULCERS ) Blood Disorders: No Adverse Reaction/Blood Tranf: No (HAS HAD BLOOD WITH REACTION) Family Medical History Diabetes mellitus G8 BROTHER FH: skin cancer 19 FATHER Hypertension Physical Exam Vital Signs Vital Signs - First Documented 03/08/23 03/08/23 08:11 19:18 Temp 36.9 Pulse 90 Resp 16 B/P (MAP) 159/109 (126) Pulse Ox 93 O2 Delivery Room Air O2 Flow Rate 2.00 Capillary Refill : Less Than 3 Seconds Height/Weight/BMI Height: 5'5.00" Weight: 280lbs. 0.0oz. [id number]; 40.00 BMI Method:Stated General Appearance: WD/WN, moderate distress HEENT: PERRL/EOMI, normal ENT inspection Neck: normal inspection Respiratory: no respiratory distress, no accessory muscle use; No crackles; wheezing Cardiovascular: regular rate, rhythm, no edema, no murmur Gastrointestinal: abnormal bowel sounds (decreased), distended (firm), tenderness (mild nearer incision), other (Surgical dressings in place, clean and dry) Extremities: no pedal edema, other (Chronic skin changes) Neurologic/Psychiatric: no motor/sensory deficits, alert, oriented x 3 Skin: normal color, warm/dry Focused Exam Lactate Level 03/08/23 08:15: Lactic Acid Level 1.13 Lactic Acid Level Laboratory Tests Test 03/08/23 08:15 Lactic Acid Level 1.13 MMOL/L (0.50-2.00) Progress/Results/Core Measures Results/Orders Lab Results Laboratory Tests Test 03/08/23 08:15 03/08/23 12:21 Range/Units White Blood Count 12.9 H 4.3-11.0 10^3/uL Red Blood Count 3.75 L 3.80-5.11 10^6/uL Hemoglobin 10.7 L 11.5-16.0 g/dL Hematocrit 35 35-52 % Mean Corpuscular Volume 92 80-99 fL Mean Corpuscular Hemoglobin 29 25-34 pg Mean Corpuscular Hemoglobin Concent 31 L 32-36 g/dL Red Cell Distribution Width 14.6 H 10.0-14.5 % Platelet Count 324 130-400 10^3/uL Mean Platelet Volume 11.3 9.0-12.2 fL Immature Granulocyte % (Auto) 1 % Neutrophils (%) (Auto) 87 H 42-75 % Lymphocytes (%) (Auto) 7 L 12-44 % Monocytes (%) (Auto) 4 0-12 % Eosinophils (%) (Auto) 1 0-10 % Basophils (%) (Auto) 0 0-10 % Neutrophils # (Auto) 11.2 H 1.8-7.8 10^3/uL Lymphocytes # (Auto) 0.9 L 1.0-4.0 10^3/uL Monocytes # (Auto) 0.6 0.0-1.0 10^3/uL Eosinophils # (Auto) 0.1 0.0-0.3 10^3/uL Basophils # (Auto) 0.0 0.0-0.1 10^3/uL Immature Granulocyte # (Auto) 0.1 0.0-0.1 10^3/uL Neutrophils % (Manual) 84 % Lymphocytes % (Manual) 9 % Monocytes % (Manual) 6 % Eosinophils % (Manual) 1 % Basophils % (Manual) 0 % Band Neutrophils 0 % Blood Morphology Comment NORMAL Prothrombin Time 13.7 12.2-14.7 SEC INR Comment 1.0 0.8-1.4 Activated Partial Thromboplast Time 36 H 24-35 SEC Sodium Level 138 135-145 MMOL/L Potassium Level 3.9 3.6-5.0 MMOL/L Chloride Level 100 98-107 MMOL/L Carbon Dioxide Level 28 21-32 MMOL/L Anion Gap 10 5-14 MMOL/L Blood Urea Nitrogen 17 7-18 MG/DL Creatinine 1.32 H 0.60-1.30 MG/DL Estimat Glomerular Filtration Rate 44 BUN/Creatinine Ratio 13 Glucose Level 232 H 70-105 MG/DL Lactic Acid Level 1.13 0.50-2.00 MMOL/L Calcium Level 8.5 8.5-10.1 MG/DL Corrected Calcium 8.9 8.5-10.1 MG/DL Magnesium Level 1.7 1.6-2.4 MG/DL Total Bilirubin 0.3 0.1-1.0 MG/DL Aspartate Amino Transf (AST/SGOT) 10 5-34 U/L Alanine Aminotransferase (ALT/SGPT) 6 0-55 U/L Alkaline Phosphatase 134 40-136 U/L C-Reactive Protein High Sensitivity 6.11 H 0.00-0.50 MG/DL Total Protein 7.4 6.4-8.2 GM/DL Albumin 3.5 3.2-4.5 GM/DL Lipase 74 8-78 U/L Urine Color YELLOW Urine Clarity CLEAR Urine pH 5.0 5-9 Urine Specific [place] 1.015 L 1.016-1.022 Urine Protein 1+ H NEGATIVE Urine Glucose (UA) TRACE H NEGATIVE Urine Ketones NEGATIVE NEGATIVE Urine Nitrite NEGATIVE NEGATIVE Urine Bilirubin NEGATIVE NEGATIVE Urine Urobilinogen 0.2 < = 1.0 MG/DL Urine Leukocyte Esterase NEGATIVE NEGATIVE Urine RBC (Auto) NEGATIVE NEGATIVE Urine RBC NONE /HPF Urine WBC NONE /HPF Urine Squamous Epithelial Cells 10-25 H /HPF Urine Crystals NONE /LPF Urine Bacteria NEGATIVE /HPF Urine Casts NONE /LPF Urine Mucus NEGATIVE /LPF Urine Culture Indicated NO Micro Results Microbiology 03/08/23 Blood Culture - Preliminary, Resulted No growth 03/08/23 Blood Culture - Preliminary, Resulted No growth My Orders Orders - EDDA PATEL MD Cbc With Automated Diff (03/08/23 08:16) Comprehensive Metabolic Panel (03/08/23 08:16) Hs C Reactive Protein (03/08/23 08:16) Lipase (03/08/23 08:16) Ua Culture If Indicated (03/08/23 08:16) Ed Iv/Invasive Line Start (03/08/23 08:16) Ondansetron Injection (Zofran Injectio (03/08/23 08:30) Pantoprazole Injection (Protonix Injecti (03/08/23 08:30) Ondansetron Injection (Zofran Injectio (03/08/23 08:16) Scopolamine Patch (Transderm-Scop Patch) (03/08/23 08:30) Promethazine Injection (Phenergan Injec (03/08/23 08:30) Fentanyl Inj (Sublimaze Injection) (03/08/23 08:30) Albuterol Pre-Mix Nebs (Rt) (Proventil (03/08/23 08:26) Svn Small Volume Nebulizer (03/08/23 08:26) Chest 1 View, Ap/Pa Only (03/08/23 08:27) Ns Iv 500 Ml (Sodium Chloride 0.9%) (03/08/23 08:30) Magnesium (03/08/23 08:29) Ns Iv 500 Ml (Sodium Chloride 0.9%) (03/08/23 08:32) Manual Differential (03/08/23 08:15) Ct Abdomen/Pelvis W (03/08/23 08:59) Iohexol Injection (Omnipaque 350 Mg/Ml 1 (03/08/23 09:15) Received Contrast (Hold Metformin- Contr (03/08/23 09:15) Ns (Ivpb) (Sodium Chloride 0.9% Ivpb Bag (03/08/23 09:15) Benzocaine Extension Tube (Hurricaine Ex (03/08/23 10:18) Fentanyl Inj (Sublimaze Injection) (03/08/23 10:30) Piperacillin Sodium/Tazobactam (Zosyn Vi (03/08/23 10:45) Blood Culture (03/08/23 10:41) Sputum Culture (03/08/23 10:41) Protime With Inr (03/08/23 10:41) Partial Thromboplastin Time (03/08/23 10:41) Vital Signs Adult Sepsis Patie Q15M (03/08/23 10:41) O2 (03/08/23 10:41) Remove Rings In Anticipation O (03/08/23 10:41) Lactic Acid Analyzer (03/08/23 10:41) Promethazine Injection (Phenergan Injec (03/08/23 11:30) Morphine Injection (Morphine Injection (03/08/23 13:30) Morphine Injection (Morphine Injection (03/08/23 16:00) Ondansetron Injection (Zofran Injectio (03/08/23 16:30) Morphine Injection (Morphine Injection (03/08/23 19:15) Morphine Injection (Morphine Injection (03/08/23 19:02) Medications Given in ED Vital Signs/I&O 03/08/23 03/08/23 03/08/23 08:11 09:05 19:18 Temp 36.9 Pulse 90 87 Resp 16 16 B/P (MAP) 159/109 (126) 165/88 Pulse Ox 93 91 96 O2 Delivery Room Air Room Air Nasal Cannula O2 Flow Rate 2.00 Blood Pressure Mean: 126 Progress Progress Note #1: Time: 08:44 Progress Note Patient was interviewed and examined. Report was received from EMS. Chart from prior visits was reviewed. Medical history in this encounter updated. Patient was treated with Zofran 8 mg IV without resolution of nausea. She is additionally being treated with Phenergan 12.5 mg in solution of a 500 mL normal saline bolus. Scopolamine patch has been applied. Labs are pending. CT will be obtained after review of labs. I discussed the situation with Dr. Lafleur, surgeon who performed her recent surgery. He does not believe that she will to lerate oral contrast and does not believe it is necessary to attempt it. He will be updated after review of CT scan. Fentanyl 50 mcg IV is being given for pain control. Albuterol nebulized treatment is being given for the wheezing. Progress Note #2: Time: 08:57 Progress Note Chest x-ray was viewed and interpreted by me. Interpretation is limited due to body habitus and portable technique. There appears to be infiltrate and/or atelectasis in the right mid lung and lower lung. Radiologist's report was reviewed as noted below. Labs were reviewed and interpreted in their entirety by me. CBC was notable for WBC elevation of 12.9. Anemia with hemoglobin of 10.7 was noted. CMP revealed renal insufficiency with creatinine of 1.32 and GFR of 44. Glucose was elevated at 232. CRP was mildly elevated at 6.11. Labs were otherwise grossly unremarkable. Urinalysis is pending. CT of the abdomen pelvis with contrast will be ordered. Progress Note #3: Time: 12:55 Progress Note Patient has multiple acute issues happening at this time. There is concern for possible right-sided pneumonia based on imaging and leukocytosis with a mildly elevated CRP. CT and chest x-ray suggested infiltrates and/or atelectasis in the right lower and midlung. Blood cultures and lactic acid have been obtained and antibiotic therapy was initiated with Zosyn. The CT scan was viewed by me. There was distention of the stomach remnant and bowel concerning for bowel obstruction. Radiologist's report was also reviewed as noted below. These findings were discussed with Dr. Lafleur, patient's general surgeon who performed the hernia repair last week. He is concerned that patient may be experiencing a stricture at the anastomosis of the Marcelle-en-Y or an internal hernia. He believes she may need surgical reduction and repair of the Petersons space. He is recommending transfer to higher level of care where these procedures may be performed. I contacted Dr. Luna, patient's primary care provider. They were able to determine from prior records that procedure was performed at the [facility] in [place], [place]. I am presently awaiting a call back to determine best course of action for transfer to an appropriate facility. Patient has required multiple doses of opioid analgesics and several doses of antiemetics. Disposition is pending response from the bariatric surgeon. Progress Note #4: Time: 13:52 Progress Note Patient has requested additional pain medication, and morphine was administered. I have contacted the [facility] again. It is reported that Dr. David Yan was [facility]'s surgeon. He has been paged and I am awaiting callback at this time. Progress Note #5: Time: 18:44 Progress Note Eventually was able to discuss the case with Dr. Yan. There was discrepancy or difference in opinion regarding approach to management of this case between the surgeons. Ultimately, the surgery team at [facility], with whom I had requested consultation earlier in the day at Dr. Lafleur's request, reviewed CT imaging and felt it was best for the patient to be transferred to [facility] for surgery tonight. There was concern for internal hernia that may require urgent surgery. Transfer was graciously accepted by Dr. Samaniego, surgeon at [facility]. He recommended placing a shallow NG tube for decompression to hopefully resolve the nausea and vomiting. Nursing staff was advised to place a shallow NG tube. Patient continued to be treated with Zofran and Phenergan for nausea and vomiting and morphine for pain. Much time and effort was required in consulting the 3 surgeons involved as well as Dr. Marx, hospitalist. Disposition was initially for admission. That was changed to transfer after review of CT report by Dr. Lafleur. When transfer was declined by Dr. Yan, disposition was changed back to admission in [place]. After the surgery team at [facility] was able to review films, disposition was changed back to transfer to [facility]. An exhaustive amount of time and energy was put into consultations with these physicians and coordination of the transfer. Approximately 90 minutes was consumed with these tasks. Diagnostic Imaging Diagonstic Imaging: Xray Plain Films/CT/US/NM/MRI: chest Comments NAME: [facility] REC#: [id number] PT STATUS: REG ER : 1955 PHYSICIAN: EDDA PATEL MD ADMIT DATE: 03/08/23/ER Draft Date of Exam:03/08/23 CHEST 1 VIEW, AP/PA ONLY INDICATION: Wheezing and possible aspiration. TECHNIQUE: A single AP view of the chest was obtained. COMPARISON: 06/18/2019. FINDINGS: The overall heart size and pulmonary vascularity are within normal limits. There is mild increased density in the right perihilar region which may represent atelectasis or pneumonitis. There is no lobar consolidation. No pneumothorax is seen. There is irregularity of the partially included proximal right humerus which may represent a fracture deformity of indeterminate age. IMPRESSION: Mild right perihilar atelectasis and/or pneumonitis without other evidence of acute abnormality in the chest. Dictated on workstation # [id number] Dict: 03/08/23 0849 Trans: 03/08/23 0852 [id number] Interpreted by: CHAR GARZA MD Diagonstic Imaging: CT Plain Films/CT/US/NM/MRI: abdomen, pelvis Comments NAME: [facility] REC#: [id number] PT STATUS: REG ER : 1955 PHYSICIAN: EDDA PATEL MD ADMIT DATE: 03/08/23/ER Draft Date of Exam:03/08/23 CT ABDOMEN/PELVIS W PROCEDURE: CT abdomen and pelvis with contrast. TECHNIQUE: Multiple contiguous axial images were obtained through the abdomen and pelvis after administration of intravenous contrast. Auto Exposure Controls were utilized during the CT exam to meet ALARA standards for radiation dose reduction. All CT scans use one or more of the following dose optimizing techniques: automated exposure control, MA and/or KvP adjustment based on patient size and exam type or iterative reconstruction. INDICATION: Abdominal pain and abdominal distention. Patient had recent surgery. COMPARISON: Correlation is made with the recent CT of the abdomen and pelvis from 1 week earlier. FINDINGS: Imaging through the lung bases does show some patchy airspace infiltrate in the right lower lobe, consistent with pneumonia. There is contrast within the colon from the recent small bowel study. There continues to be markedly distended and fluid-filled stomach and small bowel loops. There appears to be transition distally and findings remain suggestive of at least a partial small bowel obstruction. There are postop changes in the midline anterior abdominal wall. There is a small amount of subcutaneous gas and minimal fluid at the level of the umbilicus. A probable post operative seroma in the midline anterior abdominal wall is noted. The liver is unremarkable. The gallbladder is surgically absent. The pancreas, spleen, adrenal glands, and kidneys are stable. The aorta is nonaneurysmal. There is no free fluid in the abdomen or pelvis. The bladder is decompressed. The uterus is surgically absent. IMPRESSION: Postop changes. There is significant fluid-filled distention to the stomach and small bowel loops with transition distally. The overall pattern remains suggestive of at least a partial small bowel obstruction. No intra-abdominal abscess or fluid collection is seen. There are post surgical changes in the anterior abdominal wall. Dictated on workstation # [id number] Dict: 03/08/23 0948 Trans: 03/08/23 0957 [id number] Interpreted by: LINUS ODONNELL MD Departure Impression Primary Impression: Small bowel obstruction Additional Impressions: Pneumonia Qualified Codes: J18.9 - Pneumonia, unspecified organism Nausea & vomiting Qualified Codes: R11.2 - Nausea with vomiting, unspecified History of Marcelle-en-Y gastric bypass Disposition: XFER SHT-TRM HOSP Condition: Improved Transfer Transfer Reason: Exceeds level of care Time Spoke to Accepting Phy: 16:20 Transfer Progress Notes Transfer accepted by Dr. Samaniego at [facility]. Transfer Time: 19:18 Transfer Facility: [facility] Method of Transfer: Air Departure-Patient Inst. Referrals: MARIE LUNA DO (PCP/Family) Primary Care Physician Copy Copies To 1: MARIE LUNA JOSHUA T MD Mar 08, 2023 08:41
[2023-03-08 08:44] LABS: ALBUMIN 3.5 GM/DL (3.2-4.5); POTASSIUM 3.9 MMOL/L (3.6-5.0)
[2023-03-08 08:45] LABS: CALCIUM 8.5 MG/DL (8.5-10.1)
[2023-03-08 08:46] LABS: TOTAL PROTEIN 7.4 GM/DL (6.4-8.2)
[2023-03-08 08:48] LABS: BILIRUBIN,TOTAL 0.3 MG/DL (0.1-1.0)
[2023-03-08 08:50] LABS: CREATININE SERUM 1.32 MG/DL (0.60-1.30)
--- NOTE | 2023-03-08 08:52 | Diagnostic Imaging Report ---
INDICATION: Wheezing and possible aspiration. TECHNIQUE: A single AP view of the chest was obtained. COMPARISON: 06/18/2019. FINDINGS: The overall heart size and pulmonary vascularity are within normal limits. There is mild increased density in the right perihilar region which may represent atelectasis or pneumonitis. There is no lobar consolidation. No pneumothorax is seen. There is irregularity of the partially included proximal right humerus which may represent a fracture deformity of indeterminate age. IMPRESSION: Mild right perihilar atelectasis and/or pneumonitis without other evidence of acute abnormality in the chest. Dictated by: Dictated on workstation # [id number]
[2023-03-08 09:00] LABS: BAND NEUTROPHILS 0 %; BASOPHILS % (MANUAL) 0 %; EOSINOPHILS % (MANUAL) 1 %; LYMPHOCYTES % (MANUAL) 9 %; MONOCYTES % (MANUAL) 6 %; NEUTROPHILS % (MANUAL) 84 %
[2023-03-08 09:01] LABS: RBC MORPH NORMAL
[2023-03-08] MEDS ORDERED: HOLD METFORMIN - RECEIVED CONTRAST 20 ML VIAL IV SCH (09:15)
[2023-03-08] MEDS ORDERED: NS 100 ML (IVPB) BAG IV ONE (09:15)
[2023-03-08] MEDS ORDERED: IOHEXOL 350 MG/ML 100 ML (OMNIPAQUE 350) VIAL IV ONE (09:15)
--- NOTE | 2023-03-08 09:58 | Diagnostic Imaging Report ---
PROCEDURE: CT abdomen and pelvis with contrast. TECHNIQUE: Multiple contiguous axial images were obtained through the abdomen and pelvis after administration of intravenous contrast. Auto Exposure Controls were utilized during the CT exam to meet ALARA standards for radiation dose reduction. All CT scans use one or more of the following dose optimizing techniques: automated exposure control, MA and/or KvP adjustment based on patient size and exam type or iterative reconstruction. INDICATION: Abdominal pain and abdominal distention. Patient had recent surgery. COMPARISON: Correlation is made with the recent CT of the abdomen and pelvis from 1 week earlier. FINDINGS: Imaging through the lung bases does show some patchy airspace infiltrate in the right lower lobe, consistent with pneumonia. There is contrast within the colon from the recent small bowel study. There continues to be markedly distended and fluid-filled stomach and small bowel loops. There appears to be transition distally and findings remain suggestive of at least a partial small bowel obstruction. There are postop changes in the midline anterior abdominal wall. There is a small amount of subcutaneous gas and minimal fluid at the level of the umbilicus. A probable post operative seroma in the midline anterior abdominal wall is noted. The liver is unremarkable. The gallbladder is surgically absent. The pancreas, spleen, adrenal glands, and kidneys are stable. The aorta is nonaneurysmal. There is no free fluid in the abdomen or pelvis. The bladder is decompressed. The uterus is surgically absent. IMPRESSION: Postop changes. There is significant fluid-filled distention to the stomach and small bowel loops with transition distally. The overall pattern remains suggestive of at least a partial small bowel obstruction. No intra-abdominal abscess or fluid collection is seen. There are post surgical changes in the anterior abdominal wall. Dictated by: Dictated on workstation # [id number]
[2023-03-08] MEDS ORDERED: HURRICAINE EXT TUBE (BENZOCAINE) ONE (10:18)
[2023-03-08] MEDS ORDERED: PIPERACILLIN SODIUM/TAZOBACTAM 4.5 GM in NS (IVPB) 100 ML IV ONE (10:45)
[2023-03-08 10:54] LABS: PROTHROMBIN TIME PATIENT 13.7 SEC (12.2-14.7)
[2023-03-08 12:28] LABS: BILIRUBIN,URINE NEGATIVE (NEGATIVE); CLARITY,URINE CLEAR; COLOR,URINE YELLOW; GLUCOSE, URINE (UA) TRACE (NEGATIVE); KETONES,URINE NEGATIVE (NEGATIVE); LEUKOCYTE ESTERASE ,URINE NEGATIVE (NEGATIVE); NITRITE,URINE NEGATIVE (NEGATIVE); PROTEIN,URINE 1+ (NEGATIVE)
[2023-03-08 12:36] LABS: BACTERIA,URINE NEGATIVE /HPF
[2023-03-08] MEDS ORDERED: morphine INJ 4 MG/ML 1 ML (VIAL/SYRINGE) IVP ONE ×3 (13:30→19:15)
[2023-03-08] MEDS ORDERED: morphine INJ 4 MG/ML 1 ML (VIAL/SYRINGE) ONE (19:02)
[2023-03-08 19:18] VITALS: BP 165/88
== END 2023-03-08 19:18 | disposition short-term general hospital (02) ==
LOC: EDUNIT# 08:07 → ER 08:08
DX: J18.9 Pneumonia, unspecified organism (principal); K56.609 Unspecified intestinal obstruction, unspecified as to partial versus complete obstruction; E11.9 Type 2 diabetes mellitus without complications; N28.9 Disorder of kidney and ureter, unspecified; D64.9 Anemia, unspecified; E66.9 Obesity, unspecified; D72.829 Elevated white blood cell count, unspecified; R79.82 Elevated C-reactive protein (CRP); Z87.891 Personal history of nicotine dependence; Z90.49 Acquired absence of other specified parts of digestive tract; Z98.890 Other specified postprocedural states; Z98.84 Bariatric surgery status; Z68.41 Body mass index [BMI] 40.0-44.9, adult; Z79.4 Long term (current) use of insulin
CPT/HCPCS: 36415; 71045; 74177; 80053; 81000; 83605; 83690; 83735; 85007; 85027; 85610; 85730; 86141; 87040; 94640

== ENCOUNTER 2023-03-31 18:03 | Emergency (ER) | payer MEDICARE, MEDICAID ==
[2023-03-31] MEDS ORDERED: morphine INJ 10 MG/ML 1ML (SYR OR VIAL) ONE (19:14)
[2023-03-31] MEDS ORDERED: RX-CEFDINIR 125 MG/5 ML 60 ML PO STA (19:45)
[2023-03-31] MEDS ORDERED: CEFD125S3 PO (19:53)
--- NOTE | 2023-03-31 19:53 | ED General ---
General Chief Complaint: Catheter/Drain/Tube Problems Stated Complaint: FEEDING TUBE FELL OUT Nursing Triage Note: PT TO RM 3 BY WC WITH C/O FEEDING TUBE FALLING OUT LAST NIGHT. PT HAS FEEDING TUBE FROM SBO SURGERY AT 2 WEEKS AGO Source of Information: Patient Exam Limitations: No Limitations History of Present Illness Date Seen by Provider: Mar 31, 2023 Time Seen by Provider: 19:14 Initial Comments This 67-year-old woman presents to the emergency room with dislodging of her PEG tube. She had surgery at [facility] for a complicated small bowel obstruction after a long-term Marcelle-en-Y bariatric surgery. Surgery was about 2 weeks ago. She presents today to have the PEG tube replaced. Dr. Sánchez, daytime ER physician was notified of the case prior to patient's arrival. Dr. Lafleur was notified the patient would be arriving and consult was requested by Dr. Sánchez. Since the PEG tube is fresh, Dr. Sánchez discerned the replacement should be performed by Dr. Lafleur, general surgeon cooler conveyor loader. Patient has had no other complications with the tube. She is still taking oral but keeps the PEG tube in for a precaution at the direction of her primary surgeon. It was noted on my exam that patient also has blanching erythema of the right abdominal wall, not associated with her incision or PEG. She reports significant problems with intertrigo which has been recently treated with nystatin powder. She also has a UTI which was recently treated with nitrofurantoin. She states the cellulitis has not been yet addressed. She is afebrile and states this cellulitis has been present since approximately discharge from the hospital and has not worsened significantly. She is concerned because she has a history of problems with cellulitis. Allergies and Home Medications Allergies Uncoded Allergies: TAPE (Allergy, Intermediate, 11/11/14) Patient Home Medication List Home Medication List Reviewed: Yes Alprazolam (Alprazolam) 1 Mg Tablet, 1 MG PO QID PRN for ANXIETY, (Reported) Entered as Reported by: BRIAN ARMAS on 06/08/17 1737 Apixaban (Eliquis) 5 Mg Tablet, 5 MG PO BID, (Reported) Entered as Reported by: MINI ANTHONY on 03/03/23 1507 Atorvastatin Calcium (Lipitor) 10 Mg Tablet, 10 MG PO HS, (Reported) Entered as Reported by: SHARON LAYNE on 07/14/17 1438 Brimonidine Tartrate (Alphagan P) 5 Ml Drops, 1 DROP OU TID, (Reported) Entered as Reported by: MINI ANTHONY on 06/19/19 1013 Bupropion HCl (Bupropion HCl Sr) 150 Mg Tablet.er, 150 MG PO BID, (Reported) Entered as Reported by: MINI ANTHONY on 03/03/23 1507 Cefdinir (Cefdinir) 125 Mg/5 Ml Susp.recon, 20 ML PO BID Prescribed by: EDDA TREVINO on 03/31/231952 Cyclobenzaprine HCl (Cyclobenzaprine HCl) 5 Mg Tablet, 5 MG PO BID PRN for MUSCLE SPASMS, (Reported) Entered as Reported by: MINI ANTHONY on 03/03/23 150 Diphenhydramine HCl (Benadryl Allergy) 25 Mg Tablet, 75 MG PO Q8H PRN for ALLERGY SYMPTOMS, (Reported) Entered as Reported by: MINI ANTHONY on 03/03/23 1507 Ergocalciferol (Vitamin D2) (Vitamin D2) 1,250 Mcg (60448 Unit) Capsule, 1,250 MCG PO MON, (Reported) Entered as Reported by: MINI ANTHONY on 03/03/23 1507 Furosemide (Furosemide) 20 Mg Tablet, 20-40 MG PO DAILY, (Reported) Entered as Reported by: MINI ANTHONY on 03/03/23 1507 Gabapentin (Gabapentin) 600 Mg Tablet, 600 MG PO BID, (Reported) Entered as Reported by: BRIAN ARMAS on 06/08/17 1737 Hydrocodone/Acetaminophen (Hydrocodone-Acetamin 10-325 mg) 10 Mg-325 Mg Tablet, 1 EACH PO Q6H PRN for PAIN-MODERATE (5-7), (Reported) Entered as Reported by: MINI ANTHONY on 03/03/23 1507 Insulin Glargine,Hum.rec.anlog (Basaglar Kwikpen U-100) 100 Unit/Ml (3 Ml) Insuln.pen, 20-50 UNITS SC HS, (Reported) Entered as Reported by: MINI ANTHONY on 06/19/19 1013 L. Acidophilus/Bulgaricus (Floranex Tablet) 1 Million Cell Tablet, 1 EA PO BID, (Reported) Entered as Reported by: MINI ANTHONY on 03/03/23 1507 Latanoprost (Xalatan) 0.005 % Drops, 1 DROP OU HS, (Reported) Entered as Reported by: MINI ANTHONY on 03/03/23 150 Levofloxacin (Levofloxacin) 250 Mg Tablet, 250 MG PO DAILY, (Reported) Entered as Reported by: MINI ANTHONY on 03/03/23 150 Levothyroxine Sodium (Levothyroxine Sodium) 25 Mcg Tablet, 25 MCG PO MO,TU,WE,TH,FR,SA, (Reported) Entered as Reported by: BRIAN ARMAS on 06/08/17 1737 Linaclotide (Linzess) 72 Mcg Capsule, 72 MCG PO DAILY, (Reported) Entered as Reported by: JOYCE FRANKLIN on 05/21/20 1131 Ondansetron (Ondansetron Odt) 4 Mg Tab.rapdis, 4 MG PO Q6H PRN for NAUSEA/VO MITING-1ST LINE, (Reported) Entered as Reported by: MINI ANTHONY on 03/03/23 150 Oxycodone HCl (Oxycodone HCl) 10 Mg Tablet, 10-20 MG PO Q6H PRN for PAIN-SEVERE (8-10), (Reported) Entered as Reported by: MINI ANTHONY on 03/03/23 150 Oxycodone HCl (Oxycodone HCl) 5 Mg Tablet, 5 MG PO Q4H PRN for PAIN Prescribed by: JONATHAN ESCALANTE on 03/05/23 1343 Pantoprazole Sodium (Pantoprazole Sodium) 40 Mg Tablet.dr, 40 MG PO DAILY, (Reported) Entered as Reported by: MINI ANTHONY on 03/03/23 150 Sertraline HCl (Sertraline HCl) 50 Mg Tablet, 50 MG PO DAILY, (Reported) Entered as Reported by: SIENA BACON on 02/06/20 1209 Review of Systems Review of Systems Constitutional: no symptoms reported EENTM: no symptoms reported Respiratory: no symptoms reported Cardiovascular: no symptoms reported Gastrointestinal: see HPI Genitourinary: no symptoms reported Musculoskeletal: no symptoms reported Skin: see HPI Psychiatric/Neurological: No Symptoms Reported Hematologic/Lymphatic: No Symptoms Reported Past Bktspzm-[id number]-Ljptpf Hx Patient Social History Tobacco Use?: No Use of E-Cig and/or Vaping dev: No Substance use?: No Alcohol Use?: No Pt feels they are or have been: No Immunizations Up To Date Tetanus Booster (TDap): Unknown Seasonal Allergies Seasonal Allergies: Yes Past Medical History Surgery/Hospitalization HX: sx: hernia repair, cabg, appy, hyst pmh: htn Surgeries: Yes (MARCELLE-EN-Y GASTRIC BYPASS (2 SURG FOR INFECTION), BACK, SCC HEAD/NECK) Abdominal (Small bowel obstruction, PEG), Appendectomy, CABG, Eye Surgery, Gallbladder, Hysterectomy, Vascular Surgery Respiratory: Yes (PENUMONIA WITH SEPTIC SHOCK 05/2017) Pneumonia Currently Using CPAP: No Currently Using BIPAP: No Cardiac: Yes Coronary Artery Disease, Hypertension, Peripheral Vascular Neurological: Yes Stroke Reproductive Disorders: No 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 Disorders: 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 Sexually Transmitted Disease: No HIV/AIDS: No Genitourinary: Yes Renal Failure, UTI-Chronic Gastrointestinal: Yes (dysphagia) Gastroesophageal Reflux, Chronic Constipation Musculoskeletal: Yes (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, 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 IN SOFT TISSUE, L1-2 FX,) Arthritis, Back Injury, Chronic Back Pain, Fractures Endocrine: Yes (OBESITY) Diabetes, Insulin dep HEENT: Yes ( GLASSES, DENTURES) Glaucoma Hearing Impairment: Hard of Hearing Cancer: Yes (NECK/TONSILLAR CANCER SCC) Did You Recieve Any Treatments: Yes What Type of Treatment Did You: Chemotherapy, Radiation, Surgical Intervention Psychosocial: Yes Anxiety Integumentary: Yes (CHRONIC LEFT LEG AND FOOT ULCERS ) Blood Disorders: No Adverse Reaction/Blood Tranf: No (HAS HAD BLOOD WITH REACTION) Family Medical History Diabetes mellitus G8 BROTHER FH: skin cancer 19 FATHER Hypertension Physical Exam Vital Signs Vital Signs - First Documented 03/31/23 18:50 Temp 36.2 Pulse 82 Resp 20 B/P (MAP) 127/80 (96) Pulse Ox 95 O2 Delivery Room Air Capillary Refill : Height, Weight, BMI Height: 5'5.00" Weight: 280lbs. 0.0oz. 127.363097bl; 40.00 BMI Method:Stated General Appearance: No Apparent Distress, WD/WN HEENT: PERRL/EOMI, Normal ENT Inspection Respiratory: Lungs Clear, Normal Breath Sounds, No Accessory Muscle Use Cardiovascular: Regular Rate, Rhythm, No Murmur Gastrointestinal: Non Tender, Soft, Other (PEG tube in place as replaced by Dr. Lafleur. Incisional scar clean, dry, and intact without any inflammatory changes or drainage) Extremity: Swelling, Other (Chronic skin changes around the ankles) Neurologic/Psychiatric: Alert, Oriented x3, No Motor/Sensory Deficits, Normal Mood/Affect Skin: Normal Color, Warm/Dry Progress/Results/Core Measures Suspected Sepsis SIRS Temperature: Pulse: 82 Respiratory Rate: 20 Blood Pressure 127 /80 Mean: 96 Results/Orders My Orders Orders - EDDA PATEL MD Morphine Injection (Morphine Injection (03/31/23 19:14) Rx-Cefdinir Oral Suspension (Rx-Omnicef (03/31/23 19:45) Medications Given in ED Current Medications Medications Dose Ordered Sig/Judi Route Start Time Stop Time Status Last Admin Dose Admin Morphine Sulfate 10 mg STK-MED ONCE .ROUTE 03/31/23 19:14 03/31/23 19:18 DC 03/31/23 19:26 5 MG Vital Signs/I&O 03/31/23 03/31/23 18:50 20:10 Temp 36.2 36.2 Pulse 82 80 Resp 20 20 B/P (MAP) 127/80 (96) 104/70 Pulse Ox 95 97 O2 Delivery Room Air Room Air Capillary Refill : Blood Pressure Mean: 96 Progress Note : Progress Note There was a delay in rooming patient due to nursing availability due to multiple critically ill patients and multiple ambulances arriving. My direct care of the patient began when a verbal order was given for morphine IM at [address] Lafleur. I did alert Dr. Lafleur of the patient's arrival at 1823, and he presented to the ER to replace the PEG. I was able to personally interview and examine the patient at 1937. PEG tube has been replaced by Dr. Lafleur at that time. I noted the cellulitis and began treatment with cefdinir. Patient requested liquid preparation due to difficulty swallowing. Patient appreciated the care and was discharged with PEG tube intact. See discharge instructions for further discussion. Departure Impression Primary Impression: Feeding tube dysfunction Qualified Codes: T85.598A - Other mechanical complication of other gastrointestinal prosthetic devices, implants and grafts, initial encounter Additional Impression: Cellulitis of abdominal wall Disposition: HOME, SELF-CARE Condition: Improved Departure-Patient Inst. Decision time for Depature: 19:49 Referrals: MARIE LUNA DO (PCP/Family) Primary Care Physician Patient Instructions: Cellulitis (Skin Infection), Adult ED Add. Discharge Instructions: Continue postoperative instructions as provided by [facility]. So follow instructions provided by Dr. Lafleur. Continue using your nystatin prescribed for yeast infection. Keep your skin is clean and dry as possible. You may put dry clean cloth in the folds of your skin to help absorb moisture and replace often. You appear to have cellulitis of the right abdominal wall. Please use cefdinir as prescribed and follow-up with Dr. Luna within the next week to reevaluate. Take pictures of the area daily to monitor progress. Return to the emergency room if you have worsening symptoms. All discharge instructions reviewed with patient and/or family. Voiced understanding. Scripts Cefdinir (Cefdinir) 125 Mg/5 Ml Susp.recon 20 ML PO BID, #280 ML 0 Refills By mouth or PEG Prov: EDDA PATEL MD 03/31/23 Copy Copies To 1: MARIE LUNA DO Copies To 2: KAT LAFLEUR MD, JOSHUA T MD Mar 31, 2023 19:53
[2023-03-31 20:10] VITALS: BP 104/70
--- NOTE | 2023-03-31 20:28 | CONSULTATION REPORT ---
DATE OF SERVICE: 03/31/2023 ATTENDING PRIMARY CARE PHYSICIAN: Huber Ayoub DO HISTORY OF PRESENT ILLNESS: The patient is a 67-year-old female who was initially sent to the emergency department by her primary care physician due to abdominal distention. She was admitted on 03/01/2023. She had reported one week previous, she had developed nausea and vomiting, which had lasted 1 day and then she did improve over time. She then states developing recurrent abdominal distention as well as mild crampy abdominal pain and was seen at [facility] where a CT scan was performed, which did show a possible partial small bowel obstruction. At the time, her vital signs as well as lab work were stable and normal and she was having some bowel function. She was instructed to proceed with bowel rest with a clear liquid diet. She was also found to have urinary tract infection and was started on oral antibiotics. The patient states that the abdominal distention persisted and she did develop nausea and vomiting. She is status post laparoscopic Eliel-en-Y gastric bypass in [place] in 2017. Approximately 2 weeks after the surgery, she did develop a wound site infection requiring incision and drainage and debridement and wound VAC placement. A CT scan was performed, which did show dilatation of the gastric remnant along with the biliopancreatic limb, which may have just been an incidental finding or related to an ileus. On that admission, she underwent an EGD on 03/03/2023 and she was found to have reflux esophagitis between [place] grade B and C as well as moderate gastritis of the gastric pouch, and normal afferent and efferent limbs with no gastrojejunal strictures. The patient also did have an incarcerated hernia and this was explored in an open manner and she was found to have a recurrent incarcerated hernia; however, this encompassed a foreign body as well as a previous mesh. Once this was explanted, there was another underlay mesh, which was intact and no intraperitoneal contents protruding through. The patient did well after surgery and was able to tolerate a diet and was having bowel function and was discharged home. She returned to the emergency department on 03/08/2023 with recurrent abdominal pain and distention. A CT scan was performed, which did show fluid-filled distention of the stomach and small bowel loops with a transition distally, suggestive of again at least a partial small bowel obstruction. Due to these findings as well as a previous workup, we felt that there was the possibility of an internal hernia versus a jejunojejunal stricture. Due to this finding, we felt that it was more effective if she was sent back to her original surgeon or another surgeon that does deal with complications related to Eliel-en-Y gastric bypass and this was facilitated through [facility]. She states that she was transferred that day and underwent surgery and was found to have an area of what sounds to be an internal herniation. This was done in an open manner and a gastrostomy tube was also placed in the case of inadequate alimentation. She states that when she went home, she was able to take in adequate amounts of liquids and solids orally without the use of the gastrostomy tube. She states that she went for an outpatient office visit to remove the al as well as further checkup and did well; however, once she got home, she states that the gastrostomy tube got caught on her clothing and inadvertently was dislodged completely out. This occurred last night. Since that time, there has been a copious amount of bilious drainage coming from the gastrostomy tube site. 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 PAST SURGICAL HISTORY: Laparoscopic Eliel-en-Y gastric bypass; 17 incision, drainage and debridement of incision site; open appendectomy; total hysterectomy; laparoscopic cholecystectomy and abdominal wall incisional hernia repair; aortogram with bilateral runoff; bilateral cataract surgery; neck surgery. ALLERGIES: SOME FORMS OF TAPE. MEDICATIONS: Alprazolam 1 mg q.i.d. p.r.n., amlodipine 5 mg daily, atorvastatin 10 mg daily, brimonidine eye drops t.i.d., bupropion 150 mg b.i.d., cyclobenzaprine 10 mg t.i.d., gabapentin 600 mg b.i.d., glargine insulin sliding scale, latanoprost eye drops daily, levothyroxine 25 mcg daily, lisinopril 40 mg daily, Zofran p.r.n., Protonix 40 mg daily, sertraline 50 mg daily, temazepam 15 mg daily. SOCIAL HISTORY: Previously smoked, negative alcohol. FAMILY HISTORY: Brother - diabetes. VITAL SIGNS: Temperature 36.2, blood pressure 127/80, pulse 82, respirations 20, pulse ox 95% on room air. REVIEW OF SYSTEMS: Well-nourished female, currently in no acute distress. She is not experiencing any shortness of breath or difficulty breathing. No chest pain, palpitations, diaphoresis. No nausea, vomiting with a normal bowel functioning. Along the previous gastrostomy entry site. There is a significant amount of bilious drainage. There is no redness or erythema or any fluctuance to indicate any abscess. No fever, chills, no recent inadvertent weight loss. All other review of systems negative. PHYSICAL EXAMINATION: CHEST: Scattered rales and rhonchi bilaterally. HEART: Regular. No murmurs. EXTREMITIES: +2/3 bilateral lower extremity edema. Negative Homans sign. HEENT: No scleral icterus. No cervical lymphadenopathy. ABDOMEN: Soft, nondistended. There is a large laparotomy incision, which is intact with no surrounding redness or erythema, no fluctuance. The previous gastrostomy tube site is intact with no surrounding redness or erythema and there is a significant amount of bilious drainage indicating that the tract is still open. SKIN: Warm, dry. ASSESSMENT AND PLAN: A 67-year-old female with a dislodged gastrostomy tube in the gastric pouch, who is status post Eliel-en-Y gastric bypass and recent surgery encompassing what sounds to be repair of internal herniation as well as possible revision of the jejunojejunostomy. We will proceed with percutaneious replacement of the gastrostomy tube, which appears likely feasible, due to the finding of the tract still being patent with bilious drainage and the tract well formed and epithelialized. Job ID: [id number] DocumentID: [id number] Dictated Date: 03/31/2023 19:43:12 [employer] Date: 03/31/2023 20:27:00 Dictated By: KAT SMITH MD [facility]
--- NOTE | 2023-03-31 23:00 | OPERATIVE REPORT ---
DATE OF SERVICE: 03/31/2023 ATTENDING PRIMARY CARE PHYSICIAN: Huber Ayoub DO PREOPERATIVE DIAGNOSIS: Dislodged gastrostomy tube in the gastric pouch. POSTOPERATIVE DIAGNOSIS: Dislodged gastrostomy tube in the gastric pouch. PROCEDURE: Replacement of percutaneous gastrostomy tube. SURGEON: Kat Smith MD ANESTHESIA: Morphine intramuscular. FINDINGS: Significant bilious drainage from the previous gastrostomy tube site, a 22-[place] Island[place] KULWANT gastrostomy tube was placed with minimal resistance and the 10 mL balloon inflated without any resistance and bilious drainage withdrawn and sterile water placed without any resistance. DISPOSITION: The patient tolerated the procedure well. INDICATIONS AND DESCRIPTION OF PROCEDURE: The patient is a 67-year-old female with an extensive past medical history. She initially presented with a partial small bowel obstructive type of symptoms 03/01/2023 and was referred to us by her primary care physician. She had reported a 1-week history of abdominal distention as well as intermittent nausea and vomiting. She also was found to have an incisional hernia at that time. She underwent an EGD and her gastrojejunal anastomosis is widely patent and then we followed this with a repair of the incisional hernia where there was no bowel within the hernia sac. After surgery, she did improve and was able to tolerate a diet and have bowel function. She returned to the hospital on 03/08/2023 with recurrent type of symptoms of abdominal distention, nausea and vomiting and a CT scan again was consistent with at least a partial small-bowel obstruction. Judging by the previous workup and her recurrent symptoms, this likely represented an internal hernia versus a jejunal stricture. Due to these findings and the complicated nature of the Eliel-en-Y gastric bypass, it was decided to refer the patient back to her surgeon at [facility] for revisional surgery. This was done the same day and she also underwent placement of a gastrostomy tube in the gastric pouch, in case she was unable to take in adequate amounts of p.o. intake. Since the surgery and after being discharged home, she states that she has been able to take in adequate amounts of p.o. intake of both liquids and solids; however, she inadvertently completely removed the gastrostomy tube while removing her clothing. This was done late last night. Today, in the emergency department, upon examination, the entry site is still intact with a copious amount of bilious drainage still coming out likely consistent with a patent tract to the stomach. The abdomen was prepped and draped in standard surgical fashion. The patient was given 5 mg of morphine IM for pain control. A 22-[place] KULWANT gastrostomy tube was then lubricated with Surgilube and in a gentle twisting motion inserted into the previous tract to approximately 8 cm marking. The balloon was then insufflated with sterile water to 10 mL without any resistance. The gastrostomy tube was then accessed with a syringe and bilious content was aspirated out, sterile water was pushed back in and then pulled back out with more bilious content. The tube was then flushed with clean water and the rubber stops was placed on the ends. The outer rubber bolster was firmly placed onto the abdominal wall, which was approximately at 5.5 cm and a drain sponge was placed. Good hemostasis was observed. The patient tolerated the procedure well. We will recommend being very cognizant of the gastrostomy tube and to be aware of its location and placement in relation to all of her clothing at all times to prevent another dislodgement. The gastrostomy tube may be accessed and used at any time. However, at this time, it appears that she is able to take in adequate amounts of oral liquid and solid intake and the gastrostomy tube will just be used in a manner, in case that she is not able to take in adequate amounts of protein or liquids; however, if not used or necessary in the next 3 months, it sounds that this will be completely removed. If she has any issues or concerns, she is instructed to follow up in the office. Job ID: [id number] DocumentID: [id number] Dictated Date: 03/31/2023 19:51:15 Proration Clerk Date: 03/31/2023 22:58:00 Dictated By: KAT SMITH MD
== END 2023-03-31 20:11 | disposition home or self-care (01) ==
LOC: EDUNIT# 18:03 → ER 18:04
DX: K94.23 Gastrostomy malfunction (principal); L03.311 Cellulitis of abdominal wall; E11.9 Type 2 diabetes mellitus without complications; E66.9 Obesity, unspecified; Z68.41 Body mass index [BMI] 40.0-44.9, adult; Z79.4 Long term (current) use of insulin; Z87.19 Personal history of other diseases of the digestive system; Z90.49 Acquired absence of other specified parts of digestive tract; Z98.890 Other specified postprocedural states
CPT/HCPCS: 43762; 96372

== ENCOUNTER → 2023-04-29 | Outpatient (RCR) | payer MEDICARE, MEDICAID ==
[2023-04-27 13:20] VITALS: BP 145/69
[2023-04-27] MEDS: ERTAPENEM 1 GM/NS 50 ML IVPB IV SCH ×2 (14:00)
[2023-04-28] MEDS: ERTAPENEM 1 GM/NS 50 ML IVPB IV SCH ×2 (11:28)
[2023-04-28 11:31] VITALS: BP 130/73
[~2023-04-29] VITALS: Ht 167.7 cm; Wt 114.5 kg
[~2023-04-29] MED LIST changes: +CEFD125S3 PO
[2023-04-29 11:10] VITALS: BP 166/74
[2023-04-29] MEDS: ERTAPENEM 1 GM/NS 50 ML IVPB IV SCH ×2 (11:11)
== END ==
LOC: SDC 04-27 13:12
PROVIDERS: ATTEND Internal Medicine
DX: N39.0 Urinary tract infection, site not specified (principal)
CPT/HCPCS: 36410; 76937; 96365; C1751

== ENCOUNTER 2023-05-03 08:23 | Outpatient (RCR) | payer MEDICARE, MEDICAID ==
[2023-04-30] MEDS: ERTAPENEM 1 GM/NS 50 ML IVPB IV SCH ×2 (11:31)
[2023-04-30 11:51] VITALS: BP 152/98
[2023-05-01 11:33] VITALS: BP 145/92
[2023-05-01] MEDS: ERTAPENEM 1 GM/NS 50 ML IVPB IV SCH ×2 (11:40)
[2023-05-02] MEDS: ERTAPENEM 1 GM/NS 50 ML IVPB IV SCH ×2 (11:18)
[2023-05-02 11:22] VITALS: BP 165/94
[~2023-05-03] VITALS: Ht 167.6 cm; Wt 114.3 kg
[2023-05-03] MEDS: ERTAPENEM 1 GM/NS 50 ML IVPB IV SCH ×2 (10:25)
[2023-05-03 10:44] VITALS: BP 158/102
== END 2023-05-03 11:03 | disposition home or self-care (01) ==
LOC: SDC 08:23
PROVIDERS: ATTEND Internal Medicine
DX: N39.0 Urinary tract infection, site not specified (principal)
CPT/HCPCS: 96365